=== PATIENT | male | born 1930 | race Caucasian/White ===

== ENCOUNTER 2016-10-18 09:31 | Day surgery (SDC) | payer OTHER, MEDICARE ==
[2016-10-18 10:06] VITALS: BMI 27.9
[2016-10-18] MEDS ORDERED: LIDOCAINE HCL/PF 1% SDV 5ML VIAL ONE (10:19)
[2016-10-18] MEDS ORDERED: PROPOFOL 20 ML ONE ×3 (10:20)
[2016-10-18 11:20] VITALS: TEMP 98.1
[2016-10-18 12:20] VITALS: BP 119/72; PULSE 54
== END 2016-10-18 12:24 | disposition home or self-care (01) ==
LOC: JASU-ENDO 09:31
PROVIDERS: ATTEND Internal Medicine Gastroenterology
PROC: 0DJ08ZZ Inspection of Upper Intestinal Tract, Via Natural or Artificial Opening Endoscopic (ICD-10-PCS; principal; 2016-10-18 10:00)
DX: D64.9 Anemia, unspecified (principal); K31.819 Angiodysplasia of stomach and duodenum without bleeding; K44.9 Diaphragmatic hernia without obstruction or gangrene

== ENCOUNTER 2018-01-08 15:00 | Inpatient (IN) | payer OTHER, MEDICARE ==
--- NOTE | 2018-01-08 15:15 | PDOC ---
Rapid Medical Evaluation Chief Complaint: Shortness of Breath Time Seen by Provider: 01/08/18 15:08 Medical Evaluation: Allergies Allergy/AdvReac Type Severity Reaction Status Date / Time No Known Allergies Allergy Verified 01/08/18 15:07 Vital Signs Temp Pulse Resp BP Pulse Ox 97.7 F 70 19 113/55 97 01/08/18 15:07 01/08/18 15:07 01/08/18 15:07 01/08/18 15:07 01/08/18 15:07 01/08/18 15:12 Pt c/o: productive cough x 3 weeks, no fever, no edema, no wt change, no chest pain Pt on brief exam: + rhonchi to [place] bases Pt ordered for: chest pa/lat Pt to proceed to the ED Discharge Disposition - Diagnosis Cough - Referrals - Patient Instructions - Post Discharge Activity
[2018-01-08] MEDS ORDERED: ALBUTEROL SO4 0.083% IH SOL 2.5 MG/3 ML VIAL.NEB. NEB ONE ×2 (18:06→19:39)
[2018-01-08] MEDS ORDERED: ALBUTEROL SO4 2.5/IPRATROPIUM 0.5 INH SOL 3 ML VIAL.NEB. NEB ONE ×4 (18:06→23:40)
[2018-01-08 19:20] LABS: INR 3.46 (0.82-1.09); PROTHROMBIN TIME (PATIENT) 39.1 SEC (9.98-11.88)
[2018-01-08 19:47] LABS: ALBUMIN 3.3 g/dl (3.4-5.0); ALK PHOS 100 U/L (45-117); ANION GAP 4 (8-16); BILIRUBIN,TOTAL 0.7 mg/dL (0.2-1.0); BLOOD UREA NITROGEN 28 mg/dL (7-18); CHLORIDE 108 mmol/L (98-107); CO2 28 mmol/L (21-32); CREATININE 1.3 mg/dL (0.7-1.3); GLUCOSE,RANDOM 125 mg/dL (74-106); POTASSIUM 3.6 mmol/L (3.5-5.1); SGOT/AST 35 U/L (15-37); SGPT/ALT 24 U/L (12-78); SODIUM 140 mmol/L (136-145); TOT PROT 6.6 g/dl (6.4-8.2)
[2018-01-08 20:20] LABS: BASO % 0.5 % (0-2.0); EOS % 1.4 % (0-4.5); HEMATOCRIT 30.6 % (35.4-49); HEMOGLOBIN 10.5 GM/dL (11.7-16.9); LYMPH % 9.7 % (8-40); MCH 32.5 pg (25.7-33.7); MCHC 34.4 g/dl (32.0-35.9); MEAN CELL VOLUME 94.6 fl (80-96); MEAN PLT VOLUME 9.3 fl (7.5-11.1); MONO % 7.4 % (3.8-10.2); PLATELET COUNT 127 K/MM3 (134-434); RBC 3.23 M/mm3 (4.00-5.60); RDW 16.1 % (11.9-15.9); WHITE BLOOD COUNT 9.5 K/mm3 (4.0-10.0)
[2018-01-08] MEDS ORDERED: FUROSEMIDE 40 MG/4 ML INJECTABLE VIAL IVPUSH ONE (20:59)
--- NOTE | 2018-01-08 21:15 | PDOC ---
History of Present Illness - General Chief Complaint: Shortness of Breath Stated Complaint: DIFFICULTY BREATHING Time Seen by Provider: 01/08/18 15:08 History Source: Patient Exam Limitations: No Limitations - History of Present Illness Initial Comments: 01/08/18 21:05 Patient is an 87M with history of CABG, afib, CHF here today complaining here today complaining of 2-3 weeks of worsening shortness of breath. He was evaluated in the [place] ED yesterday for similar complaints, where he AMA' d to be evaluated by his primary care physician. He endorses associated cough, worsening dyspnea on exertion, and fatigue. He denies chest pain. He endorses bilateral leg swelling. Denies fevers, chills. States that he tried a course of azithromycin with no effect. Past History - Past Medical History Allergies/Adverse Reactions: Allergies Allergy/AdvReac Type Severity Reaction Status Date / Time No Known Allergies Allergy Verified 01/08/18 15:07 Home Medications: Ambulatory Orders Allopurinol [Zyloprim -] 150 mg PO DAILY 03/22/12 Losartan Potassium [Cozaar -] 25 mg PO DAILY 03/22/12 Ranolazine [Ranexa -] 500 mg PO BID 03/22/12 Rosuvastatin Calcium [Crestor] 5 mg PO WEFR 03/22/12 Warfarin Na [Coumadin -] 3 mg PO DAILY 03/22/12 Ascorbate Calcium [Vitamin C] 500 mg PO DAILY 09/04/16 Cholecalciferol (Vitamin D3) [Vitamin D -] 400 unit PO DAILY 09/04/16 L.acidoph,Paracasei, B.lactis [Probiotic] 1 each PO DAILY 09/04/16 Multivitamin [Poly-Vitamin] 1 each PO DAILY 09/04/16 Furosemide [Lasix -] 40 mg PO DAILY tablet 09/08/16 Spironolactone [Aldactone -] 25 mg PO DAILY #30 tablet 09/08/16 Anemia: No Asthma: No Cancer: No Cardiac Disorders: Yes (CABG,CARDIAC STENT,ATRIAL FIBRILLATION) CVA: No COPD: No CHF: Yes Dementia: No Diabetes: No GI Disorders: Yes (C-DIFF, HX OF PERFORATED COLON AFTER HIP SURGERY) Disorders: (NEPHROLITHIASIS) HTN: Yes Hypercholesterolemia: Yes Liver Disease: No Seizures: No Thyroid Disease: No - Surgical History Abdominal Surgery: Yes (12/2011 hemicolectomy for perforated cecum) Appendectomy: Yes Cardiac Surgery: Yes (2 VESSEL CABG,CARDIAC STENT) Cholecystectomy: No Lung Surgery: No Neurologic Surgery: No Orthopedic Surgery: Yes (orif rt forearm; lt hip replacement 10 yrs ago; rt hip 2011) - Suicide/Smoking/Psychosocial Hx Smoking History: Former smoker Have you smoked in the past 12 months: No Number of Cigarettes Smoked Daily: 0 If you are a former smoker, when did you quit?: 1972 Information on smoking cessation initiated: No Hx Alcohol Use: Yes (SOCIAL) Drug/Substance Use Hx: No Substance Use Type: None Hx Substance Use Treatment: No Review of Systems - Review of Systems Able to Perform ROS?: Yes Comments:: 01/08/18 21:15 GENERAL/CONSTITUTIONAL: No fever or chills. No weakness. HEAD, EYES, EARS, NOSE AND THROAT: No change in vision. No sore throat. CARDIOVASCULAR: No chest pain. Positive for shortness of breath RESPIRATORY: Positive for cough, wheezing. GASTROINTESTINAL: No nausea, vomiting, diarrhea or constipation. GENITOURINARY: No dysuria, frequency, or change in urination. MUSCULOSKELETAL: No joint or muscle swelling or pain. No neck or back pain. SKIN: No rash NEUROLOGIC: No headache, vertigo, loss of consciousness, or change in strength/ sensation. HEMATOLOGIC/LYMPHATIC: No anemia, no history of blood clots. ALLERGIC/IMMUNOLOGIC: No hives or skin allergy. *Physical Exam - Vital Signs Last Vital Signs Temp Pulse Resp BP Pulse Ox 97.7 F 70 19 113/55 97 01/08/18 15:07 01/08/18 15:07 01/08/18 15:07 01/08/18 15:07 01/08/18 15:07 - Physical Exam Comments: 01/08/18 21:15 GENERAL: Awake, alert, and fully oriented, in no acute distress HEAD: No signs of trauma, normocephalic, atraumatic EYES: PERRLA, EOMI, sclera anicteric, conjunctiva clear ENT: Auricles normal inspection, hearing grossly normal, nares patent, oropharynx clear without exudates. Moist mucosa NECK: Normal ROM, supple, no lymphadenopathy, JVD, or masses LUNGS: No respiratory distress, no accessory muscle use, wheezes, coarse breath sounds bilaterally HEART: Regular rate and rhythm, normal S1 and S2, no murmurs, rubs or gallops, peripheral pulses normal and equal bilaterally. ABDOMEN: Soft, nontender, normoactive bowel sounds. No guarding, no rebound. No masses EXTREMITIES: Normal inspection, Normal range of motion, positive for lower extremity edema. No clubbing or cyanosis. NEUROLOGICAL: Cranial nerves II through XII grossly intact. Normal speech, normal gait, no focal sensorimotor deficits SKIN: Warm, Dry, normal turgor, no rashes or lesions noted. ED Treatment Course - LABORATORY CBC & Chemistry Diagram: 01/08/18 18:54 01/08/18 18:54 - ADDITIONAL ORDERS Additional order review: Laboratory Results 01/08/18 01/08/18 01/08/18 18:55 18:54 18:54 WBC RBC Hgb Hct MCV MCH MCHC RDW Plt Count MPV Neutrophils % Lymphocytes % Monocytes % Eosinophils % Basophils % PT with INR 39.10 H INR 3.46 H Sodium Potassium Chloride Carbon Dioxide Anion Gap BUN Creatinine Creat Clearance w eGFR Random Glucose Calcium Total Bilirubin AST ALT Alkaline Phosphatase Creatine Kinase 394 H Troponin I 0.05 D B-Natriuretic Peptide 4646.77 H Total Protein Albumin 01/08/18 01/08/18 18:54 18:54 WBC 9.5 D RBC 3.23 L Hgb 10.5 L Hct 30.6 L MCV 94.6 MCH 32.5 MCHC 34.4 RDW 16.1 H Plt Count 127 L D MPV 9.3 Neutrophils % 81.0 Lymphocytes % 9.7 D Monocytes % 7.4 Eosinophils % 1.4 D Basophils % 0.5 PT with INR INR Sodium 140 Potassium 3.6 Chloride 108 H Carbon Dioxide 28 Anion Gap 4 L BUN 28 H Creatinine 1.3 Creat Clearance w eGFR 52.10 Random Glucose 125 H D Calcium 8.0 L Total Bilirubin 0.7 D AST 35 D ALT 24 D Alkaline Phosphatase 100 Creatine Kinase Troponin I B-Natriuretic Peptide Total Protein 6.6 Albumin 3.3 L 01/08/18 18:54 RBC 3.23 L MCV 94.6 MCHC 34.4 RDW 16.1 H MPV 9.3 Neutrophils % 81.0 Lymphocytes % 9.7 D Monocytes % 7.4 Eosinophils % 1.4 D Basophils % 0.5 - Medications Given in the ED: ED Medications Discontinued Medications Generic Name Dose Route Start Last Admin Trade Name Freq PRN Reason Stop Dose Admin Albuterol Sulfate 1 amp 01/08/18 18:06 01/08/18 19:54 Ventolin 0.083% Nebulizer Soln - NEB 01/08/18 18:07 1 amp ONCE ONE Administration Albuterol/Ipratropium 1 amp 01/08/18 18:06 01/08/18 19:54 Duoneb - NEB 01/08/18 18:07 1 amp ONCE ONE Administration Medical Decision Making - Medical Decision Making 01/08/18 21:17 Patient is 87M with history of CABG, chf, HTN, HLD, afib here today with shortness of breath. Vital signs stable and normal. Differential diagnosis includes, but is not limited to: pneumonia, chf exacerbation, obstructive lung disease. EKG shows junctional rhythm with rate of 60. Diffusely flattened t waves. No st elevations/depressions. Normal QRS, QTc. 01/08/18 21:19 Laboratory Tests 01/08/18 01/08/18 01/08/18 00:05 00:05 00:05 WBC 14.6 H D Hgb 11.5 L RDW 16.6 H INR 3.12 H Troponin I B-Natriuretic Peptide 3841.27 H 01/08/18 01/08/18 01/08/18 00:05 18:54 18:54 WBC 9.5 D Hgb 10.5 L RDW 16.1 H INR Troponin I 0.11 H D 0.05 D B-Natriuretic Peptide 01/08/18 01/08/18 18:54 18:55 WBC Hgb RDW INR 3.46 H Troponin I B-Natriuretic Peptide 4646.77 H CBC shows resolution of his leukocytosis from this morning. Troponin has moved from 0.11 to .05. BNP has elevated. INR therapeutic. CXR shows pulmonary vascular changes. Will give lasix 20mg IV. Will admit to hospitalist for chf exacerbation. *DC/Admit/Observation/Transfer Diagnosis at time of Disposition: CHF (congestive heart failure) - Discharge Dispostion Condition at time of disposition: Good Admit: Yes - Referrals - Patient Instructions - Post Discharge Activity
--- NOTE | 2018-01-08 21:17 | PDOC ---
Attending Attestation - Resident Resident Name: Ryan Figueroa - ED Attending Attestation I have performed the following: I have examined & evaluated the patient, The case was reviewed & discussed with the resident, I agree w/resident's findings & plan, Exceptions are as noted - HPI HPI: 01/08/18 21:16 87-year-old male presents with shortness of breath and some lower extremity edema. He has past medical history of coronary artery disease and CHF - Physicial Exam PE: 01/09/18 02:12 pt has scattered rhonchi on lung exam and LE edema - Medical Decision Making 01/09/18 02:13 pt admitted for chf ,IV lasix
[2018-01-08] MEDS ORDERED: FUROSEMIDE 40 MG/4 ML INJECTABLE VIAL ONE (22:08)
[2018-01-08] MEDS ORDERED: methylPREDNISolone NA SUCC 125 MG/2 ML VIAL IVPUSH ONE (22:45)
[2018-01-08] MEDS ORDERED: AZITHROMYCIN IVPB 500 MG in DEXTROSE 5%-WATER - 250 ML IVPB ONE (22:45)
--- NOTE | 2018-01-08 22:50 | HP ---
CHIEF COMPLAINT: sob x 2-3 weeks PCP: Shawna HISTORY OF PRESENT ILLNESS: This is an 87 year old male with a past medical history of CAD, Afib, CHF, HTN, HLD who presented to the eD with a 2-3 week history of SOB x 2-3 weeks. Pt was at [facility] yesterday and signed AMA. Upon exam pt still with SOB. Denies chest pain. ER course was notable for: (1) WBC 9.5 (2) BNP 4646, Trop 0.05 (3) INR 3.45 Recent Travel: pt denies PAST MEDICAL HISTORY: CAD s/p CABG and stent, AFib on warfarin, CHF, HTN, HLD, C diff, perforated colon PAST SURGICAL HISTORY: hemicolectomy 12/2011 2vCABG cardiac stent ORIF R forearm L hip replacement approx 10y ago R hip replacement 2011 Social History: Smoking: pt denies current, quit 45y ago, previous 1ppd Alcohol: pt denies Drugs: pt denies Family History: mother in her 70s, HF father in his 60s, brain attack brother early 70s, [place] unknown typ brother late 60s, HF Allergies No Known Allergies Allergy (Verified 01/08/18 15:07) HOME MEDICATIONS: 3 Medication Instructions Recorded Allopurinol [Zyloprim -] 150 mg PO DAILY 03/22/12 Losartan Potassium [Cozaar -] 25 mg PO DAILY 03/22/12 Ranolazine [Ranexa -] 500 mg PO BID 03/22/12 Rosuvastatin Calcium [Crestor] 5 mg PO WEFR 03/22/12 Warfarin Na [Coumadin -] 3 mg PO DAILY 03/22/12 Ascorbate Calcium [Vitamin C] 500 mg PO DAILY 09/04/16 Cholecalciferol (Vitamin D3) 400 unit PO DAILY 09/04/16 [Vitamin D -] L.acidoph,Paracasei, B.lactis 1 each PO DAILY 09/04/16 [Probiotic] Multivitamin [Poly-Vitamin] 1 each PO DAILY 09/04/16 Furosemide [Lasix -] 40 mg PO DAILY tablet 09/08/16 Spironolactone [Aldactone -] 25 mg PO DAILY #30 tablet 09/08/16 REVIEW OF SYSTEMS CONSTITUTIONAL: Absent: fever, chills, diaphoresis, generalized weakness, malaise, loss of appetite, weight change HEENT: Absent: rhinorrhea, nasal congestion, throat pain, throat swelling, difficulty swallowing, mouth swelling, ear pain, eye pain, visual changes CARDIOVASCULAR: Absent: chest pain, syncope, palpitations, irregular heart rate, lightheadedness , peripheral edema RESPIRATORY: Present: cough, shortness of breath, dyspnea with exertion, orthopnea, wheezing Absent: stridor, hemoptysis GASTROINTESTINAL: Absent: abdominal pain, abdominal distension, nausea, vomiting, diarrhea, constipation, melena, hematochezia GENITOURINARY: Absent: dysuria, frequency, urgency, hesitancy, hematuria, flank pain, genital pain MUSCULOSKELETAL: Absent: myalgia, arthralgia, joint swelling, back pain, neck pain SKIN: Absent: rash, itching, pallor HEMATOLOGIC/IMMUNOLOGIC: Absent: easy bleeding, easy bruising, lymphadenopathy, frequent infections ENDOCRINE: Absent: unexplained weight gain, unexplained weight loss, heat intolerance, cold intolerance NEUROLOGIC: Absent: headache, focal weakness or paresthesias, dizziness, unsteady gait, seizure, mental status changes, bladder or bowel incontinence PSYCHIATRIC: Absent: anxiety, depression, suicidal or homicidal ideation, hallucinations. PHYSICAL EXAMINATION Vital Signs - 24 hr 3 01/08/18 15:07 Temperature 97.7 F Pulse Rate 70 Respiratory 19 Rate Blood Pressure 113/55 O2 Sat by Pulse 97 Oximetry (%) GENERAL: Awake, alert, and fully oriented, in no acute distress. HEAD: Normal with no signs of trauma. EYES: Pupils equal, round and reactive to light, extraocular movements intact, sclera anicteric, conjunctiva clear. No lid lag. EARS, NOSE, THROAT: Ears normal, nares patent, oropharynx clear without exudates. Moist mucous membranes. NECK: Normal range of motion, supple without lymphadenopathy, JVD, or masses. LUNGS: + wheezing and rhonchi bilat. No accessory muscle use. HEART: Regular rate and rhythm, normal S1 and S2 without murmur, rub or gallop. ABDOMEN: Soft, nontender, not distended, normoactive bowel sounds, no guarding, no rebound, no masses. No hepatomegaly or splenomegaly. MUSCULOSKELETAL: Normal range of motion at all joints. No bony deformities or tenderness. No CVA tenderness. UPPER EXTREMITIES: 2+ pulses, warm, well-perfused. No cyanosis. No clubbing. No peripheral edema. LOWER EXTREMITIES: 2+ pulses, warm, well-perfused. No calf tenderness. No peripheral edema. NEUROLOGICAL: Cranial nerves II-XII intact. Normal speech. Normal gait. PSYCHIATRIC: Cooperative. Good eye contact. Appropriate mood and affect. SKIN: Warm, dry, normal turgor, no rashes or lesions noted, normal capillary refill. Laboratory Results - last 24 hr 3 01/08/18 01/08/18 01/08/18 18:54 18:54 18:54 WBC 9.5 D RBC 3.23 L Hgb 10.5 L Hct 30.6 L MCV 94.6 MCH 32.5 MCHC 34.4 RDW 16.1 H Plt Count 127 L D MPV 9.3 Neutrophils % 81.0 Lymphocytes % 9.7 D Monocytes % 7.4 Eosinophils % 1.4 D Basophils % 0.5 PT with INR INR Sodium 140 Potassium 3.6 Chloride 108 H Carbon Dioxide 28 Anion Gap 4 L BUN 28 H Creatinine 1.3 Creat Clearance w eGFR 52.10 Random Glucose 125 H D Calcium 8.0 L Total Bilirubin 0.7 D AST 35 D ALT 24 D Alkaline Phosphatase 100 Creatine Kinase 394 H Troponin I 0.05 D B-Natriuretic Peptide Total Protein 6.6 Albumin 3.3 L 3 01/08/18 01/08/18 18:54 18:55 WBC RBC Hgb Hct MCV MCH MCHC RDW Plt Count MPV Neutrophils % Lymphocytes % Monocytes % Eosinophils % Basophils % PT with INR 39.10 H INR 3.46 H Sodium Potassium Chloride Carbon Dioxide Anion Gap BUN Creatinine Creat Clearance w eGFR Random Glucose Calcium Total Bilirubin AST ALT Alkaline Phosphatase Creatine Kinase Troponin I B-Natriuretic Peptide 4646.77 H Total Protein Albumin ASSESSMENT/PLAN: 87yM with PMH CAD s/p CABG and stent, AFib on warfarin, CHF, HTN, HLD, C diff, perforated colon presented to the ED with a 2-3 week history of worsening SOB, [place]. CHF exac - given lasix 20 IVP in ed, nurse to inform if no urine output and will increase dose - lasix 40mg IVP daily - cardiology consult Acute bronchitis - solumedrol 125 in ED, 40mg Q6h - azithromycin 500mg IVPB in ED, 250 daily - consider pulm consult - influenza swab Afib - INR supratherapeutic, hold until therapeutic - rate controlled HTN - cont cozaar CAD - cont ranexa, crestor DVT PPX - on coumadin FEN - tolerating po - bmp in am - low sodium diet Dispo: pt currently requires further observation for management of his emergent condition. Visit type - Emergency Visit Emergency Visit: Yes ED Registration Date: 01/08/18 Care time: The patient presented to the Emergency Department on the above date and was hospitalized for further evaluation of their emergent condition. - New Patient This patient is new to me today: Yes Date on this admission: 01/08/18 - Critical Care Critical Care patient: No Hospitalist Screening - Colonoscopy Questionnaire Colonoscopy Questionnaire: Colonoscopy Questionnaire - Patient: 50 - 75 years old and never had a screening colonoscopy: No History of colon or rectal polyps, or CA: No History of IBD, Crohn's disease or UC: No History of abdominal radiation therapy as a child: No - Relative: 1 with colon or rectal CA, or polyps at age 60 or younger: No Colon or rectal CA diagnosed at age 45 or younger: No Multiple relatives with colon or rectal CA: No - Outcome: Screening Result: Negative Screen
[2018-01-08] MEDS ORDERED: AZITHROMYCIN IVPB 250 ML IVPB ONE (23:41)
[2018-01-08] MEDS ORDERED: methylPREDNISolone NA SUCC 125 MG/2 ML VIAL ONE ×2 (23:41→23:42)
[2018-01-09] MEDS ORDERED: FUROSEMIDE 40 MG/4 ML INJECTABLE VIAL IVPUSH ONE (01:24)
[2018-01-09] MEDS ORDERED: FUROSEMIDE 40 MG/4 ML INJECTABLE VIAL ONE ×2 (01:34→10:08)
[2018-01-09] MEDS ORDERED: methylPREDNISolone NA SUCC 40 MG/1 ML VIAL ONE ×2 (01:37→10:05)
[2018-01-09] MEDS: methylPREDNISolone NA SUCC 40 MG/1 ML VIAL IVPUSH SCH ×2 (03:13→10:06)
[2018-01-09 07:57] LABS: BASO % 0.2 % (0-2.0); HEMATOCRIT 29.9 % (35.4-49); HEMOGLOBIN 10.1 GM/dL (11.7-16.9); LYMPH % 3.4 % (8-40); MCHC 33.7 g/dl (32.0-35.9); MEAN CELL VOLUME 94.9 fl (80-96); MEAN PLT VOLUME 8.4 fl (7.5-11.1); NEUT % 95.4 % (42.8-82.8); PLATELET COUNT 116 K/MM3 (134-434); RBC 3.15 M/mm3 (4.00-5.60); RDW 15.8 % (11.9-15.9); WHITE BLOOD COUNT 7.4 K/mm3 (4.0-10.0)
[2018-01-09 08:10] LABS: ANION GAP 6 (8-16); BLOOD UREA NITROGEN 30 mg/dL (7-18); CALCIUM 8.1 mg/dL (8.5-10.1); CHLORIDE 104 mmol/L (98-107); CO2 28 mmol/L (21-32); CREATININE 1.4 mg/dL (0.7-1.3); GLUCOSE,RANDOM 172 mg/dL (74-106); MAGNESIUM 1.9 mg/dL (1.8-2.4); PHOSPHOROUS 3.3 mg/dL (2.5-4.9); POTASSIUM 3.8 mmol/L (3.5-5.1); SODIUM 138 mmol/L (136-145)
[2018-01-09] MEDS ORDERED: ALBUTEROL SO4 2.5/IPRATROPIUM 0.5 INH SOL 3 ML VIAL.NEB. NEB ONE ×2 (08:46→10:07)
[2018-01-09] MEDS ORDERED: FUROSEMIDE 40 MG/4 ML INJECTABLE VIAL IVPUSH SCH (10:00)
[2018-01-09] MEDS: LACTOBACILLUS ACIDOPHILUS 1 CAP PO SCH (10:00)
[2018-01-09] MEDS: LOSARTAN POTASSIUM 50 MG TABLET (FP) PO SCH (10:01)
[2018-01-09] MEDS: MULTIVITAMINS (DAILY MVI) TABLET (FP) PO SCH (10:02)
[2018-01-09] MEDS: ASCORBIC ACID 500 MG TABLET (FP) PO SCH (10:02)
[2018-01-09] MEDS: RANOLAZINE E.R. 500 MG TABLET (FP) PO SCH ×2 (10:02→22:27)
[2018-01-09] MEDS: ALLOPURINOL 100 MG TABLET (FP) PO SCH (10:03)
[2018-01-09] MEDS: CHOLECALCIFEROL (VITAMIN D3) 400 UNIT TABLET (FP) PO SCH (10:03)
[2018-01-09] MEDS: ALBUTEROL SO4 2.5/IPRATROPIUM 0.5 INH SOL 3 ML VIAL.NEB. NEB SCH ×4 (10:08→20:44)
[2018-01-09] MEDS: ROSUVASTATIN CA 5 MG TABLET (FP) PO SCH (10:28)
--- NOTE | 2018-01-09 10:45 | PN ---
Progress Note, Physician Chief Complaint: Mr Aleman says he is doing well today. Says he is still short of breath but is feeling better. No cp or n/v. - Current Medication List Current Medications: Active Medications Albuterol/Ipratropium (Duoneb -) 1 amp NEB RQID [facility] Last Admin: 01/09/18 10:08 Dose: 1 amp Allopurinol (Zyloprim -) 150 mg PO DAILY [facility] Last Admin: 01/09/18 10:03 Dose: 150 mg Ascorbic Acid (Vitamin C -) 500 mg PO DAILY [facility] Last Admin: 01/09/18 10:02 Dose: 500 mg Cholecalciferol (Vitamin D3 -) 400 unit PO DAILY [facility] Last Admin: 01/09/18 10:03 Dose: 400 unit Furosemide (Lasix Injection -) 40 mg IVPUSH DAILY [facility] Last Admin: 01/09/18 10:09 Dose: 40 mg Azithromycin 250 mg/ Dextrose 250 mls @ 250 mls/hr IVPB [facility] Lactobacillus Acidophilus (Bacid -) 1 tab PO DAILY [facility] Last Admin: 01/09/18 10:00 Dose: 1 tab Losartan Potassium (Cozaar -) 25 mg PO DAILY [facility] Last Admin: 01/09/18 10:01 Dose: 25 mg Methylprednisolone Sodium Succinate (Solu-Medrol -) 40 mg IVPUSH Q6H-IV [facility] Last Admin: 01/09/18 10:06 Dose: 40 mg Multivitamins/Minerals/Vitamin C (Tab-A-Vit -) 1 tab PO DAILY [facility] Last Admin: 01/09/18 10:02 Dose: 1 tab Ranolazine (Ranexa -) 500 mg PO BID [facility] Last Admin: 01/09/18 10:02 Dose: 500 mg Rosuvastatin Calcium (Crestor -) 5 mg PO WEFR [facility] Last Admin: 01/09/18 10:28 Dose: 5 mg - Objective Vital Signs: Vital Signs Temperature 36.9 C 01/09/18 00:02 Pulse Rate 62 01/09/18 07:00 Respiratory Rate 18 01/09/18 07:00 Blood Pressure 123/75 01/09/18 07:00 O2 Sat by Pulse Oximetry (%) 98 01/09/18 07:05 Constitutional: Yes: Well Nourished, No Distress, Calm Cardiovascular: Yes: Regular Rate and Rhythm. No: Gallop, Murmur, Rub Respiratory: Yes: Regular, On Nasal O2, Rhonchi. No: CTA Bilaterally, Rales, Wheezes Gastrointestinal: Yes: Normal Bowel Sounds, Soft. No: Distention, Tenderness Extremities: Yes: WNL Edema: Yes Edema: LLE: Trace, RLE: Trace Labs: CBC, BMP 01/09/18 06:44 01/09/18 06:44 INR, PTT INR 3.46 (0.82-1.09) H 01/08/18 18:54 Problem List - Problems (1) Acute on chronic diastolic (congestive) heart failure Assessment/Plan: -case d/w cardiology -check ECHO -continue lasix 40mg IV daily -continue losartan -monitor for improvement Code(s): I50.33 - ACUTE ON CHRONIC DIASTOLIC (CONGESTIVE) HEART FAILURE (2) COPD (chronic obstructive pulmonary disease) Assessment/Plan: -seen on chest x-ray -continue bronchodilators -change solumedrol to prednisone -attempt to minimize steroids -continue azithromycin Code(s): J44.9 - CHRONIC OBSTRUCTIVE PULMONARY DISEASE, UNSPECIFIED (3) Atrial fibrillation Assessment/Plan: -sounded in sinus rhythm on exam -rate controlled -supratherapeutic INR, hold coumadin Code(s): I48.91 - UNSPECIFIED ATRIAL FIBRILLATION Qualifiers: Atrial fibrillation type: chronic Qualified Code(s): I48.2 - Chronic atrial fibrillation (4) CAD (coronary artery disease) Assessment/Plan: -quiescent -cardiology following -continue home regimen Code(s): I25.10 - ATHSCL HEART DISEASE OF [place] CORONARY ARTERY W/O ANG PCTRS Qualifiers: Coronary Disease-Associated Artery/Lesion type: [place] artery [place] vs. transplanted heart: [place] heart Associated angina: without angina Qualified Code(s): I25.10 - Atherosclerotic heart disease of [place] coronary artery without angina pectoris (5) Elevated INR Assessment/Plan: -hold coumadin -recheck INR in am Code(s): R79.1 - ABNORMAL COAGULATION PROFILE (6) HTN (hypertension) Assessment/Plan: -well controlled -continue current management Code(s): I10 - ESSENTIAL (PRIMARY) HYPERTENSION Qualifiers: Hypertension type: essential hypertension Qualified Code(s): I10 - Essential (primary) hypertension (7) Hyperlipidemia Assessment/Plan: -continue crestor Code(s): E78.5 - HYPERLIPIDEMIA, UNSPECIFIED Qualifiers: Hyperlipidemia type: pure hypercholesterolemia
[2018-01-09 11:17] LABS: INR 3.21 (0.82-1.09); PROTHROMBIN TIME (PATIENT) 36.3 SEC (9.98-11.88)
--- NOTE | 2018-01-09 11:20 | EKG ---
Test Reason : Blood Pressure : / mmHG Vent. Rate : 060 BPM Atrial Rate : 312 BPM P-R Int : 000 ms QRS Dur : 108 ms QT Int : 452 ms P-R-T Axes : 000 086 -64 degrees QTc Int : 452 ms POOR DATA QUALITY, INTERPRETATION MAY BE ADVERSELY AFFECTED JUNCTIONAL RHYTHM T WAVE ABNORMALITY, CONSIDER INFERIOR ISCHEMIA ABNORMAL ECG WHEN COMPARED WITH ECG OF 07-JAN-2018 23:49, T WAVE INVERSION NOW EVIDENT IN INFERIOR LEADS Confirmed by CARRILLO BASHIR, JA ([id number] on 01/09/2018 11:19:52 AM Referred By: Confirmed By:JA VIZCAINO MD
--- NOTE | 2018-01-09 14:20 | CON.CARD ---
Consult Consult Specialty:: Cardiology Referred by:: Ryan Matos MD Reason for Consultation:: Dyspnea - History of Present Illness Chief Complaint: Dyspnea History of Present Illness: PCP: Shawna HISTORY OF PRESENT ILLNESS: This is an 87 year old male with a past medical history of CAD s/p CABG (JHAVERI- mLAD, SVG->RPDA), s/p LUIS EDUARDO LAD, persistent Afib on coumadin per INR, diastolic dysfunction, HTN, HLD, moderate carotid stenosis who presented with a 2-3 week history of SOB with exertion and orthopnea improved with initiation of diuresis. He denies associated sxs of chest pain, near or true syncope, palpitations, PND, LE edema, medication or diet noncompliance or NSAID use. ER course was notable for: (1) WBC 9.5 (2) BNP 4646, Trop 0.05 (3) INR 3.45 Recent Travel: pt denies PAST MEDICAL HISTORY: CAD s/p CABG and stent, AFib on warfarin, CHF, HTN, HLD, C diff, perforated colon PAST SURGICAL HISTORY: hemicolectomy 12/2011 2vCABG cardiac stent ORIF R forearm L hip replacement approx 10y ago R hip replacement 2011 Social History: Smoking: pt denies current, quit 45y ago, previous 1ppd Alcohol: pt denies Drugs: pt denies Family History: mother in her 70s, HF father in his 60s, brain attack brother early 70s, [place] unknown typ brother late 60s, HF Allergies No Known Allergies Allergy (Verified 01/08/18 15:07) - History Source History Provided By: Patient Limitations to Obtaining History: No Limitations - Past Medical History Cardio/Vascular: Yes: AFIB, CAD, HTN, Hyperlipdemia - Past Surgical History Past Surgical History: Yes: CABG, Joint Replacement, Stent - Alcohol/Substance Use Hx Alcohol Use: Yes (SOCIAL) History of Substance Use: reports: None - Smoking History Smoking history: Former smoker Have you smoked in the past 12 months: No Aproximately how many cigarettes per day: 0 If you are a former smoker, when did you quit?: 1971 - Social History ADL: Independent History of Recent Travel: No Home Medications - Allergies Allergies/Adverse Reactions: Allergies Allergy/AdvReac Type Severity Reaction Status Date / Time No Known Allergies Allergy Verified 01/08/18 15:07 - Home Medications Home Medications: Ambulatory Orders Allopurinol [Zyloprim -] 150 mg PO DAILY 03/22/12 Losartan Potassium [Cozaar -] 25 mg PO DAILY 03/22/12 Ranolazine [Ranexa -] 500 mg PO BID 03/22/12 Rosuvastatin Calcium [Crestor] 5 mg PO WEFR 03/22/12 Warfarin Na [Coumadin -] 3 mg PO DAILY 03/22/12 Ascorbate Calcium [Vitamin C] 500 mg PO DAILY 09/04/16 Cholecalciferol (Vitamin D3) [Vitamin D -] 400 unit PO DAILY 09/04/16 L.acidoph,Paracasei, B.lactis [Probiotic] 1 each PO DAILY 09/04/16 Multivitamin [Poly-Vitamin] 1 each PO DAILY 09/04/16 Furosemide [Lasix -] 40 mg PO DAILY tablet 09/08/16 Spironolactone [Aldactone -] 25 mg PO DAILY #30 tablet 09/08/16 Family Disease History - Family Disease History Family Disease History: Heart Disease: Mother, Brother, Other: Father Review of Systems - Review of Systems Cardiovascular: reports: Shortness of Breath Respiratory: reports: Orthopnea - Risk Factors Known Risk Factors: Yes: Hypercholesterolemia, Hypertension Vital Signs: Vital Signs Temperature 98.5 F 01/09/18 00:02 Pulse Rate 62 01/09/18 07:00 Respiratory Rate 18 01/09/18 07:00 Blood Pressure 123/75 01/09/18 07:00 O2 Sat by Pulse Oximetry (%) 98 01/09/18 07:05 Constitutional: Yes: No Distress, Calm Neck: Yes: Supple Respiratory: Yes: Regular, Diminished Gastrointestinal: Yes: Normal Bowel Sounds, Soft Cardiovascular: Yes: Regular Rate and Rhythm JVD: No Carotid Bruit: No Heart Sounds: Yes: S1, S2 Murmur: Yes: Systolic Murmur, Grade 1 Edema: No - Other Data Labs, Other Data: CBC, BMP 01/09/18 06:44 01/09/18 06:44 INR, PTT INR 3.21 (0.82-1.09) H 01/09/18 10:00 Troponin, BNP 01/08/18 01/08/18 01/09/18 18:54 18:55 01:00 Troponin I 0.05 D 0.06 H B-Natriuretic Peptide 4646.77 H 01/09/18 06:44 Troponin I 0.04 D B-Natriuretic Peptide Troponin, BNP 01/08/18 01/08/18 01/09/18 18:54 18:55 01:00 Troponin I 0.05 D 0.06 H B-Natriuretic Peptide 4646.77 H 01/09/18 06:44 Troponin I 0.04 D B-Natriuretic Peptide Afib @ 60 PRWP Echo: Report Reviewed Ejection Fraction %: LVEF > or = 40 % Imaging - Results Chest X-ray: Report Reviewed (COPD, trace effusion) Problem List - Problems (1) COPD (chronic obstructive pulmonary disease) Code(s): J44.9 - CHRONIC OBSTRUCTIVE PULMONARY DISEASE, UNSPECIFIED Qualifiers: COPD type: unspecified COPD Qualified Code(s): J44.9 - Chronic obstructive pulmonary disease, unspecified (2) Acute on chronic diastolic (congestive) heart failure Code(s): I50.33 - ACUTE ON CHRONIC DIASTOLIC (CONGESTIVE) HEART FAILURE (3) Anemia Code(s): D64.9 - ANEMIA, UNSPECIFIED Qualifiers: Anemia type: unspecified type Qualified Code(s): D64.9 - Anemia, unspecified (4) Atrial fibrillation Code(s): I48.91 - UNSPECIFIED ATRIAL FIBRILLATION Qualifiers: Atrial fibrillation type: chronic Qualified Code(s): I48.2 - Chronic atrial fibrillation (5) Elevated INR Code(s): R79.1 - ABNORMAL COAGULATION PROFILE (6) HTN (hypertension) Code(s): I10 - ESSENTIAL (PRIMARY) HYPERTENSION Qualifiers: Hypertension type: essential hypertension Qualified Code(s): I10 - Essential (primary) hypertension (7) Hx of CABG Code(s): Z95.1 - PRESENCE OF AORTOCORONARY BYPASS GRAFT (8) Hyperlipidemia Code(s): E78.5 - HYPERLIPIDEMIA, UNSPECIFIED Qualifiers: Hyperlipidemia type: pure hypercholesterolemia (9) Over-anticoagulated Code(s): [id number] - (10) Pulmonary hypertension Code(s): I27.2 - OTHER SECONDARY PULMONARY HYPERTENSION * DO NOT USE * Assessment/Plan 10/26/2016 Echo: Normal LV size and fxn, mod-severe TR RVSP 56 mmHg 11/07/2016 P-Myoview: No ischemia, LVEF 72% 1. Acute on chronic LV diastolic failure with mod-severe TR 2. CAD s/p CABG and LUIS EDUARDO LAD, angina pectoris 3. Persistent AFib with slow ventricular response [id number] on warfarin with supratherapeutic INR 4. HTN/HCVD 5. HLD, 6. C diff, perforated colon post partial colectomy 7. COPD 8. Anemia 9. Acute on CKD referable to #1 P:1. IV diuresis with monitor diuretic response, renal fxn and electrolytes 2. Continue losartan 25 qd, Ranexa 500 bid, dose Coumadin per INR, Crestor 5 qd 3. BD, rapid steroid taper, O2 as needed 4. Repeat echocardiogram to assess ventricular and valve fxn 5. Thank you for consultative opportunity
[2018-01-09] MEDS: AZITHROMYCIN IVPB 250 MG in DEXTROSE 5%-WATER - 250 ML IVPB SCH (22:59)
[2018-01-10 01:06] VITALS: BMI 28.6
[2018-01-10] MEDS: ALBUTEROL SO4 2.5/IPRATROPIUM 0.5 INH SOL 3 ML VIAL.NEB. NEB SCH ×4 (07:48→19:37)
[2018-01-10 08:51] LABS: BASO % 0.1 % (0-2.0); LYMPH % 4.8 % (8-40); MCH 32.4 pg (25.7-33.7); MCHC 34.6 g/dl (32.0-35.9); MEAN CELL VOLUME 93.8 fl (80-96); MEAN PLT VOLUME 8.2 fl (7.5-11.1); MONO % 5.7 % (3.8-10.2); NEUT % 89.4 % (42.8-82.8); PLATELET COUNT 140 K/MM3 (134-434); RBC 3.09 M/mm3 (4.00-5.60); WHITE BLOOD COUNT 13.6 K/mm3 (4.0-10.0)
[2018-01-10 08:57] LABS: INR 3.14 (0.82-1.09); PROTHROMBIN TIME (PATIENT) 35.5 SEC (9.98-11.88)
[2018-01-10 09:17] LABS: ANION GAP 8 (8-16); BLOOD UREA NITROGEN 52 mg/dL (7-18); CALCIUM 7.9 mg/dL (8.5-10.1); CHLORIDE 101 mmol/L (98-107); CO2 27 mmol/L (21-32); CREATININE 2.1 mg/dL (0.7-1.3); GLUCOSE,RANDOM 145 mg/dL (74-106); MAGNESIUM 1.9 mg/dL (1.8-2.4); PHOSPHOROUS 3.7 mg/dL (2.5-4.9); POTASSIUM 3.8 mmol/L (3.5-5.1); SODIUM 136 mmol/L (136-145)
[2018-01-10] MEDS: predniSONE 20 MG TABLET (UD) PO SCH (09:34)
[2018-01-10] MEDS: LACTOBACILLUS ACIDOPHILUS 1 CAP PO SCH (09:34)
[2018-01-10] MEDS: MULTIVITAMINS (DAILY MVI) TABLET (FP) PO SCH (09:35)
[2018-01-10] MEDS: ALLOPURINOL 100 MG TABLET (FP) PO SCH (09:35)
[2018-01-10] MEDS: RANOLAZINE E.R. 500 MG TABLET (FP) PO SCH ×2 (09:35→22:24)
[2018-01-10] MEDS: ASCORBIC ACID 500 MG TABLET (FP) PO SCH (09:35)
[2018-01-10] MEDS: CHOLECALCIFEROL (VITAMIN D3) 400 UNIT TABLET (FP) PO SCH (09:36)
[2018-01-10] MEDS: LOSARTAN POTASSIUM 50 MG TABLET (FP) PO SCH (09:37)
--- NOTE | 2018-01-10 10:46 | PN ---
Progress Note, Physician History of Present Illness: SOB with exertion and orthopnea improved with diuresis, but Cr increased and diuretics held. - Current Medication List Current Medications: Active Medications Albuterol/Ipratropium (Duoneb -) 1 amp NEB RQID [facility] Last Admin: 01/10/18 07:48 Dose: 1 amp Allopurinol (Zyloprim -) 150 mg PO DAILY [facility] Last Admin: 01/10/18 09:35 Dose: 150 mg Ascorbic Acid (Vitamin C -) 500 mg PO DAILY [facility] Last Admin: 01/10/18 09:35 Dose: 500 mg Cholecalciferol (Vitamin D3 -) 400 unit PO DAILY [facility] Last Admin: 01/10/18 09:36 Dose: 400 unit Azithromycin 250 mg/ Dextrose 250 mls @ 250 mls/hr IVPB HS [facility] Last Admin: 01/09/18 22:59 Dose: 250 mls/hr Lactobacillus Acidophilus (Bacid -) 1 tab PO DAILY [facility] Last Admin: 01/10/18 09:34 Dose: 1 tab Losartan Potassium (Cozaar -) 25 mg PO DAILY [facility] Last Admin: 01/10/18 09:37 Dose: 25 mg Multivitamins/Minerals/Vitamin C (Tab-A-Vit -) 1 tab PO DAILY [facility] Last Admin: 01/10/18 09:35 Dose: 1 tab Prednisone (Deltasone -) 60 mg PO DAILY [facility] Last Admin: 01/10/18 09:34 Dose: 60 mg Ranolazine (Ranexa -) 500 mg PO BID [facility] Last Admin: 01/10/18 09:35 Dose: 500 mg Rosuvastatin Calcium (Crestor -) 5 mg PO WEFR [facility] Last Admin: 01/09/18 10:28 Dose: 5 mg - Objective Vital Signs: Vital Signs Temperature 98.3 F 01/10/18 09:22 Pulse Rate 94 H 01/10/18 09:22 Respiratory Rate 18 01/10/18 09:22 Blood Pressure 100/58 01/10/18 09:22 O2 Sat by Pulse Oximetry (%) 97 01/09/18 21:00 Constitutional: Yes: No Distress, Calm Neck: Yes: Supple Cardiovascular: Yes: Regular Rate and Rhythm, Murmur (2/6 SM) Respiratory: Yes: Regular, Diminished Gastrointestinal: Yes: Normal Bowel Sounds, Soft Edema: No Labs: CBC, BMP 01/10/18 08:14 03/29/18 08:14 INR, PTT INR 3.14 (0.82-1.09) H 01/10/18 08:14 Problem List - Problems (1) COPD (chronic obstructive pulmonary disease) Code(s): J44.9 - CHRONIC OBSTRUCTIVE PULMONARY DISEASE, UNSPECIFIED Qualifiers: COPD type: unspecified COPD Qualified Code(s): J44.9 - Chronic obstructive pulmonary disease, unspecified (2) Acute on chronic diastolic (congestive) heart failure Code(s): I50.33 - ACUTE ON CHRONIC DIASTOLIC (CONGESTIVE) HEART FAILURE (3) Anemia Code(s): D64.9 - ANEMIA, UNSPECIFIED Qualifiers: Anemia type: unspecified type Qualified Code(s): D64.9 - Anemia, unspecified (4) Atrial fibrillation Code(s): I48.91 - UNSPECIFIED ATRIAL FIBRILLATION Qualifiers: Atrial fibrillation type: chronic Qualified Code(s): I48.2 - Chronic atrial fibrillation (5) Elevated INR Code(s): R79.1 - ABNORMAL COAGULATION PROFILE (6) HTN (hypertension) Code(s): I10 - ESSENTIAL (PRIMARY) HYPERTENSION Qualifiers: Hypertension type: essential hypertension Qualified Code(s): I10 - Essential (primary) hypertension (7) Hx of CABG Code(s): Z95.1 - PRESENCE OF AORTOCORONARY BYPASS GRAFT (8) Hyperlipidemia Code(s): E78.5 - HYPERLIPIDEMIA, UNSPECIFIED Qualifiers: Hyperlipidemia type: pure hypercholesterolemia Qualified Code(s): E78.00 - Pure hypercholesterolemia, unspecified; E78.0 - Pure hypercholesterolemia (9) Pulmonary hypertension Code(s): I27.2 - OTHER SECONDARY PULMONARY HYPERTENSION * DO NOT USE * (10) [id number]-[id number] kidney injury Code(s): N17.9 - ACUTE KIDNEY FAILURE, UNSPECIFIED; N18.9 - CHRONIC KIDNEY DISEASE, UNSPECIFIED Qualifiers: Chronic kidney disease stage: stage 2 (mild) Assessment/Plan 10/26/2016 Echo: Normal LV size and fxn, mod-severe TR RVSP 56 mmHg 11/07/2016 P-Myoview: No ischemia, LVEF 72% 1. Acute on chronic LV diastolic failure with mod-severe TR 2. CAD s/p CABG and LUIS EDUARDO LAD, angina pectoris 3. Persistent AFib with slow ventricular response [id number] on warfarin with supratherapeutic INR 4. HTN/HCVD 5. HLD, 6. C diff, perforated colon post partial colectomy 7. COPD 8. Anemia 9. Acute on CKD referable to #1 P:1. Diuresis held with monitor diuretic response, renal fxn and electrolytes 2. Continue losartan 25 qd, Ranexa 500 bid, dose Coumadin per INR, Crestor 5 qd , may need to hold losartan if Cr continues to rise 3. BD, oral steroid taper, empiric abx, O2 as needed 4. F/u repeat echocardiogram to assess ventricular and valve fxn
--- NOTE | 2018-01-10 12:30 | PN ---
Progress Note, Physician Chief Complaint: Mr Aleman says he is doing well today. SOB improved and walking around. Coughing improved. No cp or n/v. - Current Medication List Current Medications: Active Medications Albuterol/Ipratropium (Duoneb -) 1 amp NEB RQID [facility] Last Admin: 01/10/18 11:09 Dose: 1 amp Allopurinol (Zyloprim -) 150 mg PO DAILY [facility] Last Admin: 01/10/18 09:35 Dose: 150 mg Ascorbic Acid (Vitamin C -) 500 mg PO DAILY [facility] Last Admin: 01/10/18 09:35 Dose: 500 mg Cholecalciferol (Vitamin D3 -) 400 unit PO DAILY [facility] Last Admin: 01/10/18 09:36 Dose: 400 unit Azithromycin 250 mg/ Dextrose 250 mls @ 250 mls/hr IVPB HS [facility] Last Admin: 01/09/18 22:59 Dose: 250 mls/hr Lactobacillus Acidophilus (Bacid -) 1 tab PO DAILY [facility] Last Admin: 01/10/18 09:34 Dose: 1 tab Losartan Potassium (Cozaar -) 25 mg PO DAILY [facility] Last Admin: 01/10/18 09:37 Dose: 25 mg Multivitamins/Minerals/Vitamin C (Tab-A-Vit -) 1 tab PO DAILY [facility] Last Admin: 01/10/18 09:35 Dose: 1 tab Prednisone (Deltasone -) 60 mg PO DAILY [facility] Last Admin: 01/10/18 09:34 Dose: 60 mg Ranolazine (Ranexa -) 500 mg PO BID [facility] Last Admin: 01/10/18 09:35 Dose: 500 mg Rosuvastatin Calcium (Crestor -) 5 mg PO WEFR [facility] Last Admin: 01/09/18 10:28 Dose: 5 mg - Objective Vital Signs: Vital Signs Temperature 36.8 C 01/10/18 09:22 Pulse Rate 94 H 01/10/18 09:22 Respiratory Rate 18 01/10/18 10:00 Blood Pressure 100/58 01/10/18 09:22 O2 Sat by Pulse Oximetry (%) 97 01/10/18 10:00 Constitutional: Yes: Well Nourished, No Distress, Calm Cardiovascular: Yes: Regular Rate and Rhythm. No: Gallop, Murmur, Rub Respiratory: Yes: Regular, Rhonchi. No: CTA Bilaterally, On Nasal O2, Rales, Wheezes Gastrointestinal: Yes: Normal Bowel Sounds, Soft. No: Distention, Tenderness Extremities: Yes: WNL Edema: No Labs: CBC, BMP 01/10/18 08:14 01/10/18 08:14 INR, PTT INR 3.14 (0.82-1.09) H 01/10/18 08:14 Problem List - Problems (1) Acute on chronic diastolic (congestive) heart failure Code(s): I50.33 - ACUTE ON CHRONIC DIASTOLIC (CONGESTIVE) HEART FAILURE (2) COPD (chronic obstructive pulmonary disease) Code(s): J44.9 - CHRONIC OBSTRUCTIVE PULMONARY DISEASE, UNSPECIFIED Qualifiers: COPD type: unspecified COPD Qualified Code(s): J44.9 - Chronic obstructive pulmonary disease, unspecified (3) Atrial fibrillation Code(s): I48.91 - UNSPECIFIED ATRIAL FIBRILLATION Qualifiers: Atrial fibrillation type: chronic Qualified Code(s): I48.2 - Chronic atrial fibrillation (4) CAD (coronary artery disease) Code(s): I25.10 - ATHSCL HEART DISEASE OF [place] CORONARY ARTERY W/O ANG PCTRS Qualifiers: Coronary Disease-Associated Artery/Lesion type: [place] artery [place] vs. transplanted heart: [place] heart Associated angina: without angina Qualified Code(s): I25.10 - Atherosclerotic heart disease of [place] coronary artery without angina pectoris (5) Elevated INR Code(s): R79.1 - ABNORMAL COAGULATION PROFILE (6) HTN (hypertension) Code(s): I10 - ESSENTIAL (PRIMARY) HYPERTENSION Qualifiers: Hypertension type: essential hypertension Qualified Code(s): I10 - Essential (primary) hypertension (7) Hyperlipidemia Code(s): E78.5 - HYPERLIPIDEMIA, UNSPECIFIED Qualifiers: Hyperlipidemia type: pure hypercholesterolemia Qualified Code(s): E78.00 - Pure hypercholesterolemia, unspecified; E78.0 - Pure hypercholesterolemia Assessment/Plan (1) Acute on chronic diastolic (congestive) heart failure Assessment/Plan: -appreciate cardiology assistance -improved -stop lasix secondary to ANGELA -continue losartan Code(s): I50.33 - ACUTE ON CHRONIC DIASTOLIC (CONGESTIVE) HEART FAILURE (2) COPD (chronic obstructive pulmonary disease) Assessment/Plan: -seen on chest x-ray -continue bronchodilators -continue zithromax day 2 -continue prednisone for short course Code(s): J44.9 - CHRONIC OBSTRUCTIVE PULMONARY DISEASE, UNSPECIFIED (3) Atrial fibrillation Assessment/Plan: -sounded in sinus rhythm on exam -rate controlled -supratherapeutic INR, hold coumadin Code(s): I48.91 - UNSPECIFIED ATRIAL FIBRILLATION Qualifiers: Atrial fibrillation type: chronic Qualified Code(s): I48.2 - Chronic atrial fibrillation (4) CAD (coronary artery disease) Assessment/Plan: -quiescent -cardiology following -continue home regimen Code(s): I25.10 - ATHSCL HEART DISEASE OF [place] CORONARY ARTERY W/O ANG PCTRS Qualifiers: Coronary Disease-Associated Artery/Lesion type: [place] artery [place] vs. transplanted heart: [place] heart Associated angina: without angina Qualified Code(s): I25.10 - Atherosclerotic heart disease of [place] coronary artery without angina pectoris (5) Elevated INR Assessment/Plan: -hold coumadin -recheck INR in am Code(s): R79.1 - ABNORMAL COAGULATION PROFILE (6) HTN (hypertension) Assessment/Plan: -well controlled -continue current management Code(s): I10 - ESSENTIAL (PRIMARY) HYPERTENSION Qualifiers: Hypertension type: essential hypertension Qualified Code(s): I10 - Essential (primary) hypertension (7) Hyperlipidemia Assessment/Plan: -continue crestor Code(s): E78.5 - HYPERLIPIDEMIA, UNSPECIFIED Qualifiers: Hyperlipidemia type: pure hypercholesterolemia (8) ANGELA -secondary to IV lasix -encouraged oral fluid intake -hold lasix -recheck in am
[2018-01-10] MEDS ORDERED: PT OWN MED DRAWER 7, Y5N ONE (22:18)
[2018-01-10] MEDS: AZITHROMYCIN IVPB 250 MG in DEXTROSE 5%-WATER - 250 ML IVPB SCH (22:24)
[2018-01-11] MEDS: ALBUTEROL SO4 2.5/IPRATROPIUM 0.5 INH SOL 3 ML VIAL.NEB. NEB SCH ×2 (07:35→11:11)
[2018-01-11 08:01] LABS: BASO % 0.1 % (0-2.0); HEMATOCRIT 27.1 % (35.4-49); HEMOGLOBIN 9.4 GM/dL (11.7-16.9); LYMPH % 8.5 % (8-40); MCH 32.2 pg (25.7-33.7); MCHC 34.7 g/dl (32.0-35.9); MEAN CELL VOLUME 92.8 fl (80-96); MONO % 7.4 % (3.8-10.2); PLATELET COUNT 142 K/MM3 (134-434); RBC 2.92 M/mm3 (4.00-5.60); RDW 15.7 % (11.9-15.9)
[2018-01-11 08:14] LABS: INR 2.94 (0.82-1.09); PROTHROMBIN TIME (PATIENT) 33.2 SEC (9.98-11.88)
[2018-01-11 08:38] LABS: CHLORIDE 100 mmol/L (98-107); POTASSIUM 3.7 mmol/L (3.5-5.1); SODIUM 134 mmol/L (136-145)
[2018-01-11 08:50] LABS: ANION GAP 8 (8-16); BLOOD UREA NITROGEN 58 mg/dL (7-18); CALCIUM 7.9 mg/dL (8.5-10.1); CO2 26 mmol/L (21-32); CREATININE 1.8 mg/dL (0.7-1.3); GLUCOSE,RANDOM 125 mg/dL (74-106); MAGNESIUM 2.1 mg/dL (1.8-2.4); PHOSPHOROUS 3.6 mg/dL (2.5-4.9)
[2018-01-11] MEDS: CHOLECALCIFEROL (VITAMIN D3) 400 UNIT TABLET (FP) PO SCH (09:50)
[2018-01-11] MEDS: ALLOPURINOL 100 MG TABLET (FP) PO SCH (09:50)
[2018-01-11] MEDS: predniSONE 20 MG TABLET (UD) PO SCH (09:51)
[2018-01-11] MEDS: LACTOBACILLUS ACIDOPHILUS 1 CAP PO SCH (09:51)
[2018-01-11] MEDS: MULTIVITAMINS (DAILY MVI) TABLET (FP) PO SCH (09:51)
[2018-01-11] MEDS: ASCORBIC ACID 500 MG TABLET (FP) PO SCH (09:51)
[2018-01-11] MEDS: LOSARTAN POTASSIUM 50 MG TABLET (FP) PO SCH (09:51)
[2018-01-11] MEDS: RANOLAZINE E.R. 500 MG TABLET (FP) PO SCH (09:51)
--- NOTE | 2018-01-11 10:00 | PN ---
Progress Note, Physician History of Present Illness: SOB with exertion and orthopnea improved with diuresis, but Cr increased and diuretics held. - Current Medication List Current Medications: Active Medications Albuterol/Ipratropium (Duoneb -) 1 amp NEB RQID [facility] Last Admin: 01/11/18 07:35 Dose: 1 amp Allopurinol (Zyloprim -) 150 mg PO DAILY [facility] Last Admin: 01/11/18 09:50 Dose: 150 mg Ascorbic Acid (Vitamin C -) 500 mg PO DAILY [facility] Last Admin: 01/11/18 09:51 Dose: 500 mg Cholecalciferol (Vitamin D3 -) 400 unit PO DAILY [facility] Last Admin: 01/11/18 09:50 Dose: 400 unit Azithromycin 250 mg/ Dextrose 250 mls @ 250 mls/hr IVPB HS [facility] Last Admin: 01/10/18 22:24 Dose: 250 mls/hr Lactobacillus Acidophilus (Bacid -) 1 tab PO DAILY [facility] Last Admin: 01/11/18 09:51 Dose: 1 tab Losartan Potassium (Cozaar -) 25 mg PO DAILY [facility] Last Admin: 01/11/18 09:51 Dose: 25 mg Multivitamins/Minerals/Vitamin C (Tab-A-Vit -) 1 tab PO DAILY [facility] Last Admin: 01/11/18 09:51 Dose: 1 tab Prednisone (Deltasone -) 60 mg PO DAILY [facility] Last Admin: 01/11/18 09:51 Dose: 60 mg Ranolazine (Ranexa -) 500 mg PO BID [facility] Last Admin: 01/11/18 09:51 Dose: 500 mg Rosuvastatin Calcium (Crestor -) 5 mg PO WEFR [facility] Last Admin: 01/09/18 10:28 Dose: 5 mg - Objective Vital Signs: Vital Signs Temperature 97.6 F 01/11/18 06:00 Pulse Rate 61 01/11/18 06:00 Respiratory Rate 18 01/11/18 06:00 Blood Pressure 103/69 01/11/18 06:00 O2 Sat by Pulse Oximetry (%) 96 01/10/18 21:00 Constitutional: Yes: No Distress, Calm, Thin Neck: Yes: Supple Cardiovascular: Yes: Pulse Irregular, Murmur (2/6 SM) Respiratory: Yes: Regular, Diminished Gastrointestinal: Yes: Normal Bowel Sounds, Soft Edema: No Labs: CBC, BMP 01/11/18 06:30 01/11/18 06:30 INR, PTT INR 2.94 (0.82-1.09) H 01/11/18 06:30 - ....Imaging EKG: Report Reviewed (Tele: Afib rate-controlled) Problem List - Problems (1) COPD (chronic obstructive pulmonary disease) Code(s): J44.9 - CHRONIC OBSTRUCTIVE PULMONARY DISEASE, UNSPECIFIED Qualifiers: COPD type: unspecified COPD Qualified Code(s): J44.9 - Chronic obstructive pulmonary disease, unspecified (2) Acute on chronic diastolic (congestive) heart failure Code(s): I50.33 - ACUTE ON CHRONIC DIASTOLIC (CONGESTIVE) HEART FAILURE (3) Anemia Code(s): D64.9 - ANEMIA, UNSPECIFIED Qualifiers: Anemia type: unspecified type Qualified Code(s): D64.9 - Anemia, unspecified (4) Atrial fibrillation Code(s): I48.91 - UNSPECIFIED ATRIAL FIBRILLATION Qualifiers: Atrial fibrillation type: chronic Qualified Code(s): I48.2 - Chronic atrial fibrillation (5) Elevated INR Code(s): R79.1 - ABNORMAL COAGULATION PROFILE (6) HTN (hypertension) Code(s): I10 - ESSENTIAL (PRIMARY) HYPERTENSION Qualifiers: Hypertension type: essential hypertension Qualified Code(s): I10 - Essential (primary) hypertension (7) Hx of CABG Code(s): Z95.1 - PRESENCE OF AORTOCORONARY BYPASS GRAFT (8) Hyperlipidemia Code(s): E78.5 - HYPERLIPIDEMIA, UNSPECIFIED Qualifiers: Hyperlipidemia type: pure hypercholesterolemia Qualified Code(s): E78.00 - Pure hypercholesterolemia, unspecified; E78.0 - Pure hypercholesterolemia (9) Pulmonary hypertension Code(s): I27.2 - OTHER SECONDARY PULMONARY HYPERTENSION * DO NOT USE * (10) [id number]-[id number] kidney injury Code(s): N17.9 - ACUTE KIDNEY FAILURE, UNSPECIFIED; N18.9 - CHRONIC KIDNEY DISEASE, UNSPECIFIED Qualifiers: Chronic kidney disease stage: stage 2 (mild) Assessment/Plan 10/26/2016 Echo: Normal LV size and fxn, mod-severe TR RVSP 56 mmHg 11/07/2016 P-Myoview: No ischemia, LVEF 72% 01/10/2018 Echo: Normal LV size with low normal LV fxn, severe AUTUMN, mod-severe TR, mild-mod MR 1. Acute on chronic LV diastolic failure with mod-severe TR 2. CAD s/p CABG and LUIS EDUARDO LAD, angina pectoris 3. Persistent AFib with slow ventricular response [id number] on warfarin with therapeutic INR 4. HTN/HCVD 5. HLD, 6. C diff, perforated colon post partial colectomy 7. COPD 8. Anemia 9. Acute on CKD improving P:1. Diuresis held with monitor diuretic response, renal fxn and electrolytes 2. Continue losartan 25 qd, Ranexa 500 bid, resume Coumadin per INR, Crestor 5 qd, may need to hold losartan if Cr continues to rise 3. BD, oral steroid taper, empiric abx, O2 as needed, d/c planning
[2018-01-11 10:01] VITALS: BP 122/57; PULSE 62; TEMP 98.4
[2018-01-11] MEDS: ROSUVASTATIN CA 5 MG TABLET (FP) PO SCH (11:22)
--- NOTE | 2018-01-11 11:51 | DS ---
Physical Examination Vital Signs: Vital Signs Temperature 36.9 C 01/11/18 09:58 Pulse Rate 62 01/11/18 09:58 Respiratory Rate 18 01/11/18 09:58 Blood Pressure 122/57 01/11/18 09:58 O2 Sat by Pulse Oximetry (%) 96 01/11/18 09:58 Labs: CBC, BMP 01/11/18 06:30 01/11/18 06:30 Discharge Summary Reason For Visit: CONGESTIVE HEART FAILURE Current Active Problems Ctktx-pg-[id number] kidney injury (Acute) COPD (chronic obstructive pulmonary disease) (Acute) Congestive heart failure (Acute) Condition: Good - Instructions Diet, Activity, Other Instructions: resume previous diet and activity. Referrals: Ryan Matos MD [Staff Physician] - Jose A Ruth MD [Staff Physician] - Disposition: HOME - Home Medications Comprehensive Discharge Medication List: Ambulatory Orders Allopurinol [Zyloprim -] 150 mg PO DAILY 03/22/12 Losartan Potassium [Cozaar -] 25 mg PO DAILY 03/22/12 Ranolazine [Ranexa -] 500 mg PO BID 03/22/12 Rosuvastatin Calcium [Crestor] 5 mg PO WEFR 03/22/12 Warfarin Na [Coumadin -] 3 mg PO DAILY 03/22/12 Ascorbate Calcium [Vitamin C] 500 mg PO DAILY 09/04/16 Cholecalciferol (Vitamin D3) [Vitamin D -] 400 unit PO DAILY 09/04/16 L.acidoph,Paracasei, B.lactis [Probiotic] 1 each PO DAILY 09/04/16 Multivitamin [Poly-Vitamin] 1 each PO DAILY 09/04/16 Furosemide [Lasix -] 40 mg PO DAILY tablet 09/08/16 Spironolactone [Aldactone -] 25 mg PO DAILY #30 tablet 09/08/16 Albuterol Sulfate Inhaler - [Ventolin HFA Inhaler -] 1 - 2 inh PO Q4H PRN #1 inhaler 01/11/18 predniSONE [Deltasone -] 5 mg PO ASDIR #32 tab 01/11/18
[2018-01-11] MEDS ORDERED: WARFARIN NA 3 MG TABLET PO SCH (18:00)
== END 2018-01-11 13:22 | disposition home or self-care (01) | DRG 291 ==
LOC: JER 15:00 → JERBED 21:49 → J4S 01-09 20:00 → OBSVTOIN 01-10 12:32
PROVIDERS: ADMIT Internal Medicine; ATTEND Internal Medicine
DX: I13.0 Hypertensive heart and chronic kidney disease with heart failure and stage 1 through stage 4 chronic kidney disease, or unspecified chronic kidney disease (principal); I50.33 Acute on chronic diastolic (congestive) heart failure; I48.1 Persistent atrial fibrillation; N17.9 Acute kidney failure, unspecified; I48.91 Unspecified atrial fibrillation; Z95.1 Presence of aortocoronary bypass graft; Z87.891 Personal history of nicotine dependence; I25.10 Atherosclerotic heart disease of native coronary artery without angina pectoris; E78.5 Hyperlipidemia, unspecified; Z79.01 Long term (current) use of anticoagulants; J20.9 Acute bronchitis, unspecified; J44.9 Chronic obstructive pulmonary disease, unspecified; R79.1 Abnormal coagulation profile; D64.9 Anemia, unspecified; I27.20 Pulmonary hypertension, unspecified; N18.9 Chronic kidney disease, unspecified; I36.1 Nonrheumatic tricuspid (valve) insufficiency
CPT/HCPCS: 36415; 71045-TC-FY; 71046-TC-FY; 80048; 80053; 81003; 81015; 82550; 82553; 83605; 83735; 83880; 84100; 84484; 85025; 85610; 87040; 87086; 87804; 93005; 93010; 93306-TC; 94640; 99281-25; 99285-25; G0378

== ENCOUNTER 2018-03-13 06:14 | Inpatient (IN) | payer OTHER, MEDICARE ==
[2018-03-12 15:00] VITALS: BMI 25.7
[2018-03-13] MEDS ORDERED: PROPOFOL 20 ML ONE (07:34)
[2018-03-13] MEDS ORDERED: ACETAMINOPHEN 1000 MG/100 ML VIAL (NON FORMULARY) IVPB ONE ×2 (07:40→08:46)
--- NOTE | 2018-03-13 07:40 | HP ---
History & Physical Update - History History: Change (see notes) (bladder stone) - Physical Physical: No Change - Assessment Assessment: No Change - Plan Plan: No Change
[2018-03-13] MEDS ORDERED: ceFAZolin SODIUM 1 GM VIAL IVPB ONE (07:50)
[2018-03-13] MEDS ORDERED: ceFAZolin SODIUM 1 GM VIAL ONE (07:51)
[2018-03-13] MEDS ORDERED: ePHEDrine SULFATE 50 MG/1 ML AMPULE ONE (07:53)
[2018-03-13] MEDS ORDERED: DEXAMETHASONE SOD PHOSPHATE 4 MG/1 ML VIAL ONE (08:02)
[2018-03-13] MEDS ORDERED: ACETAMINOPHEN 325 MG TABLET (FP) PO PRN (08:33)
[2018-03-13] MEDS ORDERED: ONDANSETRON 4 MG/2 ML VIAL IVPUSH PRN (08:33)
[2018-03-13] MEDS ORDERED: ACETAMINOPHEN INJECTION 100 ML IVPB ONE (08:43)
--- NOTE | 2018-03-13 13:24 | EKG ---
Test Reason : Blood Pressure : / mmHG Vent. Rate : 061 BPM Atrial Rate : 030 BPM P-R Int : 000 ms QRS Dur : 106 ms QT Int : 492 ms P-R-T Axes : 000 088 044 degrees QTc Int : 495 ms JUNCTIONAL RHYTHM WITH FREQUENT PREMATURE VENTRICULAR COMPLEXES PROLONGED QT ABNORMAL ECG WHEN COMPARED WITH ECG OF 08-JAN-2018 19:11, PREMATURE VENTRICULAR COMPLEXES ARE NOW PRESENT Confirmed by CARRILLO BASHIR, JA ([id number]) on 03/13/2018 1:24:11 PM Referred By: Ryan Jesus Confirmed By:JA VIZCAINO MD
[2018-03-13] MEDS: DEXTROSE 5%-0.45% SALINE 1,000 ML IV SCH (22:26)
[2018-03-13] MEDS: IBUPROFEN 800 MG/8 ML IJ IVPB SCH (23:25)
[2018-03-14] MEDS: DEXTROSE 5%-0.45% SALINE 1,000 ML IV SCH (06:05)
[2018-03-14 08:10] LABS: BASO % 0.2 % (0-2.0); EOS % 0.1 % (0-4.5); HEMATOCRIT 25.3 % (35.4-49); HEMOGLOBIN 8.7 GM/dL (11.7-16.9); LYMPH % 9.4 % (8-40); MCH 32.9 pg (25.7-33.7); MCHC 34.2 g/dl (32.0-35.9); MEAN CELL VOLUME 96.2 fl (80-96); MEAN PLT VOLUME 8.3 fl (7.5-11.1); MONO % 10.3 % (3.8-10.2); PLATELET COUNT 116 K/MM3 (134-434); RBC 2.63 M/mm3 (4.00-5.60); RDW 16.7 % (11.9-15.9); WHITE BLOOD COUNT 8.5 K/mm3 (4.0-10.0)
[2018-03-14 08:18] LABS: CHLORIDE 102 mmol/L (98-107); POTASSIUM 4.3 mmol/L (3.5-5.1); SODIUM 135 mmol/L (136-145)
[2018-03-14] MEDS: IBUPROFEN 800 MG/8 ML IJ IVPB SCH ×2 (08:30→09:21)
[2018-03-14 08:34] LABS: BLOOD UREA NITROGEN 34 mg/dL (7-18)
[2018-03-14 08:40] VITALS: BP 120/42; PULSE 61; TEMP 98.8
[2018-03-14 08:50] LABS: ANION GAP 10 (8-16); CALCIUM 7.9 mg/dL (8.5-10.1); CO2 23 mmol/L (21-32); CREATININE 1.8 mg/dL (0.7-1.3); GLUCOSE,RANDOM 171 mg/dL (74-106)
--- NOTE | 2018-03-14 17:18 | PATH ---
Surgical Pathology Report Patient Name: MALIA ALANIS Med. Rec. #: [id number] /Age/Gender: 1930 (Age: 87) / M Account: [id number] Location: [address] [place] [address]/[facility] Taken: 03/13/2018 Received: 03/13/2018 Reported: 03/14/2018 Physicians: Ryan Jesus M.D. Specimen(s) Received BLADDER CALCULI Clinical History Calculus in bladder Final Diagnosis BLADDER STONE, CYSTOSCOPY AND LASER LITHOTRIPSY: BLADDER CALCULI. MACROSCOPIC DIAGNOSIS. Electronically Signed Aundrea Barreto M.D. Gross Description Received fresh labeled "bladder stone," is a 2.5 x 1.6 x 0.5 cm aggregate of lehman-brown, irregular to fragmented calculi which are sent for chemical analysis. /03/13/2018 [place]/03/13/2018
[2018-03-20 14:18] LABS: CA OXALATE MONOHYDR. 80 % (.); URIC ACID 15 % (.)
== END 2018-03-14 12:21 | disposition home or self-care (01) | DRG 694 ==
LOC: JASUSAT 06:14 → JASU-SURG 06:14 → JSAMEDAYSX 16:25 → J6S 18:00
PROVIDERS: ADMIT Urology; ATTEND Urology
PROC: 0TCB8ZZ Extirpation of Matter from Bladder, Via Natural or Artificial Opening Endoscopic (ICD-10-PCS; principal; 2018-03-13 07:30)
DX: N21.0 Calculus in bladder (principal); I25.810 Atherosclerosis of coronary artery bypass graft(s) without angina pectoris; Z95.1 Presence of aortocoronary bypass graft; Z96.649 Presence of unspecified artificial hip joint; I48.91 Unspecified atrial fibrillation; I50.9 Heart failure, unspecified; J44.9 Chronic obstructive pulmonary disease, unspecified
CPT/HCPCS: 36415; 80048; 82360; 85025; 88300-TC; 93005; 93010; 94760; J0131

== ENCOUNTER 2018-03-18 09:26 | Inpatient (IN) | payer OTHER, MEDICARE ==
--- NOTE | 2018-03-18 09:39 | PDOC ---
History of Present Illness - General Chief Complaint: Injury Stated Complaint: FALL (HIP PAIN) Time Seen by Provider: 03/18/18 09:38 - History of Present Illness Initial Comments: 03/18/18 10:01 Mr. Aleman is an 87 yo male w/ pmh of CAD, Afib (on coumadin), CHF, HTN, bilateral hip replacement, and HLD who presents s/p mechanical fall last night when he attempted to stand up from chair and tripped over his feet. He describes falling on his left side; denies any head trauma or LOC. Presents for evaluation as he continues to have pain today. The patient denies chest pain, shortness of breath, headache and dizziness. Denies fever, chills, nausea, vomit, diarrhea and constipation. Denies dysuria, frequency, urgency and hematuria. Allergies: NKDA Past History - Past Medical History Allergies/Adverse Reactions: Allergies Allergy/AdvReac Type Severity Reaction Status Date / Time No Known Allergies Allergy Verified 03/18/18 09:38 Home Medications: Ambulatory Orders Ranolazine [Ranexa -] 500 mg PO BID 03/22/12 Rosuvastatin Calcium [Crestor] 5 mg PO WEFR 03/22/12 L.acidoph,Paracasei, B.lactis [Probiotic] 1 each PO DAILY 09/04/16 Multivitamin [Poly-Vitamin] 1 each PO DAILY 09/04/16 Furosemide [Lasix -] 40 mg PO DAILY 03/12/18 Losartan Potassium [Cozaar] 25 mg PO DAILY 03/12/18 Potassium Chloride [K-Dur -] 20 meq PO DAILY 03/12/18 Warfarin Sodium [Coumadin] 3 mg PO DAILY 03/12/18 Ascorbic Acid [Vitamin C] 1,000 mg PO DAILY 03/13/18 Cholecalciferol (Vitamin D3) [Vitamin D3 -] 2,000 unit PO DAILY 03/13/18 Vit A/Vit C/Vit E/Zinc/Copper [Preservision Tablet] 1 each PO DAILY 03/13/18 Metoprolol Succinate [Toprol Xl] 12.5 mg PO DAILY 03/18/18 Spironolactone 25 mg PO DAILY 03/18/18 Anemia: No Asthma: No Cancer: No Cardiac Disorders: Yes (CABG,CARDIAC STENT,ATRIAL FIBRILLATION) CVA: No COPD: No CHF: Yes Dementia: No Diabetes: No GI Disorders: Yes (C-DIFF, HX OF PERFORATED COLON AFTER HIP SURGERY) Disorders: No (NEPHROLITHIASIS) HTN: Yes Hypercholesterolemia: Yes Liver Disease: No Seizures: No Thyroid Disease: No - Surgical History Abdominal Surgery: Yes (12/2011 hemicolectomy for perforated cecum) Appendectomy: Yes Cardiac Surgery: Yes (2 VESSEL CABG,CARDIAC STENT) Cholecystectomy: No Lung Surgery: No Neurologic Surgery: No Orthopedic Surgery: Yes (orif rt forearm; lt hip replacement 10 yrs ago; rt hip 2011) - Suicide/Smoking/Psychosocial Hx Smoking History: Former smoker Have you smoked in the past 12 months: No Number of Cigarettes Smoked Daily: 0 If you are a former smoker, when did you quit?: 1972 Hx Alcohol Use: Yes (SOCIAL) Drug/Substance Use Hx: No Substance Use Type: Alcohol Hx Substance Use Treatment: No Review of Systems - Review of Systems Comments:: 03/18/18 10:05 GENERAL/CONSTITUTIONAL: No fever or chills. No weakness. HEAD, EYES, EARS, NOSE AND THROAT: No change in vision. No ear pain or discharge. No sore throat. CARDIOVASCULAR: No chest pain or shortness of breath RESPIRATORY: No cough, wheezing, or hemoptysis. GASTROINTESTINAL: No nausea, vomiting, diarrhea or constipation. GENITOURINARY: No dysuria, frequency, or change in urination. MUSCULOSKELETAL: +Left sided leg pain. No neck or back pain. SKIN: No rash NEUROLOGIC: No headache, vertigo, loss of consciousness, or change in strength/ sensation. ENDOCRINE: No increased thirst. No abnormal weight change HEMATOLOGIC/LYMPHATIC: No anemia, easy bleeding, or history of blood clots. ALLERGIC/IMMUNOLOGIC: No hives or skin allergy. *Physical Exam - Physical Exam Comments: 03/18/18 10:05 GENERAL: Awake, alert, and fully oriented, in no acute distress HEAD: No signs of trauma, normocephalic, atraumatic EYES: PERRLA, EOMI, sclera anicteric, conjunctiva clear ENT: Auricles normal inspection, hearing grossly normal, nares patent, oropharynx clear without exudates. Moist mucosa NECK: Normal ROM, supple, no lymphadenopathy, JVD, or masses LUNGS: No distress, speaks full sentences, clear to auscultation bilaterally HEART: Regular rate and rhythm, normal S1 and S2, no murmurs, rubs or gallops, peripheral pulses normal and equal bilaterally. ABDOMEN: Soft, nontender, normoactive bowel sounds. No guarding, no rebound. No masses EXTREMITIES: +Left hip TTP. Normal inspection, Normal range of motion, no edema. No clubbing or cyanosis. NEUROLOGICAL: Cranial nerves II through XII grossly intact. Normal speech, normal gait, no focal sensorimotor deficits SKIN: Warm, Dry, normal turgor, no rashes or lesions noted. ED Treatment Course - LABORATORY CBC & Chemistry Diagram: 03/18/18 12:35 03/18/18 12:35 Medical Decision Making - Medical Decision Making 03/18/18 13:15 Mr. Aleman is an 87 yo male w/ pmh as described who presents for evaluation s/p fall. X-ray significant for possible acute on chronic changes; patient remains unable to ambulate. Admitting patient for orthopedic follow-up and possible placement as needed. 03/18/18 17:01 Patient requested alternate orthopedist after admission so Dr. Reynold lopes for follow-up. *DC/Admit/Observation/Transfer Diagnosis at time of Disposition: Unable to ambulate Fall Qualifiers: Encounter type: initial encounter Qualified Code(s): W19.XXXA - Unspecified fall, initial encounter - Discharge Dispostion Decision to Admit order: Yes - Referrals - Patient Instructions - Post Discharge Activity
[2018-03-18] MEDS ORDERED: ACETAMINOPHEN 500 MG TABLET (FP) PO ONE ×2 (09:59→10:04)
[2018-03-18] MEDS ORDERED: ACETAMINOPHEN 325 MG TABLET (FP) ONE (10:04)
--- NOTE | 2018-03-18 10:06 | PDOC ---
Attending Attestation - Medical Decision Making 03/18/18 1:17pm Call placed to Dr. Mills, orthopedics application engineer, case was discussed with resident. <Wilmar Erwin - Last Filed: 03/18/18 13:17> - Resident Resident Name: Jack Pate - ED Attending Attestation I have performed the following: I have examined & evaluated the patient, The case was reviewed & discussed with the resident, I agree w/resident's findings & plan, Exceptions are as noted - HPI HPI: 03/18/18 10:02 87 yo M c/ pmh atrial fibrillation on coumadin p/w mechanical fall. Pt was getting up and turned to the side. Lost balance and fell on left hip. Absolutely denies hitting head or LOC. Has hx of bilateral hip replacements. Normally walks with a cane. States now ambulating hurts his left leg. Denies numbness, weakness. - Physicial Exam PE: 03/18/18 10:04 GENERAL: Awake, alert, and fully oriented, in no acute distress. HEAD: No signs of trauma EYES: PERRLA, EOMI, sclera anicteric, conjunctiva clear ENT: Auricles normal inspection, hearing grossly normal, nares patent NECK: Normal ROM, supple. PELVIS: FROM of left hip but with pain. 2+ DP pulse LLE. No gross abnormality. TTP left lateral hip. Sensation intact throughout. EXTREMITIES: Normal range of motion, no edema. No clubbing or cyanosis. No cords, erythema, or tenderness NEUROLOGICAL: Cranial nerves II through XII grossly intact. Normal speech SKIN: Warm, Dry, normal turgor, no rashes or lesions noted. - Medical Decision Making 03/18/18 10:06 Vital Signs Temp Pulse Resp BP Pulse Ox 97.7 F 75 22 157/72 98 03/18/18 09:38 03/18/18 09:38 03/18/18 09:38 03/18/18 09:38 03/18/18 09:38 R/o left hip fracture. Pelvis and hip xray. Pain control and reassess. 03/18/18 13:15 Pt unable to ambulate. I had discussed radiographs with radiologist. Though has components with likely chronic fractures, will treat as acute fracture, given severe pain and inability to ambulate. Will consult Mario and admit. <Adriano Chen - Last Filed: 03/18/18 14:00> Heart Score/ECG Review #1 ECG reviewed & interpreted by me at: 14:00 03/18/18 14:00 NSR 63, no std/nico, normal axis, normal intervals, occasional PVC, TWI III, T wave flat avF, QTC 423 msec <Adriano Chen - Last Filed: 03/18/18 14:00> Attestations - Attestations 03/18/18 13:18 Documentation prepared by Wilmar Erwin, acting as medical billing assistant for Adriano Chen MD. <Wilmar Erwin - Last Filed: 03/18/18 13:17>
[2018-03-18 13:13] LABS: BASO % 0.8 % (0-2.0); EOS % 1.2 % (0-4.5); HEMATOCRIT 26.4 % (35.4-49); HEMOGLOBIN 8.9 GM/dL (11.7-16.9); LYMPH % 16.2 % (8-40); MCH 32.3 pg (25.7-33.7); MCHC 33.6 g/dl (32.0-35.9); MEAN CELL VOLUME 96.1 fl (80-96); MEAN PLT VOLUME 7.9 fl (7.5-11.1); MONO % 11.8 % (3.8-10.2); PLATELET COUNT 149 K/MM3 (134-434); RBC 2.74 M/mm3 (4.00-5.60); RDW 16.5 % (11.9-15.9)
[2018-03-18 13:26] LABS: INR 1.3 (0.82-1.09); PROTHROMBIN TIME (PATIENT) 14.7 SEC (9.7-13.0)
[2018-03-18 13:36] LABS: ALBUMIN 3.4 g/dl (3.4-5.0); ANION GAP 8 (8-16); BILIRUBIN,TOTAL 0.8 mg/dL (0.2-1.0); BLOOD UREA NITROGEN 29 mg/dL (7-18); CALCIUM 8.7 mg/dL (8.5-10.1); CHLORIDE 108 mmol/L (98-107); CO2 24 mmol/L (21-32); CREATININE 1.2 mg/dL (0.7-1.3); GLUCOSE,RANDOM 96 mg/dL (74-106); POTASSIUM 4.7 mmol/L (3.5-5.1); SGOT/AST 34 U/L (15-37); SGPT/ALT 25 U/L (12-78); SODIUM 140 mmol/L (136-145); TOT PROT 6.6 g/dl (6.4-8.2)
[2018-03-18 13:37] LABS: ALK PHOS 98 U/L (45-117)
--- NOTE | 2018-03-18 16:52 | HP ---
Admitting History and Physical - Primary Care Physician PCP: Ryan Matos - Admission Chief Complaint: fall History of Present Illness: is an 87 year old male who comes in from home s/p mechanical fall. He reports as he was getting up, he tripped over the chair, fell, and landed on his left side. He denies any head trauma, loss of consciousness, lightheadedness or feeling as he was going to pass out. He reports he was unable to get up s/p fall and required help to do so. Otherwise, he denies any further symptoms. He denies any chest pain, sob, n/v/d, rash, fever/chills, recent travel, recent medication changes, headaches, unilateral weakness. History Source: Patient, Family Member Limitations to Obtaining History: No Limitations - Past Medical History Cardiovascular: Yes: AFIB, CAD, CHF, HTN, Hyperlipdemia Renal/: Yes: Renal Inusuff Musculoskeletal: Yes: Other (spinal stenosis) - Past Surgical History Past Surgical History: Yes: CABG, Colectomy, Hernia Repair, Joint Replacement (b /l hip replacement ORIF right arm), Stent - Smoking History Smoking history: Former smoker Have you smoked in the past 12 months: No Aproximately how many cigarettes per day: 0 If you are a former smoker, when did you quit?: 1971 - Alcohol/Substance Use Hx Alcohol Use: Yes (SOCIAL) History of Substance Use: reports: None - Social History ADL: Independent History of Recent Travel: No Home Medications - Allergies Allergies/Adverse Reactions: Allergies Allergy/AdvReac Type Severity Reaction Status Date / Time No Known Allergies Allergy Verified 03/18/18 09:38 - Home Medications Home Medications: Ambulatory Orders Ranolazine [Ranexa -] 500 mg PO BID 03/22/12 Rosuvastatin Calcium [Crestor] 5 mg PO WEFR 03/22/12 L.acidoph,Paracasei, B.lactis [Probiotic] 1 each PO DAILY 09/04/16 Multivitamin [Poly-Vitamin] 1 each PO DAILY 09/04/16 Furosemide [Lasix -] 20 mg PO DAILY 03/12/18 Losartan Potassium [Cozaar] 25 mg PO DAILY 03/12/18 Potassium Chloride [K-Dur -] 20 meq PO DAILY 03/12/18 Warfarin Sodium [Coumadin] 3 mg PO DAILY 03/12/18 Ascorbic Acid [Vitamin C] 1,000 mg PO DAILY 03/13/18 Cholecalciferol (Vitamin D3) [Vitamin D3 -] 2,000 unit PO DAILY 03/13/18 Vit A/Vit C/Vit E/Zinc/Copper [Preservision Tablet] 1 each PO DAILY 03/13/18 Ferrous Sulfate 325 mg PO DAILY 03/18/18 Metoprolol Succinate [Toprol Xl] 12.5 mg PO DAILY 03/18/18 Spironolactone 25 mg PO DAILY 03/18/18 Family Disease History - Family Disease History Family Disease History: Heart Disease: Mother, Brother, Other: Father Review of Systems Findings/Remarks: as per hpi Physical Examination Vital Signs: Vital Signs Temperature 97.7 F 03/18/18 09:38 Pulse Rate 56 L 03/18/18 15:05 Respiratory Rate 20 03/18/18 15:05 Blood Pressure 129/60 03/18/18 15:05 O2 Sat by Pulse Oximetry (%) 96 03/18/18 15:11 Constitutional: Yes: Well Nourished, No Distress, Calm Cardiovascular: Yes: WNL, Regular Rate and Rhythm Respiratory: Yes: WNL, Regular, CTA Bilaterally. No: Accessory Muscle Use, SOB , Tachypnea, Wheezes Gastrointestinal: Yes: WNL, Normal Bowel Sounds, Soft. No: Distention, Tenderness Renal/: Yes: WNL Extremities: Yes: WNL (LLE, pain with movement) Edema: Yes Edema: LLE: 1+, RLE: 1+ Neurological: Yes: WNL, Alert, Oriented ...Motor Strength: WNL Psychiatric: Yes: WNL, Alert, Oriented Labs: CBC, BMP 03/18/18 12:35 03/18/18 12:35 Imaging - Results X-ray: Report Reviewed Cat Scan: Report Reviewed Problem List - Problems (1) Fall Assessment/Plan: mechanical, w/out head trauma non-displaced hip fracture ortho consult pending PT eval ordered Code(s): W19.XXXA - UNSPECIFIED FALL, INITIAL ENCOUNTER Qualifiers: Encounter type: initial encounter Qualified Code(s): W19.XXXA - Unspecified fall, initial encounter (2) Nondisplaced fracture of greater trochanter of left femur Assessment/Plan: ortho consult pending Code(s): S72.115A - NONDISP FX OF GREATER TROCHANTER OF LEFT FEMUR, INIT Qualifiers: Encounter type: initial encounter Fracture type: closed Qualified Code(s) : S72.115A - Nondisplaced fracture of greater trochanter of left femur, initial encounter for closed fracture (3) Impaired ambulation Assessment/Plan: as above Code(s): R26.2 - DIFFICULTY IN WALKING, NOT ELSEWHERE CLASSIFIED (4) Atrial fibrillation Assessment/Plan: Persistent AFib with slow ventricular response continue coumadin INR sub therapeutic here followed by outpt Code(s): I48.91 - UNSPECIFIED ATRIAL FIBRILLATION Qualifiers: Atrial fibrillation type: chronic Qualified Code(s): I48.2 - Chronic atrial fibrillation (5) CAD (coronary artery disease) Assessment/Plan: s/p CABG and LUIS EDUARDO LAD continue statin/ bb Code(s): I25.10 - ATHSCL HEART DISEASE OF [place] CORONARY ARTERY W/O ANG PCTRS Qualifiers: Coronary Disease-Associated Artery/Lesion type: [place] artery [place] vs. transplanted heart: [place] heart Associated angina: without angina Qualified Code(s): I25.10 - Atherosclerotic heart disease of [place] coronary artery without angina pectoris (6) Congestive heart failure Assessment/Plan: not in acute exacerbation 01/10/2018 Echo: Normal LV size with low normal LV fxn, severe AUTUMN, mod-severe TR, mild-mod MR continue spironolactone Code(s): I50.9 - HEART FAILURE, UNSPECIFIED Qualifiers: Heart failure type: diastolic Heart failure chronicity: chronic Qualified Code(s): I50.32 - Chronic diastolic (congestive) heart failure (7) HTN (hypertension) Assessment/Plan: controlled continue cozaar/metoprolol Code(s): I10 - ESSENTIAL (PRIMARY) HYPERTENSION Qualifiers: Hypertension type: essential hypertension Qualified Code(s): I10 - Essential (primary) hypertension (8) Hyperlipidemia Assessment/Plan: controlled continue crestor Code(s): E78.5 - HYPERLIPIDEMIA, UNSPECIFIED Qualifiers: Hyperlipidemia type: pure hypercholesterolemia Qualified Code(s): E78.00 - Pure hypercholesterolemia, unspecified; E78.0 - Pure hypercholesterolemia (9) Chronic anemia Assessment/Plan: stable continue po iron Code(s): D64.9 - ANEMIA, UNSPECIFIED (10) CKD (chronic kidney disease) Assessment/Plan: chronic, mild will monitor Code(s): N18.9 - CHRONIC KIDNEY DISEASE, UNSPECIFIED Qualifiers: Chronic kidney disease stage: stage 2 (mild) Qualified Code(s): N18.2 - Chronic kidney disease, stage 2 (mild) (11) COPD (chronic obstructive pulmonary disease) Assessment/Plan: stable Code(s): J44.9 - CHRONIC OBSTRUCTIVE PULMONARY DISEASE, UNSPECIFIED Qualifiers: COPD type: unspecified COPD Qualified Code(s): J44.9 - Chronic obstructive pulmonary disease, unspecified (12) Hx of CABG Code(s): Z95.1 - PRESENCE OF AORTOCORONARY BYPASS GRAFT
[2018-03-18 17:35] VITALS: BMI 26.6
--- NOTE | 2018-03-18 17:46 | CONSULT ---
Consult - text type - Consultation Consultation Note: FAMILY REQUESTS THAT DR SHARMA DO THE CONSULT.
[2018-03-18] MEDS ORDERED: ACETAMINOPHEN 325 MG TABLET (FP) PO PRN (18:14)
[2018-03-18] MEDS: RANOLAZINE E.R. 500 MG TABLET (FP) PO SCH (21:39)
[2018-03-18] MEDS: WARFARIN NA 3 MG TABLET PO SCH (22:27)
[2018-03-19 07:26] LABS: BASO % 0.8 % (0-2.0); EOS % 1.4 % (0-4.5); HEMOGLOBIN 8.8 GM/dL (11.7-16.9); MCH 32.5 pg (25.7-33.7); MCHC 33.8 g/dl (32.0-35.9); MEAN CELL VOLUME 96.1 fl (80-96); MEAN PLT VOLUME 8.1 fl (7.5-11.1); MONO % 11.8 % (3.8-10.2); PLATELET COUNT 132 K/MM3 (134-434); RDW 16.4 % (11.9-15.9); WHITE BLOOD COUNT 5.5 K/mm3 (4.0-10.0)
[2018-03-19 07:51] LABS: INR 1.35 (0.82-1.09); PROTHROMBIN TIME (PATIENT) 15.3 SEC (9.7-13.0)
[2018-03-19 08:36] LABS: ANION GAP 12 (8-16); BLOOD UREA NITROGEN 28 mg/dL (7-18); CALCIUM 8.4 mg/dL (8.5-10.1); CHLORIDE 109 mmol/L (98-107); CO2 21 mmol/L (21-32); CREATININE 1.2 mg/dL (0.7-1.3); GLUCOSE,RANDOM 92 mg/dL (74-106); PHOSPHOROUS 3.4 mg/dL (2.5-4.9); POTASSIUM 4.5 mmol/L (3.5-5.1); SODIUM 142 mmol/L (136-145)
[2018-03-19] MEDS: LOSARTAN POTASSIUM 25 MG TABLET PO SCH (09:33)
[2018-03-19] MEDS: FERROUS SO4 325 MG TABLET (FP) PO SCH (09:33)
[2018-03-19] MEDS: CHOLECALCIFEROL (VITAMIN D3) 1,000 UNIT TABLET (FP) PO SCH (09:33)
[2018-03-19] MEDS: SPIRONOLACTONE 25 MG TABLET (FP) PO SCH (09:34)
[2018-03-19] MEDS: ASCORBIC ACID 500 MG TABLET (FP) PO SCH (09:34)
[2018-03-19] MEDS: MULTIVITAMINS (DAILY MVI) TABLET (FP) PO SCH (09:34)
[2018-03-19] MEDS: metoPROLOL SUCCINATE 25 MG TAB.SR.24H (FP) PO SCH (09:34)
[2018-03-19] MEDS: RANOLAZINE E.R. 500 MG TABLET (FP) PO SCH ×2 (09:34→21:02)
[2018-03-19] MEDS ORDERED: PATIENT'S OWN MEDICATION (NON-FORMULARY) (Ferrous Sulfate [Ferrous Sulfate] 325 MG) PO SCH (10:00)
[2018-03-19] MEDS ORDERED: POTASSIUM CHLORIDE TABS 20 MEQ TABLET.ER (FP) PO SCH (10:00)
--- NOTE | 2018-03-19 10:02 | CONSULT ---
Consult - text type - Consultation Consultation Note: Orthopedics Consult received, records reviewed. I will see the patient this afternoon. Imaging studies reviewed and compared to earlier studies in PACS. There appears to be a new nondisplaced fracture of the greater trochanter. The hip prosthesis doesn't appear to be loose. The overall plan will be nonoperative. Can start physical therapy with [facility]. I will see the patient today.
--- NOTE | 2018-03-19 11:03 | PN ---
Progress Note (short form) - Note Progress Note: Dr. Shaw to document today. Fell at home and injured left hip. Insists no head injury and does not want CT head. His INR is low because Coumadin held due to recent bladder stone procedure and hematuria which has improved. Await visit Dr. Anna Re: final decision on surgery.
--- NOTE | 2018-03-19 13:24 | EKG ---
Test Reason : Blood Pressure : / mmHG Vent. Rate : 063 BPM Atrial Rate : 063 BPM P-R Int : 080 ms QRS Dur : 090 ms QT Int : 414 ms P-R-T Axes : 000 044 214 degrees QTc Int : 423 ms JUNCTIONAL RHYTHM vs atrial fibrillation. Frequent PVCs. MARKED ST ABNORMALITY, POSSIBLE INFEROLATERAL SUBENDOCARDIAL INJURY ABNORMAL ECG WHEN COMPARED WITH ECG OF 13-MAR-2018 09:22, ST NOW DEPRESSED IN INFERIOR LEADS INVERTED T WAVES HAVE REPLACED NONSPECIFIC T WAVE ABNORMALITY IN INFERIOR LEADS REPEAT EKG IF CLINICALLY INDICATED Confirmed by MD ROBERTA, ROBBIE ([id number]) on 03/19/2018 1:24:29 PM Referred By: Confirmed By:ROBBIE GRANADOS MD
--- NOTE | 2018-03-19 13:36 | PN ---
Progress Note (short form) - Note Progress Note: 87 year old male BIBA s/p mechanical fall. He reports as he was getting up, he tripped over the edge of a rug, fell, and landed on his left side. He denies any head trauma, loss of consciousness, syncope. He reports he was unable to get up s/p fall and required help to do so from neighbor who helped him to bed. Otherwise, he denies any further symptoms. He denies any chest pain, sob, n/v/d , rash, fever/chills, recent travel, recent medication changes, headaches, unilateral weakness. Hx of bilateral hip replacements many years ago. Denies having pain after fall. Was able to get up with PT and ambulate with a walker today, albeit with pain. Pt seen and examined. Comfortable in bed. Past Medical History Cardio/Vascular AFIB,CAD,CHF,HTN,Hyperlipdemia Renal/ Renal Inusuff Past Surgical History Past Surgical History CABG (b/l hip replacement ORIF right arm), Colectomy,Hernia Repair,Joint Replacement,Stent AVSS Selected Entries 03/19/18 05:58 Temperature 98.6 F Pulse Rate 53 L Respiratory 20 Rate Blood Pressure 117/54 Laboratory Tests 03/19/18 03/19/18 03/19/18 06:00 06:00 06:00 WBC 5.5 Hgb 8.8 L Hct 26.0 L Plt Count 132 L PT with INR 15.30 H INR 1.35 H Sodium 142 Potassium 4.5 Chloride 109 H Carbon Dioxide 21 Anion Gap 12 BUN 28 H Creatinine 1.2 Random Glucose 92 Calcium 8.4 L Phosphorus 3.4 Magnesium 2.0 Gen: NAD, AAO LLE: skin intact, no cuts/abrasions. Swelling + severe TTP over lateral side of hip in trochanteric region. No TTP over thigh distally. (+) lateral pain with log roll. Unable to maintain straight leg raise. NVID CT/XR reviewed and compared to older studies in PACS. There appears to be a new fracture line in the greater trochanter that is nondisplaced. There is also an old fracture which was present several years ago and only partially healed as well as extensive heterotopic ossification. The hip prosthesis appears to be cemented in place and there is no evidence of loosening or hardware failure. A/P 87yo male s/p mechanical fall with Left greater trochanter fracture, intact hip replacement Findings and imaging were discussed with the patient. Will not require surgery. Has started PT already - [facility] LLE Pain control - this can be a very painful injury. Will need d/c to SNF. F/U in 2 weeks as an outpatient for followup imaging. Call for appt [phone]
--- NOTE | 2018-03-19 16:04 | PN ---
Progress Note, Physician Chief Complaint: Mr Aleman complains of pain in his leg, made worse with ambulation. No cp, sob, n /v. - Current Medication List Current Medications: Active Medications Acetaminophen (Tylenol -) 650 mg PO Q6H PRN PRN Reason: PAIN LEVEL 1-5 Ascorbic Acid (Vitamin C -) 1,000 mg PO DAILY [facility] Last Admin: 03/19/18 09:34 Dose: 1,000 mg Cholecalciferol (Vitamin D3 -) 2,000 unit PO DAILY [facility] Last Admin: 03/19/18 09:33 Dose: 2,000 unit Ferrous Sulfate (Feosol -) 325 mg PO DAILY [facility] Last Admin: 03/19/18 09:33 Dose: 325 mg Losartan Potassium (Cozaar -) 25 mg PO DAILY [facility] Last Admin: 03/19/18 09:33 Dose: 25 mg Metoprolol Succinate (Toprol Xl -) 12.5 mg PO DAILY [facility] Last Admin: 03/19/18 09:34 Dose: 12.5 mg Multivitamins/Minerals/Vitamin C (Tab-A-Vit -) 1 tab PO DAILY [facility] Last Admin: 03/19/18 09:34 Dose: 1 tab Oxycodone HCl (Roxicodone -) 2.5 mg PO Q6H PRN PRN Reason: PAIN LEVEL 6-10 Ranolazine (Ranexa -) 500 mg PO BID [facility] Last Admin: 03/19/18 09:34 Dose: 500 mg Rosuvastatin Calcium (Crestor -) 5 mg PO WeFr@2200 [facility] Spironolactone (Aldactone -) 25 mg PO DAILY [facility] Last Admin: 03/19/18 09:34 Dose: 25 mg Warfarin Sodium (Coumadin -) 3 mg PO DAILY@1800 [facility] Last Admin: 03/18/18 22:27 Dose: 3 mg - Objective Vital Signs: Vital Signs Temperature 36.7 C 03/19/18 14:36 Pulse Rate 63 03/19/18 14:36 Respiratory Rate 20 03/19/18 14:36 Blood Pressure 122/64 03/19/18 14:36 O2 Sat by Pulse Oximetry (%) 96 03/18/18 21:00 Constitutional: Yes: Well Nourished, No Distress, Calm Cardiovascular: Yes: Pulse Irregular. No: Tachycardia, Gallop, Murmur, Rub Respiratory: Yes: Regular, CTA Bilaterally. No: Rales, Rhonchi, Wheezes Gastrointestinal: Yes: Normal Bowel Sounds, Soft. No: Distention, Tenderness Extremities: Yes: WNL Edema: No Labs: CBC, BMP 03/19/18 06:00 03/19/18 06:00 INR, PTT INR 1.35 (0.82-1.09) H 03/19/18 06:00 Problem List - Problems (1) Nondisplaced fracture of greater trochanter of left femur Assessment/Plan: -appreciate ortho assistance and PT evaluation -non-surgical -however very painful -will continue PT and pain control -patient unsafe discharge home, will need SNF for rehab Code(s): S72.115A - NONDISP FX OF GREATER TROCHANTER OF LEFT FEMUR, INIT Qualifiers: Encounter type: initial encounter Fracture type: closed Qualified Code(s) : S72.115A - Nondisplaced fracture of greater trochanter of left femur, initial encounter for closed fracture (2) CKD (chronic kidney disease) Assessment/Plan: -stable -monitor Code(s): N18.9 - CHRONIC KIDNEY DISEASE, UNSPECIFIED Qualifiers: Chronic kidney disease stage: stage 2 (mild) Qualified Code(s): N18.2 - Chronic kidney disease, stage 2 (mild) (3) Chronic anemia Assessment/Plan: -slightly lower than baseline -not requiring transfusion -continue iron supplementation Code(s): D64.9 - ANEMIA, UNSPECIFIED (4) Atrial fibrillation Assessment/Plan: -rate controlled -continue toprol xl and coumadin -currently subtherapeutic secondary to being held as an outpatient Code(s): I48.91 - UNSPECIFIED ATRIAL FIBRILLATION Qualifiers: Atrial fibrillation type: chronic Qualified Code(s): I48.2 - Chronic atrial fibrillation (5) CAD (coronary artery disease) Assessment/Plan: -quiescent -baseline Code(s): I25.10 - ATHSCL HEART DISEASE OF [place] CORONARY ARTERY W/O ANG PCTRS Qualifiers: Coronary Disease-Associated Artery/Lesion type: [place] artery [place] vs. transplanted heart: [place] heart Associated angina: without angina Qualified Code(s): I25.10 - Atherosclerotic heart disease of [place] coronary artery without angina pectoris (6) Congestive heart failure Assessment/Plan: -continue aldactone, toprol xl, and cozaar -not in exacerbation Code(s): I50.9 - HEART FAILURE, UNSPECIFIED Qualifiers: Heart failure type: diastolic Heart failure chronicity: chronic Qualified Code(s): I50.32 - Chronic diastolic (congestive) heart failure (7) HTN (hypertension) Assessment/Plan: -well controlled -continue current regimen Code(s): I10 - ESSENTIAL (PRIMARY) HYPERTENSION Qualifiers: Hypertension type: essential hypertension Qualified Code(s): I10 - Essential (primary) hypertension (8) Hyperlipidemia Assessment/Plan: -continue crestor Code(s): E78.5 - HYPERLIPIDEMIA, UNSPECIFIED Qualifiers: Hyperlipidemia type: pure hypercholesterolemia Qualified Code(s): E78.00 - Pure hypercholesterolemia, unspecified; E78.0 - Pure hypercholesterolemia
[2018-03-19] MEDS: WARFARIN NA 3 MG TABLET PO SCH (17:54)
[2018-03-20] MEDS: oxyCODONE HCL 5 MG TABLET PO PRN (01:00)
[2018-03-20 07:55] LABS: HEMATOCRIT 25.5 % (35.4-49); HEMOGLOBIN 8.7 GM/dL (11.7-16.9); MCH 32.9 pg (25.7-33.7); MCHC 34.3 g/dl (32.0-35.9); PLATELET COUNT 137 K/MM3 (134-434); RBC 2.66 M/mm3 (4.00-5.60); RDW 16.5 % (11.9-15.9); WHITE BLOOD COUNT 6.6 K/mm3 (4.0-10.0)
[2018-03-20 08:22] LABS: INR 1.54 (0.82-1.09); PROTHROMBIN TIME (PATIENT) 17.4 SEC (9.7-13.0)
--- NOTE | 2018-03-20 09:00 | PN ---
Progress Note (short form) - Note Progress Note: Dr. Shaw to document today. ? SNF rehab
[2018-03-20] MEDS: RANOLAZINE E.R. 500 MG TABLET (FP) PO SCH ×2 (10:01→21:49)
[2018-03-20] MEDS: MULTIVITAMINS (DAILY MVI) TABLET (FP) PO SCH (10:01)
[2018-03-20] MEDS: FERROUS SO4 325 MG TABLET (FP) PO SCH (10:01)
[2018-03-20] MEDS: CHOLECALCIFEROL (VITAMIN D3) 1,000 UNIT TABLET (FP) PO SCH (10:01)
[2018-03-20] MEDS: ASCORBIC ACID 500 MG TABLET (FP) PO SCH (10:02)
[2018-03-20] MEDS: SPIRONOLACTONE 25 MG TABLET (FP) PO SCH (10:02)
[2018-03-20] MEDS: LOSARTAN POTASSIUM 25 MG TABLET PO SCH (10:02)
[2018-03-20] MEDS: metoPROLOL SUCCINATE 25 MG TAB.SR.24H (FP) PO SCH (10:02)
--- NOTE | 2018-03-20 11:33 | PN ---
Progress Note, Physician Chief Complaint: pt lying in bed in no acute distress. denies pain. reports pain w/ movement. otherwise, pt doing well. denies chest pain, sob, n/v/d - Current Medication List Current Medications: Active Medications Acetaminophen (Tylenol -) 650 mg PO Q6H PRN PRN Reason: PAIN LEVEL 1-5 Last Admin: 03/20/18 01:00 Dose: 650 mg Ascorbic Acid (Vitamin C -) 1,000 mg PO DAILY [facility] Last Admin: 03/20/18 10:02 Dose: 1,000 mg Cholecalciferol (Vitamin D3 -) 2,000 unit PO DAILY [facility] Last Admin: 03/20/18 10:01 Dose: 2,000 unit Ferrous Sulfate (Feosol -) 325 mg PO DAILY [facility] Last Admin: 03/20/18 10:01 Dose: 325 mg Losartan Potassium (Cozaar -) 25 mg PO DAILY [facility] Last Admin: 03/20/18 10:02 Dose: Not Given Metoprolol Succinate (Toprol Xl -) 12.5 mg PO DAILY [facility] Last Admin: 03/20/18 10:02 Dose: Not Given Multivitamins/Minerals/Vitamin C (Tab-A-Vit -) 1 tab PO DAILY [facility] Last Admin: 03/20/18 10:01 Dose: 1 tab Oxycodone HCl (Roxicodone -) 2.5 mg PO Q6H PRN PRN Reason: PAIN LEVEL 6-10 Last Admin: 03/20/18 01:00 Dose: 2.5 mg Ranolazine (Ranexa -) 500 mg PO BID [facility] Last Admin: 03/20/18 10:01 Dose: 500 mg Rosuvastatin Calcium (Crestor -) 5 mg PO WeFr@2200 [facility] Spironolactone (Aldactone -) 25 mg PO DAILY [facility] Last Admin: 03/20/18 10:02 Dose: Not Given Warfarin Sodium (Coumadin -) 3 mg PO DAILY@1800 [facility] Last Admin: 03/19/18 17:54 Dose: 3 mg - Objective Vital Signs: Vital Signs Temperature 98.6 F 03/20/18 09:00 Pulse Rate 57 L 03/20/18 09:00 Respiratory Rate 20 03/20/18 09:00 Blood Pressure 118/56 03/20/18 09:00 O2 Sat by Pulse Oximetry (%) 98 03/20/18 09:00 Labs: CBC, BMP 03/20/18 06:30 03/19/18 06:00 INR, PTT INR 1.54 (0.82-1.09) H 03/20/18 06:30 Problem List - Problems (1) Fall Code(s): W19.XXXA - UNSPECIFIED FALL, INITIAL ENCOUNTER Qualifiers: Encounter type: initial encounter Qualified Code(s): W19.XXXA - Unspecified fall, initial encounter (2) Nondisplaced fracture of greater trochanter of left femur Code(s): S72.115A - NONDISP FX OF GREATER TROCHANTER OF LEFT FEMUR, INIT Qualifiers: Encounter type: initial encounter Fracture type: closed Qualified Code(s) : S72.115A - Nondisplaced fracture of greater trochanter of left femur, initial encounter for closed fracture (3) Impaired ambulation Code(s): R26.2 - DIFFICULTY IN WALKING, NOT ELSEWHERE CLASSIFIED (4) Atrial fibrillation Code(s): I48.91 - UNSPECIFIED ATRIAL FIBRILLATION Qualifiers: Atrial fibrillation type: chronic Qualified Code(s): I48.2 - Chronic atrial fibrillation (5) CAD (coronary artery disease) Code(s): I25.10 - ATHSCL HEART DISEASE OF [place] CORONARY ARTERY W/O ANG PCTRS Qualifiers: Coronary Disease-Associated Artery/Lesion type: [place] artery [place] vs. transplanted heart: [place] heart Associated angina: without angina Qualified Code(s): I25.10 - Atherosclerotic heart disease of [place] coronary artery without angina pectoris (6) Congestive heart failure Code(s): I50.9 - HEART FAILURE, UNSPECIFIED Qualifiers: Heart failure type: diastolic Heart failure chronicity: chronic Qualified Code(s): I50.32 - Chronic diastolic (congestive) heart failure (7) HTN (hypertension) Code(s): I10 - ESSENTIAL (PRIMARY) HYPERTENSION Qualifiers: Hypertension type: essential hypertension Qualified Code(s): I10 - Essential (primary) hypertension (8) Hyperlipidemia Code(s): E78.5 - HYPERLIPIDEMIA, UNSPECIFIED Qualifiers: Hyperlipidemia type: pure hypercholesterolemia Qualified Code(s): E78.00 - Pure hypercholesterolemia, unspecified; E78.0 - Pure hypercholesterolemia (9) Chronic anemia Code(s): D64.9 - ANEMIA, UNSPECIFIED (10) CKD (chronic kidney disease) Code(s): N18.9 - CHRONIC KIDNEY DISEASE, UNSPECIFIED Qualifiers: Chronic kidney disease stage: stage 2 (mild) Qualified Code(s): N18.2 - Chronic kidney disease, stage 2 (mild) (11) COPD (chronic obstructive pulmonary disease) Code(s): J44.9 - CHRONIC OBSTRUCTIVE PULMONARY DISEASE, UNSPECIFIED Qualifiers: COPD type: unspecified COPD Qualified Code(s): J44.9 - Chronic obstructive pulmonary disease, unspecified (12) Hx of CABG Code(s): Z95.1 - PRESENCE OF AORTOCORONARY BYPASS GRAFT Assessment/Plan (1) Fall Assessment/Plan: mechanical, w/out head trauma non-displaced L hip fracture ortho consult appreciated Code(s): W19.XXXA - UNSPECIFIED FALL, INITIAL ENCOUNTER Qualifiers: Encounter type: initial encounter Qualified Code(s): W19.XXXA - Unspecified fall, initial encounter (2) Nondisplaced fracture of greater trochanter of left femur Assessment/Plan: ortho evaluated, no surgery needed PT- WBAT tylenol/roxicodone prn unsafe d/c home, awaiting SNF placement Code(s): S72.115A - NONDISP FX OF GREATER TROCHANTER OF LEFT FEMUR, INIT Qualifiers: Encounter type: initial encounter Fracture type: closed Qualified Code(s) : S72.115A - Nondisplaced fracture of greater trochanter of left femur, initial encounter for closed fracture (3) Impaired ambulation Assessment/Plan: as above Code(s): R26.2 - DIFFICULTY IN WALKING, NOT ELSEWHERE CLASSIFIED (4) Atrial fibrillation Assessment/Plan: Persistent AFib with slow ventricular response continue coumadin INR sub therapeutic here followed by outpt Code(s): I48.91 - UNSPECIFIED ATRIAL FIBRILLATION Qualifiers: Atrial fibrillation type: chronic Qualified Code(s): I48.2 - Chronic atrial fibrillation (5) CAD (coronary artery disease) Assessment/Plan: s/p CABG and LUIS EDUARDO LAD continue statin/ bb Code(s): I25.10 - ATHSCL HEART DISEASE OF [place] CORONARY ARTERY W/O ANG PCTRS Qualifiers: Coronary Disease-Associated Artery/Lesion type: [place] artery [place] vs. transplanted heart: [place] heart Associated angina: without angina Qualified Code(s): I25.10 - Atherosclerotic heart disease of [place] coronary artery without angina pectoris (6) Congestive heart failure Assessment/Plan: not in acute exacerbation 01/10/2018 Echo: Normal LV size with low normal LV fxn, severe AUTUMN, mod-severe TR, mild-mod MR continue spironolactone Code(s): I50.9 - HEART FAILURE, UNSPECIFIED Qualifiers: Heart failure type: diastolic Heart failure chronicity: chronic Qualified Code(s): I50.32 - Chronic diastolic (congestive) heart failure (7) HTN (hypertension) Assessment/Plan: controlled continue cozaar/metoprolol Code(s): I10 - ESSENTIAL (PRIMARY) HYPERTENSION Qualifiers: Hypertension type: essential hypertension Qualified Code(s): I10 - Essential (primary) hypertension (8) Hyperlipidemia Assessment/Plan: controlled continue crestor Code(s): E78.5 - HYPERLIPIDEMIA, UNSPECIFIED Qualifiers: Hyperlipidemia type: pure hypercholesterolemia Qualified Code(s): E78.00 - Pure hypercholesterolemia, unspecified; E78.0 - Pure hypercholesterolemia (9) Chronic anemia Assessment/Plan: stable continue po iron Code(s): D64.9 - ANEMIA, UNSPECIFIED (10) CKD (chronic kidney disease) Assessment/Plan: chronic, mild will monitor Code(s): N18.9 - CHRONIC KIDNEY DISEASE, UNSPECIFIED Qualifiers: Chronic kidney disease stage: stage 2 (mild) Qualified Code(s): N18.2 - Chronic kidney disease, stage 2 (mild) (11) COPD (chronic obstructive pulmonary disease) Assessment/Plan: stable Code(s): J44.9 - CHRONIC OBSTRUCTIVE PULMONARY DISEASE, UNSPECIFIED Qualifiers: COPD type: unspecified COPD Qualified Code(s): J44.9 - Chronic obstructive pulmonary disease, unspecified (12) Hx of CABG Code(s): Z95.1 - PRESENCE OF AORTOCORONARY BYPASS GRAFT
[2018-03-20 13:23] LABS: URINE APPEARANCE SLCLOUDY; URINE BILIRUBIN NEGATIVE (<2.0 mg/dL); URINE BLOOD 1+ (NEGATIVE); URINE COLOR YELLOW; URINE GLUCOSE (UA) NEGATIVE (NEGATIVE); URINE KETONE NEGATIVE (NEGATIVE); URINE NITRITE NEGATIVE (NEGATIVE); URINE UROBILINOGEN NEGATIVE mg/dL (0.2-1.0)
[2018-03-20 13:27] LABS: URINE LEUK ESTERASE 1+ (NEGATIVE); URINE PROTEIN 2+ (NEGATIVE)
[2018-03-20 13:31] LABS: EPI CELLS RARE /HPF (FEW); URINE HYALINE CAST 1 /lpf; URINE MUCUS RARE
[2018-03-20] MEDS: WARFARIN NA 3 MG TABLET PO SCH (17:49)
[2018-03-20] MEDS ORDERED: ROSUVASTATIN CA 5 MG TABLET (FP) PO SCH (22:00)
[2018-03-21 07:41] LABS: BASO % 0.4 % (0-2.0); EOS % 0.7 % (0-4.5); HEMATOCRIT 27.5 % (35.4-49); HEMOGLOBIN 9.3 GM/dL (11.7-16.9); LYMPH % 9.5 % (8-40); MCH 32.7 pg (25.7-33.7); MCHC 33.9 g/dl (32.0-35.9); MEAN CELL VOLUME 96.3 fl (80-96); MONO % 11.4 % (3.8-10.2); PLATELET COUNT 142 K/MM3 (134-434); RBC 2.86 M/mm3 (4.00-5.60); RDW 16.4 % (11.9-15.9); WHITE BLOOD COUNT 8.6 K/mm3 (4.0-10.0)
--- NOTE | 2018-03-21 08:22 | PN ---
Progress Note (short form) - Note Progress Note: Dr. Shaw/SAHIL Oneil to document today. Needs SNF. Rec: INR twice a week in SNF
[2018-03-21 08:31] LABS: INR 2.66 (0.82-1.09); PROTHROMBIN TIME (PATIENT) 30.1 SEC (9.7-13.0)
[2018-03-21] MEDS: oxyCODONE HCL 5 MG TABLET PO PRN (08:46)
[2018-03-21 09:40] VITALS: BP 115/57; PULSE 62; TEMP 98.4
[2018-03-21] MEDS: LOSARTAN POTASSIUM 25 MG TABLET PO SCH (10:01)
[2018-03-21] MEDS: CHOLECALCIFEROL (VITAMIN D3) 1,000 UNIT TABLET (FP) PO SCH (10:02)
[2018-03-21] MEDS: MULTIVITAMINS (DAILY MVI) TABLET (FP) PO SCH (10:02)
[2018-03-21] MEDS: metoPROLOL SUCCINATE 25 MG TAB.SR.24H (FP) PO SCH (10:02)
[2018-03-21] MEDS: FERROUS SO4 325 MG TABLET (FP) PO SCH (10:02)
[2018-03-21] MEDS: ASCORBIC ACID 500 MG TABLET (FP) PO SCH (10:02)
[2018-03-21] MEDS: SPIRONOLACTONE 25 MG TABLET (FP) PO SCH (10:02)
[2018-03-21] MEDS: RANOLAZINE E.R. 500 MG TABLET (FP) PO SCH (10:02)
--- NOTE | 2018-03-21 10:09 | DS ---
Physical Examination Vital Signs: Vital Signs Temperature 98.4 F 03/21/18 09:39 Pulse Rate 62 03/21/18 09:39 Respiratory Rate 20 03/21/18 09:39 Blood Pressure 115/57 03/21/18 09:39 O2 Sat by Pulse Oximetry (%) 96 03/20/18 20:50 Constitutional: Yes: Well Nourished, No Distress Cardiovascular: Yes: WNL, Regular Rate and Rhythm Respiratory: Yes: WNL, Regular, CTA Bilaterally. No: Accessory Muscle Use, Tachypnea, Wheezes Gastrointestinal: Yes: WNL, Normal Bowel Sounds, Soft. No: Distention, Tenderness Renal/: Yes: WNL Musculoskeletal: Yes: WNL Extremities: Yes: WNL Edema: Yes Edema: LLE: Trace, RLE: Trace Neurological: Yes: WNL, Alert, Oriented Psychiatric: Yes: WNL, Alert, Oriented Labs: CBC, BMP 03/21/18 06:00 03/19/18 06:00 Discharge Summary Reason For Visit: UNABLE TO WALK; FALL Current Active Problems CKD (chronic kidney disease) (Acute) Chronic anemia (Acute) Fall (Acute) Impaired ambulation (Acute) Unable to ambulate (Acute) Hospital Course: is an 87 year old male who came in from home s/p mechanical fall. Now w / non displaced fracture of left hip. Ortho evaluated pt and no surgery needed. Ortho recommended PT with weight bearing as tolerated. Otherwise, pt is unsafe d /c home. Today pt is medically cleared for discharge to SNF for further rehabilitation. No acute issues. Pt in no acute distress. Vitals stable. Labs unremarkable. He can continue home Coumadin dose. Check PT/INR twice/week. f/u as directed. Condition: Fair - Instructions Diet, Activity, Other Instructions: CHECK INR TWICE/WEEK AT SNF continue coumadin PT- weight bearing as tolerated tylenol/ashlee prn resume prev diet Referrals: Ryan Matos MD [Primary Care Provider] - 1 Week Reynold Anna MD [Staff Physician] - 2 Weeks Disposition: ASSISTED FACILITY - Home Medications Comprehensive Discharge Medication List: Ambulatory Orders Ranolazine [Ranexa -] 500 mg PO BID 03/22/12 Rosuvastatin Calcium [Crestor] 5 mg PO WEFR 03/22/12 L.acidoph,Paracasei, B.lactis [Probiotic] 1 each PO DAILY 09/04/16 Multivitamin [Poly-Vitamin] 1 each PO DAILY 09/04/16 Furosemide [Lasix -] 20 mg PO DAILY 03/12/18 Losartan Potassium [Cozaar] 25 mg PO DAILY 03/12/18 Potassium Chloride [K-Dur -] 20 meq PO DAILY 03/12/18 Warfarin Sodium [Coumadin] 3 mg PO DAILY 03/12/18 Ascorbic Acid [Vitamin C] 1,000 mg PO DAILY 03/13/18 Cholecalciferol (Vitamin D3) [Vitamin D -] 2,000 unit PO DAILY 03/13/18 Vit A/Vit C/Vit E/Zinc/Copper [Preservision Areds Tablet] 1 each PO DAILY Ferrous Sulfate 325 mg PO DAILY 03/18/18 Metoprolol Succinate [Toprol Xl] 12.5 mg PO DAILY 03/18/18 Spironolactone 25 mg PO DAILY 03/18/18 Acetaminophen [Tylenol .Regular Strength -] 650 mg PO Q6H PRN tablet 03/21/18 oxyCODONE HCL [Roxicodone -] 2.5 mg PO Q6H PRN tablet MDD 20 03/21/18
== END 2018-03-21 13:53 | DRG 536 ==
LOC: JER 09:26 → JERBED 13:21 → J7W 16:39 → OBSVTOIN 17:17
PROVIDERS: ADMIT Internal Medicine; ATTEND Internal Medicine
DX: S72.115A Nondisplaced fracture of greater trochanter of left femur, initial encounter for closed fracture (principal); I13.0 Hypertensive heart and chronic kidney disease with heart failure and stage 1 through stage 4 chronic kidney disease, or unspecified chronic kidney disease; I50.32 Chronic diastolic (congestive) heart failure; I25.10 Atherosclerotic heart disease of native coronary artery without angina pectoris; I48.91 Unspecified atrial fibrillation; Z79.01 Long term (current) use of anticoagulants; E78.5 Hyperlipidemia, unspecified; Z87.891 Personal history of nicotine dependence; Z95.1 Presence of aortocoronary bypass graft; D64.9 Anemia, unspecified; J44.9 Chronic obstructive pulmonary disease, unspecified; N18.2 Chronic kidney disease, stage 2 (mild); W01.0XXA Fall on same level from slipping, tripping and stumbling without subsequent striking against object, initial encounter; Y93.89 Activity, other specified; Y92.89 Other specified places as the place of occurrence of the external cause; Y99.8 Other external cause status; I12.9 Hypertensive chronic kidney disease with stage 1 through stage 4 chronic kidney disease, or unspecified chronic kidney disease
CPT/HCPCS: 36415; 73523-TC-FY; 73552-TC-LT-FY; 73700-TC-RT; 80048; 80053; 81003; 81015; 83735; 84100; 85025; 85027; 85610; 85730; 86850; 86900; 86901; 93005; 93010; 97116-GP; 99284-25; G0378

== ENCOUNTER 2018-08-05 14:26 | Inpatient (IN) | payer OTHER, MEDICARE ==
--- NOTE | 2018-08-05 14:38 | PDOC ---
Rapid Medical Evaluation Time Seen by Provider: 08/05/18 14:36 Medical Evaluation: Allergies Allergy/AdvReac Type Severity Reaction Status Date / Time No Known Allergies Allergy Verified 03/18/18 09:38 08/05/18 14:36 I have performed a brief in-person evaluation of this patient. The patient presents with a chief complaint of: Intermittent SOB. H/o HTN, HLD, former smoker, afib on coumadin, CHF, not currently taking lasix, CAD w/ 1 stent Pertinent physical exam findings:stable w/ unremarkable exam I have ordered the following:ekg/cxr/labs The patient will proceed to the ED for further evaluation. Discharge Disposition - Diagnosis SOB (shortness of breath) - Referrals - Patient Instructions - Post Discharge Activity
[2018-08-05 14:40] VITALS: BMI 25.7
[2018-08-05 15:20] LABS: BASO % 0.6 % (0-2.0); HEMATOCRIT 27.9 % (35.4-49); HEMOGLOBIN 9.1 GM/dL (11.7-16.9); LYMPH % 14.7 % (8-40); MCH 31.8 pg (25.7-33.7); MCHC 32.6 g/dl (32.0-35.9); MEAN CELL VOLUME 97.7 fl (80-96); MONO % 8.6 % (3.8-10.2); NEUT % 71.1 % (42.8-82.8); PLATELET COUNT 172 K/MM3 (134-434); RBC 2.86 M/mm3 (4.00-5.60); RDW 16.3 % (11.9-15.9); WHITE BLOOD COUNT 5.1 K/mm3 (4.0-10.0)
[2018-08-05 16:09] LABS: ALBUMIN 3.6 g/dl (3.4-5.0); ALK PHOS 111 U/L (45-117); ANION GAP 7 MMOL/L (8-16); BILIRUBIN,TOTAL 0.5 mg/dL (0.2-1); BLOOD UREA NITROGEN 30 mg/dL (7-18); CALCIUM 8.1 mg/dL (8.5-10.1); CHLORIDE 115 mmol/L (98-107); CO2 22 mmol/L (21-32); CREATININE 1.2 mg/dL (0.55-1.3); GLUCOSE,RANDOM 100 mg/dL (74-106); SGOT/AST 33 U/L (15-37); SGPT/ALT 26 U/L (13-61); SODIUM 143 mmol/L (136-145); TOT PROT 7.1 g/dl (6.4-8.2)
--- NOTE | 2018-08-05 16:35 | PDOC ---
History of Present Illness - General Chief Complaint: Shortness of Breath Stated Complaint: PCP SENT, SOB Time Seen by Provider: 08/05/18 14:36 - History of Present Illness Initial Comments: 08/05/18 16:35 Mr. Aleman is an 88 yo male w/ pmh of CAD (1 stent), afib (on coumadin), CHF, HTN , HLD, bilateral hip replacements, former smoker, who presents on direction of PCP for evaluation of wheezing/dyspnea on exertion for several days. Patient has reportedly not taken his lasix over this time period as well. The patient denies chest pain, headache and dizziness. Denies fever, chills, nausea, vomit, diarrhea and constipation. Denies dysuria, frequency, urgency and hematuria. Allergies: NKDA Past History - Past Medical History Allergies/Adverse Reactions: Allergies Allergy/AdvReac Type Severity Reaction Status Date / Time No Known Allergies Allergy Verified 03/18/18 09:38 Home Medications: Ambulatory Orders Ranolazine [Ranexa -] 500 mg PO BID 03/22/12 Rosuvastatin Calcium [Crestor] 5 mg PO WEFR 03/22/12 L.acidoph,Paracasei, B.lactis [Probiotic] 1 each PO DAILY 09/04/16 Multivitamin [Poly-Vitamin] 1 each PO DAILY 09/04/16 Losartan Potassium [Cozaar] 25 mg PO DAILY 03/12/18 Warfarin Sodium [Coumadin] 3 mg PO DAILY 03/12/18 Ascorbic Acid [Vitamin C] 1,000 mg PO DAILY 03/13/18 Cholecalciferol (Vitamin D3) [Vitamin D -] 2,000 unit PO DAILY 03/13/18 Vit A/Vit C/Vit E/Zinc/Copper [Preservision Areds Tablet] 1 each PO DAILY Ferrous Sulfate 325 mg PO DAILY 03/18/18 Metoprolol Succinate [Toprol Xl] 12.5 mg PO DAILY 03/18/18 Acetaminophen [Tylenol .Regular Strength -] 650 mg PO Q6H PRN tablet 03/21/18 oxyCODONE HCL [Roxicodone -] 2.5 mg PO Q6H PRN tablet MDD 20 03/21/18 Anemia: No Asthma: No Cancer: No Cardiac Disorders: Yes (CABG,CARDIAC STENT,ATRIAL FIBRILLATION) CVA: No COPD: No CHF: Yes Dementia: No Diabetes: No GI Disorders: Yes (C-DIFF, HX OF PERFORATED COLON AFTER HIP SURGERY) Disorders: (NEPHROLITHIASIS) HTN: Yes Hypercholesterolemia: Yes Liver Disease: No Seizures: No Thyroid Disease: No - Surgical History Abdominal Surgery: Yes (12/2011 hemicolectomy for perforated cecum) Appendectomy: Yes Cardiac Surgery: Yes (2 VESSEL CABG,CARDIAC STENT) Cholecystectomy: No Lung Surgery: No Neurologic Surgery: No Orthopedic Surgery: Yes (orif rt forearm; lt hip replacement 10 yrs ago; rt hip 2011) - Suicide/Smoking/Psychosocial Hx Smoking History: Former smoker Have you smoked in the past 12 months: No Number of Cigarettes Smoked Daily: 0 If you are a former smoker, when did you quit?: many years ago Cigars Per Day: 0 Information on smoking cessation initiated: No 'Breaking Loose' booklet given: 03/18/18 Hx Alcohol Use: Yes (SOCIAL) Drug/Substance Use Hx: No Substance Use Type: Alcohol Hx Substance Use Treatment: No Review of Systems - Review of Systems Comments:: 08/05/18 16:58 GENERAL/CONSTITUTIONAL: No fever or chills. No weakness. HEAD, EYES, EARS, NOSE AND THROAT: No change in vision. No ear pain or discharge. No sore throat. CARDIOVASCULAR: +SOB as described. No chest pain. RESPIRATORY: No cough, wheezing, or hemoptysis. GASTROINTESTINAL: No nausea, vomiting, diarrhea or constipation. GENITOURINARY: No dysuria, frequency, or change in urination. MUSCULOSKELETAL: No joint or muscle swelling or pain. No neck or back pain. SKIN: No rash NEUROLOGIC: No headache, vertigo, loss of consciousness, or change in strength/ sensation. ENDOCRINE: No increased thirst. No abnormal weight change HEMATOLOGIC/LYMPHATIC: No anemia, easy bleeding, or history of blood clots. ALLERGIC/IMMUNOLOGIC: No hives or skin allergy. *Physical Exam - Vital Signs Last Vital Signs Temp Pulse Resp BP Pulse Ox 98.5 F 66 20 127/38 L 97 08/05/18 14:37 08/05/18 14:37 08/05/18 14:37 08/05/18 14:37 08/05/18 14:37 - Physical Exam Comments: 08/05/18 16:58 GENERAL: Awake, alert, and fully oriented, in no acute distress HEAD: No signs of trauma, normocephalic, atraumatic EYES: PERRLA, EOMI, sclera anicteric, conjunctiva clear ENT: Auricles normal inspection, hearing grossly normal, nares patent, oropharynx clear without exudates. Moist mucosa NECK: Normal ROM, supple, no lymphadenopathy, JVD, or masses LUNGS: +Diffuse wheezes noted throughout lower lung roman. HEART: Regular rate and rhythm, normal S1 and S2, no murmurs, rubs or gallops, peripheral pulses normal and equal bilaterally. ABDOMEN: Soft, nontender, normoactive bowel sounds. No guarding, no rebound. No masses EXTREMITIES: +1+ pedal edema noted bilaterally. Normal range of motion, no edema. No clubbing or cyanosis. NEUROLOGICAL: Cranial nerves II through XII grossly intact. Normal speech, normal gait, no focal sensorimotor deficits SKIN: Warm, Dry, normal turgor, no rashes or lesions noted. ED Treatment Course - LABORATORY CBC & Chemistry Diagram: 08/05/18 15:10 08/05/18 15:10 - ADDITIONAL ORDERS Additional order review: Laboratory Results 08/05/18 08/05/18 15:12 15:10 Sodium 143 Potassium 5.0 Chloride 115 H Carbon Dioxide 22 Anion Gap 7 L BUN 30 H Creatinine 1.2 Creat Clearance w eGFR 57.01 Random Glucose 100 Calcium 8.1 L Total Bilirubin 0.5 AST 33 ALT 26 Alkaline Phosphatase 111 Creatine Kinase 180 Troponin I 0.03 B-Natriuretic Peptide 3104.4 H Total Protein 7.1 Albumin 3.6 08/05/18 15:10 RBC 2.86 L MCV 97.7 H MCHC 32.6 RDW 16.3 H MPV 9.0 D Neutrophils % 71.1 Lymphocytes % 14.7 D Monocytes % 8.6 Eosinophils % 5.0 H D Basophils % 0.6 Medical Decision Making - Medical Decision Making 08/05/18 17:05 Mr. Aleamn is an 88 yo male w/ pmh as described who presents for evaluation of worsening SOB as described sent in by PCP for admission after not taking Lasix for several days. Patient currently resting comfortably however w/ significant dyspnea on exertion. Labs as below significant for elevated BNP. IV lasix given. Will admit patient for hypervolemia / diuresis as requested by PCP. 08/05/18 17:24 Discussed with inpatient team who will admit for diuresis and further evaluation. *DC/Admit/Observation/Transfer Diagnosis at time of Disposition: SOB (shortness of breath) Hypervolemia Qualifiers: Hypervolemia type: unspecified Qualified Code(s): E87.70 - Fluid overload, unspecified - Discharge Dispostion Decision to Admit order: Yes - Referrals - Patient Instructions - Post Discharge Activity
--- NOTE | 2018-08-05 17:08 | PDOC ---
Attending Attestation - Resident Resident Name: Jack Pate - ED Attending Attestation I have performed the following: I have examined & evaluated the patient, The case was reviewed & discussed with the resident, I agree w/resident's findings & plan, Exceptions are as noted - HPI HPI: 08/05/18 17:05 88-year-old male with history of coronary disease one stent, atrial fibrillation on Coumadin, congestive heart failure, hypertension, hyperlipidemia , bilateral hip replacements sent in by his primary care physician for increasing shortness of breath and dyspnea on exertion. No chest pain or fevers. Patient has not been taken his diuretics. Was sent in by his private care physician for congestive heart failure exacerbation. - Physicial Exam PE: 08/05/18 17:05 GENERAL: Awake, alert, and fully oriented, in no acute distress HEAD: No signs of trauma EYES: EOMI, sclera anicteric, conjunctiva clear ENT: Auricles normal inspection, hearing grossly normal, nares patent NECK: Normal ROM, supple, LUNGS: Breath sounds equal, clear to auscultation bilaterally. No wheezes, and no crackles HEART: Regular rate and rhythm, normal S1 and S2, no murmurs, rubs or gallops ABDOMEN: Soft, nontender, No guarding, no rebound. No masses EXTREMITIES: Normal range of motion, 1+ edema bilaterally lower extremities. No clubbing or cyanosis. No cords, erythema, or tenderness NEUROLOGICAL: Cranial nerves II through XII grossly intact. Normal speech, SKIN: Warm, Dry, normal turgor, no rashes or lesions noted. - Medical Decision Making 08/05/18 17:06 Vital Signs Temp Pulse Resp BP Pulse Ox 98.5 F 66 20 127/38 L 97 08/05/18 14:37 08/05/18 14:37 08/05/18 14:37 08/05/18 14:37 08/05/18 14:37 Patient's findings are concerning for congestive heart failure exacerbation. We' ll also rule out SD. We'll give IV Lasix. Chest x-ray, labs and admit the patient to the hospital. Heart Score/ECG Review #1 ECG reviewed & interpreted by me at: 14:40 08/05/18 17:08 junctional rhythm 58, incomplete RBBB, no std/nico, normal axis, QTC 447 msec
[2018-08-05 17:11] LABS: INR 2.97 (0.83-1.09); PROTHROMBIN TIME (PATIENT) 35.4 SEC (9.7-13.0)
[2018-08-05] MEDS ORDERED: FUROSEMIDE 40 MG/4 ML INJECTABLE VIAL IVPUSH ONE (17:12)
[2018-08-05] MEDS ORDERED: FUROSEMIDE 40 MG/4 ML INJECTABLE VIAL ONE (17:15)
[2018-08-05 17:46] LABS: URINE APPEARANCE SLCLOUDY; URINE BILIRUBIN NEGATIVE (<2.0 mg/dL); URINE COLOR YELLOW; URINE GLUCOSE (UA) NEGATIVE (NEGATIVE); URINE KETONE NEGATIVE (NEGATIVE); URINE LEUK ESTERASE TRACE (NEGATIVE); URINE NITRITE NEGATIVE (NEGATIVE); URINE PROTEIN 2+ (NEGATIVE); URINE UROBILINOGEN NEGATIVE mg/dL (0.2-1.0)
[2018-08-05 17:54] LABS: URINE MUCUS FEW
[2018-08-05] MEDS ORDERED: ACETAMINOPHEN 325 MG TABLET (FP) PO PRN (19:39)
--- NOTE | 2018-08-05 20:08 | HP ---
CHIEF COMPLAINT: Shortness of breath x 1 week PCP: Ryan Matos HISTORY OF PRESENT ILLNESS: 88 year old male with a PMH significant for CAD (1 stent), a-fib (on coumadin), CHF, HTN, HLD presented to the ED today with SOB for one week. He says he also was experiencing an intermittent tightness to his chest for the past several days both with exertion and at rest. He presented to the ED at the recommendation of his PCP Dr. Matos. Patient reports he had stopped taking his Lasix for the past several days because he was tired of having to urinate all the time. He reports having shortness of breath and his legs swelled up a little. Denies light-headedness, dizziness, syncope, palpitations, n/v/d. Patient recently d/mary kate to home from subcacute rehab at [facility] for 5 weeks s/p left hip fracture. In the ED, labs were remarkable for a BNP of 3104. Patient was given Lasix 40 mg IVP to good effect. He was also given the Flu vaccine. Patient reports feeling better than when he arrived at the ED and his breathing has improved. Recent Travel: No PAST MEDICAL HISTORY: CAD (1 stent) a-fib (on coumadin) CHF HTN HLD PAST SURGICAL HISTORY: CABG 15 years ago Cardiac stent 5 years ago Perforated bowel r/t stent procedure 5 eyars ago bilateral hip replacements Social History: Smoking: Former, quit 25 years ago Alcohol: Rarely Drugs: No Family History: Mother: Stroke, age 60 Mother: Stroke, age 75 Allergies No Known Allergies Allergy (Verified 03/18/18 09:38) HOME MEDICATIONS: Home Medications Medication Instructions Recorded Ranolazine [Ranexa -] 500 mg PO BID 03/22/12 Rosuvastatin Calcium [Crestor] 5 mg PO WEFR 03/22/12 L.acidoph,Paracasei, B.lactis 1 each PO DAILY 09/04/16 [Probiotic] Multivitamin [Poly-Vitamin] 1 each PO DAILY 09/04/16 Losartan Potassium [Cozaar] 25 mg PO DAILY 03/12/18 Warfarin Sodium [Coumadin] 3 mg PO DAILY 03/12/18 Ascorbic Acid [Vitamin C] 1,000 mg PO DAILY 03/13/18 Cholecalciferol (Vitamin D3) 2,000 unit PO DAILY 03/13/18 [Vitamin D -] Vit A/Vit C/Vit E/Zinc/Copper 1 each PO DAILY 03/13/18 [Preservision Areds Tablet] Ferrous Sulfate 325 mg PO DAILY 03/18/18 Metoprolol Succinate [Toprol Xl] 12.5 mg PO DAILY 03/18/18 Acetaminophen [Tylenol .Regular 650 mg PO Q6H PRN tablet 03/21/18 Strength -] oxyCODONE HCL [Roxicodone -] 2.5 mg PO Q6H PRN tablet MDD 20 03/21/18 REVIEW OF SYSTEMS CONSTITUTIONAL: Absent: fever, chills, diaphoresis, generalized weakness, malaise, loss of appetite, weight change HEENT: Absent: rhinorrhea, nasal congestion, throat pain, throat swelling, difficulty swallowing, mouth swelling, ear pain, eye pain, visual changes CARDIOVASCULAR: (+) peripheral edema, (+) chest tightness Absent: syncope, palpitations, irregular heart rate, lightheadedness, RESPIRATORY: (+) shortness of breath, dyspnea with exertion Absent: cough, , orthopnea, wheezing, stridor, hemoptysis GASTROINTESTINAL: Absent: abdominal pain, abdominal distension, nausea, vomiting, diarrhea, constipation, melena, hematochezia GENITOURINARY: Absent: dysuria, frequency, urgency, hesitancy, hematuria, flank pain, genital pain MUSCULOSKELETAL: Absent: myalgia, arthralgia, joint swelling, back pain, neck pain SKIN: Absent: rash, itching, pallor HEMATOLOGIC/IMMUNOLOGIC: Absent: easy bleeding, easy bruising, lymphadenopathy, frequent infections ENDOCRINE: Absent: unexplained weight gain, unexplained weight loss, heat intolerance, cold intolerance NEUROLOGIC: Absent: headache, focal weakness or paresthesias, dizziness, unsteady gait, seizure, mental status changes, bladder or bowel incontinence PSYCHIATRIC: Absent: anxiety, depression, suicidal or homicidal ideation, hallucinations. PHYSICAL EXAMINATION Vital Signs - 24 hr 08/05/18 08/05/18 08/05/18 14:37 17:36 17:37 Temperature 98.5 F 98.1 F Pulse Rate 66 54 L Pulse Rate [ 54 L Left Apical] Respiratory 20 16 Rate Blood Pressure 127/38 L Blood Pressure 104/58 L [Left Arm] O2 Sat by Pulse 97 98 97 Oximetry (%) GENERAL: Awake, alert, and fully oriented, in no acute distress. HEAD: Normal with no signs of trauma. EYES: Pupils equal, round and reactive to light, extraocular movements intact, sclera anicteric, conjunctiva clear. No lid lag. EARS, NOSE, THROAT: nares patent, +upper dentures, oropharynx clear without exudates. Moist mucous membranes. NECK: Normal range of motion, supple without lymphadenopathy, JVD, or masses. LUNGS: Faint expiratory wheeze, no crackles. No accessory muscle use. HEART: Regular rate and rhythm, normal S1 and S2 without murmur, rub or gallop. ABDOMEN: Soft, nontender, not distended, normoactive bowel sounds, no guarding, no rebound, no masses. No hepatomegaly or splenomegaly. MUSCULOSKELETAL: Normal range of motion at all joints. No bony deformities or tenderness. No CVA tenderness. UPPER EXTREMITIES: 2+ pulses, warm, well-perfused. No cyanosis. No clubbing. No peripheral edema. LOWER EXTREMITIES: +1 pitting edema to b/l LE, 2+ pulses, warm, well-perfused. No calf tenderness. NEUROLOGICAL: No facial droop, tongue midlne, Normal speech. Gait not observed PSYCHIATRIC: Cooperative. Good eye contact. Appropriate mood and affect. SKIN: Warm, dry, normal turgor, no rashes or lesions noted, normal capillary refill. Laboratory Results - last 24 hr 08/05/18 08/05/18 08/05/18 15:10 15:10 15:10 WBC 5.1 RBC 2.86 L Hgb 9.1 L Hct 27.9 L MCV 97.7 H MCH 31.8 MCHC 32.6 RDW 16.3 H Plt Count 172 MPV 9.0 D Absolute Neuts (auto) 3.6 Neutrophils % 71.1 Lymphocytes % 14.7 D Monocytes % 8.6 Eosinophils % 5.0 H D Basophils % 0.6 Nucleated RBC % 0 PT with INR 35.40 H INR 2.97 H Sodium 143 Potassium 5.0 Chloride 115 H Carbon Dioxide 22 Anion Gap 7 L BUN 30 H Creatinine 1.2 Creat Clearance w eGFR 57.01 Random Glucose 100 Calcium 8.1 L Total Bilirubin 0.5 AST 33 ALT 26 Alkaline Phosphatase 111 Creatine Kinase 180 Creatine Kinase Index 2.7 CK-MB (CK-2) 4.9 H Troponin I 0.03 B-Natriuretic Peptide Total Protein 7.1 Albumin 3.6 Urine Color Urine Appearance Urine pH Ur Specific [place] Urine Protein Urine Glucose (UA) Urine Ketones Urine Blood Urine Nitrite Urine Bilirubin Urine Urobilinogen Ur Leukocyte Esterase Urine WBC (Auto) Urine RBC (Auto) Urine Mucus 08/05/18 08/05/18 15:12 17:14 WBC RBC Hgb Hct MCV MCH MCHC RDW Plt Count MPV Absolute Neuts (auto) Neutrophils % Lymphocytes % Monocytes % Eosinophils % Basophils % Nucleated RBC % PT with INR INR Sodium Potassium Chloride Carbon Dioxide Anion Gap BUN Creatinine Creat Clearance w eGFR Random Glucose Calcium Total Bilirubin AST ALT Alkaline Phosphatase Creatine Kinase Creatine Kinase Index CK-MB (CK-2) Troponin I B-Natriuretic Peptide 3104.4 H Total Protein Albumin Urine Color Yellow Urine Appearance Slcloudy Urine pH 5.0 Ur Specific [place] 1.017 Urine Protein 2+ H Urine Glucose (UA) Negative Urine Ketones Negative Urine Blood Negative Urine Nitrite Negative Urine Bilirubin Negative Urine Urobilinogen Negative Ur Leukocyte Esterase Trace Urine WBC (Auto) 4 Urine RBC (Auto) <1 Urine Mucus Few ECG Unremarkable for acute ischemic event; junctional rhythm 58, incomplete RBBB, no std/nico, normal axis, QTC 447 msec CXR Some pleural reaction and atelectasis at bases, but some improvement since ASSESSMENT/PLAN: 88 year old male with a PMH significant for CAD (1 stent), a-fib (on coumadin), CHF, HTN, HLD presented to the ED today with SOB for one week. He was diuresed with Lasix and placed on observation. CHF exacerbation -Given 40 mg IVP in ED at 5:40 PM to good effect -Give 40 mg IVP tomorrow AM -Discussed with patient importance of taking Lasix everyday as prescribed despite inconvenience of polyuria -Re-start home Lasix upon d/c and f/u with PCP A-Fib -INR therapeutic -On Comadin 3 mg daily HTN -Continue Metoprolol Succinate 12.5 daily -Losartan 25 mg Daily HLD -On Crestor 5 mg Sunday and Sunday FEN --PO intake adequate --Electrolytes replete as indicated --Regular diet DVT Prophylaxis --On Coumadin Dispo: pt currently requires further inpatient observation. FULL CODE Visit type - Emergency Visit Emergency Visit: Yes ED Registration Date: 08/05/18 Care time: The patient presented to the Emergency Department on the above date and was hospitalized for further evaluation of their emergent condition. - New Patient This patient is new to me today: Yes Date on this admission: 08/06/18 - Critical Care Critical Care patient: No
[2018-08-05] MEDS ORDERED: FLU VACCINE QUAD 60 MCG/0.5 ML (MDV 18-19) IM ONE (21:00)
[2018-08-05] MEDS: RANOLAZINE E.R. 500 MG TABLET (FP) PO SCH (22:12)
[2018-08-06] MEDS ORDERED: FUROSEMIDE 40 MG/4 ML INJECTABLE VIAL IVPUSH ONE (06:00)
[2018-08-06 07:20] LABS: HEMOGLOBIN 9.1 GM/dL (11.7-16.9); INR 2.62 (0.83-1.09); MCH 31.5 pg (25.7-33.7); MCHC 32.5 g/dl (32.0-35.9); MEAN CELL VOLUME 96.9 fl (80-96); MEAN PLT VOLUME 7.9 fl (7.5-11.1); PLATELET COUNT 149 K/MM3 (134-434); PROTHROMBIN TIME (PATIENT) 31.2 SEC (9.7-13.0); RBC 2.89 M/mm3 (4.00-5.60); RDW 15.7 % (11.9-15.9); WHITE BLOOD COUNT 4.7 K/mm3 (4.0-10.0)
[2018-08-06 07:22] LABS: ACTIVATED PTT 42.9 SECONDS (25.2-36.5)
[2018-08-06 07:34] LABS: ANION GAP 9 MMOL/L (8-16); BLOOD UREA NITROGEN 29 mg/dL (7-18); CALCIUM 8.3 mg/dL (8.5-10.1); CHLORIDE 113 mmol/L (98-107); CO2 25 mmol/L (21-32); CREATININE 1.3 mg/dL (0.55-1.3); GLUCOSE,RANDOM 89 mg/dL (74-106); POTASSIUM 4.3 mmol/L (3.5-5.1); SODIUM 146 mmol/L (136-145)
[2018-08-06] MEDS: CHOLECALCIFEROL (VITAMIN D3) 1,000 UNIT TABLET (FP) PO SCH (09:38)
[2018-08-06] MEDS: RANOLAZINE E.R. 500 MG TABLET (FP) PO SCH ×2 (09:39→21:45)
[2018-08-06] MEDS: metoPROLOL SUCCINATE 25 MG TAB.SR.24H (FP) PO SCH (09:39)
[2018-08-06] MEDS: LOSARTAN POTASSIUM 25 MG TABLET PO SCH (09:39)
[2018-08-06] MEDS ORDERED: SENNOSIDES 8.6MG TABLET (FP) PO PRN (10:49)
--- NOTE | 2018-08-06 11:00 | PN ---
Progress Note (short form) - Note Progress Note: Dr. Shaw to document today. Patient D/Sergio lasix at home due to urinary frequency but yesterday called Re: SOB and wheezing. When seen in ER he also said he was having chest pressure. Today he says he feels better but O2 Sat 88 and still some rales at bases and a few fine wheezes. Lab and INR stable. Plan: Cardiology consult (follows with Dr. Frank Rosales) and add nasal o2. 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
--- NOTE | 2018-08-06 11:23 | CON.CARD ---
Consult Consult Specialty:: Cardiology Referred by:: Dr. Ryan Matos Reason for Consultation:: Cardiac evaluation - History of Present Illness Chief Complaint: Shortness of breath History of Present Illness: Patient is an 88 year old male well known to us with underlying history of CAD s /p CABG (JHAVERI to mLAD, SVG to RPDA), s/p PCI/LUIS EDUARDO to LAD, persistent AF on Coumadin, diastolic dysfunction, HTN, hypercholesterolemia and carotid stenosis who presents with SOB after not taking diuretics on his own for several weeks because of the frequent urination. Currently, he appears comfortable without chest pain, SOB or palpitations. Denies paroxysmal nocturnal dyspnea or orthopnea. Denies fever or chills. Denies nausea, vomiting, diarrhea or abdominal pain. Denies headache or lightheadedness. Denies LE edema - History Source History Provided By: Patient, Medical Record Limitations to Obtaining History: No Limitations - Past Medical History Cardio/Vascular: Yes: AFIB, CAD, CHF, HTN, Hyperlipdemia Renal/: Yes: Renal Inusuff Musculoskeletal: Yes: Other (spinal stenosis) - Past Surgical History Past Surgical History: Yes: CABG, Colectomy, Hernia Repair, Joint Replacement (b /l hip replacement ORIF right arm), Stent - Alcohol/Substance Use Hx Alcohol Use: Yes (SOCIAL) History of Substance Use: reports: None - Smoking History Smoking history: Former smoker Have you smoked in the past 12 months: No Aproximately how many cigarettes per day: 0 If you are a former smoker, when did you quit?: many years ago - Social History ADL: Independent History of Recent Travel: No Home Medications - Allergies Allergies/Adverse Reactions: Allergies Allergy/AdvReac Type Severity Reaction Status Date / Time No Known Allergies Allergy Verified 03/18/18 09:38 - Home Medications Home Medications: Ambulatory Orders Ranolazine [Ranexa -] 500 mg PO BID 03/22/12 Rosuvastatin Calcium [Crestor] 5 mg PO WEFR 03/22/12 L.acidoph,Paracasei, B.lactis [Probiotic] 1 each PO DAILY 09/04/16 Multivitamin [Poly-Vitamin] 1 each PO DAILY 09/04/16 Losartan Potassium [Cozaar] 25 mg PO DAILY 03/12/18 Warfarin Sodium [Coumadin] 3 mg PO DAILY 03/12/18 Ascorbic Acid [Vitamin C] 1,000 mg PO DAILY 03/13/18 Cholecalciferol (Vitamin D3) [Vitamin D -] 2,000 unit PO DAILY 03/13/18 Vit A/Vit C/Vit E/Zinc/Copper [Preservision Areds Tablet] 1 each PO DAILY Ferrous Sulfate 325 mg PO DAILY 03/18/18 Metoprolol Succinate [Toprol Xl] 12.5 mg PO DAILY 03/18/18 Acetaminophen [Tylenol .Regular Strength -] 650 mg PO Q6H PRN tablet 03/21/18 oxyCODONE HCL [Roxicodone -] 2.5 mg PO Q6H PRN tablet MDD 20 03/21/18 Family Disease History - Family Disease History Family Disease History: Heart Disease: Mother, Brother, Other: Father Review of Systems - Review of Systems Constitutional: denies: Chills, Fever Cardiovascular: reports: Shortness of Breath. denies: Chest Pain, Palpitations Respiratory: reports: SOB. denies: Cough, Hemoptysis, Orthopnea, PND Gastrointestinal: denies: Abdominal Pain, Constipation, Diarrhea, Melena, Nausea , Rectal Bleeding, Vomiting Genitourinary: denies: Dysuria, Hematuria Neurological: denies: Dizziness, Headache, Seizure, Syncope Vital Signs: Vital Signs Temperature 97.6 F 08/06/18 05:39 Pulse Rate 50 L 08/06/18 05:39 Respiratory Rate 20 08/06/18 05:39 Blood Pressure 127/52 L 08/06/18 05:39 O2 Sat by Pulse Oximetry (%) 88 L 08/06/18 05:00 Eyes: Yes: PERRL HENT: Yes: Atraumatic Neck: Yes: Supple Respiratory: Yes: Diminished Gastrointestinal: Yes: Normal Bowel Sounds, Soft. No: Tenderness Cardiovascular: Yes: Pulse Irregular JVD: No Carotid Bruit: No PMI: Non-Displaced Heart Sounds: Yes: S1, S2. No: Gallop Murmur: Yes: Systolic Murmur, Grade 1 Edema: No - Other Data Labs, Other Data: CBC, BMP 08/06/18 06:30 08/06/18 06:30 INR, PTT INR 2.62 (0.83-1.09) H 08/06/18 06:30 Troponin, BNP 08/05/18 08/05/18 08/06/18 15:10 15:12 06:30 Troponin I 0.03 0.04 B-Natriuretic Peptide 3104.4 H Imaging - Results Chest X-ray: Report Reviewed (Prominent hilar marking) EKG: Report Reviewed Problem List - Problems (1) Acute on chronic diastolic (congestive) heart failure Code(s): I50.33 - ACUTE ON CHRONIC DIASTOLIC (CONGESTIVE) HEART FAILURE (2) [id number] kidney injury Code(s): N17.9 - ACUTE KIDNEY FAILURE, UNSPECIFIED; N18.9 - CHRONIC KIDNEY DISEASE, UNSPECIFIED Qualifiers: Chronic kidney disease stage: stage 2 (mild) (3) Anemia Code(s): D64.9 - ANEMIA, UNSPECIFIED Qualifiers: Anemia type: unspecified type Qualified Code(s): D64.9 - Anemia, unspecified (4) Atrial fibrillation Code(s): I48.91 - UNSPECIFIED ATRIAL FIBRILLATION Qualifiers: Atrial fibrillation type: chronic Qualified Code(s): I48.2 - Chronic atrial fibrillation (5) CAD (coronary artery disease) Code(s): I25.10 - ATHSCL HEART DISEASE OF [place] CORONARY ARTERY W/O ANG PCTRS Qualifiers: Coronary Disease-Associated Artery/Lesion type: [place] artery [place] vs. transplanted heart: [place] heart Associated angina: without angina Qualified Code(s): I25.10 - Atherosclerotic heart disease of [place] coronary artery without angina pectoris (6) COPD (chronic obstructive pulmonary disease) Code(s): J44.9 - CHRONIC OBSTRUCTIVE PULMONARY DISEASE, UNSPECIFIED Qualifiers: COPD type: unspecified COPD Qualified Code(s): J44.9 - Chronic obstructive pulmonary disease, unspecified (7) HTN (hypertension) Code(s): I10 - ESSENTIAL (PRIMARY) HYPERTENSION Qualifiers: Hypertension type: essential hypertension Qualified Code(s): I10 - Essential (primary) hypertension (8) Hx of CABG Code(s): Z95.1 - PRESENCE OF AORTOCORONARY BYPASS GRAFT (9) Hyperlipidemia Code(s): E78.5 - HYPERLIPIDEMIA, UNSPECIFIED Qualifiers: Hyperlipidemia type: pure hypercholesterolemia Qualified Code(s): E78.00 - Pure hypercholesterolemia, unspecified; E78.0 - Pure hypercholesterolemia Assessment/Plan 1. Acute on chronic LV diastolic failure with moderate to severe TR and currently noncompliant with medication 2. CAD s/p CABG and PCI/LUIS EDUARDO, angina 3. HTN 4. Hypercholesterolemia 5. COPD 6. Anemia 7. Acute on CKD PLAN: 1. Restart Lasix and monitor renal function and electrolytes 2. Continue Losartan,Toprol XL, Ranexa and Crestor 3. Coumadin 4. Ambulate and monitor cardiac symptoms If stable, discharge planning once Lasix has been restarted and patient asymptomatic Bakari Solitario MD
[2018-08-06] MEDS: FUROSEMIDE 40 MG/4 ML INJECTABLE VIAL IVPUSH SCH (14:14)
--- NOTE | 2018-08-06 14:20 | PN ---
Progress Note, Physician Chief Complaint: Mr Aleman says he is feeling better today. Still with some shortness of breath but improving. No cp or n/v. - Current Medication List Current Medications: Active Medications Acetaminophen (Tylenol -) 650 mg PO Q6H PRN PRN Reason: PAIN LEVEL 1-5 Cholecalciferol (Vitamin D3 -) 2,000 unit PO DAILY [facility] Last Admin: 08/06/18 09:38 Dose: 2,000 unit Furosemide (Lasix Injection -) 40 mg IVPUSH BID@0600,1400 [facility] Losartan Potassium (Cozaar -) 25 mg PO DAILY [facility] Last Admin: 08/06/18 09:39 Dose: 25 mg Metoprolol Succinate (Toprol Xl -) 12.5 mg PO DAILY [facility] Last Admin: 08/06/18 09:39 Dose: 12.5 mg Ranolazine (Ranexa -) 500 mg PO BID [facility] Last Admin: 08/06/18 09:39 Dose: 500 mg Senna (Senna -) 2 tab PO HS PRN PRN Reason: CONSTIPATION Warfarin Sodium (Coumadin -) 3 mg PO DAILY@1800 [facility] - Objective Vital Signs: Vital Signs Temperature 36.4 C 08/06/18 13:25 Pulse Rate 45 L 08/06/18 13:25 Respiratory Rate 20 08/06/18 13:25 Blood Pressure 106/55 L 08/06/18 13:25 O2 Sat by Pulse Oximetry (%) 100 08/06/18 13:00 Constitutional: Yes: Well Nourished, No Distress, Calm Cardiovascular: Yes: Regular Rate and Rhythm. No: Gallop, Murmur, Rub Respiratory: Yes: Regular, On Nasal O2, Rhonchi. No: CTA Bilaterally, Rales, Wheezes Gastrointestinal: Yes: Normal Bowel Sounds, Soft. No: Distention, Tenderness Extremities: Yes: WNL Edema: No Labs: CBC, BMP 08/06/18 06:30 08/06/18 06:30 INR, PTT INR 2.62 (0.83-1.09) H 08/06/18 06:30 Problem List - Problems (1) Acute on chronic diastolic (congestive) heart failure Assessment/Plan: -secondary to patient stopping his lasix because he did not want to urinate as much -appreciate cardiology assistance -continue IV lasix -improving Code(s): I50.33 - ACUTE ON CHRONIC DIASTOLIC (CONGESTIVE) HEART FAILURE (2) Atrial fibrillation Assessment/Plan: -sounds in sinus rhythm on exam -continue toprol xl -continue coumadin -daily INRs Code(s): I48.91 - UNSPECIFIED ATRIAL FIBRILLATION Qualifiers: Atrial fibrillation type: chronic Qualified Code(s): I48.2 - Chronic atrial fibrillation (3) CAD (coronary artery disease) Assessment/Plan: -quiescent -continue current management Code(s): I25.10 - ATHSCL HEART DISEASE OF [place] CORONARY ARTERY W/O ANG PCTRS Qualifiers: Coronary Disease-Associated Artery/Lesion type: [place] artery [place] vs. transplanted heart: [place] heart Associated angina: without angina Qualified Code(s): I25.10 - Atherosclerotic heart disease of [place] coronary artery without angina pectoris (4) CKD (chronic kidney disease) Assessment/Plan: -at baseline Code(s): N18.9 - CHRONIC KIDNEY DISEASE, UNSPECIFIED Qualifiers: Chronic kidney disease stage: stage 2 (mild) Qualified Code(s): N18.2 - Chronic kidney disease, stage 2 (mild) (5) HTN (hypertension) Assessment/Plan: -well controlled Code(s): I10 - ESSENTIAL (PRIMARY) HYPERTENSION Qualifiers: Hypertension type: essential hypertension Qualified Code(s): I10 - Essential (primary) hypertension (6) Pulmonary hypertension Assessment/Plan: -continue diuresis -outpatient management Code(s): I27.2 - OTHER SECONDARY PULMONARY HYPERTENSION * DO NOT USE *
[2018-08-06] MEDS: WARFARIN NA 3 MG TABLET PO SCH (17:36)
[2018-08-06] MEDS ORDERED: WARFARIN NA 3 MG TABLET PO SCH (18:00)
[2018-08-07] MEDS: FUROSEMIDE 40 MG/4 ML INJECTABLE VIAL IVPUSH SCH (05:48)
[2018-08-07 08:35] LABS: BASO % 1.1 % (0-2.0); EOS % 7.1 % (0-4.5); HEMATOCRIT 27.8 % (35.4-49); HEMOGLOBIN 9.1 GM/dL (11.7-16.9); MCH 31.6 pg (25.7-33.7); MCHC 32.7 g/dl (32.0-35.9); MEAN CELL VOLUME 96.7 fl (80-96); MEAN PLT VOLUME 7.9 fl (7.5-11.1); MONO % 9.5 % (3.8-10.2); NEUT % 62.3 % (42.8-82.8); PLATELET COUNT 150 K/MM3 (134-434); RBC 2.88 M/mm3 (4.00-5.60); RDW 16.1 % (11.9-15.9); WHITE BLOOD COUNT 4.6 K/mm3 (4.0-10.0)
[2018-08-07 08:39] LABS: INR 2.23 (0.83-1.09); PROTHROMBIN TIME (PATIENT) 26.5 SEC (9.7-13.0)
--- NOTE | 2018-08-07 08:46 | PN ---
Progress Note (short form) - Note Progress Note: to document today. Nearly 2 Liter of urine output yesterday. No wheezes and markedly decreased lung congestion today. O2 Sat 88 to 96 today. Await Bun Creatinine; will lower IV Lasix to 40mg Daily; add PT.
[2018-08-07 09:01] LABS: ANION GAP 7 MMOL/L (8-16); BLOOD UREA NITROGEN 33 mg/dL (7-18); CALCIUM 8.6 mg/dL (8.5-10.1); CHLORIDE 106 mmol/L (98-107); CO2 30 mmol/L (21-32); CREATININE 1.5 mg/dL (0.55-1.3); GLUCOSE,RANDOM 91 mg/dL (74-106); MAGNESIUM 2.1 mg/dL (1.8-2.4); PHOSPHOROUS 3.9 mg/dL (2.5-4.9); POTASSIUM 4.2 mmol/L (3.5-5.1); SODIUM 143 mmol/L (136-145)
[2018-08-07] MEDS: RANOLAZINE E.R. 500 MG TABLET (FP) PO SCH ×2 (09:35→21:40)
[2018-08-07] MEDS: LOSARTAN POTASSIUM 25 MG TABLET PO SCH (09:35)
[2018-08-07] MEDS: metoPROLOL SUCCINATE 25 MG TAB.SR.24H (FP) PO SCH (09:35)
[2018-08-07] MEDS: CHOLECALCIFEROL (VITAMIN D3) 1,000 UNIT TABLET (FP) PO SCH (09:36)
[2018-08-07] MEDS ORDERED: FUROSEMIDE 40 MG/4 ML INJECTABLE VIAL IVPUSH SCH (10:00)
--- NOTE | 2018-08-07 12:25 | PN ---
Progress Note, Physician Chief Complaint: Mr Aleman says he is much better today. Denies sob, [place], orthopnea. Ambulating with walker. No cp or n/v. - Current Medication List Current Medications: Active Medications Acetaminophen (Tylenol -) 650 mg PO Q6H PRN PRN Reason: PAIN LEVEL 1-5 Cholecalciferol (Vitamin D3 -) 2,000 unit PO DAILY [facility] Last Admin: 08/07/18 09:36 Dose: 2,000 unit Furosemide (Lasix Injection -) 40 mg IVPUSH DAILY [facility] Last Admin: 08/07/18 09:35 Dose: 40 mg Losartan Potassium (Cozaar -) 25 mg PO DAILY [facility] Last Admin: 08/07/18 09:35 Dose: 25 mg Metoprolol Succinate (Toprol Xl -) 12.5 mg PO DAILY [facility] Last Admin: 08/07/18 09:35 Dose: 12.5 mg Ranolazine (Ranexa -) 500 mg PO BID [facility] Last Admin: 08/07/18 09:35 Dose: 500 mg Senna (Senna -) 2 tab PO HS PRN PRN Reason: CONSTIPATION Warfarin Sodium (Coumadin -) 3 mg PO DAILY@1800 [facility] Last Admin: 08/06/18 17:36 Dose: 3 mg - Objective Vital Signs: Vital Signs Temperature 36.8 C 08/07/18 10:00 Pulse Rate 58 L 08/07/18 10:00 Respiratory Rate 20 08/07/18 10:00 Blood Pressure 129/60 08/07/18 10:00 O2 Sat by Pulse Oximetry (%) 99 08/07/18 09:00 Constitutional: Yes: Well Nourished, No Distress, Calm Cardiovascular: Yes: Regular Rate and Rhythm. No: Gallop, Murmur, Rub Respiratory: Yes: Regular, CTA Bilaterally. No: Rales, Rhonchi, Wheezes Gastrointestinal: Yes: Normal Bowel Sounds, Soft. No: Distention, Tenderness Extremities: Yes: WNL Edema: No Labs: CBC, BMP 08/07/18 07:50 08/07/18 07:50 INR, PTT INR 2.23 (0.83-1.09) H 08/07/18 07:50 Problem List - Problems (1) Acute on chronic diastolic (congestive) heart failure Code(s): I50.33 - ACUTE ON CHRONIC DIASTOLIC (CONGESTIVE) HEART FAILURE (2) Atrial fibrillation Code(s): I48.91 - UNSPECIFIED ATRIAL FIBRILLATION Qualifiers: Atrial fibrillation type: chronic Qualified Code(s): I48.2 - Chronic atrial fibrillation (3) CAD (coronary artery disease) Code(s): I25.10 - ATHSCL HEART DISEASE OF [place] CORONARY ARTERY W/O ANG PCTRS Qualifiers: Coronary Disease-Associated Artery/Lesion type: [place] artery [place] vs. transplanted heart: [place] heart Associated angina: without angina Qualified Code(s): I25.10 - Atherosclerotic heart disease of [place] coronary artery without angina pectoris (4) CKD (chronic kidney disease) Code(s): N18.9 - CHRONIC KIDNEY DISEASE, UNSPECIFIED Qualifiers: Chronic kidney disease stage: stage 2 (mild) Qualified Code(s): N18.2 - Chronic kidney disease, stage 2 (mild) (5) HTN (hypertension) Code(s): I10 - ESSENTIAL (PRIMARY) HYPERTENSION Qualifiers: Hypertension type: essential hypertension Qualified Code(s): I10 - Essential (primary) hypertension (6) Pulmonary hypertension Code(s): I27.2 - OTHER SECONDARY PULMONARY HYPERTENSION * DO NOT USE * Assessment/Plan (1) Acute on chronic diastolic (congestive) heart failure Assessment/Plan: -continue IV lasix, agree with decreasing to daily dose -plan to transition to oral diuretics tomorrow Code(s): I50.33 - ACUTE ON CHRONIC DIASTOLIC (CONGESTIVE) HEART FAILURE (2) Atrial fibrillation Assessment/Plan: -sounds in sinus rhythm on exam -continue toprol xl -continue coumadin -daily INRs Code(s): I48.91 - UNSPECIFIED ATRIAL FIBRILLATION Qualifiers: Atrial fibrillation type: chronic Qualified Code(s): I48.2 - Chronic atrial fibrillation (3) CAD (coronary artery disease) Assessment/Plan: -quiescent -continue current management Code(s): I25.10 - ATHSCL HEART DISEASE OF [place] CORONARY ARTERY W/O ANG PCTRS Qualifiers: Coronary Disease-Associated Artery/Lesion type: [place] artery [place] vs. transplanted heart: [place] heart Associated angina: without angina Qualified Code(s): I25.10 - Atherosclerotic heart disease of [place] coronary artery without angina pectoris (4) CKD (chronic kidney disease) Assessment/Plan: -at baseline Code(s): N18.9 - CHRONIC KIDNEY DISEASE, UNSPECIFIED Qualifiers: Chronic kidney disease stage: stage 2 (mild) Qualified Code(s): N18.2 - Chronic kidney disease, stage 2 (mild) (5) HTN (hypertension) Assessment/Plan: -well controlled Code(s): I10 - ESSENTIAL (PRIMARY) HYPERTENSION Qualifiers: Hypertension type: essential hypertension Qualified Code(s): I10 - Essential (primary) hypertension (6) Pulmonary hypertension Assessment/Plan: -continue diuresis -outpatient management Code(s): I27.2 - OTHER SECONDARY PULMONARY HYPERTENSION * DO NOT USE * Dispo -possible discharge tomorrow
--- NOTE | 2018-08-07 15:13 | PN ---
Progress Note, Physician History of Present Illness: Ambulating with cane assistance with improved ELMORE, orthopnea, lower extremity edema, O2 sat after significant diuresis, denies chest pain. - Current Medication List Current Medications: Active Medications Acetaminophen (Tylenol -) 650 mg PO Q6H PRN PRN Reason: PAIN LEVEL 1-5 Cholecalciferol (Vitamin D3 -) 2,000 unit PO DAILY [facility] Last Admin: 08/07/18 09:36 Dose: 2,000 unit Furosemide (Lasix Injection -) 40 mg IVPUSH DAILY [facility] Last Admin: 08/07/18 09:35 Dose: 40 mg Losartan Potassium (Cozaar -) 25 mg PO DAILY [facility] Last Admin: 08/07/18 09:35 Dose: 25 mg Metoprolol Succinate (Toprol Xl -) 12.5 mg PO DAILY [facility] Last Admin: 08/07/18 09:35 Dose: 12.5 mg Ranolazine (Ranexa -) 500 mg PO BID [facility] Last Admin: 08/07/18 09:35 Dose: 500 mg Senna (Senna -) 2 tab PO HS PRN PRN Reason: CONSTIPATION Warfarin Sodium (Coumadin -) 3 mg PO DAILY@1800 [facility] Last Admin: 08/06/18 17:36 Dose: 3 mg - Objective Vital Signs: Vital Signs Temperature 97.6 F 08/07/18 13:37 Pulse Rate 53 L 08/07/18 13:37 Respiratory Rate 20 08/07/18 13:37 Blood Pressure 101/45 L 08/07/18 13:37 O2 Sat by Pulse Oximetry (%) 99 08/07/18 09:00 Constitutional: Yes: No Distress, Calm, Thin Neck: Yes: Supple Cardiovascular: Yes: Pulse Irregular Respiratory: Yes: Regular, CTA Bilaterally Gastrointestinal: Yes: Normal Bowel Sounds, Soft Edema: No Labs: CBC, BMP 08/07/18 07:50 08/07/18 07:50 INR, PTT INR 2.23 (0.83-1.09) H 08/07/18 07:50 - ....Imaging EKG: Report Reviewed (Afib @ 58) Problem List - Problems (1) Chronic anticoagulation Code(s): Z79.01 - PRESIDENT CELEBRITY ACQUISTION (CURRENT) USE OF ANTICOAGULANTS (2) SOB (shortness of breath) Code(s): R06.02 - SHORTNESS OF BREATH (3) Acute on chronic diastolic (congestive) heart failure Code(s): I50.33 - ACUTE ON CHRONIC DIASTOLIC (CONGESTIVE) HEART FAILURE (4) [id number] kidney injury Code(s): N17.9 - ACUTE KIDNEY FAILURE, UNSPECIFIED; N18.9 - CHRONIC KIDNEY DISEASE, UNSPECIFIED Qualifiers: Chronic kidney disease stage: stage 2 (mild) (5) Atrial fibrillation Code(s): I48.91 - UNSPECIFIED ATRIAL FIBRILLATION Qualifiers: Atrial fibrillation type: permanent Qualified Code(s): I48.2 - Chronic atrial fibrillation (6) CAD (coronary artery disease) Code(s): I25.10 - ATHSCL HEART DISEASE OF [place] CORONARY ARTERY W/O ANG PCTRS Qualifiers: Coronary Disease-Associated Artery/Lesion type: [place] artery [place] vs. transplanted heart: [place] heart Associated angina: without angina Qualified Code(s): I25.10 - Atherosclerotic heart disease of [place] coronary artery without angina pectoris (7) HTN (hypertension) Code(s): I10 - ESSENTIAL (PRIMARY) HYPERTENSION Qualifiers: Hypertension type: essential hypertension Qualified Code(s): I10 - Essential (primary) hypertension (8) Hx of CABG Code(s): Z95.1 - PRESENCE OF AORTOCORONARY BYPASS GRAFT (9) Hyperlipidemia Code(s): E78.5 - HYPERLIPIDEMIA, UNSPECIFIED Qualifiers: Hyperlipidemia type: pure hypercholesterolemia Qualified Code(s): E78.00 - Pure hypercholesterolemia, unspecified; E78.0 - Pure hypercholesterolemia (10) Status post insertion of drug-eluting stent into left anterior descending ( LAD) artery Code(s): Z95.5 - PRESENCE OF CORONARY ANGIOPLASTY IMPLANT AND GRAFT Assessment/Plan 11/16/2017 Echo: Normal LV size and fxn LVEF 55-60%, severe AUTUMN, mild decreased RV fxn with mod dilatation, mild MR, mod-severe TR RVSP 46 mmHg 11/07/2016 P-Myoview: No ischmeia, LVEF 69% 1. Acute on chronic LV diastolic failure with moderate to severe TR and noncompliant with medication resolving 2. CAD s/p CABG and PCI/LUIS EDUARDO, angina 3. Permanent atrial fibrillation [id number] with therapeutic INR 4. HTN/HCVD 5. Hypercholesterolemia 6. COPD 7. Anemia 8. Acute on CKD 9. Moderate carotid stenosis PLAN: 1. Oral diuretics in AM 2. Continue Losartan 25 qd, Toprol XL 12.5 qd, Ranexa 500 bid and Crestor 5 qd 3. Coumadin per INR 4. D/c planning with f/u in office with Dr. Rosales , emphasize importance of medication and diet compliance
--- NOTE | 2018-08-07 15:19 | EKG ---
Test Reason : Blood Pressure : / mmHG Vent. Rate : 058 BPM Atrial Rate : 090 BPM P-R Int : 000 ms QRS Dur : 104 ms QT Int : 456 ms P-R-T Axes : 000 073 -01 degrees QTc Int : 447 ms JUNCTIONAL RHYTHM INCOMPLETE RIGHT BUNDLE BRANCH BLOCK CANNOT RULE OUT ANTERIOR INFARCT , AGE UNDETERMINED ABNORMAL ECG WHEN COMPARED WITH ECG OF 18-MAR-2018 13:57, JUNCTIONAL RHYTHM HAS REPLACED SINUS RHYTHM INCOMPLETE RIGHT BUNDLE BRANCH BLOCK IS NOW PRESENT MINIMAL CRITERIA FOR ANTERIOR INFARCT ARE NOW PRESENT Confirmed by CARRILLO BASHIR, JA ([id number]) on 08/07/2018 3:18:48 PM Referred By: Confirmed By:JA VIZCAINO MD
[2018-08-07] MEDS: WARFARIN NA 3 MG TABLET PO SCH (17:56)
[2018-08-07] MEDS ORDERED: ROSUVASTATIN CA 5 MG TABLET (FP) PO SCH (22:00)
[2018-08-08 06:09] LABS: EOS % 6.2 % (0-4.5); HEMOGLOBIN 8.6 GM/dL (11.7-16.9); LYMPH % 20.3 % (8-40); MCHC 33.3 g/dl (32.0-35.9); MEAN CELL VOLUME 96.1 fl (80-96); MEAN PLT VOLUME 7.9 fl (7.5-11.1); MONO % 10.7 % (3.8-10.2); NEUT % 61.8 % (42.8-82.8); PLATELET COUNT 135 K/MM3 (134-434); RBC 2.71 M/mm3 (4.00-5.60); WHITE BLOOD COUNT 4.8 K/mm3 (4.0-10.0)
[2018-08-08 06:25] LABS: INR 2.21 (0.83-1.09); PROTHROMBIN TIME (PATIENT) 26.3 SEC (9.7-13.0)
[2018-08-08 06:45] LABS: ANION GAP 8 MMOL/L (8-16); BLOOD UREA NITROGEN 38 mg/dL (7-18); CHLORIDE 105 mmol/L (98-107); CO2 28 mmol/L (21-32); CREATININE 1.5 mg/dL (0.55-1.3); GLUCOSE,RANDOM 90 mg/dL (74-106); PHOSPHOROUS 3.8 mg/dL (2.5-4.9); POTASSIUM 4.1 mmol/L (3.5-5.1); SODIUM 142 mmol/L (136-145)
--- NOTE | 2018-08-08 08:45 | PN ---
Progress Note (short form) - Note Progress Note: Dr. Shaw to document today. To Discharge + VNS Hb 8.6 I can follow Heme lab as outpatient; several added this AM.
[2018-08-08] MEDS ORDERED: FUROSEMIDE 20 MG TABLET (FP) PO SCH (10:00)
[2018-08-08] MEDS: LOSARTAN POTASSIUM 25 MG TABLET PO SCH (10:19)
[2018-08-08] MEDS: metoPROLOL SUCCINATE 25 MG TAB.SR.24H (FP) PO SCH (10:20)
[2018-08-08] MEDS: CHOLECALCIFEROL (VITAMIN D3) 1,000 UNIT TABLET (FP) PO SCH (10:21)
[2018-08-08] MEDS: RANOLAZINE E.R. 500 MG TABLET (FP) PO SCH (10:26)
--- NOTE | 2018-08-08 11:43 | PN ---
Progress Note, Physician History of Present Illness: Ambulating with cane assistance with improved ELMORE, orthopnea, lower extremity edema, O2 sat after significant diuresis, denies chest pain. - Current Medication List Current Medications: Active Medications Acetaminophen (Tylenol -) 650 mg PO Q6H PRN PRN Reason: PAIN LEVEL 1-5 Cholecalciferol (Vitamin D3 -) 2,000 unit PO DAILY [facility] Last Admin: 08/08/18 10:21 Dose: 2,000 unit Furosemide (Lasix -) 20 mg PO DAILY [facility] Last Admin: 08/08/18 10:20 Dose: 20 mg Losartan Potassium (Cozaar -) 25 mg PO DAILY [facility] Last Admin: 08/08/18 10:19 Dose: 25 mg Metoprolol Succinate (Toprol Xl -) 12.5 mg PO DAILY [facility] Last Admin: 08/08/18 10:20 Dose: 12.5 mg Ranolazine (Ranexa -) 500 mg PO BID [facility] Last Admin: 08/08/18 10:26 Dose: 500 mg Rosuvastatin Calcium (Crestor -) 5 mg PO HS [facility] Last Admin: 08/07/18 21:40 Dose: 5 mg Senna (Senna -) 2 tab PO HS PRN PRN Reason: CONSTIPATION Warfarin Sodium (Coumadin -) 3 mg PO DAILY@1800 [facility] Last Admin: 08/07/18 17:56 Dose: 3 mg - Objective Vital Signs: Vital Signs Temperature 97.9 F 08/08/18 09:00 Pulse Rate 53 L 08/08/18 09:00 Respiratory Rate 17 08/08/18 09:00 Blood Pressure 117/45 L 08/08/18 09:00 O2 Sat by Pulse Oximetry (%) 99 08/07/18 21:00 Constitutional: Yes: No Distress, Calm, Thin Neck: Yes: Supple Cardiovascular: Yes: Regular Rate and Rhythm Respiratory: Yes: Regular, CTA Bilaterally Gastrointestinal: Yes: Normal Bowel Sounds, Soft Edema: No Labs: CBC, BMP 08/08/18 05:30 08/08/18 05:30 INR, PTT INR 2.21 (0.83-1.09) H 08/08/18 05:30 Problem List - Problems (1) Chronic anticoagulation Code(s): Z79.01 - FINE UNHAIRER (CURRENT) USE OF ANTICOAGULANTS (2) SOB (shortness of breath) Code(s): R06.02 - SHORTNESS OF BREATH (3) Acute on chronic diastolic (congestive) heart failure Code(s): I50.33 - ACUTE ON CHRONIC DIASTOLIC (CONGESTIVE) HEART FAILURE (4) Kybiq-qm-hhbsrzt kidney injury Code(s): N17.9 - ACUTE KIDNEY FAILURE, UNSPECIFIED; N18.9 - CHRONIC KIDNEY DISEASE, UNSPECIFIED Qualifiers: Chronic kidney disease stage: stage 2 (mild) (5) Atrial fibrillation Code(s): I48.91 - UNSPECIFIED ATRIAL FIBRILLATION Qualifiers: Atrial fibrillation type: permanent Qualified Code(s): I48.2 - Chronic atrial fibrillation (6) CAD (coronary artery disease) Code(s): I25.10 - ATHSCL HEART DISEASE OF [place] CORONARY ARTERY W/O ANG PCTRS Qualifiers: Coronary Disease-Associated Artery/Lesion type: [place] artery [place] vs. transplanted heart: [place] heart Associated angina: without angina Qualified Code(s): I25.10 - Atherosclerotic heart disease of [place] coronary artery without angina pectoris (7) HTN (hypertension) Code(s): I10 - ESSENTIAL (PRIMARY) HYPERTENSION Qualifiers: Hypertension type: essential hypertension Qualified Code(s): I10 - Essential (primary) hypertension (8) Hx of CABG Code(s): Z95.1 - PRESENCE OF AORTOCORONARY BYPASS GRAFT (9) Hyperlipidemia Code(s): E78.5 - HYPERLIPIDEMIA, UNSPECIFIED Qualifiers: Hyperlipidemia type: pure hypercholesterolemia Qualified Code(s): E78.00 - Pure hypercholesterolemia, unspecified; E78.0 - Pure hypercholesterolemia (10) Status post insertion of drug-eluting stent into left anterior descending ( LAD) artery Code(s): Z95.5 - PRESENCE OF CORONARY ANGIOPLASTY IMPLANT AND GRAFT Assessment/Plan 11/16/2017 Echo: Normal LV size and fxn LVEF 55-60%, severe AUTUMN, mild decreased RV fxn with mod dilatation, mild MR, mod-severe TR RVSP 46 mmHg 11/07/2016 P-Myoview: No ischmeia, LVEF 69% 1. Acute on chronic LV diastolic failure with moderate to severe TR and noncompliant with medication resolving 2. CAD s/p CABG and PCI/LUIS EDUARDO, angina 3. Permanent atrial fibrillation [id number] with therapeutic INR 4. HTN/HCVD 5. Hypercholesterolemia 6. COPD 7. Anemia 8. Acute on CKD 9. Moderate carotid stenosis PLAN: 1. Oral diuretics Lasix 20 qd today 2. Continue Losartan 25 qd, Toprol XL 12.5 qd, Ranexa 500 bid and Crestor 5 qd 3. Coumadin per INR 4. D/c planning with f/u in office with Dr. Rosales , emphasize importance of medication and diet compliance
--- NOTE | 2018-08-08 11:44 | DS ---
Physical Examination Vital Signs: Vital Signs Temperature 36.6 C 08/08/18 09:00 Pulse Rate 53 L 08/08/18 09:00 Respiratory Rate 17 08/08/18 09:00 Blood Pressure 117/45 L 08/08/18 09:00 O2 Sat by Pulse Oximetry (%) 99 08/07/18 21:00 Constitutional: Yes: Well Nourished, No Distress, Calm Cardiovascular: Yes: Regular Rate and Rhythm. No: Gallop, Murmur, Rub Respiratory: Yes: Regular, CTA Bilaterally. No: Rales, Rhonchi, Wheezes Gastrointestinal: Yes: Normal Bowel Sounds, Soft. No: Distention, Tenderness Extremities: Yes: WNL Edema: No Labs: CBC, BMP 08/08/18 05:30 08/08/18 05:30 Discharge Summary Reason For Visit: SHORTNESS OF BREATH,HYPERVOLEMIA Current Active Problems Chronic anticoagulation (Acute) Hypervolemia (Acute) SOB (shortness of breath) (Acute) Status post insertion of drug-eluting stent into left anterior descending (LAD) artery (Acute) Hospital Course: (1) Acute on chronic diastolic (congestive) heart failure Code(s): I50.33 - ACUTE ON CHRONIC DIASTOLIC (CONGESTIVE) HEART FAILURE (2) Atrial fibrillation Code(s): I48.91 - UNSPECIFIED ATRIAL FIBRILLATION Qualifiers: Atrial fibrillation type: chronic Qualified Code(s): I48.2 - Chronic atrial fibrillation (3) CAD (coronary artery disease) Code(s): I25.10 - ATHSCL HEART DISEASE OF [place] CORONARY ARTERY W/O ANG PCTRS Qualifiers: Coronary Disease-Associated Artery/Lesion type: [place] artery [place] vs. transplanted heart: [place] heart Associated angina: without angina Qualified Code(s): I25.10 - Atherosclerotic heart disease of [place] coronary artery without angina pectoris (4) CKD (chronic kidney disease) Code(s): N18.9 - CHRONIC KIDNEY DISEASE, UNSPECIFIED Qualifiers: Chronic kidney disease stage: stage 2 (mild) Qualified Code(s): N18.2 - Chronic kidney disease, stage 2 (mild) (5) HTN (hypertension) Code(s): I10 - ESSENTIAL (PRIMARY) HYPERTENSION Qualifiers: Hypertension type: essential hypertension Qualified Code(s): I10 - Essential (primary) hypertension (6) Pulmonary hypertension Code(s): I27.2 - OTHER SECONDARY PULMONARY HYPERTENSION * DO NOT USE * Mr Aleman is a pleasant 88 year old male who comes in with CHF exacerbation secondary to not taking his home lasix. He was admitted to the hospital and started on IV lasix. He was seen by cardiology who agreed. His diuresis decreased as he was doing well. Today he is safe for discharge home on oral lasix and close follow up. He was instructed to stop taking medications only if instructed by his physicians. 31 minutes spent in preparation of this discharge Condition: Good - Instructions Diet, Activity, Other Instructions: low salt diet. Resume previous activity. Do not stop taking your medications unless instructed by your physicians. Referrals: Celeste Rosales MD [Staff Physician] - Ryan Matos MD [Staff Physician] - 1 Week Disposition: HOME - Home Medications Comprehensive Discharge Medication List: Ambulatory Orders RX: Ranolazine [Ranexa -] 500 mg PO BID 03/22/12 RX: L.acidoph,Paracasei, B.lactis [Probiotic] 1 each PO DAILY 09/04/16 RX: Multivitamin [Poly-Vitamin] 1 each PO DAILY 09/04/16 RX: Losartan Potassium [Cozaar] 25 mg PO DAILY 03/12/18 RX: Warfarin Sodium [Coumadin] 3 mg PO DAILY 03/12/18 RX: Ascorbic Acid [Vitamin C] 1,000 mg PO DAILY 03/13/18 RX: Cholecalciferol (Vitamin D3) [Vitamin D -] 2,000 unit PO DAILY 03/13/18 RX: Vit A/Vit C/Vit E/Zinc/Copper [Preservision Areds Tablet] 1 each PO DAILY RX: Ferrous Sulfate 325 mg PO DAILY 03/18/18 RX: Metoprolol Succinate [Toprol Xl] 12.5 mg PO DAILY 03/18/18 RX: Acetaminophen [Tylenol .Regular Strength -] 650 mg PO Q6H PRN tablet RX: Furosemide [Lasix -] 20 mg PO DAILY #30 tablet 08/08/18 RX: Rosuvastatin [Crestor -] 5 mg PO HS tablet 08/08/18
[2018-08-08 12:40] VITALS: BP 112/48; PULSE 50; TEMP 97.8
== END 2018-08-08 13:17 | disposition home or self-care (01) | DRG 291 ==
LOC: JER 14:26 → JERBED 17:09 → J7W 19:30 → OBSVTOIN 08-06 13:39
PROVIDERS: ADMIT Internal Medicine; ATTEND Internal Medicine
DX: I13.0 Hypertensive heart and chronic kidney disease with heart failure and stage 1 through stage 4 chronic kidney disease, or unspecified chronic kidney disease (principal); I50.33 Acute on chronic diastolic (congestive) heart failure; N17.9 Acute kidney failure, unspecified; J98.11 Atelectasis; I25.10 Atherosclerotic heart disease of native coronary artery without angina pectoris; E78.5 Hyperlipidemia, unspecified; Z96.643 Presence of artificial hip joint, bilateral; E87.70 Fluid overload, unspecified; I45.10 Unspecified right bundle-branch block; M48.00 Spinal stenosis, site unspecified; I48.2 Chronic atrial fibrillation; I27.20 Pulmonary hypertension, unspecified; N18.2 Chronic kidney disease, stage 2 (mild); I65.29 Occlusion and stenosis of unspecified carotid artery; J44.9 Chronic obstructive pulmonary disease, unspecified; D64.9 Anemia, unspecified; I07.1 Rheumatic tricuspid insufficiency; Z91.14 Patient's other noncompliance with medication regimen; Z87.442 Personal history of urinary calculi; Z87.891 Personal history of nicotine dependence; Z95.1 Presence of aortocoronary bypass graft; Z79.01 Long term (current) use of anticoagulants
CPT/HCPCS: 36415; 71045-TC-FY; 80048; 80053; 81003; 81015; 82550; 82553; 82607; 82728; 82746; 83540; 83735; 83880; 84100; 84484; 85025; 85027; 85610; 85730; 93005; 93010; 97116-GP; 97161-GP; 99284-25; G0378

== ENCOUNTER 2018-09-04 12:51 | Emergency (ER) | payer OTHER, MEDICARE ==
[2018-09-04 13:16] VITALS: BMI 25.7
--- NOTE | 2018-09-04 13:21 | PDOC ---
Attending Attestation - HPI HPI: 09/04/18 14:25 The patient is an 88-year-old male with past medical history significant for Afib (on Coumadin), HTN, HLD, CAD s/p stents, CABG, and CHF presents to the emergency department with shortness of breath. Per , the patients been having increased shortness of breath, with ELMORE during physical therapy, relief noted at rest. The patient reports informing Dr. Matos, who suggested that they follow up at the ER. Prior records indicated the patient was seen at the ER for similar complaints, was admitted for CHF exacerbation and discharged home with PO lasix. Denies fever, chills, chest pain, nausea, vomiting. Allergies: NKA Surgical history: Hemicolectomy for perforated cecum, appendectomy, cardiac stents, 2 vessel CABG, ORIF right forearm, left hip replacement (10 years ago), right hip replacement (2011). Social history: Former smoker, no past or present use of alcohol or recreational drug. PCP: Dr. Ryan Matos. - Medical Decision Making 09/04/18 14:26 Documentation prepared by Aster Levine, acting as medical biller coder for Elisa Hale MD. 09/04/18 15:[address] Matos. 09/04/18 15:[address] Matos. <Aster Levine - Last Filed: 09/04/18 15:11> - Resident Resident Name: Carmen Esposito - ED Attending Attestation I have performed the following: I have examined & evaluated the patient, The case was reviewed & discussed with the resident, I agree w/resident's findings & plan, Exceptions are as noted - Physicial Exam PE: 09/04/18 14:27 GENERAL: The patient is in no acute distress. ENT: Ears normal, nares patent, oropharynx clear without exudates. Moist mucous membranes. NECK: Normal range of motion, supple without lymphadenopathy, no JVD LUNGS: Breath sounds equal, diminished breath sounds at the bases HEART: Bradycardiac, no murmur ABDOMEN: Soft, nontender, normoactive bowel sounds. EXTREMITIES: Normal range of motion, no pitting edema. NEUROLOGICAL: Cranial nerves II through XII grossly intact. Normal speech. No focal neurological deficits. MUSCULOSKELETAL: Back non-tender to palpation, no CVA tenderness SKIN: Warm, Dry, normal turgor, no rashes or lesions noted. - Medical Decision Making 09/04/18 13:30 EKG - junctional rhythm, rate of 46 bpm, axis nml, intervals nml, no st elevation or depressions, t waves upright 09/04/18 14:28 Laboratory Tests 09/04/18 09/04/18 13:42 13:42 WBC 5.2 Hgb 9.5 L Hct 29.6 L Plt Count 160 PT with INR 87.60 H 09/04/18 16:00 Pt sent to the ER due to shortness of breath Pt Lasix was increased by PMD as an outpatient last week (he took 3 additional doses of Lasix 20mg) Pt denies chest pain or palpitations No cough or sputum production Doubt PE Pt INR 7 Bedside US - Dr Matos contacted. He will follow up with INR Pt asked to hold Coumadin tonight and tomorrow night Pt given Lasix 20mg IV Will discharge to home <Elisa Hale - Last Filed: 09/04/18 16:03>
[2018-09-04] MEDS ORDERED: FUROSEMIDE 40 MG/4 ML INJECTABLE VIAL IVPUSH ONE (13:35)
--- NOTE | 2018-09-04 13:41 | PDOC ---
History of Present Illness - General Chief Complaint: Shortness of Breath Stated Complaint: SOB Time Seen by Provider: 09/04/18 13:03 - History of Present Illness Initial Comments: 09/04/18 13:39 Patient is an 88 year old male with past medical history of HTN, HLD, A.fib (on coumadin), CAD (s/p CABG, s/p drug-eluting stent x1), diastolic CHF, presented with dyspnea on exertion since 5 days ago. Patient was previously admitted for CHF exacerbation where he was discharged on PO Lasix. One week ago, he consulted with Dr. Matos due to worsening ELMORE and was told to take extra 3 doses of Lasix. Patient reports intermittent ELMORE, but believes his ELMORE did not improve with the increased Lasix. Called Dr. Matos who told them to come to the ED. Patient also reports orthopnea, leg swelling. Denies headaches, dizziness, chest pain, palpitations, fevers, chills, abdominal pain, urinary symptoms. Past History - Past Medical History Allergies/Adverse Reactions: Allergies Allergy/AdvReac Type Severity Reaction Status Date / Time No Known Allergies Allergy Verified 09/04/18 13:16 Home Medications: Ambulatory Orders Ranolazine [Ranexa -] 500 mg PO BID 03/22/12 L.acidoph,Paracasei, B.lactis [Probiotic] 1 each PO DAILY 09/04/16 Multivitamin [Poly-Vitamin] 1 each PO DAILY 09/04/16 Losartan Potassium [Cozaar] 20 mg PO DAILY 03/12/18 Warfarin Sodium [Coumadin] 3 mg PO DAILY 03/12/18 Ascorbic Acid [Vitamin C] 1,000 mg PO DAILY 03/13/18 Cholecalciferol (Vitamin D3) [Vitamin D -] 2,000 unit PO DAILY 03/13/18 Vit A/Vit C/Vit E/Zinc/Copper [Preservision Areds Tablet] 1 each PO DAILY Ferrous Sulfate 325 mg PO DAILY 03/18/18 Metoprolol Succinate [Toprol Xl] 12.5 mg PO DAILY 03/18/18 Acetaminophen [Tylenol .Regular Strength -] 650 mg PO Q6H PRN tablet 03/21/18 Furosemide [Lasix -] 20 mg PO DAILY #30 tablet 08/08/18 Rosuvastatin [Crestor -] 5 mg PO ASDIR 09/04/18 Anemia: No Asthma: No Cancer: No Cardiac Disorders: Yes (CABG,CARDIAC STENT,ATRIAL FIBRILLATION) CVA: No COPD: No CHF: Yes Dementia: No Diabetes: No GI Disorders: Yes (C-DIFF, HX OF PERFORATED COLON AFTER HIP SURGERY) Disorders: (NEPHROLITHIASIS) HTN: Yes Hypercholesterolemia: Yes Liver Disease: No Seizures: No Thyroid Disease: No - Surgical History Abdominal Surgery: Yes (12/2011 hemicolectomy for perforated cecum) Appendectomy: Yes Cardiac Surgery: Yes (2 VESSEL CABG,CARDIAC STENT) Cholecystectomy: No Lung Surgery: No Neurologic Surgery: No Orthopedic Surgery: Yes (orif rt forearm; lt hip replacement 10 yrs ago; rt hip 2011) - Suicide/Smoking/Psychosocial Hx Smoking History: Never smoked Have you smoked in the past 12 months: No Number of Cigarettes Smoked Daily: 0 If you are a former smoker, when did you quit?: many years ago Cigars Per Day: 0 Information on smoking cessation initiated: No 'Breaking Loose' booklet given: 03/18/18 Hx Alcohol Use: No Drug/Substance Use Hx: No Substance Use Type: None Hx Substance Use Treatment: No Review of Systems - Review of Systems Constitutional: No: Chills, Fever, Loss of Appetite, Weakness HEENTM: No: Blurred Vision, Nose Congestion, Hearing Loss, Throat Pain Respiratory: Yes: Orthopnea, SOB with Exertion. No: Cough Cardiac (ROS): Yes: Edema. No: Chest Pain, Palpitations ABD/GI: No: Abdominal Distended, Constipated, Diarrhea : No: Burning, Dysuria Neurological: No: Numbness, Tingling, Weakness Hematologic/Lymphatic: Yes: Anemia. No: Easy Bleeding *Physical Exam - Vital Signs Last Vital Signs Temp Pulse Resp BP Pulse Ox 97.9 F 67 16 139/66 97 09/04/18 12:51 09/04/18 12:51 09/04/18 12:51 09/04/18 12:51 09/04/18 13:18 - Physical Exam General Appearance: Yes: Nourished, Appropriately Dressed, Other (not in acute distress) HEENT: positive: JASON, Normal ENT Inspection Neck: positive: Trachea midline, Normal Thyroid, Supple Respiratory/Chest: positive: Decreased Breath Sounds (bilateral bases, L>R), Crackles (L>R) Cardiovascular: positive: Regular Rhythm, Regular Rate, S1, S2. negative: Murmur Vascular Pulses: Dorsalis-Pedis (R): 2+, Doralis-Pedis (L): 2+ Gastrointestinal/Abdominal: positive: Normal Bowel Sounds, Soft. 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 Patient was previously admitted for CHF exacerbation where he was discharged on PO Lasix. General: awake, alert, oriented, not in acute distress, saturating well on room air Lungs: decreased breath sounds on bilateral bases, +crackles L>R Heart: Regular rate and rhythm, normal S1/S2, no m,r,g Abdomen: soft, nontender, mildly distended, NABS Ext: +1 pitting edema, bilateral, DDx include but not limited to CHF exacerbation, ACS, PNA, Anemia P: CXR, EKG CBC, CMP Trop, BNP PT/INR IV lasix 20mg 09/04/18 15:32 INR - 7.28 *DC/Admit/Observation/Transfer Diagnosis at time of Disposition: Elevated INR CHF (congestive heart failure) Qualifiers: Heart failure type: systolic Heart failure chronicity: unspecified Qualified Code(s): I50.20 - Unspecified systolic (congestive) heart failure - Discharge Dispostion Disposition: HOME Condition at time of disposition: Stable - Referrals Referrals: Ryan Matos MD [Primary Care Provider] - - Patient Instructions Printed Discharge Instructions: DI for Heart Failure, DI for Warfarin Therapy Additional Instructions: You were seen because you had shortness of breath while walking. This is likely because of your heart failure. Please take your Lasix everyday as prescribed. You were also noted to have elevated INR. Please follow-up at Dr. Matos's office on Sunday (Sep 04, 2018) to have your INR checked again. Do NOT take your coumadin until you have followed-up with Dr. Matos. Call 911 or go to the ED if with any worsening shortness of breath, chest pain, fevers, chills, bleeding or any new concerns. - Post Discharge Activity
[2018-09-04] MEDS ORDERED: FUROSEMIDE 40 MG/4 ML INJECTABLE VIAL ONE (13:48)
[2018-09-04 14:06] LABS: BASO % 1.1 % (0-2.0); EOS % 2.1 % (0-4.5); HEMATOCRIT 29.6 % (35.4-49); HEMOGLOBIN 9.5 GM/dL (11.7-16.9); MCH 31.1 pg (25.7-33.7); MCHC 32.3 g/dl (32.0-35.9); MEAN CELL VOLUME 96.2 fl (80-96); MEAN PLT VOLUME 7.9 fl (7.5-11.1); MONO % 7.9 % (3.8-10.2); NEUT % 76.9 % (42.8-82.8); PLATELET COUNT 160 K/MM3 (134-434); RBC 3.07 M/mm3 (4.00-5.60); RDW 15.6 % (11.9-15.9); WHITE BLOOD COUNT 5.2 K/mm3 (4.0-10.0)
[2018-09-04 14:17] LABS: PROTHROMBIN TIME (PATIENT) 87.6 SEC (9.7-13.0)
[2018-09-04 14:31] LABS: INR 7.28 (0.83-1.09)
[2018-09-04 15:03] LABS: ALBUMIN 3.6 g/dl (3.4-5.0); ANION GAP 11 MMOL/L (8-16); BLOOD UREA NITROGEN 45 mg/dL (7-18); CALCIUM 8.3 mg/dL (8.5-10.1); CHLORIDE 107 mmol/L (98-107); CO2 24 mmol/L (21-32); CREATININE 1.8 mg/dL (0.55-1.3); GLUCOSE,RANDOM 83 mg/dL (74-106); SGOT/AST 34 U/L (15-37); SGPT/ALT 23 U/L (13-61); SODIUM 142 mmol/L (136-145)
[2018-09-04 15:06] LABS: ALK PHOS 93 U/L (45-117); BILIRUBIN,TOTAL 0.6 mg/dL (0.2-1); N-TERMINAL BNP 3893 pg/ml (5-450)
[2018-09-04 16:43] VITALS: BP 130/60; PULSE 55; TEMP 98.1
--- NOTE | 2018-09-07 12:11 | EKG ---
Test Reason : Blood Pressure : / mmHG Vent. Rate : 046 BPM Atrial Rate : 416 BPM P-R Int : 000 ms QRS Dur : 104 ms QT Int : 482 ms P-R-T Axes : 000 066 002 degrees QTc Int : 421 ms JUNCTIONAL RHYTHM VS POSSIBLY ATRIAL FLUTTER WITH SLOW A:V CONDUCTION (SEE LEAD V2) CANNOT RULE OUT ANTERIOR INFARCT (CITED ON OR BEFORE 05-AUG-2018) ABNORMAL ECG WHEN COMPARED WITH ECG OF 05-AUG-2018 14:40, POSSIBILITY OF ATRIAL FLUTTER NOW PRESENT Confirmed by CHLOE VELAZQUEZ MD ([id number]) on 09/07/2018 12:11:23 PM Referred By: Confirmed By:CHLOE VELAZQUEZ MD
== END 2018-09-04 16:45 | disposition home or self-care (01) ==
LOC: JER 12:51
PROC: 3E033GC Introduction of Other Therapeutic Substance into Peripheral Vein, Percutaneous Approach (ICD-10-PCS; principal; 2018-09-04)
DX: I50.20 Unspecified systolic (congestive) heart failure (principal); D68.8 Other specified coagulation defects; I25.10 Atherosclerotic heart disease of native coronary artery without angina pectoris; I11.0 Hypertensive heart disease with heart failure; Z95.1 Presence of aortocoronary bypass graft; Z95.5 Presence of coronary angioplasty implant and graft; I48.91 Unspecified atrial fibrillation; Z79.01 Long term (current) use of anticoagulants; E78.5 Hyperlipidemia, unspecified; E78.00 Pure hypercholesterolemia, unspecified; Z87.442 Personal history of urinary calculi; Z96.643 Presence of artificial hip joint, bilateral; Z90.49 Acquired absence of other specified parts of digestive tract
CPT/HCPCS: 36415; 71045-TC-FY; 80053; 83880; 84484; 85025; 85610; 93005; 93010; 99284-25

== ENCOUNTER 2018-10-03 18:03 | Inpatient (IN) | payer OTHER, MEDICARE ==
--- NOTE | 2018-10-03 18:09 | PDOC ---
Rapid Medical Evaluation Chief Complaint: Shortness of Breath Medical Evaluation: Allergies Allergy/AdvReac Type Severity Reaction Status Date / Time No Known Allergies Allergy Verified 10/03/18 18:06 I have performed a brief in-person evaluation of this patient. The patient presents with a chief complaint of: Was visiting security controls assessor, Dr. Pham for checkup, was found to have pulse ox of 84% there and sent to ED for evaluation. Patient has CHF and has intermittent SOB, but denies noting any worsening in his SOB Pertinent physical exam findings: In NAD, lungs clear, 3+ edema BLE I have ordered the following: Labs, EKG, CXR The patient will proceed to the ED for further evaluation. 10/03/18 18:08
--- NOTE | 2018-10-03 20:50 | PDOC ---
History of Present Illness - General History Source: Patient Exam Limitations: No Limitations - History of Present Illness Initial Comments: 10/03/18 21:16 The patient is a 88 year old male with a significant past medical history of HTN , HLD, AFib (on coumadin), CAD (s/p CABG, s/p drug-eluting stent x1), diastolic CHF, who presents to the ED with shortness of breath and lower extremity swelling. The patient reports a productive cough of clear and yellow sputum for the past 3 weeks. He also reports shortness of breath on exertion and states he sleeps with two pillows at baseline. Patient was admitted in the ED several weeks ago for CHF exacerbation. Patient saw his PCP 3 days ago for lower extremity swelling and his dosage of lasix was increased from 2 tabs to 3 tabs. Patient saw his oncology transplant network manager earlier today to follow up and was sent to the ED for worsening lower extremity edema, shortness of breath and pulse ox of 84 in the office. Denies chest pain. Denies fever or chills. Denies dizziness, lightheadedness, or headache. Denies any other symptoms. Music Researcher: Dr. Rosales PCP: Dr. Matos <Jono Silverman - Last Filed: 10/03/18 21:16> <Sonia Nicole - Last Filed: 10/03/18 22:40> - General Chief Complaint: Shortness of Breath Stated Complaint: PCP SENT/SHORTNESS OF BREATH Time Seen by Provider: 10/03/18 20:49 Past History <Jono Silverman - Last Filed: 10/03/18 21:16> - Past Medical History Anemia: No Asthma: No Cancer: No Cardiac Disorders: Yes (CABG,CARDIAC STENT,ATRIAL FIBRILLATION) CVA: No COPD: No CHF: Yes Dementia: No Diabetes: No GI Disorders: Yes (C-DIFF, HX OF PERFORATED COLON AFTER HIP SURGERY) Disorders: (NEPHROLITHIASIS) HTN: Yes Hypercholesterolemia: Yes Liver Disease: No Seizures: No Thyroid Disease: No - Surgical History Abdominal Surgery: Yes (12/2011 hemicolectomy for perforated cecum) Appendectomy: Yes Cardiac Surgery: Yes (2 VESSEL CABG,CARDIAC STENT) Cholecystectomy: No Lung Surgery: No Neurologic Surgery: No Orthopedic Surgery: Yes (orif rt forearm; lt hip replacement 10 yrs ago; rt hip 2011) - Immunization History Immunization Up to Date: Yes - Suicide/Smoking/Psychosocial Hx Smoking History: Former smoker Have you smoked in the past 12 months: No Number of Cigarettes Smoked Daily: 0 If you are a former smoker, when did you quit?: 25YR Cigars Per Day: 0 Information on smoking cessation initiated: No 'Breaking Loose' booklet given: 03/18/18 Hx Alcohol Use: No Drug/Substance Use Hx: No Substance Use Type: None Hx Substance Use Treatment: No <Sonia Nicole - Last Filed: 10/03/18 22:40> - Past Medical History Allergies/Adverse Reactions: Allergies Allergy/AdvReac Type Severity Reaction Status Date / Time No Known Allergies Allergy Verified 10/03/18 18:06 Home Medications: Ambulatory Orders Ranolazine [Ranexa -] 500 mg PO BID 03/22/12 L.acidoph,Paracasei, B.lactis [Probiotic] 1 each PO DAILY 09/04/16 Multivitamin [Poly-Vitamin] 1 each PO DAILY 09/04/16 Losartan Potassium [Cozaar] 20 mg PO DAILY 03/12/18 Warfarin Sodium [Coumadin] 3 mg PO DAILY 03/12/18 Ascorbic Acid [Vitamin C] 1,000 mg PO DAILY 03/13/18 Cholecalciferol (Vitamin D3) [Vitamin D -] 2,000 unit PO DAILY 03/13/18 Vit A/Vit C/Vit E/Zinc/Copper [Preservision Areds Tablet] 1 each PO DAILY Ferrous Sulfate 325 mg PO DAILY 03/18/18 Metoprolol Succinate [Toprol Xl] 12.5 mg PO DAILY 03/18/18 Acetaminophen [Tylenol .Regular Strength -] 650 mg PO Q6H PRN tablet 03/21/18 Furosemide [Lasix -] 20 mg PO DAILY #30 tablet 08/08/18 Rosuvastatin [Crestor -] 5 mg PO ASDIR 09/04/18 Review of Systems - Review of Systems Able to Perform ROS?: Yes Comments:: 10/03/18 21:17 GENERAL/CONSTITUTIONAL: No fever or chills. No weakness. HEAD, EYES, EARS, NOSE AND THROAT: No change in vision. No ear pain or discharge. No sore throat. GASTROINTESTINAL: No nausea, vomiting, diarrhea or constipation. GENITOURINARY: No dysuria, frequency, or change in urination. CARDIOVASCULAR: No chest pain or shortness of breath. RESPIRATORY: + cough, shortness of breath. No wheezing, or hemoptysis. MUSCULOSKELETAL: + leg swelling. No neck or back pain. SKIN: No rash NEUROLOGIC: No headache, vertigo, loss of consciousness, or change in strength/ sensation. ENDOCRINE: No increased thirst. No abnormal weight change. HEMATOLOGIC/LYMPHATIC: No anemia, easy bleeding, or history of blood clots. ALLERGIC/IMMUNOLOGIC: No hives or skin allergy. All Other Systems: Reviewed and Negative <Jono Silverman - Last Filed: 10/03/18 21:16> *Physical Exam - Vital Signs Last Vital Signs Temp Pulse Resp BP Pulse Ox 97.6 F 68 16 104/42 L 98 10/03/18 18:06 10/03/18 18:06 10/03/18 18:06 10/03/18 18:06 10/03/18 18:06 - Physical Exam Comments: 10/03/18 21:17 Constitutional: Awake, alert, oriented. No acute distress. Head: Normocephalic. Atraumatic Eyes: PERRL. EOMI. Conjunctivae are not pale. ENT: Mucous membranes are moist and intact. Posterior pharynx without exudates or erythema. Uvula midline. Neck: Supple. Full ROM. No lymphadenopathy. Cardiovascular: Regular rate. Regular rhythm. S1, S2 regular. Distal pulses are 2+ and symmetric. Pulmonary/Chest: +rales and rhonchi at the left base. Rales at the right base. No wheezing. Abdominal: Soft and non-distended. There is no tenderness. No rebound, guarding or rigidity. No organomegaly. No palpable masses. Good bowel sounds. Back: No CVA tenderness. Musculoskeletal: + 3+ pitting edema bilaterally. No edema. No cyanosis. No clubbing. Full range of motion in all extremities. No calf tenderness or redness. Radial/pedal pulses are intact and 2+ bilaterally Skin: Skin is warm and dry. No petechiae. No purpura. Neurological: Alert and oriented to person, place, and time. Cranial nerves II -XII are grossly intact. Normal speech. Strength is grossly symmetric. No sensory deficits. Psychiatric: Good eye contact. Normal interaction, affect and behavior. <Jono Silverman - Last Filed: 10/03/18 21:16> - Vital Signs Last Vital Signs Temp Pulse Resp BP Pulse Ox 97.6 F 68 16 104/42 L 98 10/03/18 18:06 10/03/18 18:06 10/03/18 18:06 10/03/18 18:06 10/03/18 18:06 <Sonia Nicole - Last Filed: 10/03/18 22:40> Moderate Sedation - Procedure Monitoring Vital Signs: Procedure Monitoring Vital Signs Temperature 97.6 F 10/03/18 18:06 Pulse Rate 68 10/03/18 18:06 Respiratory Rate 16 10/03/18 18:06 Blood Pressure 104/42 L 10/03/18 18:06 O2 Sat by Pulse Oximetry (%) 98 10/03/18 18:06 <Jono Silverman - Last Filed: 10/03/18 21:16> - Procedure Monitoring Vital Signs: Procedure Monitoring Vital Signs Temperature 97.6 F 10/03/18 18:06 Pulse Rate 68 10/03/18 18:06 Respiratory Rate 16 10/03/18 18:06 Blood Pressure 104/42 L 10/03/18 18:06 O2 Sat by Pulse Oximetry (%) 98 10/03/18 18:06 <Sonia Nicole - Last Filed: 10/03/18 22:40> Heart Score/ECG Review - ECG Intrepretation Comment:: 10/03/18 22:38 junctional at 57, nl axis, nl interval, q waves septally that are age indeterminate, no acute st/t wave findings <Sonia Nicole - Last Filed: 10/03/18 22:40> ED Treatment Course - LABORATORY CBC & Chemistry Diagram: 10/03/18 20:36 10/03/18 20:36 - ADDITIONAL ORDERS Additional order review: 10/03/18 20:36 RBC 2.87 L MCV 96.0 MCHC 34.9 RDW 16.7 H MPV 8.5 Neutrophils % 65.0 Lymphocytes % 17.3 D Monocytes % 10.3 H Eosinophils % 6.0 H D Basophils % 1.4 <Jono Silverman - Last Filed: 10/03/18 21:16> - LABORATORY CBC & Chemistry Diagram: 10/03/18 20:36 10/03/18 20:36 <Sonia Nicole - Last Filed: 10/03/18 22:40> Medical Decision Making - Medical Decision Making 10/03/18 21:20 a/p: 88yo male sent from cards for eval of low pulse ox in the office -pt with cough x 2-3 weeks, increasing leg swelling and episodes of sob -no cp -concern for mild chf exacerbation -pulse ox 98 -will send labs, ekg, cxr -pt with increased dose of oral lasix to 60 without improvement in symptoms -suspect pt will need IV lasix -pt is nontoxic in appearance, but has le swelling and a wet cough during exam -rales on exam -will monitor and reassess 10/03/18 22:19 trop 0.03 bnp [id number] pleural effusion on cxr -will give iv lasix -will place in obs to [facility] 10/03/18 22:39 case discussed with Haseeb Nance from [facility] who accepts pt to service <Sonia Nicole - Last Filed: 10/03/18 22:40> *DC/Admit/Observation/Transfer - Attestations Scribe Attestion: 10/03/18 21:17 Documentation prepared by Jono Silverman, acting as medical staff services manager for Sonia Nicole DO <Jono Silverman - Last Filed: 10/03/18 21:16> - Discharge Dispostion Decision to Admit order: Yes - Attestations Physician Attestion: 10/03/18 22:22 I, Dr. Sonia Nicole DO, attest that this document has been prepared under my direction and personally reviewed by me in its entirety. I further attest, that it accurately reflects all work, treatment, procedures and medical decision -making performed by me. <Sonia Nicole - Last Filed: 10/03/18 22:40> Diagnosis at time of Disposition: SOB (shortness of breath), Congestive heart failure - Discharge Dispostion Condition at time of disposition: Fair - Referrals Referrals: Ryan Matos MD [Primary Care Provider] - - Patient Instructions - Post Discharge Activity
[2018-10-03 21:13] LABS: BASO % 1.4 % (0-2.0); HEMATOCRIT 27.6 % (35.4-49); HEMOGLOBIN 9.6 GM/dL (11.7-16.9); LYMPH % 17.3 % (8-40); MCH 33.5 pg (25.7-33.7); MCHC 34.9 g/dl (32.0-35.9); MEAN PLT VOLUME 8.5 fl (7.5-11.1); MONO % 10.3 % (3.8-10.2); PLATELET COUNT 193 K/MM3 (134-434); RBC 2.87 M/mm3 (4.00-5.60); RDW 16.7 % (11.9-15.9); WHITE BLOOD COUNT 4.6 K/mm3 (4.0-10.0)
[2018-10-03 21:36] LABS: ANION GAP 5 MMOL/L (8-16); BLOOD UREA NITROGEN 31 mg/dL (7-18); CALCIUM 8.2 mg/dL (8.5-10.1); CHLORIDE 106 mmol/L (98-107); CO2 28 mmol/L (21-32); CREATININE 1.4 mg/dL (0.55-1.3); GLUCOSE,RANDOM 126 mg/dL (74-106); N-TERMINAL BNP 3859.4 pg/ml (5-450); POTASSIUM 4.3 mmol/L (3.5-5.1); SODIUM 139 mmol/L (136-145)
[2018-10-03] MEDS ORDERED: FUROSEMIDE 40 MG/4 ML INJECTABLE VIAL IVPUSH ONE (22:17)
[2018-10-03] MEDS ORDERED: FUROSEMIDE 40 MG/4 ML INJECTABLE VIAL ONE (23:25)
--- NOTE | 2018-10-03 23:32 | HP ---
CHIEF COMPLAINT: Increased shortness of breath PCP: Dr. Matos Cardiology: Dr. Rosales HISTORY OF PRESENT ILLNESS: 88M with history of Atrial fibrillation (Coumadin), HFpEF, CAD s/p CABG (2 vessel) and LUIS EDUARDO, HTN, HLD, and prior nephrolithiasis who presented today with complaint of increasing shortness of breath and increasing lower extremity edema. Pt reports being seen by Dr. Matos regularly and has had his Lasix uptitrated within the past month. Per the pt and his family, the pt was originally taking 1 tab of Lasix which increased to 2 and finally up to 3 due to this increased work of breathing within the past 3 days. Pt reports being seen by Dr. Rosales today who recommended to be seen in the ER. Pt reports sleeping with 2 pillows at night and having a wet, nonproductive cough lately. He also endorses resolving a viral URI lately (with symptoms notable for clear rhinorrhea and sore throat). Pt denies any headaches, lightheadedness, palpitations, chest pain, abdominal pain, flank pain, difficulties with urination, hematuria. Of note pt reports being roughly around 189lbs per his scale at home and does weigh himself daily. ER course was notable for: (1) Lasix 40mg IVP once (2) CXR showing pleural effusions b/l Recent Travel: Denies PAST MEDICAL HISTORY: Atrial fibrillation (Coumadin), HFpEF, CAD s/p CABG (2 vessel) and LUIS EDUARDO, HTN, HLD PAST SURGICAL HISTORY: L Hip replacement (10 years prior) R hip replacement (2011) Hemicolectomy 12/2011 CABG 2vessel replacement ORIF R forearm Social History: Smoking: Former; quit 25 years ago Alcohol: Denies Drugs: Denies Lives at home with ; walks with cane; no oxygen use at home Allergies No Known Allergies Allergy (Verified 10/03/18 18:06) HOME MEDICATIONS: Home Medications Medication Instructions Recorded Ranolazine [Ranexa -] 500 mg PO BID 03/22/12 L.acidoph,Paracasei, B.lactis 1 each PO DAILY 09/04/16 [Probiotic] Multivitamin [Poly-Vitamin] 1 each PO DAILY 09/04/16 Losartan Potassium [Cozaar] 20 mg PO DAILY 03/12/18 Warfarin Sodium [Coumadin] 3 mg PO DAILY 03/12/18 Ascorbic Acid [Vitamin C] 1,000 mg PO DAILY 03/13/18 Cholecalciferol (Vitamin D3) 2,000 unit PO DAILY 03/13/18 [Vitamin D -] Vit A/Vit C/Vit E/Zinc/Copper 1 each PO DAILY 03/13/18 [Preservision Areds Tablet] Ferrous Sulfate 325 mg PO DAILY 03/18/18 Metoprolol Succinate [Toprol Xl] 12.5 mg PO DAILY 03/18/18 Acetaminophen [Tylenol .Regular 650 mg PO Q6H PRN tablet 03/21/18 Strength -] Furosemide [Lasix -] 20 mg PO DAILY #30 tablet 08/08/18 Rosuvastatin [Crestor -] 5 mg PO ASDIR 09/04/18 REVIEW OF SYSTEMS As per HPI PHYSICAL EXAMINATION Vital Signs - 24 hr 10/03/18 18:06 Temperature 97.6 F Pulse Rate 68 Respiratory 16 Rate Blood Pressure 104/42 L O2 Sat by Pulse 98 Oximetry (%) GENERAL: NAD, awake, alert, and fully oriented, sitting at bedside HEENT: NC/AT, EOMI, TAYLOR, no periorbital edema, MMM NECK: No JVD LUNGS: Rales bilaterally at the bases. No wheezes. No accessory muscle use. On RA HEART: RRR, normal S1 and S2 with 2/6 systolic ejection murmur at the LLSB ABDOMEN: Soft, NT/ND, normoactive bowel sounds, no guarding MUSCULOSKELETAL: No CVA tenderness. EXTREMITIES: 2+ DP pulses, warm, well-perfused.2+ pitting edema to the mid leg. Chronic venous changes noted at the ankle PSYCHIATRIC: Cooperative. Good eye contact. Appropriate mood and affect. SKIN: Warm, dry, no rashes or lesions noted Laboratory Results - last 24 hr 10/03/18 10/03/18 10/03/18 20:36 20:36 20:36 WBC 4.6 RBC 2.87 L Hgb 9.6 L Hct 27.6 L MCV 96.0 MCH 33.5 MCHC 34.9 RDW 16.7 H Plt Count 193 D MPV 8.5 Absolute Neuts (auto) 3.0 Neutrophils % 65.0 Lymphocytes % 17.3 D Monocytes % 10.3 H Eosinophils % 6.0 H D Basophils % 1.4 Nucleated RBC % 0 Sodium 139 Potassium 4.3 Chloride 106 Carbon Dioxide 28 Anion Gap 5 L BUN 31 H Creatinine 1.4 H Creat Clearance w eGFR 47.72 Random Glucose 126 H Calcium 8.2 L Magnesium 2.0 Creatine Kinase 189 Creatine Kinase Index 2.3 CK-MB (CK-2) 4.4 H Troponin I 0.03 B-Natriuretic Peptide 3859.4 H ECG - Atrial fib vs. flutter @57bpm, Normal axis, normal R-wave progression, junctional rhythm. Unchanged from prior EKG found in EMR. 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 Visit type - Emergency Visit Emergency Visit: Yes ED Registration Date: 10/03/18 Care time: The patient presented to the Emergency Department on the above date and was hospitalized for further evaluation of their emergent condition. - New Patient This patient is new to me today: Yes Date on this admission: 10/04/18 - Critical Care Critical Care patient: No
--- NOTE | 2018-10-04 01:58 | PN ---
Teaching Attending Note Name of Resident: Moon Nance ATTENDING PHYSICIAN STATEMENT I saw and evaluated the patient. I reviewed the resident's note and discussed the case with the resident. I agree with the resident's findings and plan as documented. SUBJECTIVE: Patient is an 88 year old man with a PMH of HTN, bilateral hisp replcement, colectomy, HLD, AFib (on coumadin), CAD (s/p CABG, s/p drug-eluting stent x1), diastolic CHF, who presents to the ER with shortness of breath and lower extremity swelling. The patient reports a productive cough of clear and yellow sputum for the past 3 weeks. He also reports shortness of breath on exertion and states he sleeps with two pillows at baseline. Patient was admitted in the ED several weeks ago for CHF exacerbation. Patient saw his PCP 3 days ago for lower extremity swelling and his dosage of lasix was increased from 2 tabs to 3 tabs. Patient saw his matrix bath operator earlier today to follow up and was sent to the ED for worsening lower extremity edema, shortness of breath and pulse ox of 84 in the office. Denies chest pain, fever or chills. Recently had a URI along with other family members. OBJECTIVE: Alert Vital Signs Period Temp Pulse Resp BP Sys/Ascencio Pulse Ox Last 24 Hr 97.6 F 68 16 104/42 98 HEENT: No Jaundice, eye redness or discharge, PERRLA, EOMI. Normocephalic, atraumatic. External ears are normal and hearing is grossly intact. No nasal discharge. Neck: Supple, nontender. No palpable adenopathy or thyromegaly. No JVD Chest: Good effort. Bibasilar rales. Clear to percussion. Heart: Regular. No S3 or rub. 2/6 SOFIE Abdomen: Not distended, soft, nontender and no HSM. No rebound or guarding. Normoactive bowel sounds. Ext: Peripheral pulses intact. Leg edema with stasis dermatitis changes. Skin: Warm and dry. No petechiae, rash or ecchymosis. Neuro: Alert. Oriented x3. CN 2-12 grossly intact. Sensation grossly intact in all four extremities and DTR are symmetric. Current Medications Generic Name Dose Route Start Last Admin Trade Name Freq PRN Reason Stop Dose Admin Furosemide 40 mg 10/04/18 10:00 Lasix - PO DAILY JAYCE Losartan Potassium 25 mg 10/04/18 10:00 Cozaar - PO DAILY [facility] Metoprolol Succinate 12.5 mg 10/04/18 10:00 Toprol Xl - PO DAILY [facility] Ranolazine 500 mg 10/04/18 10:00 Ranexa - PO BID [facility] Warfarin Sodium 3 mg 10/04/18 18:00 Coumadin - PO 1800 [facility] Home Medications Medication Instructions Recorded Ranolazine [Ranexa -] 500 mg PO BID 03/22/12 L.acidoph,Paracasei, B.lactis 1 each PO DAILY 09/04/16 [Probiotic] Multivitamin [Poly-Vitamin] 1 each PO DAILY 09/04/16 Losartan Potassium [Cozaar] 20 mg PO DAILY 03/12/18 Warfarin Sodium [Coumadin] 3 mg PO DAILY 03/12/18 Ascorbic Acid [Vitamin C] 1,000 mg PO DAILY 03/13/18 Cholecalciferol (Vitamin D3) 2,000 unit PO DAILY 03/13/18 [Vitamin D -] Vit A/Vit C/Vit E/Zinc/Copper 1 each PO DAILY 03/13/18 [Preservision Areds Tablet] Ferrous Sulfate 325 mg PO DAILY 03/18/18 Metoprolol Succinate [Toprol Xl] 12.5 mg PO DAILY 03/18/18 Acetaminophen [Tylenol .Regular 650 mg PO Q6H PRN tablet 03/21/18 Strength -] Furosemide [Lasix -] 20 mg PO DAILY #30 tablet 08/08/18 Rosuvastatin [Crestor -] 5 mg PO ASDIR 09/04/18 Abnormal Lab Results 10/03/18 10/03/18 20:36 20:36 RBC 2.87 L Hgb 9.6 L Hct 27.6 L RDW 16.7 H Monocytes % 10.3 H Eosinophils % 6.0 H D Anion Gap 5 L BUN 31 H Creatinine 1.4 H Random Glucose 126 H Calcium 8.2 L CK-MB (CK-2) 4.4 H B-Natriuretic Peptide 3859.4 H ASSESSMENT AND PLAN: 1. CHF exacerbation - Likely partly due to recent URI, anemia and/or poor dosing of his diuretics. No evidence of ACS at this time. Will treat with appropriate/effective dose of IV lasix, monitor standing weight and restrict dietary salt intake. Continue coumadin for afib. 2. Anemia - May be partly due to CKD. Needs to be worked up and corrected since it may be exacerbating CHF symptoms. Do basic anemia work up including serial stool guaiacs, reticulocyte count and iron studies. Would benefit from colonoscopy. 3. CKD - Cause unclear. Needs basic nephrologic workup - kidney sonogram, PTH, phosphate. Avoid nephrotoxic agents such as NSAIDS, aminoglycosides, contrast dyes and certain Alternative medicine products. 4. DVT prophylaxis - On coumadin 5. Advance directives - Full code
[2018-10-04 04:34] LABS: INR 1.34 (0.83-1.09); PROTHROMBIN TIME (PATIENT) 15.9 SEC (9.7-13.0)
--- NOTE | 2018-10-04 09:59 | PN ---
Progress Note (short form) - Note Progress Note: PATIENT FINANCIAL SPECIALIST Thad/ Hospitalist to document today. Marked pedal edema and coughing; await Cardiology F/U. Disappointing 6 months with multiple admissions and overall fatigue and weakness. INR 1.34 To Rx 6mg Coumadin today
[2018-10-04] MEDS ORDERED: LOSARTAN POTASSIUM 25 MG TABLET PO SCH (10:00)
[2018-10-04] MEDS ORDERED: FUROSEMIDE 40 MG TABLET (FP) PO SCH (10:00)
[2018-10-04] MEDS: LOSARTAN POTASSIUM 25 MG TABLET PO SCH (10:48)
--- NOTE | 2018-10-04 10:48 | CON.CARD ---
Consult Consult Specialty:: Cardiology Referred by:: Ryan Matos MD Reason for Consultation:: Diastolic failure - History of Present Illness Chief Complaint: Dyspnea and LE edema History of Present Illness: Patient is an 88 year old male with history of CAD s/p CABG (JHAVERI to mLAD, SVG to RPDA), s/p PCI/LUIS EDUARDO to LAD, persistent AF on Coumadin, diastolic dysfunction with h/o failure, HTN, hypercholesterolemia and carotid stenosis who presents with shortness of breath on exertion, lower extremity swelling, productive cough , hypoxia 84% and two pillow orthopnea at baseline despite outpatient uptitration of diuretic regimen. He denies associated chest pain, near or true syncope, palpitations, PND, diet or medication indiscretion. - History Source History Provided By: Patient Limitations to Obtaining History: No Limitations - Past Medical History Cardio/Vascular: Yes: AFIB, CAD, CHF, HTN, Hyperlipdemia Renal/: Yes: Renal Inusuff Musculoskeletal: Yes: Other (spinal stenosis) - Past Surgical History Past Surgical History: Yes: CABG, Colectomy, Hernia Repair, Joint Replacement (b /l hip replacement ORIF right arm), Stent - Alcohol/Substance Use Hx Alcohol Use: No History of Substance Use: reports: None - Smoking History Smoking history: Former smoker Have you smoked in the past 12 months: No Aproximately how many cigarettes per day: 0 If you are a former smoker, when did you quit?: 25YR - Social History ADL: Independent History of Recent Travel: No Home Medications - Allergies Allergies/Adverse Reactions: Allergies Allergy/AdvReac Type Severity Reaction Status Date / Time No Known Allergies Allergy Verified 10/03/18 18:06 - Home Medications Home Medications: Ambulatory Orders Ranolazine [Ranexa -] 500 mg PO BID 03/22/12 L.acidoph,Paracasei, B.lactis [Probiotic] 1 each PO DAILY 09/04/16 Multivitamin [Poly-Vitamin] 1 each PO DAILY 09/04/16 Losartan Potassium [Cozaar] 20 mg PO DAILY 03/12/18 Warfarin Sodium [Coumadin] 3 mg PO DAILY 03/12/18 Ascorbic Acid [Vitamin C] 1,000 mg PO DAILY 03/13/18 Cholecalciferol (Vitamin D3) [Vitamin D -] 2,000 unit PO DAILY 03/13/18 Vit A/Vit C/Vit E/Zinc/Copper [Preservision Areds Tablet] 1 each PO DAILY Ferrous Sulfate 325 mg PO DAILY 03/18/18 Metoprolol Succinate [Toprol Xl] 12.5 mg PO DAILY 03/18/18 Acetaminophen [Tylenol .Regular Strength -] 650 mg PO Q6H PRN tablet 03/21/18 Furosemide [Lasix -] 20 mg PO DAILY #30 tablet 08/08/18 Rosuvastatin [Crestor -] 5 mg PO ASDIR 09/04/18 Family Disease History - Family Disease History Family Disease History: Heart Disease: Mother, Brother, Other: Father Review of Systems - Review of Systems Cardiovascular: reports: Edema Respiratory: reports: Exercise Intolerance, Orthopnea, SOB, SOB on Exertion Vital Signs: Vital Signs Temperature 97.7 F 10/04/18 06:40 Pulse Rate 93 H 10/04/18 06:40 Respiratory Rate 17 10/04/18 06:40 Blood Pressure 127/86 10/04/18 06:40 O2 Sat by Pulse Oximetry (%) 98 10/04/18 06:40 Constitutional: Yes: No Distress, Calm Neck: Yes: Supple Respiratory: Yes: Regular, Diminished, On Nasal O2, SOB on Exertion Gastrointestinal: Yes: Normal Bowel Sounds, Soft Cardiovascular: Yes: Regular Rate and Rhythm JVD: No Carotid Bruit: No Heart Sounds: Yes: S1, S2 Murmur: Yes: Systolic Murmur, Grade 2 Edema: Yes Edema: LLE: 1+, RLE: 1+ - Other Data Labs, Other Data: CBC, BMP 10/03/18 20:36 10/03/18 20:36 INR, PTT INR 1.34 (0.83-1.09) H 10/04/18 04:06 Troponin, BNP 10/03/18 20:36 Troponin I 0.03 B-Natriuretic Peptide 3859.4 H Troponin, BNP 10/03/18 20:36 Troponin I 0.03 B-Natriuretic Peptide 3859.4 H Afib @ [address]-T changes Echo: Report Reviewed Ejection Fraction %: LVEF > or = 40 % Imaging - Results Chest X-ray: Report Reviewed (Bibasilar pleural effusions) Problem List - Problems (1) Acute on chronic diastolic (congestive) heart failure Code(s): I50.33 - ACUTE ON CHRONIC DIASTOLIC (CONGESTIVE) HEART FAILURE (2) Atrial fibrillation Code(s): I48.91 - UNSPECIFIED ATRIAL FIBRILLATION Qualifiers: Atrial fibrillation type: permanent Qualified Code(s): I48.2 - Chronic atrial fibrillation (3) CAD (coronary artery disease) Code(s): I25.10 - ATHSCL HEART DISEASE OF [place] CORONARY ARTERY W/O ANG PCTRS Qualifiers: Coronary Disease-Associated Artery/Lesion type: [place] artery [place] vs. transplanted heart: [place] heart Associated angina: without angina Qualified Code(s): I25.10 - Atherosclerotic heart disease of [place] coronary artery without angina pectoris (4) CKD (chronic kidney disease) Code(s): N18.9 - CHRONIC KIDNEY DISEASE, UNSPECIFIED Qualifiers: Chronic kidney disease stage: stage 2 (mild) Qualified Code(s): N18.2 - Chronic kidney disease, stage 2 (mild) (5) COPD (chronic obstructive pulmonary disease) Code(s): J44.9 - CHRONIC OBSTRUCTIVE PULMONARY DISEASE, UNSPECIFIED Qualifiers: COPD type: unspecified COPD Qualified Code(s): J44.9 - Chronic obstructive pulmonary disease, unspecified (6) Chronic anticoagulation Code(s): Z79.01 - TIME CLERK (CURRENT) USE OF ANTICOAGULANTS (7) Edema of both legs Code(s): R60.0 - LOCALIZED EDEMA (8) HTN (hypertension) Code(s): I10 - ESSENTIAL (PRIMARY) HYPERTENSION Qualifiers: Hypertension type: essential hypertension Qualified Code(s): I10 - Essential (primary) hypertension (9) Hx of CABG Code(s): Z95.1 - PRESENCE OF AORTOCORONARY BYPASS GRAFT (10) Hyperlipidemia Code(s): E78.5 - HYPERLIPIDEMIA, UNSPECIFIED Qualifiers: Hyperlipidemia type: pure hypercholesterolemia Qualified Code(s): E78.00 - Pure hypercholesterolemia, unspecified; E78.0 - Pure hypercholesterolemia (11) Pulmonary hypertension Code(s): I27.2 - OTHER SECONDARY PULMONARY HYPERTENSION * DO NOT USE * (12) Status post insertion of drug-eluting stent into left anterior descending ( LAD) artery Code(s): Z95.5 - PRESENCE OF CORONARY ANGIOPLASTY IMPLANT AND GRAFT Assessment/Plan 01/10/2018 Normal LV size with low normal LV fxn, normal RV size and fxn, severe AUTUMN, mild-mod MR, mod-severe TR RVSP 31 mmHg 11/16/2017 Echo: Normal LV size and fxn LVEF 55-60%, severe AUTUMN, mild decreased RV fxn with mod dilatation, mild MR, mod-severe TR RVSP 46 mmHg 11/07/2016 P-Myoview: No ischmeia, LVEF 69% 1. Acute on chronic LV diastolic failure with moderate to severe TR and noncompliant with medication 2. CAD s/p CABG and PCI/LUIS EDUARDO, angina 3. Permanent atrial fibrillation [id number] with subtherapeutic INR 4. HTN/HCVD 5. Hypercholesterolemia 6. COPD 7. Anemia 8. Acute on CKD 9. Moderate carotid stenosis PLAN: 1. IV diuresis with monitor diuretic response, renal fxn and electrolytes 2. Continue Losartan 25 qd, Toprol XL 12.5 qd, Ranexa 500 bid and Crestor 5 qd 3. Increase Coumadin dose per INR 4. Outpatient f/u in office with Dr. Rosales , emphasize importance of medication and diet compliance 5. Thank you for consultative opportunity
[2018-10-04] MEDS: metoPROLOL SUCCINATE 25 MG TAB.SR.24H (FP) PO SCH (10:49)
[2018-10-04] MEDS: RANOLAZINE E.R. 500 MG TABLET (FP) PO SCH ×2 (10:49→21:06)
[2018-10-04 11:21] LABS: HEMATOCRIT 28.9 % (35.4-49); HEMOGLOBIN 9.7 GM/dL (11.7-16.9); MCH 32.6 pg (25.7-33.7); MCHC 33.7 g/dl (32.0-35.9); MEAN CELL VOLUME 96.8 fl (80-96); MEAN PLT VOLUME 7.7 fl (7.5-11.1); PLATELET COUNT 208 K/MM3 (134-434); RBC 2.98 M/mm3 (4.00-5.60); RDW 16.8 % (11.9-15.9); WHITE BLOOD COUNT 5.1 K/mm3 (4.0-10.0)
--- NOTE | 2018-10-04 11:26 | EKG ---
Test Reason : Blood Pressure : / mmHG Vent. Rate : 057 BPM Atrial Rate : 066 BPM P-R Int : 000 ms QRS Dur : 100 ms QT Int : 454 ms P-R-T Axes : 000 084 000 degrees QTc Int : 441 ms POOR DATA QUALITY, INTERPRETATION MAY BE ADVERSELY AFFECTED JUNCTIONAL RHYTHM ABNORMAL ECG WHEN COMPARED WITH ECG OF 04-SEP-2018 13:15, NO SIGNIFICANT CHANGE WAS FOUND Confirmed by CARRILLO BASHIR, JA ([id number]) on 10/04/2018 11:26:01 AM Referred By: Confirmed By:JA VIZCAINO MD
[2018-10-04 12:01] LABS: GLUCOSE,RANDOM 94 mg/dL (74-106)
[2018-10-04 12:02] LABS: BLOOD UREA NITROGEN 32 mg/dL (7-18); CHLORIDE 106 mmol/L (98-107); CREATININE 1.3 mg/dL (0.55-1.3); POTASSIUM 4.3 mmol/L (3.5-5.1); SODIUM 141 mmol/L (136-145)
[2018-10-04 12:03] LABS: ANION GAP 7 MMOL/L (8-16); CALCIUM 8.8 mg/dL (8.5-10.1); CO2 28 mmol/L (21-32)
[2018-10-04] MEDS ORDERED: FUROSEMIDE 40 MG/4 ML INJECTABLE VIAL IVPUSH ONE ×2 (13:18→14:00)
--- NOTE | 2018-10-04 14:19 | PN ---
Teaching Attending Note Name of Resident: Paige Rollins ATTENDING PHYSICIAN STATEMENT I saw and evaluated the patient. I reviewed the resident's note and discussed the case with the resident. I agree with the resident's findings and plan as documented. SUBJECTIVE: Patient reports SOB is improving. OBJECTIVE: Vital Signs Period Temp Pulse Resp BP Sys/Ascencio Pulse Ox Last 24 Hr 97.6 F-97.8 F 68-93 16-17 104-127/42-86 98-98 HEART: Irregular, (+) JVD LUNGS: Bibasilar rales ABDOMEN: Soft, non-tender, non-distended, normal BS EXTREMITIES: 1+ edema Laboratory Results - last 24 hr 10/03/18 10/03/18 10/03/18 20:36 20:36 20:36 WBC 4.6 RBC 2.87 L Hgb 9.6 L Hct 27.6 L MCV 96.0 MCH 33.5 MCHC 34.9 RDW 16.7 H Plt Count 193 D MPV 8.5 Absolute Neuts (auto) 3.0 Neutrophils % 65.0 Lymphocytes % 17.3 D Monocytes % 10.3 H Eosinophils % 6.0 H D Basophils % 1.4 Nucleated RBC % 0 PT with INR INR Sodium 139 Potassium 4.3 Chloride 106 Carbon Dioxide 28 Anion Gap 5 L BUN 31 H Creatinine 1.4 H Creat Clearance w eGFR 47.72 Random Glucose 126 H Calcium 8.2 L Magnesium 2.0 Creatine Kinase 189 Creatine Kinase Index 2.3 CK-MB (CK-2) 4.4 H Troponin I 0.03 B-Natriuretic Peptide 3859.4 H 10/04/18 10/04/18 10/04/18 04:06 10:50 10:50 WBC 5.1 RBC 2.98 L Hgb 9.7 L Hct 28.9 L MCV 96.8 H MCH 32.6 MCHC 33.7 RDW 16.8 H Plt Count 208 MPV 7.7 Absolute Neuts (auto) Neutrophils % Lymphocytes % Monocytes % Eosinophils % Basophils % Nucleated RBC % PT with INR 15.90 H INR 1.34 H Sodium 141 Potassium 4.3 Chloride 106 Carbon Dioxide 28 Anion Gap 7 L BUN 32 H Creatinine 1.3 Creat Clearance w eGFR 51.98 Random Glucose 94 Calcium 8.8 Magnesium Creatine Kinase Creatine Kinase Index CK-MB (CK-2) Troponin I B-Natriuretic Peptide Current Medications Generic Name Dose Route Start Last Admin Trade Name Freq PRN Reason Stop Dose Admin Furosemide 40 mg 10/05/18 10:00 Lasix Injection - IVPUSH DAILY JAYCE Losartan Potassium 25 mg 10/04/18 10:00 10/04/18 10:48 Cozaar - PO 25 mg DAILY JAYCE Administration Metoprolol Succinate 12.5 mg 10/04/18 10:00 10/04/18 10:49 Toprol Xl - PO 12.5 mg DAILY JAYCE Administration Ranolazine 500 mg 10/04/18 10:00 10/04/18 10:49 Ranexa - PO 500 mg BID JAYCE Administration Rosuvastatin Calcium 5 mg 10/04/18 22:00 Crestor - PO HS JAYCE Warfarin Sodium 3 mg 10/04/18 18:00 Coumadin - PO 1800 JAYCE Warfarin Sodium 6 mg 10/04/18 18:00 Coumadin - PO 10/04/18 18:01 ONCE@1800 ONE ASSESSMENT AND PLAN: This is an 88 year old man with a history of chronic diastolic heart failure, HTN, hyperlipidemia, COPD, anemia, stage 3 CKD, carotid stenosis, permanent atrial fib, CAD, CABG, PCI/LUIS EDUARDO who was sent to the ED for shortness of breath. 1. Acute on chronic diastolic heart failure - Continue Lasix IV - Oxygen to maintain saturation >90% - Monitor I&O, weight 2. Hypertension - Continue Cozaar, Toprol XL, Lasix 3. Hyperlipidemia - Continue Crestor 4. Permanent atrial fib - Rate controlled - Continue Toprol XL - Adjust Coumadin based on INR 5. Stage 3 CKD - Monitor BUN, creatinine with diuresis 6. Anemia - Likely secondary to chronic illness - Hemoglobin stable 7. COPD - Stable 8. CAD, history of CABG, PCI with LUIS EDUARDO - Continue Toprol XL, Ranexa, Crestor 9. Tricuspid regurgitation, moderate to severe
[2018-10-04] MEDS ORDERED: FUROSEMIDE 40 MG/4 ML INJECTABLE VIAL ONE (14:29)
--- NOTE | 2018-10-04 16:18 | PN ---
Physical Exam: SUBJECTIVE: Patient seen and examined at bed side this morning. Patient was returning from the bathroom, ambulates with a cane, shortness of breath-mild. Denies chest pain, palpitations, abdominal pain, nausea or vomiting. BM today. Bladder habit normal. Sleep/Appetite normal. OBJECTIVE: Vital Signs Period Temp Pulse Resp BP Sys/Ascencio Pulse Ox Last 24 Hr 97.6 F-98.1 F 68-93 16-18 101-127/42-86 98-100 GENERAL: Elderly male, sitting comfortably in bed, is awake, alert, and fully oriented, in mild respiratory distress. HEAD: Normal with no signs of trauma. EYES: EOM intact, no pallor or icterus. ENT: Ears normal, moist mucous membranes. NECK: Supple, JVD +, lipoma in the back of the neck. LUNGS: Breath sounds equal, bibasilar crackles. HEART: Tachycardic, Regular rate and rhythm, S1, S2 with soft systolic murmur. ABDOMEN: Soft, nontender, no organomegaly. EXTREMITIES: UPPER EXT: 2+ pulses, warm, well-perfused, no edema. LOWER EXT: 2+ pulses, warm, well-perfused, B/L pitting edema up to mid calf. NEUROLOGICAL: No facial droop, power 5/5 in all extremities. Cranial nerves II through XII grossly intact. Normal speech, ambulates with a cane. PSYCH: Normal mood, normal affect. SKIN: Warm, dry, normal turgor, no rashes or lesions noted Laboratory Results - last 24 hr 10/03/18 10/03/18 10/03/18 20:36 20:36 20:36 WBC 4.6 RBC 2.87 L Hgb 9.6 L Hct 27.6 L MCV 96.0 MCH 33.5 MCHC 34.9 RDW 16.7 H Plt Count 193 D MPV 8.5 Absolute Neuts (auto) 3.0 Neutrophils % 65.0 Lymphocytes % 17.3 D Monocytes % 10.3 H Eosinophils % 6.0 H D Basophils % 1.4 Nucleated RBC % 0 PT with INR INR Sodium 139 Potassium 4.3 Chloride 106 Carbon Dioxide 28 Anion Gap 5 L BUN 31 H Creatinine 1.4 H Creat Clearance w eGFR 47.72 Random Glucose 126 H Calcium 8.2 L Magnesium 2.0 Creatine Kinase 189 Creatine Kinase Index 2.3 CK-MB (CK-2) 4.4 H Troponin I 0.03 B-Natriuretic Peptide 3859.4 H 10/04/18 10/04/18 10/04/18 04:06 10:50 10:50 WBC 5.1 RBC 2.98 L Hgb 9.7 L Hct 28.9 L MCV 96.8 H MCH 32.6 MCHC 33.7 RDW 16.8 H Plt Count 208 MPV 7.7 Absolute Neuts (auto) Neutrophils % Lymphocytes % Monocytes % Eosinophils % Basophils % Nucleated RBC % PT with INR 15.90 H INR 1.34 H Sodium 141 Potassium 4.3 Chloride 106 Carbon Dioxide 28 Anion Gap 7 L BUN 32 H Creatinine 1.3 Creat Clearance w eGFR 51.98 Random Glucose 94 Calcium 8.8 Magnesium Creatine Kinase Creatine Kinase Index CK-MB (CK-2) Troponin I B-Natriuretic Peptide Active Medications Generic Name Dose Route Start Last Admin Trade Name Freq PRN Reason Stop Dose Admin Losartan Potassium 25 mg 10/04/18 10:00 10/04/18 10:48 Cozaar - PO 25 mg DAILY JAYCE Administration Metoprolol Succinate 12.5 mg 10/04/18 10:00 10/04/18 10:49 Toprol Xl - PO 12.5 mg DAILY JAYCE Administration Ranolazine 500 mg 10/04/18 10:00 10/04/18 10:49 Ranexa - PO 500 mg BID JAYCE Administration Rosuvastatin Calcium 5 mg 10/04/18 22:00 Crestor - PO HS JAYCE Warfarin Sodium 3 mg 10/04/18 18:00 Coumadin - PO 1800 JAYCE Warfarin Sodium 6 mg 10/04/18 18:00 Coumadin - PO 10/04/18 18:01 ONCE@1800 ONE 01/10/2018 Normal LV size with low normal LV fxn, normal RV size and fxn, severe AUTUMN, mild-mod MR, mod-severe TR RVSP 31 mmHg 11/16/2017 Echo: Normal LV size and fxn LVEF 55-60%, severe AUTUMN, mild decreased RV fxn with mod dilatation, mild MR, mod-severe TR RVSP 46 mmHg 11/07/2016 P-Myoview: No ischmeia, LVEF 69% ASSESSMENT/PLAN: Patient is an 88 year old male with significant Past Medical hx of dCHF, HTN, HLD, COPD, Anemia, Acute on chronic CKD, moderate carotid stenosis, Permanent Atrial fib, CAD s/p CABG and PCI/LUIS EDUARDO angina was sent by his director telecommunications (Dr. Guardado) due to shortness of breath. # Shortness of breath likely secondary to CHF exacerbation Unlikely infectious cause of SOB. Takes Lasix 20mg PO Lasix but is non compliant to medicationn (hasn't picked up since February, unsure if he used another pharmacy) has b/l pitting edema Was given IV Lasix 40mg in the ED, will give another IV Lasix 40mg and continue daily Strict I's and O's Daily weight Sodium restriction Medication compliance counseling. # Hypertension-Controlled Continue Ranolazine 500mg PO, Losartan 25 mg Daily, Metoprolol XL 12.5 daily and Ranexa PO BID # Hyperlipidemia Continue Crestor 5mg PO HS # Atrial fib on Coumadin with subtherapeutic INR INR is 1.3, Coumadin 6mg given today and to restart 3mg from tomorrow. # Normocytic anemia H/H 9.7/28.9, stable # ANGELA resolved likely was prerenal. Can worsen with lasix will repeat. # FEN Not on IV fluids Electrolytes WNL Sodium controlled diet # Prophylaxis For DVT: On Coumadin already For GI: Not indicated. # Code Status: Full Code # Dispo: Admitted in Tele. Will probably be discharged in 1-2 days. Illness, Investigation and plan of care explained to the patient. He verbalized understanding. Case discussed with Dr. Holley. Problem List - Problems (1) Congestive heart failure Code(s): I50.9 - HEART FAILURE, UNSPECIFIED Qualifiers: (2) Acute on chronic diastolic (congestive) heart failure Code(s): I50.33 - ACUTE ON CHRONIC DIASTOLIC (CONGESTIVE) HEART FAILURE (3) [id number] kidney injury Code(s): N17.9 - ACUTE KIDNEY FAILURE, UNSPECIFIED; N18.9 - CHRONIC KIDNEY DISEASE, UNSPECIFIED Qualifiers: Chronic kidney disease stage: stage 2 (mild) (4) Anemia Code(s): D64.9 - ANEMIA, UNSPECIFIED Qualifiers: Anemia type: unspecified type Qualified Code(s): D64.9 - Anemia, unspecified (5) Atrial fibrillation Code(s): I48.91 - UNSPECIFIED ATRIAL FIBRILLATION Qualifiers: Atrial fibrillation type: permanent Qualified Code(s): I48.2 - Chronic atrial fibrillation (6) CAD (coronary artery disease) Code(s): I25.10 - ATHSCL HEART DISEASE OF [place] CORONARY ARTERY W/O ANG PCTRS Qualifiers: Coronary Disease-Associated Artery/Lesion type: [place] artery [place] vs. transplanted heart: [place] heart Associated angina: without angina Qualified Code(s): I25.10 - Atherosclerotic heart disease of [place] coronary artery without angina pectoris Visit type - Emergency Visit Emergency Visit: Yes ED Registration Date: 10/04/18 Care time: The patient presented to the Emergency Department on the above date and was hospitalized for further evaluation of their emergent condition. - New Patient This patient is new to me today: Yes Date on this admission: 10/04/18 - Critical Care Critical Care patient: No - Discharge Referral Referred to [facility] Med P.C.: No
[2018-10-04] MEDS ORDERED: WARFARIN NA 3 MG TABLET PO SCH (18:00)
[2018-10-04] MEDS ORDERED: WARFARIN NA 3 MG TABLET PO ONE (18:00)
[2018-10-04 18:26] VITALS: BMI 24.4
[2018-10-04] MEDS: ROSUVASTATIN CA 5 MG TABLET (FP) PO SCH (21:06)
[2018-10-05 08:07] LABS: INR 1.38 (0.83-1.09); PROTHROMBIN TIME (PATIENT) 16.3 SEC (9.7-13.0)
[2018-10-05 08:18] LABS: ANION GAP 8 MMOL/L (8-16); BLOOD UREA NITROGEN 37 mg/dL (7-18); CALCIUM 8.3 mg/dL (8.5-10.1); CHLORIDE 103 mmol/L (98-107); CO2 28 mmol/L (21-32); CREATININE 1.5 mg/dL (0.55-1.3); GLUCOSE,RANDOM 92 mg/dL (74-106); POTASSIUM 3.9 mmol/L (3.5-5.1); SODIUM 139 mmol/L (136-145)
[2018-10-05] MEDS: RANOLAZINE E.R. 500 MG TABLET (FP) PO SCH ×2 (09:51→21:40)
[2018-10-05] MEDS: LOSARTAN POTASSIUM 25 MG TABLET PO SCH (09:51)
[2018-10-05] MEDS: metoPROLOL SUCCINATE 25 MG TAB.SR.24H (FP) PO SCH (09:51)
[2018-10-05] MEDS ORDERED: FUROSEMIDE 40 MG/4 ML INJECTABLE VIAL IVPUSH SCH (10:00)
--- NOTE | 2018-10-05 15:39 | PN ---
Physical Exam: SUBJECTIVE: Patient seen and examined. He still feels SOB, but less. OBJECTIVE: Vital Signs Period Temp Pulse Resp BP Sys/Ascencio Pulse Ox Last 24 Hr 97.4 F-97.9 F 53-74 16-21 104-129/41-54 96-100 GENERAL: The patient is awake, alert, and fully oriented, mildly tachypneic sitting in bed. LUNGS: Bilateral rales and wheezes. HEART: Irregularly irregular, (+) JVD. ABDOMEN: Soft, nontender, nondistended, normoactive bowel sounds, no guarding, no rebound, no hepatosplenomegaly, no masses. EXTREMITIES: 2+ pulses, warm, well-perfused, trace edema. Laboratory Results - last 24 hr 10/05/18 10/05/18 06:30 06:30 PT with INR 16.30 H INR 1.38 H Sodium 139 Potassium 3.9 Chloride 103 Carbon Dioxide 28 Anion Gap 8 BUN 37 H Creatinine 1.5 H Creat Clearance w eGFR 44.07 Random Glucose 92 Calcium 8.3 L Active Medications Generic Name Dose Route Start Last Admin Trade Name Freq PRN Reason Stop Dose Admin Losartan Potassium 25 mg 10/04/18 10:00 10/05/18 09:51 Cozaar - PO 25 mg DAILY JAYCE Administration Metoprolol Succinate 12.5 mg 10/04/18 10:00 10/05/18 09:51 Toprol Xl - PO 12.5 mg DAILY JAYCE Administration Ranolazine 500 mg 10/04/18 10:00 10/05/18 09:51 Ranexa - PO 500 mg BID JAYCE Administration Rosuvastatin Calcium 5 mg 10/04/18 22:00 10/04/18 21:06 Crestor - PO 5 mg HS JAYCE Administration Warfarin Sodium 3 mg 10/04/18 18:00 Coumadin - PO 1800 JAYCE ASSESSMENT/PLAN: This is an 88 year old man with a history of chronic diastolic heart failure, HTN, hyperlipidemia, COPD, anemia, stage 3 CKD, carotid stenosis, permanent atrial fib, CAD with CABG and PCI/LUIS EDUARDO who was sent to the ED for shortness of breath. 1. Acute on chronic diastolic heart failure - Continue Lasix IV - Oxygen to maintain saturation >90% - Weight decreased 5.3 kg since admission - Repeat CXR in AM 2. Hypertension - Continue Cozaar, Toprol XL, Lasix 3. Hyperlipidemia - Continue Crestor 4. Permanent atrial fib - Rate controlled - Continue Toprol XL - Continue Coumadin based on INR 5. Stage 3 CKD - Slight worsening with diuresis - Continue to monitor BUN, creatinine 6. Anemia - Likely secondary to chronic illness - Hemoglobin stable 7. COPD - DuoNeb as needed 8. CAD, history of CABG, PCI with LUIS EDUARDO - Continue Toprol XL, Ranexa, Crestor 9. Tricuspid regurgitation, moderate to severe Visit type - Emergency Visit Emergency Visit: Yes ED Registration Date: 10/04/18 Care time: The patient presented to the Emergency Department on the above date and was hospitalized for further evaluation of their emergent condition. - New Patient This patient is new to me today: No - Critical Care Critical Care patient: No - Discharge Referral Referred to [facility] Med P.C.: No
[2018-10-05] MEDS: FUROSEMIDE 40 MG/4 ML INJECTABLE VIAL IVPUSH SCH (16:01)
--- NOTE | 2018-10-05 16:19 | PN ---
Progress Note, Physician History of Present Illness: Shortness of breath on exertion, lower extremity swelling, productive cough, resolving with diuresis. - Current Medication List Current Medications: Active Medications Furosemide (Lasix Injection -) 40 mg IVPUSH DAILY [facility] Last Admin: 10/05/18 16:01 Dose: 40 mg Losartan Potassium (Cozaar -) 25 mg PO DAILY [facility] Last Admin: 10/05/18 09:51 Dose: 25 mg Metoprolol Succinate (Toprol Xl -) 12.5 mg PO DAILY [facility] Last Admin: 10/05/18 09:51 Dose: 12.5 mg Ranolazine (Ranexa -) 500 mg PO BID [facility] Last Admin: 10/05/18 09:51 Dose: 500 mg Rosuvastatin Calcium (Crestor -) 5 mg PO HS [facility] Last Admin: 10/04/18 21:06 Dose: 5 mg Warfarin Sodium (Coumadin -) 3 mg PO 1800 [facility] - Objective Vital Signs: Vital Signs Temperature 97.9 F 10/05/18 14:08 Pulse Rate 66 10/05/18 14:08 Respiratory Rate 16 10/05/18 14:08 Blood Pressure 106/52 L 10/05/18 14:08 O2 Sat by Pulse Oximetry (%) 96 10/05/18 09:00 Constitutional: Yes: No Distress, Calm, Thin Neck: Yes: Supple Cardiovascular: Yes: Pulse Irregular Respiratory: Yes: Regular, Diminished Gastrointestinal: Yes: Normal Bowel Sounds, Soft Edema: Yes Edema: LLE: 1+, RLE: 1+ Labs: CBC, BMP 10/04/18 10:50 10/05/18 06:30 INR, PTT INR 1.38 (0.83-1.09) H 10/05/18 06:30 - ....Imaging EKG: Report Reviewed (Tele: Afib occ PVC) Problem List - Problems (1) Acute on chronic diastolic (congestive) heart failure Code(s): I50.33 - ACUTE ON CHRONIC DIASTOLIC (CONGESTIVE) HEART FAILURE (2) Atrial fibrillation Code(s): I48.91 - UNSPECIFIED ATRIAL FIBRILLATION Qualifiers: Atrial fibrillation type: permanent Qualified Code(s): I48.2 - Chronic atrial fibrillation (3) CAD (coronary artery disease) Code(s): I25.10 - ATHSCL HEART DISEASE OF [place] CORONARY ARTERY W/O ANG PCTRS Qualifiers: Coronary Disease-Associated Artery/Lesion type: [place] artery [place] vs. transplanted heart: [place] heart Associated angina: without angina Qualified Code(s): I25.10 - Atherosclerotic heart disease of [place] coronary artery without angina pectoris (4) CKD (chronic kidney disease) Code(s): N18.9 - CHRONIC KIDNEY DISEASE, UNSPECIFIED Qualifiers: Chronic kidney disease stage: stage 2 (mild) Qualified Code(s): N18.2 - Chronic kidney disease, stage 2 (mild) (5) COPD (chronic obstructive pulmonary disease) Code(s): J44.9 - CHRONIC OBSTRUCTIVE PULMONARY DISEASE, UNSPECIFIED Qualifiers: COPD type: unspecified COPD Qualified Code(s): J44.9 - Chronic obstructive pulmonary disease, unspecified (6) Chronic anticoagulation Code(s): Z79.01 - [employer] (CURRENT) USE OF ANTICOAGULANTS (7) Edema of both legs Code(s): R60.0 - LOCALIZED EDEMA (8) HTN (hypertension) Code(s): I10 - ESSENTIAL (PRIMARY) HYPERTENSION Qualifiers: Hypertension type: essential hypertension Qualified Code(s): I10 - Essential (primary) hypertension (9) Hx of CABG Code(s): Z95.1 - PRESENCE OF AORTOCORONARY BYPASS GRAFT (10) Hyperlipidemia Code(s): E78.5 - HYPERLIPIDEMIA, UNSPECIFIED Qualifiers: Hyperlipidemia type: pure hypercholesterolemia Qualified Code(s): E78.00 - Pure hypercholesterolemia, unspecified; E78.0 - Pure hypercholesterolemia (11) Pulmonary hypertension Code(s): I27.2 - OTHER SECONDARY PULMONARY HYPERTENSION * DO NOT USE * (12) Status post insertion of drug-eluting stent into left anterior descending ( LAD) artery Code(s): Z95.5 - PRESENCE OF CORONARY ANGIOPLASTY IMPLANT AND GRAFT Assessment/Plan 01/10/2018 Normal LV size with low normal LV fxn, normal RV size and fxn, severe AUTUMN, mild-mod MR, mod-severe TR RVSP 31 mmHg 11/16/2017 Echo: Normal LV size and fxn LVEF 55-60%, severe AUTUMN, mild decreased RV fxn with mod dilatation, mild MR, mod-severe TR RVSP 46 mmHg 11/07/2016 P-Myoview: No ischmeia, LVEF 69% 1. Acute on chronic LV diastolic failure with moderate to severe TR and noncompliant with medication 2. CAD s/p CABG and PCI/LUIS EDUARDO, angina 3. Permanent atrial fibrillation [id number] with subtherapeutic INR 4. HTN/HCVD 5. Hypercholesterolemia 6. COPD 7. Anemia 8. Acute on CKD 9. Moderate carotid stenosis PLAN: 1. IV diuresis with monitor diuretic response, renal fxn and electrolytes 2. Continue Losartan 25 qd, Toprol XL 12.5 qd, Ranexa 500 bid and Crestor 5 qd 3. Increase Coumadin dose per INR 4. Compression therapy to legs with lucius wraps 5. Outpatient f/u in office with Dr. Rosales , emphasize importance of medication and diet compliance
[2018-10-05] MEDS ORDERED: PT OWN MED DRAWER 7, Y5N ONE (17:24)
[2018-10-05] MEDS: ROSUVASTATIN CA 5 MG TABLET (FP) PO SCH (21:40)
[2018-10-06 07:55] LABS: ANION GAP 6 MMOL/L (8-16); BLOOD UREA NITROGEN 42 mg/dL (7-18); CALCIUM 7.8 mg/dL (8.5-10.1); CHLORIDE 104 mmol/L (98-107); CO2 27 mmol/L (21-32); CREATININE 1.6 mg/dL (0.55-1.3); GLUCOSE,RANDOM 94 mg/dL (74-106); POTASSIUM 4.4 mmol/L (3.5-5.1); SODIUM 137 mmol/L (136-145)
[2018-10-06] MEDS ORDERED: ALBUTEROL SO4 2.5/IPRATROPIUM 0.5 INH SOL 3 ML VIAL.NEB. NEB PRN (08:14)
[2018-10-06 08:19] LABS: INR 1.42 (0.83-1.09); PROTHROMBIN TIME (PATIENT) 16.8 SEC (9.7-13.0)
[2018-10-06 08:30] LABS: HEMATOCRIT 27.2 % (35.4-49); HEMOGLOBIN 9.4 GM/dL (11.7-16.9); MCH 33.2 pg (25.7-33.7); MCHC 34.7 g/dl (32.0-35.9); MEAN CELL VOLUME 95.8 fl (80-96); MEAN PLT VOLUME 8.5 fl (7.5-11.1); PLATELET COUNT 187 K/MM3 (134-434); RBC 2.84 M/mm3 (4.00-5.60); RDW 16.4 % (11.9-15.9); WHITE BLOOD COUNT 4.6 K/mm3 (4.0-10.0)
[2018-10-06] MEDS: RANOLAZINE E.R. 500 MG TABLET (FP) PO SCH (10:34)
[2018-10-06] MEDS: metoPROLOL SUCCINATE 25 MG TAB.SR.24H (FP) PO SCH (10:34)
[2018-10-06] MEDS: LOSARTAN POTASSIUM 25 MG TABLET PO SCH (10:34)
[2018-10-06] MEDS: FUROSEMIDE 40 MG/4 ML INJECTABLE VIAL IVPUSH SCH (10:35)
--- NOTE | 2018-10-06 11:39 | DS ---
Physical Exam: SUBJECTIVE: Patient seen and examined at bed side this morning. Feels better. Shortness of breath improved. Denies chest pain, sob, cough, palpitation, abdominal pain, nausea or vomiting. Bowel/Bladder habit normal. Sleep/Appetite normal. no acute overnight events. OBJECTIVE: Vital Signs Period Temp Pulse Resp BP Sys/Ascencio Pulse Ox Last 24 Hr 97.4 F-97.9 F 51-66 16-18 98-111/35-52 99 PHYSICAL EXAM GENERAL: Elderly male, sitting comfortably in bed, is awake, alert, and fully oriented, in no respiratory distress. HEAD: Normal with no signs of trauma. EYES: EOM intact, no pallor or icterus. ENT: Ears normal, moist mucous membranes. NECK: Supple, JVD +, lipoma in the back of the neck. LUNGS: Breath sounds equal, bibasilar crackles. HEART: Tachycardic, Regular rate and rhythm, S1, S2 with soft systolic murmur. ABDOMEN: Soft, nontender, no organomegaly. EXTREMITIES: UPPER EXT: 2+ pulses, warm, well-perfused, no edema. LOWER EXT: 2+ pulses, warm, well-perfused, B/L pitting edema up to mid calf- improved. NEUROLOGICAL: No facial droop, power 5/5 in all extremities. Cranial nerves II through XII grossly intact. Normal speech, ambulates with a cane. PSYCH: Normal mood, normal affect. SKIN: Warm, dry, normal turgor, no rashes or lesions noted LABS Laboratory Results - last 24 hr 10/06/18 10/06/18 10/06/18 06:45 06:45 06:45 WBC 4.6 RBC 2.84 L Hgb 9.4 L Hct 27.2 L MCV 95.8 MCH 33.2 MCHC 34.7 RDW 16.4 H Plt Count 187 MPV 8.5 D PT with INR 16.80 H INR 1.42 H Sodium 137 Potassium 4.4 Chloride 104 Carbon Dioxide 27 Anion Gap 6 L BUN 42 H Creatinine 1.6 H Creat Clearance w eGFR 40.90 Random Glucose 94 Calcium 7.8 L Magnesium 2.0 HOSPITAL COURSE: Date of Admission:10/04/18 Date of Discharge: 10/06/18 Patient is an 88 year old male with significant Past Medical hx of dCHF, HTN, HLD, COPD, Anemia, Acute on chronic CKD, moderate carotid stenosis, Permanent Atrial fib, CAD s/p CABG and PCI/LUIS EDUARDO angina was sent by his library media assistant (Dr. Guardado) due to shortness of breath. Patient was admitted in tele/continuous cardiac monitoring was done without any events on tele. Admitted with the diagnosis of CHF exacerbation likely secondary to non compliance to medication. Patient was diuresed with IV Lasix 40 mg with good response, shortness of breath improved along with swelling of the legs. Strict I's and O's done, Daily weight taken, patient lost about 10 lbs. CXR today shows worsened congestion and a possible infiltrate. However, patient looks clinically better, has minimal crackles bilaterally, afebrile, no leukocytosis. CXR changes could have been due to underpenetration. Patient has been explained to comply with medications daily and to f/up with cardiology as outpatient. Hypertension was treated with Ranolazine 500mg PO, Losartan 25 mg Daily, Metoprolol XL 12.5 daily. Lipitor was continued for Hyperlipidemia Has a h/o Atrial fib on Coumadin with subtherapeutic INR (wafarin was increased from 3 to 5mg, recommended patient to recheck INR on 10/10/2018, f/up with PCP and adjust the dose as needed. Patients creatinine is around 1.6, not at baseline, could have worsened due to Lasix. Sending the patient home on PO Lasix 20mg, dose not increased due to ANGELA. Repeat BMP on 10/10/18 and to f/up with PCP. Patient is stable and can be discharged home. Illness, Investigation and plan of care explained to the patient. He verbalized understanding. Case discussed with Dr. Holley. Minutes to complete discharge: 45 Discharge Summary Reason For Visit: CONGESTIVE HEART FAILURE Current Active Problems SOB (shortness of breath) (Acute) Congestive heart failure (Chronic) Condition: Good - Instructions Diet, Activity, Other Instructions: You were admitted the hospital because of exacerbation from congestive heart failure. It is very important you take your water pill everyday. You will start noticing to urinate more frequently but it is normal. The leg swelling will get better and shortness of breath will improve. Please take coumadin 5 mg (we increased the dose), recheck INR on 10/10. We also recommend you to repeat basic metabolic panel (to recheck creatinine as you have an acute kidney injury). Please follow up with your primary physician in a week and cardiology in 1-2 weeks. If your symptoms worsen or you develop any new symptoms please call 911 and come to the ED immediately. Referrals: Celeste Rosales MD [Staff Physician] - Ryan Matos MD [Primary Care Provider] - 1 Week Disposition: HOME - Home Medications Comprehensive Discharge Medication List: Ambulatory Orders Ranolazine [Ranexa -] 500 mg PO BID 03/22/12 Cholecalciferol (Vitamin D3) [Vitamin D -] 2,000 unit PO DAILY 03/13/18 Vit A/Vit C/Vit E/Zinc/Copper [Preservision Areds Tablet] 1 each PO DAILY Metoprolol Succinate [Toprol Xl] 12.5 mg PO DAILY 03/18/18 Furosemide [Lasix] 20 mg PO DAILY 30 Days #30 tablet 10/06/18 Inr 1 ea NR ONCE 1 Days #1 each 10/06/18 Losartan Potassium [Cozaar -] 25 mg PO DAILY tablet 10/06/18 Rosuvastatin [Crestor -] 5 mg PO HS tablet 10/06/18 Warfarin Sodium 5 mg PO HS 30 Days #30 tablet 10/06/18 Problem List - Problems (1) Congestive heart failure Code(s): I50.9 - HEART FAILURE, UNSPECIFIED Qualifiers: (2) Acute on chronic diastolic (congestive) heart failure Code(s): I50.33 - ACUTE ON CHRONIC DIASTOLIC (CONGESTIVE) HEART FAILURE (3) [id number] kidney injury Code(s): N17.9 - ACUTE KIDNEY FAILURE, UNSPECIFIED; N18.9 - CHRONIC KIDNEY DISEASE, UNSPECIFIED Qualifiers: Chronic kidney disease stage: stage 2 (mild) (4) Anemia Code(s): D64.9 - ANEMIA, UNSPECIFIED Qualifiers: Anemia type: unspecified type Qualified Code(s): D64.9 - Anemia, unspecified (5) Atrial fibrillation Code(s): I48.91 - UNSPECIFIED ATRIAL FIBRILLATION Qualifiers: Atrial fibrillation type: permanent Qualified Code(s): I48.2 - Chronic atrial fibrillation (6) CAD (coronary artery disease) Code(s): I25.10 - ATHSCL HEART DISEASE OF [place] CORONARY ARTERY W/O ANG PCTRS Qualifiers: Coronary Disease-Associated Artery/Lesion type: [place] artery [place] vs. transplanted heart: [place] heart Associated angina: without angina Qualified Code(s): I25.10 - Atherosclerotic heart disease of [place] coronary artery without angina pectoris This patient is new to me today: No Emergency Visit: Yes ED Registration Date: 10/04/18 Care time: The patient presented to the Emergency Department on the above date and was hospitalized for further evaluation of their emergent condition. Critical Care patient: No - Discharge Referral Referred to [facility] Med [facility] No
--- NOTE | 2018-10-06 12:00 | PN ---
Teaching Attending Note Name of Resident: Paige Rollins ATTENDING PHYSICIAN STATEMENT I saw and evaluated the patient. I reviewed the resident's note and discussed the case with the resident. I agree with the resident's findings and plan as documented. SUBJECTIVE: OBJECTIVE: Vital Signs Period Temp Pulse Resp BP Sys/Ascencio Pulse Ox Last 24 Hr 97.4 F-97.9 F 51-66 16-18 98-111/35-52 99 Intake & Output 10/03/18 10/04/18 10/05/18 10/06/18 23:59 23:59 23:59 23:59 Intake Total 130 860 370 Output Total 550 300 Balance 130 310 70 Weight 85.729 kg 83.915 kg 80.467 kg 78.471 kg Laboratory Results - last 24 hr 10/06/18 10/06/18 10/06/18 06:45 06:45 06:45 WBC 4.6 RBC 2.84 L Hgb 9.4 L Hct 27.2 L MCV 95.8 MCH 33.2 MCHC 34.7 RDW 16.4 H Plt Count 187 MPV 8.5 D PT with INR 16.80 H INR 1.42 H Sodium 137 Potassium 4.4 Chloride 104 Carbon Dioxide 27 Anion Gap 6 L BUN 42 H Creatinine 1.6 H Creat Clearance w eGFR 40.90 Random Glucose 94 Calcium 7.8 L Magnesium 2.0 Laboratory Results - last 24 hr 10/06/18 10/06/18 10/06/18 06:45 06:45 06:45 WBC 4.6 RBC 2.84 L Hgb 9.4 L Hct 27.2 L MCV 95.8 MCH 33.2 MCHC 34.7 RDW 16.4 H Plt Count 187 MPV 8.5 D PT with INR 16.80 H INR 1.42 H Sodium 137 Potassium 4.4 Chloride 104 Carbon Dioxide 27 Anion Gap 6 L BUN 42 H Creatinine 1.6 H Creat Clearance w eGFR 40.90 Random Glucose 94 Calcium 7.8 L Magnesium 2.0 Current Medications Generic Name Dose Route Start Last Admin Trade Name Freq PRN Reason Stop Dose Admin Albuterol/Ipratropium 1 amp 10/06/18 08:14 Duoneb - NEB Q4H PRN SHORTNESS OF BREATH Furosemide 40 mg 10/05/18 15:45 10/06/18 10:35 Lasix Injection - IVPUSH 40 mg DAILY AJYCE Administration Losartan Potassium 25 mg 10/04/18 10:00 10/06/18 10:34 Cozaar - PO 25 mg DAILY JAYCE Administration Metoprolol Succinate 12.5 mg 10/04/18 10:00 10/06/18 10:34 Toprol Xl - PO 12.5 mg DAILY JAYCE Administration Ranolazine 500 mg 10/04/18 10:00 10/06/18 10:34 Ranexa - PO 500 mg BID JAYCE Administration Rosuvastatin Calcium 5 mg 10/04/18 22:00 10/05/18 21:40 Crestor - PO 5 mg HS JAYCE Administration Warfarin Sodium 3 mg 10/04/18 18:00 10/05/18 18:04 Coumadin - PO 3 mg 1800 JAYCE Administration ASSESSMENT AND PLAN: This is an 88 year old man with a history of chronic diastolic heart failure, HTN, hyperlipidemia, COPD, anemia, stage 3 CKD, carotid stenosis, permanent atrial fib, CAD with CABG and PCI/LUIS EDUARDO who was sent to the ED for shortness of breath. 1. Acute on chronic diastolic heart failure - Continue Lasix IV - Oxygen to maintain saturation >90% - Weight decreased 5.3 kg since admission - Repeat CXR in AM 2. Hypertension - Continue Cozaar, Toprol XL, Lasix 3. Hyperlipidemia - Continue Crestor 4. Permanent atrial fib - Rate controlled - Continue Toprol XL - Continue Coumadin based on INR 5. Stage 3 CKD - Slight worsening with diuresis - Continue to monitor BUN, creatinine 6. Anemia - Likely secondary to chronic illness - Hemoglobin stable 7. COPD - DuoNeb as needed 8. CAD, history of CABG, PCI with LUIS EDUARDO - Continue Toprol XL, Ranexa, Crestor 9. Tricuspid regurgitation, moderate to severe
[2018-10-06 12:57] VITALS: BP 120/61; TEMP 98
[2018-10-06 13:52] VITALS: PULSE 73
--- NOTE | 2018-10-06 14:06 | PN ---
Progress Note, Physician History of Present Illness: Shortness of breath on exertion, lower extremity swelling, productive cough, resolving with diuresis. - Current Medication List Current Medications: Active Medications Albuterol/Ipratropium (Duoneb -) 1 amp NEB Q4H PRN PRN Reason: SHORTNESS OF BREATH Furosemide (Lasix Injection -) 40 mg IVPUSH DAILY [facility] Last Admin: 10/06/18 10:35 Dose: 40 mg Losartan Potassium (Cozaar -) 25 mg PO DAILY [facility] Last Admin: 10/06/18 10:34 Dose: 25 mg Metoprolol Succinate (Toprol Xl -) 12.5 mg PO DAILY [facility] Last Admin: 10/06/18 10:34 Dose: 12.5 mg Ranolazine (Ranexa -) 500 mg PO BID [facility] Last Admin: 10/06/18 10:34 Dose: 500 mg Rosuvastatin Calcium (Crestor -) 5 mg PO HS [facility] Last Admin: 10/05/18 21:40 Dose: 5 mg Warfarin Sodium (Coumadin -) 3 mg PO 1800 [facility] Last Admin: 10/05/18 18:04 Dose: 3 mg - Objective Vital Signs: Vital Signs Temperature 98.0 F 10/06/18 10:00 Pulse Rate 73 10/06/18 13:51 Respiratory Rate 20 10/06/18 10:00 Blood Pressure 120/61 10/06/18 10:00 O2 Sat by Pulse Oximetry (%) 99 10/06/18 13:51 Labs: CBC, BMP 10/06/18 06:45 10/06/18 06:45 INR, PTT INR 1.42 (0.83-1.09) H 10/06/18 06:45 Problem List - Problems (1) Acute on chronic diastolic (congestive) heart failure Code(s): I50.33 - ACUTE ON CHRONIC DIASTOLIC (CONGESTIVE) HEART FAILURE (2) Atrial fibrillation Code(s): I48.91 - UNSPECIFIED ATRIAL FIBRILLATION Qualifiers: Atrial fibrillation type: permanent Qualified Code(s): I48.2 - Chronic atrial fibrillation (3) CAD (coronary artery disease) Code(s): I25.10 - ATHSCL HEART DISEASE OF [place] CORONARY ARTERY W/O ANG PCTRS Qualifiers: Coronary Disease-Associated Artery/Lesion type: [place] artery [place] vs. transplanted heart: [place] heart Associated angina: without angina Qualified Code(s): I25.10 - Atherosclerotic heart disease of [place] coronary artery without angina pectoris (4) CKD (chronic kidney disease) Code(s): N18.9 - CHRONIC KIDNEY DISEASE, UNSPECIFIED Qualifiers: Chronic kidney disease stage: stage 2 (mild) Qualified Code(s): N18.2 - Chronic kidney disease, stage 2 (mild) (5) COPD (chronic obstructive pulmonary disease) Code(s): J44.9 - CHRONIC OBSTRUCTIVE PULMONARY DISEASE, UNSPECIFIED Qualifiers: COPD type: unspecified COPD Qualified Code(s): J44.9 - Chronic obstructive pulmonary disease, unspecified (6) Chronic anticoagulation Code(s): Z79.01 - [facility]CI (CURRENT) USE OF ANTICOAGULANTS (7) Edema of both legs Code(s): R60.0 - LOCALIZED EDEMA (8) HTN (hypertension) Code(s): I10 - ESSENTIAL (PRIMARY) HYPERTENSION Qualifiers: Hypertension type: essential hypertension Qualified Code(s): I10 - Essential (primary) hypertension (9) Hx of CABG Code(s): Z95.1 - PRESENCE OF AORTOCORONARY BYPASS GRAFT (10) Hyperlipidemia Code(s): E78.5 - HYPERLIPIDEMIA, UNSPECIFIED Qualifiers: Hyperlipidemia type: pure hypercholesterolemia Qualified Code(s): E78.00 - Pure hypercholesterolemia, unspecified; E78.0 - Pure hypercholesterolemia (11) Pulmonary hypertension Code(s): I27.2 - OTHER SECONDARY PULMONARY HYPERTENSION * DO NOT USE * (12) Status post insertion of drug-eluting stent into left anterior descending ( LAD) artery Code(s): Z95.5 - PRESENCE OF CORONARY ANGIOPLASTY IMPLANT AND GRAFT Assessment/Plan 01/10/2018 Normal LV size with low normal LV fxn, normal RV size and fxn, severe AUTUMN, mild-mod MR, mod-severe TR RVSP 31 mmHg 11/16/2017 Echo: Normal LV size and fxn LVEF 55-60%, severe AUTUMN, mild decreased RV fxn with mod dilatation, mild MR, mod-severe TR RVSP 46 mmHg 11/07/2016 P-Myoview: No ischmeia, LVEF 69% 1. Acute on chronic LV diastolic failure with moderate to severe TR and noncompliant with medication 2. CAD s/p CABG and PCI/LUIS EDUARDO, angina 3. Permanent atrial fibrillation [id number] with subtherapeutic INR 4. HTN/HCVD 5. Hypercholesterolemia 6. COPD 7. Anemia 8. Acute on CKD 9. Moderate carotid stenosis PLAN: 1. IV diuresis with monitor diuretic response, renal fxn and electrolytes 2. Continue Losartan 25 qd, Toprol XL 12.5 qd, Ranexa 500 bid and Crestor 5 qd 3. Increase Coumadin dose per INR 4. Compression therapy to legs with lucius wraps 5. Outpatient f/u in office with Dr. Rosales , emphasize importance of medication and diet compliance
== END 2018-10-06 03:00 | disposition home or self-care (01) | DRG 291 ==
LOC: JER 18:03 → JERBED 22:22 → OBSVTOIN 10-04 13:19 → J4S 10-04 17:53
PROVIDERS: ADMIT Internal Medicine; ATTEND Internal Medicine
DX: I13.0 Hypertensive heart and chronic kidney disease with heart failure and stage 1 through stage 4 chronic kidney disease, or unspecified chronic kidney disease (principal); I50.23 Acute on chronic systolic (congestive) heart failure; N17.9 Acute kidney failure, unspecified; Z95.1 Presence of aortocoronary bypass graft; E78.5 Hyperlipidemia, unspecified; D72.1 Eosinophilia; J44.9 Chronic obstructive pulmonary disease, unspecified; Z91.14 Patient's other noncompliance with medication regimen; I25.119 Atherosclerotic heart disease of native coronary artery with unspecified angina pectoris; Z98.61 Coronary angioplasty status; I48.2 Chronic atrial fibrillation; N18.3 Chronic kidney disease, stage 3 (moderate); I36.1 Nonrheumatic tricuspid (valve) insufficiency; D63.1 Anemia in chronic kidney disease
CPT/HCPCS: 36415; 71046-TC-FY; 80048; 82550; 82553; 83735; 83880; 84484; 85025; 85027; 85610; 93005; 93010; 94761; 99284-25; G0378

== ENCOUNTER 2018-12-30 12:52 | Inpatient (IN) | payer OTHER, MEDICARE ==
--- NOTE | 2018-12-30 14:03 | PDOC ---
History of Present Illness - General Chief Complaint: Shortness of Breath Stated Complaint: SOB Time Seen by Provider: 12/30/18 14:02 History Source: Patient, Family (Daughter present at bedside), Spouse ( present at bedside), Old Records Exam Limitations: No Limitations - History of Present Illness Initial Comments: HPI: 88 y/o male presenting to [facility] ER complaining of progressive shortness of breath and fatigue over the past week. Endorses worsening paroxysmal nocturnal dyspnea, exertional dyspnea, and bilateral swelling to lower extremities. Pt has a h/o of CHF, stage unknown. Is current managed with 40mg PO Lasix in the morning. He was additionally taking spironolactone in the evening until it was discontinued by his physician two weeks ago. Pt further endorses decreased urination. Pt is scheduled to undergo pacemaker placement for slow a-fib on (02 January 2019) at [facility]. PCP: Dr. Matos Cardiolog: Dr. Rosales Past History - Past Medical History Allergies/Adverse Reactions: Allergies Allergy/AdvReac Type Severity Reaction Status Date / Time No Known Allergies Allergy Verified 12/30/18 13:06 Home Medications: Ambulatory Orders Ranolazine [Ranexa -] 500 mg PO BID 03/22/12 Cholecalciferol (Vitamin D3) [Vitamin D -] 2,000 unit PO DAILY 03/13/18 Vit A/Vit C/Vit E/Zinc/Copper [Preservision Areds Tablet] 1 each PO DAILY Metoprolol Succinate [Toprol Xl] 25 mg PO DAILY 03/18/18 Losartan Potassium [Cozaar -] 25 mg PO DAILY tablet 10/06/18 Warfarin Sodium 5 mg PO HS 30 Days #30 tablet 10/06/18 Allopurinol [Zyloprim -] 150 mg PO DAILY 12/30/18 Furosemide [Lasix] 40 mg PO DAILY 12/30/18 Rosuvastatin [Crestor -] 3 mg PO HS 12/30/18 Anemia: No Asthma: No Cancer: No Cardiac Disorders: Yes (CABG, Slow A-fib) CVA: No COPD: No CHF: Yes (Stage unknown) Dementia: No Diabetes: No GI Disorders: Yes (C-DIFF, HX OF PERFORATED COLON AFTER HIP SURGERY) Disorders: (NEPHROLITHIASIS) HTN: Yes Hypercholesterolemia: Yes Liver Disease: No Seizures: No Thyroid Disease: No - Surgical History Abdominal Surgery: Yes (12/2011 hemicolectomy for perforated cecum) Appendectomy: Yes Cardiac Surgery: Yes (2 VESSEL CABG,CARDIAC STENT) Cholecystectomy: No Lung Surgery: No Neurologic Surgery: No Orthopedic Surgery: Yes (orif rt forearm; lt hip replacement 10 yrs ago; rt hip 2011) - Immunization History Immunization Up to Date: Yes - Suicide/Smoking/Psychosocial Hx Smoking History: Never smoked Have you smoked in the past 12 months: No Number of Cigarettes Smoked Daily: 0 If you are a former smoker, when did you quit?: 25YR Cigars Per Day: 0 'Breaking Loose' booklet given: 10/04/18 Hx Alcohol Use: No Drug/Substance Use Hx: No Substance Use Type: None Hx Substance Use Treatment: No Review of Systems - Review of Systems Able to Perform ROS?: Yes Comments:: In addition to that documented in the HPI above, the additional ROS was obtained : Constitutional: Denies fevers or chills Head: Denies vision changes ENMT: Denies sore throat CV: Denies chest pain Resp: Per HPI GI: Endorses diarrhea yesterday, none today. Denies vomiting : Endorses decreased urination MSK: Denies recent trauma Skin: Denies new rashes Neuro: Denies new numbness or tingling or weakness Endocrine: Denies polyuria Heme: Denies bleeding or bruising *Physical Exam - Vital Signs Last Vital Signs Temp Pulse Resp BP Pulse Ox 97.8 F 51 L 16 101/38 L 100 12/30/18 13:06 12/30/18 13:06 12/30/18 13:06 12/30/18 13:06 12/30/18 13:06 - Physical Exam Comments: Constitutional: Well-developed, well-nourished adult male in no acute distress or obvious discomfort. Found semi-fowlers on hospital bed. Alert and oriented x4. Answered all questions appropriately and completely. Speech was non-labored , non-pressured. Head: Normocephalic. No obvious external signs of trauma. Eyes: Sclerae white. Ears: Hearing grossly intact. Nose: No nasal discharge. Neck: Supple, trachea is midline. Cardiovascular / Chest: Irregularly irregular rhythm. ? holosystolic murmur loudest with inspiration. Peripheral pulses: radial pulses full. 3+ pitting pretibial edema to above knee bilaterally. Respiratory: Breathing unlabored. Equal chest rise and fall. Decreased breath sounds in the lower lobes bilaterally. No wheezing or rales. Gastrointestinal: abdomen is soft, non-tender, non-distended. Positive fluid wave. Midline post surgical scar. Neuro: Alert and oriented. Moving all four extremities spontaneously. Skin: Warm, dry, and intact. : Scrotal and penile edema. Psych: Affect: appropriate. Mood: normal. Moderate Sedation - Procedure Monitoring Vital Signs: Procedure Monitoring Vital Signs Temperature 97.8 F 12/30/18 13:06 Pulse Rate 51 L 12/30/18 13:06 Respiratory Rate 16 12/30/18 13:06 Blood Pressure 101/38 L 12/30/18 13:06 O2 Sat by Pulse Oximetry (%) 100 12/30/18 13:06 ED Treatment Course - LABORATORY CBC & Chemistry Diagram: 12/30/18 15:00 12/30/18 15:00 - ADDITIONAL ORDERS Additional order review: 12/30/18 12/30/18 15:00 15:00 PT with INR 39.00 H INR 3.27 H Sodium 133 L Potassium 4.8 Chloride 100 Carbon Dioxide 25 Anion Gap 8 BUN 73 H Creatinine 3.2 H Creat Clearance w eGFR 18.38 Random Glucose 103 Calcium 8.1 L Total Bilirubin 0.4 AST 32 ALT 22 Alkaline Phosphatase 95 Creatine Kinase 238 Creatine Kinase Index 4.0 CK-MB (CK-2) 9.7 H Troponin I 0.06 H B-Natriuretic Peptide 6050.7 H Total Protein 6.3 L Albumin 3.0 L 12/30/18 15:00 RBC 2.32 L MCV 99.0 H MCHC 35.1 RDW 16.4 H MPV 8.1 Neutrophils % 72.2 Lymphocytes % 12.7 D Monocytes % 12.0 H Eosinophils % 1.5 Basophils % 1.6 - RADIOLOGY Radiology Studies Ordered: Category Date Time Status CHEST X-RAY PORTABLE* [RAD] Stat Radiology 12/30/18 14:37 Completed Medical Decision Making - Medical Decision Making *Reviewed vital signs, nursing notes, and prior visit documentation (if available). 14:[address] Solitario of cardiology. Verbally appraised of the pts HPI, ED course, and current plan of management. Will evaluate the pt. Consult order placed. CMP resulted and revealed elevated Cr and BUN above baseline. Suspect likely ANGELA overlying CKD. Will continue with plan to diuresis with 40 lasix IV. Pts BP borderline hypotensive. Will withhold lasix at this time as pt is not in extremis. 17:48 Microblog sent to [facility] for admission. Awaiting call back. 18:00 Pt signed out to resident Dr. Xavier after she was verbally appraised of the pts HPI, current ED course, and plan of management. Will follow up on pending admission for acute CHF exacerbation and likely cardiorenal syndrome. *DC/Admit/Observation/Transfer Diagnosis at time of Disposition: [id number] kidney injury Qualifiers: Acute renal failure type: unspecified Chronic kidney disease stage: unspecified stage Qualified Code(s): N17.9 - Acute kidney failure, unspecified Congestive heart failure Qualifiers: Heart failure type: unspecified Heart failure chronicity: acute on chronic Qualified Code(s): I50.9 - Heart failure, unspecified - Discharge Dispostion Condition at time of disposition: Stable Decision to Admit order: Yes - Referrals Referrals: Ryan Matos MD [Primary Care Provider] - - Patient Instructions - Post Discharge Activity
[2018-12-30 15:23] LABS: BASO % 1.6 % (0-2.0); EOS % 1.5 % (0-4.5); HEMOGLOBIN 8.1 GM/dL (11.7-16.9); LYMPH % 12.7 % (8-40); MCH 34.7 pg (25.7-33.7); MCHC 35.1 g/dl (32.0-35.9); MEAN PLT VOLUME 8.1 fl (7.5-11.1); NEUT % 72.2 % (42.8-82.8); PLATELET COUNT 148 K/MM3 (134-434); RBC 2.32 M/mm3 (4.00-5.60); RDW 16.4 % (11.9-15.9)
[2018-12-30 15:39] LABS: INR 3.27 (0.83-1.09)
[2018-12-30 16:39] LABS: ALK PHOS 95 U/L (45-117); ANION GAP 8 MMOL/L (8-16); BILIRUBIN,TOTAL 0.4 mg/dL (0.2-1); BLOOD UREA NITROGEN 73 mg/dL (7-18); CALCIUM 8.1 mg/dL (8.5-10.1); CHLORIDE 100 mmol/L (98-107); CO2 25 mmol/L (21-32); CREATININE 3.2 mg/dL (0.55-1.3); GLUCOSE,RANDOM 103 mg/dL (74-106); N-TERMINAL BNP 6050.7 pg/ml (5-450); POTASSIUM 4.8 mmol/L (3.5-5.1); SGOT/AST 32 U/L (15-37); SGPT/ALT 22 U/L (13-61); SODIUM 133 mmol/L (136-145); TOT PROT 6.3 g/dl (6.4-8.2)
--- NOTE | 2018-12-30 16:39 | PDOC ---
Attending Attestation - Resident Resident Name: Edy Perez - ED Attending Attestation I have performed the following: I have examined & evaluated the patient, The case was reviewed & discussed with the resident, I agree w/resident's findings & plan, Exceptions are as noted - HPI HPI: 12/30/18 16:37 The patient is an 88 year old male, with a significant PMH of HTN, HLD, AFib ( on coumadin), CAD (s/p CABG, s/p drug-eluting stent x1), diastolic CHF, who presents to the emergency department for evaluation of SOB, generalized weakness , and lower extremity edema for about a week. The patient is on lasix and was on spironolactone but discontinued about 2 weeks ago, and his symptoms began soon after. Endorses swelling all the way up to his abdomen. Endorses orthopnea and ELMORE. The patient denies chest pain, headache and dizziness. Denies fever, chills, nausea, vomit, diarrhea and constipation. Denies dysuria, frequency, urgency and hematuria. Allergies: NKA Social history: None reported Wireless Sales Representative: Dr. Rosales PCP: Dr. Matos - Physicial Exam PE: 12/30/18 16:39 "GENERAL: Awake, alert, and fully oriented, in no acute distress. HEAD: No signs of trauma EYES: PERRLA, EOMI, sclera anicteric, conjunctiva clear ENT: Auricles normal inspection, hearing grossly normal, nares patent, oropharynx clear without exudates. Moist mucosa NECK: Nontender, no stepoffs, Normal ROM, supple, no lymphadenopathy, JVD, or masses LUNGS: + bibasilar rales HEART: Regular rate and rhythm, normal S1 and S2, no murmurs, rubs or gallops ABDOMEN: Soft, nontender, normoactive bowel sounds. No guarding, no rebound. No masses EXTREMITIES: +2 PE BLE, No clubbing or cyanosis. No cords, erythema, or tenderness NEUROLOGICAL: Cranial nerves II through XII intact. 5/5 strength and sensation in all extremities, Normal speech, normal gait, normal cerebellar function SKIN: Warm, Dry, normal turgor, no rashes or lesions noted. - Critical Care Time Total Critical Care Time: 60 Critical Care Statement: The care of this patient involved high complexity decision making to prevent further life threatening deterioration of the patient 's condition and/or to evaluate & treat vital organ system(s) failure or risk of failure. - Medical Decision Making 12/30/18 16:39 88 M with SOB, ELMORE, orthopnea, LE edema. Clinically concerning for volume overload. - Labs, trop, BNP - CXR - IV lasix
[2018-12-30] MEDS ORDERED: FUROSEMIDE 40 MG/4 ML INJECTABLE VIAL IVPUSH ONE (17:16)
--- NOTE | 2018-12-30 19:28 | PDOC ---
*Physical Exam - Vital Signs Last Vital Signs Temp Pulse Resp BP Pulse Ox 97.8 F 60 16 98/52 L 96 12/30/18 13:06 12/30/18 19:02 12/30/18 19:02 12/30/18 19:02 12/30/18 19:02 ED Treatment Course - LABORATORY CBC & Chemistry Diagram: 12/30/18 15:00 12/30/18 15:00 - ADDITIONAL ORDERS Additional order review: Laboratory Results 12/30/18 12/30/18 15:00 15:00 PT with INR 39.00 H INR 3.27 H Sodium 133 L Potassium 4.8 Chloride 100 Carbon Dioxide 25 Anion Gap 8 BUN 73 H Creatinine 3.2 H Creat Clearance w eGFR 18.38 Random Glucose 103 Calcium 8.1 L Total Bilirubin 0.4 AST 32 ALT 22 Alkaline Phosphatase 95 Creatine Kinase 238 Creatine Kinase Index 4.0 CK-MB (CK-2) 9.7 H Troponin I 0.06 H B-Natriuretic Peptide 6050.7 H Total Protein 6.3 L Albumin 3.0 L 12/30/18 15:00 RBC 2.32 L MCV 99.0 H MCHC 35.1 RDW 16.4 H MPV 8.1 Neutrophils % 72.2 Lymphocytes % 12.7 D Monocytes % 12.0 H Eosinophils % 1.5 Basophils % 1.6 - Medications Given in the ED: ED Medications Discontinued Medications Generic Name Dose Route Start Last Admin Trade Name Freq PRN Reason Stop Dose Admin Furosemide 40 mg 12/30/18 17:16 12/30/18 17:44 Lasix Injection - IVPUSH 12/30/18 17:17 Not Given ONCE ONE Medical Decision Making - Medical Decision Making 12/30/18 19:24 Sign out received from Dr Perez. Jasmeet Aleman is an 88yo man with a PMH HTN, HLD, AFib (on coumadin), CAD (s/p CABG, s/p drug-eluting stent x1), diastolic CHF who presented to the ED with ELMORE , generalized weakness, and BLE edema. He was found to have a CHF exacerbation and ANGELA. ED course notable for: - Cr 3.2 from baseline 1.4-1.8 - BNP 6050 - Dr Perez spoke to cardiology (Dr Solitario) who said he would come to evaluate Mr Aleman - Decision to hold lasix at this time given borderline hypotension - To be admitted; microblog sent by Dr Perez. Waiting to sign out to medicine team. 12/30/18 21:11 - Admission delayed due to the medicine team being involved in a code in the ICU. Spoke to Dr Li, who had received sign out from Dr Perez. She states that she endorsed care of Mr Aleman to the overnight team. They will come to evaluate Mr Aleman when available. 12/30/18 21:52 - Dr Amor at bedside to evaluate. Discussed with Dr Davis. Hoa Xavier PGY1 *DC/Admit/Observation/Transfer Diagnosis at time of Disposition: [id number]-[id number] kidney injury Qualifiers: Acute renal failure type: unspecified Chronic kidney disease stage: unspecified stage Qualified Code(s): N17.9 - Acute kidney failure, unspecified Congestive heart failure Qualifiers: Heart failure type: unspecified Heart failure chronicity: acute on chronic Qualified Code(s): I50.9 - Heart failure, unspecified - Discharge Dispostion Condition at time of disposition: Stable - Referrals - Patient Instructions - Post Discharge Activity
--- NOTE | 2018-12-30 20:48 | PN ---
Teaching Attending Note Name of Resident: Andrés Amor ATTENDING PHYSICIAN STATEMENT I saw and evaluated the patient. I reviewed the resident's note and discussed the case with the resident. I agree with the resident's findings and plan as documented. SUBJECTIVE: Patient is an 88 year old man with a PMH of HTN, HLD, AFib (on coumadin), CAD (s /p CABG, s/p drug-eluting stent x1), diastolic CHF who presented to the ER with ELMORE, generalized weakness, and BLE edema. The patient was on lasix and spironolactone but they were discontinued about 2 weeks ago, and his symptoms began soon after. Has swelling all the way up to his abdomen, orthopnea and ELMORE. The patient denies chest pain, headache and dizziness. Denies fever, chills , nausea, vomit, diarrhea and constipation. Denies dysuria, frequency, urgency and hematuria. The ER physician spoke to his pattern ruler and a joint decision was made to hold lasix at this time given borderline hypotension. Scheduled for pacemaker placement next week. OBJECTIVE: Alert with labored breathing Vital Signs Period Temp Pulse Resp BP Sys/Ascencio Pulse Ox Last 24 Hr 97.8 F 51-69 16-97 98-102/38-61 96-100 HEENT: No Jaundice, eye redness or discharge, PERRLA, EOMI. Normocephalic, atraumatic. External ears are normal and hearing is grossly intact. No nasal discharge. Neck: Supple, nontender. Lump on the back of his neck - nontender. No palpable adenopathy or thyromegaly. No JVD Chest: Good effort. Diminished breath sounds. Clear to percussion. Heart: Regular. No S3 orrub; 2/6 SOFIE Abdomen: Not distended, soft, nontender and no HSM. No rebound or guarding. Normal bowel sounds. Ext: Peripheral pulses intact. LE edema up to the thighs. Skin: Warm and dry. No petechiae, rash or ecchymosis. Neuro: Alert. Oriented x3. CN 2-12 grossly intact. Sensation grossly intact in all four extremities and DTR are symmetric. Psych: Appropriate mood and affect. Good insight. Home Medications Medication Instructions Recorded Ranolazine [Ranexa -] 500 mg PO BID 03/22/12 Cholecalciferol (Vitamin D3) 2,000 unit PO DAILY 03/13/18 [Vitamin D -] Vit A/Vit C/Vit E/Zinc/Copper 1 each PO DAILY 03/13/18 [Preservision Areds Tablet] Metoprolol Succinate [Toprol Xl] 25 mg PO DAILY 03/18/18 Losartan Potassium [Cozaar -] 25 mg PO DAILY tablet 10/06/18 Warfarin Sodium 5 mg PO HS 30 Days #30 tablet 10/06/18 Allopurinol [Zyloprim -] 150 mg PO DAILY 12/30/18 Furosemide [Lasix] 40 mg PO DAILY 12/30/18 Rosuvastatin [Crestor -] 3 mg PO HS 12/30/18 Abnormal Lab Results 12/30/18 12/30/18 12/30/18 15:00 15:00 15:00 RBC 2.32 L Hgb 8.1 L Hct 23.0 L D MCV 99.0 H MCH 34.7 H RDW 16.4 H Monocytes % 12.0 H PT with INR 39.00 H INR 3.27 H Sodium 133 L BUN 73 H Creatinine 3.2 H Calcium 8.1 L CK-MB (CK-2) 9.7 H Troponin I 0.06 H B-Natriuretic Peptide 6050.7 H Total Protein 6.3 L Albumin 3.0 L ASSESSMENT AND PLAN: 1. CHF Exacerbation - Insufficient diuresis likely precipitating factor especially with coexisting CKD. Associated anemia may also be worsening LV function. Will also rule out ACS though demand ischemia may explain elevated troponin. EKG shows junctional rhythm with no significant ST-T wave changes. CXR shows cardiomegaly, bilateral pleural effusion and pulmonary congestion. ECHO from 01/10/18 showed reduced LV systolic function with EF of 46.5%. Cardiology being consulted. In view of hypotension precluding use of IV lasix bolus, therapeutic options include use of IV dobutamine or combination of vasopressin and dopamine, and once BP improves will give IV lasix bolus or infusion. But since the associated CKD may limit renal salt excretion with diuresis, patient may be forced to start dialysis therapy earlier than "usual" to mobilize excess fluid. 2. Hypoalbuminemia - Possibly due to combined effects of malnutrition and inflammation associated with comorbid chronic conditions. Will ensure adequate dietary protein intake and also consult iap displays analyst. 3. CKD - Cause unclear. Will consult nephrology and avoid nephrotoxic agents such as NSAIDS, aminoglycosides, contrast dyes and certain Alternative medicine products. 4. Anemia - Likely partly due to CKD. Do basic anemia work up including serial stool guaiacs, Vitamin B12 and folate levels, reticulocyte count and iron studies. Would benefit from Procrit therapy once iron replete. 5. DVT prophylaxis - On coumadin for Afib. Hold coumadin for high INR and repeat INR. 6. Advance directives - Full code
[2018-12-30] MEDS ORDERED: DOBUTAMINE 250 MG/D5W - 250,000 MCG/250 ML INFUS.BAG IV SCH (23:00)
--- NOTE | 2018-12-30 23:28 | HP ---
CHIEF COMPLAINT: Worsening shortness of breath PCP: HISTORY OF PRESENT ILLNESS: Pt. is a 88 y.o. M presenting with worsening shortness of breath over the last few weeks. Pt. states that the shortness of breath about a month ago was only with mild to moderate activity and now has progressed to shortness of breath at rest. Pt. notes that he had an echocardiogram [address] Gomez's office. Pt. states that he was supposed to have a PPM placed at [facility] on . Pt. states he is ~185 lbs. (Dry weight from last Discharge was 172 lbs.) Pt. states Warfarin recently got increased to 10mg Daily? Pt. noted that his Aldactone was discontinued a couple weeks ago. Pt. endorses worsening balance over the last few months and noted that he has fallen in the past. Pt. states he uses the equivalent of about 3-4 pillows at home. Pt. endorses swelling of the lower extremities that has gotten worse over the last few weeks. Pt. states that he has had diarrhea at home until recently. Pt. endorses decreased urine output over the last couple weeks. Pt. denies any numbness/tingling, chest pain, pain or difficulty urinating, blood in the stool or urine, fevers or chills. ER course was notable for: (1) CBC, BNP, CMP (2)EKG, CXR (3)Called consult Dr. Solitario Recent Travel: NO PAST MEDICAL HISTORY: HFpEF, HTN, HLD, COPD, Anemia, CKD, Carotid stenosis, A.Fib (Warfarin), CAD(s/p CABG), PCI(LUIS EDUARDO) 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 Hip replacement, hemicolectomy, CABG(2-vessel disease), ORIF of RFA, Left collar bone fracture Social History: Smoking: Former, Quit 25 years ago Alcohol: Denies Drugs: Denies Allergies No Known Allergies Allergy (Verified 12/30/18 13:06) HOME MEDICATIONS: Home Medications Medication Instructions Recorded Ranolazine [Ranexa -] 500 mg PO BID 03/22/12 Cholecalciferol (Vitamin D3) 2,000 unit PO DAILY 03/13/18 [Vitamin D -] Vit A/Vit C/Vit E/Zinc/Copper 1 each PO DAILY 03/13/18 [Preservision Areds Tablet] Metoprolol Succinate [Toprol Xl] 25 mg PO DAILY 03/18/18 Losartan Potassium [Cozaar -] 25 mg PO DAILY tablet 10/06/18 Warfarin Sodium 5 mg PO HS 30 Days #30 tablet 10/06/18 Allopurinol [Zyloprim -] 150 mg PO DAILY 12/30/18 Furosemide [Lasix] 40 mg PO DAILY 12/30/18 Rosuvastatin [Crestor -] 3 mg PO HS 12/30/18 REVIEW OF SYSTEMS CONSTITUTIONAL: weight change Absent: fever, chills, diaphoresis, generalized weakness, malaise, loss of appetite, HEENT: Absent: rhinorrhea, nasal congestion, throat pain, throat swelling, difficulty swallowing, mouth swelling, ear pain, eye pain, visual changes CARDIOVASCULAR: peripheral edema Absent: chest pain, syncope, palpitations, irregular heart rate, lightheadedness , RESPIRATORY: shortness of breath, dyspnea with exertion, orthopnea Absent: cough, wheezing, stridor, hemoptysis GASTROINTESTINAL: Absent: abdominal pain, abdominal distension, nausea, vomiting, diarrhea, constipation, melena, hematochezia GENITOURINARY: Absent: dysuria, frequency, urgency, hesitancy, hematuria, flank pain, genital pain MUSCULOSKELETAL: Absent: myalgia, arthralgia, joint swelling, back pain, neck pain SKIN: Absent: rash, itching, pallor HEMATOLOGIC/IMMUNOLOGIC: Absent: easy bleeding, easy bruising, lymphadenopathy, frequent infections ENDOCRINE: unexplained weight gain Absent: unexplained weight loss, heat intolerance, cold intolerance NEUROLOGIC: unsteady gait Absent: headache, focal weakness or paresthesias, dizziness, seizure, mental status changes, bladder or bowel incontinence PSYCHIATRIC: Absent: anxiety, depression, suicidal or homicidal ideation, hallucinations. PHYSICAL EXAMINATION Vital Signs - 24 hr 12/30/18 12/30/18 12/30/18 13:06 15:07 16:18 Temperature 97.8 F Pulse Rate 51 L 69 Pulse Rate [ 57 L Left Apical] Respiratory 16 16 Rate Blood Pressure 101/38 L Blood Pressure 98/61 [Left Arm] O2 Sat by Pulse 100 96 97 Oximetry (%) 12/30/18 12/30/18 12/30/18 17:11 17:39 19:02 Temperature Pulse Rate Pulse Rate [ 53 L 56 L 60 Left Apical] Respiratory 97 H 16 16 Rate Blood Pressure Blood Pressure 98/41 L 102/48 L 98/52 L [Left Arm] O2 Sat by Pulse 97 97 96 Oximetry (%) GENERAL: Awake, alert, and fully oriented, in no acute distress. HEAD: Normal with no signs of trauma. EYES: Pupils equal, round and reactive to light, extraocular movements intact, sclera anicteric, conjunctiva clear. EARS, NOSE, THROAT: Ears normal, nares patent, oropharynx clear without exudates. Moist mucous membranes. NECK: Normal range of motion, supple without lymphadenopathy, JVD+ LUNGS: Decreased BS, No wheezes, and no crackles. Scalene muscle use. HEART: Regular rate and rhythm, normal S1 and S2 without murmur, rub or gallop. ABDOMEN: Soft, nontender, not distended, normoactive bowel sounds, no guarding, no rebound, no masses. Lower abdominal 3+ edema MUSCULOSKELETAL: Normal range of motion at all joints. No bony deformities or tenderness. No CVA tenderness. UPPER EXTREMITIES: 2+ radial pulses, warm, well-perfused. No cyanosis. No clubbing. No peripheral edema. LOWER EXTREMITIES: 2+ dorsal pedal pulse pulses, warm, well-perfused. No calf tenderness. 3+ edema. NEUROLOGICAL: Normal speech. Normal gait. PSYCHIATRIC: Cooperative. Good eye contact. Appropriate mood and affect. SKIN: Warm, dry, normal capillary refill. Laboratory Results - last 24 hr 12/30/18 12/30/18 12/30/18 15:00 15:00 15:00 WBC 4.0 RBC 2.32 L Hgb 8.1 L Hct 23.0 L D MCV 99.0 H MCH 34.7 H MCHC 35.1 RDW 16.4 H Plt Count 148 D MPV 8.1 Absolute Neuts (auto) 2.9 Neutrophils % 72.2 Lymphocytes % 12.7 D Monocytes % 12.0 H Eosinophils % 1.5 Basophils % 1.6 Nucleated RBC % 0 PT with INR 39.00 H INR 3.27 H Sodium 133 L Potassium 4.8 Chloride 100 Carbon Dioxide 25 Anion Gap 8 BUN 73 H Creatinine 3.2 H Creat Clearance w eGFR 18.38 Random Glucose 103 Calcium 8.1 L Total Bilirubin 0.4 AST 32 ALT 22 Alkaline Phosphatase 95 Creatine Kinase 238 Creatine Kinase Index 4.0 CK-MB (CK-2) 9.7 H Troponin I 0.06 H B-Natriuretic Peptide 6050.7 H Total Protein 6.3 L Albumin 3.0 L ASSESSMENT/PLAN: Pt. is a 88 y.o. M w/ HFpEF, HTN, HLD, COPD, Anemia, CKD, Carotid stenosis, A.Fib (Warfarin), CAD(s/p CABG), PCI(LUIS EDUARDO) presenting with worsening shortness of breath over the last few weeks. #Shortness of breath 2/2 CHF exacerbation recently d/c Aldactone decreased UOP Weight increase from 172lbs. (Dry weight) to now 185 lbs.; DAILY Weights Strict Is &Os. f/u stat ABG CXR positive for b/l pleural effusion Consult to Dr. Kassi flor (stated he will come in to see Pt.) Soft BP( 90s/50s)--> will start Dobutamine drip to increase BP and UOP. Would consider Lasix Drip as tolerated by BP and renal function Last Echo (01/10/19): severely dilated RA and LA, nml LV size, low-normal LV Fxn. Pt. state he has recent echo from 1 week ago f/u with Dr. Rosales's office. BNP: 6050 #ANGELA on CKD Creatinine elevated to 3.2, per lchart review baseline is ~1.8 Likely 2/2 hypotension and CHF Nephrology Consult #FEN encourage minimal PO intake 2L Fluid restriction monitor electrolytes and replete as needed Regular Diet #DVT Coumadin 10mg Hold Coumadin as IN is supratherapeutic @ 3.27 Visit type - Emergency Visit Emergency Visit: Yes ED Registration Date: 12/30/18 Care time: The patient presented to the Emergency Department on the above date and was hospitalized for further evaluation of their emergent condition. - New Patient This patient is new to me today: Yes Date on this admission: 12/31/18 - Critical Care Critical Care patient: No
[2018-12-31 00:06] LABS: ARTERIAL BLD GAS O2 SATURATION 62.8 % (95-98); ARTERIAL BLOOD GAS BASE EXCESS -0.7 meq/l (-2-2); ARTERIAL BLOOD GAS PCO2 42.1 mmHg (35-45); ARTERIAL BLOOD GAS pH 7.37 (7.35-7.45)
[2018-12-31 00:07] LABS: ALLENS TEST POSITIVE
[2018-12-31 00:12] LABS: ARTERIAL BLOOD GAS PO2 36 mmHg (80-105)
[2018-12-31 06:45] LABS: BASO % 1.1 % (0-2.0); EOS % 1.6 % (0-4.5); HEMATOCRIT 21.9 % (35.4-49); HEMOGLOBIN 7.6 GM/dL (11.7-16.9); LYMPH % 17.3 % (8-40); MCH 34.5 pg (25.7-33.7); MCHC 34.8 g/dl (32.0-35.9); MONO % 13.3 % (3.8-10.2); NEUT % 66.7 % (42.8-82.8); PLATELET COUNT 138 K/MM3 (134-434); RBC 2.21 M/mm3 (4.00-5.60); RDW 16.3 % (11.9-15.9); WHITE BLOOD COUNT 3.8 K/mm3 (4.0-10.0)
[2018-12-31 07:13] LABS: INR 3.09 (0.83-1.09); PROTHROMBIN TIME (PATIENT) 36.9 SEC (9.7-13.0)
[2018-12-31 07:25] LABS: ANION GAP 9 MMOL/L (8-16); BLOOD UREA NITROGEN 75 mg/dL (7-18); CALCIUM 8.1 mg/dL (8.5-10.1); CHLORIDE 101 mmol/L (98-107); CO2 24 mmol/L (21-32); CREATININE 3.6 mg/dL (0.55-1.3); GLUCOSE,RANDOM 91 mg/dL (74-106); MAGNESIUM 2.5 mg/dL (1.8-2.4); PHOSPHOROUS 6.1 mg/dL (2.5-4.9); POTASSIUM 4.6 mmol/L (3.5-5.1); SODIUM 134 mmol/L (136-145)
--- NOTE | 2018-12-31 08:52 | CONSULT ---
Consultation: REQUESTING PROVIDER: Dr. Florez CONSULT REQUEST FOR ICU: We have been asked to medically evaluate this patient for CHF exacerbation HISTORY OF PRESENT ILLNESS: Patient is an 88 year old male with a PMHx of HFpEF, HLD, HTN, COPD, anemia, Carotid stenosis, Atrial Fibrillation (On Warfari), CAD (s/p CABG and PCI) who presented for worsening shortness of breath for the last month. According to the patient, for the past week his shortness of breath significantly worsened to the point he was unable to walk due to his worsening LE edena. Patient reports using 4 pillows to sleep at home due to orthopnea as well as little urine output. Of note, patient's Aldactone was recently discontinued according to documentation by his agricultural real estate agent, Dr. Rosales. Patient's dry weight from last discharge was 172lbs and is now around 185lbs. In the ED patient was found to have an 02 saturation of 92% on room air with LE edema above the knee bilaterally. Patient was also found to have low BP and placed on a Doputamine drip. Patient was given 40mg IV Lasix yesterday but has not had urine output. Otherwise, patient denies any fever, chills, nausea, vomiting, chest pain, headaches, loss of consciousness, melena, hematochezia, hematuria, hemoptysis. PHMx: HFpEF HTN HLD COPD Anemia Carotid stenosis A.Fib (Warfarin) CAD(s/p CABG) PCI(LUIS EDUARDO) PSHx: L. Hip replacement (10 years ago) R. Hip replacement hemicolectomy CABG(2-vessel disease) ORIF of RFA Left collar bone fracture Social Hx: Smoking: Former, Quit 25 years ago Alcohol: Denies Drugs: Denies REVIEW OF SYSTEMS: CONSTITUTIONAL: Absent: fever, chills, diaphoresis, generalized weakness, malaise, loss of appetite, weight change HEENT: Absent: rhinorrhea, nasal congestion, throat pain, throat swelling, difficulty swallowing, mouth swelling, ear pain, eye pain, visual changes CARDIOVASCULAR: peripheral edema Absent: chest pain, syncope, palpitations, irregular heart rate, lightheadedness RESPIRATORY: shortness of breath, dyspnea with exertion, orthopnea Absent: cough, wheezing, stridor, hemoptysis GASTROINTESTINAL: diarrhea Absent: abdominal pain, abdominal distension, nausea, vomiting, constipation, melena, hematochezia GENITOURINARY: Absent: dysuria, frequency, urgency, hesitancy, hematuria, flank pain, genital pain MUSCULOSKELETAL: Absent: myalgia, arthralgia, joint swelling, back pain, neck pain SKIN: Absent: rash, itching, pallor HEMATOLOGIC/IMMUNOLOGIC: Absent: easy bleeding, easy bruising, lymphadenopathy, frequent infections ENDOCRINE: Absent: unexplained weight gain, unexplained weight loss, heat intolerance, cold intolerance NEUROLOGIC: Absent: headache, focal weakness or paresthesias, dizziness, unsteady gait, seizure, mental status changes, bladder or bowel incontinence PSYCHIATRIC: Absent: anxiety, depression, suicidal or homicidal ideation, hallucinations. PHYSICAL EXAMINATION Vital Signs 12/31/18 12/31/18 07:43 07:52 Temperature 98.0 F 98.2 F Pulse Rate Pulse Rate [ 72 70 Left Apical] Pulse Rate [ 72 Left Radial] Respiratory 16 16 Rate Blood Pressure Blood Pressure 76/33 L 106/34 L [Left Arm] O2 Sat by Pulse 96 96 Oximetry (%) GENERAL: Awake, alert, and fully oriented, in no acute distress. HEAD: Normal with no signs of trauma. EYES: Pupils equal, round and reactive to light, extraocular movements intact, sclera anicteric, conjunctiva clear. ENT: Oropharynx clear without exudates. Moist mucous membranes. NECK: (+) JVD LUNGS: Decreased breath sounds with no accessory muscle use or crackles at lung bases HEART: bradycardic with irregularly irregular rhythm, normal S1 and S2. 2/6 Systolic murmur ABDOMEN: Soft, nontender, distended with fluid shift, normoactive bowel sounds. Multiple healed scars MUSCULOSKELETAL: No CVA tenderness. EXTREMITIES: 3+ Pitting edema bilaterally NEUROLOGICAL: No focal deficits. PSYCHIATRIC: Cooperative. Good eye contact. Appropriate mood and affect. SKIN: Chronic venous stasis bilaterally Laboratory Results 12/31/18 06:00 12/31/18 06:00 Active Medications Generic Name Dose Route Start Last Admin Trade Name Freq PRN Reason Stop Dose Admin Chlorhexidine Gluconate 1 applic 12/31/18 22:00 Hibiclens For Decolonization - TP HS JAYCE Dobutamine HCl/Dextrose 250,000 mcg in 250 mls @ 25.175 mls/hr 12/30/18 23:00 12/31/18 01:32 Dobutamine 250 Mg/D5w - IV 5 mcg/kg/min TITR JAYCE 25.175 mls/hr Administration Protocol 5 MCG/KG/MIN Mupirocin 1 applic 12/31/18 10:00 Bactroban Ointment (For Decolonization) - NS 01/05/19 09:59 BID JAYCE IMAGES: CXR(12/30/18): New bilateral Pulmonary and Pleural changes from 10/06/18 ASSESSMENT/PLAN: Patient is an 88 year old male who presented for worsening shortness of breath and was found to have CHF exacerbation with hypotension. Patient admitted to ICU for further monitoring and management. NEURO -Awake, Alert and oriented -On no sedation PULMONARY #Acute Hypoxic Respiratory Failure -Likely secondary to CHF exacerbation. -Placed on BiPaP -40 Lasix IV given in the ED yesterday with no Urine output -Likely requires higher IV Lasix due to ANGELA on CKD. 80mg IV Lasix ordered stat -Will also need to rule out urinary obstruction -Spoke to agricultural real estate agent and reports that patient has diastolic CHF and needs to be on Dopamine. Dobutamine drip stopped and switched to dopamine -Strict I&O's -Daily weights -Cardio consult #COPD -No acute exacerbation -Albuterol nebulizer PRN -Maintain 02 Saturation >90% CARDIOLOGY #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 -Likely Cardio-Renal Syndrome type 1? -Last Echo (01/10/19): severely dilated RA and LA, nml LV size, low-normal LV Fxn.. Repeat ECHO ordered -80mg IV lasix ordered -Patient with low urine output -Started on Dopamine Drip as patient has low BP -Continue Beta Truman and hold CAROLYN/ARB due to ANGELA -Ranexa 500 bid -Low sodium diet -Lester placed for strict I&O's -Daily weights (78kg on last discharge 10/06/18--> 93.9kg today) #Permanent atrial fibrillation -[id number]=5 -Patient on Warfarin but is currently Supratherapeutic -Will hold Warfarin and repeat level tomorrow -Monitor INR #CAD s/p CABG -s/p PCI/LUIS EDUARDO to LAD -Continue IV Furosemide, BB, ASA, and Rosuvastatin #HTN -Hold anti-htn medications as patient is hypotensive -Titrate Dopamine drip to maintain MAP >65 -Continue to monitor BP #HLD -Continue home medication Rosuvastatin 3mg HS NEPHROLOGY #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 Rule out Urinary Obstruction -Baseline around 1.5. Today 3.6 -Increase diuresis with IV Furosemide 80mg once today -Kidney/Bladder U/S ordered -Avoid nephrotoxic medications -Renally dose medications -Will hold CAROLYN/ARB for now -Nephrology consult placed -Monitor BMP INFECTIOUS DISEASE #UTI -QSOFA Score= 2 -U/A positive with LE 2+ and >100 Urine WBC -Ceftriaxone 1gm IVPB started -Urine culture pending HEMATOLOGY #Supratherapeutic INR -Hold Warfarin -Avoid AC -Monitor INR #Macrocytic Anemia -With possible superimposed chronic anemia -Likely from ANGELA on CKD -Renal consult placed -Continue to monitor CBC F/E/N -On no fluids -Hyperphosphatemia and Hypermagnesemia. Continue to monitor -Sodium controlled diet Prophylaxis -SCD's for DVT as patient has low hgb -No GI required Disposition -Full code -Requires ICU monitoring due to dopamine ip Anu Morales [id number] Visit type - Emergency Visit Emergency Visit: Yes ED Registration Date: 12/30/18 Care time: The patient presented to the Emergency Department on the above date and was hospitalized for further evaluation of their emergent condition. - New Patient This patient is new to me today: Yes Date on this admission: 12/31/18 - Critical Care Critical Care patient: Yes Total Critical Care Time (in minutes): 36 Critical Care Statement: The care of this patient involved high complexity decision making to prevent further life threatening deterioration of the patient 's condition and/or to evaluate & treat vital organ system(s) failure or risk of failure.
[2018-12-31 09:53] LABS: URINE APPEARANCE TURBID; URINE BILIRUBIN NEGATIVE (<2.0 mg/dL); URINE COLOR AMBER; URINE GLUCOSE (UA) NEGATIVE (NEGATIVE); URINE KETONE NEGATIVE (NEGATIVE); URINE LEUK ESTERASE 2+ (NEGATIVE); URINE NITRITE NEGATIVE (NEGATIVE); URINE PROTEIN 3+ (NEGATIVE); URINE UROBILINOGEN NEGATIVE mg/dL (0.2-1.0)
--- NOTE | 2018-12-31 10:05 | PN ---
Teaching Attending Note Name of Resident: Ernestina Hodges ATTENDING PHYSICIAN STATEMENT I saw and evaluated the patient. I reviewed the resident's note and discussed the case with the resident. I agree with the resident's findings and plan as documented with exceptions below. SUBJECTIVE: Patient seen and examined, reports dyspnea. Also weight gain over last 2 weeks after being taken off diuretics. Reports leg swelling, abdominal distension and progressive dyspnea on exertion. Denies any chest pain, palpitations or dizziness currently. OBJECTIVE: Vital Signs Period Temp Pulse Resp BP Sys/Ascencio Pulse Ox Last 24 Hr 97.8 F-98.2 F 51-72 16-97 76-110/33-73 92-100 When evaluated SBP 80s, oxygenation 80s on 3 L (Increased to 91 on 4L) tachypneic to 30s General: tachypneic, respiratory distress, use of accessory muscles of respiration Neck: post JVD, neck vein distension Chest: decreased air entry all over, limited exam Abdomen:soft, distension, NT throughout Extremities 3+ pedal pitting edema CVS:S1S2 irregular Home Medications Medication Instructions Recorded Ranolazine [Ranexa -] 500 mg PO BID 03/22/12 Cholecalciferol (Vitamin D3) 2,000 unit PO DAILY 03/13/18 [Vitamin D -] Vit A/Vit C/Vit E/Zinc/Copper 1 each PO DAILY 03/13/18 [Preservision Areds Tablet] Metoprolol Succinate [Toprol Xl] 25 mg PO DAILY 03/18/18 Losartan Potassium [Cozaar -] 25 mg PO DAILY tablet 10/06/18 Warfarin Sodium 5 mg PO HS 30 Days #30 tablet 10/06/18 Allopurinol [Zyloprim -] 150 mg PO DAILY 12/30/18 Furosemide [Lasix] 40 mg PO DAILY 12/30/18 Rosuvastatin [Crestor -] 3 mg PO HS 12/30/18 Active Medications Chlorhexidine Gluconate (Hibiclens For Decolonization -) 1 applic TP HS [facility] Dobutamine HCl/Dextrose (Dobutamine 250 Mg/D5w -) 250,000 mcg in 250 mls @ 25.175 mls/hr IV TITR JAYCE; Protocol Last Admin: 12/31/18 01:32 Dose: 5 mcg/kg/min, 25.175 mls/hr Mupirocin (Bactroban Ointment (For Decolonization) -) 1 applic NS BID JAYCE Stop: 01/05/19 09:59 Laboratory Results - last 24 hr 12/30/18 12/30/18 12/30/18 15:00 15:00 15:00 WBC 4.0 RBC 2.32 L Hgb 8.1 L Hct 23.0 L D MCV 99.0 H MCH 34.7 H MCHC 35.1 RDW 16.4 H Plt Count 148 D MPV 8.1 Absolute Neuts (auto) 2.9 Neutrophils % 72.2 Lymphocytes % 12.7 D Monocytes % 12.0 H Eosinophils % 1.5 Basophils % 1.6 Nucleated RBC % 0 PT with INR 39.00 H INR 3.27 H Anticoagulation Therapy Puncture Site ABG pH ABG pCO2 at Pt Temp ABG pO2 at Pt Temp ABG HCO3 ABG O2 Sat (Measured) ABG O2 Content ABG Base Excess Juan Carlos Test O2 Delivery Device Oxygen Flow Rate Vent Mode Vent Rate Mechanical Rate Pressure Support Vent Sodium 133 L Potassium 4.8 Chloride 100 Carbon Dioxide 25 Anion Gap 8 BUN 73 H Creatinine 3.2 H Creat Clearance w eGFR 18.38 Random Glucose 103 Calcium 8.1 L Phosphorus Magnesium Total Bilirubin 0.4 AST 32 ALT 22 Alkaline Phosphatase 95 Creatine Kinase 238 Creatine Kinase Index 4.0 CK-MB (CK-2) 9.7 H Troponin I 0.06 H B-Natriuretic Peptide 6050.7 H Total Protein 6.3 L Albumin 3.0 L Urine Color Urine Appearance Urine pH Ur Specific [place] Urine Protein Urine Glucose (UA) Urine Ketones Urine Blood Urine Nitrite Urine Bilirubin Urine Urobilinogen Ur Leukocyte Esterase 12/30/18 12/31/18 12/31/18 23:50 01:15 06:00 WBC 3.8 L RBC 2.21 L Hgb 7.6 L Hct 21.9 L MCV 99.0 H MCH 34.5 H MCHC 34.8 RDW 16.3 H Plt Count 138 MPV 8.0 Absolute Neuts (auto) 2.5 Neutrophils % 66.7 Lymphocytes % 17.3 D Monocytes % 13.3 H Eosinophils % 1.6 Basophils % 1.1 Nucleated RBC % 0 PT with INR INR Anticoagulation Therapy No Result Required. Puncture Site Right brachial ABG pH 7.37 ABG pCO2 at Pt Temp 42.1 ABG pO2 at Pt Temp 36 L* ABG HCO3 23.9 ABG O2 Sat (Measured) 62.8 L ABG O2 Content No Result Required. ABG Base Excess -0.7 Juan Carlos Test Positive O2 Delivery Device No Result Required. Oxygen Flow Rate Room air Vent Mode No Result Required. Vent Rate No Result Required. Mechanical Rate No Result Required. Pressure Support Vent No Result Required. Sodium Potassium Chloride Carbon Dioxide Anion Gap BUN Creatinine Creat Clearance w eGFR Random Glucose Calcium Phosphorus Magnesium Total Bilirubin AST ALT Alkaline Phosphatase Creatine Kinase Creatine Kinase Index CK-MB (CK-2) Troponin I 0.06 H B-Natriuretic Peptide Total Protein Albumin Urine Color Urine Appearance Urine pH Ur Specific [place] Urine Protein Urine Glucose (UA) Urine Ketones Urine Blood Urine Nitrite Urine Bilirubin Urine Urobilinogen Ur Leukocyte Esterase 12/31/18 12/31/18 12/31/18 06:00 07:26 09:29 WBC RBC Hgb Hct MCV MCH MCHC RDW Plt Count MPV Absolute Neuts (auto) Neutrophils % Lymphocytes % Monocytes % Eosinophils % Basophils % Nucleated RBC % PT with INR 36.90 H INR 3.09 H Anticoagulation Therapy Puncture Site ABG pH ABG pCO2 at Pt Temp ABG pO2 at Pt Temp ABG HCO3 ABG O2 Sat (Measured) ABG O2 Content ABG Base Excess Juan Carlos Test O2 Delivery Device Oxygen Flow Rate Vent Mode Vent Rate Mechanical Rate Pressure Support Vent Sodium 134 L Potassium 4.6 Chloride 101 Carbon Dioxide 24 Anion Gap 9 BUN 75 H Creatinine 3.6 H Creat Clearance w eGFR 16.04 Random Glucose 91 Calcium 8.1 L Phosphorus 6.1 H Magnesium 2.5 H Total Bilirubin AST ALT Alkaline Phosphatase Creatine Kinase 236 Creatine Kinase Index CK-MB (CK-2) Troponin I 0.06 H B-Natriuretic Peptide Total Protein Albumin Urine Color [place] Urine Appearance Turbid Urine pH 5.0 Ur Specific [place] 1.015 Urine Protein 3+ H Urine Glucose (UA) Negative Urine Ketones Negative Urine Blood 3+ H Urine Nitrite Negative Urine Bilirubin Negative Urine Urobilinogen Negative Ur Leukocyte Esterase 2+ H CXR images suggestive of congestion, follow up official read Telemetry: Afib EKG: poor baseline, Aib ASSESSMENT AND PLAN: 88 yom CAD s/p CABG (JHAVERI to mLAD, SVG to RPDA), s/p PCI/LUIS EDUARDO to LAD, persistent AF on Coumadin, diastolic dysfunction with h/o failure, HTN, hypercholesterolemia and carotid stenosis, CKD stage II-III (last cr 1.8 in 2018)reportedly taken off lasix/aldacone, planned for PPM on 01/02 at [facility] admitted with progressive dypsnea. -Acute on chronic diastolic+/- systolic heart failure exacerbation -Acute hypoxic repiratory failure -Hypotension suspect cardiogenic -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, suspect cardiorenal from CHF -Perisistent Atrial fibrillation on coumadin -Coumadin coagulopathy -CAD s/p CABG (JHAVERI to mLAD, SVG to RPDA), s/p PCI/LUIS EDUARDO to LAD -HTN -HLD -Carotid stenosis Plan: Patient noted tachypneic, hpyoxic and hpyotensive in the ED. Place on bipap, dobutamine drip titrated up. lasix drip once hemodynamics improved. Follow up cardiology input. Strict I/os and daily weights. renal consult. Lester placed, strict I/Os. Hold ARB/anti-hypertensives, avoid nephrotoxins Lasix drip once hemodynamics improve on dobutamine drip. Hold coumadin, trend INR. Follow up with cardiology about eventual PPM plan, ? transfer once stable. Continue ranexa/statin DVTPPX on coumadin Discussed with Dr. Virk, patient accepted to ICU Care co-cordinated with ED. Plan discussed with patient in detail, all questions answered Total critical care time spent at bedside 35 min.
[2018-12-31] MEDS ORDERED: FUROSEMIDE 40 MG/4 ML INJECTABLE VIAL IVPUSH ONE (10:24)
[2018-12-31] MEDS ORDERED: CEFTRIAXONE 2 GM in DEXTROSE 5%-WATER 100 ML IVPB ONE (10:30)
[2018-12-31 10:33] LABS: EPI CELLS FEW /HPF (FEW); URINE BACTERIA FEW /hpf (NONE SEEN); URINE HYALINE CAST 187 /lpf; URINE MUCUS RARE
--- NOTE | 2018-12-31 10:44 | EKG ---
Test Reason : Blood Pressure : / mmHG Vent. Rate : 051 BPM Atrial Rate : 051 BPM P-R Int : 000 ms QRS Dur : 102 ms QT Int : 466 ms P-R-T Axes : 000 077 -30 degrees QTc Int : 429 ms JUNCTIONAL RHYTHM LOW VOLTAGE QRS CANNOT RULE OUT ANTERIOR INFARCT , AGE UNDETERMINED ABNORMAL ECG Confirmed by Tee Maravilla MD ([id number]) on 12/31/2018 10:43:34 AM Referred By: Confirmed By:Tee Maravilla MD
[2018-12-31] MEDS ORDERED: DEXTROSE 5%-WATER 100 ML IVPB ONE (11:26)
--- NOTE | 2018-12-31 11:47 | CON.CARD ---
Consult Consult Specialty:: Cardiology Referred by:: Shadi Robertson Reason for Consultation:: Cardiac evaluation - History of Present Illness Chief Complaint: Shortness of breath History of Present Illness: Patient is an 88 year old male well known to our service (sees Dr. Celeste Rosales) with underlying history of CAD s/p CABG (JHAVERI to mLAD, SVG to RPDA), s /p PCI/LUIS EDUARDO to LAD, persistent AF on Coumadin, diastolic dysfunction with history of acute on chronic heart failure, HTN, hypercholesterolemia and carotid stenosis who presents with worsening shortness of breath over the past few weeks. Patient was scheduled for PPM implant this at [facility]. He also complained of orthopnea and stated that his urine output worsened also. He is in ICU this AM on BIPAP. He is awake and alert. He denies chest pain or palpitations. He is tolerating positive airway mask. No fever or chills. Denies headache or lightheadedness. Denies nausea, vomiting, diarrhea or abdominal pain. Christina catheter was inserted and currently does not have much urine output. Dobutamine has been stopped and currently a little hypotensive. - History Source History Provided By: Patient, Medical Record Limitations to Obtaining History: Clinical Condition - Past Medical History Cardio/Vascular: Yes: AFIB, CAD, CHF, HTN, Hyperlipdemia Renal/: Yes: Renal Inusuff Musculoskeletal: Yes: Other (spinal stenosis) - Past Surgical History Past Surgical History: Yes: CABG, Colectomy, Hernia Repair, Joint Replacement (b /l hip replacement ORIF right arm), Stent - Alcohol/Substance Use Hx Alcohol Use: No History of Substance Use: reports: None - Smoking History Smoking history: Former smoker Have you smoked in the past 12 months: No Aproximately how many cigarettes per day: 0 If you are a former smoker, when did you quit?: 25YR - Social History ADL: Independent History of Recent Travel: No Home Medications - Allergies Allergies/Adverse Reactions: Allergies Allergy/AdvReac Type Severity Reaction Status Date / Time No Known Allergies Allergy Verified 12/30/18 13:06 - Home Medications Home Medications: Ambulatory Orders Ranolazine [Ranexa -] 500 mg PO BID 03/22/12 Cholecalciferol (Vitamin D3) [Vitamin D -] 2,000 unit PO DAILY 03/13/18 Vit A/Vit C/Vit E/Zinc/Copper [Preservision Areds Tablet] 1 each PO DAILY Metoprolol Succinate [Toprol Xl] 25 mg PO DAILY 03/18/18 Losartan Potassium [Cozaar -] 25 mg PO DAILY tablet 10/06/18 Warfarin Sodium 5 mg PO HS 30 Days #30 tablet 10/06/18 Allopurinol [Zyloprim -] 150 mg PO DAILY 12/30/18 Furosemide [Lasix] 40 mg PO DAILY 12/30/18 Rosuvastatin [Crestor -] 3 mg PO HS 12/30/18 Family Disease History - Family Disease History Family Disease History: Heart Disease: Mother, Brother, Other: Father Review of Systems - Review of Systems Constitutional: denies: Chills, Fever Cardiovascular: reports: Shortness of Breath. denies: Chest Pain, Palpitations Respiratory: reports: Orthopnea, SOB, SOB on Exertion. denies: Cough, Hemoptysis, PND Gastrointestinal: denies: Abdominal Pain, Constipation, Diarrhea, Melena, Nausea , Rectal Bleeding, Vomiting Neurological: denies: Dizziness, Headache, Seizure, Syncope Vital Signs: Vital Signs Temperature 97.5 F L 12/31/18 10:43 Pulse Rate 63 12/31/18 11:11 Respiratory Rate 21 H 12/31/18 11:11 Blood Pressure 98/40 L 12/31/18 11:11 O2 Sat by Pulse Oximetry (%) 100 12/31/18 11:26 Neck: Yes: Supple Respiratory: Yes: On BiPap Gastrointestinal: Yes: Normal Bowel Sounds, Soft. No: Tenderness Cardiovascular: Yes: Regular Rate and Rhythm JVD: No PMI: Non-Displaced Heart Sounds: Yes: S1, S2. No: Gallop Murmur: Yes: Systolic Murmur, Grade 2 Edema: Yes Edema: LLE: 2+, RLE: 2+ - Other Data Labs, Other Data: CBC, BMP 12/31/18 06:00 12/31/18 06:00 INR, PTT INR 3.09 (0.83-1.09) H 12/31/18 07:26 Troponin, BNP 12/30/18 12/31/18 12/31/18 15:00 01:15 06:00 Troponin I 0.06 H 0.06 H 0.06 H B-Natriuretic Peptide 6050.7 H Laboratory Results - last 24 hr 12/30/18 12/30/18 12/30/18 15:00 15:00 15:00 WBC 4.0 RBC 2.32 L Hgb 8.1 L Hct 23.0 L D MCV 99.0 H MCH 34.7 H MCHC 35.1 RDW 16.4 H Plt Count 148 D MPV 8.1 Absolute Neuts (auto) 2.9 Neutrophils % 72.2 Lymphocytes % 12.7 D Monocytes % 12.0 H Eosinophils % 1.5 Basophils % 1.6 Nucleated RBC % 0 PT with INR 39.00 H INR 3.27 H Anticoagulation Therapy Puncture Site ABG pH ABG pCO2 at Pt Temp ABG pO2 at Pt Temp ABG HCO3 ABG O2 Sat (Measured) ABG O2 Content ABG Base Excess Juan Carlos Test O2 Delivery Device Oxygen Flow Rate Vent Mode Vent Rate Mechanical Rate Pressure Support Vent Sodium 133 L Potassium 4.8 Chloride 100 Carbon Dioxide 25 Anion Gap 8 BUN 73 H Creatinine 3.2 H Creat Clearance w eGFR 18.38 Random Glucose 103 Calcium 8.1 L Phosphorus Magnesium Total Bilirubin 0.4 AST 32 ALT 22 Alkaline Phosphatase 95 Creatine Kinase 238 Creatine Kinase Index 4.0 CK-MB (CK-2) 9.7 H Troponin I 0.06 H B-Natriuretic Peptide 6050.7 H Total Protein 6.3 L Albumin 3.0 L Urine Color Urine Appearance Urine pH Ur Specific [place] Urine Protein Urine Glucose (UA) Urine Ketones Urine Blood Urine Nitrite Urine Bilirubin Urine Urobilinogen Ur Leukocyte Esterase Urine WBC (Auto) Urine RBC (Auto) Ur Epithelial Cells Urine Bacteria Hyaline Casts Urine Mucus 12/30/18 12/31/18 12/31/18 23:50 01:15 06:00 WBC 3.8 L RBC 2.21 L Hgb 7.6 L Hct 21.9 L MCV 99.0 H MCH 34.5 H MCHC 34.8 RDW 16.3 H Plt Count 138 MPV 8.0 Absolute Neuts (auto) 2.5 Neutrophils % 66.7 Lymphocytes % 17.3 D Monocytes % 13.3 H Eosinophils % 1.6 Basophils % 1.1 Nucleated RBC % 0 PT with INR INR Anticoagulation Therapy No Result Required. Puncture Site Right brachial ABG pH 7.37 ABG pCO2 at Pt Temp 42.1 ABG pO2 at Pt Temp 36 L* ABG HCO3 23.9 ABG O2 Sat (Measured) 62.8 L ABG O2 Content No Result Required. ABG Base Excess -0.7 Juan Carlos Test Positive O2 Delivery Device No Result Required. Oxygen Flow Rate Room air Vent Mode No Result Required. Vent Rate No Result Required. Mechanical Rate No Result Required. Pressure Support Vent No Result Required. Sodium Potassium Chloride Carbon Dioxide Anion Gap BUN Creatinine Creat Clearance w eGFR Random Glucose Calcium Phosphorus Magnesium Total Bilirubin AST ALT Alkaline Phosphatase Creatine Kinase Creatine Kinase Index CK-MB (CK-2) Troponin I 0.06 H B-Natriuretic Peptide Total Protein Albumin Urine Color Urine Appearance Urine pH Ur Specific [place] Urine Protein Urine Glucose (UA) Urine Ketones Urine Blood Urine Nitrite Urine Bilirubin Urine Urobilinogen Ur Leukocyte Esterase Urine WBC (Auto) Urine RBC (Auto) Ur Epithelial Cells Urine Bacteria Hyaline Casts Urine Mucus 12/31/18 12/31/18 12/31/18 06:00 07:26 09:29 WBC RBC Hgb Hct MCV MCH MCHC RDW Plt Count MPV Absolute Neuts (auto) Neutrophils % Lymphocytes % Monocytes % Eosinophils % Basophils % Nucleated RBC % PT with INR 36.90 H INR 3.09 H Anticoagulation Therapy Puncture Site ABG pH ABG pCO2 at Pt Temp ABG pO2 at Pt Temp ABG HCO3 ABG O2 Sat (Measured) ABG O2 Content ABG Base Excess Juan Carlos Test O2 Delivery Device Oxygen Flow Rate Vent Mode Vent Rate Mechanical Rate Pressure Support Vent Sodium 134 L Potassium 4.6 Chloride 101 Carbon Dioxide 24 Anion Gap 9 BUN 75 H Creatinine 3.6 H Creat Clearance w eGFR 16.04 Random Glucose 91 Calcium 8.1 L Phosphorus 6.1 H Magnesium 2.5 H Total Bilirubin AST ALT Alkaline Phosphatase Creatine Kinase 236 Creatine Kinase Index 4.4 CK-MB (CK-2) 10.6 H Troponin I 0.06 H B-Natriuretic Peptide Total Protein Albumin Urine Color [place] Urine Appearance Turbid Urine pH 5.0 Ur Specific [place] 1.015 Urine Protein 3+ H Urine Glucose (UA) Negative Urine Ketones Negative Urine Blood 3+ H Urine Nitrite Negative Urine Bilirubin Negative Urine Urobilinogen Negative Ur Leukocyte Esterase 2+ H Urine WBC (Auto) 161 Urine RBC (Auto) 571 Ur Epithelial Cells Few Urine Bacteria Few Hyaline Casts 187 Urine Mucus Rare ? junctional rhythm ? AF Imaging - Results Chest X-ray: Report Reviewed (Pulmonary and pleural changes) EKG: Report Reviewed Problem List - Problems (1) [id number] kidney injury Code(s): N17.9 - ACUTE KIDNEY FAILURE, UNSPECIFIED; N18.9 - CHRONIC KIDNEY DISEASE, UNSPECIFIED Qualifiers: Acute renal failure type: unspecified Chronic kidney disease stage: unspecified stage Qualified Code(s): N17.9 - Acute kidney failure, unspecified ; N18.9 - Chronic kidney disease, unspecified (2) Acute on chronic diastolic (congestive) heart failure Code(s): I50.33 - ACUTE ON CHRONIC DIASTOLIC (CONGESTIVE) HEART FAILURE (3) CAD (coronary artery disease) Code(s): I25.10 - ATHSCL HEART DISEASE OF [place] CORONARY ARTERY W/O ANG PCTRS Qualifiers: Coronary Disease-Associated Artery/Lesion type: [place] artery [place] vs. transplanted heart: [place] heart Associated angina: without angina Qualified Code(s): I25.10 - Atherosclerotic heart disease of [place] coronary artery without angina pectoris (4) COPD (chronic obstructive pulmonary disease) Code(s): J44.9 - CHRONIC OBSTRUCTIVE PULMONARY DISEASE, UNSPECIFIED Qualifiers: COPD type: unspecified COPD Qualified Code(s): J44.9 - Chronic obstructive pulmonary disease, unspecified (5) Chronic anemia Code(s): D64.9 - ANEMIA, UNSPECIFIED (6) HTN (hypertension) Code(s): I10 - ESSENTIAL (PRIMARY) HYPERTENSION Qualifiers: Hypertension type: essential hypertension Qualified Code(s): I10 - Essential (primary) hypertension (7) Hx of CABG Code(s): Z95.1 - PRESENCE OF AORTOCORONARY BYPASS GRAFT (8) Mitral regurgitation Code(s): I34.0 - NONRHEUMATIC MITRAL (VALVE) INSUFFICIENCY Qualifiers: Cardiac valve disease etiology: nonrheumatic Qualified Code(s): I34.0 - Nonrheumatic mitral (valve) insufficiency Assessment/Plan 1. Acute on chronic LV diastolic failure with moderate to severe TR 2. CAD s/p CABG and PCI/LUIS EDUARDO, angina 3. Permanent atrial fibrillation [id number] of 5 4. HTN/HCVD 5. Hypercholesterolemia 6. COPD 7. Anemia 8. Acute on CKD 9. Moderate carotid stenosis PLAN: 1. IV diuresis with monitoring renal function and electrolytes. Monitor renal output with christina catheter 2. Continue Losartan 25 qd, Toprol XL 12.5 qd, Ranexa 500 bid and Crestor 5 qd when feasible. In the interim, patient is being put on Dopamine drip low dose 3. Coumadin dose per INR keep btw 2-3 4. BIPAP Further plans are to follow Bakari Solitario MD
[2018-12-31] MEDS: DOPAMINE 400 MG/D5W - 400,000 MCG/250 ML INFUS.BAG IVPB SCH (11:49)
--- NOTE | 2018-12-31 12:37 | PN ---
Teaching Attending Note Name of Resident: Anu Morales ATTENDING PHYSICIAN STATEMENT I saw and evaluated the patient. I reviewed the resident's note and discussed the case with the resident. I agree with the resident's findings and plan as documented. SUBJECTIVE: Pt seen and examined in the ICU. Remains on BiPAP, dopamine gtt started for hypotension. States breathing better on BiPAP. OBJECTIVE: Vital Signs Period Temp Pulse Resp BP Sys/Ascencio Pulse Ox Last 24 Hr 97.5 F-98.2 F 51-72 16-97 76-110/33-73 92-100 Intake & Output 12/28/18 12/29/18 12/30/18 12/31/18 23:59 23:59 23:59 23:59 Output Total 300 Balance -300 Weight 83.915 kg 93.9 kg Gen: mildly tachypneic on BiPAP Heart: RRR Lung: scattered rhonchi Abd: soft, nontender Ext: + edema CBC, BMP 12/31/18 06:00 12/31/18 06:00 Active Medications Chlorhexidine Gluconate (Hibiclens For Decolonization -) 1 applic TP HS JAYCE Dopamine HCl/Dextrose (Dopamine 400 Mg/D5w -) 400,000 mcg in 250 mls @ 17.606 mls/hr IVPB TITR JAYCE; Protocol Last Admin: 12/31/18 11:49 Dose: 5 mcg/kg/min, 17.606 mls/hr Mupirocin (Bactroban Ointment (For Decolonization) -) 1 applic NS BID JAYCE Stop: 01/05/19 11:14 ASSESSMENT AND PLAN: Acute Hypoxic Respiratory Failure Acute on Chronic Diastolic Heart Failure Atrial Fibrillation Acute on Chronic Renal Failure COPD Anemia Hypercholesterolemia - IV lasix - monitor urine output, creatinine - daily weights - echocardiogram - titrate dopamine gtt to maintain MAP>65 - O2 to keep SpO2 >90% - BiPAP to assist in work of breathing - renal/bladder ultrasound - rate control - continue anticoagulation - ICU monitoring critical care time spent in reviewing chart, evaluating patient and formulating plan 35 min
[2018-12-31 13:11] LABS: ARTERIAL BLOOD GAS BASE EXCESS -1.9 meq/l (-2-2); ARTERIAL BLOOD GAS PO2 115 mmHg (80-105); ARTERIAL BLOOD GAS pH 7.34 (7.35-7.45)
[2018-12-31 13:13] LABS: ALLENS TEST POSITIVE
--- NOTE | 2018-12-31 13:45 | PN ---
Physical Exam: SUBJECTIVE: Patient seen and examined; patient seen in ER; tachypniec; hypoxic with accessory muscle use and hypotensive; OBJECTIVE: Vital Signs Period Temp Pulse Resp BP Sys/Ascencio Pulse Ox Last 24 Hr 97.5 F-98.2 F 53-72 16-97 75-110/33-73 96-100 GENERAL: The patient is awake, alert, and fully oriented; tachypniec HEAD: Normal with no signs of trauma. LUNGS: scattered rhonchi HEART: Regular rate and irregular rhythm, S1, S2 without murmur, rub or gallop. ABDOMEN: Soft, nontender, nondistended, normoactive bowel sounds, no guarding, no rebound, no hepatosplenomegaly, no masses. EXTREMITIES: 2+ pulses, warm, well-perfused, b/l 2+ edema NEUROLOGICAL: Cranial nerves II through XII grossly intact. Normal speech, gait not observed. Laboratory Results - last 24 hr 12/30/18 12/30/18 12/30/18 15:00 15:00 15:00 WBC 4.0 RBC 2.32 L Hgb 8.1 L Hct 23.0 L D MCV 99.0 H MCH 34.7 H MCHC 35.1 RDW 16.4 H Plt Count 148 D MPV 8.1 Absolute Neuts (auto) 2.9 Neutrophils % 72.2 Lymphocytes % 12.7 D Monocytes % 12.0 H Eosinophils % 1.5 Basophils % 1.6 Nucleated RBC % 0 PT with INR 39.00 H INR 3.27 H Anticoagulation Therapy Puncture Site ABG pH ABG pCO2 at Pt Temp ABG pO2 at Pt Temp ABG HCO3 ABG O2 Sat (Measured) ABG O2 Content ABG Base Excess Juan Carlos Test O2 Delivery Device Oxygen Flow Rate Vent Mode Vent Rate Mechanical Rate Pressure Support Vent Sodium 133 L Potassium 4.8 Chloride 100 Carbon Dioxide 25 Anion Gap 8 BUN 73 H Creatinine 3.2 H Creat Clearance w eGFR 18.38 Random Glucose 103 Calcium 8.1 L Phosphorus Magnesium Total Bilirubin 0.4 AST 32 ALT 22 Alkaline Phosphatase 95 Creatine Kinase 238 Creatine Kinase Index 4.0 CK-MB (CK-2) 9.7 H Troponin I 0.06 H B-Natriuretic Peptide 6050.7 H Total Protein 6.3 L Albumin 3.0 L Urine Color Urine Appearance Urine pH Ur Specific [place] Urine Protein Urine Glucose (UA) Urine Ketones Urine Blood Urine Nitrite Urine Bilirubin Urine Urobilinogen Ur Leukocyte Esterase Urine WBC (Auto) Urine RBC (Auto) Ur Epithelial Cells Urine Bacteria Hyaline Casts Urine Mucus 12/30/18 12/31/18 12/31/18 23:50 01:15 06:00 WBC 3.8 L RBC 2.21 L Hgb 7.6 L Hct 21.9 L MCV 99.0 H MCH 34.5 H MCHC 34.8 RDW 16.3 H Plt Count 138 MPV 8.0 Absolute Neuts (auto) 2.5 Neutrophils % 66.7 Lymphocytes % 17.3 D Monocytes % 13.3 H Eosinophils % 1.6 Basophils % 1.1 Nucleated RBC % 0 PT with INR INR Anticoagulation Therapy No Result Required. Puncture Site Right brachial ABG pH 7.37 ABG pCO2 at Pt Temp 42.1 ABG pO2 at Pt Temp 36 L* ABG HCO3 23.9 ABG O2 Sat (Measured) 62.8 L ABG O2 Content No Result Required. ABG Base Excess -0.7 Juan Carlos Test Positive O2 Delivery Device No Result Required. Oxygen Flow Rate Room air Vent Mode No Result Required. Vent Rate No Result Required. Mechanical Rate No Result Required. Pressure Support Vent No Result Required. Sodium Potassium Chloride Carbon Dioxide Anion Gap BUN Creatinine Creat Clearance w eGFR Random Glucose Calcium Phosphorus Magnesium Total Bilirubin AST ALT Alkaline Phosphatase Creatine Kinase Creatine Kinase Index CK-MB (CK-2) Troponin I 0.06 H B-Natriuretic Peptide Total Protein Albumin Urine Color Urine Appearance Urine pH Ur Specific [place] Urine Protein Urine Glucose (UA) Urine Ketones Urine Blood Urine Nitrite Urine Bilirubin Urine Urobilinogen Ur Leukocyte Esterase Urine WBC (Auto) Urine RBC (Auto) Ur Epithelial Cells Urine Bacteria Hyaline Casts Urine Mucus 12/31/18 12/31/18 12/31/18 06:00 07:26 09:29 WBC RBC Hgb Hct MCV MCH MCHC RDW Plt Count MPV Absolute Neuts (auto) Neutrophils % Lymphocytes % Monocytes % Eosinophils % Basophils % Nucleated RBC % PT with INR 36.90 H INR 3.09 H Anticoagulation Therapy Puncture Site ABG pH ABG pCO2 at Pt Temp ABG pO2 at Pt Temp ABG HCO3 ABG O2 Sat (Measured) ABG O2 Content ABG Base Excess Juan Carlos Test O2 Delivery Device Oxygen Flow Rate Vent Mode Vent Rate Mechanical Rate Pressure Support Vent Sodium 134 L Potassium 4.6 Chloride 101 Carbon Dioxide 24 Anion Gap 9 BUN 75 H Creatinine 3.6 H Creat Clearance w eGFR 16.04 Random Glucose 91 Calcium 8.1 L Phosphorus 6.1 H Magnesium 2.5 H Total Bilirubin AST ALT Alkaline Phosphatase Creatine Kinase 236 Creatine Kinase Index 4.4 CK-MB (CK-2) 10.6 H Troponin I 0.06 H B-Natriuretic Peptide Total Protein Albumin Urine Color [place] Urine Appearance Turbid Urine pH 5.0 Ur Specific [place] 1.015 Urine Protein 3+ H Urine Glucose (UA) Negative Urine Ketones Negative Urine Blood 3+ H Urine Nitrite Negative Urine Bilirubin Negative Urine Urobilinogen Negative Ur Leukocyte Esterase 2+ H Urine WBC (Auto) 161 Urine RBC (Auto) 571 Ur Epithelial Cells Few Urine Bacteria Few Hyaline Casts 187 Urine Mucus Rare 12/31/18 13:02 WBC RBC Hgb Hct MCV MCH MCHC RDW Plt Count MPV Absolute Neuts (auto) Neutrophils % Lymphocytes % Monocytes % Eosinophils % Basophils % Nucleated RBC % PT with INR INR Anticoagulation Therapy No Result Required. Puncture Site Left radial ABG pH 7.34 L ABG pCO2 at Pt Temp 44.0 ABG pO2 at Pt Temp 115 H ABG HCO3 23.2 ABG O2 Sat (Measured) 98.0 ABG O2 Content 10.3 L ABG Base Excess -1.9 Juan Carlos Test Positive O2 Delivery Device No Result Required. Oxygen Flow Rate Yes Vent Mode No Result Required. Vent Rate No Result Required. Mechanical Rate No Result Required. Pressure Support Vent No Result Required. Sodium Potassium Chloride Carbon Dioxide Anion Gap BUN Creatinine Creat Clearance w eGFR Random Glucose Calcium Phosphorus Magnesium Total Bilirubin AST ALT Alkaline Phosphatase Creatine Kinase Creatine Kinase Index CK-MB (CK-2) Troponin I B-Natriuretic Peptide Total Protein Albumin Urine Color Urine Appearance Urine pH Ur Specific [place] Urine Protein Urine Glucose (UA) Urine Ketones Urine Blood Urine Nitrite Urine Bilirubin Urine Urobilinogen Ur Leukocyte Esterase Urine WBC (Auto) Urine RBC (Auto) Ur Epithelial Cells Urine Bacteria Hyaline Casts Urine Mucus Active Medications Generic Name Dose Route Start Last Admin Trade Name Freq PRN Reason Stop Dose Admin Chlorhexidine Gluconate 1 applic 12/31/18 22:00 Hibiclens For Decolonization - TP HS JAYCE Dopamine HCl/Dextrose 400,000 mcg in 250 mls @ 17.606 mls/hr 12/31/18 11:30 12/31/18 12:30 Dopamine 400 Mg/D5w - IVPB 10 mcg/kg/min TITR JAYCE 35.213 mls/hr Titration Protocol 5 MCG/KG/MIN Mupirocin 1 applic 12/31/18 11:15 Bactroban Ointment (For Decolonization) - NS 01/05/19 11:14 BID JAYCE ASSESSMENT/PLAN: This is a 88 year old male with a history of CAD s/p CABG, s/p PCI/LUIS EDUARDO , persistnat atrial fibrillation, diastolic congestive heart failure, HTN, carotid stenosis who presented with worsening SON, orthopnea, b/l leg edema, found to be in acute heart failure. #Acute on chronic diastolic heart failure -started on BiPAP; -IV lasix; -daily weights, strict I/Os; christina in place -on dopamine due to hypotension -cardio consulted #Acute hypoxic respiratory failure - on bipap ; now improved #Atrial fibrillation -rate controlled -on warfarin ; currently held due to INR >3; keep btw 2-3 #Acute on chronic kidney disease -cardio; renal vs sec to hypotension; UTI -urine lytes -stirct i/os -ua, uc -kidney/bladder US -renal mike #Anemia -most likely sec to ckd -will order iron studies; in case of need for venfer/then possible epogen #UTI: -started on ceftriaxone ; f/u uc #COPD -on bilpap; cont IH bronchodilators #HTN -hold home meds; currently hypotensive on dopamine #HLD -statin Diet: npo currently on bipap Disposition: ICU Visit type - Emergency Visit Emergency Visit: Yes ED Registration Date: 12/30/18 Care time: The patient presented to the Emergency Department on the above date and was hospitalized for further evaluation of their emergent condition. - New Patient This patient is new to me today: Yes Date on this admission: 12/31/18 - Critical Care Critical Care patient: Yes Total Critical Care Time (in minutes): 45 Critical Care Statement: The care of this patient involved high complexity decision making to prevent further life threatening deterioration of the patient 's condition and/or to evaluate & treat vital organ system(s) failure or risk of failure.
--- NOTE | 2018-12-31 14:42 | PROC ---
Central Line Insertion Indication: Vasopressor Risks and Benefits Explained: Yes Consent on Chart: Yes Central Line: Triple Lumen Catheter Anesthesia: 2% Lidocaine Sterile Technique: Yes Ultrasound Guided Assistance: Yes Position: Left Internal Jugular Post Insertion: Yes: Bilateral Breath Sounds, Bilateral Chest Expansion, Chest X-Ray Ordered Sterile Dressing Applied: Yes Remarks: Procedure and risks explained to both patient and spouse, informed consent obtained. Triple lumen catheter placed under Sterile technique with US guidance and Seldinger technique. CXR reviewed with no signs of pneumothorax, and line appears in appropriate position, awaiting official read.
--- NOTE | 2018-12-31 15:26 | CONSULT ---
Consult Consult Specialty:: Nephrology Reason for Consultation:: ANGELA - History of Present Illness Chief Complaint: progressive shortness of breath History of Present Illness: Pt is an 88 year old male with pmhx of CHF, a-fib and CKD who presents to the ER with progressive shortness of breth. He is on lasix at home. He had been on spironolactone which was stopped a few weeks ago. He was found to have elevated creatinine and I was called to evaluate him. He denies history of CKD however he has multiple abnormal creatinine value in the computer chart. He denies dysuria or hematuria. He denies fevers or chills. He complains of lower ext edema. His is at bedside and assisted with history. He was also hypotensive and requires pressors. - History Source History Provided By: Patient - Past Medical History Cardio/Vascular: Yes: AFIB, CAD, CHF, HTN, Hyperlipdemia Renal/: Yes: Renal Inusuff Musculoskeletal: Yes: Other (spinal stenosis) - Past Surgical History Past Surgical History: Yes: CABG, Colectomy, Hernia Repair, Joint Replacement (b /l hip replacement ORIF right arm), Stent - Alcohol/Substance Use Hx Alcohol Use: No History of Substance Use: reports: None - Smoking History Smoking history: Former smoker Have you smoked in the past 12 months: No Aproximately how many cigarettes per day: 0 If you are a former smoker, when did you quit?: 25YR - Social History ADL: Independent History of Recent Travel: No Home Medications - Allergies Allergies/Adverse Reactions: Allergies Allergy/AdvReac Type Severity Reaction Status Date / Time No Known Allergies Allergy Verified 12/30/18 13:06 - Home Medications Home Medications: Ambulatory Orders Ranolazine [Ranexa -] 500 mg PO BID 03/22/12 Cholecalciferol (Vitamin D3) [Vitamin D -] 2,000 unit PO DAILY 03/13/18 Vit A/Vit C/Vit E/Zinc/Copper [Preservision Areds Tablet] 1 each PO DAILY Metoprolol Succinate [Toprol Xl] 25 mg PO DAILY 03/18/18 Losartan Potassium [Cozaar -] 25 mg PO DAILY tablet 10/06/18 Warfarin Sodium 5 mg PO HS 30 Days #30 tablet 10/06/18 Allopurinol [Zyloprim -] 150 mg PO DAILY 12/30/18 Furosemide [Lasix] 40 mg PO DAILY 12/30/18 Rosuvastatin [Crestor -] 3 mg PO HS 12/30/18 Family Disease History - Family Disease History Family Disease History: Heart Disease: Mother, Brother, Other: Father Review of Systems - Review of Systems Constitutional: reports: Malaise. denies: Chills Eyes: reports: No Symptoms HENT: reports: No Symptoms Neck: reports: No Symptoms Cardiovascular: reports: Edema, Shortness of Breath. denies: Palpitations Respiratory: reports: SOB, SOB on Exertion Gastrointestinal: reports: No Symptoms Genitourinary: reports: No Symptoms Musculoskeletal: reports: No Symptoms Integumentary: reports: No Symptoms Neurological: reports: No Symptoms Endocrine: reports: No Symptoms Psychiatric: reports: No Symptoms Physical Exam Vital Signs: Vital Signs Temperature 97.5 F L 12/31/18 10:43 Pulse Rate 62 12/31/18 15:00 Respiratory Rate 18 12/31/18 15:00 Blood Pressure 101/42 L 12/31/18 15:00 O2 Sat by Pulse Oximetry (%) 95 12/31/18 14:33 Constitutional: Yes: Calm Eyes: Yes: Conjunctiva Clear HENT: Yes: Atraumatic Neck: Yes: Supple Cardiovascular: Yes: S1, S2 Respiratory: Yes: On BiPap, Rhonchi Gastrointestinal: Yes: Soft Renal/: Yes: Lester Present Musculoskeletal: Yes: Muscle Weakness Edema: Yes Edema: LLE: 2+, RLE: 2+ Integumentary: Yes: Venous Stasis Changes Neurological: Yes: Oriented Psychiatric: Yes: Oriented Labs: CBC, BMP 12/31/18 06:00 12/31/18 06:00 Laboratory Tests 10/06/18 10/10/18 10/31/18 06:45 13:08 13:08 Hgb Sodium BUN Creatinine 1.6 H 1.3 1.8 H Urine Protein Urine Blood 11/20/18 12/30/18 12/30/18 14:20 15:00 15:00 Hgb 8.1 L Sodium 133 L BUN Creatinine 1.8 H 3.2 H Urine Protein Urine Blood 12/31/18 12/31/18 12/31/18 06:00 06:00 09:29 Hgb 7.6 L Sodium 134 L BUN 75 H Creatinine 3.6 H Urine Protein 3+ H Urine Blood 3+ H Imaging - Results Chest X-ray: Report Reviewed Problem List - Problems (1) Faukt-cb-ejfdelx kidney injury Code(s): N17.9 - ACUTE KIDNEY FAILURE, UNSPECIFIED; N18.9 - CHRONIC KIDNEY DISEASE, UNSPECIFIED Qualifiers: Acute renal failure type: unspecified Chronic kidney disease stage: unspecified stage Qualified Code(s): N17.9 - Acute kidney failure, unspecified ; N18.9 - Chronic kidney disease, unspecified (2) Congestive heart failure Code(s): I50.9 - HEART FAILURE, UNSPECIFIED Qualifiers: Heart failure type: unspecified Heart failure chronicity: acute on chronic Qualified Code(s): I50.9 - Heart failure, unspecified Assessment/Plan Current Medications Generic Name Dose Route Start Last Admin Trade Name Freq PRN Reason Stop Dose Admin Chlorhexidine Gluconate 1 applic 12/31/18 22:00 Hibiclens For Decolonization - TP HS JAYCE Dopamine HCl/Dextrose 400,000 mcg in 250 mls @ 17.606 mls/hr 12/31/18 11:30 12/31/18 12:30 Dopamine 400 Mg/D5w - IVPB 10 mcg/kg/min TITR JAYCE 35.213 mls/hr Titration Protocol 5 MCG/KG/MIN Norepinephrine Bitartrate 4, 500 mls @ 37.5 mls/hr 12/31/18 14:45 000 mcg/ Dextrose IV TITR JAYCE Protocol 5 MCG/MIN Mupirocin 1 applic 12/31/18 11:15 Bactroban Ointment (For Decolonization) - NS 01/05/19 11:14 BID JAYCE Laboratory Tests 12/30/18 15:00 B-Natriuretic Peptide 6050.7 H Impression 1. ANGELA 2. CKD 3. CHF 4. hypotension 5. resp failure requiring bipap 6. a-fib 7. hld 8. bilateral pleural effusions Plan - check ultrasound kidneys and bladder - send ua - check urine lytes and operations/dispatch - cont with lasix - follow up echo - maintain map of 65 - may have had angela from cardiorenal disease - hypotension may have caused atn as well - discussed treatment with pt and his at length - discussed with ICU team - check cvp - daily cxr - cont bipap as needed - monitor pulse ox
--- NOTE | 2018-12-31 16:02 | ECHO ---
Name: MALIA ALANIS Exam:Adult Echocardiogram Study Date: 12/31/2018 03:16 PM Age: 88 yrs Reason For Study: CHF EXACERBATION Height: 73 in Weight: 185 lb BSA: 2.1 m2 BP: 101/42 mmHg MMode/2D Measurements & Calculations IVSd: 0.77 cm Ao root diam: 3.4 cm LVIDd: 5.2 cm LA dimension: 4.4 cm LVIDs: 4.0 cm LVPWd: 0.79 cm EDV(Teich): 131.2 ml LVOT diam: 2.0 cm ESV(Teich): 70.1 ml LAV (MOD-bp): 117.0 ml TAPSE: 3.3 cm Doppler Measurements & Calculations MV E max skip: 108.0 cm/sec Ao V2 max: 195.5 cm/sec MV A max skip: 47.7 cm/sec Ao max P.3 mmHg MV E/A: 2.3 Ao V2 mean: 135.3 cm/sec MV dec time: 0.12 sec Ao mean P.1 mmHg Ao V2 VTI: 39.1 cm AIMEE(I,D): 1.5 cm2 AIMEE(V,D): 1.6 cm2 LV V1 max P.7 mmHg MR max skip: 328.2 cm/sec LV V1 mean P.9 mmHg MR max P.3 mmHg LV V1 max: 96.0 cm/sec LV V1 mean: 62.4 cm/sec LV V1 VTI: 18.0 cm SV(LVOT): 57.1 ml TR max skip: 258.5 cm/sec TR max P.8 mmHg PI end-d skip: 69.5 cm/sec Med Peak E' Skip: 11.5 cm/sec Med E/e': 9.4 Lat Peak E' Skip: 13.8 cm/sec Lat E/e': 7.8 Procedure A complete two-dimensional transthoracic echocardiogram was performed (2D, M-mode, Doppler and color flow Doppler). Left Ventricle The left ventricular size, thickness and function are normal. Ejection Fraction = 60%. The transmitra l spectral Doppler flow pattern is suggestive of impaired LV relaxation. The left ventricular wall colin on is normal. Right Ventricle The right ventricle is moderately dilated. The right ventricular systolic function is mildly reduced. Atria The left atrium is mildly dilated. The right atrium is moderately dilated. Mitral Valve There is mild to moderate mitral annular calcification. There is mild mitral regurgitation. Tricuspid Valve The tricuspid valve is normal in structure and function. There is moderate tricuspid regurgitation. R ight ventricular systolic pressure is 31 mmhg. Aortic Valve There is mild aortic valve thickening. No aortic regurgitation is present. Pulmonic Valve The pulmonic valve is not well visualized. Trace pulmonic valvular regurgitation. Great Vessels The aortic root is normal size. Pericardium/Pleura There is no pericardial effusion. There is no pleural effusion. Interpretation Summary The left ventricular size, thickness and function are normal Ejection Fraction = 60%. The right ventricle is moderately dilated. The right ventricular systolic function is mildly reduced. The left atrium is mildly dilated. The right atrium is moderately dilated. There is mild to moderate mitral annular calcification. There is mild mitral regurgitation. There is moderate tricuspid regurgitation. Right ventricular systolic pressure is 31 mmhg. There is mild aortic valve thickening. Trace pulmonic valvular regurgitation. MD Tee Maravilla 12/31/2018 04:01 PM
[2018-12-31] MEDS: NOREPINEPHRINE BITARTRATE 4,000 MCG in DEXTROSE 5%-WATER - 496 ML IV SCH (17:14)
[2018-12-31] MEDS: MUPIROCIN 2% TOPICAL OINTMENT FOR DECOLONIZATION NS SCH ×2 (17:16→21:32)
[2018-12-31] MEDS: CHLORHEXIDINE GLUCONATE 4% CLEANSER FOR DECOLONIZATION TP SCH (21:32)
[2019-01-01 06:28] LABS: BASO % 0.8 % (0-2.0); EOS % 0.9 % (0-4.5); HEMATOCRIT 21.2 % (35.4-49); HEMOGLOBIN 7.4 GM/dL (11.7-16.9); LYMPH % 12.4 % (8-40); MCH 34.2 pg (25.7-33.7); MCHC 34.9 g/dl (32.0-35.9); MEAN PLT VOLUME 7.6 fl (7.5-11.1); MONO % 13.8 % (3.8-10.2); NEUT % 72.1 % (42.8-82.8); PLATELET COUNT 150 K/MM3 (134-434); RBC 2.16 M/mm3 (4.00-5.60); RDW 16.3 % (11.9-15.9)
[2019-01-01 06:38] LABS: ALBUMIN 2.8 g/dl (3.4-5.0); ALK PHOS 80 U/L (45-117); ANION GAP 8 MMOL/L (8-16); BILIRUBIN,TOTAL 0.4 mg/dL (0.2-1); BLOOD UREA NITROGEN 79 mg/dL (7-18); CALCIUM 7.6 mg/dL (8.5-10.1); CHLORIDE 98 mmol/L (98-107); CO2 25 mmol/L (21-32); GLUCOSE,RANDOM 113 mg/dL (74-106); MAGNESIUM 2.5 mg/dL (1.8-2.4); PHOSPHOROUS 6.7 mg/dL (2.5-4.9); POTASSIUM 4.8 mmol/L (3.5-5.1); SGOT/AST 31 U/L (15-37); SGPT/ALT 21 U/L (13-61); SODIUM 131 mmol/L (136-145); TOT PROT 6.1 g/dl (6.4-8.2)
[2019-01-01 09:05] LABS: INR 3.29 (0.83-1.09); PROTHROMBIN TIME (PATIENT) 39.3 SEC (9.7-13.0)
[2019-01-01] MEDS ORDERED: cefTRIAXone SODIUM 1 GM VIAL ONE (09:34)
[2019-01-01] MEDS ORDERED: DEXTROSE 5%-WATER - 50 ML IVPB ONE (09:35)
[2019-01-01] MEDS: NOREPINEPHRINE BITARTRATE 4,000 MCG in DEXTROSE 5%-WATER - 496 ML IV SCH ×2 (09:39→17:30)
[2019-01-01] MEDS: CEFTRIAXONE 1 GM in DEXTROSE 5%-WATER - 50 ML IVPB SCH (09:49)
[2019-01-01] MEDS: MUPIROCIN 2% TOPICAL OINTMENT FOR DECOLONIZATION NS SCH ×2 (10:00→22:23)
[2019-01-01] MEDS ORDERED: FUROSEMIDE 40 MG/4 ML INJECTABLE VIAL IVPUSH ONE (11:27)
[2019-01-01] MEDS: DOPAMINE 400 MG/D5W - 400,000 MCG/250 ML INFUS.BAG IVPB SCH (12:29)
--- NOTE | 2019-01-01 12:29 | PN ---
Teaching Attending Note Name of Resident: Venancio Combs ATTENDING PHYSICIAN STATEMENT I saw and evaluated the patient. I reviewed the resident's note and discussed the case with the resident. I agree with the resident's findings and plan as documented. SUBJECTIVE: Pt seen and examined in the ICU. Off BiPAP, states breathing better. Did not respond to lasix yesterday. Now on levophed gtt, tapering off dopamine gtt. OBJECTIVE: Vital Signs Period Temp Pulse Resp BP Sys/Ascencio Pulse Ox Last 24 Hr 97.8 F-98.6 F 62-78 16-22 75-128/31-87 94-100 Intake & Output 12/29/18 12/30/18 12/31/18 01/01/19 23:59 23:59 23:59 23:59 Intake Total 908 1160 Output Total 400 300 Balance 508 860 Weight 83.915 kg 93.9 kg 93.9 kg Gen: less tachypneic Heart: RRR Lung: basilar rales Abd: soft, nontender Ext: + edema CBC, BMP 01/01/19 05:30 01/01/19 05:30 Active Medications Chlorhexidine Gluconate (Hibiclens For Decolonization -) 1 applic TP HS JAYCE Last Admin: 12/31/18 21:32 Dose: 1 applic Dopamine HCl/Dextrose (Dopamine 400 Mg/D5w -) 400,000 mcg in 250 mls @ 17.606 mls/hr IVPB TITR JAYCE; Protocol Last Titration: 01/01/19 12:16 Dose: 2.5 mcg/kg/min, 8.803 mls/hr Norepinephrine Bitartrate 4, (000 mcg/ Dextrose) 500 mls @ 37.5 mls/hr IV TITR JAYCE; Protocol Last Admin: 01/01/19 09:39 Dose: 10 mcg/min, 75 mls/hr Ceftriaxone Sodium 1 gm/ (Dextrose) 50 mls @ 100 mls/hr IVPB DAILY JAYCE Last Admin: 01/01/19 09:49 Dose: 100 mls/hr Mupirocin (Bactroban Ointment (For Decolonization) -) 1 applic NS BID JAYCE Stop: 01/05/19 11:14 Last Admin: 12/31/18 21:32 Dose: 1 applic ASSESSMENT AND PLAN: Acute Hypoxic Respiratory Failure Acute on Chronic Diastolic Heart Failure Volume Overload Atrial Fibrillation Acute on Chronic Renal Failure COPD Anemia Hypercholesterolemia - continue lasix - monitor urine output, creatinine - daily weights - titrate levophed gtt to maintain MAP>65 - check CVP - O2 to keep SpO2 >90% - BiPAP to assist in work of breathing - rate control - continue anticoagulation - ICU monitoring critical care time spent in reviewing chart, evaluating patient and formulating plan 35 min
--- NOTE | 2019-01-01 12:47 | PN ---
Progress Note, Physician History of Present Illness: Pt seen and examined at bedside. He is off of bipap. he feels that his breathing is a little better today. He does complain of lower ext edema. - Current Medication List Current Medications: Active Medications Chlorhexidine Gluconate (Hibiclens For Decolonization -) 1 applic TP HS JAYCE Last Admin: 12/31/18 21:32 Dose: 1 applic Dopamine HCl/Dextrose (Dopamine 400 Mg/D5w -) 400,000 mcg in 250 mls @ 17.606 mls/hr IVPB TITR JAYCE; Protocol Last Admin: 01/01/19 12:29 Dose: Not Given Norepinephrine Bitartrate 4, (000 mcg/ Dextrose) 500 mls @ 37.5 mls/hr IV TITR JAYCE; Protocol Last Admin: 01/01/19 09:39 Dose: 10 mcg/min, 75 mls/hr Ceftriaxone Sodium 1 gm/ (Dextrose) 50 mls @ 100 mls/hr IVPB DAILY JAYCE Last Admin: 01/01/19 09:49 Dose: 100 mls/hr Mupirocin (Bactroban Ointment (For Decolonization) -) 1 applic NS BID JAYCE Stop: 01/05/19 11:14 Last Admin: 12/31/18 21:32 Dose: 1 applic - Objective Vital Signs: Vital Signs Temperature 98.8 F 01/01/19 10:00 Pulse Rate 66 01/01/19 12:32 Respiratory Rate 20 01/01/19 12:32 Blood Pressure 114/56 L 01/01/19 12:32 O2 Sat by Pulse Oximetry (%) 99 01/01/19 11:00 Constitutional: Yes: Calm Eyes: Yes: Conjunctiva Clear HENT: Yes: Atraumatic Neck: Yes: Supple Cardiovascular: Yes: S1, S2 Respiratory: Yes: On Nasal O2, Rhonchi Gastrointestinal: Yes: Soft Genitourinary: Yes: Lester Present Musculoskeletal: Yes: Muscle Weakness Edema: Yes Edema: LLE: 2+, RLE: 2+ Integumentary: Yes: Venous Stasis Changes Neurological: Yes: Oriented Psychiatric: Yes: Oriented Labs: CBC, BMP 01/01/19 05:30 01/01/19 05:30 INR, PTT INR 3.29 (0.83-1.09) H 01/01/19 05:30 - ....Imaging Chest X-ray: Report Reviewed Problem List - Problems (1) Giurl-ab-jglvyly kidney injury Code(s): N17.9 - ACUTE KIDNEY FAILURE, UNSPECIFIED; N18.9 - CHRONIC KIDNEY DISEASE, UNSPECIFIED Qualifiers: Acute renal failure type: unspecified Chronic kidney disease stage: unspecified stage Qualified Code(s): N17.9 - Acute kidney failure, unspecified ; N18.9 - Chronic kidney disease, unspecified (2) Congestive heart failure Code(s): I50.9 - HEART FAILURE, UNSPECIFIED Qualifiers: Heart failure type: unspecified Heart failure chronicity: acute on chronic Qualified Code(s): I50.9 - Heart failure, unspecified Assessment/Plan Current Medications Generic Name Dose Route Start Last Admin Trade Name Freq PRN Reason Stop Dose Admin Chlorhexidine Gluconate 1 applic 12/31/18 22:00 12/31/18 21:32 Hibiclens For Decolonization - TP 1 applic HS JAYCE Administration Dopamine HCl/Dextrose 400,000 mcg in 250 mls @ 17.606 mls/hr 12/31/18 11:30 01/01/19 12:29 Dopamine 400 Mg/D5w - IVPB Not Given TITR JAYCE Protocol 5 MCG/KG/MIN Norepinephrine Bitartrate 4, 500 mls @ 37.5 mls/hr 12/31/18 14:45 01/01/19 09 :39 000 mcg/ Dextrose IV 10 mcg/min TITR JAYCE 75 mls/hr Administration Protocol 5 MCG/MIN Ceftriaxone Sodium 1 gm/ 50 mls @ 100 mls/hr 01/01/19 10:00 01/01/19 09:49 Dextrose IVPB 100 mls/hr DAILY JAYCE Administration Mupirocin 1 applic 12/31/18 11:15 12/31/18 21:32 Bactroban Ointment (For Decolonization) - NS 01/05/19 11:14 1 applic BID JAYCE Administration Impression 1. ANGELA 2. CKD 3. CHF 4. hypotension 5. resp failure requiring bipap 6. a-fib 7. hld 8. bilateral pleural effusions Plan - renal workup in progress - renal function worsening - agree with a dose of lasix - maintain map of 65 - daily cxr - monitor pulse ox - avoid nsaids - avoid hypotensive episodes if possible
--- NOTE | 2019-01-01 15:14 | PN ---
Physical Exam: SUBJECTIVE: Patient seen and examined this AM. He states that he is feeling well today with no complaints other than that the bilevel mask is uncomfortable. OBJECTIVE: Vital Signs Period Temp Pulse Resp BP Sys/Ascencio Pulse Ox Last 24 Hr 98.2 F-98.8 F 62-78 16-22 88-129/31-87 94-100 GEN: A&O, no acute distress HEENT: PERRL, moist mucus membranes NECK: Supple, no lymphadenopathy, Left IJ in place with some blood noted around biopatch HEART: RRR, no murmurs noted LUNGS: CTA b/l, no wheezes or crackles noted ABDOMEN: Soft, nontender, 1+ edema noted up to the umbilicus EXTREMITIES: 2+ edema in b/l LE, no calf tenderness noted Laboratory Results - last 24 hr 01/01/19 01/01/19 01/01/19 05:30 05:30 05:30 WBC 5.0 RBC 2.16 L Hgb 7.4 L Hct 21.2 L MCV 98.0 H MCH 34.2 H MCHC 34.9 RDW 16.3 H Plt Count 150 MPV 7.6 Absolute Neuts (auto) 3.6 Neutrophils % 72.1 Lymphocytes % 12.4 D Monocytes % 13.8 H Eosinophils % 0.9 Basophils % 0.8 Nucleated RBC % 0 PT with INR 39.30 H INR 3.29 H Sodium 131 L Potassium 4.8 Chloride 98 Carbon Dioxide 25 Anion Gap 8 BUN 79 H Creatinine 4.0 H Creat Clearance w eGFR 14.21 Random Glucose 113 H Calcium 7.6 L Phosphorus 6.7 H Magnesium 2.5 H Ferritin 98.6 Total Bilirubin 0.4 AST 31 ALT 21 Alkaline Phosphatase 80 Total Protein 6.1 L Albumin 2.8 L Active Medications Generic Name Dose Route Start Last Admin Trade Name Freq PRN Reason Stop Dose Admin Chlorhexidine Gluconate 1 applic 12/31/18 22:00 12/31/18 21:32 Hibiclens For Decolonization - TP 1 applic HS JAYCE Administration Dopamine HCl/Dextrose 400,000 mcg in 250 mls @ 17.606 mls/hr 12/31/18 11:30 01/01/19 14:54 Dopamine 400 Mg/D5w - IVPB 1 mcg/kg/min TITR JAYCE 3.521 mls/hr Titration Protocol 5 MCG/KG/MIN Norepinephrine Bitartrate 4, 500 mls @ 37.5 mls/hr 12/31/18 14:45 01/01/19 09 :39 000 mcg/ Dextrose IV 10 mcg/min TITR JAYCE 75 mls/hr Administration Protocol 5 MCG/MIN Ceftriaxone Sodium 1 gm/ 50 mls @ 100 mls/hr 01/01/19 10:00 01/01/19 09:49 Dextrose IVPB 100 mls/hr DAILY JAYCE Administration Mupirocin 1 applic 12/31/18 11:15 12/31/18 21:32 Bactroban Ointment (For Decolonization) - NS 01/05/19 11:14 1 applic BID JAYCE Administration ASSESSMENT/PLAN: Patient is an 88 year old male who presented for worsening shortness of breath and was found to have CHF exacerbation with hypotension. Patient admitted to ICU for further monitoring and management. NEURO -Awake, Alert and oriented -On no sedation PULMONARY #Acute Hypoxic Respiratory Failure -Likely secondary to CHF exacerbation. -Placed on Bilevel ventilation initially, now improved and tolerating nasal cannula well -Lasix 80 mg IV given yesterday and today with minimal urinary output -Renal and bladder US without any signs of obstruction -Strict I&O's -Daily weights -Cardiology consult appreciated #COPD -No acute exacerbation -Albuterol nebulizer PRN -Maintain 02 Saturation >90% CARDIOLOGY #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 -Likely Cardio-Renal Syndrome -Repeat ECHO with normal EF, dilated RV and RA -80mg IV lasix yesterday and today with minimal output -Initially placed on dopamine drip for blood pressure control, Central line placed, Attempting to downtitrate Dopamine and use Levophed -Continue Beta Truman and hold CAROLYN/ARB due to ANGELA -Ranexa 500 bid -Low sodium diet -Lester placed for strict I&O's -Daily weights #Permanent atrial fibrillation -[id number] -Patient on Warfarin but is currently Supratherapeutic -Hold Warfarin until INR within range #CAD s/p CABG -s/p PCI/LUIS EDUARDO to LAD -Continue IV Furosemide, BB, ASA, and Rosuvastatin #HTN -Hold anti-htn medications as patient is hypotensive -Titrate Dopamine drip to maintain MAP >65 -Continue to monitor BP #HLD -Would continue home medication Rosuvastatin NEPHROLOGY #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 -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 -Baseline around 1.5 -Kidney/Bladder U/S without signs of obstruction -Avoid nephrotoxic medications -Renally dose medications -Will hold CAROLYN/ARB for now -Nephrology consult appreciated -Monitor BMP INFECTIOUS DISEASE #UTI -QSOFA Score= 2 -U/A positive with LE 2+ and >100 Urine WBC -Ceftriaxone 1gm IVPB started -Urine culture pending HEMATOLOGY #Supratherapeutic INR -Hold Warfarin -Avoid AC -Monitor INR #Macrocytic Anemia -With possible superimposed chronic anemia -Renal consult appreciated -Continue to monitor CBC -Iron studies pending as per primary team F/E/N -None -HyperPhos, HyperMag. Continue to monitor -Sodium controlled diet Prophylaxis -SCD's for DVT as patient has low hgb -No GI required Disposition -Full code -Monitor in ICU, can likely transfer to floor once pressors weaned off Visit type - Emergency Visit Emergency Visit: Yes ED Registration Date: 12/30/18 Care time: The patient presented to the Emergency Department on the above date and was hospitalized for further evaluation of their emergent condition. - New Patient This patient is new to me today: No - Critical Care Critical Care patient: Yes Total Critical Care Time (in minutes): 35 Critical Care Statement: The care of this patient involved high complexity decision making to prevent further life threatening deterioration of the patient 's condition and/or to evaluate & treat vital organ system(s) failure or risk of failure.
[2019-01-01] MEDS ORDERED: NOREPINEPHRINE BITARTRATE 4 MG/4 ML ML IV ONE (17:45)
--- NOTE | 2019-01-01 18:11 | PN ---
Teaching Attending Note Name of Resident: Ernestina Hodges ATTENDING PHYSICIAN STATEMENT I saw and evaluated the patient. I reviewed the resident's note and discussed the case with the resident. I agree with the resident's findings and plan as documented. SUBJECTIVE: Mr Aleman says he is feeling much better today, says he is not short of breath. Denies cp and n/v. OBJECTIVE: Last Vital Signs Temp Pulse Resp BP Pulse Ox 37.1 C 66 20 111/51 L 96 01/01/19 10:00 01/01/19 12:32 01/01/19 12:32 01/01/19 14:54 01/01/19 16:06 Gen: nad Pulm: ronchi bilaterally w/o w/r CV: rrr w/o m/r/g Abd: +bs, s/nt/nd Ext: 1+ ble pitting edema CBC, BMP 01/01/19 05:30 01/01/19 05:30 40 minutes spent in critical care time with this patient Problem List - Problems (1) Acute on chronic diastolic (congestive) heart failure Assessment/Plan: -case d/w cardiology -hypotensive, on dopamine and levophed -diuresing, given lasix 80mg IV x1 today Code(s): I50.33 - ACUTE ON CHRONIC DIASTOLIC (CONGESTIVE) HEART FAILURE (2) Fglig-fj-hfyyckb kidney injury Assessment/Plan: -Dr Montgomery following -work up in progress -avoid hypotensive moments -avoid NSAIDs Code(s): N17.9 - ACUTE KIDNEY FAILURE, UNSPECIFIED; N18.9 - CHRONIC KIDNEY DISEASE, UNSPECIFIED Qualifiers: Acute renal failure type: unspecified Chronic kidney disease stage: unspecified stage Qualified Code(s): N17.9 - Acute kidney failure, unspecified ; N18.9 - Chronic kidney disease, unspecified (3) Warfarin toxicity Assessment/Plan: -holding coumadin -monitor Code(s): T45.511A - POISONING BY ANTICOAGULANTS, ACCIDENTAL, INIT (4) CAD (coronary artery disease) Assessment/Plan: -quiescent -cardiology following Code(s): I25.10 - ATHSCL HEART DISEASE OF [place] CORONARY ARTERY W/O ANG PCTRS Qualifiers: Coronary Disease-Associated Artery/Lesion type: [place] artery [place] vs. transplanted heart: [place] heart Associated angina: without angina Qualified Code(s): I25.10 - Atherosclerotic heart disease of [place] coronary artery without angina pectoris (5) COPD (chronic obstructive pulmonary disease) Assessment/Plan: -not in exacerbation -pulmonary following Code(s): J44.9 - CHRONIC OBSTRUCTIVE PULMONARY DISEASE, UNSPECIFIED Qualifiers: COPD type: unspecified COPD Qualified Code(s): J44.9 - Chronic obstructive pulmonary disease, unspecified (6) Chronic anemia Assessment/Plan: -monitor -may need transfusion but can currently hold Code(s): D64.9 - ANEMIA, UNSPECIFIED (7) HTN (hypertension) Assessment/Plan: -hypotensive -on pressors as above Code(s): I10 - ESSENTIAL (PRIMARY) HYPERTENSION Qualifiers: Hypertension type: essential hypertension Qualified Code(s): I10 - Essential (primary) hypertension (8) Pulmonary hypertension Assessment/Plan: -noted Code(s): I27.2 - OTHER SECONDARY PULMONARY HYPERTENSION * DO NOT USE * (9) Atrial fibrillation Assessment/Plan: -currently in sinus -history of bradycardia and planning for pacemaker Code(s): I48.91 - UNSPECIFIED ATRIAL FIBRILLATION Qualifiers: Atrial fibrillation type: permanent Qualified Code(s): I48.2 - Chronic atrial fibrillation (10) Hyperlipidemia Assessment/Plan: -on crestor as an outpatient Code(s): E78.5 - HYPERLIPIDEMIA, UNSPECIFIED Qualifiers: Hyperlipidemia type: pure hypercholesterolemia Qualified Code(s): E78.00 - Pure hypercholesterolemia, unspecified; E78.0 - Pure hypercholesterolemia
--- NOTE | 2019-01-01 18:20 | PN ---
Physical Exam: SUBJECTIVE: Patient seen and examined ; off bipap; on NC; eating sitting up in bed;sob improved; no chest pain OBJECTIVE: Vital Signs Period Temp Pulse Resp BP Sys/Ascencio Pulse Ox Last 24 Hr 98.2 F-98.8 F 62-74 16-22 103-129/42-86 95-100 GENERAL: The patient is awake, alert, and fully oriented, in no acute distress. dried blood from IJ LUNGS: Breath sounds equal, clear to auscultation bilaterally, no wheezes, no crackles, no accessory muscle use. HEART: Regular rate and rhythm, S1, S2 without murmur, rub or gallop. ABDOMEN: Soft, nontender, nondistended, normoactive bowel sounds, no guarding, no rebound, no hepatosplenomegaly, no masses. EXTREMITIES: 2+ pulses, warm, well-perfused, b/l edema improved NEUROLOGICAL: Cranial nerves II through XII grossly intact. Normal speech, gait not observed. PSYCH: Normal mood, normal affect. SKIN: Warm, dry, normal turgor, no rashes or lesions noted Laboratory Results - last 24 hr 01/01/19 01/01/19 01/01/19 05:30 05:30 05:30 WBC 5.0 RBC 2.16 L Hgb 7.4 L Hct 21.2 L MCV 98.0 H MCH 34.2 H MCHC 34.9 RDW 16.3 H Plt Count 150 MPV 7.6 Absolute Neuts (auto) 3.6 Neutrophils % 72.1 Lymphocytes % 12.4 D Monocytes % 13.8 H Eosinophils % 0.9 Basophils % 0.8 Nucleated RBC % 0 PT with INR 39.30 H INR 3.29 H Sodium 131 L Potassium 4.8 Chloride 98 Carbon Dioxide 25 Anion Gap 8 BUN 79 H Creatinine 4.0 H Creat Clearance w eGFR 14.21 Random Glucose 113 H Calcium 7.6 L Phosphorus 6.7 H Magnesium 2.5 H Ferritin 98.6 Total Bilirubin 0.4 AST 31 ALT 21 Alkaline Phosphatase 80 Total Protein 6.1 L Albumin 2.8 L Active Medications Generic Name Dose Route Start Last Admin Trade Name Freq PRN Reason Stop Dose Admin Chlorhexidine Gluconate 1 applic 12/31/18 22:00 12/31/18 21:32 Hibiclens For Decolonization - TP 1 applic HS JAYCE Administration Dopamine HCl/Dextrose 400,000 mcg in 250 mls @ 17.606 mls/hr 12/31/18 11:30 01/01/19 14:54 Dopamine 400 Mg/D5w - IVPB 1 mcg/kg/min TITR JAYCE 3.521 mls/hr Titration Protocol 5 MCG/KG/MIN Norepinephrine Bitartrate 4, 500 mls @ 37.5 mls/hr 12/31/18 14:45 01/01/19 09 :39 000 mcg/ Dextrose IV 10 mcg/min TITR JAYCE 75 mls/hr Administration Protocol 5 MCG/MIN Ceftriaxone Sodium 1 gm/ 50 mls @ 100 mls/hr 01/01/19 10:00 01/01/19 09:49 Dextrose IVPB 100 mls/hr DAILY JAYCE Administration Mupirocin 1 applic 12/31/18 11:15 12/31/18 21:32 Bactroban Ointment (For Decolonization) - NS 01/05/19 11:14 1 applic BID JAYCE Administration ASSESSMENT/PLAN: This is a 88 year old male with a history of CAD s/p CABG, s/p PCI/LUIS EDUARDO , persistnat atrial fibrillation, diastolic congestive heart failure, HTN, carotid stenosis who presented with worsening SON, orthopnea, b/l leg edema, found to be in acute heart failure. #Acute on chronic diastolic heart failure -started on BiPAP; -IV lasix; prn -daily weights, strict I/Os; christina in place -on dopamine/levo due to hypotension -cardio consulted #Acute hypoxic respiratory failure - on bipap ; now improved #Atrial fibrillation -rate controlled -on warfarin ; currently held due to INR >3; keep btw 2-3 #Acute on chronic kidney disease -cardio; renal vs sec to hypotension; UTI -urine lytes -stirct i/os -ua, uc -kidney/bladder US -renal mike #Anemia -most likely sec to ckd -will order iron studies; in case of need for venfer/then possible epogen #UTI: -started on ceftriaxone ; f/u uc #COPD -; cont IH bronchodilators #HTN -hold home meds; currently hypotensive on dopamine #HLD -statin Diet: regular Disposition: ICU Visit type - Emergency Visit Emergency Visit: Yes ED Registration Date: 12/30/18 Care time: The patient presented to the Emergency Department on the above date and was hospitalized for further evaluation of their emergent condition. - New Patient This patient is new to me today: No - Critical Care Critical Care patient: Yes Total Critical Care Time (in minutes): 45 Critical Care Statement: The care of this patient involved high complexity decision making to prevent further life threatening deterioration of the patient 's condition and/or to evaluate & treat vital organ system(s) failure or risk of failure.
--- NOTE | 2019-01-01 19:47 | PN ---
Progress Note, Physician History of Present Illness: Dyspnea improving now off bipap. - Current Medication List Current Medications: Active Medications Chlorhexidine Gluconate (Hibiclens For Decolonization -) 1 applic TP HS JAYCE Last Admin: 12/31/18 21:32 Dose: 1 applic Dopamine HCl/Dextrose (Dopamine 400 Mg/D5w -) 400,000 mcg in 250 mls @ 17.606 mls/hr IVPB TITR JAYCE; Protocol Last Titration: 01/01/19 18:51 Dose: 0 mcg/kg/min, 0 mls/hr Norepinephrine Bitartrate 4, (000 mcg/ Dextrose) 500 mls @ 37.5 mls/hr IV TITR JAYCE; Protocol Last Admin: 01/01/19 17:30 Dose: 10 mcg/min, 75 mls/hr Ceftriaxone Sodium 1 gm/ (Dextrose) 50 mls @ 100 mls/hr IVPB DAILY JAYCE Last Admin: 01/01/19 09:49 Dose: 100 mls/hr Mupirocin (Bactroban Ointment (For Decolonization) -) 1 applic NS BID JAYCE Stop: 01/05/19 11:14 Last Admin: 01/01/19 10:00 Dose: 1 applic - Objective Vital Signs: Vital Signs Temperature 98.8 F 01/01/19 10:00 Pulse Rate 66 01/01/19 18:00 Respiratory Rate 25 H 01/01/19 18:00 Blood Pressure 94/74 01/01/19 18:00 O2 Sat by Pulse Oximetry (%) 100 01/01/19 18:57 Constitutional: Yes: No Distress, Calm Neck: Yes: Supple Cardiovascular: Yes: Pulse Irregular Respiratory: Yes: Regular, Diminished, On Nasal O2 Gastrointestinal: Yes: Normal Bowel Sounds, Soft Edema: Yes Edema: LLE: 1+, RLE: 1+ Labs: CBC, BMP 01/01/19 05:30 01/01/19 05:30 INR, PTT INR 3.29 (0.83-1.09) H 01/01/19 05:30 Problem List - Problems (1) Vyieo-ug-mzkutll kidney injury Code(s): N17.9 - ACUTE KIDNEY FAILURE, UNSPECIFIED; N18.9 - CHRONIC KIDNEY DISEASE, UNSPECIFIED Qualifiers: Acute renal failure type: unspecified Chronic kidney disease stage: unspecified stage Qualified Code(s): N17.9 - Acute kidney failure, unspecified ; N18.9 - Chronic kidney disease, unspecified (2) Acute on chronic diastolic (congestive) heart failure Code(s): I50.33 - ACUTE ON CHRONIC DIASTOLIC (CONGESTIVE) HEART FAILURE (3) CAD (coronary artery disease) Code(s): I25.10 - ATHSCL HEART DISEASE OF [place] CORONARY ARTERY W/O ANG PCTRS Qualifiers: Coronary Disease-Associated Artery/Lesion type: [place] artery [place] vs. transplanted heart: [place] heart Associated angina: without angina Qualified Code(s): I25.10 - Atherosclerotic heart disease of [place] coronary artery without angina pectoris (4) COPD (chronic obstructive pulmonary disease) Code(s): J44.9 - CHRONIC OBSTRUCTIVE PULMONARY DISEASE, UNSPECIFIED Qualifiers: COPD type: unspecified COPD Qualified Code(s): J44.9 - Chronic obstructive pulmonary disease, unspecified (5) Chronic anemia Code(s): D64.9 - ANEMIA, UNSPECIFIED (6) Chronic anticoagulation Code(s): Z79.01 - SKILLED NURSING (CURRENT) USE OF ANTICOAGULANTS (7) Edema of both legs Code(s): R60.0 - LOCALIZED EDEMA (8) Elevated INR Code(s): R79.1 - ABNORMAL COAGULATION PROFILE (9) HTN (hypertension) Code(s): I10 - ESSENTIAL (PRIMARY) HYPERTENSION Qualifiers: Hypertension type: essential hypertension Qualified Code(s): I10 - Essential (primary) hypertension (10) Hx of CABG Code(s): Z95.1 - PRESENCE OF AORTOCORONARY BYPASS GRAFT (11) SOB (shortness of breath) Code(s): R06.02 - SHORTNESS OF BREATH (12) Status post insertion of drug-eluting stent into left anterior descending ( LAD) artery Code(s): Z95.5 - PRESENCE OF CORONARY ANGIOPLASTY IMPLANT AND GRAFT (13) Anemia Code(s): D64.9 - ANEMIA, UNSPECIFIED Qualifiers: Anemia type: unspecified type Qualified Code(s): D64.9 - Anemia, unspecified (14) Atrial fibrillation Code(s): I48.91 - UNSPECIFIED ATRIAL FIBRILLATION Qualifiers: Atrial fibrillation type: permanent Qualified Code(s): I48.2 - Chronic atrial fibrillation (15) Hyperlipidemia Code(s): E78.5 - HYPERLIPIDEMIA, UNSPECIFIED Qualifiers: Hyperlipidemia type: pure hypercholesterolemia Qualified Code(s): E78.00 - Pure hypercholesterolemia, unspecified; E78.0 - Pure hypercholesterolemia (16) Subendocardial ischemia Code(s): I24.8 - OTHER FORMS OF ACUTE ISCHEMIC HEART DISEASE Assessment/Plan 12/31/2018 Echo: Normal LV size and fxn LVEF 60%, mod dilated RV with mild decreased RV fxn, mild-mod AUTUMN, mild MR, mod TR RVSP 31 mmHg 1. Acute on chronic LV diastolic failure with moderate TR and subendocardial ischemia 2. Acute Hypoxic Respiratory Failure 3. CAD s/p CABG and PCI/LUIS EDUARDO, angina 4. Permanent atrial fibrillation [id number] of 5 with supratherapeutic INR 5. HTN/HCVD 6. Hypercholesterolemia 7. COPD 8. Anemia 9. Acute on CKD 10. Moderate carotid stenosis PLAN: 1. IV diuresis with monitoring renal function and electrolytes. Monitor renal output with christina catheter 2. Levophed gtt to maintain MAP>65 mmHg, resume Ranexa 500 bid and Crestor 5 qd 3. Coumadin dose per INR keep btw 2-3 4. BIPAP, O2 to keep SpO2 >90% 5. Transfuse to maintain Hgb>8.0
[2019-01-01] MEDS: CHLORHEXIDINE GLUCONATE 4% CLEANSER FOR DECOLONIZATION TP SCH (22:24)
[2019-01-02 04:15] LABS: SERUM IRON SATURATION 15 % (15-55); TOTAL IRON BINDING CAPACITY 281 ug/dL (250-450); UIBC 240 ug/dL (111-343)
[2019-01-02 08:53] LABS: HEMATOCRIT 21.9 % (35.4-49); HEMOGLOBIN 7.5 GM/dL (11.7-16.9); MCH 34.2 pg (25.7-33.7); MCHC 34.4 g/dl (32.0-35.9); MEAN CELL VOLUME 99.5 fl (80-96); MEAN PLT VOLUME 7.3 fl (7.5-11.1); PLATELET COUNT 141 K/MM3 (134-434); RDW 16.1 % (11.9-15.9); WHITE BLOOD COUNT 4.6 K/mm3 (4.0-10.0)
[2019-01-02 09:00] LABS: INR 2.5 (0.83-1.09); PROTHROMBIN TIME (PATIENT) 29.8 SEC (9.7-13.0)
[2019-01-02 09:08] LABS: ANION GAP 10 MMOL/L (8-16); BLOOD UREA NITROGEN 84 mg/dL (7-18); CALCIUM 7.6 mg/dL (8.5-10.1); CHLORIDE 96 mmol/L (98-107); CO2 24 mmol/L (21-32); CREATININE 4.7 mg/dL (0.55-1.3); GLUCOSE,RANDOM 98 mg/dL (74-106); MAGNESIUM 2.8 mg/dL (1.8-2.4); PHOSPHOROUS 7.4 mg/dL (2.5-4.9); POTASSIUM 4.6 mmol/L (3.5-5.1); SODIUM 130 mmol/L (136-145)
--- NOTE | 2019-01-02 09:19 | PN ---
Physical Exam: SUBJECTIVE: Patient seen and examined this AM. He states he is feeling well with no respiratory distress. He states the edema is about the same as the last few days. OBJECTIVE: Vital Signs Period Temp Pulse Resp BP Sys/Ascencio Pulse Ox Last 24 Hr 97.8 F-98.8 F 58-144 19-31 94-129/48-83 95-100 GEN: A&O, no acute distress HEENT: PERRL, moist mucus membranes NECK: Supple, no lymphadenopathy, Left IJ in place with some blood noted around biopatch HEART: RRR, no murmurs noted LUNGS: Mild expiratory wheezes noted b/l ABDOMEN: Soft, nontender, 1+ edema noted up to the umbilicus EXTREMITIES: 2+ edema in b/l LE, no calf tenderness noted Laboratory Results - last 24 hr 01/01/19 01/02/19 01/02/19 05:30 08:20 08:20 PT with INR 29.80 H INR 2.50 H Sodium 130 L Potassium 4.6 Chloride 96 L Carbon Dioxide 24 Anion Gap 10 BUN 84 H Creatinine 4.7 H Creat Clearance w eGFR 11.80 Random Glucose 98 Calcium 7.6 L Phosphorus 7.4 H Magnesium 2.8 H Iron 41 TIBC 281 Iron Saturation 15 Active Medications Generic Name Dose Route Start Last Admin Trade Name Freq PRN Reason Stop Dose Admin Chlorhexidine Gluconate 1 applic 12/31/18 22:00 01/01/19 22:24 Hibiclens For Decolonization - TP 1 applic HS JAYCE Administration Dopamine HCl/Dextrose 400,000 mcg in 250 mls @ 17.606 mls/hr 12/31/18 11:30 01/01/19 20:00 Dopamine 400 Mg/D5w - IVPB 0 mcg/kg/min TITR JAYCE 0 mls/hr Titration Protocol 5 MCG/KG/MIN Norepinephrine Bitartrate 4, 500 mls @ 37.5 mls/hr 12/31/18 14:45 01/01/19 20 :00 000 mcg/ Dextrose IV 10 mcg/min TITR JAYCE 75 mls/hr Titration Protocol 5 MCG/MIN Ceftriaxone Sodium 1 gm/ 50 mls @ 100 mls/hr 01/01/19 10:00 01/01/19 09:49 Dextrose IVPB 100 mls/hr DAILY JAYCE Administration Mupirocin 1 applic 12/31/18 11:15 01/01/19 22:23 Bactroban Ointment (For Decolonization) - NS 01/05/19 11:14 1 applic BID JAYCE Administration ASSESSMENT/PLAN: Patient is an 88 year old male who presented for worsening shortness of breath and was found to have CHF exacerbation with hypotension. Patient admitted to ICU for further monitoring and management. NEURO -Awake, Alert and oriented -On no sedation PULMONARY #Acute Hypoxic Respiratory Failure -Likely secondary to CHF exacerbation. -Placed on Bilevel ventilation initially, now improved and tolerating nasal cannula well -Will discuss possibility of higher lasix dose with nephrology as pt with minimal output on Lasix 80 mg IV for multiple days -Renal and bladder US without any signs of obstruction -Strict I&O's -Daily weights -Cardiology consult appreciated #COPD -No acute exacerbation -Albuterol nebulizer PRN -Maintain 02 Saturation >90% CARDIOLOGY #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 -Likely Cardio-Renal Syndrome -Repeat ECHO with normal EF, dilated RV and RA -80mg IV lasix yesterday and today with minimal output -Initially placed on dopamine drip for blood pressure control, Central line placed,Dopamine weaned off, on Norephinephrine drip -Ranexa 500 bid -Low sodium diet -Lester placed for strict I&O's -Daily weights #Permanent atrial fibrillation -[id number] -Patient on Warfarin but is currently Supratherapeutic -Warfarin and monitor INR #CAD s/p CABG -s/p PCI/LUIS EDUARDO to LAD -Continue IV Furosemide, BB, ASA, and Rosuvastatin #HTN -Hold anti-htn medications as patient is hypotensive -Titrate Norepinephrine drip to maintain MAP >65 -Continue to monitor BP #HLD -Continue home Crestor NEPHROLOGY #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 -Likely ATN -Baseline around 1.5 -Kidney/Bladder U/S without signs of obstruction -Avoid nephrotoxic medications -Renally dose medications -Will hold CAROLYN/ARB for now -Nephrology consult appreciated -Monitor BMP INFECTIOUS DISEASE #UTI -QSOFA Score= 2 -U/A positive with LE 2+ and >100 Urine WBC -Ceftriaxone 1gm IVPB started -Urine culture pending HEMATOLOGY #Supratherapeutic INR -Improved, restart Warfarin home dose 5 mg PO HS -Monitor INR #Macrocytic Anemia -With possible superimposed chronic anemia -Renal consult appreciated -Continue to monitor CBC -Iron studies pending as per primary team F/E/N -None -HyperPhos, HyperMag. Continue to monitor -Sodium controlled diet Prophylaxis -SCD's, Warfarin -No GI required LINES -CV line day 3 Disposition -Full code -Monitor in ICU, can likely transfer to floor once pressors weaned off Visit type - Emergency Visit Emergency Visit: Yes ED Registration Date: 12/30/18 Care time: The patient presented to the Emergency Department on the above date and was hospitalized for further evaluation of their emergent condition. - New Patient This patient is new to me today: No - Critical Care Critical Care patient: Yes Total Critical Care Time (in minutes): 38 Critical Care Statement: The care of this patient involved high complexity decision making to prevent further life threatening deterioration of the patient 's condition and/or to evaluate & treat vital organ system(s) failure or risk of failure.
[2019-01-02] MEDS ORDERED: cefTRIAXone SODIUM 1 GM VIAL ONE (09:34)
[2019-01-02] MEDS ORDERED: DEXTROSE 5%-WATER - 50 ML IVPB ONE (09:35)
[2019-01-02] MEDS ORDERED: RAPID SEQUENCE INTUBATION KIT NR ONE (09:49)
[2019-01-02] MEDS: CEFTRIAXONE 1 GM in DEXTROSE 5%-WATER - 50 ML IVPB SCH (10:05)
[2019-01-02] MEDS: MUPIROCIN 2% TOPICAL OINTMENT FOR DECOLONIZATION NS SCH ×2 (11:00→22:10)
[2019-01-02] MEDS: DOPAMINE 400 MG/D5W - 400,000 MCG/250 ML INFUS.BAG IVPB SCH (11:00)
--- NOTE | 2019-01-02 12:17 | PN ---
Progress Note, Physician History of Present Illness: Dyspnea improving now off bipap on NC, renal fxn continues to decline. - Current Medication List Current Medications: Active Medications Chlorhexidine Gluconate (Hibiclens For Decolonization -) 1 applic TP HS [facility] Last Admin: 01/01/19 22:24 Dose: 1 applic Dopamine HCl/Dextrose (Dopamine 400 Mg/D5w -) 400,000 mcg in 250 mls @ 17.606 mls/hr IVPB TITR JAYCE; Protocol Last Titration: 01/01/19 20:00 Dose: 0 mcg/kg/min, 0 mls/hr Norepinephrine Bitartrate 4, (000 mcg/ Dextrose) 500 mls @ 37.5 mls/hr IV TITR JAYCE; Protocol Last Titration: 01/02/19 10:06 Dose: 5 mcg/min, 37.5 mls/hr Ceftriaxone Sodium 1 gm/ (Dextrose) 50 mls @ 100 mls/hr IVPB DAILY JAYCE Last Admin: 01/02/19 10:05 Dose: 100 mls/hr Mupirocin (Bactroban Ointment (For Decolonization) -) 1 applic NS BID [facility] Stop: 01/05/19 11:14 Last Admin: 01/01/19 22:23 Dose: 1 applic Rosuvastatin Calcium (Crestor -) 3 mg PO HS JAYCE Warfarin Sodium (Coumadin -) 5 mg PO HS [facility] - Objective Vital Signs: Vital Signs Temperature 97.8 F 01/02/19 09:00 Pulse Rate 56 L 01/02/19 11:57 Respiratory Rate 20 01/02/19 11:57 Blood Pressure 109/62 01/02/19 11:57 O2 Sat by Pulse Oximetry (%) 100 01/02/19 10:45 Constitutional: Yes: No Distress, Calm, Thin Neck: Yes: Supple Cardiovascular: Yes: Regular Rate and Rhythm, Murmur (2/6 SM) Respiratory: Yes: Regular, Diminished, On Nasal O2 Gastrointestinal: Yes: Normal Bowel Sounds, Soft Edema: Yes Edema: LLE: Trace, RLE: Trace Labs: CBC, BMP 01/02/19 08:20 01/02/19 08:20 INR, PTT INR 2.50 (0.83-1.09) H 01/02/19 08:20 - ....Imaging Chest X-ray: Report Reviewed (CHF and pleural effusions) EKG: Report Reviewed (Tele: NSR) Problem List - Problems (1) Hcjxa-sk-yvydvxe kidney injury Code(s): N17.9 - ACUTE KIDNEY FAILURE, UNSPECIFIED; N18.9 - CHRONIC KIDNEY DISEASE, UNSPECIFIED Qualifiers: Qualified Code(s): N17.9 - Acute kidney failure, unspecified; N18.9 - Chronic kidney disease, unspecified (2) Acute on chronic diastolic (congestive) heart failure Code(s): I50.33 - ACUTE ON CHRONIC DIASTOLIC (CONGESTIVE) HEART FAILURE (3) CAD (coronary artery disease) Code(s): I25.10 - ATHSCL HEART DISEASE OF [place] CORONARY ARTERY W/O ANG PCTRS Qualifiers: Qualified Code(s): I25.10 - Atherosclerotic heart disease of [place] coronary artery without angina pectoris (4) COPD (chronic obstructive pulmonary disease) Code(s): J44.9 - CHRONIC OBSTRUCTIVE PULMONARY DISEASE, UNSPECIFIED Qualifiers: Qualified Code(s): J44.9 - Chronic obstructive pulmonary disease, unspecified (5) Chronic anemia Code(s): D64.9 - ANEMIA, UNSPECIFIED (6) Chronic anticoagulation Code(s): Z79.01 - [employer] (CURRENT) USE OF ANTICOAGULANTS (7) Edema of both legs Code(s): R60.0 - LOCALIZED EDEMA (8) Elevated INR Code(s): R79.1 - ABNORMAL COAGULATION PROFILE (9) HTN (hypertension) Code(s): I10 - ESSENTIAL (PRIMARY) HYPERTENSION Qualifiers: Qualified Code(s): I10 - Essential (primary) hypertension (10) Hx of CABG Code(s): Z95.1 - PRESENCE OF AORTOCORONARY BYPASS GRAFT (11) SOB (shortness of breath) Code(s): R06.02 - SHORTNESS OF BREATH (12) Status post insertion of drug-eluting stent into left anterior descending ( LAD) artery Code(s): Z95.5 - PRESENCE OF CORONARY ANGIOPLASTY IMPLANT AND GRAFT (13) Anemia Code(s): D64.9 - ANEMIA, UNSPECIFIED Qualifiers: Qualified Code(s): D64.9 - Anemia, unspecified (14) Atrial fibrillation Code(s): I48.91 - UNSPECIFIED ATRIAL FIBRILLATION Qualifiers: Qualified Code(s): I48.2 - Chronic atrial fibrillation (15) Hyperlipidemia Code(s): E78.5 - HYPERLIPIDEMIA, UNSPECIFIED Qualifiers: Qualified Code(s): E78.00 - Pure hypercholesterolemia, unspecified; E78.0 - Pure hypercholesterolemia (16) Subendocardial ischemia Code(s): I24.8 - OTHER FORMS OF ACUTE ISCHEMIC HEART DISEASE Assessment/Plan 12/31/2018 Echo: Normal LV size and fxn LVEF 60%, mod dilated RV with mild decreased RV fxn, mild-mod AUTUMN, mild MR, mod TR RVSP 31 mmHg 1. Acute on chronic LV diastolic failure with moderate TR and subendocardial ischemia 2. Acute Hypoxic Respiratory Failure 3. CAD s/p CABG and PCI/LUIS EDUARDO, angina 4. Permanent atrial fibrillation [id number] of 5 with therapeutic INR 5. HTN/HCVD 6. Hypercholesterolemia 7. COPD 8. Anemia 9. Acute on CKD 10. Moderate carotid stenosis PLAN: 1. IV diuresis with monitoring renal function and electrolytes. Monitor renal output with christina catheter, may require HD 2. Levophed gtt to maintain MAP>65 mmHg, resume Ranexa 500 bid and Crestor 5 qd 3. Coumadin dose per INR keep btw 2-3, would hold if Shiley placement is planned 4. BIPAP, O2 to keep SpO2 >90% 5. Transfuse to maintain Hgb>8.0
[2019-01-02] MEDS ORDERED: FUROSEMIDE 40 MG/4 ML INJECTABLE VIAL IVPUSH SCH (13:15)
--- NOTE | 2019-01-02 13:17 | PN ---
Teaching Attending Note Name of Resident: Venancio Combs ATTENDING PHYSICIAN STATEMENT I saw and evaluated the patient. I reviewed the resident's note and discussed the case with the resident. I agree with the resident's findings and plan as documented. SUBJECTIVE: Pt seen and examined in the ICU. Still with poor urine output. Breathing about the same, saturating well on nasal cannula. Remains on levophed gtt. OBJECTIVE: Vital Signs Period Temp Pulse Resp BP Sys/Ascencio Pulse Ox Last 24 Hr 97.8 F-98.2 F 56-144 19-31 89-123/49-83 95-100 Intake & Output 12/30/18 12/31/18 01/01/19 01/02/19 23:59 23:59 23:59 23:59 Intake Total 908 2475 Output Total 400 500 100 Balance 508 1974 Weight 83.915 kg 93.9 kg 93.894 kg 95.9 kg Gen: tachypneic at rest Heart: RRR Lung: scattered rhonchi Abd: soft, nontender Ext: + edema CBC, BMP 01/02/19 08:20 01/02/19 08:20 Active Medications Chlorhexidine Gluconate (Hibiclens For Decolonization -) 1 applic TP HS JAYCE Last Admin: 01/01/19 22:24 Dose: 1 applic Furosemide (Lasix Injection -) 80 mg IVPUSH DAILY JAYCE Stop: 01/03/19 10:01 Dopamine HCl/Dextrose (Dopamine 400 Mg/D5w -) 400,000 mcg in 250 mls @ 17.606 mls/hr IVPB TITR JAYCE; Protocol Last Titration: 01/01/19 20:00 Dose: 0 mcg/kg/min, 0 mls/hr Norepinephrine Bitartrate 4, (000 mcg/ Dextrose) 500 mls @ 37.5 mls/hr IV TITR JAYCE; Protocol Last Titration: 01/02/19 10:06 Dose: 5 mcg/min, 37.5 mls/hr Ceftriaxone Sodium 1 gm/ (Dextrose) 50 mls @ 100 mls/hr IVPB DAILY JAYCE Last Admin: 01/02/19 10:05 Dose: 100 mls/hr Mupirocin (Bactroban Ointment (For Decolonization) -) 1 applic NS BID JAYCE Stop: 01/05/19 11:14 Last Admin: 01/01/19 22:23 Dose: 1 applic Rosuvastatin Calcium (Crestor -) 5 mg PO HS JAYCE Warfarin Sodium (Coumadin -) 5 mg PO 1800 JAYCE ASSESSMENT AND PLAN: Acute Hypoxic Respiratory Failure Acute on Chronic Diastolic Heart Failure Volume Overload Atrial Fibrillation Acute on Chronic Renal Failure COPD Anemia Hypercholesterolemia - continue lasix per renal - monitor urine output, creatinine - daily weights - titrate levophed gtt to maintain MAP>65 - O2 to keep SpO2 >90% - BiPAP to assist in work of breathing - rate control - continue anticoagulation - ICU monitoring critical care time spent in reviewing chart, evaluating patient and formulating plan 35 min
[2019-01-02] MEDS: FUROSEMIDE 40 MG/4 ML INJECTABLE VIAL IVPUSH SCH (14:02)
[2019-01-02] MEDS: NOREPINEPHRINE BITARTRATE 4,000 MCG in DEXTROSE 5%-WATER - 496 ML IV SCH (14:30)
--- NOTE | 2019-01-02 15:03 | PN ---
Progress Note, Physician History of Present Illness: Pt seen and examined at bedside. He is awake and alert. He still has shortness of breath. He feels that his legs are more swollen. He remains oliguric. - Current Medication List Current Medications: Active Medications Artificial Tears (Artificial Tears) 1 drop OU TID PRN PRN Reason: DRY EYES Chlorhexidine Gluconate (Hibiclens For Decolonization -) 1 applic TP HS JAYCE Last Admin: 01/01/19 22:24 Dose: 1 applic Furosemide (Lasix Injection -) 80 mg IVPUSH BIDLASIX JAYCE Stop: 01/03/19 06:01 Last Admin: 01/02/19 14:02 Dose: 80 mg Dopamine HCl/Dextrose (Dopamine 400 Mg/D5w -) 400,000 mcg in 250 mls @ 17.606 mls/hr IVPB TITR JAYCE; Protocol Last Admin: 01/02/19 11:00 Dose: Not Given Norepinephrine Bitartrate 4, (000 mcg/ Dextrose) 500 mls @ 37.5 mls/hr IV TITR JAYCE; Protocol Last Titration: 01/02/19 10:06 Dose: 5 mcg/min, 37.5 mls/hr Ceftriaxone Sodium 1 gm/ (Dextrose) 50 mls @ 100 mls/hr IVPB DAILY JAYCE Last Admin: 01/02/19 10:05 Dose: 100 mls/hr Mupirocin (Bactroban Ointment (For Decolonization) -) 1 applic NS BID JAYCE Stop: 01/05/19 11:14 Last Admin: 01/01/19 22:23 Dose: 1 applic Rosuvastatin Calcium (Crestor -) 5 mg PO HS JAYCE Warfarin Sodium (Coumadin -) 5 mg PO 1800 JAYCE - Objective Vital Signs: Vital Signs Temperature 97.8 F 01/02/19 09:00 Pulse Rate 60 01/02/19 12:00 Respiratory Rate 22 H 01/02/19 12:00 Blood Pressure 109/62 01/02/19 12:00 O2 Sat by Pulse Oximetry (%) 97 01/02/19 13:20 Constitutional: Yes: Calm Eyes: Yes: Conjunctiva Clear HENT: Yes: Atraumatic Neck: Yes: Supple Cardiovascular: Yes: S1, S2 Respiratory: Yes: On Nasal O2, Rhonchi Gastrointestinal: Yes: Soft Genitourinary: Yes: Lester Present, Oliguria Edema: Yes Edema: LLE: 2+, RLE: 2+ Integumentary: Yes: WNL Neurological: Yes: Oriented Psychiatric: Yes: Oriented Labs: CBC, BMP 01/02/19 08:20 01/02/19 08:20 INR, PTT INR 2.50 (0.83-1.09) H 01/02/19 08:20 - ....Imaging Chest X-ray: Report Reviewed Problem List - Problems (1) [id number] kidney injury Code(s): N17.9 - ACUTE KIDNEY FAILURE, UNSPECIFIED; N18.9 - CHRONIC KIDNEY DISEASE, UNSPECIFIED Qualifiers: Acute renal failure type: unspecified Chronic kidney disease stage: unspecified stage Qualified Code(s): N17.9 - Acute kidney failure, unspecified ; N18.9 - Chronic kidney disease, unspecified (2) Congestive heart failure Code(s): I50.9 - HEART FAILURE, UNSPECIFIED Qualifiers: Heart failure type: unspecified Heart failure chronicity: acute on chronic Qualified Code(s): I50.9 - Heart failure, unspecified Assessment/Plan Current Medications Generic Name Dose Route Start Last Admin Trade Name Freq PRN Reason Stop Dose Admin Artificial Tears 1 drop 01/02/19 14:09 Artificial Tears OU TID PRN DRY EYES Chlorhexidine Gluconate 1 applic 12/31/18 22:00 01/01/19 22:24 Hibiclens For Decolonization - TP 1 applic HS JAYCE Administration Furosemide 80 mg 01/02/19 14:00 01/02/19 14:02 Lasix Injection - IVPUSH 01/03/19 06:01 80 mg BIDLASIX JAYCE Administration Dopamine HCl/Dextrose 400,000 mcg in 250 mls @ 17.606 mls/hr 12/31/18 11:30 01/02/19 11:00 Dopamine 400 Mg/D5w - IVPB Not Given TITR JAYCE Protocol 5 MCG/KG/MIN Norepinephrine Bitartrate 4, 500 mls @ 37.5 mls/hr 12/31/18 14:45 01/02/19 10 :06 000 mcg/ Dextrose IV 5 mcg/min TITR JAYCE 37.5 mls/hr Titration Protocol 5 MCG/MIN Ceftriaxone Sodium 1 gm/ 50 mls @ 100 mls/hr 01/01/19 10:00 01/02/19 10:05 Dextrose IVPB 100 mls/hr DAILY JAYCE Administration Mupirocin 1 applic 12/31/18 11:15 01/01/19 22:23 Bactroban Ointment (For Decolonization) - NS 01/05/19 11:14 1 applic BID JAYCE Administration Rosuvastatin Calcium 5 mg 01/02/19 22:00 Crestor - PO HS JAYCE Warfarin Sodium 5 mg 01/02/19 18:00 Coumadin - PO 1800 JAYCE Impression 1. ANGELA 2. CKD 3. CHF 4. hypotension 5. resp failure requiring bipap 6. a-fib 7. hld 8. bilateral pleural effusions Plan - maintain map of 65 - cont lasix - renal function worsening - discussed possibility of HD with pt and his at length - repeat labs in am - monitor pulse ox - avoid nsaids - avoid hypotensive episodes if possible
[2019-01-02] MEDS: ARTIFICIAL TEARS (POLYVINYL ALCOHOL) OPTH DROPS OU PRN (15:29)
--- NOTE | 2019-01-02 19:04 | PN ---
Teaching Attending Note Name of Resident: Ernestina Hodges ATTENDING PHYSICIAN STATEMENT I saw and evaluated the patient. I reviewed the resident's note and discussed the case with the resident. I agree with the resident's findings and plan as documented. SUBJECTIVE: Mr Aleman is without complaint. Denies cp, sob, n/v OBJECTIVE: Gen: nad Pulm: bilateral ronchi CV: rrr, 2/6 holosystolic ejection murmur Abd: +bs, s/nt/nd Ext: 1+ BLE pitting edema ASSESSMENT AND PLAN: (1) Acute on chronic diastolic (congestive) heart failure Assessment/Plan: -case d/w cardiology -weaning pressors, now on levophed -continue diuresis with IV lasix Code(s): I50.33 - ACUTE ON CHRONIC DIASTOLIC (CONGESTIVE) HEART FAILURE (2) Olfyf-eg-adcrhfu kidney injury Assessment/Plan: -Dr Montgomery following -work up in progress -avoid hypotensive moments -avoid NSAIDs Code(s): N17.9 - ACUTE KIDNEY FAILURE, UNSPECIFIED; N18.9 - CHRONIC KIDNEY DISEASE, UNSPECIFIED Qualifiers: Acute renal failure type: unspecified Chronic kidney disease stage: unspecified stage Qualified Code(s): N17.9 - Acute kidney failure, unspecified ; N18.9 - Chronic kidney disease, unspecified (3) Warfarin toxicity Assessment/Plan: -INR therapeutic today Code(s): T45.511A - POISONING BY ANTICOAGULANTS, ACCIDENTAL, INIT (4) CAD (coronary artery disease) Assessment/Plan: -quiescent -cardiology following Code(s): I25.10 - ATHSCL HEART DISEASE OF [place] CORONARY ARTERY W/O ANG PCTRS Qualifiers: Coronary Disease-Associated Artery/Lesion type: [place] artery [place] vs. transplanted heart: [place] heart Associated angina: without angina Qualified Code(s): I25.10 - Atherosclerotic heart disease of [place] coronary artery without angina pectoris (5) COPD (chronic obstructive pulmonary disease) Assessment/Plan: -not in exacerbation -pulmonary following Code(s): J44.9 - CHRONIC OBSTRUCTIVE PULMONARY DISEASE, UNSPECIFIED Qualifiers: COPD type: unspecified COPD Qualified Code(s): J44.9 - Chronic obstructive pulmonary disease, unspecified (6) Chronic anemia Assessment/Plan: -monitor -may need transfusion but can currently hold Code(s): D64.9 - ANEMIA, UNSPECIFIED (7) HTN (hypertension) Assessment/Plan: -hypotensive -on pressors as above Code(s): I10 - ESSENTIAL (PRIMARY) HYPERTENSION Qualifiers: Hypertension type: essential hypertension Qualified Code(s): I10 - Essential (primary) hypertension (8) Pulmonary hypertension Assessment/Plan: -noted Code(s): I27.2 - OTHER SECONDARY PULMONARY HYPERTENSION * DO NOT USE * (9) Atrial fibrillation Assessment/Plan: -currently in sinus -history of bradycardia and planning for pacemaker Code(s): I48.91 - UNSPECIFIED ATRIAL FIBRILLATION Qualifiers: Atrial fibrillation type: permanent Qualified Code(s): I48.2 - Chronic atrial fibrillation (10) Hyperlipidemia Assessment/Plan: -on crestor as an outpatient Code(s): E78.5 - HYPERLIPIDEMIA, UNSPECIFIED Qualifiers: Hyperlipidemia type: pure hypercholesterolemia Qualified Code(s): E78.00 - Pure hypercholesterolemia, unspecified; E78.0 - Pure hypercholesterolemia Problem List - Problems (1) Acute on chronic diastolic (congestive) heart failure Code(s): I50.33 - ACUTE ON CHRONIC DIASTOLIC (CONGESTIVE) HEART FAILURE (2) Nhwbs-fg-yiznwze kidney injury Code(s): N17.9 - ACUTE KIDNEY FAILURE, UNSPECIFIED; N18.9 - CHRONIC KIDNEY DISEASE, UNSPECIFIED Qualifiers: Acute renal failure type: unspecified Chronic kidney disease stage: unspecified stage Qualified Code(s): N17.9 - Acute kidney failure, unspecified ; N18.9 - Chronic kidney disease, unspecified (3) Warfarin toxicity Code(s): T45.511A - POISONING BY ANTICOAGULANTS, ACCIDENTAL, INIT (4) CAD (coronary artery disease) Code(s): I25.10 - ATHSCL HEART DISEASE OF [place] CORONARY ARTERY W/O ANG PCTRS Qualifiers: Coronary Disease-Associated Artery/Lesion type: [place] artery [place] vs. transplanted heart: [place] heart Associated angina: without angina Qualified Code(s): I25.10 - Atherosclerotic heart disease of [place] coronary artery without angina pectoris (5) COPD (chronic obstructive pulmonary disease) Code(s): J44.9 - CHRONIC OBSTRUCTIVE PULMONARY DISEASE, UNSPECIFIED Qualifiers: COPD type: unspecified COPD Qualified Code(s): J44.9 - Chronic obstructive pulmonary disease, unspecified (6) Chronic anemia Code(s): D64.9 - ANEMIA, UNSPECIFIED (7) HTN (hypertension) Code(s): I10 - ESSENTIAL (PRIMARY) HYPERTENSION Qualifiers: Hypertension type: essential hypertension Qualified Code(s): I10 - Essential (primary) hypertension (8) Pulmonary hypertension Code(s): I27.2 - OTHER SECONDARY PULMONARY HYPERTENSION * DO NOT USE * (9) Atrial fibrillation Code(s): I48.91 - UNSPECIFIED ATRIAL FIBRILLATION Qualifiers: Atrial fibrillation type: permanent Qualified Code(s): I48.2 - Chronic atrial fibrillation (10) Hyperlipidemia Code(s): E78.5 - HYPERLIPIDEMIA, UNSPECIFIED Qualifiers: Hyperlipidemia type: pure hypercholesterolemia Qualified Code(s): E78.00 - Pure hypercholesterolemia, unspecified; E78.0 - Pure hypercholesterolemia
[2019-01-02] MEDS: WARFARIN NA 5 MG TABLET (UD) PO SCH (19:11)
[2019-01-02] MEDS ORDERED: FUROSEMIDE 40 MG/4 ML INJECTABLE VIAL ONE (21:30)
[2019-01-02] MEDS: ALBUTEROL SO4 0.083% IH SOL 2.5 MG/3 ML VIAL.NEB. NEB PRN (21:32)
--- NOTE | 2019-01-02 21:40 | PN ---
Physical Exam: SUBJECTIVE: Patient seen and examined; sitting up in bed comfortable; no complaints; breathing improved OBJECTIVE: Vital Signs Period Temp Pulse Resp BP Sys/Ascencio Pulse Ox Last 24 Hr 97.2 F-98.2 F 53-144 20-31 89-128/39-69 96-100 GENERAL: The patient is awake, alert, and fully oriented, in no acute distress. LUNGS: Breath sounds equal, clear to auscultation bilaterally, no wheezes, no crackles, no accessory muscle use. HEART: Regular rate and rhythm, S1, S2 without murmur, rub or gallop. ABDOMEN: Soft, nontender, nondistended, normoactive bowel sounds, no guarding, no rebound, no hepatosplenomegaly, no masses. EXTREMITIES: 2+ pulses, warm, well-perfused, +1 pittine edema tender; improved NEUROLOGICAL: Cranial nerves II through XII grossly intact. Normal speech, gait not observed. PSYCH: Normal mood, normal affect. SKIN: Warm, dry, normal turgor, no rashes or lesions noted Laboratory Results - last 24 hr 01/01/19 01/02/19 01/02/19 05:30 08:20 08:20 WBC 4.6 RBC 2.20 L Hgb 7.5 L Hct 21.9 L MCV 99.5 H MCH 34.2 H MCHC 34.4 RDW 16.1 H Plt Count 141 MPV 7.3 L PT with INR INR Sodium 130 L Potassium 4.6 Chloride 96 L Carbon Dioxide 24 Anion Gap 10 BUN 84 H Creatinine 4.7 H Creat Clearance w eGFR 11.80 Random Glucose 98 Calcium 7.6 L Phosphorus 7.4 H Magnesium 2.8 H Iron 41 TIBC 281 Iron Saturation 15 Blood Type Antibody Screen Crossmatch 01/02/19 01/02/19 08:20 12:20 WBC RBC Hgb Hct MCV MCH MCHC RDW Plt Count MPV PT with INR 29.80 H INR 2.50 H Sodium Potassium Chloride Carbon Dioxide Anion Gap BUN Creatinine Creat Clearance w eGFR Random Glucose Calcium Phosphorus Magnesium Iron TIBC Iron Saturation Blood Type O POSITIVE Antibody Screen Negative Crossmatch See Detail Active Medications Generic Name Dose Route Start Last Admin Trade Name Freq PRN Reason Stop Dose Admin Albuterol Sulfate 1 amp 01/02/19 20:36 01/02/19 21:32 Ventolin 0.083% Nebulizer Soln - NEB 1 amp Q6H PRN Administration SHORT OF BREATH/WHEEZING Albuterol/Ipratropium 1 amp 01/03/19 08:00 Duoneb - NEB RQID JAYCE Artificial Tears 1 drop 01/02/19 14:09 01/02/19 15:29 Artificial Tears OU 1 drop TID PRN Administration DRY EYES Chlorhexidine Gluconate 1 applic 12/31/18 22:00 01/01/19 22:24 Hibiclens For Decolonization - TP 1 applic HS JAYCE Administration Furosemide 80 mg 01/02/19 14:00 01/02/19 14:02 Lasix Injection - IVPUSH 01/03/19 06:01 80 mg BIDLASIX JAYCE Administration Dopamine HCl/Dextrose 400,000 mcg in 250 mls @ 17.606 mls/hr 12/31/18 11:30 01/02/19 11:00 Dopamine 400 Mg/D5w - IVPB Not Given TITR JAYCE Protocol 5 MCG/KG/MIN Norepinephrine Bitartrate 4, 500 mls @ 37.5 mls/hr 12/31/18 14:45 01/02/19 14 :30 000 mcg/ Dextrose IV Not Given TITR JAYCE Protocol 5 MCG/MIN Ceftriaxone Sodium 1 gm/ 50 mls @ 100 mls/hr 01/01/19 10:00 01/02/19 10:05 Dextrose IVPB 100 mls/hr DAILY JAYCE Administration Mupirocin 1 applic 12/31/18 11:15 01/02/19 11:00 Bactroban Ointment (For Decolonization) - NS 01/05/19 11:14 1 applic BID JAYCE Administration Rosuvastatin Calcium 5 mg 01/02/19 22:00 Crestor - PO HS JAYCE Warfarin Sodium 5 mg 01/02/19 18:00 01/02/19 19:11 Coumadin - PO 5 mg 1800 JAYCE Administration ASSESSMENT/PLAN: This is a 88 year old male with a history of CAD s/p CABG, s/p PCI/LUIS EDUARDO , persistnat atrial fibrillation, diastolic congestive heart failure, HTN, carotid stenosis who presented with worsening SON, orthopnea, b/l leg edema, found to be in acute heart failure. #Acute on chronic diastolic heart failure -off Bipap; on nc -IV lasix; prn; now 80 mg bid; monitor bnp -daily weights, strict I/Os; christina in place -de-escalate pressers -cardio consulted #Acute hypoxic respiratory failure - sec to vol overload; improved #Atrial fibrillation -rate controlled -on warfarin ; currently held due to INR >3; keep btw 2-3 #Acute on chronic kidney disease -cardio; renal vs sec to hypotension; UTI -urine lytes -stirct i/os -ua, uc -kidney/bladder US -renal mike #Anemia -most likely sec to ckd -will order iron studies; in case of need for venfer/then possible epogen #UTI: -started on ceftriaxone ; f/u uc #COPD -; cont IH bronchodilators #HTN -hold home meds; currently hypotensive on dopamine #HLD -statin Diet: regular Disposition: ICU Visit type - Emergency Visit Emergency Visit: Yes ED Registration Date: 12/30/18 Care time: The patient presented to the Emergency Department on the above date and was hospitalized for further evaluation of their emergent condition. - New Patient This patient is new to me today: No - Critical Care Critical Care patient: No
[2019-01-02] MEDS ORDERED: FUROSEMIDE 100 MG/10 ML INJECTABLE VIAL IVPB ONE (21:53)
--- NOTE | 2019-01-02 21:55 | PN ---
Progress Note (short form) - Note Progress Note: Patient received IV Lasix 80 mg this morning. Urinary output = 215 mls all day today. on auscultation, has b/l diffuse crackles and wheezing + IV Lasix 80 mg stat given now. Will monitor urinary output. Discussed with Dr. Montgomery.
[2019-01-02] MEDS: ROSUVASTATIN CA 5 MG TABLET (FP) PO SCH (22:10)
[2019-01-02] MEDS: CHLORHEXIDINE GLUCONATE 4% CLEANSER FOR DECOLONIZATION TP SCH (22:11)
[2019-01-03 01:10] LABS: HBSAG SCREEN Negative (Negative); HEP B CORE AB, TOT Negative (Negative)
[2019-01-03] MEDS: ALBUTEROL SO4 0.083% IH SOL 2.5 MG/3 ML VIAL.NEB. NEB PRN ×2 (04:25→14:28)
[2019-01-03] MEDS: FUROSEMIDE 40 MG/4 ML INJECTABLE VIAL IVPUSH SCH (05:03)
[2019-01-03 06:21] LABS: HEMATOCRIT 22.7 % (35.4-49); HEMOGLOBIN 7.9 GM/dL (11.7-16.9); MCH 33.5 pg (25.7-33.7); MCHC 34.9 g/dl (32.0-35.9); MEAN PLT VOLUME 7.2 fl (7.5-11.1); PLATELET COUNT 127 K/MM3 (134-434); RBC 2.37 M/mm3 (4.00-5.60); RDW 17.1 % (11.9-15.9); WHITE BLOOD COUNT 3.9 K/mm3 (4.0-10.0)
[2019-01-03 06:27] LABS: INR 1.93 (0.83-1.09); PROTHROMBIN TIME (PATIENT) 22.9 SEC (9.7-13.0)
[2019-01-03 07:09] LABS: ANION GAP 11 MMOL/L (8-16); BLOOD UREA NITROGEN 88 mg/dL (7-18); CALCIUM 7.5 mg/dL (8.5-10.1); CHLORIDE 95 mmol/L (98-107); CO2 23 mmol/L (21-32); CREATININE 5.1 mg/dL (0.55-1.3); GLUCOSE,RANDOM 103 mg/dL (74-106); MAGNESIUM 2.6 mg/dL (1.8-2.4); PHOSPHOROUS 8.6 mg/dL (2.5-4.9); POTASSIUM 4.5 mmol/L (3.5-5.1); SODIUM 129 mmol/L (136-145)
[2019-01-03] MEDS: ALBUTEROL SO4 2.5/IPRATROPIUM 0.5 INH SOL 3 ML VIAL.NEB. NEB SCH ×4 (07:35→21:25)
--- NOTE | 2019-01-03 08:27 | PN ---
Physical Exam: SUBJECTIVE: Patient seen and examined this AM. He states he is feeling well this morning with some occasional difficulty breathing which is improved on the bilevel ventilation. Extensive discussion with patient and about impending dialysis likely required tomorrow if urine output does not greatly increase this afternoon/overnight. OBJECTIVE: Vital Signs Period Temp Pulse Resp BP Sys/Ascencio Pulse Ox Last 24 Hr 97.2 F-97.8 F 53-114 18-28 89-128/39-69 96-100 GEN: A&O, no acute distress HEENT: PERRL, moist mucus membranes NECK: Supple, no lymphadenopathy, Left IJ in place with some blood noted around biopatch HEART: RRR, no murmurs noted LUNGS: diffuse rhonchi/crackles/wheezes noted ABDOMEN: Soft, nontender, 1+ edema noted up to the umbilicus EXTREMITIES: 2+ edema in b/l LE, no calf tenderness noted Laboratory Results - last 24 hr 01/02/19 01/02/19 01/02/19 05:30 08:20 08:20 WBC 4.6 RBC 2.20 L Hgb 7.5 L Hct 21.9 L MCV 99.5 H MCH 34.2 H MCHC 34.4 RDW 16.1 H Plt Count 141 MPV 7.3 L PT with INR INR Sodium 130 L Potassium 4.6 Chloride 96 L Carbon Dioxide 24 Anion Gap 10 BUN 84 H Creatinine 4.7 H Creat Clearance w eGFR 11.80 Random Glucose 98 Calcium 7.6 L Phosphorus 7.4 H Magnesium 2.8 H Hepatitis A Ab Total Negative Hep Bs Antigen Negative Hep Bs Antibody Non reactive Hep B Core Total Ab Negative Blood Type Antibody Screen Crossmatch 01/02/19 01/02/19 01/03/19 08:20 12:20 05:30 WBC 3.9 L RBC 2.37 L Hgb 7.9 L Hct 22.7 L MCV 96.0 MCH 33.5 MCHC 34.9 RDW 17.1 H Plt Count 127 L MPV 7.2 L PT with INR 29.80 H INR 2.50 H Sodium Potassium Chloride Carbon Dioxide Anion Gap BUN Creatinine Creat Clearance w eGFR Random Glucose Calcium Phosphorus Magnesium Hepatitis A Ab Total Hep Bs Antigen Hep Bs Antibody Hep B Core Total Ab Blood Type O POSITIVE Antibody Screen Negative Crossmatch See Detail 03/22/19 03/22/19 05:30 05:30 WBC RBC Hgb Hct MCV MCH MCHC RDW Plt Count MPV PT with INR 22.90 H INR 1.93 H Sodium 129 L Potassium 4.5 Chloride 95 L Carbon Dioxide 23 Anion Gap 11 BUN 88 H Creatinine 5.1 H Creat Clearance w eGFR 10.73 Random Glucose 103 Calcium 7.5 L Phosphorus 8.6 H Magnesium 2.6 H Hepatitis A Ab Total Hep Bs Antigen Hep Bs Antibody Hep B Core Total Ab Blood Type Antibody Screen Crossmatch Active Medications Generic Name Dose Route Start Last Admin Trade Name Freq PRN Reason Stop Dose Admin Albuterol Sulfate 1 amp 01/02/19 20:36 01/03/19 04:25 Ventolin 0.083% Nebulizer Soln - NEB 1 amp Q6H PRN Administration SHORT OF BREATH/WHEEZING Albuterol/Ipratropium 1 amp 01/03/19 08:00 Duoneb - NEB RQID JAYCE Artificial Tears 1 drop 01/02/19 14:09 01/02/19 15:29 Artificial Tears OU 1 drop TID PRN Administration DRY EYES Chlorhexidine Gluconate 1 applic 12/31/18 22:00 01/02/19 22:11 Hibiclens For Decolonization - TP 1 applic HS JAYCE Administration Dopamine HCl/Dextrose 400,000 mcg in 250 mls @ 17.606 mls/hr 12/31/18 11:30 01/02/19 11:00 Dopamine 400 Mg/D5w - IVPB Not Given TITR JAYCE Protocol 5 MCG/KG/MIN Norepinephrine Bitartrate 4, 500 mls @ 37.5 mls/hr 12/31/18 14:45 01/03/19 07 :10 000 mcg/ Dextrose IV 0 mcg/min TITR JAYCE 0 mls/hr Titration Protocol 5 MCG/MIN Ceftriaxone Sodium 1 gm/ 50 mls @ 100 mls/hr 01/01/19 10:00 01/02/19 10:05 Dextrose IVPB 100 mls/hr DAILY JAYCE Administration Mupirocin 1 applic 12/31/18 11:15 01/02/19 22:10 Bactroban Ointment (For Decolonization) - NS 01/05/19 11:14 1 applic BID JAYCE Administration Rosuvastatin Calcium 5 mg 01/02/19 22:00 01/02/19 22:10 Crestor - PO 5 mg HS JAYCE Administration Warfarin Sodium 5 mg 01/02/19 18:00 01/02/19 19:11 Coumadin - PO 5 mg 1800 JAYCE Administration ASSESSMENT/PLAN: Patient is an 88 year old male who presented for worsening shortness of breath and was found to have CHF exacerbation with hypotension. Patient admitted to ICU for further monitoring and management. NEURO -Awake, Alert and oriented -On no sedation PULMONARY #Acute Hypoxic Respiratory Failure -Likely secondary to CHF exacerbation. -Placed on Bilevel ventilation initially, now improved, bilevel prn -Will discuss possibility of higher lasix dose with nephrology as pt with minimal output on Lasix 80 mg IV for multiple days -Renal and bladder US without any signs of obstruction -Strict I&O's -Daily weights -Cardiology consult appreciated #COPD -No acute exacerbation -Albuterol nebulizer PRN -Maintain 02 Saturation >90% CARDIOLOGY #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 -Likely Cardio-Renal Syndrome -Repeat ECHO with normal EF, dilated RV and RA -Lasix drip and reassess -Initially placed on dopamine drip for blood pressure control, Central line placed,Dopamine weaned off, off Norephinephrine drip -Ranexa 500 bid -Low sodium diet -Lester placed for strict I&O's -Daily weights #Permanent atrial fibrillation -[id number] -Patient on Warfarin at home, INR improved -Heparin drip for now #CAD s/p CABG -s/p PCI/LUIS EDUARDO to LAD -Continue IV Furosemide, BB, ASA, and Rosuvastatin #HTN -Hold anti-htn medications as patient is hypotensive -Currently off Norepinephrine, continue to monitor MAPs -Continue to monitor BP #HLD -Continue home Crestor NEPHROLOGY #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 -Likely ATN -Baseline around 1.5 -Kidney/Bladder U/S without signs of obstruction -Avoid nephrotoxic medications -Renally dose medications -Will hold CAROLYN/ARB for now -Nephrology consult appreciated, will likely require HD with worsening renal function -Monitor BMP INFECTIOUS DISEASE #UTI -QSOFA Score= 2 -U/A positive with LE 2+ and >100 Urine WBC -Ceftriaxone 1gm IVPB -Urine culture growing Enterococcus HEMATOLOGY #Supratherapeutic INR -Improved, Heparin drip in lieu of warfarin as pt will likely need dialysis catheter placement tomorrow -Monitor INR #Macrocytic Anemia -With possible superimposed chronic anemia -Renal consult appreciated -Continue to monitor CBC -Iron studies pending as per primary team F/E/N -None -HyperPhos, HyperMag. Continue to monitor -Sodium controlled diet Prophylaxis -SCD's, Warfarin -No GI required LINES -CV line day 4 Disposition -Full code -Monitor in ICU, can likely transfer to floor once pressors weaned off Visit type - Emergency Visit Emergency Visit: Yes ED Registration Date: 12/30/18 Care time: The patient presented to the Emergency Department on the above date and was hospitalized for further evaluation of their emergent condition. - New Patient This patient is new to me today: No - Critical Care Critical Care patient: Yes Total Critical Care Time (in minutes): 45 Critical Care Statement: The care of this patient involved high complexity decision making to prevent further life threatening deterioration of the patient 's condition and/or to evaluate & treat vital organ system(s) failure or risk of failure.
[2019-01-03] MEDS ORDERED: DEXTROSE 5%-WATER - 50 ML IVPB ONE (09:29)
[2019-01-03] MEDS ORDERED: cefTRIAXone SODIUM 1 GM VIAL ONE (09:29)
[2019-01-03] MEDS: CEFTRIAXONE 1 GM in DEXTROSE 5%-WATER - 50 ML IVPB SCH (09:34)
[2019-01-03] MEDS: MUPIROCIN 2% TOPICAL OINTMENT FOR DECOLONIZATION NS SCH ×2 (09:36→22:16)
--- NOTE | 2019-01-03 10:26 | PN ---
Progress Note, Physician History of Present Illness: Dyspneic back on bipap, renal fxn continues to decline and remains oliguric - Current Medication List Current Medications: Active Medications Albuterol Sulfate (Ventolin 0.083% Nebulizer Soln -) 1 amp NEB Q6H PRN PRN Reason: SHORT OF BREATH/WHEEZING Last Admin: 01/03/19 04:25 Dose: 1 amp Albuterol/Ipratropium (Duoneb -) 1 amp NEB RQID JAYCE Artificial Tears (Artificial Tears) 1 drop OU TID PRN PRN Reason: DRY EYES Last Admin: 01/02/19 15:29 Dose: 1 drop Chlorhexidine Gluconate (Hibiclens For Decolonization -) 1 applic TP HS [facility] Last Admin: 01/02/19 22:11 Dose: 1 applic Dopamine HCl/Dextrose (Dopamine 400 Mg/D5w -) 400,000 mcg in 250 mls @ 17.606 mls/hr IVPB TITR JAYCE; Protocol Last Admin: 01/02/19 11:00 Dose: Not Given Norepinephrine Bitartrate 4, (000 mcg/ Dextrose) 500 mls @ 37.5 mls/hr IV TITR JAYCE; Protocol Last Titration: 01/03/19 07:10 Dose: 0 mcg/min, 0 mls/hr Ceftriaxone Sodium 1 gm/ (Dextrose) 50 mls @ 100 mls/hr IVPB DAILY JAYCE Last Admin: 01/03/19 09:34 Dose: 100 mls/hr Mupirocin (Bactroban Ointment (For Decolonization) -) 1 applic NS BID [facility] Stop: 01/05/19 11:14 Last Admin: 01/03/19 09:36 Dose: 1 applic Rosuvastatin Calcium (Crestor -) 5 mg PO HS JAYCE Last Admin: 01/02/19 22:10 Dose: 5 mg Warfarin Sodium (Coumadin -) 5 mg PO 1800 JAYCE Last Admin: 01/02/19 19:11 Dose: 5 mg - Objective Vital Signs: Vital Signs Temperature 97.7 F 01/03/19 10:00 Pulse Rate 62 01/03/19 10:00 Respiratory Rate 17 01/03/19 10:00 Blood Pressure 103/56 L 01/03/19 10:00 O2 Sat by Pulse Oximetry (%) 99 01/03/19 08:00 Constitutional: Yes: No Distress, Calm Neck: Yes: Supple Cardiovascular: Yes: Pulse Irregular Respiratory: Yes: Regular, Diminished, On BiPap Gastrointestinal: Yes: Normal Bowel Sounds, Soft Edema: Yes Labs: CBC, BMP 01/03/19 05:30 01/03/19 05:30 INR, PTT INR 1.93 (0.83-1.09) H 01/03/19 05:30 - ....Imaging Chest X-ray: Report Reviewed (Increased congestion and pleural effusions) Problem List - Problems (1) [id number] kidney injury Code(s): N17.9 - ACUTE KIDNEY FAILURE, UNSPECIFIED; N18.9 - CHRONIC KIDNEY DISEASE, UNSPECIFIED Qualifiers: Acute renal failure type: unspecified Chronic kidney disease stage: unspecified stage Qualified Code(s): N17.9 - Acute kidney failure, unspecified ; N18.9 - Chronic kidney disease, unspecified (2) Acute on chronic diastolic (congestive) heart failure Code(s): I50.33 - ACUTE ON CHRONIC DIASTOLIC (CONGESTIVE) HEART FAILURE (3) CAD (coronary artery disease) Code(s): I25.10 - ATHSCL HEART DISEASE OF [place] CORONARY ARTERY W/O ANG PCTRS Qualifiers: Coronary Disease-Associated Artery/Lesion type: [place] artery [place] vs. transplanted heart: [place] heart Associated angina: without angina Qualified Code(s): I25.10 - Atherosclerotic heart disease of [place] coronary artery without angina pectoris (4) COPD (chronic obstructive pulmonary disease) Code(s): J44.9 - CHRONIC OBSTRUCTIVE PULMONARY DISEASE, UNSPECIFIED Qualifiers: COPD type: unspecified COPD Qualified Code(s): J44.9 - Chronic obstructive pulmonary disease, unspecified (5) Chronic anemia Code(s): D64.9 - ANEMIA, UNSPECIFIED (6) Chronic anticoagulation Code(s): Z79.01 - PRECISION GRINDER EXTERNAL (CURRENT) USE OF ANTICOAGULANTS (7) Edema of both legs Code(s): R60.0 - LOCALIZED EDEMA (8) Elevated INR Code(s): R79.1 - ABNORMAL COAGULATION PROFILE (9) HTN (hypertension) Code(s): I10 - ESSENTIAL (PRIMARY) HYPERTENSION Qualifiers: Hypertension type: essential hypertension Qualified Code(s): I10 - Essential (primary) hypertension (10) Hx of CABG Code(s): Z95.1 - PRESENCE OF AORTOCORONARY BYPASS GRAFT (11) SOB (shortness of breath) Code(s): R06.02 - SHORTNESS OF BREATH (12) Status post insertion of drug-eluting stent into left anterior descending ( LAD) artery Code(s): Z95.5 - PRESENCE OF CORONARY ANGIOPLASTY IMPLANT AND GRAFT (13) Anemia Code(s): D64.9 - ANEMIA, UNSPECIFIED Qualifiers: Anemia type: unspecified type Qualified Code(s): D64.9 - Anemia, unspecified (14) Atrial fibrillation Code(s): I48.91 - UNSPECIFIED ATRIAL FIBRILLATION Qualifiers: Atrial fibrillation type: permanent Qualified Code(s): I48.2 - Chronic atrial fibrillation (15) Hyperlipidemia Code(s): E78.5 - HYPERLIPIDEMIA, UNSPECIFIED Qualifiers: Hyperlipidemia type: pure hypercholesterolemia Qualified Code(s): E78.00 - Pure hypercholesterolemia, unspecified; E78.0 - Pure hypercholesterolemia (16) Subendocardial ischemia Code(s): I24.8 - OTHER FORMS OF ACUTE ISCHEMIC HEART DISEASE Assessment/Plan 12/31/2018 Echo: Normal LV size and fxn LVEF 60%, mod dilated RV with mild decreased RV fxn, mild-mod AUTUMN, mild MR, mod TR RVSP 31 mmHg 1. Acute on chronic LV diastolic failure with moderate TR and subendocardial ischemia 2. Acute Hypoxic Respiratory Failure 3. CAD s/p CABG and PCI/LUIS EDUARDO, angina 4. Permanent atrial fibrillation [id number] of 5 with subtherapeutic INR 5. HTN/HCVD 6. Hypercholesterolemia 7. COPD 8. Anemia 9. Acute on CKD 10. Moderate carotid stenosis PLAN: 1. Trial of Lasix gtt with monitoring renal function and electrolytes. Monitor renal output with christina catheter, will likely require HD 2. Weaned off Levophed gtt, resume Ranexa 500 bid, Toprol XL 25 qd and Crestor 5 qd as hemodynamics tolerate 3. Coumadin held on heparin gtt pending Shiley placement 4. BIPAP, O2 to keep SpO2 >90% 5. Transfuse to maintain Hgb>8.0
[2019-01-03] MEDS: DOPAMINE 400 MG/D5W - 400,000 MCG/250 ML INFUS.BAG IVPB SCH (11:30)
[2019-01-03] MEDS ORDERED: HEPARIN NA (PORCINE) 5,000 UNITS/ML 1ML VIAL IVPUSH PRN ×2 (11:54)
[2019-01-03] MEDS ORDERED: FUROSEMIDE INJECTION 100 MG in SODIUM CHLORIDE 40 ML IVPB SCH (12:00)
--- NOTE | 2019-01-03 12:41 | PN ---
Teaching Attending Note Name of Resident: Venancio Combs ATTENDING PHYSICIAN STATEMENT I saw and evaluated the patient. I reviewed the resident's note and discussed the case with the resident. I agree with the resident's findings and plan as documented. SUBJECTIVE: Patient seen and examined in the ICU. Still with poor urine output and worsening renal function. Breathing slightly better today. Currently off levophed drip. OBJECTIVE: Intake & Output 12/31/18 01/01/19 01/02/19 01/03/19 23:59 23:59 23:59 23:59 Intake Total 908 2475 890 55.6 Output Total 400 500 215 0 Balance 508 1975 675 55.6 Weight 207 lb 0.225 oz 207 lb 211 lb 6.773 oz Last Vital Signs Temp Pulse Resp BP Pulse Ox 97.8 F 65 16 96/81 97 01/03/19 12:10 01/03/19 12:10 01/03/19 12:10 01/03/19 12:10 01/03/19 08:45 Active Medications Albuterol Sulfate (Ventolin 0.083% Nebulizer Soln -) 1 amp NEB Q6H PRN PRN Reason: SHORT OF BREATH/WHEEZING Last Admin: 01/03/19 04:25 Dose: 1 amp Albuterol/Ipratropium (Duoneb -) 1 amp NEB RQID JAYCE Last Admin: 01/03/19 07:35 Dose: 1 amp Artificial Tears (Artificial Tears) 1 drop OU TID PRN PRN Reason: DRY EYES Last Admin: 01/02/19 15:29 Dose: 1 drop Chlorhexidine Gluconate (Hibiclens For Decolonization -) 1 applic TP HS JAYCE Last Admin: 01/02/19 22:11 Dose: 1 applic Heparin Sodium (Porcine) (Heparin -) 1,000 unit IVPUSH PRN PRN PRN Reason: Heparin Heparin Sodium (Porcine) (Heparin -) 5,000 unit IVPUSH PRN PRN PRN Reason: Heparin Dopamine HCl/Dextrose (Dopamine 400 Mg/D5w -) 400,000 mcg in 250 mls @ 17.606 mls/hr IVPB TITR JAYCE; Protocol Last Admin: 01/02/19 11:00 Dose: Not Given Norepinephrine Bitartrate 4, (000 mcg/ Dextrose) 500 mls @ 37.5 mls/hr IV TITR JAYCE; Protocol Last Titration: 01/03/19 07:10 Dose: 0 mcg/min, 0 mls/hr Ceftriaxone Sodium 1 gm/ (Dextrose) 50 mls @ 100 mls/hr IVPB DAILY JAYCE Last Admin: 01/03/19 09:34 Dose: 100 mls/hr Furosemide 100 mg/ Sodium (Chloride) 50 mls @ 5 mls/hr IVPB TITR JAYCE; Protocol Heparin Sodium/Dextrose (Heparin Infusion -) 25,000 units in 500 mls @ 20 mls/ hr IV TITR JAYCE; Protocol Mupirocin (Bactroban Ointment (For Decolonization) -) 1 applic NS BID JAYCE Stop: 01/05/19 11:14 Last Admin: 01/03/19 09:36 Dose: 1 applic Rosuvastatin Calcium (Crestor -) 5 mg PO HS JAYCE Last Admin: 01/02/19 22:10 Dose: 5 mg Warfarin Sodium (Coumadin -) 5 mg PO 1800 JAYCE Last Admin: 01/02/19 19:11 Dose: 5 mg Gen: tachypneic at rest Heart: RRR Lung: scattered rhonchi Abd: soft, nontender Ext: + edema Laboratory Results - last 24 hr 01/02/19 01/02/19 01/03/19 05:30 12:20 05:30 WBC 3.9 L RBC 2.37 L Hgb 7.9 L Hct 22.7 L MCV 96.0 MCH 33.5 MCHC 34.9 RDW 17.1 H Plt Count 127 L MPV 7.2 L PT with INR INR Sodium Potassium Chloride Carbon Dioxide Anion Gap BUN Creatinine Creat Clearance w eGFR Random Glucose Calcium Phosphorus Magnesium Double Strand DNA Ab <1 Hepatitis A Ab Total Negative Hep Bs Antigen Negative Hep Bs Antibody Non reactive Hep B Core Total Ab Negative Blood Type O POSITIVE Antibody Screen Negative Crossmatch See Detail 01/03/19 01/03/19 05:30 05:30 WBC RBC Hgb Hct MCV MCH MCHC RDW Plt Count MPV PT with INR 22.90 H INR 1.93 H Sodium 129 L Potassium 4.5 Chloride 95 L Carbon Dioxide 23 Anion Gap 11 BUN 88 H Creatinine 5.1 H Creat Clearance w eGFR 10.73 Random Glucose 103 Calcium 7.5 L Phosphorus 8.6 H Magnesium 2.6 H Double Strand DNA Ab Hepatitis A Ab Total Hep Bs Antigen Hep Bs Antibody Hep B Core Total Ab Blood Type Antibody Screen Crossmatch ASSESSMENT AND PLAN: Acute Hypoxic Respiratory Failure Acute on Chronic Diastolic Heart Failure Volume Overload Atrial Fibrillation Acute on Chronic Renal Failure COPD Anemia Hypercholesterolemia - Trial of Lasix drip - monitor urine output, creatinine - daily weights - Levophed drip if needed to maintain MAP>65 - O2 to keep SpO2 >90% - BiPAP to assist in work of breathing - rate control - continue anticoagulation - ICU monitoring for tenuous hemodynamics and likely need for acute HD by tomorrow Dr Guevara critical care time spent in reviewing chart, evaluating patient and formulating plan 35 min
--- NOTE | 2019-01-03 14:12 | PN ---
Progress Note, Physician History of Present Illness: Pt seen and examined at bedside. He is awake and alert. He remains oliguric. He does have shortness of breath. We discussed HD therapy and he agrees. Spoke to him and his at length. Explained all the risks. - Current Medication List Current Medications: Active Medications Albuterol Sulfate (Ventolin 0.083% Nebulizer Soln -) 1 amp NEB Q6H PRN PRN Reason: SHORT OF BREATH/WHEEZING Last Admin: 01/03/19 04:25 Dose: 1 amp Albuterol/Ipratropium (Duoneb -) 1 amp NEB RQID JAYCE Last Admin: 01/03/19 11:25 Dose: 1 amp Artificial Tears (Artificial Tears) 1 drop OU TID PRN PRN Reason: DRY EYES Last Admin: 01/02/19 15:29 Dose: 1 drop Chlorhexidine Gluconate (Hibiclens For Decolonization -) 1 applic TP HS JAYCE Last Admin: 01/02/19 22:11 Dose: 1 applic Heparin Sodium (Porcine) (Heparin -) 1,000 unit IVPUSH PRN PRN PRN Reason: Heparin Heparin Sodium (Porcine) (Heparin -) 5,000 unit IVPUSH PRN PRN PRN Reason: Heparin Dopamine HCl/Dextrose (Dopamine 400 Mg/D5w -) 400,000 mcg in 250 mls @ 17.606 mls/hr IVPB TITR JAYCE; Protocol Last Admin: 01/03/19 11:30 Dose: Not Given Norepinephrine Bitartrate 4, (000 mcg/ Dextrose) 500 mls @ 37.5 mls/hr IV TITR JAYCE; Protocol Last Titration: 01/03/19 07:10 Dose: 0 mcg/min, 0 mls/hr Ceftriaxone Sodium 1 gm/ (Dextrose) 50 mls @ 100 mls/hr IVPB DAILY JAYCE Last Admin: 01/03/19 09:34 Dose: 100 mls/hr Furosemide 100 mg/ Sodium (Chloride) 50 mls @ 5 mls/hr IVPB TITR JAYCE; Protocol Last Admin: 01/03/19 13:47 Dose: 10 mg/hr, 5 mls/hr Heparin Sodium/Dextrose (Heparin Infusion -) 25,000 units in 500 mls @ 20 mls/ hr IV TITR JAYCE; Protocol Mupirocin (Bactroban Ointment (For Decolonization) -) 1 applic NS BID JAYCE Stop: 01/05/19 11:14 Last Admin: 01/03/19 09:36 Dose: 1 applic Rosuvastatin Calcium (Crestor -) 5 mg PO HS [facility] Last Admin: 01/02/19 22:10 Dose: 5 mg Warfarin Sodium (Coumadin -) 5 mg PO 1800 [facility] Last Admin: 01/02/19 19:11 Dose: 5 mg - Objective Vital Signs: Vital Signs Temperature 97.8 F 01/03/19 12:10 Pulse Rate 65 01/03/19 12:10 Respiratory Rate 16 01/03/19 12:10 Blood Pressure 96/81 01/03/19 12:10 O2 Sat by Pulse Oximetry (%) 97 01/03/19 11:45 Constitutional: Yes: Calm Eyes: Yes: Conjunctiva Clear HENT: Yes: Atraumatic Neck: Yes: Supple Cardiovascular: Yes: S1, S2 Respiratory: Yes: On Nasal O2, Rhonchi Gastrointestinal: Yes: Soft Genitourinary: Yes: Lester Present Musculoskeletal: Yes: Muscle Weakness Edema: Yes Edema: LLE: 2+, RLE: 2+ Integumentary: Yes: WNL Neurological: Yes: Oriented Psychiatric: Yes: Oriented Labs: CBC, BMP 01/03/19 05:30 01/03/19 05:30 INR, PTT INR 1.93 (0.83-1.09) H 01/03/19 05:30 - ....Imaging Chest X-ray: Report Reviewed Problem List - Problems (1) [id number] kidney injury Code(s): N17.9 - ACUTE KIDNEY FAILURE, UNSPECIFIED; N18.9 - CHRONIC KIDNEY DISEASE, UNSPECIFIED Qualifiers: Acute renal failure type: unspecified Chronic kidney disease stage: unspecified stage Qualified Code(s): N17.9 - Acute kidney failure, unspecified ; N18.9 - Chronic kidney disease, unspecified (2) Congestive heart failure Code(s): I50.9 - HEART FAILURE, UNSPECIFIED Qualifiers: Heart failure type: unspecified Heart failure chronicity: acute on chronic Qualified Code(s): I50.9 - Heart failure, unspecified Assessment/Plan Current Medications Generic Name Dose Route Start Last Admin Trade Name Freq PRN Reason Stop Dose Admin Albuterol Sulfate 1 amp 01/02/19 20:36 01/03/19 04:25 Ventolin 0.083% Nebulizer Soln - NEB 1 amp Q6H PRN Administration SHORT OF BREATH/WHEEZING Albuterol/Ipratropium 1 amp 01/03/19 08:00 01/03/19 11:25 Duoneb - NEB 1 amp RQID JAYCE Administration Artificial Tears 1 drop 01/02/19 14:09 01/02/19 15:29 Artificial Tears OU 1 drop TID PRN Administration DRY EYES Chlorhexidine Gluconate 1 applic 12/31/18 22:00 01/02/19 22:11 Hibiclens For Decolonization - TP 1 applic HS JAYCE Administration Heparin Sodium (Porcine) 1,000 unit 01/03/19 11:54 Heparin - IVPUSH PRN PRN Heparin Heparin Sodium (Porcine) 5,000 unit 01/03/19 11:54 Heparin - IVPUSH PRN PRN Heparin Dopamine HCl/Dextrose 400,000 mcg in 250 mls @ 17.606 mls/hr 12/31/18 11:30 01/03/19 11:30 Dopamine 400 Mg/D5w - IVPB Not Given TITR JAYCE Protocol 5 MCG/KG/MIN Norepinephrine Bitartrate 4, 500 mls @ 37.5 mls/hr 12/31/18 14:45 01/03/19 07 :10 000 mcg/ Dextrose IV 0 mcg/min TITR JAYCE 0 mls/hr Titration Protocol 5 MCG/MIN Ceftriaxone Sodium 1 gm/ 50 mls @ 100 mls/hr 01/01/19 10:00 01/03/19 09:34 Dextrose IVPB 100 mls/hr DAILY JAYCE Administration Furosemide 100 mg/ Sodium 50 mls @ 5 mls/hr 01/03/19 12:00 01/03/19 13:47 Chloride IVPB 10 mg/hr TITR JAYCE 5 mls/hr Administration Protocol 10 MG/HR Heparin Sodium/Dextrose 25,000 units in 500 mls @ 20 mls/hr 01/03/19 12:00 Heparin Infusion - IV TITR JAYCE Protocol 1,000 UNITS/HR Mupirocin 1 applic 12/31/18 11:15 01/03/19 09:36 Bactroban Ointment (For Decolonization) - NS 01/05/19 11:14 1 applic BID JAYCE Administration Rosuvastatin Calcium 5 mg 01/02/19 22:00 01/02/19 22:10 Crestor - PO 5 mg HS JAYCE Administration Warfarin Sodium 5 mg 01/02/19 18:00 01/02/19 19:11 Coumadin - PO 5 mg 1800 JAYCE Administration Impression 1. ANGELA 2. CKD 3. CHF 4. hypotension 5. resp failure requiring bipap 6. a-fib 7. hld 8. bilateral pleural effusions Plan - start lasix drip as last trial - HD likely tomorrow - will need access - coumadin on hold and he will be on heparin - discussed with ICU team - pt and agree to HD tomorrow if no result with lasix drip - repeat labs in am - monitor pulse ox - avoid nsaids - avoid hypotensive episodes if possible
[2019-01-03] MEDS: HEPARIN INFUSION - 25,000 UNITS/500 ML INFUS.BAG IV SCH (14:15)
[2019-01-03] MEDS: NOREPINEPHRINE BITARTRATE 4,000 MCG in DEXTROSE 5%-WATER - 496 ML IV SCH (14:45)
--- NOTE | 2019-01-03 18:10 | PN ---
Physical Exam: SUBJECTIVE: Patient seen and examined; no complaints; started on lasix drip; plan for HD; OBJECTIVE: Vital Signs Period Temp Pulse Resp BP Sys/Ascencio Pulse Ox Last 24 Hr 97.5 F-98.1 F 56-114 16-25 96-128/39-81 96-100 GENERAL: The patient is awake, alert, and fully oriented, in no acute distress. LUNGS: Breath sounds equal, clear to auscultation bilaterally, no wheezes, no crackles, no accessory muscle use. Neck; left IJ HEART: Regular rate and rhythm, S1, S2 without murmur, rub or gallop. ABDOMEN: Soft, nontender, nondistended, normoactive bowel sounds, no guarding, no rebound, no hepatosplenomegaly, no masses. EXTREMITIES: 2+ pulses, warm, well-perfused, no edema. ; still with b/l edema; wrinnkled legs NEUROLOGICAL: [id number] Laboratory Results - last 24 hr 01/02/19 01/03/19 01/03/19 05:30 05:30 05:30 WBC 3.9 L RBC 2.37 L Hgb 7.9 L Hct 22.7 L MCV 96.0 MCH 33.5 MCHC 34.9 RDW 17.1 H Plt Count 127 L MPV 7.2 L PT with INR 22.90 H INR 1.93 H PTT (Actin FS) Sodium Potassium Chloride Carbon Dioxide Anion Gap BUN Creatinine Creat Clearance w eGFR Random Glucose Calcium Phosphorus Magnesium Double Strand DNA Ab <1 Hepatitis A Ab Total Negative Hep Bs Antigen Negative Hep Bs Antibody Non reactive Hep B Core Total Ab Negative 01/03/19 01/03/19 05:30 12:20 WBC RBC Hgb Hct MCV MCH MCHC RDW Plt Count MPV PT with INR INR PTT (Actin FS) 41.7 H Sodium 129 L Potassium 4.5 Chloride 95 L Carbon Dioxide 23 Anion Gap 11 BUN 88 H Creatinine 5.1 H Creat Clearance w eGFR 10.73 Random Glucose 103 Calcium 7.5 L Phosphorus 8.6 H Magnesium 2.6 H Double Strand DNA Ab Hepatitis A Ab Total Hep Bs Antigen Hep Bs Antibody Hep B Core Total Ab Active Medications Generic Name Dose Route Start Last Admin Trade Name Freq PRN Reason Stop Dose Admin Albuterol Sulfate 1 amp 01/02/19 20:36 01/03/19 14:28 Ventolin 0.083% Nebulizer Soln - NEB 1 amp Q6H PRN Administration SHORT OF BREATH/WHEEZING Albuterol/Ipratropium 1 amp 01/03/19 08:00 01/03/19 16:20 Duoneb - NEB 1 amp RQID JAYCE Administration Artificial Tears 1 drop 01/02/19 14:09 01/02/19 15:29 Artificial Tears OU 1 drop TID PRN Administration DRY EYES Chlorhexidine Gluconate 1 applic 12/31/18 22:00 01/02/19 22:11 Hibiclens For Decolonization - TP 1 applic HS JAYCE Administration Heparin Sodium (Porcine) 1,000 unit 01/03/19 11:54 Heparin - IVPUSH PRN PRN Heparin Heparin Sodium (Porcine) 5,000 unit 01/03/19 11:54 Heparin - IVPUSH PRN PRN Heparin Dopamine HCl/Dextrose 400,000 mcg in 250 mls @ 17.606 mls/hr 12/31/18 11:30 01/03/19 11:30 Dopamine 400 Mg/D5w - IVPB Not Given TITR JACYE Protocol 5 MCG/KG/MIN Norepinephrine Bitartrate 4, 500 mls @ 37.5 mls/hr 12/31/18 14:45 01/03/19 14 :45 000 mcg/ Dextrose IV Not Given TITR JAYCE Protocol 5 MCG/MIN Ceftriaxone Sodium 1 gm/ 50 mls @ 100 mls/hr 01/01/19 10:00 01/03/19 09:34 Dextrose IVPB 100 mls/hr DAILY JAYCE Administration Furosemide 100 mg/ Sodium 50 mls @ 5 mls/hr 01/03/19 12:00 01/03/19 13:47 Chloride IVPB 10 mg/hr TITR JAYCE 5 mls/hr Administration Protocol 10 MG/HR Heparin Sodium/Dextrose 25,000 units in 500 mls @ 20 mls/hr 01/03/19 12:00 14:15 Heparin Infusion - IV 1,000 units/hr TITR JAYCE 20 mls/hr Administration Protocol 1,000 UNITS/HR Mupirocin 1 applic 12/31/18 11:15 01/03/19 09:36 Bactroban Ointment (For Decolonization) - NS 01/05/19 11:14 1 applic BID JAYCE Administration Rosuvastatin Calcium 5 mg 01/02/19 22:00 01/02/19 22:10 Crestor - PO 5 mg HS JAYCE Administration Warfarin Sodium 5 mg 01/02/19 18:00 01/02/19 19:11 Coumadin - PO 5 mg 1800 JAYCE Administration ASSESSMENT/PLAN: This is a 88 year old male with a history of CAD s/p CABG, s/p PCI/LUIS EDUARDO , persistnat atrial fibrillation, diastolic congestive heart failure, HTN, carotid stenosis who presented with worsening SON, orthopnea, b/l leg edema, found to be in acute heart failure. #Acute on chronic diastolic heart failure -now on lasix drip' monitor urine output -daily weights, strict I/Os; christina in place -cardio , renal #ANGELA: -creatinine not improving -plan for HD #Acute hypoxic respiratory failure - sec to vol overload; improved; NC #Atrial fibrillation -rate controlled -on heparin ggt #Acute on chronic kidney disease -cardio; renal vs sec to hypotension; UTI -urine lytes -stirct i/os -ua, uc -kidney/bladder US -renal mike #Anemia -most likely sec to ckd -will order iron studies; in case of need for venofer/then possible epogen #UTI: -ceftriaxone ; f/u uc #COPD -; cont IH bronchodilators #HTN -hold home meds; currently hypotensive on dopamine #HLD -statin Diet: regular Visit type - Emergency Visit Emergency Visit: Yes ED Registration Date: 12/30/18 Care time: The patient presented to the Emergency Department on the above date and was hospitalized for further evaluation of their emergent condition. - New Patient This patient is new to me today: No - Critical Care Critical Care patient: No
--- NOTE | 2019-01-03 18:27 | PN ---
Teaching Attending Note Name of Resident: Ernestina Hodges ATTENDING PHYSICIAN STATEMENT I saw and evaluated the patient. I reviewed the resident's note and discussed the case with the resident. I agree with the resident's findings and plan as documented. SUBJECTIVE: Mr Aleman says he is feeling better. Denies cp, sob, n/v. OBJECTIVE: Last Vital Signs Temp Pulse Resp BP Pulse Ox 36.7 C 70 20 97/55 L 97 01/03/19 18:00 01/03/19 18:00 01/03/19 18:00 01/03/19 18:00 01/03/19 15:45 Gen: nad Pulm: ronchi bilaterally CV: rrr w/ 11/20 SOFIE Abd: +bs, s/nt/nd Ext: 1+ BLE edema, unchanged CBC, BMP 01/03/19 05:30 01/03/19 05:30 ASSESSMENT AND PLAN: (1) Acute on chronic diastolic (congestive) heart failure Assessment/Plan: -on levophed -start on lasix gtt Code(s): I50.33 - ACUTE ON CHRONIC DIASTOLIC (CONGESTIVE) HEART FAILURE (2) Ifuie-ot-bacnwmm kidney injury Assessment/Plan: -Dr Montgomery following -may need HD Code(s): N17.9 - ACUTE KIDNEY FAILURE, UNSPECIFIED; N18.9 - CHRONIC KIDNEY DISEASE, UNSPECIFIED Qualifiers: Acute renal failure type: unspecified Chronic kidney disease stage: unspecified stage Qualified Code(s): N17.9 - Acute kidney failure, unspecified ; N18.9 - Chronic kidney disease, unspecified (3) Warfarin toxicity Assessment/Plan: -INR subtherapeutic -coumadin restarted Code(s): T45.511A - POISONING BY ANTICOAGULANTS, ACCIDENTAL, INIT (4) CAD (coronary artery disease) Assessment/Plan: -quiescent -cardiology following Code(s): I25.10 - ATHSCL HEART DISEASE OF [place] CORONARY ARTERY W/O ANG PCTRS Qualifiers: Coronary Disease-Associated Artery/Lesion type: [place] artery [place] vs. transplanted heart: [place] heart Associated angina: without angina Qualified Code(s): I25.10 - Atherosclerotic heart disease of [place] coronary artery without angina pectoris (5) COPD (chronic obstructive pulmonary disease) Assessment/Plan: -not in exacerbation -pulmonary following Code(s): J44.9 - CHRONIC OBSTRUCTIVE PULMONARY DISEASE, UNSPECIFIED Qualifiers: COPD type: unspecified COPD Qualified Code(s): J44.9 - Chronic obstructive pulmonary disease, unspecified (6) Chronic anemia Assessment/Plan: -monitor -may need transfusion but can currently hold Code(s): D64.9 - ANEMIA, UNSPECIFIED (7) HTN (hypertension) Assessment/Plan: -hypotensive -on pressors as above Code(s): I10 - ESSENTIAL (PRIMARY) HYPERTENSION Qualifiers: Hypertension type: essential hypertension Qualified Code(s): I10 - Essential (primary) hypertension (8) Pulmonary hypertension Assessment/Plan: -noted Code(s): I27.2 - OTHER SECONDARY PULMONARY HYPERTENSION * DO NOT USE * (9) Atrial fibrillation Assessment/Plan: -currently in sinus -history of bradycardia and planning for pacemaker Code(s): I48.91 - UNSPECIFIED ATRIAL FIBRILLATION Qualifiers: Atrial fibrillation type: permanent Qualified Code(s): I48.2 - Chronic atrial fibrillation (10) Hyperlipidemia Assessment/Plan: -on crestor as an outpatient Code(s): E78.5 - HYPERLIPIDEMIA, UNSPECIFIED Qualifiers: Hyperlipidemia type: pure hypercholesterolemia Qualified Code(s): E78.00 - Pure hypercholesterolemia, unspecified; E78.0 - Pure hypercholesterolemia Problem List - Problems (1) Acute on chronic diastolic (congestive) heart failure Code(s): I50.33 - ACUTE ON CHRONIC DIASTOLIC (CONGESTIVE) HEART FAILURE (2) Qnuvd-xq-ezhehrn kidney injury Code(s): N17.9 - ACUTE KIDNEY FAILURE, UNSPECIFIED; N18.9 - CHRONIC KIDNEY DISEASE, UNSPECIFIED Qualifiers: Acute renal failure type: unspecified Chronic kidney disease stage: unspecified stage Qualified Code(s): N17.9 - Acute kidney failure, unspecified ; N18.9 - Chronic kidney disease, unspecified (3) Warfarin toxicity Code(s): T45.511A - POISONING BY ANTICOAGULANTS, ACCIDENTAL, INIT (4) CAD (coronary artery disease) Code(s): I25.10 - ATHSCL HEART DISEASE OF [place] CORONARY ARTERY W/O ANG PCTRS Qualifiers: Coronary Disease-Associated Artery/Lesion type: [place] artery [place] vs. transplanted heart: [place] heart Associated angina: without angina Qualified Code(s): I25.10 - Atherosclerotic heart disease of [place] coronary artery without angina pectoris (5) COPD (chronic obstructive pulmonary disease) Code(s): J44.9 - CHRONIC OBSTRUCTIVE PULMONARY DISEASE, UNSPECIFIED Qualifiers: COPD type: unspecified COPD Qualified Code(s): J44.9 - Chronic obstructive pulmonary disease, unspecified (6) Chronic anemia Code(s): D64.9 - ANEMIA, UNSPECIFIED (7) HTN (hypertension) Code(s): I10 - ESSENTIAL (PRIMARY) HYPERTENSION Qualifiers: Hypertension type: essential hypertension Qualified Code(s): I10 - Essential (primary) hypertension (8) Pulmonary hypertension Code(s): I27.2 - OTHER SECONDARY PULMONARY HYPERTENSION * DO NOT USE * (9) Atrial fibrillation Code(s): I48.91 - UNSPECIFIED ATRIAL FIBRILLATION Qualifiers: Atrial fibrillation type: permanent Qualified Code(s): I48.2 - Chronic atrial fibrillation (10) Hyperlipidemia Code(s): E78.5 - HYPERLIPIDEMIA, UNSPECIFIED Qualifiers: Hyperlipidemia type: pure hypercholesterolemia Qualified Code(s): E78.00 - Pure hypercholesterolemia, unspecified; E78.0 - Pure hypercholesterolemia
[2019-01-03] MEDS: WARFARIN NA 5 MG TABLET (UD) PO SCH (18:32)
[2019-01-03] MEDS ORDERED: PT OWN MED DRAWER 7, Y5N ONE (20:34)
[2019-01-03] MEDS: ROSUVASTATIN CA 5 MG TABLET (FP) PO SCH (22:14)
[2019-01-03] MEDS: FUROSEMIDE INJECTION 100 MG in SODIUM CHLORIDE 40 ML IVPB SCH (22:15)
[2019-01-03] MEDS: CHLORHEXIDINE GLUCONATE 4% CLEANSER FOR DECOLONIZATION TP SCH (22:16)
[2019-01-04] MEDS ORDERED: PT OWN MED DRAWER 7, Y5N ONE (03:56)
[2019-01-04 07:28] LABS: ANION GAP 12 MMOL/L (8-16); BLOOD UREA NITROGEN 94 mg/dL (7-18); CALCIUM 7.5 mg/dL (8.5-10.1); CHLORIDE 96 mmol/L (98-107); CO2 22 mmol/L (21-32); CREATININE 5.6 mg/dL (0.55-1.3); GLUCOSE,RANDOM 103 mg/dL (74-106); MAGNESIUM 2.5 mg/dL (1.8-2.4); POTASSIUM 4.4 mmol/L (3.5-5.1); SODIUM 129 mmol/L (136-145)
--- NOTE | 2019-01-04 07:29 | PN ---
Progress Note (short form) - Note Progress Note: Chief Complaint: Events noted, notes reviewed, dyspnea improved, lower extremity edema improved, denies any chest pain History of Present Illness: Seen and examined in the ICU. Events noted, notes reviewed, dyspnea improved, lower extremity edema improved, denies any chest pain Remains on Lasix drip, off of pressors Chest x-ray noted Echocardiography 12/31/2018 Normal LV size and function/LVEF 60%, mod dilated RV with mild decreased RV function, mild-mod AUTUMN, mild MR, mod TR with RVSP 31 mmHg - Current Medication List Current Medications Albuterol Sulfate (Ventolin 0.083% Nebulizer Soln -) 1 amp NEB Q6H PRN PRN Reason: SHORT OF BREATH/WHEEZING Last Admin: 01/03/19 14:28 Dose: 1 amp Albuterol/Ipratropium (Duoneb -) 1 amp NEB RQID JAYCE Last Admin: 01/03/19 21:25 Dose: 1 amp Artificial Tears (Artificial Tears) 1 drop OU TID PRN PRN Reason: DRY EYES Last Admin: 01/02/19 15:29 Dose: 1 drop Chlorhexidine Gluconate (Hibiclens For Decolonization -) 1 applic TP HS JAYCE Last Admin: 01/03/19 22:16 Dose: 1 applic Heparin Sodium (Porcine) (Heparin -) 1,000 unit IVPUSH PRN PRN PRN Reason: Heparin Heparin Sodium (Porcine) (Heparin -) 5,000 unit IVPUSH PRN PRN PRN Reason: Heparin Norepinephrine Bitartrate 4, (000 mcg/ Dextrose) 500 mls @ 37.5 mls/hr IV TITR JAYCE; Protocol Last Admin: 01/03/19 14:45 Dose: Not Given Ceftriaxone Sodium 1 gm/ (Dextrose) 50 mls @ 100 mls/hr IVPB DAILY JAYCE Last Admin: 01/03/19 09:34 Dose: 100 mls/hr Heparin Sodium/Dextrose (Heparin Infusion -) 25,000 units in 500 mls @ 20 mls/ hr IV TITR JAYCE; Protocol Last Titration: 01/04/19 03:51 Dose: 1,000 units/hr, 20 mls/hr Furosemide 100 mg/ Sodium (Chloride) 50 mls @ 7.5 mls/hr IVPB TITR JAYCE; Protocol Last Admin: 01/03/19 22:15 Dose: 15 mg/hr, 7.5 mls/hr Mupirocin (Bactroban Ointment (For Decolonization) -) 1 applic NS BID [facility] Stop: 01/05/19 11:14 Last Admin: 01/03/19 22:16 Dose: 1 applic Rosuvastatin Calcium (Crestor -) 5 mg PO HS [facility] Last Admin: 01/03/19 22:14 Dose: 5 mg Review of Systems Cardiovascular: As noted above Respiratory: denies: Cough or Sputum Production Gastrointestinal: denies: Nausea, Vomiting, Diarrhea, Constipation or Abdominal Discomfort Musculoskeletal: No Symptoms Reported Endocrine: No Symptoms Reported - Objective Vital Signs: Last Vital Signs Temp Pulse Resp BP Pulse Ox 98.6 F 65 26 H 111/47 L 100 01/04/19 02:00 01/04/19 06:00 01/04/19 06:00 01/04/19 06:00 01/04/19 03:10 Intake & Output 01/01/19 01/02/19 01/03/19 01/04/19 23:59 23:59 23:59 23:59 Intake Total 2475 890 320.3 519 Output Total 500 215 150 100 Balance 1975 675 170.3 419 Weight 207 lb 211 lb 6.773 oz Neck: Supple Negative JVD No Bruit Cardiovascular: S1 S2 Irregularly Irregular Grade 2/6 SM Respiratory: Diminished Breath Sounds at the Bases Bilaterally Gastrointestinal: Soft Benign Normal Bowel Sounds Ext: 1+ Edema Bilaterally Labs: CBC, BMP 01/03/19 05:30 01/04/19 05:30 Hepatic Panel Total Bilirubin 0.4 mg/dL (0.2-1) 01/01/19 05:30 AST 31 U/L (15-37) 01/01/19 05:30 ALT 21 U/L (13-61) 01/01/19 05:30 Alkaline Phosphatase 80 U/L (45-117) 01/01/19 05:30 Albumin 2.8 g/dl (3.4-5.0) L 01/01/19 05:30 INR, PTT INR 1.93 (0.83-1.09) H 01/03/19 05:30 Assessment/Plan ASSESSMENT: 1. Clinical presentation is consistent with acute on chronic class II-III NYHA classification LV failure related to diastolic LV dysfunction, clinically improved 2. CAD post CABG/PCI (stent) evidence of demand ischemia angina pectoris 3. Persistent atrial fibrillation [id number] score of 5 on Coumadin therapy, currently on Heparin/bridge 4. Hypertension, hypotension 5. Hypercholesterolemia 6. MR mild to moderate in severity 7. TR moderate in severity 8. Carotid stenosis, moderate in severity 9. COPD 10. Acute on chronic kidney disease 11. Anemia PLAN: 1. Continue Lasix drip with close monitoring or renal function 2. Ideally should be on B-Blockers, hemodynamics permitting 3. Ideally should be on ACEI or ARBS, pending renal function stabilization or HD initiation 4. Continue Crestor 5. Continue A/C with caution in view of the above noted anemia (transfuse to maintain Hg equal or > 8.0) 6. Consideration for HD initiation as per renal service related to lack of clinical response Celeste Rosales M.D.
[2019-01-04] MEDS: ALBUTEROL SO4 2.5/IPRATROPIUM 0.5 INH SOL 3 ML VIAL.NEB. NEB SCH ×4 (07:30→20:11)
[2019-01-04] MEDS: FUROSEMIDE INJECTION 100 MG in SODIUM CHLORIDE 40 ML IVPB SCH (08:00)
[2019-01-04 08:02] LABS: PHOSPHOROUS > 9.0 mg/dL (2.5-4.9)
[2019-01-04] MEDS ORDERED: cefTRIAXone SODIUM 1 GM VIAL ONE (08:42)
[2019-01-04] MEDS ORDERED: DEXTROSE 5%-WATER - 50 ML IVPB ONE (08:42)
--- NOTE | 2019-01-04 08:42 | PN ---
Progress Note (short form) - Note Progress Note: PULM/CCM Pt seen and examined in the ICU. Mild SOB in semi [place]'s. Remains off Levo but completely anuric w/ no response to Lasix gtt & worsening anasarca. Active Medications Albumin Human (Albumin Human 25%) 12.5 gm IVPB Q30M JAYCE Stop: 01/04/19 16:31 Albuterol Sulfate (Ventolin 0.083% Nebulizer Soln -) 1 amp NEB Q6H PRN PRN Reason: SHORT OF BREATH/WHEEZING Last Admin: 01/03/19 14:28 Dose: 1 amp Albuterol/Ipratropium (Duoneb -) 1 amp NEB RQID JAYCE Last Admin: 01/04/19 16:26 Dose: 1 amp Artificial Tears (Artificial Tears) 1 drop OU TID PRN PRN Reason: DRY EYES Last Admin: 01/04/19 09:55 Dose: 1 drop Chlorhexidine Gluconate (Hibiclens For Decolonization -) 1 applic TP HS [facility] Last Admin: 01/03/19 22:16 Dose: 1 applic Heparin Sodium (Porcine) (Heparin -) 1,000 unit IVPUSH PRN PRN PRN Reason: Heparin Heparin Sodium (Porcine) (Heparin -) 5,000 unit IVPUSH PRN PRN PRN Reason: Heparin Ceftriaxone Sodium 1 gm/ (Dextrose) 50 mls @ 100 mls/hr IVPB DAILY [facility] Last Admin: 01/04/19 09:54 Dose: 100 mls/hr Heparin Sodium/Dextrose (Heparin Infusion -) 25,000 units in 500 mls @ 20 mls/ hr IV TITR JAYCE; Protocol Last Admin: 01/04/19 12:00 Dose: 900 units/hr, 18 mls/hr Sodium Chloride (Normal Saline -) 250 mls @ 3,000 mls/hr IV PRN PRN PRN Reason: Hypotension during Dialysis Stop: 01/05/19 14:57 Mupirocin (Bactroban Ointment (For Decolonization) -) 1 applic NS BID [facility] Stop: 01/05/19 11:14 Last Admin: 01/04/19 09:55 Dose: 1 applic Rosuvastatin Calcium (Crestor -) 5 mg PO HS JAYCE Last Admin: 01/03/19 22:14 Dose: 5 mg Vital Signs Period Temp Pulse Resp BP Sys/Ascencio Pulse Ox Last 24 Hr 97.5 F-98.6 F 57-79 20-32 96-118/45-84 96-100 Intake & Output 01/01/19 01/02/19 01/03/19 01/04/19 23:59 23:59 23:59 23:59 Intake Total 2475 890 320.3 971 Output Total 500 215 150 225 Balance 1975 675 170.3 746 Weight 93.894 kg 95.9 kg GEN: Pleasant elderly man in bed, CA+OX3, conversant, mild SOB HEENT: PERRL, an-icteric, MMM PULM: Tachypnic, Rales B/L ~ 1/4 CV: nml S1 S2 Irreg Irreg, Grade 2/6 SM ABD: + BS, S/S N/T N/D X4Q, scrotal edema EXT: + pulses, WWP X4, anasarca CBC, BMP 01/04/19 Unknown 01/04/19 05:30 INR, PTT INR 1.93 (0.83-1.09) H 01/03/19 05:30 Microbiology 12/31/18 12:00 Urine - Urine Lester Urine Culture - Final Enterococcus Faecalis RECENT STUDIES TO NOTE: CXR 01/04: A single AP view of the chest reveals a large heart, sclerotic, sternal sutures and clips, congestive changes with bilateral effusions and some basilar atelectasis or infiltrates. There is old left rib trauma and a fracture of the left clavicle. Correlation recommended. TTE 12/31: Normal LV size and function/LVEF 60%, mod dilated RV with mild decreased RV function, mild-mod AUTUMN, mild MR, mod TR with RVSP 31 mmHg ASSESS: -HF -RESP FAIL -COPD -RENAL FAIL -A-FIB -HL -UTI PLAN: -Supp FiO2 for an SpO2 > 92% -Nebs -CPT -IS -Nocturnal Bi-Level -Finish Abx for UTI -CONT Heparin gtt -CARDS -D/c Lasix gtt -Place HD Cath -HD (V/O) -RENAL DGL, ACNP-[facility] ICU PULM/CCM 4436 Critical Care Total Critical Care Time (in minutes): 36 Critical Care Statement: The care of this patient involved high complexity decision making to prevent further life threatening deterioration of the patient 's condition and/or to evaluate & treat vital organ system(s) failure or risk of failure.
[2019-01-04] MEDS: CEFTRIAXONE 1 GM in DEXTROSE 5%-WATER - 50 ML IVPB SCH (09:54)
[2019-01-04] MEDS: MUPIROCIN 2% TOPICAL OINTMENT FOR DECOLONIZATION NS SCH ×2 (09:55→22:32)
[2019-01-04] MEDS: ARTIFICIAL TEARS (POLYVINYL ALCOHOL) OPTH DROPS OU PRN (09:55)
--- NOTE | 2019-01-04 10:22 | PN ---
Progress Note, Physician Chief Complaint: Mr Aleman says he is feeling fine and is without complaint. No cp, sob, n/v. - Current Medication List Current Medications: Active Medications Albuterol Sulfate (Ventolin 0.083% Nebulizer Soln -) 1 amp NEB Q6H PRN PRN Reason: SHORT OF BREATH/WHEEZING Last Admin: 01/03/19 14:28 Dose: 1 amp Albuterol/Ipratropium (Duoneb -) 1 amp NEB RQID JAYCE Last Admin: 01/04/19 07:30 Dose: 1 amp Artificial Tears (Artificial Tears) 1 drop OU TID PRN PRN Reason: DRY EYES Last Admin: 01/04/19 09:55 Dose: 1 drop Chlorhexidine Gluconate (Hibiclens For Decolonization -) 1 applic TP HS JAYCE Last Admin: 01/03/19 22:16 Dose: 1 applic Heparin Sodium (Porcine) (Heparin -) 1,000 unit IVPUSH PRN PRN PRN Reason: Heparin Heparin Sodium (Porcine) (Heparin -) 5,000 unit IVPUSH PRN PRN PRN Reason: Heparin Norepinephrine Bitartrate 4, (000 mcg/ Dextrose) 500 mls @ 37.5 mls/hr IV TITR JAYCE; Protocol Last Admin: 01/03/19 14:45 Dose: Not Given Ceftriaxone Sodium 1 gm/ (Dextrose) 50 mls @ 100 mls/hr IVPB DAILY JAYCE Last Admin: 01/04/19 09:54 Dose: 100 mls/hr Heparin Sodium/Dextrose (Heparin Infusion -) 25,000 units in 500 mls @ 20 mls/ hr IV TITR JAYCE; Protocol Last Titration: 01/04/19 09:50 Dose: 900 units/hr, 18 mls/hr Furosemide 100 mg/ Sodium (Chloride) 50 mls @ 7.5 mls/hr IVPB TITR JAYCE; Protocol Last Admin: 01/04/19 08:00 Dose: 15 mg/hr, 7.5 mls/hr Mupirocin (Bactroban Ointment (For Decolonization) -) 1 applic NS BID JAYCE Stop: 01/05/19 11:14 Last Admin: 01/04/19 09:55 Dose: 1 applic Rosuvastatin Calcium (Crestor -) 5 mg PO HS JAYCE Last Admin: 01/03/19 22:14 Dose: 5 mg - Objective Vital Signs: Vital Signs Temperature 36.5 C 01/04/19 08:00 Pulse Rate 68 01/04/19 08:00 Respiratory Rate 25 H 01/04/19 09:00 Blood Pressure 110/48 L 01/04/19 08:00 O2 Sat by Pulse Oximetry (%) 99 01/04/19 09:00 Constitutional: Yes: Well Nourished, No Distress, Calm Cardiovascular: Yes: Pulse Irregular, Murmur. No: Tachycardia, Gallop, Rub Respiratory: Yes: Regular, On Nasal O2, Rhonchi. No: CTA Bilaterally, Rales, Wheezes Gastrointestinal: Yes: Normal Bowel Sounds, Soft. No: Distention, Tenderness Extremities: Yes: WNL Edema: Yes Edema: LLE: 2+, RLE: 2+ Labs: CBC, BMP 01/03/19 05:30 01/04/19 05:30 INR, PTT INR 1.93 (0.83-1.09) H 01/03/19 05:30 Problem List - Problems (1) Acute on chronic diastolic (congestive) heart failure Code(s): I50.33 - ACUTE ON CHRONIC DIASTOLIC (CONGESTIVE) HEART FAILURE (2) Wfque-ed-gjmuumj kidney injury Code(s): N17.9 - ACUTE KIDNEY FAILURE, UNSPECIFIED; N18.9 - CHRONIC KIDNEY DISEASE, UNSPECIFIED Qualifiers: Acute renal failure type: unspecified Chronic kidney disease stage: unspecified stage Qualified Code(s): N17.9 - Acute kidney failure, unspecified ; N18.9 - Chronic kidney disease, unspecified (3) Warfarin toxicity Code(s): T45.511A - POISONING BY ANTICOAGULANTS, ACCIDENTAL, INIT (4) CAD (coronary artery disease) Code(s): I25.10 - ATHSCL HEART DISEASE OF [place] CORONARY ARTERY W/O ANG PCTRS Qualifiers: Coronary Disease-Associated Artery/Lesion type: [place] artery [place] vs. transplanted heart: [place] heart Associated angina: without angina Qualified Code(s): I25.10 - Atherosclerotic heart disease of [place] coronary artery without angina pectoris (5) COPD (chronic obstructive pulmonary disease) Code(s): J44.9 - CHRONIC OBSTRUCTIVE PULMONARY DISEASE, UNSPECIFIED Qualifiers: COPD type: unspecified COPD Qualified Code(s): J44.9 - Chronic obstructive pulmonary disease, unspecified (6) Chronic anemia Code(s): D64.9 - ANEMIA, UNSPECIFIED (7) HTN (hypertension) Code(s): I10 - ESSENTIAL (PRIMARY) HYPERTENSION Qualifiers: Hypertension type: essential hypertension Qualified Code(s): I10 - Essential (primary) hypertension (8) Pulmonary hypertension Code(s): I27.2 - OTHER SECONDARY PULMONARY HYPERTENSION * DO NOT USE * (9) Atrial fibrillation Code(s): I48.91 - UNSPECIFIED ATRIAL FIBRILLATION Qualifiers: Atrial fibrillation type: permanent Qualified Code(s): I48.2 - Chronic atrial fibrillation (10) Hyperlipidemia Code(s): E78.5 - HYPERLIPIDEMIA, UNSPECIFIED Qualifiers: Hyperlipidemia type: pure hypercholesterolemia Qualified Code(s): E78.00 - Pure hypercholesterolemia, unspecified; E78.0 - Pure hypercholesterolemia Assessment/Plan (1) Acute on chronic diastolic (congestive) heart failure Assessment/Plan: -case d/w cardiology -off pressors -on lasix gtt -planning for HD Code(s): I50.33 - ACUTE ON CHRONIC DIASTOLIC (CONGESTIVE) HEART FAILURE (2) Flxlz-zo-jevalxs kidney injury Assessment/Plan: -Dr Montgomery following -planning for HD Code(s): N17.9 - ACUTE KIDNEY FAILURE, UNSPECIFIED; N18.9 - CHRONIC KIDNEY DISEASE, UNSPECIFIED Qualifiers: Acute renal failure type: unspecified Chronic kidney disease stage: unspecified stage Qualified Code(s): N17.9 - Acute kidney failure, unspecified ; N18.9 - Chronic kidney disease, unspecified (3) Warfarin toxicity Assessment/Plan: -on heparin gtt currently Code(s): T45.511A - POISONING BY ANTICOAGULANTS, ACCIDENTAL, INIT (4) CAD (coronary artery disease) Assessment/Plan: -quiescent -cardiology following Code(s): I25.10 - ATHSCL HEART DISEASE OF [place] CORONARY ARTERY W/O ANG PCTRS Qualifiers: Coronary Disease-Associated Artery/Lesion type: [place] artery [place] vs. transplanted heart: [place] heart Associated angina: without angina Qualified Code(s): I25.10 - Atherosclerotic heart disease of [place] coronary artery without angina pectoris (5) COPD (chronic obstructive pulmonary disease) Assessment/Plan: -not in exacerbation -pulmonary following Code(s): J44.9 - CHRONIC OBSTRUCTIVE PULMONARY DISEASE, UNSPECIFIED Qualifiers: COPD type: unspecified COPD Qualified Code(s): J44.9 - Chronic obstructive pulmonary disease, unspecified (6) Chronic anemia Assessment/Plan: -monitor -may need transfusion but can currently hold Code(s): D64.9 - ANEMIA, UNSPECIFIED (7) HTN (hypertension) Assessment/Plan: -well controlled Code(s): I10 - ESSENTIAL (PRIMARY) HYPERTENSION Qualifiers: Hypertension type: essential hypertension Qualified Code(s): I10 - Essential (primary) hypertension (8) Pulmonary hypertension Assessment/Plan: -noted Code(s): I27.2 - OTHER SECONDARY PULMONARY HYPERTENSION * DO NOT USE * (9) Atrial fibrillation Assessment/Plan: -currently in sinus -history of bradycardia and planning for pacemaker -anticoagulation with heparin gtt Code(s): I48.91 - UNSPECIFIED ATRIAL FIBRILLATION Qualifiers: Atrial fibrillation type: permanent Qualified Code(s): I48.2 - Chronic atrial fibrillation (10) Hyperlipidemia Assessment/Plan: -crestor Code(s): E78.5 - HYPERLIPIDEMIA, UNSPECIFIED Qualifiers: Hyperlipidemia type: pure hypercholesterolemia Qualified Code(s): E78.00 - Pure hypercholesterolemia, unspecified; E78.0 - Pure hypercholesterolemia
[2019-01-04] MEDS: HEPARIN INFUSION - 25,000 UNITS/500 ML INFUS.BAG IV SCH (12:00)
[2019-01-04] MEDS: NOREPINEPHRINE BITARTRATE 4,000 MCG in DEXTROSE 5%-WATER - 496 ML IV SCH (14:45)
--- NOTE | 2019-01-04 14:57 | PN ---
Progress Note, Physician History of Present Illness: Pt seen and examined at bedside. He remains in the ICU. He still has shortness of breath. He is unable to lay flat. He complains of lower ext edema. He did not respond to the lasix drip. - Current Medication List Current Medications: Active Medications Albuterol Sulfate (Ventolin 0.083% Nebulizer Soln -) 1 amp NEB Q6H PRN PRN Reason: SHORT OF BREATH/WHEEZING Last Admin: 01/03/19 14:28 Dose: 1 amp Albuterol/Ipratropium (Duoneb -) 1 amp NEB RQID JAYCE Last Admin: 01/04/19 12:00 Dose: 1 amp Artificial Tears (Artificial Tears) 1 drop OU TID PRN PRN Reason: DRY EYES Last Admin: 01/04/19 09:55 Dose: 1 drop Chlorhexidine Gluconate (Hibiclens For Decolonization -) 1 applic TP HS JAYCE Last Admin: 01/03/19 22:16 Dose: 1 applic Heparin Sodium (Porcine) (Heparin -) 1,000 unit IVPUSH PRN PRN PRN Reason: Heparin Heparin Sodium (Porcine) (Heparin -) 5,000 unit IVPUSH PRN PRN PRN Reason: Heparin Norepinephrine Bitartrate 4, (000 mcg/ Dextrose) 500 mls @ 37.5 mls/hr IV TITR JAYCE; Protocol Last Admin: 01/03/19 14:45 Dose: Not Given Ceftriaxone Sodium 1 gm/ (Dextrose) 50 mls @ 100 mls/hr IVPB DAILY JAYCE Last Admin: 01/04/19 09:54 Dose: 100 mls/hr Heparin Sodium/Dextrose (Heparin Infusion -) 25,000 units in 500 mls @ 20 mls/ hr IV TITR JAYCE; Protocol Last Admin: 01/04/19 12:00 Dose: 900 units/hr, 18 mls/hr Mupirocin (Bactroban Ointment (For Decolonization) -) 1 applic NS BID JAYCE Stop: 01/05/19 11:14 Last Admin: 01/04/19 09:55 Dose: 1 applic Rosuvastatin Calcium (Crestor -) 5 mg PO HS JAYCE Last Admin: 01/03/19 22:14 Dose: 5 mg - Objective Vital Signs: Vital Signs Temperature 97.6 F 01/04/19 14:00 Pulse Rate 69 01/04/19 14:00 Respiratory Rate 22 H 01/04/19 14:00 Blood Pressure 96/84 01/04/19 14:00 O2 Sat by Pulse Oximetry (%) 99 01/04/19 13:45 Constitutional: Yes: Calm Eyes: Yes: Conjunctiva Clear HENT: Yes: Atraumatic Cardiovascular: Yes: S1, S2 Respiratory: Yes: On Nasal O2, Rhonchi Gastrointestinal: Yes: Soft Genitourinary: Yes: WNL Musculoskeletal: Yes: Muscle Weakness Edema: Yes Edema: LLE: 2+, RLE: 2+ Integumentary: Yes: Venous Stasis Changes Neurological: Yes: Oriented Psychiatric: Yes: Oriented Labs: CBC, BMP 01/04/19 Unknown 01/04/19 05:30 INR, PTT INR 1.93 (0.83-1.09) H 01/03/19 05:30 - ....Imaging Chest X-ray: Report Reviewed Problem List - Problems (1) [id number] kidney injury Code(s): N17.9 - ACUTE KIDNEY FAILURE, UNSPECIFIED; N18.9 - CHRONIC KIDNEY DISEASE, UNSPECIFIED Qualifiers: Acute renal failure type: unspecified Chronic kidney disease stage: unspecified stage Qualified Code(s): N17.9 - Acute kidney failure, unspecified ; N18.9 - Chronic kidney disease, unspecified (2) Congestive heart failure Code(s): I50.9 - HEART FAILURE, UNSPECIFIED Qualifiers: Heart failure type: unspecified Heart failure chronicity: acute on chronic Qualified Code(s): I50.9 - Heart failure, unspecified Assessment/Plan Current Medications Generic Name Dose Route Start Last Admin Trade Name Freq PRN Reason Stop Dose Admin Albuterol Sulfate 1 amp 01/02/19 20:36 01/03/19 14:28 Ventolin 0.083% Nebulizer Soln - NEB 1 amp Q6H PRN Administration SHORT OF BREATH/WHEEZING Albuterol/Ipratropium 1 amp 01/03/19 08:00 01/04/19 12:00 Duoneb - NEB 1 amp RQID JAYCE Administration Artificial Tears 1 drop 01/02/19 14:09 01/04/19 09:55 Artificial Tears OU 1 drop TID PRN Administration DRY EYES Chlorhexidine Gluconate 1 applic 12/31/18 22:00 01/03/19 22:16 Hibiclens For Decolonization - TP 1 applic HS JAYCE Administration Heparin Sodium (Porcine) 1,000 unit 01/03/19 11:54 Heparin - IVPUSH PRN PRN Heparin Heparin Sodium (Porcine) 5,000 unit 01/03/19 11:54 Heparin - IVPUSH PRN PRN Heparin Norepinephrine Bitartrate 4, 500 mls @ 37.5 mls/hr 12/31/18 14:45 01/03/19 14 :45 000 mcg/ Dextrose IV Not Given TITR JAYCE Protocol 5 MCG/MIN Ceftriaxone Sodium 1 gm/ 50 mls @ 100 mls/hr 01/01/19 10:00 01/04/19 09:54 Dextrose IVPB 100 mls/hr DAILY JAYCE Administration Heparin Sodium/Dextrose 25,000 units in 500 mls @ 20 mls/hr 01/03/19 12:00 12:00 Heparin Infusion - IV 900 units/hr TITR JAYCE 18 mls/hr Administration Protocol 1,000 UNITS/HR Mupirocin 1 applic 12/31/18 11:15 01/04/19 09:55 Bactroban Ointment (For Decolonization) - NS 01/05/19 11:14 1 applic BID JAYCE Administration Rosuvastatin Calcium 5 mg 01/02/19 22:00 01/03/19 22:14 Crestor - PO 5 mg HS JAYCE Administration Laboratory Tests 01/02/19 01/02/19 05:30 05:30 [facility] Not observed MONCHO Screen Negative Proteinase 3 (PR3) Pending p-ANCA Pending Double Strand DNA Ab <1 Glomerular Base Memb Ab Pending Impression 1. ANGELA 2. CKD 3. CHF 4. hypotension 5. resp failure requiring bipap 6. a-fib 7. hld 8. bilateral pleural effusions Plan - pt failed diuretic therapy and is not making much urine - will start HD today to UF volume - pt likely has ATN at this point - explained risk and benefit of HD at length to pt and his . They understand and agree. - discussed with ICU team - discussed with medical attending - monitor pulse ox - avoid nsaids - avoid hypotensive episodes if possible
[2019-01-04] MEDS ORDERED: LIDOCAINE HCL 1%, 10 MG/ML (50 mL VIAL) SQ ONE (16:07)
[2019-01-04] MEDS ORDERED: LIDOCAINE HCL 1%, 10 MG/ML (20ML VIAL) ONE (16:17)
--- NOTE | 2019-01-04 17:25 | PROC ---
Procedure Note Procedure: EBL < 10cc. Pt tolerated the procedure well. Central Line Insertion Indication: Other (HD) Risks and Benefits Explained: Yes Consent on Chart: Yes Central Line: Dialysis Cath, Dual Lumen Anesthesia: 1% Lidocaine Sterile Technique: Yes Ultrasound Guided Assistance: Yes Position: Right Femoral Sterile Dressing Applied: Yes Remarks: Catheter inserted on first attempt under US guidance.
[2019-01-04] MEDS ORDERED: SODIUM CHLORIDE 250 ML IV PRN (21:13)
[2019-01-04] MEDS: ALBUMIN HUMAN 25% 12.5 GM/50 ML VIAL IVPB SCH ×4 (21:15→22:45)
[2019-01-04] MEDS: CHLORHEXIDINE GLUCONATE 4% CLEANSER FOR DECOLONIZATION TP SCH (22:32)
[2019-01-04] MEDS: ROSUVASTATIN CA 5 MG TABLET (FP) PO SCH (23:07)
[2019-01-05] MEDS: ALBUTEROL SO4 0.083% IH SOL 2.5 MG/3 ML VIAL.NEB. NEB PRN (00:15)
[2019-01-05 06:44] LABS: ANION GAP 10 MMOL/L (8-16); BLOOD UREA NITROGEN 63 mg/dL (7-18); CALCIUM 7.5 mg/dL (8.5-10.1); CHLORIDE 96 mmol/L (98-107); CO2 25 mmol/L (21-32); CREATININE 4.3 mg/dL (0.55-1.3); GLUCOSE,RANDOM 89 mg/dL (74-106); MAGNESIUM 2.3 mg/dL (1.8-2.4); PHOSPHOROUS 6.8 mg/dL (2.5-4.9); POTASSIUM 3.9 mmol/L (3.5-5.1); SODIUM 132 mmol/L (136-145)
[2019-01-05] MEDS: ALBUTEROL SO4 2.5/IPRATROPIUM 0.5 INH SOL 3 ML VIAL.NEB. NEB SCH ×4 (07:25→20:29)
--- NOTE | 2019-01-05 09:11 | PN ---
Progress Note (short form) - Note Progress Note: PULM/CCM Pt seen and examined in the ICU. More awake & interactive, mild SOB in semi ramsey's. Vasc-Cath placed yesterday & HD for 2.5L Out. Active Medications Albuterol/Ipratropium (Duoneb -) 1 amp NEB RQID JAYCE Last Admin: 01/05/19 11:29 Dose: 1 amp Artificial Tears (Artificial Tears) 1 drop OU TID PRN PRN Reason: DRY EYES Last Admin: 01/04/19 09:55 Dose: 1 drop Chlorhexidine Gluconate (Hibiclens For Decolonization -) 1 applic TP HS JAYCE Last Admin: 01/04/19 22:32 Dose: 1 applic Heparin Sodium (Porcine) (Heparin -) 1,000 unit IVPUSH PRN PRN PRN Reason: Heparin Heparin Sodium (Porcine) (Heparin -) 5,000 unit IVPUSH PRN PRN PRN Reason: Heparin Norepinephrine Bitartrate 4, (000 mcg/ Dextrose) 500 mls @ 37.5 mls/hr IV TITR JAYCE; Protocol Last Admin: 01/04/19 14:45 Dose: Not Given Ceftriaxone Sodium 1 gm/ (Dextrose) 50 mls @ 100 mls/hr IVPB DAILY JAYCE Last Admin: 01/05/19 10:19 Dose: 100 mls/hr Heparin Sodium/Dextrose (Heparin Infusion -) 25,000 units in 500 mls @ 20 mls/ hr IV TITR JAYCE; Protocol Last Admin: 01/04/19 12:00 Dose: 900 units/hr, 18 mls/hr Sodium Chloride (Normal Saline -) 250 mls @ 3,000 mls/hr IV PRN PRN PRN Reason: Hypotension during Dialysis Stop: 01/05/19 21:12 Rosuvastatin Calcium (Crestor -) 5 mg PO HS JAYCE Last Admin: 01/04/19 23:07 Dose: 5 mg Vital Signs Period Temp Pulse Resp BP Sys/Ascencio Pulse Ox Last 24 Hr 97.4 F-97.9 F 57-71 15-36 91-111/45-79 95-100 Intake & Output 01/02/19 01/03/19 01/04/19 01/05/19 23:59 23:59 23:59 23:59 Intake Total 890 320.3 971 216 Output Total 215 150 225 75 Balance 675 170.3 746 141 Weight 95.9 kg 98 kg GEN: Pleasant elderly man in bed, CA+OX3, conversant, mild SOB HEENT: PERRL, an-icteric, MMM PULM: Tachypnic, Rales B/L ~ 1/4 CV: nml S1 S2 Irreg Irreg, Grade 2/6 SM ABD: + BS, S/S N/T N/D X4Q, scrotal edema EXT: + pulses, WWP X4, anasarca CBC, BMP 01/05/19 13:07 01/05/19 05:30 INR, PTT INR 1.93 (0.83-1.09) H 01/03/19 05:30 Microbiology 12/31/18 12:00 Urine - Urine Lester Urine Culture - Final Enterococcus Faecalis RECENT STUDIES TO NOTE: CXR 01/04: A single AP view of the chest reveals a large heart, sclerotic, sternal sutures and clips, congestive changes with bilateral effusions and some basilar atelectasis or infiltrates. There is old left rib trauma and a fracture of the left clavicle. Correlation recommended. TTE 12/31: Normal LV size and function/LVEF 60%, mod dilated RV with mild decreased RV function, mild-mod AUTUMN, mild MR, mod TR with RVSP 31 mmHg ASSESS: -HF -RESP FAIL -COPD -RENAL FAIL -A-FIB -HL -UTI PLAN: -HOB > 30 (pt is aspirating) -S & S -Supp FiO2 for an SpO2 > 92% -Nebs -CPT -IS -Nocturnal Bi-Level -Finish Abx for UTI -CONT Heparin gtt -CARDS -HD -RENAL DGL, ACNP-BC [facility] ICU PULM/[facility] [id number]
[2019-01-05] MEDS ORDERED: cefTRIAXone SODIUM 1 GM VIAL ONE (10:09)
[2019-01-05] MEDS ORDERED: DEXTROSE 5%-WATER - 50 ML IVPB ONE (10:09)
[2019-01-05] MEDS: CEFTRIAXONE 1 GM in DEXTROSE 5%-WATER - 50 ML IVPB SCH (10:19)
--- NOTE | 2019-01-05 10:26 | PN ---
Progress Note (short form) - Note Progress Note: Chief Complaint: Events noted, notes reviewed, dyspnea persists but improved, lower extremity edema improved, denies any chest pain History of Present Illness: Seen and examined in the ICU. Events noted, notes reviewed, dyspnea persists but improved, lower extremity edema improved, denies any chest pain HD initiated yesterday tolerated session, off of Lasix drip Chest x-ray pending from today Echocardiography 12/31/2018 Normal LV size and function/LVEF 60%, mod dilated RV with mild decreased RV function, mild-mod AUTUMN, mild MR, mod TR with RVSP 31 mmHg - Current Medication List Current Medications Albuterol Sulfate (Ventolin 0.083% Nebulizer Soln -) 1 amp NEB Q6H PRN PRN Reason: SHORT OF BREATH/WHEEZING Last Admin: 01/05/19 00:15 Dose: 1 amp Albuterol/Ipratropium (Duoneb -) 1 amp NEB RQID JAYCE Last Admin: 01/05/19 07:25 Dose: 1 amp Artificial Tears (Artificial Tears) 1 drop OU TID PRN PRN Reason: DRY EYES Last Admin: 01/04/19 09:55 Dose: 1 drop Chlorhexidine Gluconate (Hibiclens For Decolonization -) 1 applic TP HS JAYCE Last Admin: 01/04/19 22:32 Dose: 1 applic Heparin Sodium (Porcine) (Heparin -) 1,000 unit IVPUSH PRN PRN PRN Reason: Heparin Heparin Sodium (Porcine) (Heparin -) 5,000 unit IVPUSH PRN PRN PRN Reason: Heparin Norepinephrine Bitartrate 4, (000 mcg/ Dextrose) 500 mls @ 37.5 mls/hr IV TITR JAYCE; Protocol Last Admin: 01/04/19 14:45 Dose: Not Given Ceftriaxone Sodium 1 gm/ (Dextrose) 50 mls @ 100 mls/hr IVPB DAILY JAYCE Last Admin: 01/04/19 09:54 Dose: 100 mls/hr Heparin Sodium/Dextrose (Heparin Infusion -) 25,000 units in 500 mls @ 20 mls/ hr IV TITR JAYCE; Protocol Last Admin: 01/04/19 12:00 Dose: 900 units/hr, 18 mls/hr Sodium Chloride (Normal Saline -) 250 mls @ 3,000 mls/hr IV PRN PRN PRN Reason: Hypotension during Dialysis Stop: 01/05/19 21:12 Mupirocin (Bactroban Ointment (For Decolonization) -) 1 applic NS BID [facility] Stop: 01/05/19 11:14 Last Admin: 01/04/19 22:32 Dose: 1 applic Rosuvastatin Calcium (Crestor -) 5 mg PO HS [facility] Last Admin: 01/04/19 23:07 Dose: 5 mg Review of Systems Cardiovascular: As noted above Respiratory: denies: Cough or Sputum Production Gastrointestinal: denies: Nausea, Vomiting, Diarrhea, Constipation or Abdominal Discomfort Musculoskeletal: No Symptoms Reported Endocrine: No Symptoms Reported - Objective Vital Signs: Last Vital Signs Temp Pulse Resp BP Pulse Ox 97.4 F L 65 23 H 111/62 97 01/05/19 06:00 01/05/19 08:37 01/05/19 06:00 01/05/19 06:00 01/05/19 08:37 Intake & Output 01/02/19 01/03/19 01/04/19 01/05/19 23:59 23:59 23:59 23:59 Intake Total 890 320.3 971 216 Output Total 215 150 225 75 Balance 675 170.3 746 141 Weight 211 lb 6.773 oz 216 lb 0.848 oz Neck: Supple Negative JVD No Bruit Cardiovascular: S1 S2 Irregularly Irregular Grade 2/6 SM Respiratory: Diminished Breath Sounds at the Bases Bilaterally Gastrointestinal: Soft Benign Normal Bowel Sounds Ext: 1+ Edema Bilaterally Labs: CBC, BMP 01/04/19 Unknown 01/05/19 05:30 Hepatic Panel Total Bilirubin 0.4 mg/dL (0.2-1) 01/01/19 05:30 AST 31 U/L (15-37) 01/01/19 05:30 ALT 21 U/L (13-61) 01/01/19 05:30 Alkaline Phosphatase 80 U/L (45-117) 01/01/19 05:30 Albumin 2.8 g/dl (3.4-5.0) L 01/01/19 05:30 INR, PTT INR 1.93 (0.83-1.09) H 01/03/19 05:30 Assessment/Plan ASSESSMENT: 1. Clinical presentation is consistent with acute on chronic class II-III NYHA classification LV failure related to diastolic LV dysfunction, clinically improving 2. CAD post CABG/PCI (stent) evidence of demand ischemia angina pectoris 3. Persistent atrial fibrillation [id number] score of 5 on Coumadin therapy, currently on Heparin/bridge 4. Hypertension, hypotension- resolved 5. Hypercholesterolemia 6. MR mild to moderate in severity 7. TR moderate in severity 8. Carotid stenosis, moderate in severity 9. COPD 10. Acute on chronic kidney disease, initiated HD 11. Anemia PLAN: 1. Ideally should be on B-Blockers, hemodynamics permitting 2. Ideally should be on ACEI or ARBS, pending renal function stabilization or HD initiation 3. Continue Crestor 4. Continue A/C with caution in view of the above noted anemia (transfuse to maintain Hg equal or > 8.0) 5. HD as per renal service Celeste Rosales M.D.
[2019-01-05] MEDS: MUPIROCIN 2% TOPICAL OINTMENT FOR DECOLONIZATION NS SCH (11:00)
[2019-01-05] MEDS: HEPARIN INFUSION - 25,000 UNITS/500 ML INFUS.BAG IV SCH (13:00)
[2019-01-05 13:13] LABS: HEMATOCRIT 21.2 % (35.4-49); HEMOGLOBIN 7.4 GM/dL (11.7-16.9); MCH 33.8 pg (25.7-33.7); MCHC 34.8 g/dl (32.0-35.9); MEAN PLT VOLUME 8.5 fl (7.5-11.1); PLATELET COUNT 86 K/MM3 (134-434); RBC 2.18 M/mm3 (4.00-5.60); RDW 16.2 % (11.9-15.9); WHITE BLOOD COUNT 3.7 K/mm3 (4.0-10.0)
[2019-01-05] MEDS ORDERED: ALBUTEROL SO4 0.083% IH SOL 2.5 MG/3 ML VIAL.NEB. NEB STA ×2 (14:59→15:00)
[2019-01-05] MEDS: NOREPINEPHRINE BITARTRATE 4,000 MCG in DEXTROSE 5%-WATER - 496 ML IV SCH (15:54)
[2019-01-05] MEDS ORDERED: SODIUM CHLORIDE 250 ML IV PRN (17:21)
--- NOTE | 2019-01-05 17:21 | PN ---
Progress Note, Physician History of Present Illness: Pt seen and examined at bedside. He feels that his breathing is a little better. He denies chest pain. He tolerated HD last night. - Current Medication List Current Medications: Active Medications Albuterol Sulfate (Ventolin 0.083% Nebulizer Soln -) 1 amp NEB Q6H PRN PRN Reason: SHORT OF BREATH/WHEEZING Last Admin: 01/05/19 00:15 Dose: 1 amp Albuterol/Ipratropium (Duoneb -) 1 amp NEB RQID JAYCE Last Admin: 01/05/19 15:22 Dose: Not Given Artificial Tears (Artificial Tears) 1 drop OU TID PRN PRN Reason: DRY EYES Last Admin: 01/04/19 09:55 Dose: 1 drop Chlorhexidine Gluconate (Hibiclens For Decolonization -) 1 applic TP HS JAYCE Last Admin: 01/04/19 22:32 Dose: 1 applic Heparin Sodium (Porcine) (Heparin -) 1,000 unit IVPUSH PRN PRN PRN Reason: Heparin Heparin Sodium (Porcine) (Heparin -) 5,000 unit IVPUSH PRN PRN PRN Reason: Heparin Norepinephrine Bitartrate 4, (000 mcg/ Dextrose) 500 mls @ 37.5 mls/hr IV TITR JAYCE; Protocol Last Admin: 01/05/19 15:54 Dose: Not Given Ceftriaxone Sodium 1 gm/ (Dextrose) 50 mls @ 100 mls/hr IVPB DAILY JAYCE Last Admin: 01/05/19 10:19 Dose: 100 mls/hr Heparin Sodium/Dextrose (Heparin Infusion -) 25,000 units in 500 mls @ 20 mls/ hr IV TITR JAYCE; Protocol Last Admin: 01/05/19 13:00 Dose: 900 units/hr, 18 mls/hr Sodium Chloride (Normal Saline -) 250 mls @ 3,000 mls/hr IV PRN PRN PRN Reason: Hypotension during Dialysis Stop: 01/05/19 21:12 Rosuvastatin Calcium (Crestor -) 5 mg PO HS JAYCE Last Admin: 01/04/19 23:07 Dose: 5 mg - Objective Vital Signs: Vital Signs Temperature 97.7 F 01/05/19 10:00 Pulse Rate 63 01/05/19 12:00 Respiratory Rate 28 H 01/05/19 12:00 Blood Pressure 105/57 L 01/05/19 12:00 O2 Sat by Pulse Oximetry (%) 95 01/05/19 10:00 Constitutional: Yes: Calm Eyes: Yes: Conjunctiva Clear HENT: Yes: Atraumatic Neck: Yes: Supple Cardiovascular: Yes: S1, S2 Respiratory: Yes: On Nasal O2, Rhonchi Gastrointestinal: Yes: Soft Genitourinary: Yes: WNL Musculoskeletal: Yes: Muscle Weakness Edema: Yes (improved) Edema: LLE: 1+, RLE: 1+ Neurological: Yes: Oriented Psychiatric: Yes: Oriented Labs: CBC, BMP 01/05/19 13:07 01/05/19 05:30 INR, PTT INR 1.93 (0.83-1.09) H 01/03/19 05:30 Problem List - Problems (1) Hojqy-rd-xmcjuux kidney injury Code(s): N17.9 - ACUTE KIDNEY FAILURE, UNSPECIFIED; N18.9 - CHRONIC KIDNEY DISEASE, UNSPECIFIED Qualifiers: Acute renal failure type: unspecified Chronic kidney disease stage: unspecified stage Qualified Code(s): N17.9 - Acute kidney failure, unspecified ; N18.9 - Chronic kidney disease, unspecified (2) Congestive heart failure Code(s): I50.9 - HEART FAILURE, UNSPECIFIED Qualifiers: Heart failure type: unspecified Heart failure chronicity: acute on chronic Qualified Code(s): I50.9 - Heart failure, unspecified Assessment/Plan Current Medications Generic Name Dose Route Start Last Admin Trade Name Freq PRN Reason Stop Dose Admin Albuterol Sulfate 1 amp 01/02/19 20:36 01/05/19 00:15 Ventolin 0.083% Nebulizer Soln - NEB 1 amp Q6H PRN Administration SHORT OF BREATH/WHEEZING Albuterol/Ipratropium 1 amp 01/03/19 08:00 01/05/19 15:22 Duoneb - NEB Not Given RQID JAYCE Artificial Tears 1 drop 01/02/19 14:09 01/04/19 09:55 Artificial Tears OU 1 drop TID PRN Administration DRY EYES Chlorhexidine Gluconate 1 applic 12/31/18 22:00 01/04/19 22:32 Hibiclens For Decolonization - TP 1 applic HS JAYCE Administration Heparin Sodium (Porcine) 1,000 unit 01/03/19 11:54 Heparin - IVPUSH PRN PRN Heparin Heparin Sodium (Porcine) 5,000 unit 01/03/19 11:54 Heparin - IVPUSH PRN PRN Heparin Norepinephrine Bitartrate 4, 500 mls @ 37.5 mls/hr 12/31/18 14:45 01/05/19 15 :54 000 mcg/ Dextrose IV Not Given TITR JAYCE Protocol 5 MCG/MIN Ceftriaxone Sodium 1 gm/ 50 mls @ 100 mls/hr 01/01/19 10:00 01/05/19 10:19 Dextrose IVPB 100 mls/hr DAILY JAYCE Administration Heparin Sodium/Dextrose 25,000 units in 500 mls @ 20 mls/hr 01/03/19 12:00 13:00 Heparin Infusion - IV 900 units/hr TITR JAYCE 18 mls/hr Administration Protocol 1,000 UNITS/HR Sodium Chloride 250 mls @ 3,000 mls/hr 01/04/19 21:13 Normal Saline - IV 01/05/19 21:12 PRN PRN Hypotension during Dialysis Rosuvastatin Calcium 5 mg 01/02/19 22:00 01/04/19 23:07 Crestor - PO 5 mg HS JAYCE Administration Impression 1. ANGELA 2. CKD 3. CHF 4. hypotension 5. resp failure requiring bipap 6. a-fib 7. hld 8. bilateral pleural effusions Plan - pt tolerated HD last night - will arrange for HD again tomorrow with UF - monitor lytes - pt failed diuretic therapy and is not making much urine - pt likely has ATN - discussed with ICU team - monitor pulse ox - avoid nsaids - avoid hypotensive episodes if possible - am cxr
--- NOTE | 2019-01-05 17:38 | PN ---
Progress Note, Physician Chief Complaint: Mr Aleman says he is not feeling well today. Says he is feeling very weak and tired. Also with shortness of breath. No cp or n/v. - Current Medication List Current Medications: Active Medications Albuterol Sulfate (Ventolin 0.083% Nebulizer Soln -) 1 amp NEB Q6H PRN PRN Reason: SHORT OF BREATH/WHEEZING Last Admin: 01/05/19 00:15 Dose: 1 amp Albuterol/Ipratropium (Duoneb -) 1 amp NEB RQID JAYCE Last Admin: 01/05/19 15:22 Dose: Not Given Artificial Tears (Artificial Tears) 1 drop OU TID PRN PRN Reason: DRY EYES Last Admin: 01/04/19 09:55 Dose: 1 drop Chlorhexidine Gluconate (Hibiclens For Decolonization -) 1 applic TP HS JAYCE Last Admin: 01/04/19 22:32 Dose: 1 applic Heparin Sodium (Porcine) (Heparin -) 1,000 unit IVPUSH PRN PRN PRN Reason: Heparin Heparin Sodium (Porcine) (Heparin -) 5,000 unit IVPUSH PRN PRN PRN Reason: Heparin Norepinephrine Bitartrate 4, (000 mcg/ Dextrose) 500 mls @ 37.5 mls/hr IV TITR JAYCE; Protocol Last Admin: 01/05/19 15:54 Dose: Not Given Ceftriaxone Sodium 1 gm/ (Dextrose) 50 mls @ 100 mls/hr IVPB DAILY JAYCE Last Admin: 01/05/19 10:19 Dose: 100 mls/hr Heparin Sodium/Dextrose (Heparin Infusion -) 25,000 units in 500 mls @ 20 mls/ hr IV TITR JAYCE; Protocol Last Admin: 01/05/19 13:00 Dose: 900 units/hr, 18 mls/hr Sodium Chloride (Normal Saline -) 250 mls @ 3,000 mls/hr IV PRN PRN PRN Reason: Hypotension during Dialysis Stop: 01/05/19 21:12 Sodium Chloride (Normal Saline -) 250 mls @ 3,000 mls/hr IV PRN PRN PRN Reason: Hypotension during Dialysis Stop: 01/06/19 17:21 Rosuvastatin Calcium (Crestor -) 5 mg PO HS JAYCE Last Admin: 01/04/19 23:07 Dose: 5 mg - Objective Vital Signs: Vital Signs Temperature 36.5 C 01/05/19 10:00 Pulse Rate 63 01/05/19 12:00 Respiratory Rate 28 H 01/05/19 12:00 Blood Pressure 105/57 L 01/05/19 12:00 O2 Sat by Pulse Oximetry (%) 95 01/05/19 10:00 Constitutional: Yes: Well Nourished, No Distress, Calm Cardiovascular: Yes: Regular Rate and Rhythm. No: Gallop, Murmur, Rub Respiratory: Yes: Regular, On Nasal O2, Rhonchi. No: CTA Bilaterally, Rales, Wheezes Gastrointestinal: Yes: Normal Bowel Sounds, Soft. No: Distention, Tenderness Extremities: Yes: WNL Edema: Yes Edema: LLE: 2+, RLE: 2+ Labs: CBC, BMP 01/05/19 13:07 01/05/19 05:30 INR, PTT INR 1.93 (0.83-1.09) H 01/03/19 05:30 Problem List - Problems (1) Acute on chronic diastolic (congestive) heart failure Code(s): I50.33 - ACUTE ON CHRONIC DIASTOLIC (CONGESTIVE) HEART FAILURE (2) Kdibi-mg-xqioelu kidney injury Code(s): N17.9 - ACUTE KIDNEY FAILURE, UNSPECIFIED; N18.9 - CHRONIC KIDNEY DISEASE, UNSPECIFIED Qualifiers: Acute renal failure type: unspecified Chronic kidney disease stage: unspecified stage Qualified Code(s): N17.9 - Acute kidney failure, unspecified ; N18.9 - Chronic kidney disease, unspecified (3) Warfarin toxicity Code(s): T45.511A - POISONING BY ANTICOAGULANTS, ACCIDENTAL, INIT (4) CAD (coronary artery disease) Code(s): I25.10 - ATHSCL HEART DISEASE OF [place] CORONARY ARTERY W/O ANG PCTRS Qualifiers: Coronary Disease-Associated Artery/Lesion type: [place] artery [place] vs. transplanted heart: [place] heart Associated angina: without angina Qualified Code(s): I25.10 - Atherosclerotic heart disease of [place] coronary artery without angina pectoris (5) COPD (chronic obstructive pulmonary disease) Code(s): J44.9 - CHRONIC OBSTRUCTIVE PULMONARY DISEASE, UNSPECIFIED Qualifiers: COPD type: unspecified COPD Qualified Code(s): J44.9 - Chronic obstructive pulmonary disease, unspecified (6) Chronic anemia Code(s): D64.9 - ANEMIA, UNSPECIFIED (7) HTN (hypertension) Code(s): I10 - ESSENTIAL (PRIMARY) HYPERTENSION Qualifiers: Hypertension type: essential hypertension Qualified Code(s): I10 - Essential (primary) hypertension (8) Pulmonary hypertension Code(s): I27.2 - OTHER SECONDARY PULMONARY HYPERTENSION * DO NOT USE * (9) Atrial fibrillation Code(s): I48.91 - UNSPECIFIED ATRIAL FIBRILLATION Qualifiers: Atrial fibrillation type: permanent Qualified Code(s): I48.2 - Chronic atrial fibrillation (10) Hyperlipidemia Code(s): E78.5 - HYPERLIPIDEMIA, UNSPECIFIED Qualifiers: Hyperlipidemia type: pure hypercholesterolemia Qualified Code(s): E78.00 - Pure hypercholesterolemia, unspecified; E78.0 - Pure hypercholesterolemia Assessment/Plan (1) Acute on chronic diastolic (congestive) heart failure Assessment/Plan: -s/p HD -continue per nephrology -remove fluid with HD Code(s): I50.33 - ACUTE ON CHRONIC DIASTOLIC (CONGESTIVE) HEART FAILURE (2) Gooei-ry-mmvbiie kidney injury Assessment/Plan: -s/p HD as above -further HD per Dr Montgomery Code(s): N17.9 - ACUTE KIDNEY FAILURE, UNSPECIFIED; N18.9 - CHRONIC KIDNEY DISEASE, UNSPECIFIED Qualifiers: Acute renal failure type: unspecified Chronic kidney disease stage: unspecified stage Qualified Code(s): N17.9 - Acute kidney failure, unspecified ; N18.9 - Chronic kidney disease, unspecified (3) Warfarin toxicity Assessment/Plan: -on heparin gtt currently Code(s): T45.511A - POISONING BY ANTICOAGULANTS, ACCIDENTAL, INIT (4) CAD (coronary artery disease) Assessment/Plan: -quiescent -cardiology following Code(s): I25.10 - ATHSCL HEART DISEASE OF [place] CORONARY ARTERY W/O ANG PCTRS Qualifiers: Coronary Disease-Associated Artery/Lesion type: [place] artery [place] vs. transplanted heart: [place] heart Associated angina: without angina Qualified Code(s): I25.10 - Atherosclerotic heart disease of [place] coronary artery without angina pectoris (5) COPD (chronic obstructive pulmonary disease) Assessment/Plan: -not in exacerbation -pulmonary following Code(s): J44.9 - CHRONIC OBSTRUCTIVE PULMONARY DISEASE, UNSPECIFIED Qualifiers: COPD type: unspecified COPD Qualified Code(s): J44.9 - Chronic obstructive pulmonary disease, unspecified (6) Chronic anemia Assessment/Plan: -monitor -may need transfusion but can currently hold Code(s): D64.9 - ANEMIA, UNSPECIFIED (7) HTN (hypertension) Assessment/Plan: -well controlled Code(s): I10 - ESSENTIAL (PRIMARY) HYPERTENSION Qualifiers: Hypertension type: essential hypertension Qualified Code(s): I10 - Essential (primary) hypertension (8) Pulmonary hypertension Assessment/Plan: -noted Code(s): I27.2 - OTHER SECONDARY PULMONARY HYPERTENSION * DO NOT USE * (9) Atrial fibrillation Assessment/Plan: -currently in sinus -history of bradycardia and planning for pacemaker -anticoagulation with heparin gtt Code(s): I48.91 - UNSPECIFIED ATRIAL FIBRILLATION Qualifiers: Atrial fibrillation type: permanent Qualified Code(s): I48.2 - Chronic atrial fibrillation (10) Hyperlipidemia Assessment/Plan: -crestor Code(s): E78.5 - HYPERLIPIDEMIA, UNSPECIFIED Qualifiers: Hyperlipidemia type: pure hypercholesterolemia Qualified Code(s): E78.00 - Pure hypercholesterolemia, unspecified; E78.0 - Pure hypercholesterolemia (11) UTI -urine growing enterococcus -? if colonization vs infection -currently on rocephin -will consider ID consult in am
[2019-01-05] MEDS: CHLORHEXIDINE GLUCONATE 4% CLEANSER FOR DECOLONIZATION TP SCH (21:30)
[2019-01-05] MEDS: ROSUVASTATIN CA 5 MG TABLET (FP) PO SCH (21:30)
[2019-01-06] MEDS: ALBUTEROL SO4 0.083% IH SOL 2.5 MG/3 ML VIAL.NEB. NEB PRN ×2 (05:37→06:28)
[2019-01-06 06:37] LABS: BASO % 1.1 % (0-2.0); EOS % 2.2 % (0-4.5); HEMATOCRIT 20.9 % (35.4-49); HEMOGLOBIN 7.3 GM/dL (11.7-16.9); MCH 33.8 pg (25.7-33.7); MCHC 35.1 g/dl (32.0-35.9); MEAN CELL VOLUME 96.4 fl (80-96); MEAN PLT VOLUME 8.2 fl (7.5-11.1); MONO % 15.8 % (3.8-10.2); NEUT % 67.9 % (42.8-82.8); PLATELET COUNT 93 K/MM3 (134-434); RBC 2.17 M/mm3 (4.00-5.60); RDW 16.4 % (11.9-15.9); WHITE BLOOD COUNT 3.8 K/mm3 (4.0-10.0)
[2019-01-06 07:16] LABS: ANION GAP 13 MMOL/L (8-16); BLOOD UREA NITROGEN 71 mg/dL (7-18); CALCIUM 7.4 mg/dL (8.5-10.1); CHLORIDE 96 mmol/L (98-107); CO2 24 mmol/L (21-32); CREATININE 5.2 mg/dL (0.55-1.3); GLUCOSE,RANDOM 94 mg/dL (74-106); MAGNESIUM 2.2 mg/dL (1.8-2.4); PHOSPHOROUS 7.9 mg/dL (2.5-4.9); POTASSIUM 3.7 mmol/L (3.5-5.1); SODIUM 132 mmol/L (136-145)
[2019-01-06] MEDS: ALBUTEROL SO4 2.5/IPRATROPIUM 0.5 INH SOL 3 ML VIAL.NEB. NEB SCH ×4 (07:30→21:30)
[2019-01-06] MEDS ORDERED: cefTRIAXone SODIUM 1 GM VIAL ONE (09:02)
[2019-01-06] MEDS ORDERED: DEXTROSE 5%-WATER - 50 ML IVPB ONE (09:03)
[2019-01-06] MEDS: POTASSIUM CHLORIDE ORAL LIQUID 20 MEQ/15 ML PO ONE ×2 (09:05→09:46)
[2019-01-06] MEDS: CEFTRIAXONE 1 GM in DEXTROSE 5%-WATER - 50 ML IVPB SCH (09:09)
--- NOTE | 2019-01-06 09:50 | PN ---
Progress Note (short form) - Note Progress Note: Dr. Shaw to document today. ? Risk of aspiration on potassium Rx. Held. Consulted Carole Aveyr. Will probably need dialysis again today and blood transfusion.
--- NOTE | 2019-01-06 10:53 | PN ---
Progress Note, Physician Chief Complaint: Events noted Being dialyzed History of Present Illness: Patient was seen and examined in ICU. Awake. Chart was reviewed - Current Medication List Current Medications: Active Medications Albuterol Sulfate (Ventolin 0.083% Nebulizer Soln -) 1 amp NEB Q6H PRN PRN Reason: SHORT OF BREATH/WHEEZING Last Admin: 01/06/19 06:28 Dose: 1 amp Albuterol/Ipratropium (Duoneb -) 1 amp NEB RQID JAYCE Last Admin: 01/06/19 07:30 Dose: 1 amp Artificial Tears (Artificial Tears) 1 drop OU TID PRN PRN Reason: DRY EYES Last Admin: 01/04/19 09:55 Dose: 1 drop Chlorhexidine Gluconate (Hibiclens For Decolonization -) 1 applic TP HS [facility] Last Admin: 01/05/19 21:30 Dose: 1 applic Heparin Sodium (Porcine) (Heparin -) 1,000 unit IVPUSH PRN PRN PRN Reason: Heparin Heparin Sodium (Porcine) (Heparin -) 5,000 unit IVPUSH PRN PRN PRN Reason: Heparin Ceftriaxone Sodium 1 gm/ (Dextrose) 50 mls @ 100 mls/hr IVPB DAILY JAYCE Last Admin: 01/06/19 09:09 Dose: 100 mls/hr Heparin Sodium/Dextrose (Heparin Infusion -) 25,000 units in 500 mls @ 20 mls/ hr IV TITR JAYCE; Protocol Last Admin: 01/05/19 13:00 Dose: 900 units/hr, 18 mls/hr Sodium Chloride (Normal Saline -) 250 mls @ 3,000 mls/hr IV PRN PRN PRN Reason: Hypotension during Dialysis Stop: 01/06/19 17:21 Rosuvastatin Calcium (Crestor -) 5 mg PO HS JAYCE Last Admin: 01/05/19 21:30 Dose: 5 mg - Objective Vital Signs: Vital Signs Temperature 98.4 F 01/06/19 06:00 Pulse Rate 77 01/06/19 10:40 Respiratory Rate 18 01/06/19 10:40 Blood Pressure 111/48 L 01/06/19 10:40 O2 Sat by Pulse Oximetry (%) 100 01/06/19 10:37 Neck: Yes: Supple Cardiovascular: Yes: Pulse Irregular, Murmur (SM), S1, S2 Respiratory: Yes: Diminished Gastrointestinal: Yes: Normal Bowel Sounds, Soft. No: Tenderness Edema: Yes Additional Findings/Remarks: - Review of Systems Constitutional: denies: Chills, Fever Cardiovascular: reports: Shortness of Breath. denies: Chest Pain, Palpitations Respiratory: reports: Orthopnea, SOB, SOB on Exertion. denies: Cough, Hemoptysis, PND Gastrointestinal: denies: Abdominal Pain, Constipation, Diarrhea, Melena, Nausea , Rectal Bleeding, Vomiting Neurological: denies: Dizziness, Headache, Seizure, Syncope Labs: CBC, BMP 01/06/19 05:30 01/06/19 05:30 Problem List - Problems (1) Pdtva-ql-qajxovz kidney injury Code(s): N17.9 - ACUTE KIDNEY FAILURE, UNSPECIFIED; N18.9 - CHRONIC KIDNEY DISEASE, UNSPECIFIED Qualifiers: Acute renal failure type: unspecified Chronic kidney disease stage: unspecified stage Qualified Code(s): N17.9 - Acute kidney failure, unspecified ; N18.9 - Chronic kidney disease, unspecified (2) Acute on chronic diastolic (congestive) heart failure Code(s): I50.33 - ACUTE ON CHRONIC DIASTOLIC (CONGESTIVE) HEART FAILURE (3) CAD (coronary artery disease) Code(s): I25.10 - ATHSCL HEART DISEASE OF [place] CORONARY ARTERY W/O ANG PCTRS Qualifiers: Coronary Disease-Associated Artery/Lesion type: [place] artery [place] vs. transplanted heart: [place] heart Associated angina: without angina Qualified Code(s): I25.10 - Atherosclerotic heart disease of [place] coronary artery without angina pectoris (4) COPD (chronic obstructive pulmonary disease) Code(s): J44.9 - CHRONIC OBSTRUCTIVE PULMONARY DISEASE, UNSPECIFIED Qualifiers: COPD type: unspecified COPD Qualified Code(s): J44.9 - Chronic obstructive pulmonary disease, unspecified (5) Chronic anemia Code(s): D64.9 - ANEMIA, UNSPECIFIED (6) HTN (hypertension) Code(s): I10 - ESSENTIAL (PRIMARY) HYPERTENSION Qualifiers: Hypertension type: essential hypertension Qualified Code(s): I10 - Essential (primary) hypertension (7) Hx of CABG Code(s): Z95.1 - PRESENCE OF AORTOCORONARY BYPASS GRAFT (8) Mitral regurgitation Code(s): I34.0 - NONRHEUMATIC MITRAL (VALVE) INSUFFICIENCY Qualifiers: Cardiac valve disease etiology: nonrheumatic Qualified Code(s): I34.0 - Nonrheumatic mitral (valve) insufficiency Assessment/Plan 1. Clinical presentation is consistent with acute on chronic class II-III NYHA classification LV failure related to diastolic LV dysfunction 2. CAD post CABG/PCI (stent) evidence of demand ischemia angina pectoris 3. Persistent atrial fibrillation [id number] score of 5 on Coumadin therapy 4. Hypertension 5. Hypercholesterolemia 6. MR mild to moderate in severity 7. TR moderate in severity 8. Carotid stenosis, moderate in severity 9. COPD 10. Acute on chronic kidney disease, initiated HD 11. Anemia PLAN: 1. Ideally should be on B-Blockers, hemodynamics permitting 2. Ideally should be on ACEI or ARBS, pending renal function stabilization or HD initiation 3. Continue Crestor 4. Continue A/C with caution in view of the above noted anemia 5. HD as per renal service Further plans are to follow Bakari Solitario MD
[2019-01-06 11:14] LABS: ANTIGLOMERULAR BASEMENT MEN.AB 3 units (0-20)
--- NOTE | 2019-01-06 11:39 | PN ---
Physical Exam: SUBJECTIVE: Patient seen and examined this AM. States he is having some difficulty with respirations which is improved on bilevel ventilation however patient is not tolerating bilevel for long periods of time. OBJECTIVE: Vital Signs Period Temp Pulse Resp BP Sys/Ascencio Pulse Ox Last 24 Hr 97.8 F-98.4 F 57-96 16-30 98-128/48-96 95-100 GEN: A&O, no acute distress HEENT: PERRL, moist mucus membranes NECK: Supple, no lymphadenopathy, Left IJ in place with some blood noted around biopatch HEART: RRR, no murmurs noted LUNGS: diffuse rhonchi/crackles/wheezes noted ABDOMEN: Soft, nontender, 1+ edema noted up to the umbilicus EXTREMITIES: 2+ edema in b/l LE, no calf tenderness noted Laboratory Results - last 24 hr 01/02/19 01/02/19 01/05/19 05:30 12:20 13:07 WBC 3.7 L RBC 2.18 L Hgb 7.4 L Hct 21.2 L MCV 97.0 H MCH 33.8 H MCHC 34.8 RDW 16.2 H Plt Count 86 L D MPV 8.5 D Absolute Neuts (auto) Neutrophils % Lymphocytes % Monocytes % Eosinophils % Basophils % Nucleated RBC % PTT (Actin FS) Sodium Potassium Chloride Carbon Dioxide Anion Gap BUN Creatinine Creat Clearance w eGFR Random Glucose Calcium Phosphorus Magnesium Glomerular Base Memb Ab 3 Blood Type O POSITIVE Antibody Screen Negative Crossmatch See Detail 01/06/19 01/06/19 01/06/19 05:30 05:30 05:30 WBC 3.8 L RBC 2.17 L Hgb 7.3 L Hct 20.9 L MCV 96.4 H MCH 33.8 H MCHC 35.1 RDW 16.4 H Plt Count 93 L MPV 8.2 Absolute Neuts (auto) 2.6 Neutrophils % 67.9 Lymphocytes % 13.0 Monocytes % 15.8 H Eosinophils % 2.2 D Basophils % 1.1 Nucleated RBC % 0 PTT (Actin FS) 65.8 H Sodium 132 L Potassium 3.7 Chloride 96 L Carbon Dioxide 24 Anion Gap 13 BUN 71 H Creatinine 5.2 H Creat Clearance w eGFR 10.50 Random Glucose 94 Calcium 7.4 L Phosphorus 7.9 H Magnesium 2.2 Glomerular Base Memb Ab Blood Type Antibody Screen Crossmatch 01/06/19 09:40 WBC RBC Hgb Hct MCV MCH MCHC RDW Plt Count MPV Absolute Neuts (auto) Neutrophils % Lymphocytes % Monocytes % Eosinophils % Basophils % Nucleated RBC % PTT (Actin FS) Sodium Potassium Chloride Carbon Dioxide Anion Gap BUN Creatinine Creat Clearance w eGFR Random Glucose Calcium Phosphorus Magnesium Glomerular Base Memb Ab Blood Type O POSITIVE Antibody Screen Negative Crossmatch See Detail Active Medications Generic Name Dose Route Start Last Admin Trade Name Freq PRN Reason Stop Dose Admin Albuterol Sulfate 1 amp 01/02/19 20:36 01/06/19 06:28 Ventolin 0.083% Nebulizer Soln - NEB 1 amp Q6H PRN Administration SHORT OF BREATH/WHEEZING Albuterol/Ipratropium 1 amp 01/03/19 08:00 01/06/19 07:30 Duoneb - NEB 1 amp RQID JAYCE Administration Artificial Tears 1 drop 01/02/19 14:09 01/04/19 09:55 Artificial Tears OU 1 drop TID PRN Administration DRY EYES Chlorhexidine Gluconate 1 applic 12/31/18 22:00 01/05/19 21:30 Hibiclens For Decolonization - TP 1 applic HS JAYCE Administration Heparin Sodium (Porcine) 1,000 unit 01/03/19 11:54 Heparin - IVPUSH PRN PRN Heparin Heparin Sodium (Porcine) 5,000 unit 01/03/19 11:54 Heparin - IVPUSH PRN PRN Heparin Ceftriaxone Sodium 1 gm/ 50 mls @ 100 mls/hr 01/01/19 10:00 01/06/19 09:09 Dextrose IVPB 100 mls/hr DAILY JAYCE Administration Heparin Sodium/Dextrose 25,000 units in 500 mls @ 20 mls/hr 01/03/19 12:00 13:00 Heparin Infusion - IV 900 units/hr TITR JAYCE 18 mls/hr Administration Protocol 1,000 UNITS/HR Sodium Chloride 250 mls @ 3,000 mls/hr 01/05/19 17:21 Normal Saline - IV 01/06/19 17:21 PRN PRN Hypotension during Dialysis Rosuvastatin Calcium 5 mg 01/02/19 22:00 01/05/19 21:30 Crestor - PO 5 mg HS JAYCE Administration ASSESSMENT/PLAN: Patient is an 88 year old male who presented for worsening shortness of breath and was found to have CHF exacerbation with hypotension. Patient admitted to ICU for further monitoring and management. NEURO -Awake, Alert and oriented -On no sedation PULMONARY #Acute Hypoxic Respiratory Failure -Likely secondary to CHF exacerbation. -Patient not tolerating bilevel ventilation well though requiring some pressure support, will trial High Flow O2 -Did not respons to lasix IV or drip, requiring HD for fluid removal at this time -Renal and bladder US without any signs of obstruction -Strict I&O's -Daily weights -Cardiology consult appreciated #COPD -No acute exacerbation -Albuterol nebulizer PRN -Maintain 02 Saturation >90% CARDIOLOGY #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 -Likely Cardio-Renal Syndrome -Repeat ECHO with normal EF, dilated RV and RA -Lasix drip and reassess -Initially placed on dopamine drip for blood pressure control, Central line placed,Dopamine weaned off, off Norephinephrine drip -Ranexa 500 bid -Low sodium diet -Lester placed for strict I&O's -Daily weights #Permanent atrial fibrillation -[id number] -Patient on Warfarin at home, INR improved -Heparin drip for now #CAD s/p CABG -s/p PCI/LUIS EDUARDO to LAD -Continue BB, ASA, and Rosuvastatin -Maintain Hgb > 8 -PRBCs ordered #HTN -Hold anti-htn medications as patient is hypotensive -Currently off Norepinephrine, continue to monitor MAPs -Continue to monitor BP #HLD -Continue home Crestor NEPHROLOGY #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 -Likely ATN -Baseline around 1.5 -Kidney/Bladder U/S without signs of obstruction -Avoid nephrotoxic medications -Renally dose medications -Will hold CAROLYN/ARB for now -Nephrology consult appreciated -Monitor BMP -Required Dialysis Sunday, repeat session planned for today INFECTIOUS DISEASE #UTI -QSOFA Score= 2 -U/A positive with LE 2+ and >100 Urine WBC -Ceftriaxone 1gm IVPB X 7 days, can likely d/c -Urine culture growing Enterococcus HEMATOLOGY #Supratherapeutic INR - resolved -Improved, Heparin drip in lieu of warfarin for now #Macrocytic Anemia -With possible superimposed chronic anemia -Renal consult appreciated -Continue to monitor CBC -Iron studies pending as per primary team F/E/N -None -HyperPhos. Continue to monitor -Sodium controlled diet Prophylaxis -SCD's, Heparin Drip -No GI required LINES -CV line day 7, will need removal or replacement -Shiley placed on 01/04 Disposition -Full code -Monitor in ICU on High Flow O2 Visit type - Emergency Visit Emergency Visit: Yes ED Registration Date: 12/30/18 Care time: The patient presented to the Emergency Department on the above date and was hospitalized for further evaluation of their emergent condition. - New Patient This patient is new to me today: No - Critical Care Critical Care patient: Yes Total Critical Care Time (in minutes): 36 Critical Care Statement: The care of this patient involved high complexity decision making to prevent further life threatening deterioration of the patient 's condition and/or to evaluate & treat vital organ system(s) failure or risk of failure.
[2019-01-06] MEDS: HEPARIN INFUSION - 25,000 UNITS/500 ML INFUS.BAG IV SCH (12:20)
--- NOTE | 2019-01-06 12:31 | PN ---
Progress Note, Physician History of Present Illness: Pt seen and examined at bedside. He is awake and alert. He is getting HD. He denies chest pain. - Current Medication List Current Medications: Active Medications Albuterol Sulfate (Ventolin 0.083% Nebulizer Soln -) 1 amp NEB Q6H PRN PRN Reason: SHORT OF BREATH/WHEEZING Last Admin: 01/06/19 06:28 Dose: 1 amp Albuterol/Ipratropium (Duoneb -) 1 amp NEB RQID JAYCE Last Admin: 01/06/19 11:42 Dose: 1 amp Artificial Tears (Artificial Tears) 1 drop OU TID PRN PRN Reason: DRY EYES Last Admin: 01/04/19 09:55 Dose: 1 drop Chlorhexidine Gluconate (Hibiclens For Decolonization -) 1 applic TP HS JAYCE Last Admin: 01/05/19 21:30 Dose: 1 applic Heparin Sodium (Porcine) (Heparin -) 1,000 unit IVPUSH PRN PRN PRN Reason: Heparin Heparin Sodium (Porcine) (Heparin -) 5,000 unit IVPUSH PRN PRN PRN Reason: Heparin Ceftriaxone Sodium 1 gm/ (Dextrose) 50 mls @ 100 mls/hr IVPB DAILY JAYCE Last Admin: 01/06/19 09:09 Dose: 100 mls/hr Heparin Sodium/Dextrose (Heparin Infusion -) 25,000 units in 500 mls @ 20 mls/ hr IV TITR JAYCE; Protocol Last Admin: 01/06/19 12:20 Dose: 900 units/hr, 18 mls/hr Sodium Chloride (Normal Saline -) 250 mls @ 3,000 mls/hr IV PRN PRN PRN Reason: Hypotension during Dialysis Stop: 01/06/19 17:21 Rosuvastatin Calcium (Crestor -) 5 mg PO HS JAYCE Last Admin: 01/05/19 21:30 Dose: 5 mg - Objective Vital Signs: Vital Signs Temperature 98.4 F 01/06/19 06:00 Pulse Rate 55 L 01/06/19 12:10 Respiratory Rate 18 01/06/19 12:10 Blood Pressure 104/59 L 01/06/19 12:10 O2 Sat by Pulse Oximetry (%) 100 01/06/19 10:37 Constitutional: Yes: Calm Eyes: Yes: Conjunctiva Clear HENT: Yes: Atraumatic Cardiovascular: Yes: S1, S2 Respiratory: Yes: On Nasal O2 Gastrointestinal: Yes: Soft Genitourinary: Yes: Lester Present, Oliguria Musculoskeletal: Yes: Muscle Weakness Edema: Yes Edema: LLE: 2+, RLE: 2+ Neurological: Yes: Oriented Psychiatric: Yes: Oriented Labs: CBC, BMP 01/06/19 05:30 01/06/19 05:30 INR, PTT INR 1.93 (0.83-1.09) H 01/03/19 05:30 - ....Imaging Chest X-ray: Report Reviewed Problem List - Problems (1) [id number]-jbyboaz kidney injury Code(s): N17.9 - ACUTE KIDNEY FAILURE, UNSPECIFIED; N18.9 - CHRONIC KIDNEY DISEASE, UNSPECIFIED Qualifiers: Acute renal failure type: unspecified Chronic kidney disease stage: unspecified stage Qualified Code(s): N17.9 - Acute kidney failure, unspecified ; N18.9 - Chronic kidney disease, unspecified (2) Congestive heart failure Code(s): I50.9 - HEART FAILURE, UNSPECIFIED Qualifiers: Heart failure type: unspecified Heart failure chronicity: acute on chronic Qualified Code(s): I50.9 - Heart failure, unspecified Assessment/Plan Current Medications Generic Name Dose Route Start Last Admin Trade Name Freq PRN Reason Stop Dose Admin Albuterol Sulfate 1 amp 01/02/19 20:36 01/06/19 06:28 Ventolin 0.083% Nebulizer Soln - NEB 1 amp Q6H PRN Administration SHORT OF BREATH/WHEEZING Albuterol/Ipratropium 1 amp 01/03/19 08:00 01/06/19 11:42 Duoneb - NEB 1 amp RQID JAYCE Administration Artificial Tears 1 drop 01/02/19 14:09 01/04/19 09:55 Artificial Tears OU 1 drop TID PRN Administration DRY EYES Chlorhexidine Gluconate 1 applic 12/31/18 22:00 01/05/19 21:30 Hibiclens For Decolonization - TP 1 applic HS JAYCE Administration Heparin Sodium (Porcine) 1,000 unit 01/03/19 11:54 Heparin - IVPUSH PRN PRN Heparin Heparin Sodium (Porcine) 5,000 unit 01/03/19 11:54 Heparin - IVPUSH PRN PRN Heparin Ceftriaxone Sodium 1 gm/ 50 mls @ 100 mls/hr 01/01/19 10:00 01/06/19 09:09 Dextrose IVPB 100 mls/hr DAILY JAYCE Administration Heparin Sodium/Dextrose 25,000 units in 500 mls @ 20 mls/hr 01/03/19 12:00 12:20 Heparin Infusion - IV 900 units/hr TITR JAYCE 18 mls/hr Administration Protocol 1,000 UNITS/HR Sodium Chloride 250 mls @ 3,000 mls/hr 01/05/19 17:21 Normal Saline - IV 01/06/19 17:21 PRN PRN Hypotension during Dialysis Rosuvastatin Calcium 5 mg 01/02/19 22:00 01/05/19 21:30 Crestor - PO 5 mg HS JAYCE Administration Impression 1. ANGELA 2. CKD 3. CHF 4. hypotension 5. resp failure requiring bipap 6. a-fib 7. hld 8. bilateral pleural effusions Plan - HD today - will likely dialyze again tomorrow - minimize fluid intake - will try to keep net negative - discussed with ICU team - daily cxr, no great change today - cont to monitor lytes - pt likely has ATN - discussed with ICU team - monitor pulse ox - avoid nsaids - avoid hypotensive episodes if possible - prognosis guarded
--- NOTE | 2019-01-06 13:19 | PN ---
Teaching Attending Note Name of Resident: Venancio Combs ATTENDING PHYSICIAN STATEMENT I saw and evaluated the patient. I reviewed the resident's note and discussed the case with the resident. I agree with the resident's findings and plan as documented. SUBJECTIVE: Patient seen and examined in the ICU. Tachypneic at rest. Denies CP. Some dry cough. Will be placed on acute HD. CRX: increasing bilateral congestive changes and pleural effusions OBJECTIVE: Intake & Output 01/03/19 01/04/19 01/05/19 01/06/19 23:59 23:59 23:59 23:59 Intake Total 320.3 971 792 Output Total 150 225 135 50 Balance 170.3 746 657 -50 Weight 216 lb 0.848 oz 216 lb 0.848 oz Last Vital Signs Temp Pulse Resp BP Pulse Ox 98.4 F 64 18 105/68 100 01/06/19 06:00 01/06/19 13:16 01/06/19 13:16 01/06/19 13:16 01/06/19 10:37 Active Medications Albuterol Sulfate (Ventolin 0.083% Nebulizer Soln -) 1 amp NEB Q6H PRN PRN Reason: SHORT OF BREATH/WHEEZING Last Admin: 01/06/19 06:28 Dose: 1 amp Albuterol/Ipratropium (Duoneb -) 1 amp NEB RQID JAYCE Last Admin: 01/06/19 11:42 Dose: 1 amp Artificial Tears (Artificial Tears) 1 drop OU TID PRN PRN Reason: DRY EYES Last Admin: 01/04/19 09:55 Dose: 1 drop Chlorhexidine Gluconate (Hibiclens For Decolonization -) 1 applic TP HS JACYE Last Admin: 01/05/19 21:30 Dose: 1 applic Heparin Sodium (Porcine) (Heparin -) 1,000 unit IVPUSH PRN PRN PRN Reason: Heparin Heparin Sodium (Porcine) (Heparin -) 5,000 unit IVPUSH PRN PRN PRN Reason: Heparin Ceftriaxone Sodium 1 gm/ (Dextrose) 50 mls @ 100 mls/hr IVPB DAILY JAYCE Last Admin: 01/06/19 09:09 Dose: 100 mls/hr Heparin Sodium/Dextrose (Heparin Infusion -) 25,000 units in 500 mls @ 20 mls/ hr IV TITR JAYCE; Protocol Last Admin: 01/06/19 12:20 Dose: 900 units/hr, 18 mls/hr Sodium Chloride (Normal Saline -) 250 mls @ 3,000 mls/hr IV PRN PRN PRN Reason: Hypotension during Dialysis Stop: 01/06/19 17:21 Rosuvastatin Calcium (Crestor -) 5 mg PO HS [facility] Last Admin: 01/05/19 21:30 Dose: 5 mg Gen: tachypneic at rest Heart: RRR Lung: scattered rhonchi Abd: soft, nontender Ext: + edema Laboratory Results - last 24 hr 01/02/19 01/02/19 01/05/19 05:30 12:20 13:07 WBC 3.7 L RBC 2.18 L Hgb 7.4 L Hct 21.2 L MCV 97.0 H MCH 33.8 H MCHC 34.8 RDW 16.2 H Plt Count 86 L D MPV 8.5 D Absolute Neuts (auto) Neutrophils % Lymphocytes % Monocytes % Eosinophils % Basophils % Nucleated RBC % PTT (Actin FS) Sodium Potassium Chloride Carbon Dioxide Anion Gap BUN Creatinine Creat Clearance w eGFR Random Glucose Calcium Phosphorus Magnesium Glomerular Base Memb Ab 3 HCV Quantitation Hcv not detected HCV RNA log copies/mL TNP Blood Type O POSITIVE Antibody Screen Negative Crossmatch See Detail 01/06/19 01/06/19 01/06/19 05:30 05:30 05:30 WBC 3.8 L RBC 2.17 L Hgb 7.3 L Hct 20.9 L MCV 96.4 H MCH 33.8 H MCHC 35.1 RDW 16.4 H Plt Count 93 L MPV 8.2 Absolute Neuts (auto) 2.6 Neutrophils % 67.9 Lymphocytes % 13.0 Monocytes % 15.8 H Eosinophils % 2.2 D Basophils % 1.1 Nucleated RBC % 0 PTT (Actin FS) 65.8 H Sodium 132 L Potassium 3.7 Chloride 96 L Carbon Dioxide 24 Anion Gap 13 BUN 71 H Creatinine 5.2 H Creat Clearance w eGFR 10.50 Random Glucose 94 Calcium 7.4 L Phosphorus 7.9 H Magnesium 2.2 Glomerular Base Memb Ab HCV Quantitation HCV RNA log copies/mL Blood Type Antibody Screen Crossmatch 01/06/19 09:40 WBC RBC Hgb Hct MCV MCH MCHC RDW Plt Count MPV Absolute Neuts (auto) Neutrophils % Lymphocytes % Monocytes % Eosinophils % Basophils % Nucleated RBC % PTT (Actin FS) Sodium Potassium Chloride Carbon Dioxide Anion Gap BUN Creatinine Creat Clearance w eGFR Random Glucose Calcium Phosphorus Magnesium Glomerular Base Memb Ab HCV Quantitation HCV RNA log copies/mL Blood Type O POSITIVE Antibody Screen Negative Crossmatch See Detail ASSESSMENT AND PLAN: Acute Hypoxic Respiratory Failure Acute on Chronic Diastolic Heart Failure Volume Overload Atrial Fibrillation Acute on Chronic Renal Failure COPD Anemia Hypercholesterolemia - HD per Renal for volume removal - monitor urine output, creatinine - daily weights - Levophed drip if needed to maintain MAP>65 - O2 to keep SpO2 >90% - HFOT / BiPAP to assist in work of breathing - rate control - AC - ICU monitoring for tenuous hemodynamics and respiratory monitoring Dr Guevara critical care time spent in reviewing chart, evaluating patient and formulating plan 35 min
[2019-01-06 17:15] LABS: ATYPICAL pANCA <1:20 titer (Neg:<1:20); C-ANCA <1:20 titer (Neg:<1:20); P-ANCA <1:20 titer (Neg:<1:20)
--- NOTE | 2019-01-06 18:56 | PN ---
Teaching Attending Note Name of Resident: Ernestina Hodges ATTENDING PHYSICIAN STATEMENT I saw and evaluated the patient. I reviewed the resident's note and discussed the case with the resident. I agree with the resident's findings and plan as documented. SUBJECTIVE: Mr Aleman says he feel ok. Says his breathing is not bad. Denies cp and n/v. OBJECTIVE: Last Vital Signs Temp Pulse Resp BP Pulse Ox 36.9 C 64 22 H 93/71 100 01/06/19 06:00 01/06/19 18:00 01/06/19 18:00 01/06/19 18:00 01/06/19 10:37 Gen: nad Pulm: ronchi bilaterally CV: rrr w/ 11/20 SOFIE Abd: +bs, s/nt/nd Ext: 1+ BLE edema CBC, BMP 01/06/19 05:30 01/06/19 05:30 ASSESSMENT AND PLAN: (1) Acute on chronic diastolic (congestive) heart failure Assessment/Plan: -continue diuresis with HD -HD today, tolerating -appreciate cardiology assistance Code(s): I50.33 - ACUTE ON CHRONIC DIASTOLIC (CONGESTIVE) HEART FAILURE (2) [id number] kidney injury Assessment/Plan: -continue HD -case d/w Dr Montgomery Code(s): N17.9 - ACUTE KIDNEY FAILURE, UNSPECIFIED; N18.9 - CHRONIC KIDNEY DISEASE, UNSPECIFIED Qualifiers: Acute renal failure type: unspecified Chronic kidney disease stage: unspecified stage Qualified Code(s): N17.9 - Acute kidney failure, unspecified ; N18.9 - Chronic kidney disease, unspecified (3) Warfarin toxicity Assessment/Plan: -on heparin gtt currently Code(s): T45.511A - POISONING BY ANTICOAGULANTS, ACCIDENTAL, INIT (4) CAD (coronary artery disease) Assessment/Plan: -quiescent -cardiology following Code(s): I25.10 - ATHSCL HEART DISEASE OF [place] CORONARY ARTERY W/O ANG PCTRS Qualifiers: Coronary Disease-Associated Artery/Lesion type: [place] artery [place] vs. transplanted heart: [place] heart Associated angina: without angina Qualified Code(s): I25.10 - Atherosclerotic heart disease of [place] coronary artery without angina pectoris (5) COPD (chronic obstructive pulmonary disease) Assessment/Plan: -not in exacerbation -pulmonary following Code(s): J44.9 - CHRONIC OBSTRUCTIVE PULMONARY DISEASE, UNSPECIFIED Qualifiers: COPD type: unspecified COPD Qualified Code(s): J44.9 - Chronic obstructive pulmonary disease, unspecified (6) Chronic anemia Assessment/Plan: -monitor -may need transfusion but can currently hold Code(s): D64.9 - ANEMIA, UNSPECIFIED (7) HTN (hypertension) Assessment/Plan: -well controlled Code(s): I10 - ESSENTIAL (PRIMARY) HYPERTENSION Qualifiers: Hypertension type: essential hypertension Qualified Code(s): I10 - Essential (primary) hypertension (8) Pulmonary hypertension Assessment/Plan: -noted Code(s): I27.2 - OTHER SECONDARY PULMONARY HYPERTENSION * DO NOT USE * (9) Atrial fibrillation Assessment/Plan: -currently in sinus -history of bradycardia and planning for pacemaker -anticoagulation with heparin gtt Code(s): I48.91 - UNSPECIFIED ATRIAL FIBRILLATION Qualifiers: Atrial fibrillation type: permanent Qualified Code(s): I48.2 - Chronic atrial fibrillation (10) Hyperlipidemia Assessment/Plan: -crestor Code(s): E78.5 - HYPERLIPIDEMIA, UNSPECIFIED Qualifiers: Hyperlipidemia type: pure hypercholesterolemia Qualified Code(s): E78.00 - Pure hypercholesterolemia, unspecified; E78.0 - Pure hypercholesterolemia (11) UTI -stop rocephin and monitor Problem List - Problems (1) Acute on chronic diastolic (congestive) heart failure Code(s): I50.33 - ACUTE ON CHRONIC DIASTOLIC (CONGESTIVE) HEART FAILURE (2) Jzrey-jy-kklbycz kidney injury Code(s): N17.9 - ACUTE KIDNEY FAILURE, UNSPECIFIED; N18.9 - CHRONIC KIDNEY DISEASE, UNSPECIFIED Qualifiers: Acute renal failure type: unspecified Chronic kidney disease stage: unspecified stage Qualified Code(s): N17.9 - Acute kidney failure, unspecified ; N18.9 - Chronic kidney disease, unspecified (3) Warfarin toxicity Code(s): T45.511A - POISONING BY ANTICOAGULANTS, ACCIDENTAL, INIT (4) CAD (coronary artery disease) Code(s): I25.10 - ATHSCL HEART DISEASE OF [place] CORONARY ARTERY W/O ANG PCTRS Qualifiers: Coronary Disease-Associated Artery/Lesion type: [place] artery [place] vs. transplanted heart: [place] heart Associated angina: without angina Qualified Code(s): I25.10 - Atherosclerotic heart disease of [place] coronary artery without angina pectoris (5) COPD (chronic obstructive pulmonary disease) Code(s): J44.9 - CHRONIC OBSTRUCTIVE PULMONARY DISEASE, UNSPECIFIED Qualifiers: COPD type: unspecified COPD Qualified Code(s): J44.9 - Chronic obstructive pulmonary disease, unspecified (6) Chronic anemia Code(s): D64.9 - ANEMIA, UNSPECIFIED (7) HTN (hypertension) Code(s): I10 - ESSENTIAL (PRIMARY) HYPERTENSION Qualifiers: Hypertension type: essential hypertension Qualified Code(s): I10 - Essential (primary) hypertension (8) Pulmonary hypertension Code(s): I27.2 - OTHER SECONDARY PULMONARY HYPERTENSION * DO NOT USE * (9) Atrial fibrillation Code(s): I48.91 - UNSPECIFIED ATRIAL FIBRILLATION Qualifiers: Atrial fibrillation type: permanent Qualified Code(s): I48.2 - Chronic atrial fibrillation (10) Hyperlipidemia Code(s): E78.5 - HYPERLIPIDEMIA, UNSPECIFIED Qualifiers: Hyperlipidemia type: pure hypercholesterolemia Qualified Code(s): E78.00 - Pure hypercholesterolemia, unspecified; E78.0 - Pure hypercholesterolemia
--- NOTE | 2019-01-06 19:00 | PN ---
Physical Exam: SUBJECTIVE: Patient seen and examined; increased work of breathing with accessory muscle use; placed back on bipap OBJECTIVE: Vital Signs Period Temp Pulse Resp BP Sys/Ascencio Pulse Ox Last 24 Hr 98.4 F-98.4 F 55-96 16-30 93-120/47-96 95-100 GENERAL: The patient is awake, alert, and fully oriented,SOB LUNGS: +accessory muscle use. HEART: Regular rate and rhythm, S1, S2 without murmur, rub or gallop. ABDOMEN: Soft, nontender, nondistended, normoactive bowel sounds, no guarding, no rebound, no hepatosplenomegaly, no masses. EXTREMITIES: 2+ pulses, warm, well-perfused, +edema. NEUROLOGICAL: Cranial nerves II through XII grossly intact. Normal speech, gait not observed. PSYCH: Normal mood, normal affect. SKIN: Warm, dry, normal turgor, no rashes or lesions noted Laboratory Results - last 24 hr 01/02/19 01/06/19 01/06/19 05:30 05:30 05:30 WBC 3.8 L RBC 2.17 L Hgb 7.3 L Hct 20.9 L MCV 96.4 H MCH 33.8 H MCHC 35.1 RDW 16.4 H Plt Count 93 L MPV 8.2 Absolute Neuts (auto) 2.6 Neutrophils % 67.9 Lymphocytes % 13.0 Monocytes % 15.8 H Eosinophils % 2.2 D Basophils % 1.1 Nucleated RBC % 0 PTT (Actin FS) 65.8 H Sodium Potassium Chloride Carbon Dioxide Anion Gap BUN Creatinine Creat Clearance w eGFR Random Glucose Calcium Phosphorus Magnesium c-ANCA <1:20 Proteinase 3 (PR3) <3.5 p-ANCA <1:20 Atypical p-ANCA <1:20 Myeloperoxidase Ab <9.0 Glomerular Base Memb Ab 3 HCV Quantitation Hcv not detected HCV RNA log copies/mL TNP Blood Type Antibody Screen Crossmatch 01/06/19 01/06/19 05:30 09:40 WBC RBC Hgb Hct MCV MCH MCHC RDW Plt Count MPV Absolute Neuts (auto) Neutrophils % Lymphocytes % Monocytes % Eosinophils % Basophils % Nucleated RBC % PTT (Actin FS) Sodium 132 L Potassium 3.7 Chloride 96 L Carbon Dioxide 24 Anion Gap 13 BUN 71 H Creatinine 5.2 H Creat Clearance w eGFR 10.50 Random Glucose 94 Calcium 7.4 L Phosphorus 7.9 H Magnesium 2.2 c-ANCA Proteinase 3 (PR3) p-ANCA Atypical p-ANCA Myeloperoxidase Ab Glomerular Base Memb Ab HCV Quantitation HCV RNA log copies/mL Blood Type O POSITIVE Antibody Screen Negative Crossmatch See Detail Active Medications Generic Name Dose Route Start Last Admin Trade Name Freq PRN Reason Stop Dose Admin Albuterol Sulfate 1 amp 01/02/19 20:36 01/06/19 06:28 Ventolin 0.083% Nebulizer Soln - NEB 1 amp Q6H PRN Administration SHORT OF BREATH/WHEEZING Albuterol/Ipratropium 1 amp 01/03/19 08:00 01/06/19 15:10 Duoneb - NEB 1 amp RQID JAYCE Administration Artificial Tears 1 drop 01/02/19 14:09 01/04/19 09:55 Artificial Tears OU 1 drop TID PRN Administration DRY EYES Chlorhexidine Gluconate 1 applic 12/31/18 22:00 01/05/19 21:30 Hibiclens For Decolonization - TP 1 applic HS JAYCE Administration Heparin Sodium (Porcine) 1,000 unit 01/03/19 11:54 Heparin - IVPUSH PRN PRN Heparin Heparin Sodium (Porcine) 5,000 unit 01/03/19 11:54 Heparin - IVPUSH PRN PRN Heparin Heparin Sodium/Dextrose 25,000 units in 500 mls @ 20 mls/hr 01/03/19 12:00 12:20 Heparin Infusion - IV 900 units/hr TITR JAYCE 18 mls/hr Administration Protocol 1,000 UNITS/HR Rosuvastatin Calcium 5 mg 01/02/19 22:00 01/05/19 21:30 Crestor - PO 5 mg HS JAYCE Administration ASSESSMENT/PLAN: This is a 88 year old male with a history of CAD s/p CABG, s/p PCI/LUIS EDUARDO , persistnat atrial fibrillation, diastolic congestive heart failure, HTN, carotid stenosis who presented with worsening SON, orthopnea, b/l leg edema, found to be in acute heart failure. #Acute on chronic diastolic heart failure -daily weights, strict I/Os; christina in place -cardio , renal -on HD #Acute hypoxic respiratory failure - sec to vol overload; on BiPAP #Atrial fibrillation -rate controlled -on heparin ggt #Acute on chronic kidney disease -HD started -cardio; renal vs sec to hypotension; -urine lytes -stirct i/os -ua, uc #Anemia -most likely sec to ckd -iron studies were low; need for venofer/ epogen #UTI: -completed antibiotics course #COPD -; cont IH bronchodilators #HTN -hold home meds; currently hypotensive on dopamine #HLD -statin Diet npo while on bIpap Visit type - Emergency Visit Emergency Visit: Yes ED Registration Date: 12/30/18 Care time: The patient presented to the Emergency Department on the above date and was hospitalized for further evaluation of their emergent condition. - New Patient This patient is new to me today: No - Critical Care Critical Care patient: Yes Total Critical Care Time (in minutes): 35 Critical Care Statement: The care of this patient involved high complexity decision making to prevent further life threatening deterioration of the patient 's condition and/or to evaluate & treat vital organ system(s) failure or risk of failure.
[2019-01-06] MEDS ORDERED: PT OWN MED DRAWER 7, Y5N ONE (21:31)
[2019-01-06] MEDS: CHLORHEXIDINE GLUCONATE 4% CLEANSER FOR DECOLONIZATION TP SCH (23:17)
[2019-01-07 07:02] LABS: HEMOGLOBIN 7.6 GM/dL (11.7-16.9); LYMPH % 9.5 % (8-40); MCH 33.3 pg (25.7-33.7); MCHC 34.7 g/dl (32.0-35.9); MEAN PLT VOLUME 7.7 fl (7.5-11.1); MONO % 15.5 % (3.8-10.2); PLATELET COUNT 93 K/MM3 (134-434); RBC 2.29 M/mm3 (4.00-5.60); RDW 16.4 % (11.9-15.9); WHITE BLOOD COUNT 3.9 K/mm3 (4.0-10.0)
[2019-01-07 08:03] LABS: ALBUMIN 2.8 g/dl (3.4-5.0); ALK PHOS 71 U/L (45-117); ANION GAP 11 MMOL/L (8-16); BILIRUBIN,TOTAL 0.5 mg/dL (0.2-1); BLOOD UREA NITROGEN 47 mg/dL (7-18); CALCIUM 7.3 mg/dL (8.5-10.1); CHLORIDE 99 mmol/L (98-107); CO2 28 mmol/L (21-32); CREATININE 4.1 mg/dL (0.55-1.3); GLUCOSE,RANDOM 92 mg/dL (74-106); MAGNESIUM 2.2 mg/dL (1.8-2.4); POTASSIUM 3.1 mmol/L (3.5-5.1); SGOT/AST 27 U/L (15-37); SGPT/ALT 19 U/L (13-61); SODIUM 137 mmol/L (136-145); TOT PROT 5.7 g/dl (6.4-8.2)
[2019-01-07] MEDS: ALBUTEROL SO4 2.5/IPRATROPIUM 0.5 INH SOL 3 ML VIAL.NEB. NEB SCH ×4 (08:05→21:20)
--- NOTE | 2019-01-07 08:27 | PN ---
Physical Exam: SUBJECTIVE: Patient seen and examined this AM. He states his respiratory status overnight was overall okay with occasional SOB. still requiring high flow O2. Minimal urine output noted overnight OBJECTIVE: Vital Signs Period Temp Pulse Resp BP Sys/Ascencio Pulse Ox Last 24 Hr 55-77 16-26 89-111/46-71 100-100 GEN: A&O, no acute distress HEENT: PERRL, moist mucus membranes NECK: Supple, no lymphadenopathy, Left IJ in place HEART: RRR, no murmurs noted LUNGS: diffuse rhonchi/crackles/wheezes mildly improved ABDOMEN: Soft, nontender, normoactive bowel sounds EXTREMITIES: 2+ edema in b/l LE, no calf tenderness noted Laboratory Results - last 24 hr 01/02/19 01/06/19 01/07/19 05:30 09:40 05:30 WBC 3.9 L RBC 2.29 L Hgb 7.6 L Hct 22.0 L MCV 96.0 MCH 33.3 MCHC 34.7 RDW 16.4 H Plt Count 93 L MPV 7.7 Absolute Neuts (auto) 2.8 Neutrophils % 72.0 Lymphocytes % 9.5 D Monocytes % 15.5 H Eosinophils % 2.0 Basophils % 1.0 Nucleated RBC % 0 PTT (Actin FS) Sodium Potassium Chloride Carbon Dioxide Anion Gap BUN Creatinine Creat Clearance w eGFR Random Glucose Calcium Phosphorus Magnesium Total Bilirubin AST ALT Alkaline Phosphatase Total Protein Albumin c-ANCA <1:20 Proteinase 3 (PR3) <3.5 p-ANCA <1:20 Atypical p-ANCA <1:20 Myeloperoxidase Ab <9.0 Glomerular Base Memb Ab 3 HCV Quantitation Hcv not detected HCV RNA log copies/mL TNP Blood Type O POSITIVE Antibody Screen Negative Crossmatch See Detail 01/07/19 01/07/19 05:30 05:30 WBC RBC Hgb Hct MCV MCH MCHC RDW Plt Count MPV Absolute Neuts (auto) Neutrophils % Lymphocytes % Monocytes % Eosinophils % Basophils % Nucleated RBC % PTT (Actin FS) 59.5 H Sodium 137 Potassium 3.1 L Chloride 99 Carbon Dioxide 28 Anion Gap 11 BUN 47 H Creatinine 4.1 H Creat Clearance w eGFR 13.81 Random Glucose 92 Calcium 7.3 L Phosphorus 6.0 H Magnesium 2.2 Total Bilirubin 0.5 AST 27 ALT 19 Alkaline Phosphatase 71 Total Protein 5.7 L Albumin 2.8 L c-ANCA Proteinase 3 (PR3) p-ANCA Atypical p-ANCA Myeloperoxidase Ab Glomerular Base Memb Ab HCV Quantitation HCV RNA log copies/mL Blood Type Antibody Screen Crossmatch Active Medications Generic Name Dose Route Start Last Admin Trade Name Freq PRN Reason Stop Dose Admin Albuterol Sulfate 1 amp 01/02/19 20:36 01/06/19 06:28 Ventolin 0.083% Nebulizer Soln - NEB 1 amp Q6H PRN Administration SHORT OF BREATH/WHEEZING Albuterol/Ipratropium 1 amp 01/03/19 08:00 01/06/19 21:30 Duoneb - NEB 1 amp RQID JAYCE Administration Artificial Tears 1 drop 01/02/19 14:09 01/04/19 09:55 Artificial Tears OU 1 drop TID PRN Administration DRY EYES Chlorhexidine Gluconate 1 applic 12/31/18 22:00 01/06/19 23:17 Hibiclens For Decolonization - TP 1 applic HS JAYCE Administration Heparin Sodium (Porcine) 1,000 unit 01/03/19 11:54 Heparin - IVPUSH PRN PRN Heparin Heparin Sodium (Porcine) 5,000 unit 01/03/19 11:54 Heparin - IVPUSH PRN PRN Heparin Heparin Sodium/Dextrose 25,000 units in 500 mls @ 20 mls/hr 01/03/19 12:00 12:20 Heparin Infusion - IV 900 units/hr TITR JAYCE 18 mls/hr Administration Protocol 1,000 UNITS/HR Rosuvastatin Calcium 5 mg 01/02/19 22:00 01/05/19 21:30 Crestor - PO 5 mg HS JAYCE Administration ASSESSMENT/PLAN: Patient is an 88 year old male who presented for worsening shortness of breath and was found to have CHF exacerbation with hypotension. Patient admitted to ICU for further monitoring and management. NEURO -Awake, Alert and oriented -On no sedation PULMONARY #Acute Hypoxic Respiratory Failure -Likely ATN without recovery of renal function and inadequate diuresis -High Flow O2 for pressure support -Did not respond to lasix IV or drip, requiring HD for fluid removal at this time -Renal and bladder US without any signs of obstruction -Strict I&O's -Daily weights -Cardiology consult appreciated #COPD -No acute exacerbation -Albuterol nebulizer PRN -Maintain 02 Saturation >90% CARDIOLOGY #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 -Likely Cardio-Renal Syndrome -Repeat ECHO with normal EF, dilated RV and RA -Off pressors -Ranexa 500 bid -Low sodium diet -Lester placed for strict I&O's -Daily weights #Permanent atrial fibrillation -[id number] -Patient on Warfarin at home, INR improved -Heparin drip for now #CAD s/p CABG -s/p PCI/LUIS EDUARDO to LAD -Continue BB, ASA, and Rosuvastatin -Maintain Hgb > 8 #HTN -Hold anti-htn medications as patient is hypotensive -Currently off Norepinephrine, continue to monitor MAPs -Continue to monitor BP #HLD -Continue home Crestor NEPHROLOGY #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 -Likely ATN -Baseline around 1.5 -Kidney/Bladder U/S without signs of obstruction -Avoid nephrotoxic medications -Renally dose medications -Will hold CAROLYN/ARB for now -Nephrology consult appreciated -Monitor BMP -Requiring dialysis for volume removal, repeat HD scheduled today INFECTIOUS DISEASE #UTI -QSOFA Score= 2 -U/A positive with LE 2+ and >100 Urine WBC -Completed course of Rocephin -Urine culture growing Enterococcus HEMATOLOGY #Supratherapeutic INR - resolved -Improved, Heparin drip in lieu of warfarin for now #Macrocytic Anemia -With possible superimposed chronic anemia -Renal consult appreciated -Continue to monitor CBC -Iron studies normal F/E/N -None -HyperPhos. Continue to monitor -Sodium controlled diet Prophylaxis -SCD's, Heparin Drip -No GI required LINES -CV line to be removed today -Shiley placed on 01/04, remove today after dialysis, can place Trialysis as needed for further dialysis/access Disposition -Full code -Monitor in ICU on High Flow O2 Visit type - Emergency Visit Emergency Visit: Yes ED Registration Date: 12/30/18 Care time: The patient presented to the Emergency Department on the above date and was hospitalized for further evaluation of their emergent condition. - New Patient This patient is new to me today: No - Critical Care Critical Care patient: Yes Total Critical Care Time (in minutes): 36 Critical Care Statement: The care of this patient involved high complexity decision making to prevent further life threatening deterioration of the patient 's condition and/or to evaluate & treat vital organ system(s) failure or risk of failure.
[2019-01-07] MEDS ORDERED: POTASSIUM CHLORIDE TABS 20 MEQ TABLET.ER (FP) PO ONE ×2 (12:06→16:45)
--- NOTE | 2019-01-07 12:11 | PN ---
Progress Note, Physician History of Present Illness: Pt seen and examined at bedside. He is awake but appears weak. He complains of shortness of breath. - Current Medication List Current Medications: Active Medications Albuterol Sulfate (Ventolin 0.083% Nebulizer Soln -) 1 amp NEB Q6H PRN PRN Reason: SHORT OF BREATH/WHEEZING Last Admin: 01/06/19 06:28 Dose: 1 amp Albuterol/Ipratropium (Duoneb -) 1 amp NEB RQID JAYCE Last Admin: 01/07/19 08:05 Dose: 1 amp Artificial Tears (Artificial Tears) 1 drop OU TID PRN PRN Reason: DRY EYES Last Admin: 01/04/19 09:55 Dose: 1 drop Chlorhexidine Gluconate (Hibiclens For Decolonization -) 1 applic TP HS [facility] Last Admin: 01/06/19 23:17 Dose: 1 applic Heparin Sodium (Porcine) (Heparin -) 1,000 unit IVPUSH PRN PRN PRN Reason: Heparin Heparin Sodium (Porcine) (Heparin -) 5,000 unit IVPUSH PRN PRN PRN Reason: Heparin Heparin Sodium/Dextrose (Heparin Infusion -) 25,000 units in 500 mls @ 20 mls/ hr IV TITR JAYCE; Protocol Last Admin: 01/06/19 12:20 Dose: 900 units/hr, 18 mls/hr Sodium Chloride (Normal Saline -) 250 mls @ 3,000 mls/hr IV PRN PRN PRN Reason: Hypotension during Dialysis Stop: 01/08/19 12:04 Potassium Chloride (K-Dur -) 40 meq PO ONCE ONE Stop: 01/07/19 12:07 Rosuvastatin Calcium (Crestor -) 5 mg PO HS [facility] Last Admin: 01/05/19 21:30 Dose: 5 mg - Objective Vital Signs: Vital Signs Temperature 98.7 F 01/07/19 10:00 Pulse Rate 60 01/07/19 10:00 Respiratory Rate 26 H 01/07/19 10:00 Blood Pressure 99/52 L 01/07/19 10:00 O2 Sat by Pulse Oximetry (%) 100 01/07/19 09:00 Constitutional: Yes: Calm Eyes: Yes: Conjunctiva Clear HENT: Yes: Atraumatic Cardiovascular: Yes: S1, S2 Respiratory: Yes: On Nasal O2, Rhonchi Gastrointestinal: Yes: Soft Genitourinary: Yes: Lester Present, Oliguria Musculoskeletal: Yes: WNL Edema: Yes Edema: LLE: 2+, RLE: 2+ Neurological: Yes: Oriented Psychiatric: Yes: Oriented Labs: CBC, BMP 01/07/19 05:30 01/07/19 05:30 INR, PTT INR 1.93 (0.83-1.09) H 01/03/19 05:30 Problem List - Problems (1) Wixfb-[id number] kidney injury Code(s): N17.9 - ACUTE KIDNEY FAILURE, UNSPECIFIED; N18.9 - CHRONIC KIDNEY DISEASE, UNSPECIFIED Qualifiers: Acute renal failure type: unspecified Chronic kidney disease stage: unspecified stage Qualified Code(s): N17.9 - Acute kidney failure, unspecified ; N18.9 - Chronic kidney disease, unspecified (2) Congestive heart failure Code(s): I50.9 - HEART FAILURE, UNSPECIFIED Qualifiers: Heart failure type: unspecified Heart failure chronicity: acute on chronic Qualified Code(s): I50.9 - Heart failure, unspecified Assessment/Plan Current Medications Generic Name Dose Route Start Last Admin Trade Name Freq PRN Reason Stop Dose Admin Albuterol Sulfate 1 amp 01/02/19 20:36 01/06/19 06:28 Ventolin 0.083% Nebulizer Soln - NEB 1 amp Q6H PRN Administration SHORT OF BREATH/WHEEZING Albuterol/Ipratropium 1 amp 01/03/19 08:00 01/07/19 08:05 Duoneb - NEB 1 amp RQID JAYCE Administration Artificial Tears 1 drop 01/02/19 14:09 01/04/19 09:55 Artificial Tears OU 1 drop TID PRN Administration DRY EYES Chlorhexidine Gluconate 1 applic 12/31/18 22:00 01/06/19 23:17 Hibiclens For Decolonization - TP 1 applic HS JAYCE Administration Heparin Sodium (Porcine) 1,000 unit 01/03/19 11:54 Heparin - IVPUSH PRN PRN Heparin Heparin Sodium (Porcine) 5,000 unit 01/03/19 11:54 Heparin - IVPUSH PRN PRN Heparin Heparin Sodium/Dextrose 25,000 units in 500 mls @ 20 mls/hr 01/03/19 12:00 12:20 Heparin Infusion - IV 900 units/hr TITR JAYCE 18 mls/hr Administration Protocol 1,000 UNITS/HR Sodium Chloride 250 mls @ 3,000 mls/hr 01/07/19 12:04 Normal Saline - IV 01/08/19 12:04 PRN PRN Hypotension during Dialysis Rosuvastatin Calcium 5 mg 01/02/19 22:00 01/05/19 21:30 Crestor - PO 5 mg HS JAYCE Administration Impression 1. ANGELA 2. CKD 3. CHF 4. hypotension 5. resp failure requiring bipap 6. a-fib 7. hld 8. bilateral pleural effusions 9. anemia Plan - will arrange for HD with volume removal again today - can take shiley out after HD - replace potassium - monitor urine output - prbc with HD - minimize fluid intake - will try to keep net negative - discussed with ICU team - pt likely has ATN - discussed with ICU team - monitor pulse ox - avoid nsaids - pt off of pressors, monitor bp - prognosis guarded
--- NOTE | 2019-01-07 15:04 | PN ---
Teaching Attending Note Name of Resident: Venancio Combs ATTENDING PHYSICIAN STATEMENT I saw and evaluated the patient. I reviewed the resident's note and discussed the case with the resident. I agree with the resident's findings and plan as documented. SUBJECTIVE: Patient seen and examined in the ICU. Mildly tachypneic at rest on HFOT. Denies CP. Some dry cough. For HD today. OBJECTIVE: Intake & Output 01/04/19 01/05/19 01/06/19 01/07/19 23:59 23:59 23:59 23:59 Intake Total 971 792 416 340 Output Total 225 135 100 Balance 746 657 316 340 Weight 216 lb 0.848 oz 216 lb 0.848 oz 204 lb 9.423 oz Last Vital Signs Temp Pulse Resp BP Pulse Ox 98.4 F 46 L 26 H 102/51 L 100 01/07/19 14:00 01/07/19 14:00 01/07/19 14:00 01/07/19 14:00 01/07/19 09:00 Active Medications Albumin Human (Albumin Human 25% -) 12.5 gm IVPB Q30M JAYCE Stop: 01/07/19 16:46 Albuterol Sulfate (Ventolin 0.083% Nebulizer Soln -) 1 amp NEB Q6H PRN PRN Reason: SHORT OF BREATH/WHEEZING Last Admin: 01/06/19 06:28 Dose: 1 amp Albuterol/Ipratropium (Duoneb -) 1 amp NEB RQID JAYCE Last Admin: 01/07/19 12:30 Dose: 1 amp Artificial Tears (Artificial Tears) 1 drop OU TID PRN PRN Reason: DRY EYES Last Admin: 01/04/19 09:55 Dose: 1 drop Chlorhexidine Gluconate (Hibiclens For Decolonization -) 1 applic TP HS JAYCE Last Admin: 01/06/19 23:17 Dose: 1 applic Heparin Sodium (Porcine) (Heparin -) 1,000 unit IVPUSH PRN PRN PRN Reason: Heparin Heparin Sodium (Porcine) (Heparin -) 5,000 unit IVPUSH PRN PRN PRN Reason: Heparin Heparin Sodium/Dextrose (Heparin Infusion -) 25,000 units in 500 mls @ 20 mls/ hr IV TITR JAYCE; Protocol Last Admin: 01/06/19 12:20 Dose: 900 units/hr, 18 mls/hr Sodium Chloride (Normal Saline -) 250 mls @ 3,000 mls/hr IV PRN PRN PRN Reason: Hypotension during Dialysis Stop: 01/08/19 12:04 Rosuvastatin Calcium (Crestor -) 5 mg PO HS JAYCE Last Admin: 01/05/19 21:30 Dose: 5 mg Gen: Awake and alert, Mildly tachypneic at rest on HFOT Heart: RRR Lung: Bilateral coarse rhonchi/crackles Abd: soft, nontender Ext: + edema Laboratory Results - last 24 hr 01/02/19 01/06/19 01/07/19 05:30 09:40 05:30 WBC 3.9 L RBC 2.29 L Hgb 7.6 L Hct 22.0 L MCV 96.0 MCH 33.3 MCHC 34.7 RDW 16.4 H Plt Count 93 L MPV 7.7 Absolute Neuts (auto) 2.8 Neutrophils % 72.0 Lymphocytes % 9.5 D Monocytes % 15.5 H Eosinophils % 2.0 Basophils % 1.0 Nucleated RBC % 0 PTT (Actin FS) Sodium Potassium Chloride Carbon Dioxide Anion Gap BUN Creatinine Creat Clearance w eGFR Random Glucose Calcium Phosphorus Magnesium Total Bilirubin AST ALT Alkaline Phosphatase Total Protein Albumin c-ANCA <1:20 Proteinase 3 (PR3) <3.5 p-ANCA <1:20 Atypical p-ANCA <1:20 Myeloperoxidase Ab <9.0 Blood Type O POSITIVE Antibody Screen Negative Crossmatch See Detail 01/07/19 01/07/19 05:30 05:30 WBC RBC Hgb Hct MCV MCH MCHC RDW Plt Count MPV Absolute Neuts (auto) Neutrophils % Lymphocytes % Monocytes % Eosinophils % Basophils % Nucleated RBC % PTT (Actin FS) 59.5 H Sodium 137 Potassium 3.1 L Chloride 99 Carbon Dioxide 28 Anion Gap 11 BUN 47 H Creatinine 4.1 H Creat Clearance w eGFR 13.81 Random Glucose 92 Calcium 7.3 L Phosphorus 6.0 H Magnesium 2.2 Total Bilirubin 0.5 AST 27 ALT 19 Alkaline Phosphatase 71 Total Protein 5.7 L Albumin 2.8 L c-ANCA Proteinase 3 (PR3) p-ANCA Atypical p-ANCA Myeloperoxidase Ab Blood Type Antibody Screen Crossmatch ASSESSMENT AND PLAN: Acute Hypoxic Respiratory Failure Acute on Chronic Diastolic Heart Failure Volume Overload Atrial Fibrillation Acute on Chronic Renal Failure COPD Anemia Hypercholesterolemia - HD per Renal for volume removal - monitor urine output, creatinine - daily weights - Levophed drip if needed to maintain MAP>65 - O2 to keep SpO2 >90% - HFOT / BiPAP to assist in work of breathing - rate control - AC - ICU monitoring for tenuous hemodynamics and respiratory monitoring Dr Guevara critical care time spent in reviewing chart, evaluating patient and formulating plan 35 min
[2019-01-07] MEDS ORDERED: SODIUM CHLORIDE 250 ML IV PRN (15:09)
[2019-01-07] MEDS: ALBUMIN HUMAN 25% 100 ML VIAL IVPB SCH ×3 (15:15→17:00)
[2019-01-07] MEDS: HEPARIN INFUSION - 25,000 UNITS/500 ML INFUS.BAG IV SCH (17:17)
--- NOTE | 2019-01-07 17:28 | PN ---
Teaching Attending Note Name of Resident: Ernestina Hodges ATTENDING PHYSICIAN STATEMENT I saw and evaluated the patient. I reviewed the resident's note and discussed the case with the resident. I agree with the resident's findings and plan as documented. SUBJECTIVE: Mr Aleman says he is doing well. Says his breathing is ok. Denies cp or n/v. OBJECTIVE: Last Vital Signs Temp Pulse Resp BP Pulse Ox 37.1 C 62 18 101/43 L 100 01/07/19 14:20 01/07/19 17:00 01/07/19 17:00 01/07/19 17:00 01/07/19 09:00 Gen: nad Pulm: diffuse ronchi bilaterally CV: irreg irreg w/ 11/20 SOFIE Abd: +bs, s/nt/nd Ext: 1+ BLE edema, unchanged CBC, BMP 01/07/19 05:30 01/07/19 05:30 ASSESSMENT AND PLAN: (1) Acute on chronic diastolic (congestive) heart failure Assessment/Plan: -continue diuresis with HD -HD today, tolerating -appreciate cardiology assistance Code(s): I50.33 - ACUTE ON CHRONIC DIASTOLIC (CONGESTIVE) HEART FAILURE (2) Eqrot-or-edmwfmc kidney injury Assessment/Plan: -continue HD -case d/w Dr Montgomery Code(s): N17.9 - ACUTE KIDNEY FAILURE, UNSPECIFIED; N18.9 - CHRONIC KIDNEY DISEASE, UNSPECIFIED Qualifiers: Acute renal failure type: unspecified Chronic kidney disease stage: unspecified stage Qualified Code(s): N17.9 - Acute kidney failure, unspecified ; N18.9 - Chronic kidney disease, unspecified (3) Warfarin toxicity Assessment/Plan: -on heparin gtt currently Code(s): T45.511A - POISONING BY ANTICOAGULANTS, ACCIDENTAL, INIT (4) CAD (coronary artery disease) Assessment/Plan: -quiescent -cardiology following Code(s): I25.10 - ATHSCL HEART DISEASE OF [place] CORONARY ARTERY W/O ANG PCTRS Qualifiers: Coronary Disease-Associated Artery/Lesion type: [place] artery [place] vs. transplanted heart: [place] heart Associated angina: without angina Qualified Code(s): I25.10 - Atherosclerotic heart disease of [place] coronary artery without angina pectoris (5) COPD (chronic obstructive pulmonary disease) Assessment/Plan: -not in exacerbation -pulmonary following Code(s): J44.9 - CHRONIC OBSTRUCTIVE PULMONARY DISEASE, UNSPECIFIED Qualifiers: COPD type: unspecified COPD Qualified Code(s): J44.9 - Chronic obstructive pulmonary disease, unspecified (6) Chronic anemia Assessment/Plan: -transfuse 1 unit today Code(s): D64.9 - ANEMIA, UNSPECIFIED (7) HTN (hypertension) Assessment/Plan: -well controlled Code(s): I10 - ESSENTIAL (PRIMARY) HYPERTENSION Qualifiers: Hypertension type: essential hypertension Qualified Code(s): I10 - Essential (primary) hypertension (8) Pulmonary hypertension Assessment/Plan: -noted Code(s): I27.2 - OTHER SECONDARY PULMONARY HYPERTENSION * DO NOT USE * (9) Atrial fibrillation Assessment/Plan: -history of bradycardia and planning for pacemaker prior to admission -anticoagulation with heparin gtt Code(s): I48.91 - UNSPECIFIED ATRIAL FIBRILLATION Qualifiers: Atrial fibrillation type: permanent Qualified Code(s): I48.2 - Chronic atrial fibrillation (10) Hyperlipidemia Assessment/Plan: -crestor Code(s): E78.5 - HYPERLIPIDEMIA, UNSPECIFIED Qualifiers: Hyperlipidemia type: pure hypercholesterolemia Qualified Code(s): E78.00 - Pure hypercholesterolemia, unspecified; E78.0 - Pure hypercholesterolemia (11) UTI -s/p full course of rocephin Problem List - Problems (1) Acute on chronic diastolic (congestive) heart failure Code(s): I50.33 - ACUTE ON CHRONIC DIASTOLIC (CONGESTIVE) HEART FAILURE (2) Uxhvr-jn-ydekmgr kidney injury Code(s): N17.9 - ACUTE KIDNEY FAILURE, UNSPECIFIED; N18.9 - CHRONIC KIDNEY DISEASE, UNSPECIFIED Qualifiers: Acute renal failure type: unspecified Chronic kidney disease stage: unspecified stage Qualified Code(s): N17.9 - Acute kidney failure, unspecified ; N18.9 - Chronic kidney disease, unspecified (3) Warfarin toxicity Code(s): T45.511A - POISONING BY ANTICOAGULANTS, ACCIDENTAL, INIT (4) CAD (coronary artery disease) Code(s): I25.10 - ATHSCL HEART DISEASE OF [place] CORONARY ARTERY W/O ANG PCTRS Qualifiers: Coronary Disease-Associated Artery/Lesion type: [place] artery [place] vs. transplanted heart: [place] heart Associated angina: without angina Qualified Code(s): I25.10 - Atherosclerotic heart disease of [place] coronary artery without angina pectoris (5) COPD (chronic obstructive pulmonary disease) Code(s): J44.9 - CHRONIC OBSTRUCTIVE PULMONARY DISEASE, UNSPECIFIED Qualifiers: COPD type: unspecified COPD Qualified Code(s): J44.9 - Chronic obstructive pulmonary disease, unspecified (6) Chronic anemia Code(s): D64.9 - ANEMIA, UNSPECIFIED (7) HTN (hypertension) Code(s): I10 - ESSENTIAL (PRIMARY) HYPERTENSION Qualifiers: Hypertension type: essential hypertension Qualified Code(s): I10 - Essential (primary) hypertension (8) Pulmonary hypertension Code(s): I27.2 - OTHER SECONDARY PULMONARY HYPERTENSION * DO NOT USE * (9) Atrial fibrillation Code(s): I48.91 - UNSPECIFIED ATRIAL FIBRILLATION Qualifiers: Atrial fibrillation type: permanent Qualified Code(s): I48.2 - Chronic atrial fibrillation (10) Hyperlipidemia Code(s): E78.5 - HYPERLIPIDEMIA, UNSPECIFIED Qualifiers: Hyperlipidemia type: pure hypercholesterolemia Qualified Code(s): E78.00 - Pure hypercholesterolemia, unspecified; E78.0 - Pure hypercholesterolemia
--- NOTE | 2019-01-07 18:27 | PN ---
Physical Exam: SUBJECTIVE: Patient seen and examined; SOB; HD today ; 1 UPRBC ordered OBJECTIVE: Vital Signs Period Temp Pulse Resp BP Sys/Ascencio Pulse Ox Last 24 Hr 98.2 F-98.8 F 46-95 18-26 89-107/43-71 98-100 GENERAL: The patient is awake, alert, and fully oriented, in no acute distress. LUNGS:decreased breath sounds HEART: Regular rate and rhythm, S1, S2 without murmur, rub or gallop. ABDOMEN: Soft, nontender, nondistended, normoactive bowel sounds, no guarding, no rebound, no hepatosplenomegaly, no masses. EXTREMITIES: 2+ pulses, warm, well-perfused, + edema. NEUROLOGICAL: Cranial nerves II through XII grossly intact. Normal speech, gait not observed. PSYCH: Normal mood, normal affect. SKIN: Warm, dry, normal turgor, no rashes or lesions noted Laboratory Results - last 24 hr 01/06/19 01/07/19 01/07/19 09:40 05:30 05:30 WBC 3.9 L RBC 2.29 L Hgb 7.6 L Hct 22.0 L MCV 96.0 MCH 33.3 MCHC 34.7 RDW 16.4 H Plt Count 93 L MPV 7.7 Absolute Neuts (auto) 2.8 Neutrophils % 72.0 Lymphocytes % 9.5 D Monocytes % 15.5 H Eosinophils % 2.0 Basophils % 1.0 Nucleated RBC % 0 PTT (Actin FS) Sodium 137 Potassium 3.1 L Chloride 99 Carbon Dioxide 28 Anion Gap 11 BUN 47 H Creatinine 4.1 H Creat Clearance w eGFR 13.81 Random Glucose 92 Calcium 7.3 L Phosphorus 6.0 H Magnesium 2.2 Total Bilirubin 0.5 AST 27 ALT 19 Alkaline Phosphatase 71 Total Protein 5.7 L Albumin 2.8 L Blood Type O POSITIVE Antibody Screen Negative Crossmatch See Detail 01/07/19 05:30 WBC RBC Hgb Hct MCV MCH MCHC RDW Plt Count MPV Absolute Neuts (auto) Neutrophils % Lymphocytes % Monocytes % Eosinophils % Basophils % Nucleated RBC % PTT (Actin FS) 59.5 H Sodium Potassium Chloride Carbon Dioxide Anion Gap BUN Creatinine Creat Clearance w eGFR Random Glucose Calcium Phosphorus Magnesium Total Bilirubin AST ALT Alkaline Phosphatase Total Protein Albumin Blood Type Antibody Screen Crossmatch Active Medications Generic Name Dose Route Start Last Admin Trade Name Freq PRN Reason Stop Dose Admin Albuterol Sulfate 1 amp 01/02/19 20:36 01/06/19 06:28 Ventolin 0.083% Nebulizer Soln - NEB 1 amp Q6H PRN Administration SHORT OF BREATH/WHEEZING Albuterol/Ipratropium 1 amp 01/03/19 08:00 01/07/19 16:15 Duoneb - NEB 1 amp RQID JAYCE Administration Artificial Tears 1 drop 01/02/19 14:09 01/04/19 09:55 Artificial Tears OU 1 drop TID PRN Administration DRY EYES Chlorhexidine Gluconate 1 applic 12/31/18 22:00 01/06/19 23:17 Hibiclens For Decolonization - TP 1 applic HS JAYCE Administration Heparin Sodium (Porcine) 1,000 unit 01/03/19 11:54 Heparin - IVPUSH PRN PRN Heparin Heparin Sodium (Porcine) 5,000 unit 01/03/19 11:54 Heparin - IVPUSH PRN PRN Heparin Heparin Sodium/Dextrose 25,000 units in 500 mls @ 20 mls/hr 01/03/19 12:00 17:17 Heparin Infusion - IV 900 units/hr TITR JAYCE 18 mls/hr Administration Protocol 1,000 UNITS/HR Sodium Chloride 250 mls @ 3,000 mls/hr 01/07/19 15:09 Normal Saline - IV 01/08/19 15:08 PRN PRN Hypotension during Dialysis Rosuvastatin Calcium 5 mg 01/02/19 22:00 01/05/19 21:30 Crestor - PO 5 mg HS JAYCE Administration ASSESSMENT/PLAN: This is a 88 year old male with a history of CAD s/p CABG, s/p PCI/LUIS EDUARDO , persistnat atrial fibrillation, diastolic congestive heart failure, HTN, carotid stenosis who presented with worsening SON, orthopnea, b/l leg edema, found to be in acute heart failure. #Acute on chronic diastolic heart failure -daily weights, strict I/Os; christina in place -cardio , renal -HD #Acute hypoxic respiratory failure - sec to vol overload; on BiPAP prn #Atrial fibrillation with warfarin toxicity -rate controlled -on heparin ggt #Acute on chronic kidney disease -HD started -cardio; renal vs sec to hypotension; -urine lytes -stirct i/os -ua, uc #Macrocytic Anemia; monitor for acute bleed; FOBT: on hep drip -check b12, folate, tsh; iron stores -iron studies were low; need for venofer/ epogen -s/p 1UPRBC today; rech cbc #thrombocytopenia: -monitor platelets for HIT on heparin drip -abdominal US r/o hepatosplenomegaly #hypokalemia; replace #hyperphosphetema; sec renal failure -hd; phos lo #UTI: -completed antibiotics course #COPD -; cont IH bronchodilators #HTN -hold home meds; currently hypotensive on dopamine #HLD -statin Diet npo while on bIpap Visit type - Emergency Visit Emergency Visit: Yes ED Registration Date: 12/30/18 Care time: The patient presented to the Emergency Department on the above date and was hospitalized for further evaluation of their emergent condition. - New Patient This patient is new to me today: No - Critical Care Critical Care patient: Yes Total Critical Care Time (in minutes): 40 Critical Care Statement: The care of this patient involved high complexity decision making to prevent further life threatening deterioration of the patient 's condition and/or to evaluate & treat vital organ system(s) failure or risk of failure.
[2019-01-07] MEDS ORDERED: PT OWN MED DRAWER 7, Y5N ONE (21:21)
[2019-01-07] MEDS: ROSUVASTATIN CA 5 MG TABLET (FP) PO SCH (21:30)
[2019-01-08] MEDS: CHLORHEXIDINE GLUCONATE 4% CLEANSER FOR DECOLONIZATION TP SCH ×2 (00:30→22:04)
[2019-01-08 06:53] LABS: HEMATOCRIT 25.3 % (35.4-49); HEMOGLOBIN 8.7 GM/dL (11.7-16.9); MCH 32.9 pg (25.7-33.7); MCHC 34.4 g/dl (32.0-35.9); MEAN CELL VOLUME 95.6 fl (80-96); MEAN PLT VOLUME 7.7 fl (7.5-11.1); PLATELET COUNT 98 K/MM3 (134-434); RBC 2.65 M/mm3 (4.00-5.60); RDW 16.9 % (11.9-15.9); WHITE BLOOD COUNT 3.7 K/mm3 (4.0-10.0)
[2019-01-08 07:54] LABS: ANION GAP 8 MMOL/L (8-16); BLOOD UREA NITROGEN 33 mg/dL (7-18); CALCIUM 7.7 mg/dL (8.5-10.1); CHLORIDE 102 mmol/L (98-107); CO2 29 mmol/L (21-32); CREATININE 3.5 mg/dL (0.55-1.3); GLUCOSE,RANDOM 94 mg/dL (74-106); MAGNESIUM 1.7 mg/dL (1.8-2.4); PHOSPHOROUS 4.5 mg/dL (2.5-4.9); POTASSIUM 3.2 mmol/L (3.5-5.1); SODIUM 139 mmol/L (136-145)
[2019-01-08] MEDS ORDERED: MAGNESIUM SULF 50% (8.12 MEQ/2 ML-1 GM VIAL) IVPB ONE (08:02)
--- NOTE | 2019-01-08 08:54 | PN ---
Physical Exam: SUBJECTIVE: Patient seen and examined this AM. He states he did well overnight and is tolerating the High Flow O2 much better than the bilevel ventilation OBJECTIVE: Vital Signs Period Temp Pulse Resp BP Sys/Ascencio Pulse Ox Last 24 Hr 98.2 F-98.8 F 46-98 18-26 92-114/43-71 98-100 GEN: A&O, no acute distress HEENT: PERRL, moist mucus membranes NECK: Supple, no lymphadenopathy, Left IJ removed. HEART: RRR, no murmurs noted LUNGS: diffuse rhonchi/crackles/wheezes, decreased breath sounds diffusely ABDOMEN: Soft, nontender, normoactive bowel sounds EXTREMITIES: 2+ edema in b/l LE, no calf tenderness noted Laboratory Results - last 24 hr 01/06/19 01/08/19 01/08/19 09:40 05:30 05:30 WBC 3.7 L RBC 2.65 L Hgb 8.7 L Hct 25.3 L MCV 95.6 MCH 32.9 MCHC 34.4 RDW 16.9 H Plt Count 98 L MPV 7.7 Sodium 139 Potassium 3.2 L Chloride 102 Carbon Dioxide 29 Anion Gap 8 BUN 33 H Creatinine 3.5 H Creat Clearance w eGFR 16.57 Random Glucose 94 Calcium 7.7 L Phosphorus 4.5 Magnesium 1.7 L Vitamin B12 561 Serum Folate 12 Blood Type O POSITIVE Antibody Screen Negative Crossmatch See Detail Active Medications Generic Name Dose Route Start Last Admin Trade Name Freq PRN Reason Stop Dose Admin Artificial Tears 1 drop 01/02/19 14:09 01/04/19 09:55 Artificial Tears OU 1 drop TID PRN Administration DRY EYES Chlorhexidine Gluconate 1 applic 12/31/18 22:00 01/08/19 00:30 Hibiclens For Decolonization - TP 1 applic HS JAYCE Administration Heparin Sodium (Porcine) 1,000 unit 01/03/19 11:54 Heparin - IVPUSH PRN PRN Heparin Heparin Sodium (Porcine) 5,000 unit 01/03/19 11:54 Heparin - IVPUSH PRN PRN Heparin Heparin Sodium/Dextrose 25,000 units in 500 mls @ 20 mls/hr 01/03/19 12:00 17:17 Heparin Infusion - IV 900 units/hr TITR JAYCE 18 mls/hr Administration Protocol 1,000 UNITS/HR Sodium Chloride 250 mls @ 3,000 mls/hr 01/07/19 15:09 Normal Saline - IV 01/08/19 15:08 PRN PRN Hypotension during Dialysis Rosuvastatin Calcium 5 mg 01/02/19 22:00 01/07/19 21:30 Crestor - PO 5 mg HS JAYCE Administration ASSESSMENT/PLAN: Patient is an 88 year old male who presented for worsening shortness of breath and was found to have CHF exacerbation with hypotension. Patient admitted to ICU for further monitoring and management. 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 -Likely Cardio-Renal Syndrome -Repeat ECHO with normal EF, dilated RV and RA -Off pressors -Ranexa 500 bid -Low sodium diet -Lester placed for strict I&O's -Daily weights #Permanent atrial fibrillation -[id number] -Patient on Warfarin at home, INR improved -Heparin drip for now #CAD s/p CABG -s/p PCI/LUIS EDUARDO to LAD -Continue BB, ASA, and Rosuvastatin -Maintain Hgb > 8 #HTN -Hold anti-htn medications as patient is hypotensive -Currently off Norepinephrine, continue to monitor MAPs #HLD -Continue home Crestor NEPHROLOGY #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 -Likely ATN -Baseline around 1.5 -Kidney/Bladder U/S without signs of obstruction -Avoid nephrotoxic medications -Renally dose medications -Will hold CAROLYN/ARB for now -Nephrology consult appreciated -Monitor BMP -Requiring dialysis for volume removal, repeat HD scheduled today INFECTIOUS DISEASE #UTI -QSOFA Score= 2 -U/A positive with LE 2+ and >100 Urine WBC -Completed course of Rocephin -Urine culture grew Enterococcus HEMATOLOGY #Supratherapeutic INR - resolved -Improved, Heparin drip in lieu of warfarin for now #Macrocytic Anemia -With possible superimposed chronic anemia -Renal consult appreciated -Continue to monitor CBC -Iron studies normal F/E/N -None -HyperPhos. Continue to monitor -Sodium controlled diet Prophylaxis -SCD's, Heparin Drip -No GI required LINES -Shiley placed on 01/04, remove today after dialysis, can place Trialysis as needed for further dialysis/access Disposition -Full code -Monitor in ICU on High Flow O2 Visit type - Emergency Visit Emergency Visit: Yes ED Registration Date: 12/30/18 Care time: The patient presented to the Emergency Department on the above date and was hospitalized for further evaluation of their emergent condition. - New Patient This patient is new to me today: No - Critical Care Critical Care patient: Yes Total Critical Care Time (in minutes): 40 Critical Care Statement: The care of this patient involved high complexity decision making to prevent further life threatening deterioration of the patient 's condition and/or to evaluate & treat vital organ system(s) failure or risk of failure.
--- NOTE | 2019-01-08 12:23 | CONSULT ---
Admitting History and Physical - Primary Care Physician PCP: Nikko Shaw - Admission History of Present Illness: This is a 88 year old male with a history of CAD s/p CABG, s/p PCI/LUIS EDUARDO , persistnat atrial fibrillation, diastolic congestive heart failure, HTN, carotid stenosis who presented with worsening SON, orthopnea, b/l leg edema, found to be in acute heart failure. Asked to evaluate for possible aspiration. Selected Entries 01/07/19 01/07/19 01/07/19 09:26 10:00 14:00 Breakfast 50% Lunch Supper Temperature 98.7 F 98.4 F 01/07/19 01/07/19 01/07/19 14:20 14:25 17:45 Breakfast Lunch 50% Supper Temperature 98.8 F 98.2 F 01/07/19 01/07/19 01/07/19 18:00 18:15 19:45 Breakfast Lunch Supper 25% Temperature 98.6 F 98.6 F 01/07/19 01/08/19 01/08/19 22:00 01:49 10:00 Breakfast Lunch Supper Temperature 98.6 F 98.4 F 98.3 F Laboratory Tests 01/08/19 05:30 WBC 3.7 L History Source: Patient, Family Member Limitations to Obtaining History: No Limitations - Past Medical History Cardiovascular: Yes: AFIB, CAD, CHF, HTN, Hyperlipdemia Renal/: Yes: Renal Inusuff Musculoskeletal: Yes: Other (spinal stenosis) - Past Surgical History Past Surgical History: Yes: CABG, Colectomy, Hernia Repair, Joint Replacement (b /l hip replacement ORIF right arm), Stent - Advance Directives Advance Directives: Yes: MOLST - Smoking History Smoking history: Former smoker Have you smoked in the past 12 months: No Aproximately how many cigarettes per day: 0 If you are a former smoker, when did you quit?: 25YR - Alcohol/Substance Use Hx Alcohol Use: No History of Substance Use: reports: None - Social History ADL: Independent History of Recent Travel: No History - Admission Reason For Visit: ACUTE ON CHRONIC DIASTROLIC CONGESTIVE HEEART FAIL - Diagnostics X-ray: Report Reviewed - General Mental Status: Alert and Oriented, Awake and Alert, Able to Follow Commands Attention: Intact Ability to Follow Directions: Good Head/Neck Control: Good - Hearing Hearing: Normal Speech Evaluation - Communication Primary Language: ITALIAN Communication: Yes: Within Normal Limits Oral Expression Ability: Yes: No Impairment - Speech Production Able to Make Needs Known: Yes: WNL Intelligibility: Yes: WNL - Speech Characteristics Voice Loudness: Mildly Soft/Quiet Voice Pitch: Yes: Normal Voice Phonatory-based Quality: Yes: Dysphonia (mild, weak) Speech Pattern: Normal Speech Clarity: < 100% Nasal Resonance: Normal Articulation: Yes: Precise - Language/Auditory Comprehension Follows: Yes: 1 Stage Simple Commands - Language/Verbal Expression Able to Respond to Simple Queries: Yes: WNL Able to Communicate Wants and Needs: Yes: WNL Functional Communication Status: Yes: WNL - Swallow Evaluation/Bedside Assessment Current Nutritional Intake: Regular, Thin Liquids Dentition: Yes: Adequate Facial Symmetry at Rest: Symmetrical Facial Symmetry on Retraction: Symmetrical Facial Movement: Controlled Sensation: Normal Against Resistance Opening: Normal Against Resistance Closing: Normal Pucker Lips: Normal Smile: Normal Lingual Movement: Normal, Symmetric Lingual Speed of Movement: Normal Lingual Movement Strgth Against Opposition: Normal Lingual Movement Characteristics: Normal Velopharyngeal Movement: Normal Laryngeal Movement: Able to Palpate Rate of Intake: Slow/Holding Bolus Size: Small Labial Seal: WFL Chewing: Impaired (labored, possibly sec SOB,) Oral Prep Time: Increased Pocketing: Present Bilaterally (takes time to clear) Coughing/Throat Clear: Yes (with and without PO trials) Recommendations - Speech Evaluation, Impression/Plan Impression: On high-sheryl.Increased RR with chewing/swallowing. Limited appetite. Cough with and without po trials. Not clearly demonstrating signs of aspiration. - Dysphagia Impressions/Plan Dysphagia Impressions: Ongoing Evaluation *Silent aspiration: cannot be R/O at bedside Dysphagia Treatment Plan: Small Bites, Chin Tuck/Down, Safe Rate, 1/2 tsp. at a time, Other (alternate solids with liquids) Recommendations: Modified Barium Swallow (only if aspiration is suspected) - Recommendations Diet Consistency: Regular (soft, easy to chew, pt preferences) Liquids: Thin Liquids Supplement: Ensure, Magic Cup, Ensure Pudding, Other (per RD)
[2019-01-08] MEDS ORDERED: SODIUM CHLORIDE 250 ML IV PRN (12:52)
--- NOTE | 2019-01-08 12:52 | PN ---
Progress Note, Physician History of Present Illness: Pt seen and examined at bedside. He still has shortness of breath. He denies chest pain. - Current Medication List Current Medications: Active Medications Artificial Tears (Artificial Tears) 1 drop OU TID PRN PRN Reason: DRY EYES Last Admin: 01/04/19 09:55 Dose: 1 drop Chlorhexidine Gluconate (Hibiclens For Decolonization -) 1 applic TP HS JAYCE Last Admin: 01/08/19 00:30 Dose: 1 applic Heparin Sodium (Porcine) (Heparin -) 1,000 unit IVPUSH PRN PRN PRN Reason: Heparin Heparin Sodium (Porcine) (Heparin -) 5,000 unit IVPUSH PRN PRN PRN Reason: Heparin Heparin Sodium/Dextrose (Heparin Infusion -) 25,000 units in 500 mls @ 20 mls/ hr IV TITR JAYCE; Protocol Last Admin: 01/07/19 17:17 Dose: 900 units/hr, 18 mls/hr Sodium Chloride (Normal Saline -) 250 mls @ 3,000 mls/hr IV PRN PRN PRN Reason: Hypotension during Dialysis Stop: 01/08/19 15:08 Rosuvastatin Calcium (Crestor -) 5 mg PO HS JAYCE Last Admin: 01/07/19 21:30 Dose: 5 mg - Objective Vital Signs: Vital Signs Temperature 98.3 F 01/08/19 10:00 Pulse Rate 66 01/08/19 12:00 Respiratory Rate 20 01/08/19 12:00 Blood Pressure 115/51 L 01/08/19 12:00 O2 Sat by Pulse Oximetry (%) 100 01/07/19 22:03 Constitutional: Yes: Calm Eyes: Yes: Conjunctiva Clear HENT: Yes: Atraumatic Cardiovascular: Yes: S1, S2 Respiratory: Yes: Other (on high flow oxygen, rhonchi) Gastrointestinal: Yes: Soft Genitourinary: Yes: Lester Present, Oliguria Musculoskeletal: Yes: Muscle Weakness Edema: Yes Edema: LLE: 1+, RLE: 1+ Integumentary: Yes: Venous Stasis Changes Neurological: Yes: Oriented Psychiatric: Yes: Oriented Labs: CBC, BMP 01/08/19 05:30 01/08/19 05:30 INR, PTT INR 1.93 (0.83-1.09) H 01/03/19 05:30 - ....Imaging Chest X-ray: Report Reviewed Problem List - Problems (1) [id number] kidney injury Code(s): N17.9 - ACUTE KIDNEY FAILURE, UNSPECIFIED; N18.9 - CHRONIC KIDNEY DISEASE, UNSPECIFIED Qualifiers: Acute renal failure type: unspecified Chronic kidney disease stage: unspecified stage Qualified Code(s): N17.9 - Acute kidney failure, unspecified ; N18.9 - Chronic kidney disease, unspecified (2) Congestive heart failure Code(s): I50.9 - HEART FAILURE, UNSPECIFIED Qualifiers: Heart failure type: unspecified Heart failure chronicity: acute on chronic Qualified Code(s): I50.9 - Heart failure, unspecified Assessment/Plan Current Medications Generic Name Dose Route Start Last Admin Trade Name Freq PRN Reason Stop Dose Admin Artificial Tears 1 drop 01/02/19 14:09 01/04/19 09:55 Artificial Tears OU 1 drop TID PRN Administration DRY EYES Chlorhexidine Gluconate 1 applic 12/31/18 22:00 01/08/19 00:30 Hibiclens For Decolonization - TP 1 applic HS JAYCE Administration Heparin Sodium (Porcine) 1,000 unit 01/03/19 11:54 Heparin - IVPUSH PRN PRN Heparin Heparin Sodium (Porcine) 5,000 unit 01/03/19 11:54 Heparin - IVPUSH PRN PRN Heparin Heparin Sodium/Dextrose 25,000 units in 500 mls @ 20 mls/hr 01/03/19 12:00 17:17 Heparin Infusion - IV 900 units/hr TITR JAYCE 18 mls/hr Administration Protocol 1,000 UNITS/HR Sodium Chloride 250 mls @ 3,000 mls/hr 01/07/19 15:09 Normal Saline - IV 01/08/19 15:08 PRN PRN Hypotension during Dialysis Rosuvastatin Calcium 5 mg 01/02/19 22:00 01/07/19 21:30 Crestor - PO 5 mg HS JAYCE Administration Impression 1. ANGELA 2. CKD 3. CHF 4. hypotension 5. resp failure requiring bipap 6. a-fib 7. hld 8. bilateral pleural effusions 9. anemia Plan - will arrange HD for UF today as aubrey was not taken out - d/c aubrey after HD - discussed with ICU team - daily cxr - monitor urine output - monitor lytes - pt likely has ATN - monitor pulse ox - avoid nsaids - prognosis guarded
--- NOTE | 2019-01-08 13:28 | PN ---
Teaching Attending Note Name of Resident: Venancio Combs ATTENDING PHYSICIAN STATEMENT I saw and evaluated the patient. I reviewed the resident's note and discussed the case with the resident. I agree with the resident's findings and plan as documented. SUBJECTIVE: Pt seen and examined in the ICU. Remains on HFOT 40L/min, 40% FiO2. States breathing about the same. Slightly increased urine output yesterday. OBJECTIVE: Vital Signs Period Temp Pulse Resp BP Sys/Ascencio Pulse Ox Last 24 Hr 98.2 F-98.8 F 46-78 18- 93-115/43-71 98-100 Intake & Output 01/05/19 01/06/19 01/07/19 01/08/19 23:59 23:59 23:59 23:59 Intake Total 792 416 778 176 Output Total 135 100 200 Balance 657 316 578 176 Weight 98 kg 98 kg 92.8 kg 91.172 kg Gen: mildly tachypneic on HFOT Heart: RRR Lung: scattered rhonchi Abd: soft, nontender Ext: + edema CBC, BMP 01/08/19 05:30 01/08/19 05:30 Active Medications Artificial Tears (Artificial Tears) 1 drop OU TID PRN PRN Reason: DRY EYES Last Admin: 01/04/19 09:55 Dose: 1 drop Chlorhexidine Gluconate (Hibiclens For Decolonization -) 1 applic TP HS JAYCE Last Admin: 01/08/19 00:30 Dose: 1 applic Heparin Sodium (Porcine) (Heparin -) 1,000 unit IVPUSH PRN PRN PRN Reason: Heparin Heparin Sodium (Porcine) (Heparin -) 5,000 unit IVPUSH PRN PRN PRN Reason: Heparin Heparin Sodium/Dextrose (Heparin Infusion -) 25,000 units in 500 mls @ 20 mls/ hr IV TITR JAYCE; Protocol Last Admin: 01/07/19 17:17 Dose: 900 units/hr, 18 mls/hr Sodium Chloride (Normal Saline -) 250 mls @ 3,000 mls/hr IV PRN PRN PRN Reason: Hypotension during Dialysis Stop: 01/08/19 15:08 Sodium Chloride (Normal Saline -) 250 mls @ 3,000 mls/hr IV PRN PRN PRN Reason: Hypotension during Dialysis Stop: 01/09/19 12:52 Rosuvastatin Calcium (Crestor -) 5 mg PO HS [facility] Last Admin: 01/07/19 21:30 Dose: 5 mg ASSESSMENT AND PLAN: Acute Hypoxic Respiratory Failure Acute on Chronic Diastolic Heart Failure Volume Overload Atrial Fibrillation Acute on Chronic Renal Failure requiring HD COPD Anemia Hypercholesterolemia - HD per renal with ultrafiltration - monitor urine output, creatinine - daily weights - off pressors, maintain MAP>65 - titrate HFOT to keep SpO2 >90% - rate control - continue anticoagulation - ICU monitoring critical care time spent in reviewing chart, evaluating patient and formulating plan 35 min
--- NOTE | 2019-01-08 16:47 | PN ---
Teaching Attending Note Name of Resident: Ernestina Hodges ATTENDING PHYSICIAN STATEMENT I saw and evaluated the patient. I reviewed the resident's note and discussed the case with the resident. I agree with the resident's findings and plan as documented with exceptions below. SUBJECTIVE: Patient seen and examined. Breathing with some improvement. Denies any dizziness , chest pain or pressure, abdominal pain. reports minimal urination. OBJECTIVE: Vital Signs Period Temp Pulse Resp BP Sys/Ascencio Pulse Ox Last 24 Hr 98.2 F-98.6 F 59-78 18-26 93-115/43-67 95-100 Intake & Output 01/05/19 01/06/19 01/07/19 01/08/19 23:59 23:59 23:59 23:59 Intake Total 792 416 778 176 Output Total 135 100 200 Balance 657 316 578 176 Weight 216 lb 0.848 oz 216 lb 0.848 oz 204 lb 9.423 oz 201 lb General: sitting in bed on high flow oxygen, midl respiratory distress, able to speak in full sentences Neck: soft, supple, neck vein distension CVS:S1S2 irregularly irregular ABdomen:Soft, obese, NT Extremities:1+ pedal pitting edema Telemetry 27 beats Sustained Vtach Home Medications Medication Instructions Recorded Ranolazine [Ranexa -] 500 mg PO BID 03/22/12 Cholecalciferol (Vitamin D3) 2,000 unit PO DAILY 03/13/18 [Vitamin D -] Vit A/Vit C/Vit E/Zinc/Copper 1 each PO DAILY 03/13/18 [Preservision Areds Tablet] Metoprolol Succinate [Toprol Xl] 25 mg PO DAILY 03/18/18 Losartan Potassium [Cozaar -] 25 mg PO DAILY tablet 10/06/18 Warfarin Sodium 5 mg PO HS 30 Days #30 tablet 10/06/18 Allopurinol [Zyloprim -] 150 mg PO DAILY 12/30/18 Furosemide [Lasix] 40 mg PO DAILY 12/30/18 Rosuvastatin [Crestor -] 3 mg PO HS 12/30/18 Active Medications Artificial Tears (Artificial Tears) 1 drop OU TID PRN PRN Reason: DRY EYES Last Admin: 01/04/19 09:55 Dose: 1 drop Chlorhexidine Gluconate (Hibiclens For Decolonization -) 1 applic TP HS [facility] Last Admin: 01/08/19 00:30 Dose: 1 applic Heparin Sodium (Porcine) (Heparin -) 1,000 unit IVPUSH PRN PRN PRN Reason: Heparin Heparin Sodium (Porcine) (Heparin -) 5,000 unit IVPUSH PRN PRN PRN Reason: Heparin Heparin Sodium/Dextrose (Heparin Infusion -) 25,000 units in 500 mls @ 20 mls/ hr IV TITR JAYCE; Protocol Last Admin: 01/07/19 17:17 Dose: 900 units/hr, 18 mls/hr Sodium Chloride (Normal Saline -) 250 mls @ 3,000 mls/hr IV PRN PRN PRN Reason: Hypotension during Dialysis Stop: 01/09/19 12:52 Rosuvastatin Calcium (Crestor -) 5 mg PO [facility] Last Admin: 01/07/19 21:30 Dose: 5 mg Laboratory Results - last 24 hr 01/08/19 01/08/19 01/08/19 05:30 05:30 09:55 WBC 3.7 L RBC 2.65 L Hgb 8.7 L Hct 25.3 L MCV 95.6 MCH 32.9 MCHC 34.4 RDW 16.9 H Plt Count 98 L MPV 7.7 PTT (Actin FS) 60.7 H Sodium 139 Potassium 3.2 L Chloride 102 Carbon Dioxide 29 Anion Gap 8 BUN 33 H Creatinine 3.5 H Creat Clearance w eGFR 16.57 Random Glucose 94 Calcium 7.7 L Phosphorus 4.5 Magnesium 1.7 L Vitamin B12 561 Serum Folate 12 Microbiology 12/31/18 12:00 Urine - Urine Lester Urine Culture - Final Enterococcus Faecalis ASSESSMENT AND PLAN: 88 yom CAD s/p CABG (JHAVERI to mLAD, SVG to RPDA), s/p PCI/LUIS EDUARDO to LAD, persistent AF on Coumadin, diastolic dysfunction with h/o failure, HTN, hypercholesterolemia and carotid stenosis, 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 -Acute on chronic diastolic+/- systolic heart failure exacerbation (prior on lasix drip, now on HD) -Acute hypoxic repiratory failure -Cardiogenic shock off pressors (Prior on dobutamine then levophed drip_ -Hypotension suspect cardiogenic -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, suspect cardiorenal from CHF -Perisistent Atrial fibrillation on coumadin -Anemia, suspect multifactorial from renal disease, blood draws, monitor for occult bleed -Coumadin coagulopathy -CAD s/p CABG (JHAVERI to mLAD, SVG to RPDA), s/p PCI/LUIS EDUARDO to LAD -HTN -HLD -Carotid stenosis PLan: HD per renal, fluid removal as tolerated Telemetry with 27 beats vtach. Discuss with cardiology if should challenge with low dose beta mukesh as tolerated. Ischemic w/u per cardiology Heparin drip. High flow oxygen SHiley to be removed after HD today. ?Permacath, follow up with renal. Crestor. Resume ranexa as able. s/p 1 unit PRBC, monitor. DVTPPX heparin drip Prognosis guarded. Dispo ICU level of care. PLan discussed with patient. Care co-ordinated with ICU/cardiology. Total critical care time spent 36 min.
--- NOTE | 2019-01-08 16:48 | PN ---
Progress Note, Physician History of Present Illness: Undergoing HD on HFO2, hemodynamics stable off pressors. - Current Medication List Current Medications: Active Medications Artificial Tears (Artificial Tears) 1 drop OU TID PRN PRN Reason: DRY EYES Last Admin: 01/04/19 09:55 Dose: 1 drop Chlorhexidine Gluconate (Hibiclens For Decolonization -) 1 applic TP HS JAYCE Last Admin: 01/08/19 00:30 Dose: 1 applic Heparin Sodium (Porcine) (Heparin -) 1,000 unit IVPUSH PRN PRN PRN Reason: Heparin Heparin Sodium (Porcine) (Heparin -) 5,000 unit IVPUSH PRN PRN PRN Reason: Heparin Heparin Sodium/Dextrose (Heparin Infusion -) 25,000 units in 500 mls @ 20 mls/ hr IV TITR JAYCE; Protocol Last Admin: 01/07/19 17:17 Dose: 900 units/hr, 18 mls/hr Sodium Chloride (Normal Saline -) 250 mls @ 3,000 mls/hr IV PRN PRN PRN Reason: Hypotension during Dialysis Stop: 01/09/19 12:52 Rosuvastatin Calcium (Crestor -) 5 mg PO HS JAYCE Last Admin: 01/07/19 21:30 Dose: 5 mg - Objective Vital Signs: Vital Signs Temperature 98.4 F 01/08/19 13:45 Pulse Rate 63 01/08/19 16:20 Respiratory Rate 26 H 01/08/19 16:20 Blood Pressure 94/57 L 01/08/19 16:20 O2 Sat by Pulse Oximetry (%) 95 01/08/19 11:35 Constitutional: Yes: No Distress, Calm, Thin Neck: Yes: Supple Cardiovascular: Yes: Regular Rate and Rhythm Respiratory: Yes: Regular, On Nasal O2 Gastrointestinal: Yes: Soft, Hypoactive Bowel Sounds Edema: No Labs: CBC, BMP 01/08/19 05:30 01/08/19 05:30 INR, PTT INR 1.93 (0.83-1.09) H 01/03/19 05:30 - ....Imaging EKG: Report Reviewed (Tele: NSR) Problem List - Problems (1) [id number] kidney injury Code(s): N17.9 - ACUTE KIDNEY FAILURE, UNSPECIFIED; N18.9 - CHRONIC KIDNEY DISEASE, UNSPECIFIED Qualifiers: Acute renal failure type: unspecified Chronic kidney disease stage: unspecified stage Qualified Code(s): N17.9 - Acute kidney failure, unspecified ; N18.9 - Chronic kidney disease, unspecified (2) Acute on chronic diastolic (congestive) heart failure Code(s): I50.33 - ACUTE ON CHRONIC DIASTOLIC (CONGESTIVE) HEART FAILURE (3) CAD (coronary artery disease) Code(s): I25.10 - ATHSCL HEART DISEASE OF [place] CORONARY ARTERY W/O ANG PCTRS Qualifiers: Coronary Disease-Associated Artery/Lesion type: [place] artery [place] vs. transplanted heart: [place] heart Associated angina: without angina Qualified Code(s): I25.10 - Atherosclerotic heart disease of [place] coronary artery without angina pectoris (4) COPD (chronic obstructive pulmonary disease) Code(s): J44.9 - CHRONIC OBSTRUCTIVE PULMONARY DISEASE, UNSPECIFIED Qualifiers: COPD type: unspecified COPD Qualified Code(s): J44.9 - Chronic obstructive pulmonary disease, unspecified (5) Chronic anemia Code(s): D64.9 - ANEMIA, UNSPECIFIED (6) Chronic anticoagulation Code(s): Z79.01 - RETIREMENT (CURRENT) USE OF ANTICOAGULANTS (7) HTN (hypertension) Code(s): I10 - ESSENTIAL (PRIMARY) HYPERTENSION Qualifiers: Hypertension type: essential hypertension Qualified Code(s): I10 - Essential (primary) hypertension (8) Hx of CABG Code(s): Z95.1 - PRESENCE OF AORTOCORONARY BYPASS GRAFT (9) SOB (shortness of breath) Code(s): R06.02 - SHORTNESS OF BREATH (10) Status post insertion of drug-eluting stent into left anterior descending ( LAD) artery Code(s): Z95.5 - PRESENCE OF CORONARY ANGIOPLASTY IMPLANT AND GRAFT (11) Anemia Code(s): D64.9 - ANEMIA, UNSPECIFIED Qualifiers: Anemia type: unspecified type Qualified Code(s): D64.9 - Anemia, unspecified (12) Atrial fibrillation Code(s): I48.91 - UNSPECIFIED ATRIAL FIBRILLATION Qualifiers: Atrial fibrillation type: permanent Qualified Code(s): I48.2 - Chronic atrial fibrillation (13) Hyperlipidemia Code(s): E78.5 - HYPERLIPIDEMIA, UNSPECIFIED Qualifiers: Hyperlipidemia type: pure hypercholesterolemia Qualified Code(s): E78.00 - Pure hypercholesterolemia, unspecified; E78.0 - Pure hypercholesterolemia (14) Subendocardial ischemia Code(s): I24.8 - OTHER FORMS OF ACUTE ISCHEMIC HEART DISEASE Assessment/Plan 12/31/2018 Echo: Normal LV size and fxn LVEF 60%, mod dilated RV with mild decreased RV fxn, mild-mod AUTUMN, mild MR, mod TR RVSP 31 mmHg 1. Acute on chronic diastolic heart failure 2. CAD post CABG/PCI (stent) evidence of demand ischemia angina pectoris 3. Persistent atrial fibrillation [id number] score of 5 on Coumadin therapy 4. Hypertension 5. Hypercholesterolemia 6. MR mild to moderate in severity 7. TR moderate in severity 8. Carotid stenosis, moderate in severity 9. COPD 10. Acute on chronic kidney disease, initiated HD 11. Anemia PLAN: 1. Ideally resume Toprol XL 25 qd, hemodynamics permitting 2. Ideally should be on ACEI or ARBS, pending renal function stabilization or HD initiation 3. Continue Crestor 5 qhs 4. Continue Heparin gtt with caution in view of the above noted anemia 5. HD as per renal service 6. Titrate HFOT to keep SpO2 >90% 7. Replete K and Mg
[2019-01-08] MEDS: HEPARIN INFUSION - 25,000 UNITS/500 ML INFUS.BAG IV SCH (17:43)
--- NOTE | 2019-01-08 17:43 | PN ---
Physical Exam: SUBJECTIVE: Patient seen and examined; HD ; off pressors; on hep ggt OBJECTIVE: Vital Signs Period Temp Pulse Resp BP Sys/Ascencio Pulse Ox Last 24 Hr 98.2 F-98.6 F 59-78 18-26 94-115/45-70 95-100 GENERAL: The patient is awake, alert, and fully oriented, in no acute distress. HEAD: Normal with no signs of trauma. LUNGS: Breath sounds equal, clear to auscultation bilaterally, no wheezes, no crackles, no accessory muscle use. HEART: Regular rate and rhythm, S1, S2 without murmur, rub or gallop. ABDOMEN: Soft, nontender, nondistended, normoactive bowel sounds, no guarding, no rebound, no hepatosplenomegaly, no masses. EXTREMITIES: 2+ pulses, warm, well-perfused, + edema. NEUROLOGICAL: Cranial nerves II through XII grossly intact. Normal speech, gait not observed. PSYCH: Normal mood, normal affect. SKIN: Warm, dry, normal turgor, no rashes or lesions noted Laboratory Results - last 24 hr 01/08/19 01/08/19 01/08/19 05:30 05:30 09:55 WBC 3.7 L RBC 2.65 L Hgb 8.7 L Hct 25.3 L MCV 95.6 MCH 32.9 MCHC 34.4 RDW 16.9 H Plt Count 98 L MPV 7.7 PTT (Actin FS) 60.7 H Sodium 139 Potassium 3.2 L Chloride 102 Carbon Dioxide 29 Anion Gap 8 BUN 33 H Creatinine 3.5 H Creat Clearance w eGFR 16.57 Random Glucose 94 Calcium 7.7 L Phosphorus 4.5 Magnesium 1.7 L Vitamin B12 561 Serum Folate 12 Active Medications Generic Name Dose Route Start Last Admin Trade Name Freq PRN Reason Stop Dose Admin Artificial Tears 1 drop 01/02/19 14:09 01/04/19 09:55 Artificial Tears OU 1 drop TID PRN Administration DRY EYES Chlorhexidine Gluconate 1 applic 12/31/18 22:00 01/08/19 00:30 Hibiclens For Decolonization - TP 1 applic HS JAYCE Administration Heparin Sodium (Porcine) 1,000 unit 01/03/19 11:54 Heparin - IVPUSH PRN PRN Heparin Heparin Sodium (Porcine) 5,000 unit 01/03/19 11:54 Heparin - IVPUSH PRN PRN Heparin Heparin Sodium/Dextrose 25,000 units in 500 mls @ 20 mls/hr 01/03/19 12:00 17:17 Heparin Infusion - IV 900 units/hr TITR JAYCE 18 mls/hr Administration Protocol 1,000 UNITS/HR Sodium Chloride 250 mls @ 3,000 mls/hr 01/08/19 12:52 Normal Saline - IV 01/09/19 12:52 PRN PRN Hypotension during Dialysis Rosuvastatin Calcium 5 mg 01/02/19 22:00 01/07/19 21:30 Crestor - PO 5 mg HS JAYCE Administration ASSESSMENT/PLAN: This is a 88 year old male with a history of CAD s/p CABG, s/p PCI/LUIS EDUARDO , persistnat atrial fibrillation, diastolic congestive heart failure, HTN, carotid stenosis who presented with worsening SON, orthopnea, b/l leg edema, found to be in acute heart failure. #Acute on chronic diastolic heart failure -daily weights, strict I/Os; christina in place -cardio , renal -HD #Acute hypoxic respiratory failure - sec to vol overload; on BiPAP prn #Atrial fibrillation with warfarin toxicity -rate controlled -on heparin ggt #Acute on chronic kidney disease -HD started -cardio; renal vs sec to hypotension; -urine lytes -stirct i/os -ua, uc #Macrocytic Anemia; monitor for acute bleed; FOBT: on hep drip -check b12, folate, tsh; iron stores -iron studies were low; need for venofer/ epogen -s/p 1UPRBC today; rech cbc #thrombocytopenia: -monitor platelets for HIT on heparin drip -abdominal US r/o hepatosplenomegaly #hypokalemia; replace #hyperphosphetema; sec renal failure -hd; phos lo #UTI: -completed antibiotics course #COPD -; cont IH bronchodilators #HTN -hold home meds; currently hypotensive on dopamine #HLD -statin Diet npo while on bIpap Visit type - Emergency Visit Emergency Visit: Yes ED Registration Date: 12/30/18 Care time: The patient presented to the Emergency Department on the above date and was hospitalized for further evaluation of their emergent condition. - New Patient This patient is new to me today: No - Critical Care Critical Care patient: Yes Total Critical Care Time (in minutes): 35 Critical Care Statement: The care of this patient involved high complexity decision making to prevent further life threatening deterioration of the patient 's condition and/or to evaluate & treat vital organ system(s) failure or risk of failure.
[2019-01-08] MEDS ORDERED: metoPROLOL SUCCINATE 25 MG TAB.SR.24H (FP) PO SCH (18:00)
[2019-01-08] MEDS: ROSUVASTATIN CA 5 MG TABLET (FP) PO SCH (22:04)
[2019-01-09 06:07] LABS: HEMATOCRIT 26.4 % (35.4-49); HEMOGLOBIN 8.7 GM/dL (11.7-16.9); MCH 31.7 pg (25.7-33.7); MCHC 32.8 g/dl (32.0-35.9); MEAN CELL VOLUME 96.6 fl (80-96); MEAN PLT VOLUME 7.9 fl (7.5-11.1); PLATELET COUNT 100 K/MM3 (134-434); RBC 2.73 M/mm3 (4.00-5.60); RDW 16.6 % (11.9-15.9); WHITE BLOOD COUNT 4.1 K/mm3 (4.0-10.0)
[2019-01-09 06:36] LABS: ANION GAP 10 MMOL/L (8-16); BLOOD UREA NITROGEN 39 mg/dL (7-18); CALCIUM 7.7 mg/dL (8.5-10.1); CHLORIDE 102 mmol/L (98-107); CO2 29 mmol/L (21-32); GLUCOSE,RANDOM 96 mg/dL (74-106); MAGNESIUM 1.9 mg/dL (1.8-2.4); PHOSPHOROUS 4.9 mg/dL (2.5-4.9); POTASSIUM 3.2 mmol/L (3.5-5.1)
[2019-01-09 06:48] LABS: SODIUM 141 mmol/L (136-145)
--- NOTE | 2019-01-09 08:39 | PN ---
Physical Exam: SUBJECTIVE: Patient seen and examined this AM. He states that he feels similar to yesterday. OBJECTIVE: Vital Signs Period Temp Pulse Resp BP Sys/Ascencio Pulse Ox Last 24 Hr 98.3 F-99.2 F 56-84 18-27 94-115/43-94 95-100 GEN: A&O, no acute distress HEENT: PERRL, moist mucus membranes NECK: Supple, no lymphadenopathy HEART: RRR, no murmurs noted LUNGS: diffuse rhonchi/crackles/wheezes improved from yesterday, decreased breath sounds diffusely ABDOMEN: Soft, nontender, normoactive bowel sounds EXTREMITIES: 1+ edema in b/l LE, no calf tenderness noted Laboratory Results - last 24 hr 01/08/19 01/08/19 01/09/19 09:55 18:43 05:30 WBC 4.1 RBC 2.73 L Hgb 8.7 L Hct 26.4 L MCV 96.6 H MCH 31.7 MCHC 32.8 RDW 16.6 H Plt Count 100 L MPV 7.9 PTT (Actin FS) 60.7 H Sodium Potassium Chloride Carbon Dioxide Anion Gap BUN Creatinine Creat Clearance w eGFR Random Glucose Calcium Phosphorus Magnesium Stool Occult Blood Negative 01/09/19 05:30 WBC RBC Hgb Hct MCV MCH MCHC RDW Plt Count MPV PTT (Actin FS) Sodium 141 Potassium 3.2 L Chloride 102 Carbon Dioxide 29 Anion Gap 10 BUN 39 H Creatinine 4.0 H Creat Clearance w eGFR 14.21 Random Glucose 96 Calcium 7.7 L Phosphorus 4.9 Magnesium 1.9 Stool Occult Blood Active Medications Generic Name Dose Route Start Last Admin Trade Name Kareemq PRN Reason Stop Dose Admin Albuterol Sulfate 1 amp 01/08/19 22:48 Ventolin 0.083% Nebulizer Soln - NEB Q4H PRN SHORT OF BREATH/WHEEZING Artificial Tears 1 drop 01/02/19 14:09 01/04/19 09:55 Artificial Tears OU 1 drop TID PRN Administration DRY EYES Chlorhexidine Gluconate 1 applic 12/31/18 22:00 01/08/19 22:04 Hibiclens For Decolonization - TP 1 applic HS JAYCE Administration Heparin Sodium (Porcine) 1,000 unit 01/03/19 11:54 Heparin - IVPUSH PRN PRN Heparin Heparin Sodium (Porcine) 5,000 unit 01/03/19 11:54 Heparin - IVPUSH PRN PRN Heparin Heparin Sodium/Dextrose 25,000 units in 500 mls @ 20 mls/hr 01/03/19 12:00 17:43 Heparin Infusion - IV 900 units/hr TITR JAYCE 18 mls/hr Administration Protocol 1,000 UNITS/HR Sodium Chloride 250 mls @ 3,000 mls/hr 01/08/19 12:52 Normal Saline - IV 01/09/19 12:52 PRN PRN Hypotension during Dialysis Metoprolol Succinate 12.5 mg 01/08/19 18:00 01/08/19 18:04 Toprol Xl - PO Not Given DAILY JAYCE Rosuvastatin Calcium 5 mg 01/02/19 22:00 01/08/19 22:04 Crestor - PO 5 mg HS JAYCE Administration ASSESSMENT/PLAN: Patient is an 88 year old male who presented for worsening shortness of breath and was found to have CHF exacerbation with hypotension. Patient admitted to ICU for further monitoring and management. 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 -Likely Cardio-Renal Syndrome -Repeat ECHO with normal EF, dilated RV and RA -Off pressors -Low sodium diet -Lester placed for strict I&O's -Daily weights -Hold B-mukesh until more hemodynamically stable #Permanent atrial fibrillation -[id number] -Patient on Warfarin at home, INR improved -Heparin drip for now #CAD s/p CABG -s/p PCI/LUIS EDUARDO to LAD -Continue BB, ASA, and Rosuvastatin -Maintain Hgb > 8 #HTN -Hold anti-htn medications as patient is hypotensive -Currently off Norepinephrine, continue to monitor MAPs #HLD -Continue home Crestor NEPHROLOGY #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 -Likely ATN -Baseline around 1.5 -Kidney/Bladder U/S without signs of obstruction -Avoid nephrotoxic medications -Renally dose medications -Will hold CAROLYN/ARB for now -Nephrology consult appreciated -Monitor BMP -Requiring dialysis for volume removal, though urine output and color slightly improved INFECTIOUS DISEASE #UTI - Resolved -Completed course of Rocephin -Urine culture grew Enterococcus HEMATOLOGY #Supratherapeutic INR - resolved -Improved, Heparin drip in lieu of warfarin for now #Macrocytic Anemia -With possible superimposed chronic anemia -Renal consult appreciated -Continue to monitor CBC -Iron studies normal F/E/N -None -HyperPhos. Continue to monitor -Sodium controlled diet Prophylaxis -SCD's, Heparin Drip -No GI required LINES -Will place Trialysis catheter if necessary for further HD Disposition -Full code -Monitor in ICU on High Flow O2 Visit type - Emergency Visit Emergency Visit: Yes ED Registration Date: 12/30/18 Care time: The patient presented to the Emergency Department on the above date and was hospitalized for further evaluation of their emergent condition. - New Patient This patient is new to me today: No - Critical Care Critical Care patient: Yes Total Critical Care Time (in minutes): 40 Critical Care Statement: The care of this patient involved high complexity decision making to prevent further life threatening deterioration of the patient 's condition and/or to evaluate & treat vital organ system(s) failure or risk of failure.
--- NOTE | 2019-01-09 12:16 | PN ---
Teaching Attending Note Name of Resident: Venancio Combs ATTENDING PHYSICIAN STATEMENT I saw and evaluated the patient. I reviewed the resident's note and discussed the case with the resident. I agree with the resident's findings and plan as documented. SUBJECTIVE: Patient seen and examined in the ICU. Remains mildly tachypneic at rest on HFOT. Denies CP. Some dry cough. S/P HD yesterday and catheter was removed. OBJECTIVE: Intake & Output 01/06/19 01/07/19 01/08/19 01/09/19 23:59 23:59 23:59 23:59 Intake Total 416 778 867 326 Output Total 100 200 50 50 Balance 316 578 817 276 Weight 216 lb 0.848 oz 204 lb 9.423 oz 201 lb 197 lb 3.2 oz Last Vital Signs Temp Pulse Resp BP Pulse Ox 99.4 F 56 L 25 H 97/52 L 98 01/09/19 10:00 01/09/19 10:00 01/09/19 10:00 01/09/19 10:00 01/09/19 08:36 Active Medications Albuterol Sulfate (Ventolin 0.083% Nebulizer Soln -) 1 amp NEB Q4H PRN PRN Reason: SHORT OF BREATH/WHEEZING Artificial Tears (Artificial Tears) 1 drop OU TID PRN PRN Reason: DRY EYES Last Admin: 01/04/19 09:55 Dose: 1 drop Chlorhexidine Gluconate (Hibiclens For Decolonization -) 1 applic TP HS JAYCE Last Admin: 01/08/19 22:04 Dose: 1 applic Heparin Sodium (Porcine) (Heparin -) 1,000 unit IVPUSH PRN PRN PRN Reason: Heparin Heparin Sodium (Porcine) (Heparin -) 5,000 unit IVPUSH PRN PRN PRN Reason: Heparin Heparin Sodium/Dextrose (Heparin Infusion -) 25,000 units in 500 mls @ 20 mls/ hr IV TITR JAYCE; Protocol Last Titration: 01/09/19 10:21 Dose: 900 units/hr, 18 mls/hr Sodium Chloride (Normal Saline -) 250 mls @ 3,000 mls/hr IV PRN PRN PRN Reason: Hypotension during Dialysis Stop: 01/09/19 12:52 Rosuvastatin Calcium (Crestor -) 5 mg PO HS JAYCE Last Admin: 01/08/19 22:04 Dose: 5 mg Gen: Awake and alert, Mildly tachypneic at rest on HFOT Heart: RRR Lung: Bilateral coarse rhonchi/crackles Abd: soft, nontender Ext: + edema Laboratory Results - last 24 hr 01/06/19 01/08/19 01/09/19 09:40 18:43 05:30 WBC 4.1 RBC 2.73 L Hgb 8.7 L Hct 26.4 L MCV 96.6 H MCH 31.7 MCHC 32.8 RDW 16.6 H Plt Count 100 L MPV 7.9 PTT (Actin FS) Sodium Potassium Chloride Carbon Dioxide Anion Gap BUN Creatinine Creat Clearance w eGFR Random Glucose Calcium Phosphorus Magnesium Stool Occult Blood Negative Blood Type O POSITIVE Antibody Screen Negative Crossmatch See Detail 01/09/19 01/09/19 05:30 07:55 WBC RBC Hgb Hct MCV MCH MCHC RDW Plt Count MPV PTT (Actin FS) 54.3 H Sodium 141 Potassium 3.2 L Chloride 102 Carbon Dioxide 29 Anion Gap 10 BUN 39 H Creatinine 4.0 H Creat Clearance w eGFR 14.21 Random Glucose 96 Calcium 7.7 L Phosphorus 4.9 Magnesium 1.9 Stool Occult Blood Blood Type Antibody Screen Crossmatch ASSESSMENT AND PLAN: Acute Hypoxic Respiratory Failure Acute on Chronic Diastolic Heart Failure Volume Overload Atrial Fibrillation Acute on Chronic Renal Failure COPD Anemia Hypercholesterolemia - Trial of Lasix - Will need access if he does not respond: (?) Permacath - Closely monitor urine output, creatinine - daily weights - O2 to keep SpO2 >90% - HFOT / BiPAP to assist in work of breathing - rate control - AC - ICU monitoring for tenuous hemodynamics and respiratory monitoring and he is on HFOT Dr Guevara critical care time spent in reviewing chart, evaluating patient and formulating plan 35 min
--- NOTE | 2019-01-09 12:37 | PN ---
Progress Note, Physician History of Present Illness: Eating lunch, hemodynamics stable off pressors. - Current Medication List Current Medications: Active Medications Albuterol Sulfate (Ventolin 0.083% Nebulizer Soln -) 1 amp NEB Q4H PRN PRN Reason: SHORT OF BREATH/WHEEZING Artificial Tears (Artificial Tears) 1 drop OU TID PRN PRN Reason: DRY EYES Last Admin: 01/04/19 09:55 Dose: 1 drop Chlorhexidine Gluconate (Hibiclens For Decolonization -) 1 applic TP HS JAYCE Last Admin: 01/08/19 22:04 Dose: 1 applic Heparin Sodium (Porcine) (Heparin -) 1,000 unit IVPUSH PRN PRN PRN Reason: Heparin Heparin Sodium (Porcine) (Heparin -) 5,000 unit IVPUSH PRN PRN PRN Reason: Heparin Heparin Sodium/Dextrose (Heparin Infusion -) 25,000 units in 500 mls @ 20 mls/ hr IV TITR JAYCE; Protocol Last Titration: 01/09/19 10:21 Dose: 900 units/hr, 18 mls/hr Sodium Chloride (Normal Saline -) 250 mls @ 3,000 mls/hr IV PRN PRN PRN Reason: Hypotension during Dialysis Stop: 01/09/19 12:52 Rosuvastatin Calcium (Crestor -) 5 mg PO HS JAYCE Last Admin: 01/08/19 22:04 Dose: 5 mg - Objective Vital Signs: Vital Signs Temperature 99.4 F 01/09/19 10:00 Pulse Rate 58 L 01/09/19 12:00 Respiratory Rate 25 H 01/09/19 12:00 Blood Pressure 105/57 L 01/09/19 12:00 O2 Sat by Pulse Oximetry (%) 98 01/09/19 08:36 Constitutional: Yes: No Distress, Calm, Thin Neck: Yes: Supple Cardiovascular: Yes: Pulse Irregular Respiratory: Yes: Regular, On Nasal O2 Gastrointestinal: Yes: Normal Bowel Sounds, Soft Edema: No Labs: CBC, BMP 01/09/19 05:30 01/09/19 05:30 INR, PTT INR 1.93 (0.83-1.09) H 01/03/19 05:30 - ....Imaging Chest X-ray: Report Reviewed (Stable changes) Problem List - Problems (1) [id number]-evzdsam kidney injury Code(s): N17.9 - ACUTE KIDNEY FAILURE, UNSPECIFIED; N18.9 - CHRONIC KIDNEY DISEASE, UNSPECIFIED Qualifiers: Acute renal failure type: unspecified Chronic kidney disease stage: unspecified stage Qualified Code(s): N17.9 - Acute kidney failure, unspecified ; N18.9 - Chronic kidney disease, unspecified (2) Acute on chronic diastolic (congestive) heart failure Code(s): I50.33 - ACUTE ON CHRONIC DIASTOLIC (CONGESTIVE) HEART FAILURE (3) CAD (coronary artery disease) Code(s): I25.10 - ATHSCL HEART DISEASE OF [place] CORONARY ARTERY W/O ANG PCTRS Qualifiers: Coronary Disease-Associated Artery/Lesion type: [place] artery [place] vs. transplanted heart: [place] heart Associated angina: without angina Qualified Code(s): I25.10 - Atherosclerotic heart disease of [place] coronary artery without angina pectoris (4) COPD (chronic obstructive pulmonary disease) Code(s): J44.9 - CHRONIC OBSTRUCTIVE PULMONARY DISEASE, UNSPECIFIED Qualifiers: COPD type: unspecified COPD Qualified Code(s): J44.9 - Chronic obstructive pulmonary disease, unspecified (5) Chronic anemia Code(s): D64.9 - ANEMIA, UNSPECIFIED (6) Chronic anticoagulation Code(s): Z79.01 - DETENTION (CURRENT) USE OF ANTICOAGULANTS (7) HTN (hypertension) Code(s): I10 - ESSENTIAL (PRIMARY) HYPERTENSION Qualifiers: Hypertension type: essential hypertension Qualified Code(s): I10 - Essential (primary) hypertension (8) Hx of CABG Code(s): Z95.1 - PRESENCE OF AORTOCORONARY BYPASS GRAFT (9) SOB (shortness of breath) Code(s): R06.02 - SHORTNESS OF BREATH (10) Status post insertion of drug-eluting stent into left anterior descending ( LAD) artery Code(s): Z95.5 - PRESENCE OF CORONARY ANGIOPLASTY IMPLANT AND GRAFT (11) Anemia Code(s): D64.9 - ANEMIA, UNSPECIFIED Qualifiers: Anemia type: unspecified type Qualified Code(s): D64.9 - Anemia, unspecified (12) Atrial fibrillation Code(s): I48.91 - UNSPECIFIED ATRIAL FIBRILLATION Qualifiers: Atrial fibrillation type: permanent Qualified Code(s): I48.2 - Chronic atrial fibrillation (13) Hyperlipidemia Code(s): E78.5 - HYPERLIPIDEMIA, UNSPECIFIED Qualifiers: Hyperlipidemia type: pure hypercholesterolemia Qualified Code(s): E78.00 - Pure hypercholesterolemia, unspecified; E78.0 - Pure hypercholesterolemia (14) Subendocardial ischemia Code(s): I24.8 - OTHER FORMS OF ACUTE ISCHEMIC HEART DISEASE Assessment/Plan 12/31/2018 Echo: Normal LV size and fxn LVEF 60%, mod dilated RV with mild decreased RV fxn, mild-mod AUTUMN, mild MR, mod TR RVSP 31 mmHg 1. Acute Hypoxic Respiratory Failure 2. Acute on chronic diastolic heart failure 3. CAD post CABG/PCI (stent) evidence of demand ischemia angina pectoris 4. Persistent atrial fibrillation [id number] score of 5 on Coumadin therapy 5. Hypertension 6. Hypercholesterolemia 7. MR mild to moderate in severity 8. TR moderate in severity 9. Carotid stenosis, moderate in severity 10. COPD 11. Acute on chronic kidney disease, initiated HD 12. Anemia PLAN: 1. Ideally resume Toprol XL 25 qd, hemodynamics permitting 2. Ideally should be on ACEI or ARBS, pending renal function stabilization or HD initiation 3. Continue Crestor 5 qhs 4. Continue Heparin gtt with caution in view of the above noted anemia 5. HD as per renal service, Trial of Lasix, urine output, creatinine 6. Titrate HFOT to keep SpO2 >90% 7. Replete K and Mg
--- NOTE | 2019-01-09 14:48 | PN ---
Teaching Attending Note Name of Resident: Ernestina Hodges ATTENDING PHYSICIAN STATEMENT I saw and evaluated the patient. I reviewed the resident's note and discussed the case with the resident. I agree with the resident's findings and plan as documented with exceptions below. SUBJECTIVE: Patient seen and examined. Breathing overall unchanged, Denies any abdominal pain or urinary symptoms. OBJECTIVE: Vital Signs Period Temp Pulse Resp BP Sys/Ascencio Pulse Ox Last 24 Hr 98.4 F-99.4 F 52-84 18-27 94-112/43-94 97-100 Intake & Output 01/06/19 01/07/19 01/08/19 01/09/19 23:59 23:59 23:59 23:59 Intake Total 416 778 867 326 Output Total 100 200 50 50 Balance 316 578 817 276 Weight 216 lb 0.848 oz 204 lb 9.423 oz 201 lb 197 lb 3.2 oz General: sitting in bed, weak looking, mild tachypnea Neck: soft, supple, neck vein distension Chest: bibasilar rales Abdomen: soft, distended, NT throughout Extremities: unchanged pedal edema Home Medications Medication Instructions Recorded Ranolazine [Ranexa -] 500 mg PO BID 03/22/12 Cholecalciferol (Vitamin D3) 2,000 unit PO DAILY 03/13/18 [Vitamin D -] Vit A/Vit C/Vit E/Zinc/Copper 1 each PO DAILY 03/13/18 [Preservision Areds Tablet] Metoprolol Succinate [Toprol Xl] 25 mg PO DAILY 03/18/18 Losartan Potassium [Cozaar -] 25 mg PO DAILY tablet 10/06/18 Warfarin Sodium 5 mg PO HS 30 Days #30 tablet 10/06/18 Allopurinol [Zyloprim -] 150 mg PO DAILY 12/30/18 Furosemide [Lasix] 40 mg PO DAILY 12/30/18 Rosuvastatin [Crestor -] 3 mg PO HS 12/30/18 Active Medications Albuterol Sulfate (Ventolin 0.083% Nebulizer Soln -) 1 amp NEB Q4H PRN PRN Reason: SHORT OF BREATH/WHEEZING Artificial Tears (Artificial Tears) 1 drop OU TID PRN PRN Reason: DRY EYES Last Admin: 01/04/19 09:55 Dose: 1 drop Chlorhexidine Gluconate (Hibiclens For Decolonization -) 1 applic TP HS [facility] Last Admin: 01/08/19 22:04 Dose: 1 applic Heparin Sodium (Porcine) (Heparin -) 1,000 unit IVPUSH PRN PRN PRN Reason: Heparin Heparin Sodium (Porcine) (Heparin -) 5,000 unit IVPUSH PRN PRN PRN Reason: Heparin Heparin Sodium/Dextrose (Heparin Infusion -) 25,000 units in 500 mls @ 20 mls/ hr IV TITR JAYCE; Protocol Last Titration: 01/09/19 10:21 Dose: 900 units/hr, 18 mls/hr Sodium Chloride (Normal Saline -) 250 mls @ 3,000 mls/hr IV PRN PRN PRN Reason: Hypotension during Dialysis Stop: 01/09/19 12:52 Rosuvastatin Calcium (Crestor -) 5 mg PO HS JAYCE Last Admin: 01/08/19 22:04 Dose: 5 mg Laboratory Results - last 24 hr 01/06/19 01/08/19 01/09/19 09:40 18:43 05:30 WBC 4.1 RBC 2.73 L Hgb 8.7 L Hct 26.4 L MCV 96.6 H MCH 31.7 MCHC 32.8 RDW 16.6 H Plt Count 100 L MPV 7.9 PTT (Actin FS) Sodium Potassium Chloride Carbon Dioxide Anion Gap BUN Creatinine Creat Clearance w eGFR Random Glucose Calcium Phosphorus Magnesium Stool Occult Blood Negative Blood Type O POSITIVE Antibody Screen Negative Crossmatch See Detail 01/09/19 01/09/19 05:30 07:55 WBC RBC Hgb Hct MCV MCH MCHC RDW Plt Count MPV PTT (Actin FS) 54.3 H Sodium 141 Potassium 3.2 L Chloride 102 Carbon Dioxide 29 Anion Gap 10 BUN 39 H Creatinine 4.0 H Creat Clearance w eGFR 14.21 Random Glucose 96 Calcium 7.7 L Phosphorus 4.9 Magnesium 1.9 Stool Occult Blood Blood Type Antibody Screen Crossmatch Microbiology 12/31/18 12:00 Urine - Urine Lester Urine Culture - Final Enterococcus Faecalis ASSESSMENT AND PLAN: 88 yom CAD s/p CABG (JHAVERI to mLAD, SVG to RPDA), s/p PCI/LUIS EDUARDO to LAD, persistent AF on Coumadin, diastolic dysfunction with h/o failure, HTN, hypercholesterolemia and carotid stenosis, CKD stage II-III (last cr 1.8 in 2018)reportedly taken off lasix/aldacone, planned for PPM on 01/02 at [facility] admitted with progressive dypsnea. -Acute on chronic diastolic+/- systolic heart failure exacerbation (prior on lasix drip, now on HD) -Acute hypoxic repiratory failure -Cardiogenic shock off pressors (Prior on dobutamine then levophed drip_ -Hypotension suspect cardiogenic -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, suspect cardiorenal from CHF -Perisistent Atrial fibrillation on coumadin -Anemia, suspect multifactorial from renal disease, blood draws, monitor for occult bleed -Coumadin coagulopathy -CAD s/p CABG (JHAVERI to mLAD, SVG to RPDA), s/p PCI/LUIS EDUARDO to LAD -HTN -HLD -Carotid stenosis PLan: Ongoing HD for fluid removal. respiratory status still tenuous. Noted with fatigue, Bipap prn. Discussed with Dr. Montgomery, not candidate for permacath currently given tenous respiratory status. Plan for Sh[place]. Telemetry bradycardic, Soft BP. Hold metoprolol for now. resume as hemodynamics permit. Heparin drip. Crestor. Resume ranexa as able. s/p 1 unit PRBC, monitor. DVTPPX heparin drip Prognosis overall poor. Pallliative care to address overall goals of care. Dispo ICU level of care. PLan discussed with patient. Care co-ordinated with ICU/cardiology/nephrology. Total critical care time spent 37 min.
[2019-01-09] MEDS ORDERED: FUROSEMIDE 40 MG/4 ML INJECTABLE VIAL IVPUSH ONE (15:04)
--- NOTE | 2019-01-09 15:19 | PN ---
Physical Exam: SUBJECTIVE: Patient seen and examined; on high flow oxygen ; sitting up eating breakfast breathing same; still sob OBJECTIVE: Vital Signs Period Temp Pulse Resp BP Sys/Ascencio Pulse Ox Last 24 Hr 98.4 F-99.4 F 52-84 18-27 94-112/43-94 97-100 GENERAL: The patient is awake, alert, and fully oriented on HFO NECK: Trachea midline, full range of motion, supple. LUNGS: scattered rhonchi HEART: jesus and irreg rhythm, S1, S2 without murmur, rub or gallop. ABDOMEN: Soft, nontender, nondistended, normoactive bowel sounds, no guarding, no rebound, no hepatosplenomegaly, no masses. EXTREMITIES: 2+ pulses, warm, well-perfused, edema b/l le; improved. NEUROLOGICAL: Cranial nerves II through XII grossly intact. Normal speech, gait not observed. PSYCH: Normal mood, normal affect. SKIN: Warm, dry, normal turgor, no rashes or lesions noted Laboratory Results - last 24 hr 01/06/19 01/08/19 01/09/19 09:40 18:43 05:30 WBC 4.1 RBC 2.73 L Hgb 8.7 L Hct 26.4 L MCV 96.6 H MCH 31.7 MCHC 32.8 RDW 16.6 H Plt Count 100 L MPV 7.9 PTT (Actin FS) Sodium Potassium Chloride Carbon Dioxide Anion Gap BUN Creatinine Creat Clearance w eGFR Random Glucose Calcium Phosphorus Magnesium Stool Occult Blood Negative Blood Type O POSITIVE Antibody Screen Negative Crossmatch See Detail 01/09/19 01/09/19 05:30 07:55 WBC RBC Hgb Hct MCV MCH MCHC RDW Plt Count MPV PTT (Actin FS) 54.3 H Sodium 141 Potassium 3.2 L Chloride 102 Carbon Dioxide 29 Anion Gap 10 BUN 39 H Creatinine 4.0 H Creat Clearance w eGFR 14.21 Random Glucose 96 Calcium 7.7 L Phosphorus 4.9 Magnesium 1.9 Stool Occult Blood Blood Type Antibody Screen Crossmatch Active Medications Generic Name Dose Route Start Last Admin Trade Name Freq PRN Reason Stop Dose Admin Albuterol Sulfate 1 amp 01/08/19 22:48 Ventolin 0.083% Nebulizer Soln - NEB Q4H PRN SHORT OF BREATH/WHEEZING Artificial Tears 1 drop 01/02/19 14:09 01/04/19 09:55 Artificial Tears OU 1 drop TID PRN Administration DRY EYES Chlorhexidine Gluconate 1 applic 12/31/18 22:00 01/08/19 22:04 Hibiclens For Decolonization - TP 1 applic HS JAYCE Administration Furosemide 80 mg 01/09/19 15:04 Lasix Injection - IVPUSH 01/09/19 15:05 ONCE ONE Heparin Sodium (Porcine) 1,000 unit 01/03/19 11:54 Heparin - IVPUSH PRN PRN Heparin Heparin Sodium (Porcine) 5,000 unit 01/03/19 11:54 Heparin - IVPUSH PRN PRN Heparin Heparin Sodium/Dextrose 25,000 units in 500 mls @ 20 mls/hr 01/03/19 12:00 14:50 Heparin Infusion - IV 0 units/hr TITR JAYCE 0 mls/hr Titration Protocol 1,000 UNITS/HR Sodium Chloride 250 mls @ 3,000 mls/hr 01/08/19 12:52 Normal Saline - IV 01/09/19 12:52 PRN PRN Hypotension during Dialysis Rosuvastatin Calcium 5 mg 01/02/19 22:00 01/08/19 22:04 Crestor - PO 5 mg HS JAYCE Administration ASSESSMENT/PLAN: This is a 88 year old male with a history of CAD s/p CABG, s/p PCI/LUIS EDUARDO , persistent atrial fibrillation, diastolic congestive heart failure, HTN, carotid stenosis who presented with worsening SON, orthopnea, b/l leg edema, found to be in acute heart failure. #Acute on chronic diastolic heart failure -daily weights, strict I/Os; christina in place -cardio , renal -HD; lasix prn #Acute hypoxic respiratory failure - sec to vol overload; now high flow #Atrial fibrillation -rate controlled -on heparin ggt #Acute on chronic kidney disease; plan for permacath -HD s -cardio; renal vs sec to hypotension; -urine lytes -stirct i/os -ua, uc #Macrocytic Anemia; monitor for acute bleed; -stool for acute blood negative -s/p 1UPRBC #thrombocytopenia: -ML due to congestive changes -abdominal US +hepatomegaly; #hypokalemia; -replace #hyperphosphetema; sec renal failure -hd; phos lo #UTI: -completed antibiotics course #COPD -; cont IH bronchodilators #HTN -hold home meds; #HLD -statin Diet regular Visit type - Emergency Visit Emergency Visit: Yes ED Registration Date: 12/30/18 Care time: The patient presented to the Emergency Department on the above date and was hospitalized for further evaluation of their emergent condition. - New Patient This patient is new to me today: No - Critical Care Critical Care patient: Yes Total Critical Care Time (in minutes): 35 Critical Care Statement: The care of this patient involved high complexity decision making to prevent further life threatening deterioration of the patient 's condition and/or to evaluate & treat vital organ system(s) failure or risk of failure.
--- NOTE | 2019-01-09 15:26 | PN ---
Progress Note, Physician History of Present Illness: Pt seen and examined at bedside. He is awake and alert. He still requires high flow oxygen. - Current Medication List Current Medications: Active Medications Albuterol Sulfate (Ventolin 0.083% Nebulizer Soln -) 1 amp NEB Q4H PRN PRN Reason: SHORT OF BREATH/WHEEZING Artificial Tears (Artificial Tears) 1 drop OU TID PRN PRN Reason: DRY EYES Last Admin: 01/04/19 09:55 Dose: 1 drop Chlorhexidine Gluconate (Hibiclens For Decolonization -) 1 applic TP HS JAYCE Last Admin: 01/08/19 22:04 Dose: 1 applic Furosemide (Lasix Injection -) 80 mg IVPUSH ONCE ONE Stop: 01/09/19 15:05 Heparin Sodium (Porcine) (Heparin -) 1,000 unit IVPUSH PRN PRN PRN Reason: Heparin Heparin Sodium (Porcine) (Heparin -) 5,000 unit IVPUSH PRN PRN PRN Reason: Heparin Heparin Sodium/Dextrose (Heparin Infusion -) 25,000 units in 500 mls @ 20 mls/ hr IV TITR JAYCE; Protocol Last Titration: 01/09/19 14:50 Dose: 0 units/hr, 0 mls/hr Sodium Chloride (Normal Saline -) 250 mls @ 3,000 mls/hr IV PRN PRN PRN Reason: Hypotension during Dialysis Stop: 01/09/19 12:52 Rosuvastatin Calcium (Crestor -) 5 mg PO HS JAYCE Last Admin: 01/08/19 22:04 Dose: 5 mg - Objective Vital Signs: Vital Signs Temperature 99 F 01/09/19 14:00 Pulse Rate 60 01/09/19 14:00 Respiratory Rate 25 H 01/09/19 14:00 Blood Pressure 109/49 L 01/09/19 14:00 O2 Sat by Pulse Oximetry (%) 98 01/09/19 10:00 Constitutional: Yes: Calm Eyes: Yes: Conjunctiva Clear HENT: Yes: Atraumatic Cardiovascular: Yes: S1, S2 Respiratory: Yes: On Nasal O2, Rhonchi Gastrointestinal: Yes: Soft Genitourinary: Yes: Lester Present, Oliguria Musculoskeletal: Yes: Muscle Weakness Edema: Yes Edema: LLE: 1+, RLE: 1+ Neurological: Yes: Oriented Psychiatric: Yes: Oriented Labs: CBC, BMP 01/09/19 05:30 01/09/19 05:30 INR, PTT INR 1.93 (0.83-1.09) H 01/03/19 05:30 - ....Imaging Chest X-ray: Report Reviewed Problem List - Problems (1) [id number] kidney injury Code(s): N17.9 - ACUTE KIDNEY FAILURE, UNSPECIFIED; N18.9 - CHRONIC KIDNEY DISEASE, UNSPECIFIED Qualifiers: Qualified Code(s): N17.9 - Acute kidney failure, unspecified; N18.9 - Chronic kidney disease, unspecified (2) Congestive heart failure Code(s): I50.9 - HEART FAILURE, UNSPECIFIED Qualifiers: Qualified Code(s): I50.9 - Heart failure, unspecified Assessment/Plan Current Medications Generic Name Dose Route Start Last Admin Trade Name Freq PRN Reason Stop Dose Admin Albuterol Sulfate 1 amp 01/08/19 22:48 Ventolin 0.083% Nebulizer Soln - NEB Q4H PRN SHORT OF BREATH/WHEEZING Artificial Tears 1 drop 01/02/19 14:09 01/04/19 09:55 Artificial Tears OU 1 drop TID PRN Administration DRY EYES Chlorhexidine Gluconate 1 applic 12/31/18 22:00 01/08/19 22:04 Hibiclens For Decolonization - TP 1 applic HS JAYCE Administration Furosemide 80 mg 01/09/19 15:04 Lasix Injection - IVPUSH 01/09/19 15:05 ONCE ONE Heparin Sodium (Porcine) 1,000 unit 01/03/19 11:54 Heparin - IVPUSH PRN PRN Heparin Heparin Sodium (Porcine) 5,000 unit 01/03/19 11:54 Heparin - IVPUSH PRN PRN Heparin Heparin Sodium/Dextrose 25,000 units in 500 mls @ 20 mls/hr 01/03/19 12:00 14:50 Heparin Infusion - IV 0 units/hr TITR JAYCE 0 mls/hr Titration Protocol 1,000 UNITS/HR Sodium Chloride 250 mls @ 3,000 mls/hr 01/08/19 12:52 Normal Saline - IV 01/09/19 12:52 PRN PRN Hypotension during Dialysis Rosuvastatin Calcium 5 mg 01/02/19 22:00 01/08/19 22:04 Crestor - PO 5 mg HS JAYCE Administration Impression 1. ANGELA 2. CKD 3. CHF 4. hypotension 5. resp failure requiring bipap 6. a-fib 7. hld 8. bilateral pleural effusions 9. anemia Plan - pt for permacath tomorrow - HD likely tomorrow - discussed with ICU team - can give a lasix trial - repeat cxr in am - pt likely has ATN - monitor pulse ox - avoid nsaids - prognosis guarded
--- NOTE | 2019-01-09 16:06 | SPA.PREOP ---
- PRE-OP NOTE Dx: ESRD Planned Procedure: Permacath placment Surgeon: Dr. Lang Last Vital Signs Temp Pulse Resp BP Pulse Ox 99 F 60 25 H 109/49 L 98 01/09/19 14:00 01/09/19 14:00 01/09/19 14:00 01/09/19 14:00 01/09/19 10:00 Lab Results WBC 4.1 K/mm3 (4.0-10.0) 01/09/19 05:30 RBC 2.73 M/mm3 (4.00-5.60) L 01/09/19 05:30 Hgb 8.7 GM/dL (11.7-16.9) L 01/09/19 05:30 Hct 26.4 % (35.4-49) L 01/09/19 05:30 MCV 96.6 fl (80-96) H 01/09/19 05:30 MCHC 32.8 g/dl (32.0-35.9) 01/09/19 05:30 RDW 16.6 % (11.9-15.9) H 01/09/19 05:30 Plt Count 100 K/MM3 (134-434) L 01/09/19 05:30 Sodium 141 mmol/L (136-145) 01/09/19 05:30 Potassium 3.2 mmol/L (3.5-5.1) L 01/09/19 05:30 Chloride 102 mmol/L (98-107) 01/09/19 05:30 Carbon Dioxide 29 mmol/L (21-32) 01/09/19 05:30 Anion Gap 10 MMOL/L (8-16) 01/09/19 05:30 BUN 39 mg/dL (7-18) H 01/09/19 05:30 Creatinine 4.0 mg/dL (0.55-1.3) H 01/09/19 05:30 Random Glucose 96 mg/dL (74-106) 01/09/19 05:30 Calcium 7.7 mg/dL (8.5-10.1) L 01/09/19 05:30 Blood Type O POSITIVE 01/06/19 09:40 Antibody Screen Negative 01/06/19 09:40 INR 1.93 (0.83-1.09) H 01/03/19 05:30 Laboratory Tests 01/09/19 07:55 PTT (Actin FS) 54.3 H - ASSESSMENT/PLAN 1. Make NPO after midnight except po meds 2. GI/DVT PPX 3. Medical optimization / clearance 4. IV hpearin to be discontinued at 1300 on 01/10
[2019-01-09] MEDS ORDERED: PT OWN MED DRAWER 7, Y5N ONE (20:28)
[2019-01-09] MEDS: HEPARIN INFUSION - 25,000 UNITS/500 ML INFUS.BAG IV SCH (22:33)
[2019-01-09] MEDS: CHLORHEXIDINE GLUCONATE 4% CLEANSER FOR DECOLONIZATION TP SCH (22:33)
[2019-01-09] MEDS: ROSUVASTATIN CA 5 MG TABLET (FP) PO SCH (22:33)
[2019-01-10] MEDS: ALBUTEROL SO4 0.083% IH SOL 2.5 MG/3 ML VIAL.NEB. NEB PRN ×3 (03:34→21:00)
[2019-01-10 07:05] LABS: ALBUMIN 2.7 g/dl (3.4-5.0); ALK PHOS 74 U/L (45-117); ANION GAP 9 MMOL/L (8-16); BILIRUBIN,TOTAL 0.5 mg/dL (0.2-1); BLOOD UREA NITROGEN 49 mg/dL (7-18); CALCIUM 7.9 mg/dL (8.5-10.1); CHLORIDE 101 mmol/L (98-107); CO2 27 mmol/L (21-32); CREATININE 4.7 mg/dL (0.55-1.3); GLUCOSE,RANDOM 92 mg/dL (74-106); MAGNESIUM 2.4 mg/dL (1.8-2.4); PHOSPHOROUS 5.4 mg/dL (2.5-4.9); SGOT/AST 25 U/L (15-37); SGPT/ALT 20 U/L (13-61); SODIUM 137 mmol/L (136-145); TOT PROT 5.8 g/dl (6.4-8.2)
[2019-01-10 07:18] LABS: POTASSIUM 2.7 mmol/L (3.5-5.1)
[2019-01-10] MEDS: KCL 10 MEQ IVPB 10 MEQ/100 ML INFUS.BAG IVPB SCH ×4 (08:07→12:04)
--- NOTE | 2019-01-10 08:14 | PN ---
Physical Exam: SUBJECTIVE: Patient seen and examined this AM. He states he is feeling similar today to yesterday and that his breathing status is about the same. OBJECTIVE: Vital Signs Period Temp Pulse Resp BP Sys/Ascencio Pulse Ox Last 24 Hr 98.0 F-99.4 F 52-79 22-29 97-113/48-81 94-98 GEN: A&O, no acute distress HEENT: PERRL, moist mucus membranes NECK: Supple, no lymphadenopathy HEART: RRR, no murmurs noted LUNGS: diffuse rhonchi/crackles/wheezes similar to yesterday, decreased breath sounds diffusely ABDOMEN: Soft, nontender, normoactive bowel sounds EXTREMITIES: 1+ edema in b/l LE, no calf tenderness noted Laboratory Results - last 24 hr 01/06/19 01/09/19 01/09/19 09:40 07:55 12:40 PTT (Actin FS) 54.3 H Sodium Potassium Chloride Carbon Dioxide Anion Gap BUN Creatinine Creat Clearance w eGFR Random Glucose Calcium Phosphorus Magnesium Total Bilirubin AST ALT Alkaline Phosphatase Total Protein Albumin Hep C Ab Diagnostic <0.1 Blood Type O POSITIVE Antibody Screen Negative Crossmatch See Detail 01/10/19 01/10/19 05:30 05:30 PTT (Actin FS) 54.4 H Sodium 137 Potassium 2.7 L* Chloride 101 Carbon Dioxide 27 Anion Gap 9 BUN 49 H Creatinine 4.7 H Creat Clearance w eGFR 11.80 Random Glucose 92 Calcium 7.9 L Phosphorus 5.4 H Magnesium 2.4 Total Bilirubin 0.5 AST 25 ALT 20 Alkaline Phosphatase 74 Total Protein 5.8 L Albumin 2.7 L Hep C Ab Diagnostic Blood Type Antibody Screen Crossmatch Active Medications Generic Name Dose Route Start Last Admin Trade Name Freq PRN Reason Stop Dose Admin Albuterol Sulfate 1 amp 01/08/19 22:48 01/10/19 03:34 Ventolin 0.083% Nebulizer Soln - NEB 1 amp Q4H PRN Administration SHORT OF BREATH/WHEEZING Artificial Tears 1 drop 01/02/19 14:09 01/04/19 09:55 Artificial Tears OU 1 drop TID PRN Administration DRY EYES Chlorhexidine Gluconate 1 applic 12/31/18 22:00 01/09/19 22:33 Hibiclens For Decolonization - TP 1 applic HS JAYCE Administration Heparin Sodium (Porcine) 1,000 unit 01/03/19 11:54 Heparin - IVPUSH PRN PRN Heparin Heparin Sodium (Porcine) 5,000 unit 01/03/19 11:54 Heparin - IVPUSH PRN PRN Heparin Heparin Sodium/Dextrose 25,000 units in 500 mls @ 20 mls/hr 01/03/19 12:00 22:33 Heparin Infusion - IV 900 units/hr TITR JAYCE 18 mls/hr Administration Protocol 1,000 UNITS/HR Sodium Chloride 250 mls @ 3,000 mls/hr 01/08/19 12:52 Normal Saline - IV 01/09/19 12:52 PRN PRN Hypotension during Dialysis Potassium Chloride 10 meq in 100 mls @ 100 mls/hr 01/10/19 07:30 01/10/19 08: 07 Potassium Chloride 10 Meq Premix Ivpb - IVPB 01/10/19 09:29 100 mls/hr Q60M JAYCE Administration Potassium Chloride 40 meq 01/10/19 10:00 Potassium Chloride Oral Liquid PO 01/10/19 22:01 BID JAYCE Rosuvastatin Calcium 5 mg 01/02/19 22:00 01/09/19 22:33 Crestor - PO 5 mg HS JAYCE Administration ASSESSMENT/PLAN: Patient is an 88 year old male who presented for worsening shortness of breath and was found to have CHF exacerbation with hypotension. Patient admitted to ICU for further monitoring and management. NEURO -Awake, Alert and oriented -On no sedation PULMONARY #Acute Hypoxic Respiratory Failure -Likely ATN without recovery of renal function and inadequate diuresis -Requiring High Flow O2 for pressure support and respiratory status, attempt to wean as able -Did not respond to lasix IV or drip, requiring HD for fluid removal at this time -Renal and bladder US without any signs of obstruction -Strict I&O's -Daily weights -Cardiology consult appreciated -Retrial of lasix without much urine output overnight, will require permacath today for further UF HD #COPD -No acute exacerbation -Albuterol nebulizer PRN -Maintain 02 Saturation >90% CARDIOLOGY #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 -Likely Cardio-Renal Syndrome -Repeat ECHO with normal EF, dilated RV and RA -Off pressors -Low sodium diet -Lester placed for strict I&O's -Daily weights -Hold B-mukesh until more hemodynamically stable #Permanent atrial fibrillation -[id number] -Patient on Warfarin at home, INR improved -Heparin drip for now #CAD s/p CABG -s/p PCI/LUIS EDUARDO to LAD -Continue Rosuvastatin, ASA and BB as hemodynamically tolerates -Maintain Hgb > 8 #HTN -Hold anti-htn medications as patient is hypotensive -Currently off Norepinephrine, continue to monitor MAPs #HLD -Continue home Crestor NEPHROLOGY #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 -Likely ATN -Baseline around 1.5 -Kidney/Bladder U/S without signs of obstruction -Avoid nephrotoxic medications -Renally dose medications -Will hold CAROLYN/ARB for now -Nephrology consult appreciated -Monitor BMP -Requiring dialysis for volume removal, though urine output and color slightly improved -For Permacath placement today INFECTIOUS DISEASE #UTI - Resolved -Completed course of Rocephin -Urine culture grew Enterococcus HEMATOLOGY #Supratherapeutic INR - resolved -Improved, Heparin drip in lieu of warfarin for now #Macrocytic Anemia -With possible superimposed chronic anemia -Renal consult appreciated -Continue to monitor CBC -Iron studies normal F/E/N -None -HyperPhos. Continue to monitor -Sodium controlled diet Prophylaxis -SCD's, Heparin Drip, consider reverting to warfarin following permacath insertion -No GI required LINES -For Permacath placement today Disposition -Full code -Monitor in ICU on High Flow O2 Visit type - Emergency Visit Emergency Visit: Yes ED Registration Date: 12/30/18 Care time: The patient presented to the Emergency Department on the above date and was hospitalized for further evaluation of their emergent condition. - New Patient This patient is new to me today: No - Critical Care Critical Care patient: Yes Total Critical Care Time (in minutes): 36 Critical Care Statement: The care of this patient involved high complexity decision making to prevent further life threatening deterioration of the patient 's condition and/or to evaluate & treat vital organ system(s) failure or risk of failure.
[2019-01-10] MEDS: POTASSIUM CHLORIDE ORAL LIQUID 20 MEQ/15 ML PO SCH ×2 (09:31→22:34)
[2019-01-10] MEDS ORDERED: POTASSIUM CHLORIDE ORAL LIQUID 20 MEQ/15 ML PO SCH (10:00)
--- NOTE | 2019-01-10 11:06 | PN ---
Teaching Attending Note Name of Resident: Venancio Combs ATTENDING PHYSICIAN STATEMENT I saw and evaluated the patient. I reviewed the resident's note and discussed the case with the resident. I agree with the resident's findings and plan as documented. SUBJECTIVE: Patient seen and examined in the ICU. Remains mildly tachypneic at rest on HFOT. Denies CP. Dry cough is somewhat better. For Permacath today CXR: Bilateral congestive changes / pleural effusions OBJECTIVE: Intake & Output 01/07/19 01/08/19 01/09/19 01/10/19 23:59 23:59 23:59 23:59 Intake Total 778 867 859 226 Output Total 200 50 90 50 Balance 578 817 769 176 Weight 204 lb 9.423 oz 201 lb 197 lb 3.2 oz 196 lb 6.4 oz Last Vital Signs Temp Pulse Resp BP Pulse Ox 98.3 F 72 28 H 118/46 L 96 01/10/19 09:58 01/10/19 09:58 01/10/19 09:58 01/10/19 08:00 01/10/19 09:00 Active Medications Albuterol Sulfate (Ventolin 0.083% Nebulizer Soln -) 1 amp NEB Q4H PRN PRN Reason: SHORT OF BREATH/WHEEZING Last Admin: 01/10/19 08:50 Dose: 1 amp Artificial Tears (Artificial Tears) 1 drop OU TID PRN PRN Reason: DRY EYES Last Admin: 01/04/19 09:55 Dose: 1 drop Chlorhexidine Gluconate (Hibiclens For Decolonization -) 1 applic TP HS JAYCE Last Admin: 01/09/19 22:33 Dose: 1 applic Heparin Sodium (Porcine) (Heparin -) 1,000 unit IVPUSH PRN PRN PRN Reason: Heparin Heparin Sodium (Porcine) (Heparin -) 5,000 unit IVPUSH PRN PRN PRN Reason: Heparin Heparin Sodium/Dextrose (Heparin Infusion -) 25,000 units in 500 mls @ 20 mls/ hr IV TITR JAYCE; Protocol Last Admin: 01/09/19 22:33 Dose: 900 units/hr, 18 mls/hr Sodium Chloride (Normal Saline -) 250 mls @ 3,000 mls/hr IV PRN PRN PRN Reason: Hypotension during Dialysis Stop: 01/09/19 12:52 Potassium Chloride (Potassium Chloride 10 Meq Premix Ivpb -) 10 meq in 100 mls @ 100 mls/hr IVPB Q60M [facility] Stop: 01/10/19 13:14 Potassium Chloride (Potassium Chloride Oral Liquid) 40 meq PO BID [facility] Stop: 01/10/19 22:01 Last Admin: 01/10/19 09:31 Dose: 40 meq Rosuvastatin Calcium (Crestor -) 5 mg PO HS [facility] Last Admin: 01/09/19 22:33 Dose: 5 mg Gen: Awake and alert, Mildly tachypneic at rest on HFOT Heart: RRR Lung: Bilateral coarse rhonchi/crackles Abd: soft, nontender Ext: + edema Laboratory Results - last 24 hr 01/06/19 01/09/19 01/10/19 09:40 12:40 05:30 PTT (Actin FS) 54.4 H Sodium Potassium Chloride Carbon Dioxide Anion Gap BUN Creatinine Creat Clearance w eGFR Random Glucose Calcium Phosphorus Magnesium Total Bilirubin AST ALT Alkaline Phosphatase Total Protein Albumin Hep C Ab Diagnostic <0.1 Blood Type O POSITIVE Antibody Screen Negative Crossmatch See Detail 01/10/19 05:30 PTT (Actin FS) Sodium 137 Potassium 2.7 L* Chloride 101 Carbon Dioxide 27 Anion Gap 9 BUN 49 H Creatinine 4.7 H Creat Clearance w eGFR 11.80 Random Glucose 92 Calcium 7.9 L Phosphorus 5.4 H Magnesium 2.4 Total Bilirubin 0.5 AST 25 ALT 20 Alkaline Phosphatase 74 Total Protein 5.8 L Albumin 2.7 L Hep C Ab Diagnostic Blood Type Antibody Screen Crossmatch ASSESSMENT AND PLAN: Acute Hypoxic Respiratory Failure Acute on Chronic Diastolic Heart Failure Volume Overload Atrial Fibrillation Acute on Chronic Renal Failure COPD Anemia Hypercholesterolemia - For Permacath placement - Closely monitor urine output, creatinine - Daily weights - O2 to keep SpO2 >90% - HFOT / BiPAP to assist in work of breathing - rate control - AC - ICU monitoring for tenuous hemodynamics and respiratory monitoring and he is on HFOT Dr Guevara critical care time spent in reviewing chart, evaluating patient and formulating plan 35 min
[2019-01-10] MEDS: HEPARIN INFUSION - 25,000 UNITS/500 ML INFUS.BAG IV SCH (12:03)
--- NOTE | 2019-01-10 12:03 | PN ---
Progress Note, Physician History of Present Illness: Remains on HFO2, hemodynamics stable off pressors, planned for HD via PC. - Current Medication List Current Medications: Active Medications Albuterol Sulfate (Ventolin 0.083% Nebulizer Soln -) 1 amp NEB Q4H PRN PRN Reason: SHORT OF BREATH/WHEEZING Last Admin: 01/10/19 08:50 Dose: 1 amp Artificial Tears (Artificial Tears) 1 drop OU TID PRN PRN Reason: DRY EYES Last Admin: 01/04/19 09:55 Dose: 1 drop Chlorhexidine Gluconate (Hibiclens For Decolonization -) 1 applic TP HS JAYCE Last Admin: 01/09/19 22:33 Dose: 1 applic Heparin Sodium (Porcine) (Heparin -) 1,000 unit IVPUSH PRN PRN PRN Reason: Heparin Heparin Sodium (Porcine) (Heparin -) 5,000 unit IVPUSH PRN PRN PRN Reason: Heparin Heparin Sodium/Dextrose (Heparin Infusion -) 25,000 units in 500 mls @ 20 mls/ hr IV TITR JAYCE; Protocol Last Admin: 01/09/19 22:33 Dose: 900 units/hr, 18 mls/hr Sodium Chloride (Normal Saline -) 250 mls @ 3,000 mls/hr IV PRN PRN PRN Reason: Hypotension during Dialysis Stop: 01/09/19 12:52 Potassium Chloride (Potassium Chloride 10 Meq Premix Ivpb -) 10 meq in 100 mls @ 100 mls/hr IVPB Q60M JAYCE Stop: 01/10/19 13:14 Last Admin: 01/10/19 11:07 Dose: 100 mls/hr Potassium Chloride (Potassium Chloride Oral Liquid) 40 meq PO BID JAYCE Stop: 01/10/19 22:01 Last Admin: 01/10/19 09:31 Dose: 40 meq Rosuvastatin Calcium (Crestor -) 5 mg PO HS JAYCE Last Admin: 01/09/19 22:33 Dose: 5 mg - Objective Vital Signs: Vital Signs Temperature 98.3 F 01/10/19 10:00 Pulse Rate 72 01/10/19 10:00 Respiratory Rate 28 H 01/10/19 10:00 Blood Pressure 113/45 L 01/10/19 10:00 O2 Sat by Pulse Oximetry (%) 96 01/10/19 09:00 Constitutional: Yes: No Distress, Calm Neck: Yes: Supple Cardiovascular: Yes: Pulse Irregular Respiratory: Yes: Regular, On Nasal O2 Gastrointestinal: Yes: Normal Bowel Sounds, Soft Edema: Yes Labs: CBC, BMP 01/09/19 05:30 01/10/19 05:30 INR, PTT INR 1.93 (0.83-1.09) H 01/03/19 05:30 - ....Imaging Chest X-ray: Report Reviewed (Congestion and effusions) Problem List - Problems (1) Smhdk-yf-xbbssik kidney injury Code(s): N17.9 - ACUTE KIDNEY FAILURE, UNSPECIFIED; N18.9 - CHRONIC KIDNEY DISEASE, UNSPECIFIED Qualifiers: Acute renal failure type: unspecified Chronic kidney disease stage: unspecified stage Qualified Code(s): N17.9 - Acute kidney failure, unspecified ; N18.9 - Chronic kidney disease, unspecified (2) Acute on chronic diastolic (congestive) heart failure Code(s): I50.33 - ACUTE ON CHRONIC DIASTOLIC (CONGESTIVE) HEART FAILURE (3) CAD (coronary artery disease) Code(s): I25.10 - ATHSCL HEART DISEASE OF [place] CORONARY ARTERY W/O ANG PCTRS Qualifiers: Coronary Disease-Associated Artery/Lesion type: [place] artery [place] vs. transplanted heart: [place] heart Associated angina: without angina Qualified Code(s): I25.10 - Atherosclerotic heart disease of [place] coronary artery without angina pectoris (4) COPD (chronic obstructive pulmonary disease) Code(s): J44.9 - CHRONIC OBSTRUCTIVE PULMONARY DISEASE, UNSPECIFIED Qualifiers: COPD type: unspecified COPD Qualified Code(s): J44.9 - Chronic obstructive pulmonary disease, unspecified (5) Chronic anemia Code(s): D64.9 - ANEMIA, UNSPECIFIED (6) Chronic anticoagulation Code(s): Z79.01 - SKILLED NURSING (CURRENT) USE OF ANTICOAGULANTS (7) HTN (hypertension) Code(s): I10 - ESSENTIAL (PRIMARY) HYPERTENSION Qualifiers: Hypertension type: essential hypertension Qualified Code(s): I10 - Essential (primary) hypertension (8) Hx of CABG Code(s): Z95.1 - PRESENCE OF AORTOCORONARY BYPASS GRAFT (9) SOB (shortness of breath) Code(s): R06.02 - SHORTNESS OF BREATH (10) Status post insertion of drug-eluting stent into left anterior descending ( LAD) artery Code(s): Z95.5 - PRESENCE OF CORONARY ANGIOPLASTY IMPLANT AND GRAFT (11) Anemia Code(s): D64.9 - ANEMIA, UNSPECIFIED Qualifiers: Anemia type: unspecified type Qualified Code(s): D64.9 - Anemia, unspecified (12) Atrial fibrillation Code(s): I48.91 - UNSPECIFIED ATRIAL FIBRILLATION Qualifiers: Atrial fibrillation type: permanent Qualified Code(s): I48.2 - Chronic atrial fibrillation (13) Hyperlipidemia Code(s): E78.5 - HYPERLIPIDEMIA, UNSPECIFIED Qualifiers: Hyperlipidemia type: pure hypercholesterolemia Qualified Code(s): E78.00 - Pure hypercholesterolemia, unspecified; E78.0 - Pure hypercholesterolemia (14) Subendocardial ischemia Code(s): I24.8 - OTHER FORMS OF ACUTE ISCHEMIC HEART DISEASE Assessment/Plan 12/31/2018 Echo: Normal LV size and fxn LVEF 60%, mod dilated RV with mild decreased RV fxn, mild-mod AUTUMN, mild MR, mod TR RVSP 31 mmHg 1. Acute Hypoxic Respiratory Failure 2. Acute on chronic diastolic heart failure 3. CAD post CABG/PCI (stent) evidence of demand ischemia angina pectoris 4. Persistent atrial fibrillation [id number] score of 5 on Coumadin therapy 5. Hypertension 6. Hypercholesterolemia 7. MR mild to moderate in severity 8. TR moderate in severity 9. Carotid stenosis, moderate in severity 10. COPD 11. Acute on chronic kidney disease, initiated HD 12. Anemia PLAN: 1. Ideally resume Toprol XL 25 qd, hemodynamics permitting 2. Ideally should be on ACEI or ARBS, pending renal function stabilization or HD initiation 3. Continue Crestor 5 qhs 4. Continue Heparin gtt with caution in view of the above noted anemia 5. HD via PC per renal service, Trial of Lasix, urine output, creatinine 6. Titrate HFOT to keep SpO2 >90% 7. Replete K
--- NOTE | 2019-01-10 14:00 | PN ---
Progress Note, Physician History of Present Illness: Pt seen and examined at bedside. He is awake and alert. He is going for permacath today. He still has shortness of breath. - Current Medication List Current Medications: Active Medications Albuterol Sulfate (Ventolin 0.083% Nebulizer Soln -) 1 amp NEB Q4H PRN PRN Reason: SHORT OF BREATH/WHEEZING Last Admin: 01/10/19 08:50 Dose: 1 amp Artificial Tears (Artificial Tears) 1 drop OU TID PRN PRN Reason: DRY EYES Last Admin: 01/04/19 09:55 Dose: 1 drop Chlorhexidine Gluconate (Hibiclens For Decolonization -) 1 applic TP HS JAYCE Last Admin: 01/09/19 22:33 Dose: 1 applic Heparin Sodium (Porcine) (Heparin -) 1,000 unit IVPUSH PRN PRN PRN Reason: Heparin Heparin Sodium (Porcine) (Heparin -) 5,000 unit IVPUSH PRN PRN PRN Reason: Heparin Heparin Sodium/Dextrose (Heparin Infusion -) 25,000 units in 500 mls @ 20 mls/ hr IV TITR JAYCE; Protocol Last Admin: 01/10/19 12:03 Dose: 900 units/hr, 18 mls/hr Sodium Chloride (Normal Saline -) 250 mls @ 3,000 mls/hr IV PRN PRN PRN Reason: Hypotension during Dialysis Stop: 01/09/19 12:52 Potassium Chloride (Potassium Chloride Oral Liquid) 40 meq PO BID JAYCE Stop: 01/10/19 22:01 Last Admin: 01/10/19 09:31 Dose: 40 meq Rosuvastatin Calcium (Crestor -) 5 mg PO HS [facility] Last Admin: 01/09/19 22:33 Dose: 5 mg - Objective Vital Signs: Vital Signs Temperature 98.3 F 01/10/19 10:00 Pulse Rate 62 01/10/19 13:00 Respiratory Rate 28 H 01/10/19 12:00 Blood Pressure 108/50 L 01/10/19 12:00 O2 Sat by Pulse Oximetry (%) 96 01/10/19 13:00 Constitutional: Yes: Calm Eyes: Yes: Conjunctiva Clear HENT: Yes: Atraumatic Cardiovascular: Yes: S1, S2 Respiratory: Yes: On Nasal O2, Rhonchi Gastrointestinal: Yes: Soft Genitourinary: Yes: Lester Present, Oliguria Musculoskeletal: Yes: Muscle Weakness Edema: Yes Edema: LLE: 1+, RLE: 1+ Neurological: Yes: Oriented Psychiatric: Yes: Oriented Labs: CBC, BMP 01/09/19 05:30 INR, PTT INR 1.93 (0.83-1.09) H 01/03/19 05:30 - ....Imaging Chest X-ray: Report Reviewed Problem List - Problems (1) [id number] kidney injury Code(s): N17.9 - ACUTE KIDNEY FAILURE, UNSPECIFIED; N18.9 - CHRONIC KIDNEY DISEASE, UNSPECIFIED Qualifiers: Acute renal failure type: unspecified Chronic kidney disease stage: unspecified stage Qualified Code(s): N17.9 - Acute kidney failure, unspecified ; N18.9 - Chronic kidney disease, unspecified (2) Congestive heart failure Code(s): I50.9 - HEART FAILURE, UNSPECIFIED Qualifiers: Heart failure type: unspecified Heart failure chronicity: acute on chronic Qualified Code(s): I50.9 - Heart failure, unspecified Assessment/Plan Current Medications Generic Name Dose Route Start Last Admin Trade Name Freq PRN Reason Stop Dose Admin Albuterol Sulfate 1 amp 01/08/19 22:48 01/10/19 08:50 Ventolin 0.083% Nebulizer Soln - NEB 1 amp Q4H PRN Administration SHORT OF BREATH/WHEEZING Artificial Tears 1 drop 01/02/19 14:09 01/04/19 09:55 Artificial Tears OU 1 drop TID PRN Administration DRY EYES Chlorhexidine Gluconate 1 applic 12/31/18 22:00 01/09/19 22:33 Hibiclens For Decolonization - TP 1 applic HS JAYCE Administration Heparin Sodium (Porcine) 1,000 unit 01/03/19 11:54 Heparin - IVPUSH PRN PRN Heparin Heparin Sodium (Porcine) 5,000 unit 01/03/19 11:54 Heparin - IVPUSH PRN PRN Heparin Heparin Sodium/Dextrose 25,000 units in 500 mls @ 20 mls/hr 01/03/19 12:00 12:03 Heparin Infusion - IV 900 units/hr TITR JAYCE 18 mls/hr Administration Protocol 1,000 UNITS/HR Sodium Chloride 250 mls @ 3,000 mls/hr 03/27/19 12:52 Normal Saline - IV 01/09/19 12:52 PRN PRN Hypotension during Dialysis Potassium Chloride 40 meq 01/10/19 10:00 01/10/19 09:31 Potassium Chloride Oral Liquid PO 01/10/19 22:01 40 meq BID JAYCE Administration Rosuvastatin Calcium 5 mg 01/02/19 22:00 01/09/19 22:33 Crestor - PO 5 mg HS JAYCE Administration Impression 1. ANGELA 2. CKD 3. CHF 4. hypotension 5. resp failure requiring bipap 6. a-fib 7. hld 8. bilateral pleural effusions 9. anemia 10. hypokalemia Plan - pt going for permacath - replace potassium, follow repeat potassium - HD after permacath - will UF volume - evaluate for UD/UF tomorrow as well - discussed plan with ICU - discussed with family - pt likely has ATN - monitor pulse ox - avoid nsaids - prognosis guarded
[2019-01-10 14:18] LABS: ANION GAP 8 MMOL/L (8-16); BLOOD UREA NITROGEN 52 mg/dL (7-18); CALCIUM 8.2 mg/dL (8.5-10.1); CHLORIDE 103 mmol/L (98-107); CO2 26 mmol/L (21-32); CREATININE 4.9 mg/dL (0.55-1.3); GLUCOSE,RANDOM 94 mg/dL (74-106); POTASSIUM 3.5 mmol/L (3.5-5.1); SODIUM 137 mmol/L (136-145)
--- NOTE | 2019-01-10 16:56 | PN ---
Teaching Attending Note Name of Resident: Ernestina Hodges ATTENDING PHYSICIAN STATEMENT I saw and evaluated the patient. I reviewed the resident's note and discussed the case with the resident. I agree with the resident's findings and plan as documented with exceptions below. SUBJECTIVE: Patient seen and examined. overall unchanged, still weak and dyspneic. OBJECTIVE: Vital Signs Period Temp Pulse Resp BP Sys/Ascencio Pulse Ox Last 24 Hr 98.0 F-98.7 F 56-79 22-29 103-123/45-81 94-99 Intake & Output 01/07/19 01/08/19 01/09/19 01/10/19 23:59 23:59 23:59 23:59 Intake Total 778 867 859 226 Output Total 200 50 90 150 Balance 578 817 769 76 Weight 204 lb 9.423 oz 201 lb 197 lb 3.2 oz 196 lb 6.4 oz General: weak looking, dyspneic in bed Neck: soft, supple, neck vein distension Chest: decreased air entry, basilar rales Abdomen;Soft, NT Extremities: unchanged pedal edema Home Medications Medication Instructions Recorded Ranolazine [Ranexa -] 500 mg PO BID 03/22/12 Cholecalciferol (Vitamin D3) 2,000 unit PO DAILY 03/13/18 [Vitamin D -] Vit A/Vit C/Vit E/Zinc/Copper 1 each PO DAILY 03/13/18 [Preservision Areds Tablet] Metoprolol Succinate [Toprol Xl] 25 mg PO DAILY 03/18/18 Losartan Potassium [Cozaar -] 25 mg PO DAILY tablet 10/06/18 Warfarin Sodium 5 mg PO HS 30 Days #30 tablet 10/06/18 Allopurinol [Zyloprim -] 150 mg PO DAILY 12/30/18 Furosemide [Lasix] 40 mg PO DAILY 12/30/18 Rosuvastatin [Crestor -] 3 mg PO HS 12/30/18 Active Medications Albumin Human (Albumin Human 25%) 12.5 gm IVPB Q30M JAYCE Albuterol Sulfate (Ventolin 0.083% Nebulizer Soln -) 1 amp NEB Q4H PRN PRN Reason: SHORT OF BREATH/WHEEZING Last Admin: 01/10/19 08:50 Dose: 1 amp Artificial Tears (Artificial Tears) 1 drop OU TID PRN PRN Reason: DRY EYES Last Admin: 01/04/19 09:55 Dose: 1 drop Chlorhexidine Gluconate (Hibiclens For Decolonization -) 1 applic TP HS [facility] Last Admin: 01/09/19 22:33 Dose: 1 applic Heparin Sodium (Porcine) (Heparin -) 1,000 unit IVPUSH PRN PRN PRN Reason: Heparin Heparin Sodium (Porcine) (Heparin -) 5,000 unit IVPUSH PRN PRN PRN Reason: Heparin Heparin Sodium/Dextrose (Heparin Infusion -) 25,000 units in 500 mls @ 20 mls/ hr IV TITR JAYCE; Protocol Last Titration: 01/10/19 13:00 Dose: 0 units/hr, 0 mls/hr Sodium Chloride (Normal Saline -) 250 mls @ 3,000 mls/hr IV PRN PRN PRN Reason: Hypotension during Dialysis Stop: 01/09/19 12:52 Sodium Chloride (Normal Saline -) 250 mls @ 3,000 mls/hr IV PRN PRN PRN Reason: Hypotension during Dialysis Stop: 01/11/19 14:34 Potassium Chloride (Potassium Chloride Oral Liquid) 40 meq PO BID JAYCE Stop: 01/10/19 22:01 Last Admin: 01/10/19 09:31 Dose: 40 meq Rosuvastatin Calcium (Crestor -) 5 mg PO HS [facility] Last Admin: 01/09/19 22:33 Dose: 5 mg Laboratory Results - last 24 hr 01/06/19 01/09/19 01/10/19 09:40 12:40 05:30 PTT (Actin FS) 54.4 H Sodium Potassium Chloride Carbon Dioxide Anion Gap BUN Creatinine Creat Clearance w eGFR Random Glucose Calcium Phosphorus Magnesium Total Bilirubin AST ALT Alkaline Phosphatase Total Protein Albumin Hep C Ab Diagnostic <0.1 Blood Type O POSITIVE Antibody Screen Negative Crossmatch See Detail 01/10/19 01/10/19 05:30 13:00 PTT (Actin FS) Sodium 137 137 Potassium 2.7 L* 3.5 Chloride 101 103 Carbon Dioxide 27 26 Anion Gap 9 8 BUN 49 H 52 H Creatinine 4.7 H 4.9 H Creat Clearance w eGFR 11.80 11.24 Random Glucose 92 94 Calcium 7.9 L 8.2 L Phosphorus 5.4 H Magnesium 2.4 Total Bilirubin 0.5 AST 25 ALT 20 Alkaline Phosphatase 74 Total Protein 5.8 L Albumin 2.7 L Hep C Ab Diagnostic Blood Type Antibody Screen Crossmatch ASSESSMENT AND PLAN: 88 yom CAD s/p CABG (JHAEVRI to mLAD, SVG to RPDA), s/p PCI/LUIS EDUARDO to LAD, persistent AF on Coumadin, diastolic dysfunction with h/o failure, HTN, hypercholesterolemia and carotid stenosis, 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 -Acute on chronic diastolic+/- systolic heart failure exacerbation (prior on lasix drip, now on HD) -Acute hypoxic repiratory failure -Cardiogenic shock off pressors (Prior on dobutamine then levophed drip_ -Hypotension suspect cardiogenic -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, suspect cardiorenal from CHF -Perisistent Atrial fibrillation on coumadin -Anemia, suspect multifactorial from renal disease, blood draws, monitor for occult bleed -Coumadin coagulopathy -CAD s/p CABG (JHAVERI to mLAD, SVG to RPDA), s/p PCI/LUIS EDUARDO to LAD -HTN -HLD -Carotid stenosis PLan: Ongoing HD for fluid removal. respiratory status still tenuous. High flow oxygen , Bipap prn. For permacath today. metoprolol held given bradycardia and hypotension. Heparin drip. Crestor. Resume ranexa as able. s/p 1 unit PRBC, monitor. DVTPPX heparin drip Prognosis overall poor. Pallliative care to address overall goals of care. Dispo ICU level of care. PLan discussed with patient. Care co-ordinated with ICU/cardiology/nephrology. Total critical care time spent 36 min.
[2019-01-10] MEDS ORDERED: KETAMINE HCL 200 MG/20 ML VIAL ONE (17:36)
[2019-01-10] MEDS ORDERED: MIDAZOLAM HCL 2 MG/2 ML SINGLE DOSE VIAL ONE (17:40)
--- NOTE | 2019-01-10 18:11 | OP ---
Operative Note - Note: Operative Date: 01/10/19 Pre-Operative Diagnosis: ESRD Operation: Insertion of permacath Post-Operative Diagnosis: Same as Pre-op Surgeon: Deangelo Lang Anesthesia: Fractional Estimated Blood Loss (mls): 20 Operative Report Dictated: Yes
--- NOTE | 2019-01-10 18:57 | PN ---
Physical Exam: SUBJECTIVE: Patient seen and examined; getting permacath today OBJECTIVE: Vital Signs Period Temp Pulse Resp BP Sys/Ascencio Pulse Ox Last 24 Hr 98.0 F-98.7 F 56-79 22-29 103-123/45-81 94-99 GENERAL: The patient is awake, alert, and fully oriented, in no acute distress. LUNGS: Breath sounds equal, clear to auscultation bilaterally, no wheezes, no crackles, no accessory muscle use. HEART: Regular rate and rhythm, S1, S2 without murmur, rub or gallop. ABDOMEN: Soft, nontender, nondistended, normoactive bowel sounds, no guarding, no rebound, no hepatosplenomegaly, no masses. EXTREMITIES: 2+ pulses, warm, well-perfused, +leg swelling NEUROLOGICAL: Cranial nerves II through XII grossly intact. Normal speech, gait not observed. Laboratory Results - last 24 hr 01/06/19 01/09/19 01/10/19 09:40 12:40 05:30 PTT (Actin FS) 54.4 H Sodium Potassium Chloride Carbon Dioxide Anion Gap BUN Creatinine Creat Clearance w eGFR Random Glucose Calcium Phosphorus Magnesium Total Bilirubin AST ALT Alkaline Phosphatase Total Protein Albumin Hep C Ab Diagnostic <0.1 Blood Type O POSITIVE Antibody Screen Negative Crossmatch See Detail 01/10/19 01/10/19 05:30 13:00 PTT (Actin FS) Sodium 137 137 Potassium 2.7 L* 3.5 Chloride 101 103 Carbon Dioxide 27 26 Anion Gap 9 8 BUN 49 H 52 H Creatinine 4.7 H 4.9 H Creat Clearance w eGFR 11.80 11.24 Random Glucose 92 94 Calcium 7.9 L 8.2 L Phosphorus 5.4 H Magnesium 2.4 Total Bilirubin 0.5 AST 25 ALT 20 Alkaline Phosphatase 74 Total Protein 5.8 L Albumin 2.7 L Hep C Ab Diagnostic Blood Type Antibody Screen Crossmatch Active Medications Generic Name Dose Route Start Last Admin Trade Name Freq PRN Reason Stop Dose Admin Albumin Human 12.5 gm 01/10/19 14:45 Albumin Human 25% IVPB Q30M JAYCE Albuterol Sulfate 1 amp 01/08/19 22:48 01/10/19 08:50 Ventolin 0.083% Nebulizer Soln - NEB 1 amp Q4H PRN Administration SHORT OF BREATH/WHEEZING Artificial Tears 1 drop 01/02/19 14:09 01/04/19 09:55 Artificial Tears OU 1 drop TID PRN Administration DRY EYES Chlorhexidine Gluconate 1 applic 01/10/19 22:00 Hibiclens For Decolonization - TP HS JAYCE Heparin Sodium (Porcine) 1,000 unit 01/03/19 11:54 Heparin - IVPUSH PRN PRN Heparin Heparin Sodium (Porcine) 5,000 unit 01/03/19 11:54 Heparin - IVPUSH PRN PRN Heparin Heparin Sodium/Dextrose 25,000 units in 500 mls @ 20 mls/hr 01/03/19 12:00 13:00 Heparin Infusion - IV 0 units/hr TITR JAYCE 0 mls/hr Titration Protocol 1,000 UNITS/HR Sodium Chloride 250 mls @ 3,000 mls/hr 01/08/19 12:52 Normal Saline - IV 01/09/19 12:52 PRN PRN Hypotension during Dialysis Sodium Chloride 250 mls @ 3,000 mls/hr 01/10/19 14:34 Normal Saline - IV 01/11/19 14:34 PRN PRN Hypotension during Dialysis Mupirocin 1 applic 01/10/19 22:00 Bactroban Ointment (For Decolonization) - NS 01/15/19 21:59 BID JAYCE Potassium Chloride 40 meq 01/10/19 10:00 01/10/19 09:31 Potassium Chloride Oral Liquid PO 01/10/19 22:01 40 meq BID JAYCE Administration Rosuvastatin Calcium 5 mg 01/02/19 22:00 01/09/19 22:33 Crestor - PO 5 mg HS JAYCE Administration ASSESSMENT/PLAN: This is a 88 year old male with a history of CAD s/p CABG, s/p PCI/LUIS EDUARDO , persistent atrial fibrillation, diastolic congestive heart failure, HTN, carotid stenosis who presented with worsening SON, orthopnea, b/l leg edema, found to be in acute heart failure. #Acute on chronic diastolic heart failure -daily weights, strict I/Os; christina in place -cardio , renal -HD; lasix prn #Acute hypoxic respiratory failure - sec to vol overload; now high flow #Atrial fibrillation -rate controlled -on heparin ggt #Acute on chronic kidney disease; permacath today -HD s -cardio; renal vs sec to hypotension; -urine lytes -stirct i/os -ua, uc #Macrocytic Anemia; monitor for acute bleed; -stool for acute blood negative -s/p 1UPRBC #thrombocytopenia: -ML due to congestive changes -abdominal US +hepatomegaly; #hypokalemia; -replace #hyperphosphetema; sec renal failure -hd; phos lo #UTI: -completed antibiotics course #COPD -; cont IH bronchodilators #HTN -hold home meds; #HLD -statin Diet regular Visit type - Emergency Visit Emergency Visit: Yes ED Registration Date: 12/30/18 Care time: The patient presented to the Emergency Department on the above date and was hospitalized for further evaluation of their emergent condition. - New Patient This patient is new to me today: No - Critical Care Critical Care patient: Yes Total Critical Care Time (in minutes): 35 Critical Care Statement: The care of this patient involved high complexity decision making to prevent further life threatening deterioration of the patient 's condition and/or to evaluate & treat vital organ system(s) failure or risk of failure.
[2019-01-10] MEDS ORDERED: SODIUM CHLORIDE 250 ML IV PRN (20:08)
[2019-01-10] MEDS: ALBUMIN HUMAN 25% 12.5 GM/50 ML VIAL IVPB SCH ×2 (21:51→21:52)
[2019-01-10] MEDS ORDERED: PT OWN MED DRAWER 7, Y5N ONE (21:57)
[2019-01-10] MEDS: MUPIROCIN 2% TOPICAL OINTMENT FOR DECOLONIZATION NS SCH (22:33)
[2019-01-10] MEDS: ROSUVASTATIN CA 5 MG TABLET (FP) PO SCH (22:33)
[2019-01-10] MEDS: CHLORHEXIDINE GLUCONATE 4% CLEANSER FOR DECOLONIZATION TP SCH (22:34)
[2019-01-11] MEDS: ALBUTEROL SO4 0.083% IH SOL 2.5 MG/3 ML VIAL.NEB. NEB PRN ×2 (06:45→21:00)
[2019-01-11 06:57] LABS: INR 1.42 (0.83-1.09); PROTHROMBIN TIME (PATIENT) 16.8 SEC (9.7-13.0)
[2019-01-11 07:15] LABS: ANION GAP 8 MMOL/L (8-16); BLOOD UREA NITROGEN 34 mg/dL (7-18); CALCIUM 8.1 mg/dL (8.5-10.1); CHLORIDE 105 mmol/L (98-107); CO2 29 mmol/L (21-32); CREATININE 3.7 mg/dL (0.55-1.3); GLUCOSE,RANDOM 90 mg/dL (74-106); MAGNESIUM 1.9 mg/dL (1.8-2.4); PHOSPHOROUS 4.4 mg/dL (2.5-4.9); POTASSIUM 3.7 mmol/L (3.5-5.1); SODIUM 142 mmol/L (136-145)
[2019-01-11] MEDS ORDERED: FUROSEMIDE 40 MG/4 ML INJECTABLE VIAL IVPUSH ONE (07:20)
--- NOTE | 2019-01-11 07:20 | PN ---
Progress Note (short form) - Note Progress Note: RENAL Pt seen and examined at bedside He appears comfortable Did not wake up while I examined him Last Vital Signs Temp Pulse Resp BP Pulse Ox 98.9 F 61 23 H 119/48 L 99 01/11/19 06:00 01/11/19 06:00 01/11/19 06:00 01/11/19 06:00 01/11/19 05:00 Lungs bilat air entry, some rhonchi cvs s1s2 rr +cornelius abd firm, has a surgical scar ext no edema neuro poorly responsive CBC, BMP 01/09/19 05:30 01/11/19 05:30 Current Medications Generic Name Dose Route Start Last Admin Trade Name Freq PRN Reason Stop Dose Admin Albuterol Sulfate 1 amp 01/08/19 22:48 01/11/19 06:45 Ventolin 0.083% Nebulizer Soln - NEB 1 amp Q4H PRN Administration SHORT OF BREATH/WHEEZING Artificial Tears 1 drop 01/02/19 14:09 01/04/19 09:55 Artificial Tears OU 1 drop TID PRN Administration DRY EYES Chlorhexidine Gluconate 1 applic 01/10/19 22:00 01/10/19 22:34 Hibiclens For Decolonization - TP 1 applic HS JAYCE Administration Heparin Sodium (Porcine) 1,000 unit 01/03/19 11:54 Heparin - IVPUSH PRN PRN Heparin Heparin Sodium (Porcine) 5,000 unit 01/03/19 11:54 Heparin - IVPUSH PRN PRN Heparin Heparin Sodium/Dextrose 25,000 units in 500 mls @ 20 mls/hr 01/03/19 12:00 22:34 Heparin Infusion - IV 900 units/hr TITR JAYCE 18 mls/hr Titration Protocol 1,000 UNITS/HR Mupirocin 1 applic 01/10/19 22:00 01/10/19 22:33 Bactroban Ointment (For Decolonization) - NS 01/15/19 21:59 1 applic BID JAYCE Administration Rosuvastatin Calcium 5 mg 01/02/19 22:00 01/10/19 22:33 Crestor - PO 5 mg HS JAYCE Administration Impression 1. ANGELA 2. CKD 3. CHF 4. hypotension 5. resp failure requiring bipap 6. a-fib 7. hld 8. bilateral pleural effusions 9. anemia 10. hypokalemia Plan would attept joseix. If no response would dialyze O2, NIPPV Pt had HD yesterday nd is saturating OK MV
[2019-01-11] MEDS: HEPARIN INFUSION - 25,000 UNITS/500 ML INFUS.BAG IV SCH ×2 (08:00→17:46)
[2019-01-11] MEDS: MUPIROCIN 2% TOPICAL OINTMENT FOR DECOLONIZATION NS SCH ×2 (09:26→21:30)
--- NOTE | 2019-01-11 09:39 | PN ---
Physical Exam: SUBJECTIVE: Patient seen and examined. Feels breathing is better. No chest pain. Got permacath placed yesterday and got dialyzed yesterday. OBJECTIVE: Vital Signs Period Temp Pulse Resp BP Sys/Ascencio Pulse Ox Last 24 Hr 97.5 F-99.4 F 45-76 18-34 107-126/37-75 92-100 Vital Signs Temp 98.8 F 01/11/19 10:00 Pulse 58 L 01/11/19 11:00 Resp 20 01/11/19 10:00 BP 145/78 01/11/19 10:00 Pulse Ox 94 L 01/11/19 11:00 Intake & Output 01/10/19 01/11/19 01/11/19 23:59 11:59 23:59 Intake Total 718 244 Output Total 100 Balance 618 244 Weight 88.995 kg Intake: IV 318 144 HEPARIN INFUSION - 25,000 108 144 units In 500 ml @ 1,000 UNITS/HR 20 mls/hr IV TITR JAYCE Rx#:[id number] SL 10 IVPB 400 Oral 0 100 Output: Urine 100 Lester 100 Other: Voiding Method Indwelling Catheter Indwelling Catheter Bowel Movement No Yes: small Body Mass Index (BMI) 25.8 Weight Measurement Method Built in [facility] GENERAL: The patient is awake, alert, and fully oriented, in no acute distress. EYES: PERRL ENT:High flow oxygen NECK: R permacath in place, clean dressing LUNGS: Breath sounds equal, clear to auscultation bilaterally, no wheezes, no crackles, no accessory muscle use. HEART: Regular rate and rhythm, S1, S2 ABDOMEN: Soft, nontender, nondistended, normoactive bowel sounds EXTREMITIES: 2+ pulses, warm, well-perfused, mild b/l pedal edema. NEUROLOGICAL: Cranial nerves II through XII grossly intact. Normal speech, gait not observed. CBC, BMP 01/09/19 05:30 01/11/19 05:30 Laboratory Results - last 24 hr 01/06/19 01/10/19 01/11/19 09:40 13:00 05:30 PT with INR INR PTT (Actin FS) Sodium 137 142 Potassium 3.5 3.7 Chloride 103 105 Carbon Dioxide 26 29 Anion Gap 8 8 BUN 52 H 34 H Creatinine 4.9 H 3.7 H Creat Clearance w eGFR 11.24 15.55 Random Glucose 94 90 Calcium 8.2 L 8.1 L Phosphorus 4.4 Magnesium 1.9 Blood Type O POSITIVE Antibody Screen Negative Crossmatch See Detail 01/11/19 05:30 PT with INR 16.80 H INR 1.42 H PTT (Actin FS) 28.0 Sodium Potassium Chloride Carbon Dioxide Anion Gap BUN Creatinine Creat Clearance w eGFR Random Glucose Calcium Phosphorus Magnesium Blood Type Antibody Screen Crossmatch Active Medications Generic Name Dose Route Start Last Admin Trade Name Freq PRN Reason Stop Dose Admin Albuterol Sulfate 1 amp 01/08/19 22:48 01/11/19 06:45 Ventolin 0.083% Nebulizer Soln - NEB 1 amp Q4H PRN Administration SHORT OF BREATH/WHEEZING Artificial Tears 1 drop 01/02/19 14:09 01/04/19 09:55 Artificial Tears OU 1 drop TID PRN Administration DRY EYES Chlorhexidine Gluconate 1 applic 01/10/19 22:00 01/10/19 22:34 Hibiclens For Decolonization - TP 1 applic HS JAYCE Administration Heparin Sodium (Porcine) 1,000 unit 01/03/19 11:54 Heparin - IVPUSH PRN PRN Heparin Heparin Sodium (Porcine) 5,000 unit 01/03/19 11:54 Heparin - IVPUSH PRN PRN Heparin Heparin Sodium/Dextrose 25,000 units in 500 mls @ 20 mls/hr 01/03/19 12:00 22:34 Heparin Infusion - IV 900 units/hr TITR JAYCE 18 mls/hr Titration Protocol 1,000 UNITS/HR Mupirocin 1 applic 01/10/19 22:00 01/11/19 09:26 Bactroban Ointment (For Decolonization) - NS 01/15/19 21:59 1 applic BID JAYCE Administration Rosuvastatin Calcium 5 mg 01/02/19 22:00 01/10/19 22:33 Crestor - PO 5 mg HS JAYCE Administration ASSESSMENT/PLAN: Patient is an 88 year old male who presented for worsening shortness of breath and was found to have CHF exacerbation with hypotension. Patient admitted to ICU for further monitoring and management. NEURO -Awake, Alert and oriented -On no sedation PULMONARY #Acute Hypoxic Respiratory Failure -s/p permacath placement 01/10/19 for HD - Likely in the setting of fluid overload now requiring dialysis -Likely ATN without recovery of renal function and inadequate diuresis -Requiring High Flow O2 for pressure support and respiratory status, weaning off high flow as tolerated -Did not respond to lasix IV or drip, requiring HD for fluid removal at this time -Renal and bladder US without any signs of obstruction -Strict I&O's -Daily weights -Cardiology consult appreciated permacath today for further UF HD #COPD -No acute exacerbation -Albuterol nebulizer PRN -Maintain 02 Saturation >90% -On high flow oxygen -wean as tolerated CARDIOLOGY #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 -Likely Cardio-Renal Syndrome -Repeat ECHO with normal EF, dilated RV and RA -Off pressors -Low sodium diet -dc Lester -pt not making adequate urine -Daily weights -Hold B-mukesh until more hemodynamically stable- pt has been bradycardic #Permanent atrial fibrillation -[id number] -Patient on Warfarin at home, warfarin bridge started today 01/11/19 (5mg) -Cont Heparin drip -PTT/INR #CAD s/p CABG -s/p PCI/LUIS EDUARDO to LAD -Continue Rosuvastatin, ASA and BB as hemodynamically tolerates -Maintain Hgb > 8 #HTN -Hold anti-htn medications as patient is hypotensive -Currently off Norepinephrine, continue to monitor MAPs #HLD -Continue home Crestor NEPHROLOGY #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 -Likely ATN -Baseline around 1.5 -Kidney/Bladder U/S without signs of obstruction -Avoid nephrotoxic medications -Renally dose medications -Will hold CAROLYN/ARB for now -Nephrology consult appreciated -Monitor BMP -Intermittent dialysis as needed INFECTIOUS DISEASE #UTI - Resolved -Completed course of Rocephin -Urine culture grew Enterococcus -Off AB HEMATOLOGY #Supratherapeutic INR - resolved -Started heparin bridge (01/11/19) #Macrocytic Anemia -With possible superimposed chronic anemia -Renal consult appreciated -Continue to monitor CBC -Iron studies normal F/E/N -None -Monitor lytes, replete as needed -Sodium controlled diet Prophylaxis -SCD's, -On heparin bridge -No GI required LINES -R Permacath placement 01/10/19 Disposition -Full code -Monitor in ICU on High Flow O2- wean as tolerated Visit type - Emergency Visit Emergency Visit: Yes ED Registration Date: 12/30/18 Care time: The patient presented to the Emergency Department on the above date and was hospitalized for further evaluation of their emergent condition. - New Patient This patient is new to me today: No - Critical Care Critical Care patient: Yes Total Critical Care Time (in minutes): 35 Critical Care Statement: The care of this patient involved high complexity decision making to prevent further life threatening deterioration of the patient 's condition and/or to evaluate & treat vital organ system(s) failure or risk of failure.
--- NOTE | 2019-01-11 09:47 | PN ---
Progress Note, Physician Chief Complaint: sp placement of permacath post op day one History of Present Illness: under MAC anesthesia - Current Medication List Current Medications: Active Medications Albuterol Sulfate (Ventolin 0.083% Nebulizer Soln -) 1 amp NEB Q4H PRN PRN Reason: SHORT OF BREATH/WHEEZING Last Admin: 01/11/19 06:45 Dose: 1 amp Artificial Tears (Artificial Tears) 1 drop OU TID PRN PRN Reason: DRY EYES Last Admin: 01/04/19 09:55 Dose: 1 drop Chlorhexidine Gluconate (Hibiclens For Decolonization -) 1 applic TP HS JAYCE Last Admin: 01/10/19 22:34 Dose: 1 applic Heparin Sodium (Porcine) (Heparin -) 1,000 unit IVPUSH PRN PRN PRN Reason: Heparin Heparin Sodium (Porcine) (Heparin -) 5,000 unit IVPUSH PRN PRN PRN Reason: Heparin Heparin Sodium/Dextrose (Heparin Infusion -) 25,000 units in 500 mls @ 20 mls/ hr IV TITR JAYCE; Protocol Last Titration: 01/10/19 22:34 Dose: 900 units/hr, 18 mls/hr Mupirocin (Bactroban Ointment (For Decolonization) -) 1 applic NS BID JAYCE Stop: 01/15/19 21:59 Last Admin: 01/11/19 09:26 Dose: 1 applic Rosuvastatin Calcium (Crestor -) 5 mg PO HS JAYCE Last Admin: 01/10/19 22:33 Dose: 5 mg - Objective Vital Signs: Vital Signs Temperature 98.9 F 01/11/19 06:00 Pulse Rate 61 01/11/19 09:00 Respiratory Rate 22 H 01/11/19 08:00 Blood Pressure 111/54 L 01/11/19 08:00 O2 Sat by Pulse Oximetry (%) 98 01/11/19 09:00 Constitutional: Yes: Well Nourished Cardiovascular: Yes: Other (frequent pvc's, unchanged from preop ekg) Respiratory: Yes: On Nasal O2 (improved respiratory effort than preop) Gastrointestinal: Yes: WNL Labs: CBC, BMP 01/09/19 05:30 01/11/19 05:30 INR, PTT INR 1.42 (0.83-1.09) H 01/11/19 05:30 Assessment/Plan Patient doing well, no adverse effects from anesthetics, will sign off care at this time.
[2019-01-11] MEDS ORDERED: DEXAMETHASONE SOD PHOSPHATE 10 MG/1 ML VIAL IVPB SCH (10:00)
--- NOTE | 2019-01-11 10:06 | PN ---
Physical Exam: SUBJECTIVE: Patient seen and examined OBJECTIVE: Vital Signs Period Temp Pulse Resp BP Sys/Ascencio Pulse Ox Last 24 Hr 97.5 F-99.4 F 45-76 18-34 107-126/37-75 92-100 GENERAL: The patient is awake, alert, and fully oriented, in no acute distress. HEAD: Normal with no signs of trauma. EYES: PERRL, extraocular movements intact, sclera anicteric, conjunctiva clear. No ptosis. ENT: Ears normal, nares patent, oropharynx clear without exudates, moist mucous membranes. NECK: Trachea midline, full range of motion, supple. LUNGS: Breath sounds equal, clear to auscultation bilaterally, no wheezes, no crackles, no accessory muscle use. HEART: Regular rate and rhythm, S1, S2 without murmur, rub or gallop. ABDOMEN: Soft, nontender, nondistended, normoactive bowel sounds, no guarding, no rebound, no hepatosplenomegaly, no masses. EXTREMITIES: 2+ pulses, warm, well-perfused, no edema. NEUROLOGICAL: Cranial nerves II through XII grossly intact. Normal speech, gait not observed. PSYCH: Normal mood, normal affect. SKIN: Warm, dry, normal turgor, no rashes or lesions noted Laboratory Results - last 24 hr 01/06/19 01/10/19 01/11/19 09:40 13:00 05:30 PT with INR INR PTT (Actin FS) Sodium 137 142 Potassium 3.5 3.7 Chloride 103 105 Carbon Dioxide 26 29 Anion Gap 8 8 BUN 52 H 34 H Creatinine 4.9 H 3.7 H Creat Clearance w eGFR 11.24 15.55 Random Glucose 94 90 Calcium 8.2 L 8.1 L Phosphorus 4.4 Magnesium 1.9 Blood Type O POSITIVE Antibody Screen Negative Crossmatch See Detail 01/11/19 05:30 PT with INR 16.80 H INR 1.42 H PTT (Actin FS) 28.0 Sodium Potassium Chloride Carbon Dioxide Anion Gap BUN Creatinine Creat Clearance w eGFR Random Glucose Calcium Phosphorus Magnesium Blood Type Antibody Screen Crossmatch Active Medications Generic Name Dose Route Start Last Admin Trade Name Freq PRN Reason Stop Dose Admin Albuterol Sulfate 1 amp 01/08/19 22:48 01/11/19 06:45 Ventolin 0.083% Nebulizer Soln - NEB 1 amp Q4H PRN Administration SHORT OF BREATH/WHEEZING Artificial Tears 1 drop 01/02/19 14:09 01/04/19 09:55 Artificial Tears OU 1 drop TID PRN Administration DRY EYES Chlorhexidine Gluconate 1 applic 01/10/19 22:00 01/10/19 22:34 Hibiclens For Decolonization - TP 1 applic HS JAYCE Administration Heparin Sodium (Porcine) 1,000 unit 01/03/19 11:54 Heparin - IVPUSH PRN PRN Heparin Heparin Sodium (Porcine) 5,000 unit 01/03/19 11:54 Heparin - IVPUSH PRN PRN Heparin Heparin Sodium/Dextrose 25,000 units in 500 mls @ 20 mls/hr 01/03/19 12:00 22:34 Heparin Infusion - IV 900 units/hr TITR JAYCE 18 mls/hr Titration Protocol 1,000 UNITS/HR Mupirocin 1 applic 01/10/19 22:00 01/11/19 09:26 Bactroban Ointment (For Decolonization) - NS 01/15/19 21:59 1 applic BID JAYCE Administration Rosuvastatin Calcium 5 mg 01/02/19 22:00 01/10/19 22:33 Crestor - PO 5 mg HS JAYCE Administration ASSESSMENT/PLAN: Visit type - Emergency Visit Emergency Visit: Yes ED Registration Date: 12/30/18 Care time: The patient presented to the Emergency Department on the above date and was hospitalized for further evaluation of their emergent condition. - New Patient This patient is new to me today: Yes Date on this admission: 01/11/19 - Critical Care Critical Care patient: Yes Total Critical Care Time (in minutes): 35 Critical Care Statement: The care of this patient involved high complexity decision making to prevent further life threatening deterioration of the patient 's condition and/or to evaluate & treat vital organ system(s) failure or risk of failure. - Discharge Referral Referred to [facility] No
--- NOTE | 2019-01-11 11:13 | PN ---
Teaching Attending Note Name of Resident: Louise Grover ATTENDING PHYSICIAN STATEMENT I saw and evaluated the patient. I reviewed the resident's note and discussed the case with the resident. I agree with the resident's findings and plan as documented. SUBJECTIVE: Patient seen and examined in the ICU. Remains mildly tachypneic at rest on HFOT. Denies CP. Some dry cough. S/P Permacath yesterday. OBJECTIVE: Intake & Output 01/08/19 01/09/19 01/10/19 01/11/19 23:59 23:59 23:59 23:59 Intake Total 867 859 944 244 Output Total 50 90 150 Balance 817 769 794 244 Weight 201 lb 197 lb 3.2 oz 196 lb 6.4 oz 196 lb 3.2 oz Last Vital Signs Temp Pulse Resp BP Pulse Ox 98.8 F 58 L 20 145/78 98 01/11/19 10:00 01/11/19 10:00 01/11/19 10:00 01/11/19 10:00 01/11/19 09:00 Active Medications Albuterol Sulfate (Ventolin 0.083% Nebulizer Soln -) 1 amp NEB Q4H PRN PRN Reason: SHORT OF BREATH/WHEEZING Last Admin: 01/11/19 06:45 Dose: 1 amp Artificial Tears (Artificial Tears) 1 drop OU TID PRN PRN Reason: DRY EYES Last Admin: 01/04/19 09:55 Dose: 1 drop Chlorhexidine Gluconate (Hibiclens For Decolonization -) 1 applic TP HS JAYCE Last Admin: 01/10/19 22:34 Dose: 1 applic Heparin Sodium (Porcine) (Heparin -) 1,000 unit IVPUSH PRN PRN PRN Reason: Heparin Heparin Sodium (Porcine) (Heparin -) 5,000 unit IVPUSH PRN PRN PRN Reason: Heparin Heparin Sodium/Dextrose (Heparin Infusion -) 25,000 units in 500 mls @ 20 mls/ hr IV TITR JAYCE; Protocol Last Titration: 01/10/19 22:34 Dose: 900 units/hr, 18 mls/hr Mupirocin (Bactroban Ointment (For Decolonization) -) 1 applic NS BID JAYCE Stop: 01/15/19 21:59 Last Admin: 01/11/19 09:26 Dose: 1 applic Rosuvastatin Calcium (Crestor -) 5 mg PO [facility] Last Admin: 01/10/19 22:33 Dose: 5 mg Warfarin Sodium (Coumadin -) 5 mg PO DAILY@1800 [facility] Gen: Awake and alert, Mildly tachypneic at rest on HFOT Heart: RRR Lung: Bilateral coarse rhonchi/crackles Abd: soft, nontender Ext: + edema Laboratory Results - last 24 hr 01/06/19 01/10/19 01/11/19 09:40 13:00 05:30 PT with INR INR PTT (Actin FS) Sodium 137 142 Potassium 3.5 3.7 Chloride 103 105 Carbon Dioxide 26 29 Anion Gap 8 8 BUN 52 H 34 H Creatinine 4.9 H 3.7 H Creat Clearance w eGFR 11.24 15.55 Random Glucose 94 90 Calcium 8.2 L 8.1 L Phosphorus 4.4 Magnesium 1.9 Blood Type O POSITIVE Antibody Screen Negative Crossmatch See Detail 01/11/19 05:30 PT with INR 16.80 H INR 1.42 H PTT (Actin FS) 28.0 Sodium Potassium Chloride Carbon Dioxide Anion Gap BUN Creatinine Creat Clearance w eGFR Random Glucose Calcium Phosphorus Magnesium Blood Type Antibody Screen Crossmatch ASSESSMENT AND PLAN: Acute Hypoxic Respiratory Failure Acute on Chronic Diastolic Heart Failure Volume Overload Atrial Fibrillation Acute on Chronic Renal Failure COPD Anemia Hypercholesterolemia - HD per Renal - D/C christina - Daily weights - O2 to keep SpO2 >90% - HFOT / BiPAP to assist in work of breathing - rate control - AC - ICU monitoring for tenuous hemodynamics and respiratory monitoring and he is on HFOT Dr Guevara Critical care time spent in reviewing chart, evaluating patient and formulating plan 35 min
--- NOTE | 2019-01-11 13:48 | PN ---
Physical Exam: SUBJECTIVE: Patient seen and examined, breathing with some improvement. having lunch, assisted by , no other complaints. OBJECTIVE: Vital Signs Period Temp Pulse Resp BP Sys/Ascencio Pulse Ox Last 24 Hr 97.5 F-99.4 F 45-76 18-34 107-145/37-78 92-100 Intake & Output 01/08/19 01/09/19 01/10/19 01/11/19 23:59 23:59 23:59 23:59 Intake Total 867 859 944 244 Output Total 50 90 150 Balance 817 769 794 244 Weight 201 lb 197 lb 3.2 oz 196 lb 6.4 oz 196 lb 3.2 oz GENERAL: The patient is awake, alert, improved tachypnea, having lunch with HEAD: Normal with no signs of trauma. EYES: PERRL, extraocular movements intact, sclera anicteric, conjunctiva clear. No ptosis. NECK: soft, supple, neck vein distension LUNGS: decreased air entry, basilar rales, no wheezing HEART: S1S2 irregularly irregular ABDOMEN: Soft, nontender, nondistended, normoactive bowel sounds, no guarding, no rebound, EXTREMITIES: improved pedal edema PSYCH: Normal mood, normal affect. SKIN: Warm, dry, normal turgor, no rashes or lesions noted Laboratory Results - last 24 hr 01/06/19 01/10/19 01/11/19 09:40 13:00 05:30 PT with INR INR PTT (Actin FS) Sodium 137 142 Potassium 3.5 3.7 Chloride 103 105 Carbon Dioxide 26 29 Anion Gap 8 8 BUN 52 H 34 H Creatinine 4.9 H 3.7 H Creat Clearance w eGFR 11.24 15.55 Random Glucose 94 90 Calcium 8.2 L 8.1 L Phosphorus 4.4 Magnesium 1.9 Blood Type O POSITIVE Antibody Screen Negative Crossmatch See Detail 01/11/19 05:30 PT with INR 16.80 H INR 1.42 H PTT (Actin FS) 28.0 Sodium Potassium Chloride Carbon Dioxide Anion Gap BUN Creatinine Creat Clearance w eGFR Random Glucose Calcium Phosphorus Magnesium Blood Type Antibody Screen Crossmatch Active Medications Generic Name Dose Route Start Last Admin Trade Name Freq PRN Reason Stop Dose Admin Albuterol Sulfate 1 amp 01/08/19 22:48 01/11/19 06:45 Ventolin 0.083% Nebulizer Soln - NEB 1 amp Q4H PRN Administration SHORT OF BREATH/WHEEZING Artificial Tears 1 drop 01/02/19 14:09 01/04/19 09:55 Artificial Tears OU 1 drop TID PRN Administration DRY EYES Chlorhexidine Gluconate 1 applic 01/10/19 22:00 01/10/19 22:34 Hibiclens For Decolonization - TP 1 applic HS JAYCE Administration Heparin Sodium (Porcine) 1,000 unit 01/03/19 11:54 Heparin - IVPUSH PRN PRN Heparin Heparin Sodium (Porcine) 5,000 unit 01/03/19 11:54 Heparin - IVPUSH PRN PRN Heparin Heparin Sodium/Dextrose 25,000 units in 500 mls @ 20 mls/hr 01/03/19 12:00 22:34 Heparin Infusion - IV 900 units/hr TITR JAYCE 18 mls/hr Titration Protocol 1,000 UNITS/HR Mupirocin 1 applic 01/10/19 22:00 01/11/19 09:26 Bactroban Ointment (For Decolonization) - NS 01/15/19 21:59 1 applic BID JAYCE Administration Rosuvastatin Calcium 5 mg 01/02/19 22:00 01/10/19 22:33 Crestor - PO 5 mg HS JAYCE Administration Warfarin Sodium 5 mg 01/11/19 18:00 Coumadin - PO DAILY@1800 [facility] Home Medications Medication Instructions Recorded Ranolazine [Ranexa -] 500 mg PO BID 03/22/12 Cholecalciferol (Vitamin D3) 2,000 unit PO DAILY 03/13/18 [Vitamin D -] Vit A/Vit C/Vit E/Zinc/Copper 1 each PO DAILY 03/13/18 [Preservision Areds Tablet] Metoprolol Succinate [Toprol Xl] 25 mg PO DAILY 03/18/18 Losartan Potassium [Cozaar -] 25 mg PO DAILY tablet 10/06/18 Warfarin Sodium 5 mg PO HS 30 Days #30 tablet 10/06/18 Allopurinol [Zyloprim -] 150 mg PO DAILY 12/30/18 Furosemide [Lasix] 40 mg PO DAILY 12/30/18 Rosuvastatin [Crestor -] 3 mg PO HS 12/30/18 Microbiology 12/31/18 12:00 Urine - Urine Lester Urine Culture - Final Enterococcus Faecalis ASSESSMENT/PLAN: 88 yom CAD s/p CABG (JHAVERI to mLAD, SVG to RPDA), s/p PCI/LUIS EDUARDO to LAD, persistent AF on Coumadin, diastolic dysfunction with h/o failure, HTN, hypercholesterolemia and carotid stenosis, 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 -Acute on chronic diastolic+/- systolic heart failure exacerbation (prior on lasix drip, now on HD) -Acute hypoxic repiratory failure -Cardiogenic shock off pressors (Prior on dobutamine then levophed drip_ -Hypotension suspect cardiogenic -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, suspect cardiorenal from CHF -Perisistent Atrial fibrillation on coumadin -Anemia, suspect multifactorial from renal disease, blood draws, monitor for occult bleed -Coumadin coagulopathy -CAD s/p CABG (JHAVERI to mLAD, SVG to RPDA), s/p PCI/LUIS EDUARDO to LAD -HTN -HLD -Carotid stenosis PLan: Ongoing HD for fluid removal. respiratory status still tenuous. High flow oxygen , Bipap prn. s/p permacath 01/10 metoprolol held given bradycardia and hypotension. Heparin drip. resume coumadin. Crestor. Resume ranexa as able. s/p 1 unit PRBC, monitor. DVTPPX heparin drip Prognosis overall poor. Pallliative care to address overall goals of care. Dispo ICU level of care. Plan discussed with patient and at bedside. Care co-ordinated with ICU. Will address possible LTach dc with continued HD if able to wean off HFOT. Total critical care time spent 34 min. Visit type - Emergency Visit Emergency Visit: Yes ED Registration Date: 12/30/18 Care time: The patient presented to the Emergency Department on the above date and was hospitalized for further evaluation of their emergent condition. - New Patient This patient is new to me today: No - Critical Care Critical Care patient: Yes Total Critical Care Time (in minutes): 34 Critical Care Statement: The care of this patient involved high complexity decision making to prevent further life threatening deterioration of the patient 's condition and/or to evaluate & treat vital organ system(s) failure or risk of failure.
--- NOTE | 2019-01-11 14:44 | PN ---
Progress Note, Physician History of Present Illness: Remains on HFO2, hemodynamics stable off pressors, started HD via PC. Toprol held for bradycardia and hypotension. - Current Medication List Current Medications: Active Medications Albuterol Sulfate (Ventolin 0.083% Nebulizer Soln -) 1 amp NEB Q4H PRN PRN Reason: SHORT OF BREATH/WHEEZING Last Admin: 01/11/19 06:45 Dose: 1 amp Artificial Tears (Artificial Tears) 1 drop OU TID PRN PRN Reason: DRY EYES Last Admin: 01/04/19 09:55 Dose: 1 drop Chlorhexidine Gluconate (Hibiclens For Decolonization -) 1 applic TP HS [facility] Last Admin: 01/10/19 22:34 Dose: 1 applic Heparin Sodium (Porcine) (Heparin -) 1,000 unit IVPUSH PRN PRN PRN Reason: Heparin Heparin Sodium (Porcine) (Heparin -) 5,000 unit IVPUSH PRN PRN PRN Reason: Heparin Heparin Sodium/Dextrose (Heparin Infusion -) 25,000 units in 500 mls @ 20 mls/ hr IV TITR JAYCE; Protocol Last Titration: 01/10/19 22:34 Dose: 900 units/hr, 18 mls/hr Mupirocin (Bactroban Ointment (For Decolonization) -) 1 applic NS BID [facility] Stop: 01/15/19 21:59 Last Admin: 01/11/19 09:26 Dose: 1 applic Rosuvastatin Calcium (Crestor -) 5 mg PO [facility] Last Admin: 01/10/19 22:33 Dose: 5 mg Warfarin Sodium (Coumadin -) 5 mg PO DAILY@1800 JAYCE - Objective Vital Signs: Vital Signs Temperature 98.8 F 01/11/19 10:00 Pulse Rate 58 L 01/11/19 11:00 Respiratory Rate 20 01/11/19 10:00 Blood Pressure 145/78 01/11/19 10:00 O2 Sat by Pulse Oximetry (%) 94 L 01/11/19 11:00 Constitutional: Yes: No Distress, Calm, Thin Neck: Yes: Supple Cardiovascular: Yes: Regular Rate and Rhythm Respiratory: Yes: Regular, Diminished, On Nasal O2 Gastrointestinal: Yes: Normal Bowel Sounds, Soft, Distention Edema: No Labs: CBC, BMP 01/09/19 05:30 01/11/19 05:30 INR, PTT INR 1.42 (0.83-1.09) H 01/11/19 05:30 - ....Imaging EKG: Report Reviewed (Tele: Shandra afib) Problem List - Problems (1) [id number] kidney injury Code(s): N17.9 - ACUTE KIDNEY FAILURE, UNSPECIFIED; N18.9 - CHRONIC KIDNEY DISEASE, UNSPECIFIED Qualifiers: Acute renal failure type: unspecified Chronic kidney disease stage: unspecified stage Qualified Code(s): N17.9 - Acute kidney failure, unspecified ; N18.9 - Chronic kidney disease, unspecified (2) Acute on chronic diastolic (congestive) heart failure Code(s): I50.33 - ACUTE ON CHRONIC DIASTOLIC (CONGESTIVE) HEART FAILURE (3) CAD (coronary artery disease) Code(s): I25.10 - ATHSCL HEART DISEASE OF [place] CORONARY ARTERY W/O ANG PCTRS Qualifiers: Coronary Disease-Associated Artery/Lesion type: [place] artery [place] vs. 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 (CURRENT) USE OF ANTICOAGULANTS (7) HTN (hypertension) Code(s): I10 - ESSENTIAL (PRIMARY) HYPERTENSION Qualifiers: Hypertension type: essential hypertension Qualified Code(s): I10 - Essential (primary) hypertension (8) Hx of CABG Code(s): Z95.1 - PRESENCE OF AORTOCORONARY BYPASS GRAFT (9) SOB (shortness of breath) Code(s): R06.02 - SHORTNESS OF BREATH (10) Status post insertion of drug-eluting stent into left anterior descending ( LAD) artery Code(s): Z95.5 - PRESENCE OF CORONARY ANGIOPLASTY IMPLANT AND GRAFT (11) Anemia Code(s): D64.9 - ANEMIA, UNSPECIFIED Qualifiers: Anemia type: unspecified type Qualified Code(s): D64.9 - Anemia, unspecified (12) Atrial fibrillation Code(s): I48.91 - UNSPECIFIED ATRIAL FIBRILLATION Qualifiers: Atrial fibrillation type: permanent Qualified Code(s): I48.2 - Chronic atrial fibrillation (13) Hyperlipidemia Code(s): E78.5 - HYPERLIPIDEMIA, UNSPECIFIED Qualifiers: Hyperlipidemia type: pure hypercholesterolemia Qualified Code(s): E78.00 - Pure hypercholesterolemia, unspecified; E78.0 - Pure hypercholesterolemia (14) Subendocardial ischemia Code(s): I24.8 - OTHER FORMS OF ACUTE ISCHEMIC HEART DISEASE Assessment/Plan 12/31/2018 Echo: Normal LV size and fxn LVEF 60%, mod dilated RV with mild decreased RV fxn, mild-mod AUTUMN, mild MR, mod TR RVSP 31 mmHg 1. Acute Hypoxic Respiratory Failure 2. Acute on chronic diastolic heart failure 3. CAD post CABG/PCI (stent) evidence of demand ischemia angina pectoris 4. Persistent atrial fibrillation [id number] score of 5 on Coumadin therapy 5. Hypertension 6. Hypercholesterolemia 7. MR mild to moderate in severity 8. TR moderate in severity 9. Carotid stenosis, moderate in severity 10. COPD 11. Acute on chronic kidney disease, initiated HD via PC 12. Anemia PLAN: 1. Ideally resume Toprol XL 25 qd, hemodynamics permitting 2. Ideally should be on ACEI or ARBS, pending renal function stabilization or HD initiation 3. Continue Crestor 5 qhs 4. Continue Heparin gtt->coumadin per INR with caution in view of the above noted anemia 5. HD via PC per renal service, with monitor urine output, creatinine 6. Titrate HFOT to keep SpO2 >90%
[2019-01-11] MEDS ORDERED: HEPARIN NA (PORCINE) 5,000 UNITS/ML 1ML VIAL IVPUSH PRN ×4 (15:06)
[2019-01-11 15:07] LABS: HEMOGLOBIN 9.1 GM/dL (11.7-16.9); MCHC 32.6 g/dl (32.0-35.9); MEAN CELL VOLUME 98.3 fl (80-96); MEAN PLT VOLUME 8.1 fl (7.5-11.1); PLATELET COUNT 78 K/MM3 (134-434); RBC 2.85 M/mm3 (4.00-5.60); RDW 17.1 % (11.9-15.9); WHITE BLOOD COUNT 4.7 K/mm3 (4.0-10.0)
[2019-01-11] MEDS: WARFARIN NA 5 MG TABLET (UD) PO SCH (17:46)
[2019-01-11] MEDS ORDERED: PT OWN MED DRAWER 7, Y5N ONE (20:42)
[2019-01-11] MEDS: ROSUVASTATIN CA 5 MG TABLET (FP) PO SCH (21:30)
[2019-01-11] MEDS: ARTIFICIAL TEARS (POLYVINYL ALCOHOL) OPTH DROPS OU PRN (21:30)
[2019-01-11] MEDS: CHLORHEXIDINE GLUCONATE 4% CLEANSER FOR DECOLONIZATION TP SCH (21:31)
[2019-01-12] MEDS: ALBUTEROL SO4 0.083% IH SOL 2.5 MG/3 ML VIAL.NEB. NEB PRN (02:30)
[2019-01-12 06:58] LABS: BASO % 0.8 % (0-2.0); EOS % 4.8 % (0-4.5); HEMATOCRIT 25.5 % (35.4-49); HEMOGLOBIN 8.4 GM/dL (11.7-16.9); LYMPH % 15.5 % (8-40); MCH 31.5 pg (25.7-33.7); MCHC 32.9 g/dl (32.0-35.9); MEAN PLT VOLUME 8.3 fl (7.5-11.1); NEUT % 67.9 % (42.8-82.8); PLATELET COUNT 77 K/MM3 (134-434); RBC 2.66 M/mm3 (4.00-5.60); RDW 16.3 % (11.9-15.9); WHITE BLOOD COUNT 4.4 K/mm3 (4.0-10.0)
[2019-01-12 07:18] LABS: ALBUMIN 2.6 g/dl (3.4-5.0); ALK PHOS 78 U/L (45-117); ANION GAP 8 MMOL/L (8-16); BILIRUBIN,TOTAL 0.4 mg/dL (0.2-1); BLOOD UREA NITROGEN 45 mg/dL (7-18); CALCIUM 7.8 mg/dL (8.5-10.1); CHLORIDE 103 mmol/L (98-107); CO2 28 mmol/L (21-32); CREATININE 4.6 mg/dL (0.55-1.3); GLUCOSE,RANDOM 94 mg/dL (74-106); INR 1.43 (0.83-1.09); MAGNESIUM 2.2 mg/dL (1.8-2.4); PHOSPHOROUS 4.9 mg/dL (2.5-4.9); POTASSIUM 3.2 mmol/L (3.5-5.1); PROTHROMBIN TIME (PATIENT) 16.9 SEC (9.7-13.0); SGOT/AST 24 U/L (15-37); SGPT/ALT 11 U/L (13-61); SODIUM 139 mmol/L (136-145); TOT PROT 5.8 g/dl (6.4-8.2)
--- NOTE | 2019-01-12 07:39 | PN ---
Progress Note (short form) - Note Progress Note: RENAL Pt seen and examined at bedside He appears comfortable denies complaints does not know if he urinates Last Vital Signs Temp Pulse Resp BP Pulse Ox 98.2 F 69 26 H 99/59 L 96 01/12/19 06:00 01/12/19 06:00 01/12/19 06:00 01/12/19 06:00 01/12/19 06:00 Lungs bilat air entry, some rhonchi cvs s1s2 rr +cornelius abd soft, tympanitic ext has right arm edema neuro awake and alert CBC, BMP 01/12/19 05:30 01/12/19 05:30 Current Medications Generic Name Dose Route Start Last Admin Trade Name Freq PRN Reason Stop Dose Admin Albuterol Sulfate 1 amp 01/11/19 15:06 01/12/19 02:30 Ventolin 0.083% Nebulizer Soln - NEB 1 amp Q4H PRN Administration SHORT OF BREATH/WHEEZING Artificial Tears 1 drop 01/11/19 15:06 01/11/19 21:30 Artificial Tears OU 1 drop TID PRN Administration DRY EYES Chlorhexidine Gluconate 1 applic 01/10/19 22:00 01/11/19 21:31 Hibiclens For Decolonization - TP 1 applic HS JAYCE Administration Heparin Sodium (Porcine) 1,000 unit 01/11/19 15:06 Heparin - IVPUSH PRN PRN Heparin Heparin Sodium (Porcine) 5,000 unit 01/11/19 15:06 Heparin - IVPUSH PRN PRN Heparin Heparin Sodium/Dextrose 25,000 units in 500 mls @ 20 mls/hr 01/11/19 15:06 17:46 Heparin Infusion - IV 1,050 units/hr TITR JAYCE 21 mls/hr Administration Protocol 1,000 UNITS/HR Mupirocin 1 applic 01/10/19 22:00 01/11/19 21:30 Bactroban Ointment (For Decolonization) - NS 01/15/19 21:59 1 applic BID JAYCE Administration Rosuvastatin Calcium 5 mg 01/11/19 22:00 01/11/19 21:30 Crestor - PO 5 mg HS JAYCE Administration Warfarin Sodium 5 mg 01/11/19 18:00 01/11/19 17:46 Coumadin - PO 5 mg DAILY@1800 JAYCE Administration Impression 1. ANGELA 2. CKD 3. CHF 4. hypotension 5. resp failure requiring bipap 6. a-fib 7. hld 8. bilateral pleural effusions 9. anemia ferritin is lowish and tsat is only 15 10. hypokalemia Plan may benefit from iron which can be given during hd re hemodialyze tomorrow probably needs laxative given so much gas in his abd MV
[2019-01-12] MEDS ORDERED: SODIUM CHLORIDE 250 ML IV PRN (07:40)
[2019-01-12] MEDS ORDERED: IRON SUCROSE INJECTION 100 MG in SODIUM CHLORIDE 95 ML IVPB ONE (07:46)
--- NOTE | 2019-01-12 08:32 | PN ---
Progress Note, Physician History of Present Illness: feels more comfortable with his breathing, using the incentive spirometer. decr high flow use - Current Medication List Current Medications: Active Medications Albuterol Sulfate (Ventolin 0.083% Nebulizer Soln -) 1 amp NEB Q4H PRN PRN Reason: SHORT OF BREATH/WHEEZING Last Admin: 01/12/19 02:30 Dose: 1 amp Artificial Tears (Artificial Tears) 1 drop OU TID PRN PRN Reason: DRY EYES Last Admin: 01/11/19 21:30 Dose: 1 drop Chlorhexidine Gluconate (Hibiclens For Decolonization -) 1 applic TP HS JAYCE Last Admin: 01/11/19 21:31 Dose: 1 applic Heparin Sodium (Porcine) (Heparin -) 1,000 unit IVPUSH PRN PRN PRN Reason: Heparin Heparin Sodium (Porcine) (Heparin -) 5,000 unit IVPUSH PRN PRN PRN Reason: Heparin Heparin Sodium/Dextrose (Heparin Infusion -) 25,000 units in 500 mls @ 20 mls/ hr IV TITR JAYCE; Protocol Last Admin: 01/11/19 17:46 Dose: 1,050 units/hr, 21 mls/hr Sodium Chloride (Normal Saline -) 250 mls @ 3,000 mls/hr IV PRN PRN PRN Reason: Hypotension during Dialysis Stop: 01/13/19 07:40 Iron Sucrose 100 mg/ Sodium (Chloride) 100 mls @ 200 mls/hr IVPB ONCE ONE Stop: 01/12/19 08:15 Mupirocin (Bactroban Ointment (For Decolonization) -) 1 applic NS BID JAYCE Stop: 01/15/19 21:59 Last Admin: 01/11/19 21:30 Dose: 1 applic Potassium Chloride (K-Dur -) 40 meq PO DAILY JAYCE Rosuvastatin Calcium (Crestor -) 5 mg PO HS JAYCE Last Admin: 01/11/19 21:30 Dose: 5 mg Warfarin Sodium (Coumadin -) 5 mg PO DAILY@1800 JAYCE Last Admin: 01/11/19 17:46 Dose: 5 mg - Objective Vital Signs: Vital Signs Temperature 98.2 F 01/12/19 06:00 Pulse Rate 69 01/12/19 06:00 Respiratory Rate 26 H 01/12/19 06:00 Blood Pressure 99/59 L 01/12/19 06:00 O2 Sat by Pulse Oximetry (%) 96 01/12/19 06:00 Constitutional: Yes: No Distress, Calm Eyes: Yes: PERRL HENT: Yes: Atraumatic, Normocephalic Neck: Yes: Supple, Trachea Midline Cardiovascular: Yes: Regular Rate and Rhythm Respiratory: Yes: Regular, Other (bibasilar crackles - overall improved, on high flow) Gastrointestinal: Yes: Soft, Distention (likely due incr pressure from high flow ) Edema: Yes (dependent anasarca improv) Edema: LUE: 2+, RUE: 2+, LLE: 2+, RLE: 2+ Peripheral Pulses WNL: Yes Neurological: Yes: Alert Labs: CBC, BMP 01/12/19 05:30 01/12/19 05:30 INR, PTT INR 1.43 (0.83-1.09) H 01/12/19 05:30 Assessment/Plan ASSESSMENT/PLAN: 88 year old man with HTN, CHF, afib, renal insufficiency, presented for worsening shortness of breath and was found to have CHF exacerbation with anasarca likely with ATN as he was not responding to duirectics now requiring hemodialysis to remove volume. PULMONARY #Acute Hypoxic Respiratory Failure likely from pleural effsions, improving, weaning off high flow as tolerated #COPD -Albuterol nebulizer PRN -Maintain 02 Saturation >90% CARDIOLOGY #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 -Likely Cardio-Renal Syndrome -Daily weights -Hold B-mukesh until more hemodynamically stable- pt has been bradycardic - receiving UF with HD to remove fluid #Permanent atrial fibrillation -[id number] -Patient on Warfarin at home, warfarin bridge started 01/11/19 (5mg) -Cont Heparin drip until therapeutic INR -PTT/INR daily #CAD s/p CABG -s/p PCI/LUIS EDUARDO to LAD -Continue Rosuvastatin and BB as hemodynamically tolerates -Maintain Hgb > 8 #HTN -Hold home anti-htn(cozaar and toprol XL) medications as patient is has been bardycardiac/hypotensive #HLD -Continue home Crestor Renal #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, with likely ATN as cause of renal failure, -Avoid nephrotoxic medications -Renally dose medications -Will hold CAROLYN/ARB for now -Intermittent dialysis as needed, will get iron with dialysis tomorrow Hematology #Macrocytic Anemia -With possible superimposed chronic anemia -Continue to monitor CBC while pt is on AC -Iron studies normal, but pt would benefit from iron infusion with HD tomorrow F/E/N -restrict fluid intake -persistent hypokalemia likley due to diuresis, replete daily as needed, started on kdur 40meq daily today -renal diet Prophylaxis -SCD's, on heparin bridge transitioning to warfarin for afib -No GI required LINES -R Permacath placement 01/10/19 Disposition -Full code -Monitor in ICU on High Flow O2- wean as tolerated
[2019-01-12] MEDS ORDERED: PT OWN MED DRAWER 7, Y5N ONE ×2 (09:43→20:10)
[2019-01-12] MEDS: POTASSIUM CHLORIDE TABS 20 MEQ TABLET.ER (FP) PO SCH (10:08)
[2019-01-12] MEDS: MUPIROCIN 2% TOPICAL OINTMENT FOR DECOLONIZATION NS SCH ×2 (10:10→22:35)
[2019-01-12] MEDS: ARTIFICIAL TEARS (POLYVINYL ALCOHOL) OPTH DROPS OU PRN ×2 (10:13→22:35)
--- NOTE | 2019-01-12 10:34 | PN ---
Teaching Attending Note Name of Resident: Lisa Dickey ATTENDING PHYSICIAN STATEMENT I saw and evaluated the patient. I reviewed the resident's note and discussed the case with the resident. I agree with the resident's findings and plan as documented. SUBJECTIVE: Patient seen and examined in the ICU. Remains mildly tachypneic at rest on HFOT. Denies CP. Some dry cough. OBJECTIVE: Intake & Output 01/09/19 01/10/19 01/11/19 01/12/19 23:59 23:59 23:59 23:59 Intake Total 422 001 7478 352 Output Total 90 150 50 0 Balance 466 133 5798 352 Weight 197 lb 3.2 oz 196 lb 6.4 oz 196 lb 3.2 oz 194 lb 9.6 oz Last Vital Signs Temp Pulse Resp BP Pulse Ox 98.2 F 64 26 H 105/51 L 93 L 01/12/19 06:00 01/12/19 09:40 01/12/19 08:00 01/12/19 08:00 01/12/19 09:40 Active Medications Albuterol Sulfate (Ventolin 0.083% Nebulizer Soln -) 1 amp NEB Q4H PRN PRN Reason: SHORT OF BREATH/WHEEZING Last Admin: 01/12/19 02:30 Dose: 1 amp Artificial Tears (Artificial Tears) 1 drop OU TID PRN PRN Reason: DRY EYES Last Admin: 01/12/19 10:13 Dose: 1 drop Chlorhexidine Gluconate (Hibiclens For Decolonization -) 1 applic TP HS JAYCE Last Admin: 01/11/19 21:31 Dose: 1 applic Heparin Sodium (Porcine) (Heparin -) 1,000 unit IVPUSH PRN PRN PRN Reason: Heparin Heparin Sodium (Porcine) (Heparin -) 5,000 unit IVPUSH PRN PRN PRN Reason: Heparin Heparin Sodium/Dextrose (Heparin Infusion -) 25,000 units in 500 mls @ 20 mls/ hr IV TITR JAYCE; Protocol Last Admin: 01/11/19 17:46 Dose: 1,050 units/hr, 21 mls/hr Sodium Chloride (Normal Saline -) 250 mls @ 3,000 mls/hr IV PRN PRN PRN Reason: Hypotension during Dialysis Stop: 01/13/19 07:40 Iron Sucrose 100 mg/ Sodium (Chloride) 100 mls @ 200 mls/hr IVPB ONCE ONE Stop: 01/12/19 08:15 Mupirocin (Bactroban Ointment (For Decolonization) -) 1 applic NS BID [facility] Stop: 01/15/19 21:59 Last Admin: 01/12/19 10:10 Dose: 1 applic Potassium Chloride (K-Dur -) 40 meq PO DAILY [facility] Last Admin: 01/12/19 10:08 Dose: 40 meq Rosuvastatin Calcium (Crestor -) 5 mg PO HS [facility] Last Admin: 01/11/19 21:30 Dose: 5 mg Warfarin Sodium (Coumadin -) 5 mg PO DAILY@1800 [facility] Last Admin: 01/11/19 17:46 Dose: 5 mg Gen: Awake and alert, Mildly tachypneic at rest on HFOT Heart: RRR Lung: Bilateral coarse rhonchi/crackles Abd: soft, nontender Ext: + edema Laboratory Results - last 24 hr 01/11/19 01/11/19 01/12/19 15:03 15:03 05:30 WBC 4.7 4.4 RBC 2.85 L 2.66 L Hgb 9.1 L 8.4 L Hct 28.0 L 25.5 L MCV 98.3 H 96.0 MCH 32.0 31.5 MCHC 32.6 32.9 RDW 17.1 H 16.3 H Plt Count 78 L D 77 L MPV 8.1 8.3 Absolute Neuts (auto) 3.0 Neutrophils % 67.9 Lymphocytes % 15.5 D Monocytes % 11.0 H Eosinophils % 4.8 H D Basophils % 0.8 Nucleated RBC % 0 PT with INR INR PTT (Actin FS) 68.5 H Sodium Potassium Chloride Carbon Dioxide Anion Gap BUN Creatinine Creat Clearance w eGFR Random Glucose Calcium Phosphorus Magnesium Total Bilirubin AST ALT Alkaline Phosphatase Total Protein Albumin 01/12/19 01/12/19 01/12/19 05:30 05:30 05:30 WBC RBC Hgb Hct MCV MCH MCHC RDW Plt Count MPV Absolute Neuts (auto) Neutrophils % Lymphocytes % Monocytes % Eosinophils % Basophils % Nucleated RBC % PT with INR 16.90 H INR 1.43 H PTT (Actin FS) 68.5 H Sodium 139 Potassium 3.2 L Chloride 103 Carbon Dioxide 28 Anion Gap 8 BUN 45 H Creatinine 4.6 H Creat Clearance w eGFR 12.09 Random Glucose 94 Calcium 7.8 L Phosphorus 4.9 Magnesium 2.2 Total Bilirubin 0.4 AST 24 ALT 11 L Alkaline Phosphatase 78 Total Protein 5.8 L Albumin 2.6 L ASSESSMENT AND PLAN: Acute Hypoxic Respiratory Failure Acute on Chronic Diastolic Heart Failure Volume Overload Atrial Fibrillation Acute on Chronic Renal Failure COPD Anemia Hypercholesterolemia - HD per Renal - Daily weights - O2 to keep SpO2 >90% - HFOT / BiPAP to assist in work of breathing - rate control - AC - ICU monitoring for tenuous hemodynamics and respiratory monitoring and he is on HFOT Dr Guevara Critical care time spent in reviewing chart, evaluating patient and formulating plan 35 min
[2019-01-12] MEDS: HEPARIN INFUSION - 25,000 UNITS/500 ML INFUS.BAG IV SCH (14:00)
--- NOTE | 2019-01-12 15:43 | PN ---
Physical Exam: SUBJECTIVE: Patient seen and examined, overall feels the same. family at bedside. OBJECTIVE: Vital Signs Period Temp Pulse Resp BP Sys/Ascencio Pulse Ox Last 24 Hr 97.8 F-98.6 F 44-77 12-31 99-125/47-59 88-99 GENERAL: The patient is awake, alert, improved tachypnea, having lunch with HEAD: Normal with no signs of trauma. EYES: PERRL, extraocular movements intact, sclera anicteric, conjunctiva clear. No ptosis. NECK: soft, supple, neck vein distension LUNGS: decreased air entry, basilar rales, no wheezing HEART: S1S2 irregularly irregular ABDOMEN: Soft, nontender, nondistended, normoactive bowel sounds, no guarding, no rebound, EXTREMITIES: improved pedal edema PSYCH: Normal mood, normal affect. SKIN: Warm, dry, normal turgor, no rashes or lesions noted Laboratory Results - last 24 hr 01/12/19 01/12/19 01/12/19 05:30 05:30 05:30 WBC 4.4 RBC 2.66 L Hgb 8.4 L Hct 25.5 L MCV 96.0 MCH 31.5 MCHC 32.9 RDW 16.3 H Plt Count 77 L MPV 8.3 Absolute Neuts (auto) 3.0 Neutrophils % 67.9 Lymphocytes % 15.5 D Monocytes % 11.0 H Eosinophils % 4.8 H D Basophils % 0.8 Nucleated RBC % 0 PT with INR 16.90 H INR 1.43 H PTT (Actin FS) Sodium 139 Potassium 3.2 L Chloride 103 Carbon Dioxide 28 Anion Gap 8 BUN 45 H Creatinine 4.6 H Creat Clearance w eGFR 12.09 Random Glucose 94 Calcium 7.8 L Phosphorus 4.9 Magnesium 2.2 Total Bilirubin 0.4 AST 24 ALT 11 L Alkaline Phosphatase 78 Total Protein 5.8 L Albumin 2.6 L 01/12/19 05:30 WBC RBC Hgb Hct MCV MCH MCHC RDW Plt Count MPV Absolute Neuts (auto) Neutrophils % Lymphocytes % Monocytes % Eosinophils % Basophils % Nucleated RBC % PT with INR INR PTT (Actin FS) 68.5 H Sodium Potassium Chloride Carbon Dioxide Anion Gap BUN Creatinine Creat Clearance w eGFR Random Glucose Calcium Phosphorus Magnesium Total Bilirubin AST ALT Alkaline Phosphatase Total Protein Albumin Active Medications Generic Name Dose Route Start Last Admin Trade Name Freq PRN Reason Stop Dose Admin Albuterol Sulfate 1 amp 01/11/19 15:06 01/12/19 02:30 Ventolin 0.083% Nebulizer Soln - NEB 1 amp Q4H PRN Administration SHORT OF BREATH/WHEEZING Artificial Tears 1 drop 01/11/19 15:06 01/12/19 10:13 Artificial Tears OU 1 drop TID PRN Administration DRY EYES Chlorhexidine Gluconate 1 applic 01/10/19 22:00 01/11/19 21:31 Hibiclens For Decolonization - TP 1 applic HS JAYCE Administration Heparin Sodium (Porcine) 1,000 unit 01/11/19 15:06 Heparin - IVPUSH PRN PRN Heparin Heparin Sodium (Porcine) 5,000 unit 01/11/19 15:06 Heparin - IVPUSH PRN PRN Heparin Heparin Sodium/Dextrose 25,000 units in 500 mls @ 20 mls/hr 01/11/19 15:06 14:00 Heparin Infusion - IV 1,050 units/hr TITR JAYCE 21 mls/hr Administration Protocol 1,000 UNITS/HR Sodium Chloride 250 mls @ 3,000 mls/hr 01/12/19 07:40 Normal Saline - IV 01/13/19 07:40 PRN PRN Hypotension during Dialysis Iron Sucrose 100 mg/ Sodium 100 mls @ 200 mls/hr 01/12/19 07:46 Chloride IVPB 01/12/19 08:15 ONCE ONE Mupirocin 1 applic 01/10/19 22:00 01/12/19 10:10 Bactroban Ointment (For Decolonization) - NS 01/15/19 21:59 1 applic BID JAYCE Administration Potassium Chloride 40 meq 01/12/19 10:00 01/12/19 10:08 K-Dur - PO 40 meq DAILY JAYCE Administration Rosuvastatin Calcium 5 mg 01/11/19 22:00 01/11/19 21:30 Crestor - PO 5 mg HS JAYCE Administration Warfarin Sodium 5 mg 01/11/19 18:00 01/11/19 17:46 Coumadin - PO 5 mg DAILY@1800 JAYCE Administration ASSESSMENT/PLAN: 88 yom CAD s/p CABG (JHAVERI to mLAD, SVG to RPDA), s/p PCI/LUIS EDUARDO to LAD, persistent AF on Coumadin, diastolic dysfunction with h/o failure, HTN, hypercholesterolemia and carotid stenosis, CKD stage II-III (last cr 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 -Acute on chronic diastolic+/- systolic heart failure exacerbation (prior on lasix drip, now on HD) -Acute hypoxic repiratory failure -Cardiogenic shock off pressors (Prior on dobutamine then levophed drip_ -Hypotension suspect cardiogenic -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, suspect cardiorenal from CHF -Perisistent Atrial fibrillation on coumadin -Anemia, suspect multifactorial from renal disease, blood draws, monitor for occult bleed -Coumadin coagulopathy -CAD s/p CABG (JHAVERI to mLAD, SVG to RPDA), s/p PCI/LUIS EDUARDO to LAD -HTN -HLD -Carotid stenosis PLan: Ongoing HD for fluid removal. respiratory status still tenuous. High flow oxygen , Bipap prn. For HD tomorrow. s/p permacath 01/10 metoprolol held given bradycardia and hypotension. Heparin drip. coumadin with daily INR. Crestor. Resume ranexa as able. s/p 1 unit PRBC, monitor. DVTPPX heparin drip Prognosis overall poor. Pallliative care to address overall goals of care. Dispo ICU level of care. Plan discussed with patient and at bedside. Care co-ordinated with ICU. Will address possible LTach dc with continued HD if able to wean off HFOT. Plan discussed with at bedside in detail, all question answered. Total critical care time spent 31 min Visit type - Emergency Visit Emergency Visit: Yes ED Registration Date: 12/30/18 Care time: The patient presented to the Emergency Department on the above date and was hospitalized for further evaluation of their emergent condition. - New Patient This patient is new to me today: No - Critical Care Critical Care patient: Yes Total Critical Care Time (in minutes): 31 Critical Care Statement: The care of this patient involved high complexity decision making to prevent further life threatening deterioration of the patient 's condition and/or to evaluate & treat vital organ system(s) failure or risk of failure.
--- NOTE | 2019-01-12 17:55 | OP ---
DATE OF OPERATION: 01/10/2019 PREOPERATIVE DIAGNOSIS: End-stage renal disease. POSTOPERATIVE DIAGNOSIS: End-stage renal disease. PROCEDURE: Insertion of PermCath. SURGEON: Deangelo Calloway DO ANESTHESIA: Fractional. BLOOD LOSS: 20 mL. The patient is an 88-year-old male that is from the ICU that has acute renal failure and now needs a permanent catheter placement. The patient's family was consented for the procedure, understanding all risks, benefits, and alternatives and then taken to the operating room. Once in the operating room, he was laid on the operating table in supine manner. The right neck and chest were prepped and draped in sterile surgical manner. Under ultrasound guidance, we visualized the right internal jugular vein and 10 mL of lidocaine 1% was injected there. We then took a micropuncture needle and punctured the right internal jugular vein under ultrasound guidance. Micropuncture awl was inserted. The micropuncture sheath was inserted. Blunt-tipped floppy guidewire was then inserted under fluoroscopy. We then injected lidocaine 10 mL above and below the clavicle. We then took an 11 blade and made a 1-cm incision at the puncture site. We then took a 15 blade and made a 1-cm incision over the clavicle. We then tunneled the PermCath up to puncture site. We then placed a break-away sheath over the guidewire into the vein under fluoroscopy and the cannula and guidewire were then removed. The catheter was placed inside the sheath, the sheath was broken away, and the catheter was placed inside the vein. The neck of the catheter was nice and smooth. The tip of the catheter was located outside the right atrium. We then michelle back on each port of the catheter and there was good flow and heparinized saline was injected and 2000 units of IV heparin was injected into each port. We then took 4-0 Monocryl and 2 simple stitches were placed at the puncture site and 3-0 nylon was used and the catheter was attached to the skin. BioPatch, Steri-Strips, 4x4s, Tegaderm were placed. The patient was transferred back to the ICU, where chest x-ray will be obtained. No complications. DEANGELO CALLOWAY DO STOCK [employer]ER/[id number]
[2019-01-12] MEDS: WARFARIN NA 5 MG TABLET (UD) PO SCH (18:47)
[2019-01-12] MEDS: CHLORHEXIDINE GLUCONATE 4% CLEANSER FOR DECOLONIZATION TP SCH (22:35)
[2019-01-12] MEDS: ROSUVASTATIN CA 5 MG TABLET (FP) PO SCH (22:35)
[2019-01-13] MEDS: ALBUTEROL SO4 0.083% IH SOL 2.5 MG/3 ML VIAL.NEB. NEB PRN (04:05)
[2019-01-13 06:29] LABS: HEMATOCRIT 25.4 % (35.4-49); HEMOGLOBIN 8.6 GM/dL (11.7-16.9); MCH 32.9 pg (25.7-33.7); MEAN CELL VOLUME 96.9 fl (80-96); MEAN PLT VOLUME 8.7 fl (7.5-11.1); PLATELET COUNT 82 K/MM3 (134-434); RBC 2.62 M/mm3 (4.00-5.60); WHITE BLOOD COUNT 4.6 K/mm3 (4.0-10.0)
[2019-01-13 06:44] LABS: INR 1.62 (0.83-1.09); PROTHROMBIN TIME (PATIENT) 19.2 SEC (9.7-13.0)
[2019-01-13 07:28] LABS: ALBUMIN 2.7 g/dl (3.4-5.0); ALK PHOS 75 U/L (45-117); ANION GAP 11 MMOL/L (8-16); BILIRUBIN,TOTAL 0.4 mg/dL (0.2-1); BLOOD UREA NITROGEN 52 mg/dL (7-18); CHLORIDE 102 mmol/L (98-107); CO2 25 mmol/L (21-32); CREATININE 5.1 mg/dL (0.55-1.3); GLUCOSE,RANDOM 95 mg/dL (74-106); POTASSIUM 3.4 mmol/L (3.5-5.1); SGOT/AST 29 U/L (15-37); SGPT/ALT 11 U/L (13-61); SODIUM 138 mmol/L (136-145)
--- NOTE | 2019-01-13 08:56 | PN ---
Physical Exam: SUBJECTIVE: Patient seen and examined this AM. He states he is having some labored breathing but that it is slightly better than overnight. OBJECTIVE: Vital Signs Period Temp Pulse Resp BP Sys/Ascencio Pulse Ox Last 24 Hr 97.6 F-98.5 F 51-73 22-34 98-118/48-63 88-95 GEN: A&O, no acute distress HEENT: PERRL, moist mucus membranes NECK: Supple, no lymphadenopathy HEART: RRR, no murmurs noted LUNGS: diffuse rhonchi/crackles/wheezes somewhat improved, decreased breath sounds diffusely ABDOMEN: Soft, nontender, normoactive bowel sounds EXTREMITIES: no edema seen in b/l LE, no calf tenderness noted Laboratory Results - last 24 hr 01/12/19 01/13/19 01/13/19 23:40 05:30 05:30 WBC 4.6 RBC 2.62 L Hgb 8.6 L Hct 25.4 L MCV 96.9 H MCH 32.9 MCHC 34.0 RDW 16.0 H Plt Count 82 L MPV 8.7 PT with INR 19.20 H INR 1.62 H PTT (Actin FS) Sodium Potassium Chloride Carbon Dioxide Anion Gap BUN Creatinine Creat Clearance w eGFR Random Glucose Calcium Total Bilirubin AST ALT Alkaline Phosphatase Total Protein Albumin Stool Occult Blood Negative 01/13/19 01/13/19 05:30 05:30 WBC RBC Hgb Hct MCV MCH MCHC RDW Plt Count MPV PT with INR INR PTT (Actin FS) 72.0 H Sodium 138 Potassium 3.4 L Chloride 102 Carbon Dioxide 25 Anion Gap 11 BUN 52 H Creatinine 5.1 H Creat Clearance w eGFR 10.73 Random Glucose 95 Calcium 8.0 L Total Bilirubin 0.4 AST 29 ALT 11 L Alkaline Phosphatase 75 Total Protein 6.0 L Albumin 2.7 L Stool Occult Blood Active Medications Generic Name Dose Route Start Last Admin Trade Name Freq PRN Reason Stop Dose Admin Albuterol Sulfate 1 amp 01/11/19 15:06 01/13/19 04:05 Ventolin 0.083% Nebulizer Soln - NEB 1 amp Q4H PRN Administration SHORT OF BREATH/WHEEZING Artificial Tears 1 drop 01/11/19 15:06 01/12/19 22:35 Artificial Tears OU 1 drop TID PRN Administration DRY EYES Chlorhexidine Gluconate 1 applic 01/10/19 22:00 01/12/19 22:35 Hibiclens For Decolonization - TP 1 applic HS JAYCE Administration Heparin Sodium (Porcine) 1,000 unit 01/11/19 15:06 Heparin - IVPUSH PRN PRN Heparin Heparin Sodium (Porcine) 5,000 unit 01/11/19 15:06 Heparin - IVPUSH PRN PRN Heparin Heparin Sodium/Dextrose 25,000 units in 500 mls @ 20 mls/hr 01/11/19 15:06 14:00 Heparin Infusion - IV 1,050 units/hr TITR JAYCE 21 mls/hr Administration Protocol 1,000 UNITS/HR Sodium Chloride 250 mls @ 3,000 mls/hr 01/12/19 07:40 Normal Saline - IV 01/13/19 07:40 PRN PRN Hypotension during Dialysis Iron Sucrose 100 mg/ Sodium 100 mls @ 200 mls/hr 01/12/19 07:46 Chloride IVPB 01/12/19 08:15 ONCE ONE Mupirocin 1 applic 01/10/19 22:00 01/12/19 22:35 Bactroban Ointment (For Decolonization) - NS 01/15/19 21:59 1 applic BID JAYCE Administration Potassium Chloride 40 meq 01/12/19 10:00 01/12/19 10:08 K-Dur - PO 40 meq DAILY JAYCE Administration Rosuvastatin Calcium 5 mg 01/11/19 22:00 01/12/19 22:35 Crestor - PO 5 mg HS JAYCE Administration Warfarin Sodium 5 mg 01/11/19 18:00 01/12/19 18:47 Coumadin - PO 5 mg DAILY@1800 JAYCE Administration ASSESSMENT/PLAN: Patient is an 88 year old male who presented for worsening shortness of breath and was found to have CHF exacerbation with hypotension. Patient admitted to ICU for further monitoring and management. NEURO -Awake, Alert and oriented -On no sedation PULMONARY #Acute Hypoxic Respiratory Failure -Likely ATN without recovery of renal function and inadequate diuresis -Requiring High Flow O2 for pressure support and respiratory status, attempt to wean as able -Did not respond to lasix IV or drip, requiring HD for fluid removal at this time -Renal and bladder US without any signs of obstruction -Strict I&O's -Daily weights -Cardiology consult appreciated -Still with effusion on CXR SOB and tachypnea on HF, will place chest tube today #COPD -No acute exacerbation -Albuterol nebulizer PRN -Maintain 02 Saturation >90% CARDIOLOGY #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 -Likely Cardio-Renal Syndrome -Repeat ECHO with normal EF, dilated RV and RA -Off pressors -Low sodium diet -Lester placed for strict I&O's -Daily weights -Hold B-mukesh until more hemodynamically stable #Permanent atrial fibrillation -[id number] -Warfarin, monitor INR #CAD s/p CABG -s/p PCI/LUIS EDUARDO to LAD -Continue Rosuvastatin, ASA and BB as hemodynamically tolerates -Maintain Hgb > 8 #HTN -Hold anti-htn medications as patient is hypotensive -No longer requiring pressors #HLD -Continue home Crestor NEPHROLOGY #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 -Likely ATN -Baseline around 1.5 -Kidney/Bladder U/S without signs of obstruction -Avoid nephrotoxic medications -Renally dose medications -Will hold CAROLYN/ARB for now -Nephrology consult appreciated -Monitor BMP -Requiring dialysis for volume removal, though urine output and color slightly improved -Permacath placed 01/10 INFECTIOUS DISEASE #UTI - Resolved -Completed course of Rocephin -Urine culture grew Enterococcus HEMATOLOGY #Supratherapeutic INR - resolved -Restart warfarin, monitor INR daily #Macrocytic Anemia -With possible superimposed chronic anemia -Renal consult appreciated -Continue to monitor CBC -Iron studies normal F/E/N -None -HyperPhos. Continue to monitor -Sodium controlled diet Prophylaxis -Heparin drip, warfarin restarted, awaiting therapeutic INR -No GI required LINES -Permacath placed 01/10 Disposition -Full code -Monitor in ICU on High Flow O2 Visit type - Emergency Visit Emergency Visit: Yes ED Registration Date: 12/30/18 Care time: The patient presented to the Emergency Department on the above date and was hospitalized for further evaluation of their emergent condition. - New Patient This patient is new to me today: No - Critical Care Critical Care patient: Yes Total Critical Care Time (in minutes): 50 Critical Care Statement: The care of this patient involved high complexity decision making to prevent further life threatening deterioration of the patient 's condition and/or to evaluate & treat vital organ system(s) failure or risk of failure.
[2019-01-13 09:01] LABS: MAGNESIUM 2.1 mg/dL (1.8-2.4); PHOSPHOROUS 5.2 mg/dL (2.5-4.9)
[2019-01-13] MEDS: POTASSIUM CHLORIDE TABS 20 MEQ TABLET.ER (FP) PO SCH (09:50)
[2019-01-13] MEDS: MUPIROCIN 2% TOPICAL OINTMENT FOR DECOLONIZATION NS SCH ×2 (09:51→22:44)
--- NOTE | 2019-01-13 09:53 | PN ---
Progress Note (short form) - Note Progress Note: Hospitalist to document today. Feels that his SOB continues. On dialysis today. Goals of Care were again discussed with the patient today. He wants to continue with full supportive care in spite of ongoing medical setbacks.
--- NOTE | 2019-01-13 11:51 | PN ---
Progress Note, Physician History of Present Illness: Remains on HFO2, hemodynamics stable, started HD via PC. Toprol held for bradycardia and hypotension. - Current Medication List Current Medications: Active Medications Albuterol Sulfate (Ventolin 0.083% Nebulizer Soln -) 1 amp NEB Q4H PRN PRN Reason: SHORT OF BREATH/WHEEZING Last Admin: 01/13/19 04:05 Dose: 1 amp Artificial Tears (Artificial Tears) 1 drop OU TID PRN PRN Reason: DRY EYES Last Admin: 01/12/19 22:35 Dose: 1 drop Chlorhexidine Gluconate (Hibiclens For Decolonization -) 1 applic TP HS JAYCE Last Admin: 01/12/19 22:35 Dose: 1 applic Heparin Sodium (Porcine) (Heparin -) 1,000 unit IVPUSH PRN PRN PRN Reason: Heparin Heparin Sodium (Porcine) (Heparin -) 5,000 unit IVPUSH PRN PRN PRN Reason: Heparin Heparin Sodium/Dextrose (Heparin Infusion -) 25,000 units in 500 mls @ 20 mls/ hr IV TITR JAYCE; Protocol Last Admin: 01/12/19 14:00 Dose: 1,050 units/hr, 21 mls/hr Sodium Chloride (Normal Saline -) 250 mls @ 3,000 mls/hr IV PRN PRN PRN Reason: Hypotension during Dialysis Stop: 01/13/19 07:40 Iron Sucrose 100 mg/ Sodium (Chloride) 100 mls @ 200 mls/hr IVPB ONCE ONE Stop: 01/12/19 08:15 Mupirocin (Bactroban Ointment (For Decolonization) -) 1 applic NS BID JAYCE Stop: 01/15/19 21:59 Last Admin: 01/13/19 09:51 Dose: 1 applic Potassium Chloride (K-Dur -) 40 meq PO DAILY JAYCE Last Admin: 01/13/19 09:50 Dose: 40 meq Rosuvastatin Calcium (Crestor -) 5 mg PO HS JAYCE Last Admin: 01/12/19 22:35 Dose: 5 mg Warfarin Sodium (Coumadin -) 5 mg PO DAILY@1800 JAYCE Last Admin: 01/12/19 18:47 Dose: 5 mg - Objective Vital Signs: Vital Signs Temperature 97.3 F L 01/13/19 10:00 Pulse Rate 65 01/13/19 11:33 Respiratory Rate 27 H 01/13/19 11:33 Blood Pressure 106/57 L 01/13/19 11:33 O2 Sat by Pulse Oximetry (%) 90 L 01/13/19 09:30 Constitutional: Yes: No Distress, Calm, Thin Neck: Yes: Supple Cardiovascular: Yes: Regular Rate and Rhythm, Murmur (2/6 SM) Respiratory: Yes: Regular, Diminished, On Nasal O2 Gastrointestinal: Yes: Soft, Hypoactive Bowel Sounds Edema: No Labs: CBC, BMP 01/13/19 05:30 01/13/19 05:30 INR, PTT INR 1.62 (0.83-1.09) H 01/13/19 05:30 - ....Imaging Chest X-ray: Report Reviewed (Congestion and pleural effusions) EKG: Report Reviewed (Tele: NSR shayne FRANCO) Problem List - Problems (1) Mdikf-wo-yenpthe kidney injury Code(s): N17.9 - ACUTE KIDNEY FAILURE, UNSPECIFIED; N18.9 - CHRONIC KIDNEY DISEASE, UNSPECIFIED Qualifiers: Acute renal failure type: unspecified Chronic kidney disease stage: unspecified stage Qualified Code(s): N17.9 - Acute kidney failure, unspecified ; N18.9 - Chronic kidney disease, unspecified (2) Acute on chronic diastolic (congestive) heart failure Code(s): I50.33 - ACUTE ON CHRONIC DIASTOLIC (CONGESTIVE) HEART FAILURE (3) CAD (coronary artery disease) Code(s): I25.10 - ATHSCL HEART DISEASE OF [place] CORONARY ARTERY W/O ANG PCTRS Qualifiers: Coronary Disease-Associated Artery/Lesion type: [place] artery [place] vs. transplanted heart: [place] heart Associated angina: without angina Qualified Code(s): I25.10 - Atherosclerotic heart disease of [place] coronary artery without angina pectoris (4) COPD (chronic obstructive pulmonary disease) Code(s): J44.9 - CHRONIC OBSTRUCTIVE PULMONARY DISEASE, UNSPECIFIED Qualifiers: COPD type: unspecified COPD Qualified Code(s): J44.9 - Chronic obstructive pulmonary disease, unspecified (5) Chronic anemia Code(s): D64.9 - ANEMIA, UNSPECIFIED (6) Chronic anticoagulation Code(s): Z79.01 - INTERMEDIATE (CURRENT) USE OF ANTICOAGULANTS (7) HTN (hypertension) Code(s): I10 - ESSENTIAL (PRIMARY) HYPERTENSION Qualifiers: Hypertension type: essential hypertension Qualified Code(s): I10 - Essential (primary) hypertension (8) Hx of CABG Code(s): Z95.1 - PRESENCE OF AORTOCORONARY BYPASS GRAFT (9) SOB (shortness of breath) Code(s): R06.02 - SHORTNESS OF BREATH (10) Status post insertion of drug-eluting stent into left anterior descending ( LAD) artery Code(s): Z95.5 - PRESENCE OF CORONARY ANGIOPLASTY IMPLANT AND GRAFT (11) Anemia Code(s): D64.9 - ANEMIA, UNSPECIFIED Qualifiers: Anemia type: unspecified type Qualified Code(s): D64.9 - Anemia, unspecified (12) Atrial fibrillation Code(s): I48.91 - UNSPECIFIED ATRIAL FIBRILLATION Qualifiers: Atrial fibrillation type: permanent Qualified Code(s): I48.2 - Chronic atrial fibrillation (13) Hyperlipidemia Code(s): E78.5 - HYPERLIPIDEMIA, UNSPECIFIED Qualifiers: Hyperlipidemia type: pure hypercholesterolemia Qualified Code(s): E78.00 - Pure hypercholesterolemia, unspecified; E78.0 - Pure hypercholesterolemia (14) Subendocardial ischemia Code(s): I24.8 - OTHER FORMS OF ACUTE ISCHEMIC HEART DISEASE Assessment/Plan 12/31/2018 Echo: Normal LV size and fxn LVEF 60%, mod dilated RV with mild decreased RV fxn, mild-mod AUTUMN, mild MR, mod TR RVSP 31 mmHg 1. Acute Hypoxic Respiratory Failure 2. Acute on chronic diastolic heart failure 3. CAD post CABG/PCI (stent) evidence of demand ischemia angina pectoris 4. Persistent atrial fibrillation [id number] score of 5 on Coumadin therapy with subtherapeutic INR 5. Hypertension 6. Hypercholesterolemia 7. MR mild to moderate in severity 8. TR moderate in severity 9. Carotid stenosis, moderate in severity 10. COPD 11. Acute on chronic kidney disease, initiated HD via PC 12. Anemia PLAN: 1. Ideally resume Toprol XL 25 qd, hemodynamics permitting 2. Ideally should be on ACEI or ARBS, pending renal function stabilization or HD initiation, replete K 3. Continue Crestor 5 qhs 4. Continue Heparin gtt->coumadin per INR with caution in view of the above noted anemia 5. HD via PC per renal service, with monitor urine output, creatinine 6. Titrate HFOT to keep SpO2 >90%
--- NOTE | 2019-01-13 12:34 | PN ---
Progress Note, Physician History of Present Illness: Pt seen and examined at bedside. He is awake and alert. He tolerated HD today. He still has shortness of breath. - Current Medication List Current Medications: Active Medications Albuterol Sulfate (Ventolin 0.083% Nebulizer Soln -) 1 amp NEB Q4H PRN PRN Reason: SHORT OF BREATH/WHEEZING Last Admin: 01/13/19 04:05 Dose: 1 amp Artificial Tears (Artificial Tears) 1 drop OU TID PRN PRN Reason: DRY EYES Last Admin: 01/12/19 22:35 Dose: 1 drop Chlorhexidine Gluconate (Hibiclens For Decolonization -) 1 applic TP HS JAYCE Last Admin: 01/12/19 22:35 Dose: 1 applic Heparin Sodium (Porcine) (Heparin -) 1,000 unit IVPUSH PRN PRN PRN Reason: Heparin Heparin Sodium (Porcine) (Heparin -) 5,000 unit IVPUSH PRN PRN PRN Reason: Heparin Heparin Sodium/Dextrose (Heparin Infusion -) 25,000 units in 500 mls @ 20 mls/ hr IV TITR JAYCE; Protocol Last Titration: 01/13/19 11:30 Dose: 0 units/hr, 0 mls/hr Sodium Chloride (Normal Saline -) 250 mls @ 3,000 mls/hr IV PRN PRN PRN Reason: Hypotension during Dialysis Stop: 01/13/19 07:40 Iron Sucrose 100 mg/ Sodium (Chloride) 100 mls @ 200 mls/hr IVPB ONCE ONE Stop: 01/12/19 08:15 Mupirocin (Bactroban Ointment (For Decolonization) -) 1 applic NS BID JAYCE Stop: 01/15/19 21:59 Last Admin: 01/13/19 09:51 Dose: 1 applic Potassium Chloride (K-Dur -) 40 meq PO DAILY JAYCE Last Admin: 01/13/19 09:50 Dose: 40 meq Rosuvastatin Calcium (Crestor -) 5 mg PO HS JAYCE Last Admin: 01/12/19 22:35 Dose: 5 mg Warfarin Sodium (Coumadin -) 5 mg PO DAILY@1800 JAYCE Last Admin: 01/12/19 18:47 Dose: 5 mg - Objective Vital Signs: Vital Signs Temperature 97.3 F L 01/13/19 10:00 Pulse Rate 65 01/13/19 11:33 Respiratory Rate 27 H 01/13/19 11:33 Blood Pressure 106/57 L 01/13/19 11:33 O2 Sat by Pulse Oximetry (%) 90 L 01/13/19 09:30 Constitutional: Yes: Calm Eyes: Yes: Conjunctiva Clear Cardiovascular: Yes: S1, S2 Respiratory: Yes: On Nasal O2, Rhonchi Gastrointestinal: Yes: Soft Genitourinary: Yes: Incontinence Musculoskeletal: Yes: Muscle Weakness Edema: Yes Edema: LLE: 1+, RLE: 1+ Neurological: Yes: Oriented Psychiatric: Yes: Oriented Labs: CBC, BMP 01/13/19 05:30 01/13/19 05:30 INR, PTT INR 1.62 (0.83-1.09) H 01/13/19 05:30 - ....Imaging Chest X-ray: Report Reviewed Problem List - Problems (1) Nmafu-jv-fiamboy kidney injury Code(s): N17.9 - ACUTE KIDNEY FAILURE, UNSPECIFIED; N18.9 - CHRONIC KIDNEY DISEASE, UNSPECIFIED Qualifiers: Acute renal failure type: unspecified Chronic kidney disease stage: unspecified stage Qualified Code(s): N17.9 - Acute kidney failure, unspecified ; N18.9 - Chronic kidney disease, unspecified (2) Congestive heart failure Code(s): I50.9 - HEART FAILURE, UNSPECIFIED Qualifiers: Heart failure type: unspecified Heart failure chronicity: acute on chronic Qualified Code(s): I50.9 - Heart failure, unspecified Assessment/Plan Current Medications Generic Name Dose Route Start Last Admin Trade Name Freq PRN Reason Stop Dose Admin Albuterol Sulfate 1 amp 01/11/19 15:06 01/13/19 04:05 Ventolin 0.083% Nebulizer Soln - NEB 1 amp Q4H PRN Administration SHORT OF BREATH/WHEEZING Artificial Tears 1 drop 01/11/19 15:06 01/12/19 22:35 Artificial Tears OU 1 drop TID PRN Administration DRY EYES Chlorhexidine Gluconate 1 applic 01/10/19 22:00 01/12/19 22:35 Hibiclens For Decolonization - TP 1 applic HS JAYCE Administration Heparin Sodium (Porcine) 1,000 unit 01/11/19 15:06 Heparin - IVPUSH PRN PRN Heparin Heparin Sodium (Porcine) 5,000 unit 01/11/19 15:06 Heparin - IVPUSH PRN PRN Heparin Heparin Sodium/Dextrose 25,000 units in 500 mls @ 20 mls/hr 01/11/19 15:06 11:30 Heparin Infusion - IV 0 units/hr TITR JAYCE 0 mls/hr Titration Protocol 1,000 UNITS/HR Sodium Chloride 250 mls @ 3,000 mls/hr 01/12/19 07:40 Normal Saline - IV 01/13/19 07:40 PRN PRN Hypotension during Dialysis Iron Sucrose 100 mg/ Sodium 100 mls @ 200 mls/hr 01/12/19 07:46 Chloride IVPB 01/12/19 08:15 ONCE ONE Mupirocin 1 applic 01/10/19 22:00 01/13/19 09:51 Bactroban Ointment (For Decolonization) - NS 01/15/19 21:59 1 applic BID JAYCE Administration Potassium Chloride 40 meq 01/12/19 10:00 01/13/19 09:50 K-Dur - PO 40 meq DAILY JAYCE Administration Rosuvastatin Calcium 5 mg 01/11/19 22:00 01/12/19 22:35 Crestor - PO 5 mg HS JAYCE Administration Warfarin Sodium 5 mg 01/11/19 18:00 01/12/19 18:47 Coumadin - PO 5 mg DAILY@1800 JAYCE Administration Impression 1. ANGELA 2. CKD 3. CHF 4. hypotension 5. resp failure requiring bipap 6. a-fib 7. hld 8. bilateral pleural effusions 9. anemia 10. hypokalemia Plan - HD today - will evaluate for HD again tomorrow - get another am cxr tomorrow - cont oxygen - discussed plan with ICU - pt likely has ATN - monitor pulse ox - avoid nsaids - prognosis guarded
--- NOTE | 2019-01-13 13:34 | PN ---
Teaching Attending Note Name of Resident: Venancio Combs ATTENDING PHYSICIAN STATEMENT I saw and evaluated the patient. I reviewed the resident's note and discussed the case with the resident. I agree with the resident's findings and plan as documented. SUBJECTIVE: Pt seen and examined in the ICU. Remains on HFOT. States breathing about the same. CXR still with significant congestive changes. OBJECTIVE: Vital Signs Period Temp Pulse Resp BP Sys/Ascencio Pulse Ox Last 24 Hr 97.3 F-98.5 F 51-73 22-34 98-118/50-63 88-95 Intake & Output 01/10/19 01/11/19 01/12/19 01/13/19 23:59 23:59 23:59 23:59 Intake Total 944 1166 1124 372 Output Total 150 50 0 Balance 794 1116 1124 372 Weight 89.086 kg 88.995 kg 88.269 kg Gen: mildly tachypneic with speaking Heart: RRR Lung: scattered rhonchi Abd: soft, nontender Ext: no edema CBC, BMP 01/13/19 05:30 01/13/19 05:30 Active Medications Albuterol Sulfate (Ventolin 0.083% Nebulizer Soln -) 1 amp NEB Q4H PRN PRN Reason: SHORT OF BREATH/WHEEZING Last Admin: 01/13/19 04:05 Dose: 1 amp Artificial Tears (Artificial Tears) 1 drop OU TID PRN PRN Reason: DRY EYES Last Admin: 01/12/19 22:35 Dose: 1 drop Chlorhexidine Gluconate (Hibiclens For Decolonization -) 1 applic TP HS JAYCE Last Admin: 01/12/19 22:35 Dose: 1 applic Heparin Sodium (Porcine) (Heparin -) 1,000 unit IVPUSH PRN PRN PRN Reason: Heparin Heparin Sodium (Porcine) (Heparin -) 5,000 unit IVPUSH PRN PRN PRN Reason: Heparin Heparin Sodium/Dextrose (Heparin Infusion -) 25,000 units in 500 mls @ 20 mls/ hr IV TITR JAYCE; Protocol Last Titration: 01/13/19 11:30 Dose: 0 units/hr, 0 mls/hr Sodium Chloride (Normal Saline -) 250 mls @ 3,000 mls/hr IV PRN PRN PRN Reason: Hypotension during Dialysis Stop: 01/13/19 07:40 Iron Sucrose 100 mg/ Sodium (Chloride) 100 mls @ 200 mls/hr IVPB ONCE ONE Stop: 01/12/19 08:15 Mupirocin (Bactroban Ointment (For Decolonization) -) 1 applic NS BID [facility] Stop: 01/15/19 21:59 Last Admin: 01/13/19 09:51 Dose: 1 applic Potassium Chloride (K-Dur -) 40 meq PO DAILY [facility] Last Admin: 01/13/19 09:50 Dose: 40 meq Rosuvastatin Calcium (Crestor -) 5 mg PO HS [facility] Last Admin: 01/12/19 22:35 Dose: 5 mg Warfarin Sodium (Coumadin -) 5 mg PO DAILY@1800 [facility] Last Admin: 01/12/19 18:47 Dose: 5 mg ASSESSMENT AND PLAN: Acute Hypoxic Respiratory Failure Acute on Chronic Diastolic Heart Failure Volume Overload Atrial Fibrillation Acute on Chronic Renal Failure COPD Anemia Hypercholesterolemia - HD per renal with ultrafiltration - will check bedside ultrasound to assess pleural effusions and therapeutic thoracentesis if present - daily weights - taper HFOT O2 to keep SpO2 >90% - rate control - continue anticoagulation - continue ICU monitoring for tenuous respiratory status critical care time spent reviewing chart, evaluating patient and formulating plan 35 min
[2019-01-13] MEDS ORDERED: LIDOCAINE HCL 1%, 10 MG/ML (20ML VIAL) ONE (14:34)
--- NOTE | 2019-01-13 15:08 | PROC ---
Chest Tube Insertion Consent on Chart: Yes Risks and Benefits Explained: Yes Chest tube #1 Indication: Pleural Effusion Chest Tube Location: Left Posterior Anesthesia: 1% Lidocaine Size (Fr.): 10 Sterile Technique: Yes Tube Sutured to Skin: Yes Vaseline gauze dressing: No (Biopatch with tegaderm) Chest Tube Collection System: Pleur-Evac Suction: Yes Drainage, Color/Appearance: Serous, Straw, Cloudy Remarks: Pt tolerated procedure well.
--- NOTE | 2019-01-13 15:54 | PN ---
Teaching Attending Note Name of Resident: Ernestina Hodges ATTENDING PHYSICIAN STATEMENT I saw and evaluated the patient. I reviewed the resident's note and discussed the case with the resident. I agree with the resident's findings and plan as documented with exceptions below. SUBJECTIVE: Patient seen and examined. overall unchanged, ongoing dyspnea. Unsure if swelling has improved, having lunch. OBJECTIVE: Vital Signs Period Temp Pulse Resp BP Sys/Ascencio Pulse Ox Last 24 Hr 97.3 F-98.5 F 51-73 22-34 98-118/50-63 88-95 Intake & Output 01/10/19 01/11/19 01/12/19 01/13/19 23:59 23:59 23:59 23:59 Intake Total 944 1166 1124 372 Output Total 150 50 0 Balance 794 1116 1124 372 Weight 196 lb 6.4 oz 196 lb 3.2 oz 194 lb 9.6 oz General: sitting in bed, mild use of accessory muscles of respiration Chest; Decreased breath sounds at bases, scattered basilar rales Abdomen:Soft, NT Extremities; 2+ pedal pitting edema Home Medications Medication Instructions Recorded Ranolazine [Ranexa -] 500 mg PO BID 03/22/12 Cholecalciferol (Vitamin D3) 2,000 unit PO DAILY 03/13/18 [Vitamin D -] Vit A/Vit C/Vit E/Zinc/Copper 1 each PO DAILY 03/13/18 [Preservision Areds Tablet] Metoprolol Succinate [Toprol Xl] 25 mg PO DAILY 03/18/18 Losartan Potassium [Cozaar -] 25 mg PO DAILY tablet 10/06/18 Warfarin Sodium 5 mg PO HS 30 Days #30 tablet 10/06/18 Allopurinol [Zyloprim -] 150 mg PO DAILY 12/30/18 Furosemide [Lasix] 40 mg PO DAILY 12/30/18 Rosuvastatin [Crestor -] 3 mg PO HS 12/30/18 Active Medications Albuterol Sulfate (Ventolin 0.083% Nebulizer Soln -) 1 amp NEB Q4H PRN PRN Reason: SHORT OF BREATH/WHEEZING Last Admin: 01/13/19 04:05 Dose: 1 amp Artificial Tears (Artificial Tears) 1 drop OU TID PRN PRN Reason: DRY EYES Last Admin: 01/12/19 22:35 Dose: 1 drop Chlorhexidine Gluconate (Hibiclens For Decolonization -) 1 applic TP HS [facility] Last Admin: 01/12/19 22:35 Dose: 1 applic Heparin Sodium (Porcine) (Heparin -) 1,000 unit IVPUSH PRN PRN PRN Reason: Heparin Heparin Sodium (Porcine) (Heparin -) 5,000 unit IVPUSH PRN PRN PRN Reason: Heparin Heparin Sodium/Dextrose (Heparin Infusion -) 25,000 units in 500 mls @ 20 mls/ hr IV TITR JAYCE; Protocol Last Titration: 01/13/19 11:30 Dose: 0 units/hr, 0 mls/hr Sodium Chloride (Normal Saline -) 250 mls @ 3,000 mls/hr IV PRN PRN PRN Reason: Hypotension during Dialysis Stop: 01/13/19 07:40 Iron Sucrose 100 mg/ Sodium (Chloride) 100 mls @ 200 mls/hr IVPB ONCE ONE Stop: 01/12/19 08:15 Mupirocin (Bactroban Ointment (For Decolonization) -) 1 applic NS BID JAYCE Stop: 01/15/19 21:59 Last Admin: 01/13/19 09:51 Dose: 1 applic Potassium Chloride (K-Dur -) 40 meq PO DAILY [facility] Last Admin: 01/13/19 09:50 Dose: 40 meq Rosuvastatin Calcium (Crestor -) 5 mg PO HS [facility] Last Admin: 01/12/19 22:35 Dose: 5 mg Warfarin Sodium (Coumadin -) 5 mg PO DAILY@1800 JAYCE Last Admin: 01/12/19 18:47 Dose: 5 mg Laboratory Results - last 24 hr 01/12/19 01/13/19 01/13/19 23:40 05:30 05:30 WBC 4.6 RBC 2.62 L Hgb 8.6 L Hct 25.4 L MCV 96.9 H MCH 32.9 MCHC 34.0 RDW 16.0 H Plt Count 82 L MPV 8.7 PT with INR 19.20 H INR 1.62 H PTT (Actin FS) Sodium Potassium Chloride Carbon Dioxide Anion Gap BUN Creatinine Creat Clearance w eGFR Random Glucose Calcium Phosphorus Magnesium Total Bilirubin AST ALT Alkaline Phosphatase Total Protein Albumin Stool Occult Blood Negative 01/13/19 01/13/19 05:30 05:30 WBC RBC Hgb Hct MCV MCH MCHC RDW Plt Count MPV PT with INR INR PTT (Actin FS) 72.0 H Sodium 138 Potassium 3.4 L Chloride 102 Carbon Dioxide 25 Anion Gap 11 BUN 52 H Creatinine 5.1 H Creat Clearance w eGFR 10.73 Random Glucose 95 Calcium 8.0 L Phosphorus 5.2 H Magnesium 2.1 Total Bilirubin 0.4 AST 29 ALT 11 L Alkaline Phosphatase 75 Total Protein 6.0 L Albumin 2.7 L Stool Occult Blood CXR results and images reviewed ASSESSMENT AND PLAN: 88 yom CAD s/p CABG (JHAVERI to mLAD, SVG to RPDA), s/p PCI/LUIS EDUARDO to LAD, persistent AF on Coumadin, diastolic dysfunction with h/o failure, HTN, hypercholesterolemia and carotid stenosis, 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 -Acute on chronic diastolic+/- systolic heart failure exacerbation (prior on lasix drip, now on HD) -Bilateral pleural effusions s/p left chest tube placement 01/13/2019 -Acute hypoxic repiratory failure -Cardiogenic shock off pressors (Prior on dobutamine then levophed drip_ -Hypotension suspect cardiogenic -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, suspect cardiorenal from CHF -Perisistent Atrial fibrillation on coumadin -Anemia, suspect multifactorial from renal disease, blood draws, monitor for occult bleed -Coumadin coagulopathy -CAD s/p CABG (JHAVERI to mLAD, SVG to RPDA), s/p PCI/LUIS EDUARDO to LAD -HTN -HLD -Carotid stenosis PLan: Increased oxygen requirements. Failure to get off HFOT with dialysis. s/p left chest tube placement. Ongoing HD for fluid removal. respiratory status still tenuous.Bipap prn. For HD today s/p permacath 01/10 metoprolol held given bradycardia and hypotension. Heparin drip, on hold for chest tube. coumadin with daily INR. Crestor. Resume ranexa as able. s/p 1 unit PRBC, monitor. DVTPPX heparin drip Prognosis overall poor. Pallliative care to address overall goals of care. Dispo ICU level of care. Plan discussed with patient and nursing Care co-ordinated with ICU. Discussed with CM about possible LTach dc with continued HD if able to wean off HFOT. Total critical care time spent 34 min
[2019-01-13 16:58] LABS: BF WBC & OTHER NUCLEATED CELLS 294 /mm3
--- NOTE | 2019-01-13 17:52 | PN ---
Physical Exam: SUBJECTIVE: Patient seen and examined Increased oxygen requirements. s/p left chest tube placement. OBJECTIVE: Vital Signs Period Temp Pulse Resp BP Sys/Ascencio Pulse Ox Last 24 Hr 97.3 F-98.5 F 51-73 19-34 71-118/42-63 88-98 GENERAL: The patient is awake, alert, and fully oriented,some discomfort with breathing LUNGS: scattered rhonchi HEART: Regular rate and rhythm, S1, S2 without murmur, rub or gallop. ABDOMEN: Soft, nontender, nondistended, normoactive bowel sounds, no guarding, no rebound, no hepatosplenomegaly, no masses. EXTREMITIES: 2+ pulses, warm, well-perfused, + edema. NEUROLOGICAL: Cranial nerves II through XII grossly intact. Normal speech, gait not observed. PSYCH: Normal mood, normal affect. SKIN: Warm, dry, normal turgor, no rashes or lesions noted Laboratory Results - last 24 hr 01/12/19 01/13/19 01/13/19 23:40 05:30 05:30 WBC 4.6 RBC 2.62 L Hgb 8.6 L Hct 25.4 L MCV 96.9 H MCH 32.9 MCHC 34.0 RDW 16.0 H Plt Count 82 L MPV 8.7 PT with INR 19.20 H INR 1.62 H PTT (Actin FS) Sodium Potassium Chloride Carbon Dioxide Anion Gap BUN Creatinine Creat Clearance w eGFR Random Glucose Calcium Phosphorus Magnesium Total Bilirubin AST ALT Alkaline Phosphatase Total Protein Albumin Fluid Source Fluid WBC Fluid RBC Stool Occult Blood Negative 01/13/19 01/13/19 01/13/19 05:30 05:30 15:00 WBC RBC Hgb Hct MCV MCH MCHC RDW Plt Count MPV PT with INR INR PTT (Actin FS) 72.0 H Sodium 138 Potassium 3.4 L Chloride 102 Carbon Dioxide 25 Anion Gap 11 BUN 52 H Creatinine 5.1 H Creat Clearance w eGFR 10.73 Random Glucose 95 Calcium 8.0 L Phosphorus 5.2 H Magnesium 2.1 Total Bilirubin 0.4 AST 29 ALT 11 L Alkaline Phosphatase 75 Total Protein 6.0 L Albumin 2.7 L Fluid Source Pleural Fluid WBC 294 Fluid RBC 2330 Stool Occult Blood Active Medications Generic Name Dose Route Start Last Admin Trade Name Freq PRN Reason Stop Dose Admin Albuterol Sulfate 1 amp 01/11/19 15:06 01/13/19 04:05 Ventolin 0.083% Nebulizer Soln - NEB 1 amp Q4H PRN Administration SHORT OF BREATH/WHEEZING Artificial Tears 1 drop 01/11/19 15:06 01/12/19 22:35 Artificial Tears OU 1 drop TID PRN Administration DRY EYES Chlorhexidine Gluconate 1 applic 01/10/19 22:00 01/12/19 22:35 Hibiclens For Decolonization - TP 1 applic HS JAYCE Administration Heparin Sodium (Porcine) 1,000 unit 01/11/19 15:06 Heparin - IVPUSH PRN PRN Heparin Heparin Sodium (Porcine) 5,000 unit 01/11/19 15:06 Heparin - IVPUSH PRN PRN Heparin Heparin Sodium/Dextrose 25,000 units in 500 mls @ 20 mls/hr 01/11/19 15:06 11:30 Heparin Infusion - IV 0 units/hr TITR JAYCE 0 mls/hr Titration Protocol 1,000 UNITS/HR Sodium Chloride 250 mls @ 3,000 mls/hr 01/12/19 07:40 Normal Saline - IV 01/13/19 07:40 PRN PRN Hypotension during Dialysis Iron Sucrose 100 mg/ Sodium 100 mls @ 200 mls/hr 01/12/19 07:46 Chloride IVPB 01/12/19 08:15 ONCE ONE Mupirocin 1 applic 01/10/19 22:00 01/13/19 09:51 Bactroban Ointment (For Decolonization) - NS 01/15/19 21:59 1 applic BID JAYCE Administration Potassium Chloride 40 meq 01/12/19 10:00 01/13/19 09:50 K-Dur - PO 40 meq DAILY JAYCE Administration Rosuvastatin Calcium 5 mg 01/11/19 22:00 01/12/19 22:35 Crestor - PO 5 mg HS JAYCE Administration Warfarin Sodium 5 mg 01/11/19 18:00 01/12/19 18:47 Coumadin - PO 5 mg DAILY@1800 JAYCE Administration ASSESSMENT/PLAN: This is a 88 year old male with a history of CAD s/p CABG, s/p PCI/LUIS EDUARDO , persistent atrial fibrillation, diastolic congestive heart failure, HTN, carotid stenosis who presented with worsening SON, orthopnea, b/l leg edema, found to be in acute heart failure. #Acute on chronic diastolic heart failure -s/p chest tube; f/u fluid analysis -daily weights, strict I/Os; christina in place -cardio , renal -HD; lasix drip #Acute hypoxic respiratory failure - sec to vol overload; on high flow; s/p chest tube #Atrial fibrillation -rate controlled -on heparin ggt #Acute on chronic kidney disease; permacath -HD s -cardio; renal vs sec to hypotension; -urine lytes -stirct i/os -ua, uc #Macrocytic Anemia; monitor for acute bleed; stable -stool for acute blood negative -s/p 1UPRBC #thrombocytopenia: platelets 80s -ML due to congestive changes -abdominal US +hepatomegaly; #hypokalemia; -replace #hyperphosphetema; sec renal failure -hd; phos lo #UTI: -completed antibiotics course #COPD -; cont IH bronchodilators #HTN -hold home meds; #HLD -statin Dispo: ICU monitoring Visit type - Emergency Visit Emergency Visit: Yes ED Registration Date: 12/30/18 Care time: The patient presented to the Emergency Department on the above date and was hospitalized for further evaluation of their emergent condition. - New Patient This patient is new to me today: No - Critical Care Critical Care patient: Yes Total Critical Care Time (in minutes): 35 Critical Care Statement: The care of this patient involved high complexity decision making to prevent further life threatening deterioration of the patient 's condition and/or to evaluate & treat vital organ system(s) failure or risk of failure.
[2019-01-13] MEDS: WARFARIN NA 5 MG TABLET (UD) PO SCH (18:48)
[2019-01-13] MEDS: HEPARIN INFUSION - 25,000 UNITS/500 ML INFUS.BAG IV SCH (18:49)
[2019-01-13 20:05] LABS: CHOLESTEROL 73 mg/dL (50-200)
[2019-01-13 20:22] LABS: LDH 244 U/L (87-246)
[2019-01-13 21:43] LABS: BODY FLUID MACROPHAGES 21 %; BODY FLUID MESOTHELIAL 10 %; BODY FLUID MONOCYTE 7 %
[2019-01-13] MEDS ORDERED: PT OWN MED DRAWER 7, Y5N ONE (21:56)
[2019-01-13] MEDS: ROSUVASTATIN CA 5 MG TABLET (FP) PO SCH (22:44)
[2019-01-13] MEDS: CHLORHEXIDINE GLUCONATE 4% CLEANSER FOR DECOLONIZATION TP SCH (22:44)
[2019-01-14 06:07] LABS: HEMOGLOBIN 8.5 GM/dL (11.7-16.9); MCH 31.6 pg (25.7-33.7); MCHC 32.8 g/dl (32.0-35.9); MEAN CELL VOLUME 96.5 fl (80-96); PLATELET COUNT 53 K/MM3 (134-434); RBC 2.69 M/mm3 (4.00-5.60); RDW 16.1 % (11.9-15.9); WHITE BLOOD COUNT 4.5 K/mm3 (4.0-10.0)
[2019-01-14 08:04] LABS: ANION GAP 8 MMOL/L (8-16); BLOOD UREA NITROGEN 35 mg/dL (7-18); CALCIUM 8.2 mg/dL (8.5-10.1); CHLORIDE 105 mmol/L (98-107); CO2 28 mmol/L (21-32); CREATININE 3.8 mg/dL (0.55-1.3); GLUCOSE,RANDOM 93 mg/dL (74-106); MAGNESIUM 2.2 mg/dL (1.8-2.4); PHOSPHOROUS 4.1 mg/dL (2.5-4.9); POTASSIUM 3.2 mmol/L (3.5-5.1); SODIUM 141 mmol/L (136-145)
[2019-01-14] MEDS: ALBUTEROL SO4 0.083% IH SOL 2.5 MG/3 ML VIAL.NEB. NEB PRN (08:09)
--- NOTE | 2019-01-14 08:32 | PN ---
Physical Exam: SUBJECTIVE: Patient seen and examined this AM. He states that he feels better today than yesterday and that he thinks the chest tube placement yesterday must have helped him a lot. Discussed with patient the likelihood of doing a chest tube in the right side today. OBJECTIVE: Vital Signs Period Temp Pulse Resp BP Sys/Ascencio Pulse Ox Last 24 Hr 97 F-98.5 F 45-73 19-34 71-106/42-57 89-98 GEN: A&O, no acute distress HEENT: PERRL, moist mucus membranes NECK: Supple, no lymphadenopathy HEART: RRR, no murmurs noted LUNGS: diffuse rhonchi improving, decreased breath sounds on the right, left chest tube in place ABDOMEN: Soft, nontender, normoactive bowel sounds EXTREMITIES: no edema seen in b/l LE, no calf tenderness noted Laboratory Results - last 24 hr 01/13/19 01/13/19 01/14/19 05:30 15:00 00:00 WBC RBC Hgb Hct MCV MCH MCHC RDW Plt Count MPV PTT (Actin FS) 62.5 H Sodium 138 Potassium 3.4 L Chloride 102 Carbon Dioxide 25 Anion Gap 11 BUN 52 H Creatinine 5.1 H Creat Clearance w eGFR 10.73 Random Glucose 95 Calcium 8.0 L Phosphorus 5.2 H Magnesium 2.1 Total Bilirubin 0.4 AST 29 ALT 11 L Alkaline Phosphatase 75 LD Total 244 Total Protein 6.0 L Albumin 2.7 L Cholesterol 73 Fluid Source Pleural Fluid WBC 294 Fluid RBC 2330 Fluid Neutrophils 13 Fluid Lymphocytes 49 Pleural Monocytes 7 Pleural Macrophages 21 Pleural Mesothelial 10 01/14/19 01/14/19 05:30 07:32 WBC 4.5 RBC 2.69 L Hgb 8.5 L Hct 26.0 L MCV 96.5 H MCH 31.6 MCHC 32.8 RDW 16.1 H Plt Count 53 L D MPV 8.0 PTT (Actin FS) Sodium 141 Potassium 3.2 L Chloride 105 Carbon Dioxide 28 Anion Gap 8 BUN 35 H Creatinine 3.8 H Creat Clearance w eGFR 15.07 Random Glucose 93 Calcium 8.2 L Phosphorus 4.1 Magnesium 2.2 Total Bilirubin AST ALT Alkaline Phosphatase LD Total Total Protein Albumin Cholesterol Fluid Source Fluid WBC Fluid RBC Fluid Neutrophils Fluid Lymphocytes Pleural Monocytes Pleural Macrophages Pleural Mesothelial Active Medications Generic Name Dose Route Start Last Admin Trade Name Freq PRN Reason Stop Dose Admin Albuterol Sulfate 1 amp 01/11/19 15:06 01/14/19 08:09 Ventolin 0.083% Nebulizer Soln - NEB 1 amp Q4H PRN Administration SHORT OF BREATH/WHEEZING Artificial Tears 1 drop 01/11/19 15:06 01/12/19 22:35 Artificial Tears OU 1 drop TID PRN Administration DRY EYES Chlorhexidine Gluconate 1 applic 01/10/19 22:00 01/13/19 22:44 Hibiclens For Decolonization - TP 1 applic HS JAYCE Administration Heparin Sodium (Porcine) 1,000 unit 01/11/19 15:06 Heparin - IVPUSH PRN PRN Heparin Heparin Sodium (Porcine) 5,000 unit 01/11/19 15:06 Heparin - IVPUSH PRN PRN Heparin Heparin Sodium/Dextrose 25,000 units in 500 mls @ 20 mls/hr 01/11/19 15:06 19:00 Heparin Infusion - IV 1,050 units/hr TITR JAYCE 21 mls/hr Titration Protocol 1,000 UNITS/HR Sodium Chloride 250 mls @ 3,000 mls/hr 01/12/19 07:40 Normal Saline - IV 01/13/19 07:40 PRN PRN Hypotension during Dialysis Iron Sucrose 100 mg/ Sodium 100 mls @ 200 mls/hr 01/12/19 07:46 Chloride IVPB 01/12/19 08:15 ONCE ONE Mupirocin 1 applic 01/10/19 22:00 01/13/19 22:44 Bactroban Ointment (For Decolonization) - NS 01/15/19 21:59 1 applic BID JAYCE Administration Potassium Chloride 40 meq 01/12/19 10:00 01/13/19 09:50 K-Dur - PO 40 meq DAILY JAYCE Administration Rosuvastatin Calcium 5 mg 01/11/19 22:00 01/13/19 22:44 Crestor - PO 5 mg HS JAYCE Administration Warfarin Sodium 5 mg 01/11/19 18:00 01/13/19 18:48 Coumadin - PO 5 mg DAILY@1800 JAYCE Administration ASSESSMENT/PLAN: Patient is an 88 year old male who presented for worsening shortness of breath and was found to have CHF exacerbation with hypotension. Patient admitted to ICU for further monitoring and management. NEURO -Awake, Alert and oriented -On no sedation PULMONARY #Acute Hypoxic Respiratory Failure -Likely ATN without recovery of renal function and inadequate diuresis -Requiring High Flow O2 for pressure support and respiratory status, attempt to wean as able -Did not respond to lasix IV or drip, requiring HD for fluid removal at this time -Renal and bladder US without any signs of obstruction -Strict I&O's -Daily weights -Cardiology consult appreciated -Still with effusion on CXR SOB and tachypnea on HF, Left chest tube 01/13, 2500 cc output in last 24 hours -Will place right chest tube today, pending INR and manual diff with low platelet count noted #COPD -No acute exacerbation -Albuterol nebulizer PRN -Maintain 02 Saturation >90% CARDIOLOGY #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 -Likely Cardio-Renal Syndrome -Repeat ECHO with normal EF, dilated RV and RA -Off pressors -Low sodium diet -Lester placed for strict I&O's -Daily weights -Hold B-mukesh until more hemodynamically stable #Permanent atrial fibrillation -[id number] -Warfarin, monitor INR #CAD s/p CABG -s/p PCI/LUIS EDUARDO to LAD -Continue Rosuvastatin, ASA and BB as hemodynamically tolerates -Maintain Hgb > 8 #HTN -Hold anti-htn medications as patient is hypotensive -No longer requiring pressors #HLD -Continue home Crestor NEPHROLOGY #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 -Likely ATN -Baseline around 1.5 -Kidney/Bladder U/S without signs of obstruction -Avoid nephrotoxic medications -Renally dose medications -Will hold CAROLYN/ARB for now -Nephrology consult appreciated -Monitor BMP -Requiring dialysis for volume removal, though urine output and color slightly improved -Permacath placed 01/10 INFECTIOUS DISEASE #UTI - Resolved -Completed course of Rocephin -Urine culture grew Enterococcus HEMATOLOGY #Supratherapeutic INR - resolved -Restart warfarin, monitor INR daily #Macrocytic Anemia -With possible superimposed chronic anemia -Renal consult appreciated -Continue to monitor CBC -Iron studies normal -IV iron ordered by nephrology for during dialysis F/E/N -None -HyperPhos. Continue to monitor -Sodium controlled diet Prophylaxis -Heparin drip, warfarin restarted, awaiting therapeutic INR -No GI required LINES -Permacath placed 01/10 Disposition -Full code -Monitor in ICU on High Flow O2 Visit type - Emergency Visit Emergency Visit: Yes ED Registration Date: 12/30/18 Care time: The patient presented to the Emergency Department on the above date and was hospitalized for further evaluation of their emergent condition. - New Patient This patient is new to me today: No - Critical Care Critical Care patient: Yes Total Critical Care Time (in minutes): 48 Critical Care Statement: The care of this patient involved high complexity decision making to prevent further life threatening deterioration of the patient 's condition and/or to evaluate & treat vital organ system(s) failure or risk of failure.
[2019-01-14] MEDS ORDERED: POTASSIUM CHLORIDE ORAL LIQUID 20 MEQ/15 ML PO SCH (10:00)
--- NOTE | 2019-01-14 11:36 | PN ---
Teaching Attending Note Name of Resident: Ernestina Hodges ATTENDING PHYSICIAN STATEMENT I saw and evaluated the patient. I reviewed the resident's note and discussed the case with the resident. I agree with the resident's findings and plan as documented with exceptions below. SUBJECTIVE: patient seen and examined. overall unchanged, no new complaints. OBJECTIVE: Vital Signs Period Temp Pulse Resp BP Sys/Ascencio Pulse Ox Last 24 Hr 97 F-98.5 F 45-73 19-29 71-106/42-59 89-98 Intake & Output 01/11/19 01/12/19 01/13/19 01/14/19 23:59 23:59 23:59 23:59 Intake Total 1166 1124 1064 262 Output Total 50 0 2550 80 Balance 1116 1124 -1486 182 Weight 196 lb 3.2 oz 194 lb 9.6 oz 188 lb 14.4 oz General: in bed on high flow oxygen, weak looking, mild use of accessory muscles of respiration Chest decreased effort, decreased breath sounds at bases, left side air entry improved, bibasilar rales Abdomen:Soft, NT Extremities: unchanged pedal edema Home Medications Medication Instructions Recorded Ranolazine [Ranexa -] 500 mg PO BID 03/22/12 Cholecalciferol (Vitamin D3) 2,000 unit PO DAILY 03/13/18 [Vitamin D -] Vit A/Vit C/Vit E/Zinc/Copper 1 each PO DAILY 03/13/18 [Preservision Areds Tablet] Metoprolol Succinate [Toprol Xl] 25 mg PO DAILY 03/18/18 Losartan Potassium [Cozaar -] 25 mg PO DAILY tablet 10/06/18 Warfarin Sodium 5 mg PO HS 30 Days #30 tablet 10/06/18 Allopurinol [Zyloprim -] 150 mg PO DAILY 12/30/18 Furosemide [Lasix] 40 mg PO DAILY 12/30/18 Rosuvastatin [Crestor -] 3 mg PO HS 12/30/18 Active Medications Albuterol Sulfate (Ventolin 0.083% Nebulizer Soln -) 1 amp NEB Q4H PRN PRN Reason: SHORT OF BREATH/WHEEZING Last Admin: 01/14/19 08:09 Dose: 1 amp Artificial Tears (Artificial Tears) 1 drop OU TID PRN PRN Reason: DRY EYES Last Admin: 01/12/19 22:35 Dose: 1 drop Chlorhexidine Gluconate (Hibiclens For Decolonization -) 1 applic TP HS [facility] Last Admin: 01/13/19 22:44 Dose: 1 applic Heparin Sodium (Porcine) (Heparin -) 1,000 unit IVPUSH PRN PRN PRN Reason: Heparin Heparin Sodium (Porcine) (Heparin -) 5,000 unit IVPUSH PRN PRN PRN Reason: Heparin Heparin Sodium/Dextrose (Heparin Infusion -) 25,000 units in 500 mls @ 20 mls/ hr IV TITR JAYCE; Protocol Last Titration: 01/14/19 08:15 Dose: 0 units/hr, 0 mls/hr Sodium Chloride (Normal Saline -) 250 mls @ 3,000 mls/hr IV PRN PRN PRN Reason: Hypotension during Dialysis Stop: 01/13/19 07:40 Iron Sucrose 100 mg/ Sodium (Chloride) 100 mls @ 200 mls/hr IVPB ONCE ONE Stop: 01/12/19 08:15 Mupirocin (Bactroban Ointment (For Decolonization) -) 1 applic NS BID [facility] Stop: 01/15/19 21:59 Last Admin: 01/13/19 22:44 Dose: 1 applic Potassium Chloride (Potassium Chloride Oral Liquid) 40 meq PO BID [facility] Stop: 01/14/19 22:01 Last Admin: 01/14/19 09:11 Dose: 40 meq Rosuvastatin Calcium (Crestor -) 5 mg PO [facility] Last Admin: 01/13/19 22:44 Dose: 5 mg Warfarin Sodium (Coumadin -) 5 mg PO DAILY@1800 [facility] Last Admin: 01/13/19 18:48 Dose: 5 mg Laboratory Results - last 24 hr 01/13/19 01/13/19 01/14/19 05:30 15:00 00:00 WBC RBC Hgb Hct MCV MCH MCHC RDW Plt Count MPV PTT (Actin FS) 62.5 H Sodium 138 Potassium 3.4 L Chloride 102 Carbon Dioxide 25 Anion Gap 11 BUN 52 H Creatinine 5.1 H Creat Clearance w eGFR 10.73 Random Glucose 95 Calcium 8.0 L Phosphorus 5.2 H Magnesium 2.1 Total Bilirubin 0.4 AST 29 ALT 11 L Alkaline Phosphatase 75 LD Total 244 Total Protein 6.0 L Albumin 2.7 L Cholesterol 73 Fluid Source Pleural Fluid WBC 294 Fluid RBC 2330 Fluid Neutrophils 13 Fluid Lymphocytes 49 Pleural Monocytes 7 Pleural Macrophages 21 Pleural Mesothelial 10 01/14/19 01/14/19 05:30 07:32 WBC 4.5 RBC 2.69 L Hgb 8.5 L Hct 26.0 L MCV 96.5 H MCH 31.6 MCHC 32.8 RDW 16.1 H Plt Count 53 L D MPV 8.0 PTT (Actin FS) Sodium 141 Potassium 3.2 L Chloride 105 Carbon Dioxide 28 Anion Gap 8 BUN 35 H Creatinine 3.8 H Creat Clearance w eGFR 15.07 Random Glucose 93 Calcium 8.2 L Phosphorus 4.1 Magnesium 2.2 Total Bilirubin AST ALT Alkaline Phosphatase LD Total Total Protein Albumin Cholesterol Fluid Source Fluid WBC Fluid RBC Fluid Neutrophils Fluid Lymphocytes Pleural Monocytes Pleural Macrophages Pleural Mesothelial CXR images and results from today reviewed telemetry: bradycardia with PVCs, NSVT ASSESSMENT AND PLAN: 88 yom CAD s/p CABG (JHAVERI to mLAD, SVG to RPDA), s/p PCI/LUIS EDUARDO to LAD, persistent AF on Coumadin, diastolic dysfunction with h/o failure, HTN, hypercholesterolemia and carotid stenosis, CKD stage II-III (last 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 -Acute on chronic diastolic+/- systolic heart failure exacerbation (prior on lasix drip, now on HD) -Bilateral pleural effusions s/p left chest tube placement 01/13/2019 -Acute hypoxic repiratory failure -Cardiogenic shock off pressors (Prior on dobutamine then levophed drip_ -Hypotension suspect cardiogenic -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, suspect cardiorenal from CHF -Perisistent Atrial fibrillation on coumadin -Anemia, suspect multifactorial from renal disease, blood draws, monitor for occult bleed -Coumadin coagulopathy -CAD s/p CABG (JHAVERI to mLAD, SVG to RPDA), s/p PCI/LUIS EDUARDO to LAD -HTN -HLD -Carotid stenosis PLan: s/p left chest tube placement with significant drainage. Follow up pleural fluid studies. Still with significant Right side effusion, may need another chest tube if fails to taper off oxygen. Ongoing HD for fluid removal. respiratory status still tenuous.Bipap prn. HD per renal. s/p permacath 01/10 metoprolol held given bradycardia and hypotension. Heparin drip. coumadin with daily INR. Crestor. Resume ranexa as able. s/p 1 unit PRBC and IV iron, monitor. DVTPPX heparin drip Prognosis overall poor. Pallliative care to address overall goals of care. Dispo ICU level of care. Plan discussed with patient and nursing Care co-ordinated with ICU. Discussed with CM about possible LTach dc with continued HD if able to wean off HFOT. Total critical care time spent 36 min
[2019-01-14] MEDS: MUPIROCIN 2% TOPICAL OINTMENT FOR DECOLONIZATION NS SCH ×2 (12:02→21:51)
[2019-01-14 12:49] LABS: BASO % 1.5 % (0-2.0); EOS % 2.9 % (0-4.5); HEMATOCRIT 26.3 % (35.4-49); HEMOGLOBIN 8.7 GM/dL (11.7-16.9); LYMPH % 10.1 % (8-40); MCH 32.2 pg (25.7-33.7); MCHC 33.1 g/dl (32.0-35.9); MEAN CELL VOLUME 97.3 fl (80-96); MEAN PLT VOLUME 8.6 fl (7.5-11.1); MONO % 14.2 % (3.8-10.2); NEUT % 71.3 % (42.8-82.8); PLATELET COUNT 59 K/MM3 (134-434); RDW 16.6 % (11.9-15.9); WHITE BLOOD COUNT 4.8 K/mm3 (4.0-10.0)
[2019-01-14 13:04] LABS: INR 2.53 (0.83-1.09); PROTHROMBIN TIME (PATIENT) 30.1 SEC (9.7-13.0)
--- NOTE | 2019-01-14 13:34 | PN ---
Progress Note, Physician History of Present Illness: Remains on HFO2, hemodynamics stable, started HD via PC. Left chest tube inserted. Toprol held for bradycardia and hypotension. - Current Medication List Current Medications: Active Medications Albuterol Sulfate (Ventolin 0.083% Nebulizer Soln -) 1 amp NEB Q4H PRN PRN Reason: SHORT OF BREATH/WHEEZING Last Admin: 01/14/19 08:09 Dose: 1 amp Artificial Tears (Artificial Tears) 1 drop OU TID PRN PRN Reason: DRY EYES Last Admin: 01/12/19 22:35 Dose: 1 drop Chlorhexidine Gluconate (Hibiclens For Decolonization -) 1 applic TP HS [facility] Last Admin: 01/13/19 22:44 Dose: 1 applic Heparin Sodium (Porcine) (Heparin -) 1,000 unit IVPUSH PRN PRN PRN Reason: Heparin Heparin Sodium (Porcine) (Heparin -) 5,000 unit IVPUSH PRN PRN PRN Reason: Heparin Heparin Sodium/Dextrose (Heparin Infusion -) 25,000 units in 500 mls @ 20 mls/ hr IV TITR JAYCE; Protocol Last Titration: 01/14/19 08:15 Dose: 0 units/hr, 0 mls/hr Sodium Chloride (Normal Saline -) 250 mls @ 3,000 mls/hr IV PRN PRN PRN Reason: Hypotension during Dialysis Stop: 01/13/19 07:40 Iron Sucrose 100 mg/ Sodium (Chloride) 100 mls @ 200 mls/hr IVPB ONCE ONE Stop: 01/12/19 08:15 Mupirocin (Bactroban Ointment (For Decolonization) -) 1 applic NS BID [facility] Stop: 01/15/19 21:59 Last Admin: 01/14/19 12:02 Dose: 1 applic Rosuvastatin Calcium (Crestor -) 5 mg PO HS [facility] Last Admin: 01/13/19 22:44 Dose: 5 mg Warfarin Sodium (Coumadin -) 5 mg PO DAILY@1800 JAYCE Last Admin: 01/13/19 18:48 Dose: 5 mg - Objective Vital Signs: Vital Signs Temperature 98.5 F 01/14/19 10:00 Pulse Rate 45 L 01/14/19 12:00 Respiratory Rate 23 H 01/14/19 12:00 Blood Pressure 86/61 L 01/14/19 12:00 O2 Sat by Pulse Oximetry (%) 96 01/14/19 10:00 Constitutional: Yes: No Distress, Calm, Thin Neck: Yes: Supple Cardiovascular: Yes: Regular Rate and Rhythm Respiratory: Yes: Regular, Diminished, On Nasal O2, Other (Left chest tube in place) Gastrointestinal: Yes: Normal Bowel Sounds, Soft Edema: No Labs: CBC, BMP 01/14/19 12:35 01/14/19 07:32 INR, PTT INR 2.53 (0.83-1.09) H 01/14/19 12:35 - ....Imaging EKG: Report Reviewed (Tele: SB) Problem List - Problems (1) [id number] kidney injury Code(s): N17.9 - ACUTE KIDNEY FAILURE, UNSPECIFIED; N18.9 - CHRONIC KIDNEY DISEASE, UNSPECIFIED Qualifiers: Acute renal failure type: unspecified Chronic kidney disease stage: unspecified stage Qualified Code(s): N17.9 - Acute kidney failure, unspecified ; N18.9 - Chronic kidney disease, unspecified (2) Acute on chronic diastolic (congestive) heart failure Code(s): I50.33 - ACUTE ON CHRONIC DIASTOLIC (CONGESTIVE) HEART FAILURE (3) CAD (coronary artery disease) Code(s): I25.10 - ATHSCL HEART DISEASE OF [place] CORONARY ARTERY W/O ANG PCTRS Qualifiers: Coronary Disease-Associated Artery/Lesion type: [place] artery [place] vs. transplanted heart: [place] heart Associated angina: without angina Qualified Code(s): I25.10 - Atherosclerotic heart disease of [place] coronary artery without angina pectoris (4) COPD (chronic obstructive pulmonary disease) Code(s): J44.9 - CHRONIC OBSTRUCTIVE PULMONARY DISEASE, UNSPECIFIED Qualifiers: COPD type: unspecified COPD Qualified Code(s): J44.9 - Chronic obstructive pulmonary disease, unspecified (5) Chronic anemia Code(s): D64.9 - ANEMIA, UNSPECIFIED (6) Chronic anticoagulation Code(s): Z79.01 - CUSTOMER SUPPORT ANALYST (CURRENT) USE OF ANTICOAGULANTS (7) HTN (hypertension) Code(s): I10 - ESSENTIAL (PRIMARY) HYPERTENSION Qualifiers: Hypertension type: essential hypertension Qualified Code(s): I10 - Essential (primary) hypertension (8) Hx of CABG Code(s): Z95.1 - PRESENCE OF AORTOCORONARY BYPASS GRAFT (9) SOB (shortness of breath) Code(s): R06.02 - SHORTNESS OF BREATH (10) Status post insertion of drug-eluting stent into left anterior descending ( LAD) artery Code(s): Z95.5 - PRESENCE OF CORONARY ANGIOPLASTY IMPLANT AND GRAFT (11) Anemia Code(s): D64.9 - ANEMIA, UNSPECIFIED Qualifiers: Anemia type: unspecified type Qualified Code(s): D64.9 - Anemia, unspecified (12) Atrial fibrillation Code(s): I48.91 - UNSPECIFIED ATRIAL FIBRILLATION Qualifiers: Atrial fibrillation type: permanent Qualified Code(s): I48.2 - Chronic atrial fibrillation (13) Hyperlipidemia Code(s): E78.5 - HYPERLIPIDEMIA, UNSPECIFIED Qualifiers: Hyperlipidemia type: pure hypercholesterolemia Qualified Code(s): E78.00 - Pure hypercholesterolemia, unspecified; E78.0 - Pure hypercholesterolemia (14) Subendocardial ischemia Code(s): I24.8 - OTHER FORMS OF ACUTE ISCHEMIC HEART DISEASE Assessment/Plan 12/31/2018 Echo: Normal LV size and fxn LVEF 60%, mod dilated RV with mild decreased RV fxn, mild-mod AUTUMN, mild MR, mod TR RVSP 31 mmHg 1. Acute Hypoxic Respiratory Failure 2. Acute on chronic diastolic heart failure with pleural effusion post left chest tube drainage 3. CAD post CABG/PCI (stent) evidence of demand ischemia angina pectoris 4. Persistent atrial fibrillation [id number] score of 5 on Coumadin therapy with therapeutic INR 5. Hypertension 6. Hypercholesterolemia 7. MR mild to moderate in severity 8. TR moderate in severity 9. Carotid stenosis, moderate in severity 10. COPD 11. Acute on chronic kidney disease, initiated HD via PC 12. Anemia, thrombocytopenia PLAN: 1. Ideally resume Toprol XL 25 qd, hemodynamics permitting 2. Ideally should be on ACEI or ARBS, pending renal function stabilization or HD initiation, replete K 3. Continue Crestor 5 qhs 4. D/c Heparin gtt, hold coumadin pending right chest tube placement 5. HD via PC per renal service, with monitor urine output, creatinine 6. Titrate HFOT to keep SpO2 >90%, right chest tube drainage planned
--- NOTE | 2019-01-14 13:40 | PN ---
Teaching Attending Note Name of Resident: Venancio Combs ATTENDING PHYSICIAN STATEMENT I saw and evaluated the patient. I reviewed the resident's note and discussed the case with the resident. I agree with the resident's findings and plan as documented. SUBJECTIVE: Pt seen and examined in the ICU. s/p left chest tube placement with drainage of 2.5L. States breathing better today. Remains on HFOT. OBJECTIVE: Vital Signs Period Temp Pulse Resp BP Sys/Ascencio Pulse Ox Last 24 Hr 97 F-98.5 F 45-73 19-29 71-103/42-61 89-98 Intake & Output 01/11/19 01/12/19 01/13/19 01/14/19 23:59 23:59 23:59 23:59 Intake Total 1166 1124 1064 262 Output Total 50 0 2550 80 Balance 1116 1124 -1486 182 Weight 88.995 kg 88.269 kg 85.684 kg Gen: less tachypneic Heart: RRR Lung: decreased breath sounds at the bases Abd: soft, nontender Ext: no edema CBC, BMP 01/14/19 12:35 01/14/19 07:32 INR, PTT INR 2.53 (0.83-1.09) H 01/14/19 12:35 Active Medications Albuterol Sulfate (Ventolin 0.083% Nebulizer Soln -) 1 amp NEB Q4H PRN PRN Reason: SHORT OF BREATH/WHEEZING Last Admin: 01/14/19 08:09 Dose: 1 amp Artificial Tears (Artificial Tears) 1 drop OU TID PRN PRN Reason: DRY EYES Last Admin: 01/12/19 22:35 Dose: 1 drop Chlorhexidine Gluconate (Hibiclens For Decolonization -) 1 applic TP HS JAYCE Last Admin: 01/13/19 22:44 Dose: 1 applic Heparin Sodium (Porcine) (Heparin -) 1,000 unit IVPUSH PRN PRN PRN Reason: Heparin Heparin Sodium (Porcine) (Heparin -) 5,000 unit IVPUSH PRN PRN PRN Reason: Heparin Heparin Sodium/Dextrose (Heparin Infusion -) 25,000 units in 500 mls @ 20 mls/ hr IV TITR JAYCE; Protocol Last Titration: 01/14/19 08:15 Dose: 0 units/hr, 0 mls/hr Sodium Chloride (Normal Saline -) 250 mls @ 3,000 mls/hr IV PRN PRN PRN Reason: Hypotension during Dialysis Stop: 01/13/19 07:40 Iron Sucrose 100 mg/ Sodium (Chloride) 100 mls @ 200 mls/hr IVPB ONCE ONE Stop: 01/12/19 08:15 Mupirocin (Bactroban Ointment (For Decolonization) -) 1 applic NS BID [facility] Stop: 01/15/19 21:59 Last Admin: 01/14/19 12:02 Dose: 1 applic Rosuvastatin Calcium (Crestor -) 5 mg PO HS [facility] Last Admin: 01/13/19 22:44 Dose: 5 mg Warfarin Sodium (Coumadin -) 5 mg PO DAILY@1800 [facility] Last Admin: 01/13/19 18:48 Dose: 5 mg ASSESSMENT AND PLAN: Acute Hypoxic Respiratory Failure Acute on Chronic Diastolic Heart Failure Volume Overload Atrial Fibrillation Acute on Chronic Renal Failure requiring HD COPD Anemia Hypercholesterolemia Thrombocytopenia - HD per renal with ultrafiltration - hold anticoagulation - will place right sided chest tube when coags improve - daily weights - taper HFOT O2 to keep SpO2 >90% - rate control - continue anticoagulation - continue ICU monitoring for tenuous respiratory status critical care time spent reviewing chart, evaluating patient and formulating plan 35 min
--- NOTE | 2019-01-14 14:44 | PN ---
Progress Note, Physician History of Present Illness: Pt seen and examined at bedside. He feels that his breathing is better. He also says he feel tired. He denies chest pain. - Current Medication List Current Medications: Active Medications Albuterol Sulfate (Ventolin 0.083% Nebulizer Soln -) 1 amp NEB Q4H PRN PRN Reason: SHORT OF BREATH/WHEEZING Last Admin: 01/14/19 08:09 Dose: 1 amp Artificial Tears (Artificial Tears) 1 drop OU TID PRN PRN Reason: DRY EYES Last Admin: 01/12/19 22:35 Dose: 1 drop Chlorhexidine Gluconate (Hibiclens For Decolonization -) 1 applic TP HS [facility] Last Admin: 01/13/19 22:44 Dose: 1 applic Heparin Sodium (Porcine) (Heparin -) 1,000 unit IVPUSH PRN PRN PRN Reason: Heparin Heparin Sodium (Porcine) (Heparin -) 5,000 unit IVPUSH PRN PRN PRN Reason: Heparin Heparin Sodium/Dextrose (Heparin Infusion -) 25,000 units in 500 mls @ 20 mls/ hr IV TITR JAYCE; Protocol Last Titration: 01/14/19 08:15 Dose: 0 units/hr, 0 mls/hr Sodium Chloride (Normal Saline -) 250 mls @ 3,000 mls/hr IV PRN PRN PRN Reason: Hypotension during Dialysis Stop: 01/13/19 07:40 Iron Sucrose 100 mg/ Sodium (Chloride) 100 mls @ 200 mls/hr IVPB ONCE ONE Stop: 01/12/19 08:15 Mupirocin (Bactroban Ointment (For Decolonization) -) 1 applic NS BID JAYCE Stop: 01/15/19 21:59 Last Admin: 01/14/19 12:02 Dose: 1 applic Rosuvastatin Calcium (Crestor -) 5 mg PO HS [facility] Last Admin: 01/13/19 22:44 Dose: 5 mg Warfarin Sodium (Coumadin -) 5 mg PO DAILY@1800 [facility] Last Admin: 01/13/19 18:48 Dose: 5 mg - Objective Vital Signs: Vital Signs Temperature 97.9 F 01/14/19 14:00 Pulse Rate 58 L 01/14/19 14:00 Respiratory Rate 17 01/14/19 14:00 Blood Pressure 96/48 L 01/14/19 14:00 O2 Sat by Pulse Oximetry (%) 96 01/14/19 10:00 Constitutional: Yes: Calm Eyes: Yes: Conjunctiva Clear HENT: Yes: Atraumatic Neck: Yes: Supple Cardiovascular: Yes: S1, S2 Respiratory: Yes: On Nasal O2, Other (chest tube) Gastrointestinal: Yes: Soft Genitourinary: Yes: Incontinence Musculoskeletal: Yes: Muscle Weakness Edema: Yes Edema: LLE: 1+, RLE: 1+ Neurological: Yes: Oriented Psychiatric: Yes: Oriented Labs: CBC, BMP 01/14/19 12:35 01/14/19 07:32 INR, PTT INR 2.53 (0.83-1.09) H 01/14/19 12:35 - ....Imaging Chest X-ray: Report Reviewed Problem List - Problems (1) [id number] kidney injury Code(s): N17.9 - ACUTE KIDNEY FAILURE, UNSPECIFIED; N18.9 - CHRONIC KIDNEY DISEASE, UNSPECIFIED Qualifiers: Acute renal failure type: unspecified Chronic kidney disease stage: unspecified stage Qualified Code(s): N17.9 - Acute kidney failure, unspecified ; N18.9 - Chronic kidney disease, unspecified (2) Congestive heart failure Code(s): I50.9 - HEART FAILURE, UNSPECIFIED Qualifiers: Heart failure type: unspecified Heart failure chronicity: acute on chronic Qualified Code(s): I50.9 - Heart failure, unspecified Assessment/Plan Current Medications Generic Name Dose Route Start Last Admin Trade Name Freq PRN Reason Stop Dose Admin Albuterol Sulfate 1 amp 01/11/19 15:06 01/14/19 08:09 Ventolin 0.083% Nebulizer Soln - NEB 1 amp Q4H PRN Administration SHORT OF BREATH/WHEEZING Artificial Tears 1 drop 01/11/19 15:06 01/12/19 22:35 Artificial Tears OU 1 drop TID PRN Administration DRY EYES Chlorhexidine Gluconate 1 applic 01/10/19 22:00 01/13/19 22:44 Hibiclens For Decolonization - TP 1 applic HS JAYCE Administration Heparin Sodium (Porcine) 1,000 unit 01/11/19 15:06 Heparin - IVPUSH PRN PRN Heparin Heparin Sodium (Porcine) 5,000 unit 01/11/19 15:06 Heparin - IVPUSH PRN PRN Heparin Heparin Sodium/Dextrose 25,000 units in 500 mls @ 20 mls/hr 01/11/19 15:06 08:15 Heparin Infusion - IV 0 units/hr TITR JAYCE 0 mls/hr Titration Protocol 1,000 UNITS/HR Sodium Chloride 250 mls @ 3,000 mls/hr 01/12/19 07:40 Normal Saline - IV 01/13/19 07:40 PRN PRN Hypotension during Dialysis Iron Sucrose 100 mg/ Sodium 100 mls @ 200 mls/hr 01/12/19 07:46 Chloride IVPB 01/12/19 08:15 ONCE ONE Mupirocin 1 applic 01/10/19 22:00 01/14/19 12:02 Bactroban Ointment (For Decolonization) - NS 01/15/19 21:59 1 applic BID JAYCE Administration Rosuvastatin Calcium 5 mg 01/11/19 22:00 01/13/19 22:44 Crestor - PO 5 mg HS JAYCE Administration Warfarin Sodium 5 mg 01/11/19 18:00 01/13/19 18:48 Coumadin - PO 5 mg DAILY@1800 JAYCE Administration Impression 1. ANGELA 2. CKD 3. CHF 4. hypotension 5. resp failure requiring bipap 6. a-fib 7. hld 8. bilateral pleural effusions 9. anemia 10. hypokalemia Plan - discussed with pulmonary, possible HD tomorrow depending on how much volume is drained from pleural effusion. Will wait until pleurocentesis is done then decide on HD - renal diet - cont oxygen and monitor pulse ox - get another am cxr tomorrow - pt likely has ATN - avoid nsaids - prognosis guarded
[2019-01-14] MEDS: HEPARIN INFUSION - 25,000 UNITS/500 ML INFUS.BAG IV SCH (16:03)
--- NOTE | 2019-01-14 16:59 | PN ---
Physical Exam: SUBJECTIVE: Patient seen and examined s/p left chest tube placement with drainage of 2.5L. States breathing better today. Remains on HFOT. OBJECTIVE: Vital Signs Period Temp Pulse Resp BP Sys/Ascencio Pulse Ox Last 24 Hr 97 F-98.5 F 45-73 17-29 86-103/42-61 89-97 GENERAL: The patient is awake, alert, and fully oriented, in no acute distress. HEAD: Normal with no signs of trauma. EYES: PERRL, extraocular movements intact, sclera anicteric, conjunctiva clear. No ptosis. ENT: Ears normal, nares patent, oropharynx clear without exudates, moist mucous membranes. NECK: Trachea midline, full range of motion, supple. LUNGS: Breath sounds equal, clear to auscultation bilaterally, no wheezes, no crackles, no accessory muscle use. HEART: Regular rate and rhythm, S1, S2 without murmur, rub or gallop. ABDOMEN: Soft, nontender, nondistended, normoactive bowel sounds, no guarding, no rebound, no hepatosplenomegaly, no masses. EXTREMITIES: 2+ pulses, warm, well-perfused, no edema. NEUROLOGICAL: Cranial nerves II through XII grossly intact. Normal speech, gait not observed. PSYCH: Normal mood, normal affect. SKIN: Warm, dry, normal turgor, no rashes or lesions noted Laboratory Results - last 24 hr 01/13/19 01/13/19 01/14/19 05:30 15:00 00:00 WBC RBC Hgb Hct MCV MCH MCHC RDW Plt Count MPV Absolute Neuts (auto) Neutrophils % Lymphocytes % Monocytes % Eosinophils % Basophils % Nucleated RBC % PT with INR INR PTT (Actin FS) 62.5 H Sodium 138 Potassium 3.4 L Chloride 102 Carbon Dioxide 25 Anion Gap 11 BUN 52 H Creatinine 5.1 H Creat Clearance w eGFR 10.73 Random Glucose 95 Calcium 8.0 L Phosphorus 5.2 H Magnesium 2.1 Total Bilirubin 0.4 AST 29 ALT 11 L Alkaline Phosphatase 75 LD Total 244 Total Protein 6.0 L Albumin 2.7 L Cholesterol 73 Fluid Source Pleural Fluid WBC 294 Fluid RBC 2330 Fluid Neutrophils 13 Fluid Lymphocytes 49 Pleural Monocytes 7 Pleural Macrophages 21 Pleural Mesothelial 10 01/14/19 01/14/19 01/14/19 05:30 07:32 12:35 WBC 4.5 RBC 2.69 L Hgb 8.5 L Hct 26.0 L MCV 96.5 H MCH 31.6 MCHC 32.8 RDW 16.1 H Plt Count 53 L D MPV 8.0 Absolute Neuts (auto) Neutrophils % Lymphocytes % Monocytes % Eosinophils % Basophils % Nucleated RBC % PT with INR 30.10 H INR 2.53 H PTT (Actin FS) Sodium 141 Potassium 3.2 L Chloride 105 Carbon Dioxide 28 Anion Gap 8 BUN 35 H Creatinine 3.8 H Creat Clearance w eGFR 15.07 Random Glucose 93 Calcium 8.2 L Phosphorus 4.1 Magnesium 2.2 Total Bilirubin AST ALT Alkaline Phosphatase LD Total Total Protein Albumin Cholesterol Fluid Source Fluid WBC Fluid RBC Fluid Neutrophils Fluid Lymphocytes Pleural Monocytes Pleural Macrophages Pleural Mesothelial 01/14/19 12:35 WBC 4.8 RBC 2.70 L Hgb 8.7 L Hct 26.3 L MCV 97.3 H MCH 32.2 MCHC 33.1 RDW 16.6 H Plt Count 59 L MPV 8.6 Absolute Neuts (auto) 3.4 Neutrophils % 71.3 Lymphocytes % 10.1 D Monocytes % 14.2 H Eosinophils % 2.9 Basophils % 1.5 Nucleated RBC % 0 PT with INR INR PTT (Actin FS) Sodium Potassium Chloride Carbon Dioxide Anion Gap BUN Creatinine Creat Clearance w eGFR Random Glucose Calcium Phosphorus Magnesium Total Bilirubin AST ALT Alkaline Phosphatase LD Total Total Protein Albumin Cholesterol Fluid Source Fluid WBC Fluid RBC Fluid Neutrophils Fluid Lymphocytes Pleural Monocytes Pleural Macrophages Pleural Mesothelial Active Medications Generic Name Dose Route Start Last Admin Trade Name Freq PRN Reason Stop Dose Admin Albuterol Sulfate 1 amp 01/11/19 15:06 01/14/19 08:09 Ventolin 0.083% Nebulizer Soln - NEB 1 amp Q4H PRN Administration SHORT OF BREATH/WHEEZING Artificial Tears 1 drop 01/11/19 15:06 01/12/19 22:35 Artificial Tears OU 1 drop TID PRN Administration DRY EYES Chlorhexidine Gluconate 1 applic 01/10/19 22:00 01/13/19 22:44 Hibiclens For Decolonization - TP 1 applic HS JAYCE Administration Heparin Sodium (Porcine) 1,000 unit 01/11/19 15:06 Heparin - IVPUSH PRN PRN Heparin Heparin Sodium (Porcine) 5,000 unit 01/11/19 15:06 Heparin - IVPUSH PRN PRN Heparin Heparin Sodium/Dextrose 25,000 units in 500 mls @ 20 mls/hr 01/11/19 15:06 16:03 Heparin Infusion - IV Not Given TITR JAYCE Protocol 1,000 UNITS/HR Sodium Chloride 250 mls @ 3,000 mls/hr 01/12/19 07:40 Normal Saline - IV 01/13/19 07:40 PRN PRN Hypotension during Dialysis Iron Sucrose 100 mg/ Sodium 100 mls @ 200 mls/hr 01/12/19 07:46 Chloride IVPB 01/12/19 08:15 ONCE ONE Mupirocin 1 applic 01/10/19 22:00 01/14/19 12:02 Bactroban Ointment (For Decolonization) - NS 01/15/19 21:59 1 applic BID JAYCE Administration Rosuvastatin Calcium 5 mg 01/11/19 22:00 01/13/19 22:44 Crestor - PO 5 mg HS JAYCE Administration Warfarin Sodium 5 mg 01/11/19 18:00 01/13/19 18:48 Coumadin - PO 5 mg DAILY@1800 JAYCE Administration ASSESSMENT/PLAN: This is a 88 year old male with a history of CAD s/p CABG, s/p PCI/LUIS EDUARDO , persistent atrial fibrillation, diastolic congestive heart failure, HTN, carotid stenosis who presented with worsening SON, orthopnea, b/l leg edema, found to be in acute heart failure. #Acute on chronic diastolic heart failure -s/p chest tube; f/u fluid analysis -daily weights, strict I/Os; christina in place -cardio , renal -HD; lasix drip #Acute hypoxic respiratory failure - sec to vol overload; on high flow; s/p chest tube #Atrial fibrillation -rate controlled -heparin GGT; on hold; s/p chest tube placement #Acute on chronic kidney disease; permacath -HD s -cardio; renal vs sec to hypotension; -urine lytes -stirct i/os -ua, uc #Macrocytic Anemia; monitor for acute bleed; stable -stool for acute blood negative -s/p 1UPRBC -vit b12, foalte wnl; iron studies low; would consult heme for flow cytometrey , fish, cytogenetics #thrombocytopenia: platelets 80s; now in 50s; HOLD AC -congestive changes vs reactive vs HIT?; ; ITP? liver dz? -abdominal US +hepatomegaly; #hypokalemia; -replace #hyperphosphetema; sec renal failure -hd; phos lo #UTI: -completed antibiotics course #COPD -; cont IH bronchodilators #HTN -hold home meds; #HLD -statin Dispo: ICU monitoring Visit type - Emergency Visit Emergency Visit: Yes ED Registration Date: 12/30/18 Care time: The patient presented to the Emergency Department on the above date and was hospitalized for further evaluation of their emergent condition. - New Patient This patient is new to me today: No - Critical Care Critical Care patient: Yes Total Critical Care Time (in minutes): 45 Critical Care Statement: The care of this patient involved high complexity decision making to prevent further life threatening deterioration of the patient 's condition and/or to evaluate & treat vital organ system(s) failure or risk of failure.
--- NOTE | 2019-01-14 17:56 | CONSULT ---
Consultation: HEMATOLOGY/ONCOLOGY CONSULT REQUEST: We have been asked to medically evaluate this patient for thrombocytopenia HISTORY OF PRESENT ILLNESS: 88 year old male with a history of CHF with preserved EF, HTN, HLD, COPD, CKD, A fib on coumadin, CAD s/p CABG and PCI presented to the hospital initially for shortness of breath on exertion that progressed to SOB at rest. He has had a long ICU stay for CHF exacerbation complicated by pleural effusions and needing chest tube placement. Hematology has been consulted for evaluation of progressive thrombocytopenia. Patient reports that he currently feels well, not SOB or having any chest pain. Denies any history of bleeding or easy bruising. Denies anyone in family having any bleeding or bruising conditions. Has never been told he had low platelets, but knew about his anemia. 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 Hip replacement, hemicolectomy for bowel perforation, CABG(2-vessel disease), ORIF of RFA, Left collar bone fracture Smoking: Former, Quit 30 years ago Alcohol: Denies Drugs: Denies Family history: brother several years ago from cancer of unknown origin, no other family members have had bleeding or bruising diagnoses REVIEW OF SYSTEMS: CONSTITUTIONAL: Absent: fever, chills, diaphoresis, generalized weakness, malaise, loss of appetite, weight change HEENT: Absent: rhinorrhea, nasal congestion, throat pain, throat swelling, difficulty swallowing, mouth swelling, ear pain, eye pain, visual changes CARDIOVASCULAR: Absent: chest pain, syncope, palpitations, irregular heart rate, lightheadedness , peripheral edema RESPIRATORY: Absent: cough, shortness of breath, dyspnea with exertion, orthopnea, wheezing, stridor, hemoptysis GASTROINTESTINAL: Absent: abdominal pain, abdominal distension, nausea, vomiting, diarrhea, constipation, melena, hematochezia GENITOURINARY: Absent: dysuria, frequency, urgency, hesitancy, hematuria, flank pain, genital pain MUSCULOSKELETAL: Absent: myalgia, arthralgia, joint swelling, back pain, neck pain SKIN: Absent: rash, itching, pallor HEMATOLOGIC/IMMUNOLOGIC: Absent: easy bleeding, easy bruising, lymphadenopathy, frequent infections ENDOCRINE: Absent: unexplained weight gain, unexplained weight loss, heat intolerance, cold intolerance NEUROLOGIC: Absent: headache, focal weakness or paresthesias, dizziness, unsteady gait, seizure, mental status changes, bladder or bowel incontinence PSYCHIATRIC: Absent: anxiety, depression, suicidal or homicidal ideation, hallucinations. PHYSICAL EXAMINATION Vital Signs - 24 hr 01/13/19 01/13/19 01/13/19 18:00 20:00 21:00 Temperature Pulse Rate 65 55 L Respiratory 28 H 29 H Rate Blood Pressure 96/50 L O2 Sat by Pulse 95 89 L 90 L Oximetry (%) 01/13/19 01/14/19 01/14/19 22:00 00:00 02:00 Temperature 97 F L 97.6 F Pulse Rate 57 L 71 55 L Respiratory 27 H 29 H 26 H Rate Blood Pressure 94/56 L 95/44 L 91/56 L O2 Sat by Pulse 95 95 96 Oximetry (%) 01/14/19 01/14/19 01/14/19 04:00 06:00 08:00 Temperature 97.2 F L Pulse Rate 73 45 L 57 L Respiratory 25 H 24 H 19 Rate Blood Pressure 88/50 L 91/45 L 103/59 L O2 Sat by Pulse 94 L 90 L 95 Oximetry (%) 01/14/19 01/14/19 01/14/19 08:44 10:00 12:00 Temperature 98.5 F Pulse Rate 68 56 L 58 L Respiratory 20 23 H Rate Blood Pressure 98/47 L 86/61 L O2 Sat by Pulse 97 96 96 Oximetry (%) 01/14/19 01/14/19 14:00 16:04 Temperature 97.9 F Pulse Rate 58 L 69 Respiratory 17 20 Rate Blood Pressure 96/48 L 99/43 L O2 Sat by Pulse Oximetry (%) GENERAL: A&Ox3, no acute distress EYES: PERRLA, EOMI ENT: Moist mucus membranes, Oropharynx clear without any exudates or blood NECK: No JVD, no lymphadenopathy palpated on exam LUNGS: overall clear, possible mild wheezes on expiration and rhales at bases ( mild), L sided chest tube in place BREAST: no nodules or masses noted on exam HEART: RRR, no murmurs auscultated, R sided central catheter in place ABDOMEN: distended but soft, bowel sounds present, tympanitic to percussion, large, well healed vertical abdominal incision noted EXTREMITIES: 2+ pulses, no edema noted, no peripheral ischemia or thrombosis identified, no petechiae noted NEUROLOGICAL: Cranial nerves II-XII intact. No sensory or motor deficits. Laboratory Results - last 24 hr 01/13/19 01/13/19 01/14/19 05:30 15:00 00:00 WBC RBC Hgb Hct MCV MCH MCHC RDW Plt Count MPV Absolute Neuts (auto) Neutrophils % Lymphocytes % Monocytes % Eosinophils % Basophils % Nucleated RBC % PT with INR INR PTT (Actin FS) 62.5 H Sodium 138 Potassium 3.4 L Chloride 102 Carbon Dioxide 25 Anion Gap 11 BUN 52 H Creatinine 5.1 H Creat Clearance w eGFR 10.73 Random Glucose 95 Calcium 8.0 L Phosphorus 5.2 H Magnesium 2.1 Total Bilirubin 0.4 AST 29 ALT 11 L Alkaline Phosphatase 75 LD Total 244 Total Protein 6.0 L Albumin 2.7 L Cholesterol 73 Fluid Neutrophils 13 Fluid Lymphocytes 49 Pleural Monocytes 7 Pleural Macrophages 21 Pleural Mesothelial 10 01/14/19 01/14/19 01/14/19 05:30 07:32 12:35 WBC 4.5 RBC 2.69 L Hgb 8.5 L Hct 26.0 L MCV 96.5 H MCH 31.6 MCHC 32.8 RDW 16.1 H Plt Count 53 L D MPV 8.0 Absolute Neuts (auto) Neutrophils % Lymphocytes % Monocytes % Eosinophils % Basophils % Nucleated RBC % PT with INR 30.10 H INR 2.53 H PTT (Actin FS) Sodium 141 Potassium 3.2 L Chloride 105 Carbon Dioxide 28 Anion Gap 8 BUN 35 H Creatinine 3.8 H Creat Clearance w eGFR 15.07 Random Glucose 93 Calcium 8.2 L Phosphorus 4.1 Magnesium 2.2 Total Bilirubin AST ALT Alkaline Phosphatase LD Total Total Protein Albumin Cholesterol Fluid Neutrophils Fluid Lymphocytes Pleural Monocytes Pleural Macrophages Pleural Mesothelial 01/14/19 12:35 WBC 4.8 RBC 2.70 L Hgb 8.7 L Hct 26.3 L MCV 97.3 H MCH 32.2 MCHC 33.1 RDW 16.6 H Plt Count 59 L MPV 8.6 Absolute Neuts (auto) 3.4 Neutrophils % 71.3 Lymphocytes % 10.1 D Monocytes % 14.2 H Eosinophils % 2.9 Basophils % 1.5 Nucleated RBC % 0 PT with INR INR PTT (Actin FS) Sodium Potassium Chloride Carbon Dioxide Anion Gap BUN Creatinine Creat Clearance w eGFR Random Glucose Calcium Phosphorus Magnesium Total Bilirubin AST ALT Alkaline Phosphatase LD Total Total Protein Albumin Cholesterol Fluid Neutrophils Fluid Lymphocytes Pleural Monocytes Pleural Macrophages Pleural Mesothelial Active Medications Generic Name Dose Route Start Last Admin Trade Name Freq PRN Reason Stop Dose Admin Albuterol Sulfate 1 amp 01/11/19 15:06 01/14/19 08:09 Ventolin 0.083% Nebulizer Soln - NEB 1 amp Q4H PRN Administration SHORT OF BREATH/WHEEZING Artificial Tears 1 drop 01/11/19 15:06 01/12/19 22:35 Artificial Tears OU 1 drop TID PRN Administration DRY EYES Chlorhexidine Gluconate 1 applic 01/10/19 22:00 01/13/19 22:44 Hibiclens For Decolonization - TP 1 applic HS JAYCE Administration Heparin Sodium (Porcine) 1,000 unit 01/11/19 15:06 Heparin - IVPUSH PRN PRN Heparin Heparin Sodium (Porcine) 5,000 unit 01/11/19 15:06 Heparin - IVPUSH PRN PRN Heparin Heparin Sodium/Dextrose 25,000 units in 500 mls @ 20 mls/hr 01/11/19 15:06 16:03 Heparin Infusion - IV Not Given TITR JAYCE Protocol 1,000 UNITS/HR Sodium Chloride 250 mls @ 3,000 mls/hr 01/12/19 07:40 Normal Saline - IV 01/13/19 07:40 PRN PRN Hypotension during Dialysis Iron Sucrose 100 mg/ Sodium 100 mls @ 200 mls/hr 01/12/19 07:46 Chloride IVPB 01/12/19 08:15 ONCE ONE Mupirocin 1 applic 01/10/19 22:00 01/14/19 12:02 Bactroban Ointment (For Decolonization) - NS 01/15/19 21:59 1 applic BID JAYCE Administration Rosuvastatin Calcium 5 mg 01/11/19 22:00 01/13/19 22:44 Crestor - PO 5 mg HS JAYCE Administration Warfarin Sodium 5 mg 01/11/19 18:00 01/13/19 18:48 Coumadin - PO 5 mg DAILY@1800 JAYCE Administration ASSESSMENT/PLAN: 88 year old male with a history of CHF with preserved EF, HTN, HLD, COPD, CKD, A fib on coumadin, CAD s/p CABG and PCI presented to the hospital initially for shortness of breath on exertion that progressed to SOB at rest and admitted for Tx of CHF exacerbation #Thrombocytopenia: possibly secondary to heparin induced thrombocytopenia vs congestive hypersplenism; patient's platelets have been dropping since day 5 of admission, however he seems to have been started on a heparin drip since 01/11. He does not appear to have any thromboses to suggest HIT type II, but platelet factor antibodies should be evaluated -hold heparin -order HIT antibodies -order abdominal ultrasound to assess for hypersplenism secondary to congestive heart failure -monitor platelet count in AM -warfarin held for possible R sided chest tube in AM #Anemia Mono Pete, PGY2 Will Discuss with Dr. Kulwinder Villegas: We will continue to follow the patient. Thank you for this consultative opportunity. Visit type - Emergency Visit Emergency Visit: No - New Patient This patient is new to me today: Yes Date on this admission: 01/15/19 - Critical Care Critical Care patient: Yes Total Critical Care Time (in minutes): 38 Critical Care Statement: The care of this patient involved high complexity decision making to prevent further life threatening deterioration of the patient 's condition and/or to evaluate & treat vital organ system(s) failure or risk of failure.
[2019-01-14] MEDS: CHLORHEXIDINE GLUCONATE 4% CLEANSER FOR DECOLONIZATION TP SCH (21:52)
[2019-01-14] MEDS: ROSUVASTATIN CA 5 MG TABLET (FP) PO SCH (22:03)
[2019-01-15 06:38] LABS: EOS % 3.9 % (0-4.5); HEMOGLOBIN 7.9 GM/dL (11.7-16.9); LYMPH % 11.9 % (8-40); MCH 31.9 pg (25.7-33.7); MEAN CELL VOLUME 96.5 fl (80-96); MEAN PLT VOLUME 9.2 fl (7.5-11.1); MONO % 9.8 % (3.8-10.2); NEUT % 73.4 % (42.8-82.8); PLATELET COUNT 75 K/MM3 (134-434); RBC 2.49 M/mm3 (4.00-5.60)
[2019-01-15 06:50] LABS: INR 2.51 (0.83-1.09); PROTHROMBIN TIME (PATIENT) 29.9 SEC (9.7-13.0)
[2019-01-15 07:09] LABS: ANION GAP 8 MMOL/L (8-16); BLOOD UREA NITROGEN 46 mg/dL (7-18); CALCIUM 8.3 mg/dL (8.5-10.1); CHLORIDE 104 mmol/L (98-107); CO2 29 mmol/L (21-32); CREATININE 4.6 mg/dL (0.55-1.3); GLUCOSE,RANDOM 87 mg/dL (74-106); PHOSPHOROUS 4.9 mg/dL (2.5-4.9); POTASSIUM 3.2 mmol/L (3.5-5.1); SODIUM 140 mmol/L (136-145)
--- NOTE | 2019-01-15 07:59 | PN ---
Physical Exam: SUBJECTIVE: Patient seen and examined this AM. He states he is doing well this morning and is reading the paper comfortably. He endorses some difficulty sleeping last night. OBJECTIVE: Vital Signs Period Temp Pulse Resp BP Sys/Ascencio Pulse Ox Last 24 Hr 97.9 F-98.5 F 45-70 17-31 82-127/43-61 95-100 GEN: A&O, no acute distress HEENT: PERRL, moist mucus membranes NECK: Supple, no lymphadenopathy HEART: RRR, no murmurs noted LUNGS: diffuse rhonchi improving, decreased breath sounds on the right, left chest tube in place ABDOMEN: Soft, nontender, normoactive bowel sounds EXTREMITIES: no edema seen in b/l LE, no calf tenderness noted Laboratory Results - last 24 hr 01/14/19 01/14/19 01/14/19 07:32 12:35 12:35 WBC 4.8 RBC 2.70 L Hgb 8.7 L Hct 26.3 L MCV 97.3 H MCH 32.2 MCHC 33.1 RDW 16.6 H Plt Count 59 L MPV 8.6 Absolute Neuts (auto) 3.4 Neutrophils % 71.3 Lymphocytes % 10.1 D Monocytes % 14.2 H Eosinophils % 2.9 Basophils % 1.5 Nucleated RBC % 0 PT with INR 30.10 H INR 2.53 H Sodium 141 Potassium 3.2 L Chloride 105 Carbon Dioxide 28 Anion Gap 8 BUN 35 H Creatinine 3.8 H Creat Clearance w eGFR 15.07 Random Glucose 93 Calcium 8.2 L Phosphorus 4.1 Magnesium 2.2 01/15/19 01/15/19 01/15/19 05:30 05:30 05:30 WBC 5.0 RBC 2.49 L Hgb 7.9 L Hct 24.0 L MCV 96.5 H MCH 31.9 MCHC 33.0 RDW 16.0 H Plt Count 75 L D MPV 9.2 Absolute Neuts (auto) 3.6 Neutrophils % 73.4 Lymphocytes % 11.9 Monocytes % 9.8 Eosinophils % 3.9 Basophils % 1.0 Nucleated RBC % 0 PT with INR 29.90 H INR 2.51 H Sodium 140 Potassium 3.2 L Chloride 104 Carbon Dioxide 29 Anion Gap 8 BUN 46 H Creatinine 4.6 H Creat Clearance w eGFR 12.09 Random Glucose 87 Calcium 8.3 L Phosphorus 4.9 Magnesium 2.0 Active Medications Generic Name Dose Route Start Last Admin Trade Name Freq PRN Reason Stop Dose Admin Albuterol Sulfate 1 amp 01/11/19 15:06 01/14/19 08:09 Ventolin 0.083% Nebulizer Soln - NEB 1 amp Q4H PRN Administration SHORT OF BREATH/WHEEZING Artificial Tears 1 drop 01/11/19 15:06 01/12/19 22:35 Artificial Tears OU 1 drop TID PRN Administration DRY EYES Chlorhexidine Gluconate 1 applic 01/10/19 22:00 01/14/19 21:52 Hibiclens For Decolonization - TP 1 applic HS JAYCE Administration Heparin Sodium (Porcine) 1,000 unit 01/11/19 15:06 Heparin - IVPUSH PRN PRN Heparin Heparin Sodium (Porcine) 5,000 unit 01/11/19 15:06 Heparin - IVPUSH PRN PRN Heparin Heparin Sodium/Dextrose 25,000 units in 500 mls @ 20 mls/hr 01/11/19 15:06 16:03 Heparin Infusion - IV Not Given TITR [facility] Protocol 1,000 UNITS/HR Sodium Chloride 250 mls @ 3,000 mls/hr 01/12/19 07:40 Normal Saline - IV 01/13/19 07:40 PRN PRN Hypotension during Dialysis Iron Sucrose 100 mg/ Sodium 100 mls @ 200 mls/hr 01/12/19 07:46 Chloride IVPB 01/12/19 08:15 ONCE ONE Mupirocin 1 applic 01/10/19 22:00 01/14/19 21:51 Bactroban Ointment (For Decolonization) - NS 01/15/19 21:59 1 applic BID JAYCE Administration Rosuvastatin Calcium 5 mg 01/11/19 22:00 01/14/19 22:03 Crestor - PO 5 mg HS JAYCE Administration Warfarin Sodium 5 mg 01/11/19 18:00 01/13/19 18:48 Coumadin - PO 5 mg DAILY@1800 JAYCE Administration ASSESSMENT/PLAN: Patient is an 88 year old male who presented for worsening shortness of breath and was found to have CHF exacerbation with hypotension. Patient admitted to ICU for further monitoring and management. NEURO -Awake, Alert and oriented -On no sedation PULMONARY #Acute Hypoxic Respiratory Failure -Likely ATN without recovery of renal function and inadequate diuresis -Requiring High Flow O2 for pressure support and respiratory status, attempt to wean as able -Did not respond to lasix IV or drip, requiring HD for fluid removal at this time -Renal and bladder US without any signs of obstruction -Strict I&O's -Daily weights -Cardiology consult appreciated -Still with effusion on CXR SOB and tachypnea on HF, Left chest tube 01/13, 2970 cc output total, 470 cc output in last 24 hours -Will likely require right chest tube placement as well tomorrow #COPD -No acute exacerbation -Albuterol nebulizer PRN -Maintain 02 Saturation >90% CARDIOLOGY #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 -Likely Cardio-Renal Syndrome -Repeat ECHO with normal EF, dilated RV and RA -Off pressors -Low sodium -Lester placed for strict I&O's -Daily weights -Hold B-mukesh until more hemodynamically stable #Permanent atrial fibrillation -[id number] -Warfarin, monitor INR #CAD s/p CABG -s/p PCI/LUIS EDUARDO to LAD -Continue Rosuvastatin, ASA and BB as hemodynamically tolerates -Maintain Hgb > 8 #HTN -Hold anti-htn medications as patient remains hypotensive #HLD -Continue home Crestor NEPHROLOGY #ANGELA on CKD -Likely ATN -Baseline around 1.5 -Kidney/Bladder U/S without signs of obstruction -Avoid nephrotoxic medications -Renally dose medications -Will hold CAROLYN/ARB for now -Nephrology consult appreciated -Monitor BMP -Requiring dialysis and chest tube for volume removal -Permacath placed 01/10 INFECTIOUS DISEASE #UTI - Resolved -Completed course of Rocephin -Urine culture grew Enterococcus HEMATOLOGY #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 -Repeat US pending official read to evaluate for splenic congestion, normal splenic size on 01/08 -HIT Ab pending F/E/N -None -Monitor and correct as needed with likely with dialysis -Sodium controlled diet Prophylaxis -Heparin drip held for low platelets, warfarin held for chest tube placement -No GI required LINES -Permacath placed 01/10 -Left chest tube placed 01/13 -Likely right chest tube placement tomorrow Disposition -Full code -Monitor in ICU on High Flow O2 Visit type - Emergency Visit Emergency Visit: Yes ED Registration Date: 12/30/18 Care time: The patient presented to the Emergency Department on the above date and was hospitalized for further evaluation of their emergent condition. - New Patient This patient is new to me today: No - Critical Care Critical Care patient: Yes Total Critical Care Time (in minutes): 39 Critical Care Statement: The care of this patient involved high complexity decision making to prevent further life threatening deterioration of the patient 's condition and/or to evaluate & treat vital organ system(s) failure or risk of failure.
--- NOTE | 2019-01-15 08:40 | PN ---
Teaching Attending Note Name of Resident: Ernestina Hodges ATTENDING PHYSICIAN STATEMENT I saw and evaluated the patient. I reviewed the resident's note and discussed the case with the resident. I agree with the resident's findings and plan as documented. SUBJECTIVE: Mr Aleman says he is feeling good today. Denies cp, sob, n/v. No pain at chest tube site OBJECTIVE: Last Vital Signs Temp Pulse Resp BP Pulse Ox 36.6 C 58 L 24 H 111/48 L 97 01/15/19 06:00 01/15/19 06:00 01/15/19 06:00 01/15/19 06:00 01/15/19 06:00 Gen: nad Pulm: L sided chest tube, ronchi in right base CV: rrr w/o m/r/g Abd: +bs, s/nt/nd Ext: 1+ pitting edema CBC, BMP 01/15/19 05:30 01/15/19 05:30 ASSESSMENT AND PLAN: (1) Acute on chronic diastolic (congestive) heart failure Assessment/Plan: -still requiring high flow oxygen but decreasing -HD per nephrology -chest tube in place Code(s): I50.33 - ACUTE ON CHRONIC DIASTOLIC (CONGESTIVE) HEART FAILURE (2) Fgwjf-qe-swbrqje kidney injury Assessment/Plan: -continue HD Code(s): N17.9 - ACUTE KIDNEY FAILURE, UNSPECIFIED; N18.9 - CHRONIC KIDNEY DISEASE, UNSPECIFIED Qualifiers: Acute renal failure type: unspecified Chronic kidney disease stage: unspecified stage Qualified Code(s): N17.9 - Acute kidney failure, unspecified ; N18.9 - Chronic kidney disease, unspecified (3) Pleural effusion Assessment/Plan: -chest tube in place -planning for right sided chest tube today -breathing much improved with placement of chest tube Code(s): T45.511A - POISONING BY ANTICOAGULANTS, ACCIDENTAL, INIT (4) CAD (coronary artery disease) Assessment/Plan: -quiescent -cardiology following Code(s): I25.10 - ATHSCL HEART DISEASE OF [place] CORONARY ARTERY W/O ANG PCTRS Qualifiers: Coronary Disease-Associated Artery/Lesion type: [place] artery [place] vs. transplanted heart: [place] heart Associated angina: without angina Qualified Code(s): I25.10 - Atherosclerotic heart disease of [place] coronary artery without angina pectoris (5) COPD (chronic obstructive pulmonary disease) Assessment/Plan: -not in exacerbation -pulmonary following Code(s): J44.9 - CHRONIC OBSTRUCTIVE PULMONARY DISEASE, UNSPECIFIED Qualifiers: COPD type: unspecified COPD Qualified Code(s): J44.9 - Chronic obstructive pulmonary disease, unspecified (6) Chronic anemia Assessment/Plan: -stable Code(s): D64.9 - ANEMIA, UNSPECIFIED (7) HTN (hypertension) Assessment/Plan: -well controlled Code(s): I10 - ESSENTIAL (PRIMARY) HYPERTENSION Qualifiers: Hypertension type: essential hypertension Qualified Code(s): I10 - Essential (primary) hypertension (8) Pulmonary hypertension Assessment/Plan: -noted Code(s): I27.2 - OTHER SECONDARY PULMONARY HYPERTENSION * DO NOT USE * (9) Atrial fibrillation Assessment/Plan: -controlled -heparin gtt Code(s): I48.91 - UNSPECIFIED ATRIAL FIBRILLATION Qualifiers: Atrial fibrillation type: permanent Qualified Code(s): I48.2 - Chronic atrial fibrillation (10) Hyperlipidemia Assessment/Plan: -crestor Code(s): E78.5 - HYPERLIPIDEMIA, UNSPECIFIED Qualifiers: Hyperlipidemia type: pure hypercholesterolemia Qualified Code(s): E78.00 - Pure hypercholesterolemia, unspecified; E78.0 - Pure hypercholesterolemia (11) Acute on chronic hypoxic respiratory failure -continue diuresis with HD per nephrology -planning for second chest tube -wean oxygen as tolerated Problem List - Problems (1) Acute on chronic diastolic (congestive) heart failure Code(s): I50.33 - ACUTE ON CHRONIC DIASTOLIC (CONGESTIVE) HEART FAILURE (2) Tfxww-nq-vywozls kidney injury Code(s): N17.9 - ACUTE KIDNEY FAILURE, UNSPECIFIED; N18.9 - CHRONIC KIDNEY DISEASE, UNSPECIFIED Qualifiers: Acute renal failure type: unspecified Chronic kidney disease stage: unspecified stage Qualified Code(s): N17.9 - Acute kidney failure, unspecified ; N18.9 - Chronic kidney disease, unspecified (3) Warfarin toxicity Code(s): T45.511A - POISONING BY ANTICOAGULANTS, ACCIDENTAL, INIT (4) CAD (coronary artery disease) Code(s): I25.10 - ATHSCL HEART DISEASE OF [place] CORONARY ARTERY W/O ANG PCTRS Qualifiers: Coronary Disease-Associated Artery/Lesion type: [place] artery [place] vs. transplanted heart: [place] heart Associated angina: without angina Qualified Code(s): I25.10 - Atherosclerotic heart disease of [place] coronary artery without angina pectoris (5) COPD (chronic obstructive pulmonary disease) Code(s): J44.9 - CHRONIC OBSTRUCTIVE PULMONARY DISEASE, UNSPECIFIED Qualifiers: COPD type: unspecified COPD Qualified Code(s): J44.9 - Chronic obstructive pulmonary disease, unspecified (6) Chronic anemia Code(s): D64.9 - ANEMIA, UNSPECIFIED (7) HTN (hypertension) Code(s): I10 - ESSENTIAL (PRIMARY) HYPERTENSION Qualifiers: Hypertension type: essential hypertension Qualified Code(s): I10 - Essential (primary) hypertension (8) Pulmonary hypertension Code(s): I27.2 - OTHER SECONDARY PULMONARY HYPERTENSION * DO NOT USE * (9) Atrial fibrillation Code(s): I48.91 - UNSPECIFIED ATRIAL FIBRILLATION Qualifiers: Atrial fibrillation type: permanent Qualified Code(s): I48.2 - Chronic atrial fibrillation (10) Hyperlipidemia Code(s): E78.5 - HYPERLIPIDEMIA, UNSPECIFIED Qualifiers: Hyperlipidemia type: pure hypercholesterolemia Qualified Code(s): E78.00 - Pure hypercholesterolemia, unspecified; E78.0 - Pure hypercholesterolemia
--- NOTE | 2019-01-15 08:49 | PN ---
Progress Note (short form) - Note Progress Note: Hospitalist to document today. More alert and tolerating his diet. Over 2500 cc output left chest tube; tentative plan is for right sided tube placement today. Platelets a bit higher at 75,000.
[2019-01-15] MEDS: MUPIROCIN 2% TOPICAL OINTMENT FOR DECOLONIZATION NS SCH (09:27)
--- NOTE | 2019-01-15 10:59 | PN ---
Physical Exam: SUBJECTIVE: Patient seen and examined at bedside. Denies chest pain, shortness of breath, nausea, vomiting. OBJECTIVE: Vital Signs Period Temp Pulse Resp BP Sys/Ascencio Pulse Ox Last 24 Hr 97.6 F-98.5 F 45-70 17-31 82-127/37-61 95-100 GENERAL: A&Ox3, no acute distress EYES: PERRLA, EOMI ENT: Moist mucus membranes, Oropharynx clear without any exudates or blood NECK: No JVD, no lymphadenopathy palpated on exam LUNGS: overall clear, possible mild wheezes on expiration and rhales at bases ( mild), L sided chest tube in place BREAST: no nodules or masses noted on exam HEART: RRR, no murmurs auscultated, R sided central catheter in place ABDOMEN: distended but soft, bowel sounds present, tympanitic to percussion, large, well healed vertical abdominal incision noted EXTREMITIES: 2+ pulses, no edema noted, no peripheral ischemia or thrombosis identified, no petechiae noted NEUROLOGICAL: Cranial nerves II-XII intact. No sensory or motor deficits. Laboratory Results - last 24 hr 01/14/19 01/14/19 01/15/19 12:35 12:35 05:30 WBC 4.8 5.0 RBC 2.70 L 2.49 L Hgb 8.7 L 7.9 L Hct 26.3 L 24.0 L MCV 97.3 H 96.5 H MCH 32.2 31.9 MCHC 33.1 33.0 RDW 16.6 H 16.0 H Plt Count 59 L 75 L D MPV 8.6 9.2 Absolute Neuts (auto) 3.4 3.6 Neutrophils % 71.3 73.4 Lymphocytes % 10.1 D 11.9 Monocytes % 14.2 H 9.8 Eosinophils % 2.9 3.9 Basophils % 1.5 1.0 Nucleated RBC % 0 0 PT with INR 30.10 H INR 2.53 H Sodium Potassium Chloride Carbon Dioxide Anion Gap BUN Creatinine Creat Clearance w eGFR Random Glucose Calcium Phosphorus Magnesium 01/15/19 01/15/19 05:30 05:30 WBC RBC Hgb Hct MCV MCH MCHC RDW Plt Count MPV Absolute Neuts (auto) Neutrophils % Lymphocytes % Monocytes % Eosinophils % Basophils % Nucleated RBC % PT with INR 29.90 H INR 2.51 H Sodium 140 Potassium 3.2 L Chloride 104 Carbon Dioxide 29 Anion Gap 8 BUN 46 H Creatinine 4.6 H Creat Clearance w eGFR 12.09 Random Glucose 87 Calcium 8.3 L Phosphorus 4.9 Magnesium 2.0 Active Medications Generic Name Dose Route Start Last Admin Trade Name Freq PRN Reason Stop Dose Admin Albuterol Sulfate 1 amp 01/11/19 15:06 01/14/19 08:09 Ventolin 0.083% Nebulizer Soln - NEB 1 amp Q4H PRN Administration SHORT OF BREATH/WHEEZING Artificial Tears 1 drop 01/11/19 15:06 01/12/19 22:35 Artificial Tears OU 1 drop TID PRN Administration DRY EYES Chlorhexidine Gluconate 1 applic 01/10/19 22:00 01/14/19 21:52 Hibiclens For Decolonization - TP 1 applic HS JAYCE Administration Heparin Sodium (Porcine) 1,000 unit 01/11/19 15:06 Heparin - IVPUSH PRN PRN Heparin Heparin Sodium (Porcine) 5,000 unit 01/11/19 15:06 Heparin - IVPUSH PRN PRN Heparin Heparin Sodium/Dextrose 25,000 units in 500 mls @ 20 mls/hr 01/11/19 15:06 16:03 Heparin Infusion - IV Not Given TITR [facility] Protocol 1,000 UNITS/HR Sodium Chloride 250 mls @ 3,000 mls/hr 01/12/19 07:40 Normal Saline - IV 01/13/19 07:40 PRN PRN Hypotension during Dialysis Iron Sucrose 100 mg/ Sodium 100 mls @ 200 mls/hr 01/12/19 07:46 Chloride IVPB 01/12/19 08:15 ONCE ONE Mupirocin 1 applic 01/10/19 22:00 01/15/19 09:27 Bactroban Ointment (For Decolonization) - NS 01/15/19 21:59 1 applic BID JAYCE Administration Rosuvastatin Calcium 5 mg 01/11/19 22:00 01/14/19 22:03 Crestor - PO 5 mg HS JAYCE Administration Warfarin Sodium 5 mg 01/11/19 18:00 01/13/19 18:48 Coumadin - PO 5 mg DAILY@1800 JAYCE Administration ASSESSMENT/PLAN: 88 year old male with a history of CHF with preserved EF, HTN, HLD, COPD, CKD, A fib on coumadin, CAD s/p CABG and PCI presented to the hospital initially for shortness of breath on exertion that progressed to SOB at rest and admitted for Tx of CHF exacerbation #Thrombocytopenia: possibly secondary to hypersplenism from CHF as seen on new US vs HIT, platelets have improved today -hold heparin -follow HIT ab -monitor platelet count -warfarin held for possible R sided chest tube in AM -spleen mildly enlarged on US from 1 week ago, could be contributing to thrombocytopenia Mono Pete, PGY2 Will Discuss with Dr. Miramontes Dispo: We will continue to follow the patient. Thank you for this consultative opportunity. Visit type - Emergency Visit Emergency Visit: No - New Patient This patient is new to me today: No - Critical Care Critical Care patient: No
--- NOTE | 2019-01-15 11:08 | PN ---
Physical Exam: SUBJECTIVE: Patient seen and examined; looking and feeling much better today; on high low 30L; sating well; roula tube left +drain OBJECTIVE: Vital Signs Period Temp Pulse Resp BP Sys/Ascencio Pulse Ox Last 24 Hr 97.6 F-98.5 F 45-70 17-31 82-127/37-61 95-100 GENERAL: The patient is awake, alert, and fully oriented, in no acute distress. NECK: Trachea midline, full range of motion, supple. LUNGS: scattered rhonchi; woith left chest tube +drain serosanguinous fluid HEART: Regular rate and rhythm, S1, S2 without murmur, rub or gallop. ABDOMEN: Soft, nontender, nondistended, normoactive bowel sounds, no guarding, no rebound, no hepatosplenomegaly, no masses. EXTREMITIES: 2+ pulses, warm, well-perfused, edema unchanged. NEUROLOGICAL: Cranial nerves II through XII grossly intact. Normal speech, gait not observed. PSYCH: Normal mood, normal affect. SKIN: Warm, dry, normal turgor, no rashes or lesions noted Laboratory Results - last 24 hr 01/14/19 01/14/19 01/15/19 12:35 12:35 05:30 WBC 4.8 5.0 RBC 2.70 L 2.49 L Hgb 8.7 L 7.9 L Hct 26.3 L 24.0 L MCV 97.3 H 96.5 H MCH 32.2 31.9 MCHC 33.1 33.0 RDW 16.6 H 16.0 H Plt Count 59 L 75 L D MPV 8.6 9.2 Absolute Neuts (auto) 3.4 3.6 Neutrophils % 71.3 73.4 Lymphocytes % 10.1 D 11.9 Monocytes % 14.2 H 9.8 Eosinophils % 2.9 3.9 Basophils % 1.5 1.0 Nucleated RBC % 0 0 PT with INR 30.10 H INR 2.53 H Sodium Potassium Chloride Carbon Dioxide Anion Gap BUN Creatinine Creat Clearance w eGFR Random Glucose Calcium Phosphorus Magnesium 01/15/19 01/15/19 05:30 05:30 WBC RBC Hgb Hct MCV MCH MCHC RDW Plt Count MPV Absolute Neuts (auto) Neutrophils % Lymphocytes % Monocytes % Eosinophils % Basophils % Nucleated RBC % PT with INR 29.90 H INR 2.51 H Sodium 140 Potassium 3.2 L Chloride 104 Carbon Dioxide 29 Anion Gap 8 BUN 46 H Creatinine 4.6 H Creat Clearance w eGFR 12.09 Random Glucose 87 Calcium 8.3 L Phosphorus 4.9 Magnesium 2.0 Active Medications Generic Name Dose Route Start Last Admin Trade Name Freq PRN Reason Stop Dose Admin Albuterol Sulfate 1 amp 01/11/19 15:06 01/14/19 08:09 Ventolin 0.083% Nebulizer Soln - NEB 1 amp Q4H PRN Administration SHORT OF BREATH/WHEEZING Artificial Tears 1 drop 01/11/19 15:06 01/12/19 22:35 Artificial Tears OU 1 drop TID PRN Administration DRY EYES Chlorhexidine Gluconate 1 applic 01/10/19 22:00 01/14/19 21:52 Hibiclens For Decolonization - TP 1 applic HS JAYCE Administration Heparin Sodium (Porcine) 1,000 unit 01/11/19 15:06 Heparin - IVPUSH PRN PRN Heparin Heparin Sodium (Porcine) 5,000 unit 01/11/19 15:06 Heparin - IVPUSH PRN PRN Heparin Heparin Sodium/Dextrose 25,000 units in 500 mls @ 20 mls/hr 01/11/19 15:06 16:03 Heparin Infusion - IV Not Given TITR [facility] Protocol 1,000 UNITS/HR Sodium Chloride 250 mls @ 3,000 mls/hr 01/12/19 07:40 Normal Saline - IV 01/13/19 07:40 PRN PRN Hypotension during Dialysis Iron Sucrose 100 mg/ Sodium 100 mls @ 200 mls/hr 01/12/19 07:46 Chloride IVPB 01/12/19 08:15 ONCE ONE Mupirocin 1 applic 01/10/19 22:00 01/15/19 09:27 Bactroban Ointment (For Decolonization) - NS 01/15/19 21:59 1 applic BID JAYCE Administration Rosuvastatin Calcium 5 mg 01/11/19 22:00 01/14/19 22:03 Crestor - PO 5 mg HS JAYCE Administration Warfarin Sodium 5 mg 01/11/19 18:00 01/13/19 18:48 Coumadin - PO 5 mg DAILY@1800 JAYCE Administration ASSESSMENT/PLAN: This is a 88 year old male with a history of CAD s/p CABG, s/p PCI/LUIS EDUARDO , persistent atrial fibrillation, diastolic congestive heart failure, HTN, carotid stenosis who presented with worsening SON, orthopnea, b/l leg edema, found to be in acute heart failure. #Acute on chronic diastolic heart failure -s/p chest tube; f/u fluid analysis -daily weights, strict I/Os; christina in place -cardio , renal -HD; #Acute hypoxic respiratory failure - sec to vol overload; on high flow; s/p chest tube #Atrial fibrillation -rate controlled -heparin GGT; on hold; s/p chest tube placement #Acute on chronic kidney disease; permacath -HD s -cardio; renal vs sec to hypotension; -urine lytes -stirct i/os -ua, uc #Macrocytic Anemia; monitor for acute bleed; stable -stool for acute blood negative -s/p 1UPRBC -vit b12, foalte wnl; iron studies low #thrombocytopenia: platelets 80s; now in 50s; HOLD AC -congestive changes vs reactive vs HIT?; ; ITP? liver dz? -abdominal US +hepatomegaly; #hypokalemia; -replace #hyperphosphetema; sec renal failure -hd; phos lo #UTI: -completed antibiotics course #COPD -; cont IH bronchodilators #HTN -hold home meds; #HLD -statin Dispo: ICU monitoring Visit type - Emergency Visit Emergency Visit: Yes ED Registration Date: 12/30/18 Care time: The patient presented to the Emergency Department on the above date and was hospitalized for further evaluation of their emergent condition. - New Patient This patient is new to me today: No - Critical Care Critical Care patient: Yes Total Critical Care Time (in minutes): 35 Critical Care Statement: The care of this patient involved high complexity decision making to prevent further life threatening deterioration of the patient 's condition and/or to evaluate & treat vital organ system(s) failure or risk of failure.
--- NOTE | 2019-01-15 12:38 | PN ---
Teaching Attending Note Name of Resident: Venancio Combs ATTENDING PHYSICIAN STATEMENT I saw and evaluated the patient. I reviewed the resident's note and discussed the case with the resident. I agree with the resident's findings and plan as documented. SUBJECTIVE: Pt seen and examined in the ICU. Remains on HFOT. States breathing continues to improve. Platelet count slightly higher today. OBJECTIVE: Vital Signs Period Temp Pulse Resp BP Sys/Ascencio Pulse Ox Last 24 Hr 97.6 F-98.5 F 55-70 17-31 82-127/37-53 94-100 Intake & Output 01/12/19 01/13/19 01/14/19 01/15/19 23:59 23:59 23:59 23:59 Intake Total 1124 1064 808 250 Output Total 0 2550 360 110 Balance 1124 -1486 448 140 Weight 88.269 kg 85.684 kg 83.552 kg Gen: less tachypneic on HFOT Heart: RRR Lung: decreased breath sounds right base Abd: soft, nontender Ext: no edema CBC, BMP 01/15/19 05:30 01/15/19 05:30 Active Medications Albuterol Sulfate (Ventolin 0.083% Nebulizer Soln -) 1 amp NEB Q4H PRN PRN Reason: SHORT OF BREATH/WHEEZING Last Admin: 01/14/19 08:09 Dose: 1 amp Artificial Tears (Artificial Tears) 1 drop OU TID PRN PRN Reason: DRY EYES Last Admin: 01/12/19 22:35 Dose: 1 drop Chlorhexidine Gluconate (Hibiclens For Decolonization -) 1 applic TP HS JAYCE Last Admin: 01/14/19 21:52 Dose: 1 applic Heparin Sodium (Porcine) (Heparin -) 1,000 unit IVPUSH PRN PRN PRN Reason: Heparin Heparin Sodium (Porcine) (Heparin -) 5,000 unit IVPUSH PRN PRN PRN Reason: Heparin Heparin Sodium/Dextrose (Heparin Infusion -) 25,000 units in 500 mls @ 20 mls/ hr IV TITR JAYCE; Protocol Last Admin: 01/14/19 16:03 Dose: Not Given Sodium Chloride (Normal Saline -) 250 mls @ 3,000 mls/hr IV PRN PRN PRN Reason: Hypotension during Dialysis Stop: 01/13/19 07:40 Iron Sucrose 100 mg/ Sodium (Chloride) 100 mls @ 200 mls/hr IVPB ONCE ONE Stop: 01/12/19 08:15 Mupirocin (Bactroban Ointment (For Decolonization) -) 1 applic NS BID [facility] Stop: 01/15/19 21:59 Last Admin: 01/15/19 09:27 Dose: 1 applic Rosuvastatin Calcium (Crestor -) 5 mg PO HS [facility] Last Admin: 01/14/19 22:03 Dose: 5 mg Warfarin Sodium (Coumadin -) 5 mg PO DAILY@1800 [facility] Last Admin: 01/13/19 18:48 Dose: 5 mg ASSESSMENT AND PLAN: Acute Hypoxic Respiratory Failure Acute on Chronic Diastolic Heart Failure Volume Overload Atrial Fibrillation Acute on Chronic Renal Failure requiring HD COPD Anemia Hypercholesterolemia Thrombocytopenia - HD per renal with ultrafiltration - holding anticoagulation - will place right sided chest tube when coags improve - daily weights - taper HFOT O2 to keep SpO2 >90% - transition to nasal cannula - rate control - continue ICU monitoring for tenuous respiratory status critical care time spent reviewing chart, evaluating patient and formulating plan 35 min
--- NOTE | 2019-01-15 12:49 | PN ---
Progress Note, Physician History of Present Illness: Pt seen and examined at bedside. He is awake and alert. He denies shortness of breath at rest however he is on high flow oxygen. - Current Medication List Current Medications: Active Medications Albuterol Sulfate (Ventolin 0.083% Nebulizer Soln -) 1 amp NEB Q4H PRN PRN Reason: SHORT OF BREATH/WHEEZING Last Admin: 01/14/19 08:09 Dose: 1 amp Artificial Tears (Artificial Tears) 1 drop OU TID PRN PRN Reason: DRY EYES Last Admin: 01/12/19 22:35 Dose: 1 drop Chlorhexidine Gluconate (Hibiclens For Decolonization -) 1 applic TP HS [facility] Last Admin: 01/14/19 21:52 Dose: 1 applic Heparin Sodium (Porcine) (Heparin -) 1,000 unit IVPUSH PRN PRN PRN Reason: Heparin Heparin Sodium (Porcine) (Heparin -) 5,000 unit IVPUSH PRN PRN PRN Reason: Heparin Heparin Sodium/Dextrose (Heparin Infusion -) 25,000 units in 500 mls @ 20 mls/ hr IV TITR JAYCE; Protocol Last Admin: 01/14/19 16:03 Dose: Not Given Sodium Chloride (Normal Saline -) 250 mls @ 3,000 mls/hr IV PRN PRN PRN Reason: Hypotension during Dialysis Stop: 01/13/19 07:40 Iron Sucrose 100 mg/ Sodium (Chloride) 100 mls @ 200 mls/hr IVPB ONCE ONE Stop: 01/12/19 08:15 Mupirocin (Bactroban Ointment (For Decolonization) -) 1 applic NS BID [facility] Stop: 01/15/19 21:59 Last Admin: 01/15/19 09:27 Dose: 1 applic Rosuvastatin Calcium (Crestor -) 5 mg PO HS [facility] Last Admin: 01/14/19 22:03 Dose: 5 mg Warfarin Sodium (Coumadin -) 5 mg PO DAILY@1800 [facility] Last Admin: 01/13/19 18:48 Dose: 5 mg - Objective Vital Signs: Vital Signs Temperature 97.6 F 01/15/19 10:00 Pulse Rate 66 01/15/19 12:00 Respiratory Rate 24 H 01/15/19 12:00 Blood Pressure 99/52 L 01/15/19 12:00 O2 Sat by Pulse Oximetry (%) 94 L 01/15/19 10:00 Constitutional: Yes: Calm Eyes: Yes: Conjunctiva Clear HENT: Yes: Atraumatic Cardiovascular: Yes: S1, S2 Respiratory: Yes: On Nasal O2, Other (chest tube) Gastrointestinal: Yes: Soft Genitourinary: Yes: Incontinence Musculoskeletal: Yes: Muscle Weakness Edema: Yes Edema: LLE: 1+, RLE: 1+ Neurological: Yes: Oriented Psychiatric: Yes: Oriented Labs: CBC, BMP 01/15/19 05:30 01/15/19 05:30 INR, PTT INR 2.51 (0.83-1.09) H 01/15/19 05:30 Problem List - Problems (1) Urkbb-oq-ravhaug kidney injury Code(s): N17.9 - ACUTE KIDNEY FAILURE, UNSPECIFIED; N18.9 - CHRONIC KIDNEY DISEASE, UNSPECIFIED Qualifiers: Acute renal failure type: unspecified Chronic kidney disease stage: unspecified stage Qualified Code(s): N17.9 - Acute kidney failure, unspecified ; N18.9 - Chronic kidney disease, unspecified (2) Congestive heart failure Code(s): I50.9 - HEART FAILURE, UNSPECIFIED Qualifiers: Heart failure type: unspecified Heart failure chronicity: acute on chronic Qualified Code(s): I50.9 - Heart failure, unspecified Assessment/Plan Current Medications Generic Name Dose Route Start Last Admin Trade Name Freq PRN Reason Stop Dose Admin Albuterol Sulfate 1 amp 01/11/19 15:06 01/14/19 08:09 Ventolin 0.083% Nebulizer Soln - NEB 1 amp Q4H PRN Administration SHORT OF BREATH/WHEEZING Artificial Tears 1 drop 01/11/19 15:06 01/12/19 22:35 Artificial Tears OU 1 drop TID PRN Administration DRY EYES Chlorhexidine Gluconate 1 applic 01/10/19 22:00 01/14/19 21:52 Hibiclens For Decolonization - TP 1 applic HS JAYCE Administration Heparin Sodium (Porcine) 1,000 unit 01/11/19 15:06 Heparin - IVPUSH PRN PRN Heparin Heparin Sodium (Porcine) 5,000 unit 01/11/19 15:06 Heparin - IVPUSH PRN PRN Heparin Heparin Sodium/Dextrose 25,000 units in 500 mls @ 20 mls/hr 01/11/19 15:06 16:03 Heparin Infusion - IV Not Given TITR JAYCE Protocol 1,000 UNITS/HR Sodium Chloride 250 mls @ 3,000 mls/hr 01/12/19 07:40 Normal Saline - IV 01/13/19 07:40 PRN PRN Hypotension during Dialysis Iron Sucrose 100 mg/ Sodium 100 mls @ 200 mls/hr 01/12/19 07:46 Chloride IVPB 01/12/19 08:15 ONCE ONE Mupirocin 1 applic 01/10/19 22:00 01/15/19 09:27 Bactroban Ointment (For Decolonization) - NS 01/15/19 21:59 1 applic BID [facility]AYCE Administration Rosuvastatin Calcium 5 mg 01/11/19 22:00 01/14/19 22:03 Crestor - PO 5 mg HS JAYCE Administration Warfarin Sodium 5 mg 01/11/19 18:00 01/13/19 18:48 Coumadin - PO 5 mg DAILY@1800 JAYCE Administration Impression 1. ANGELA 2. CKD 3. CHF 4. hypotension 5. resp failure requiring bipap 6. a-fib 7. hld 8. bilateral pleural effusions 9. anemia 10. hypokalemia Plan - HD today, discussed with ICU, he is not getting a chest tube today - daily cxr - monitor pulse ox - monitor bp - pt likely has ATN - avoid nsaids - prognosis guarded
--- NOTE | 2019-01-15 13:25 | PN ---
Teaching Attending Note Name of Resident: Mono Pete ATTENDING PHYSICIAN STATEMENT I saw and evaluated the patient. I reviewed the resident's note and discussed the case with the resident. I agree with the resident's findings and plan as documented. SUBJECTIVE: Patient seen and examined Development of thrombocytopenia in the setting of heparin and CHF with fluid overload Last Vital Signs Temp Pulse Resp BP Pulse Ox 97.6 F 66 24 H 99/52 L 94 L 01/15/19 10:00 01/15/19 12:00 01/15/19 12:00 01/15/19 12:00 01/15/19 10:00 HEENT: [place], EOM Intact Oropharynx: No thrush, No mucositis, upper, lower bite plate Cor: RSR, systolic murmur Lungs: rales bases , poor inspiratory effort Abd: Soft, Normal bowel sounds, No organomegaly, distended Ext:No significant edema Skin: No rashes, Integument intact CBC, BMP 01/15/19 05:30 01/15/19 05:30 Current Medications Generic Name Dose Route Start Last Admin Trade Name Freq PRN Reason Stop Dose Admin Albumin Human 12.5 gm 01/15/19 13:00 Albumin Human 25% IVPB Q30M JAYCE Albuterol Sulfate 1 amp 01/11/19 15:06 01/14/19 08:09 Ventolin 0.083% Nebulizer Soln - NEB 1 amp Q4H PRN Administration SHORT OF BREATH/WHEEZING Artificial Tears 1 drop 01/11/19 15:06 01/12/19 22:35 Artificial Tears OU 1 drop TID PRN Administration DRY EYES Chlorhexidine Gluconate 1 applic 01/10/19 22:00 01/14/19 21:52 Hibiclens For Decolonization - TP 1 applic HS JAYCE Administration Heparin Sodium (Porcine) 1,000 unit 01/11/19 15:06 Heparin - IVPUSH PRN PRN Heparin Heparin Sodium (Porcine) 5,000 unit 01/11/19 15:06 Heparin - IVPUSH PRN PRN Heparin Heparin Sodium/Dextrose 25,000 units in 500 mls @ 20 mls/hr 01/11/19 15:06 16:03 Heparin Infusion - IV Not Given TITR JAYCE Protocol 1,000 UNITS/HR Sodium Chloride 250 mls @ 3,000 mls/hr 01/15/19 12:49 Normal Saline - IV 01/16/19 12:50 PRN PRN Hypotension during Dialysis Iron Sucrose 100 mg/ Sodium 100 mls @ 200 mls/hr 01/15/19 12:49 Chloride IVPB 01/15/19 13:18 ONCE ONE Mupirocin 1 applic 01/10/19 22:00 01/15/19 09:27 Bactroban Ointment (For Decolonization) - NS 01/15/19 21:59 1 applic BID [facility]AYCE Administration Rosuvastatin Calcium 5 mg 01/11/19 22:00 01/14/19 22:03 Crestor - PO 5 mg HS JAYCE Administration Warfarin Sodium 5 mg 01/11/19 18:00 01/13/19 18:48 Coumadin - PO 5 mg DAILY@1800 J[facility] Administration OBJECTIVE:Impression: Thrombocytopenia Anemia CKD/ANGELA CHF Bilateral pleural effusions Respiratory failure Suspect thrombocytopenia on the basis of liver congestion from CHF with secondary hypersplenism ( [place] mildly enlarged spleen) HIT antibody pending Would continue to diurese and hold heparin pending HITantibody Monitoring of CBC ASSESSMENT AND PLAN:
--- NOTE | 2019-01-15 16:00 | PN ---
Progress Note, Physician History of Present Illness: Remains on HFO2, hemodynamics stable, started HD via PC. Left chest tube inserted. Toprol held for bradycardia and hypotension. - Current Medication List Current Medications: Active Medications Albumin Human (Albumin Human 25%) 12.5 gm IVPB Q30M [facility] Albuterol Sulfate (Ventolin 0.083% Nebulizer Soln -) 1 amp NEB Q4H PRN PRN Reason: SHORT OF BREATH/WHEEZING Last Admin: 01/14/19 08:09 Dose: 1 amp Artificial Tears (Artificial Tears) 1 drop OU TID PRN PRN Reason: DRY EYES Last Admin: 01/12/19 22:35 Dose: 1 drop Chlorhexidine Gluconate (Hibiclens For Decolonization -) 1 applic TP HS [facility] Last Admin: 01/14/19 21:52 Dose: 1 applic Heparin Sodium (Porcine) (Heparin -) 1,000 unit IVPUSH PRN PRN PRN Reason: Heparin Heparin Sodium (Porcine) (Heparin -) 5,000 unit IVPUSH PRN PRN PRN Reason: Heparin Heparin Sodium/Dextrose (Heparin Infusion -) 25,000 units in 500 mls @ 20 mls/ hr IV TITR JAYCE; Protocol Last Admin: 01/14/19 16:03 Dose: Not Given Sodium Chloride (Normal Saline -) 250 mls @ 3,000 mls/hr IV PRN PRN PRN Reason: Hypotension during Dialysis Stop: 01/16/19 12:50 Iron Sucrose 100 mg/ Sodium (Chloride) 100 mls @ 200 mls/hr IVPB ONCE ONE Stop: 01/15/19 13:18 Mupirocin (Bactroban Ointment (For Decolonization) -) 1 applic NS BID [facility] Stop: 01/15/19 21:59 Last Admin: 01/15/19 09:27 Dose: 1 applic Rosuvastatin Calcium (Crestor -) 5 mg PO HS [facility] Last Admin: 01/14/19 22:03 Dose: 5 mg Warfarin Sodium (Coumadin -) 5 mg PO DAILY@1800 [facility] Last Admin: 01/13/19 18:48 Dose: 5 mg - Objective Vital Signs: Vital Signs Temperature 98.8 F 01/15/19 13:19 Pulse Rate 54 L 01/15/19 15:00 Respiratory Rate 24 H 01/15/19 13:19 Blood Pressure 109/50 L 01/15/19 13:19 O2 Sat by Pulse Oximetry (%) 98 01/15/19 15:00 Constitutional: Yes: No Distress, Calm Neck: Yes: Supple Cardiovascular: Yes: Regular Rate and Rhythm Respiratory: Yes: Regular, Diminished, On Nasal O2 Gastrointestinal: Yes: Normal Bowel Sounds, Soft Edema: No Labs: CBC, BMP 01/15/19 05:30 01/15/19 05:30 INR, PTT INR 2.51 (0.83-1.09) H 01/15/19 05:30 Problem List - Problems (1) Gxeis-fv-gffuerp kidney injury Code(s): N17.9 - ACUTE KIDNEY FAILURE, UNSPECIFIED; N18.9 - CHRONIC KIDNEY DISEASE, UNSPECIFIED Qualifiers: Acute renal failure type: unspecified Chronic kidney disease stage: unspecified stage Qualified Code(s): N17.9 - Acute kidney failure, unspecified ; N18.9 - Chronic kidney disease, unspecified (2) Acute on chronic diastolic (congestive) heart failure Code(s): I50.33 - ACUTE ON CHRONIC DIASTOLIC (CONGESTIVE) HEART FAILURE (3) CAD (coronary artery disease) Code(s): I25.10 - ATHSCL HEART DISEASE OF [place] CORONARY ARTERY W/O ANG PCTRS Qualifiers: Coronary Disease-Associated Artery/Lesion type: [place] artery [place] vs. 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 (7) HTN (hypertension) Code(s): I10 - ESSENTIAL (PRIMARY) HYPERTENSION Qualifiers: Hypertension type: essential hypertension Qualified Code(s): I10 - Essential (primary) hypertension (8) Hx of CABG Code(s): Z95.1 - PRESENCE OF AORTOCORONARY BYPASS GRAFT (9) SOB (shortness of breath) Code(s): R06.02 - SHORTNESS OF BREATH (10) Status post insertion of drug-eluting stent into left anterior descending ( LAD) artery Code(s): Z95.5 - PRESENCE OF CORONARY ANGIOPLASTY IMPLANT AND GRAFT (11) Anemia Code(s): D64.9 - ANEMIA, UNSPECIFIED Qualifiers: Anemia type: unspecified type Qualified Code(s): D64.9 - Anemia, unspecified (12) Atrial fibrillation Code(s): I48.91 - UNSPECIFIED ATRIAL FIBRILLATION Qualifiers: Atrial fibrillation type: permanent Qualified Code(s): I48.2 - Chronic atrial fibrillation (13) Hyperlipidemia Code(s): E78.5 - HYPERLIPIDEMIA, UNSPECIFIED Qualifiers: Hyperlipidemia type: pure hypercholesterolemia Qualified Code(s): E78.00 - Pure hypercholesterolemia, unspecified; E78.0 - Pure hypercholesterolemia (14) Subendocardial ischemia Code(s): I24.8 - OTHER FORMS OF ACUTE ISCHEMIC HEART DISEASE Assessment/Plan 12/31/2018 Echo: Normal LV size and fxn LVEF 60%, mod dilated RV with mild decreased RV fxn, mild-mod AUTUMN, mild MR, mod TR RVSP 31 mmHg 1. Acute Hypoxic Respiratory Failure 2. Acute on chronic diastolic heart failure with pleural effusion post left chest tube drainage 3. CAD post CABG/PCI (stent) evidence of demand ischemia angina pectoris 4. Persistent atrial fibrillation [id number] score of 5 on Coumadin therapy with therapeutic INR 5. Hypertension 6. Hypercholesterolemia 7. MR mild to moderate in severity 8. TR moderate in severity 9. Carotid stenosis, moderate in severity 10. COPD 11. Acute on chronic kidney disease, initiated HD via PC 12. Anemia, thrombocytopenia PLAN: 1. Ideally resume Toprol XL 25 qd, hemodynamics permitting 2. Ideally should be on ACEI or ARBS, pending renal function stabilization or HD initiation, replete K 3. Continue Crestor 5 qhs 4. D/c Heparin gtt, hold coumadin pending right chest tube placement 5. HD via PC per renal service, with monitor urine output, creatinine 6. Titrate HFOT to keep SpO2 >90%, right chest tube drainage planned once INR acceptable
[2019-01-15] MEDS: WARFARIN NA 5 MG TABLET (UD) PO SCH (17:29)
[2019-01-15] MEDS ORDERED: SODIUM CHLORIDE 250 ML IV PRN (17:31)
[2019-01-15] MEDS ORDERED: IRON SUCROSE INJECTION 100 MG in SODIUM CHLORIDE 95 ML IVPB ONE (17:45)
[2019-01-15] MEDS: ALBUMIN HUMAN 25% 12.5 GM/50 ML VIAL IVPB SCH ×3 (19:10→19:12)
[2019-01-15] MEDS: ROSUVASTATIN CA 5 MG TABLET (FP) PO SCH (21:11)
[2019-01-15] MEDS: CHLORHEXIDINE GLUCONATE 4% CLEANSER FOR DECOLONIZATION TP SCH (21:12)
[2019-01-16 06:35] LABS: HEMATOCRIT 24.1 % (35.4-49); HEMOGLOBIN 8.1 GM/dL (11.7-16.9); MCH 32.4 pg (25.7-33.7); MCHC 33.7 g/dl (32.0-35.9); MEAN PLT VOLUME 8.1 fl (7.5-11.1); PLATELET COUNT 50 K/MM3 (134-434); RBC 2.51 M/mm3 (4.00-5.60); RDW 15.7 % (11.9-15.9); WHITE BLOOD COUNT 4.2 K/mm3 (4.0-10.0)
[2019-01-16 06:43] LABS: INR 2.38 (0.83-1.09); PROTHROMBIN TIME (PATIENT) 28.3 SEC (9.7-13.0)
[2019-01-16 06:59] LABS: ANION GAP 9 MMOL/L (8-16); BLOOD UREA NITROGEN 30 mg/dL (7-18); CALCIUM 7.6 mg/dL (8.5-10.1); CHLORIDE 104 mmol/L (98-107); CO2 28 mmol/L (21-32); CREATININE 3.5 mg/dL (0.55-1.3); GLUCOSE,RANDOM 88 mg/dL (74-106); MAGNESIUM 1.8 mg/dL (1.8-2.4); SODIUM 142 mmol/L (136-145)
--- NOTE | 2019-01-16 08:56 | PN ---
Progress Note (short form) - Note Progress Note: Hospitalist to document today. Platelets lower at 50,000. Continues to be aware with a fair appetite.
--- NOTE | 2019-01-16 11:39 | PN ---
Teaching Attending Note Name of Resident: Ernestina Hodges ATTENDING PHYSICIAN STATEMENT I saw and evaluated the patient. I reviewed the resident's note and discussed the case with the resident. I agree with the resident's findings and plan as documented. SUBJECTIVE: Mr Aleman says he is feeling good today. Denies cp, sob, n/v OBJECTIVE: Last Vital Signs Temp Pulse Resp BP Pulse Ox 36.8 C 60 26 H 110/66 98 01/16/19 10:00 01/16/19 11:26 01/16/19 10:00 01/16/19 10:00 01/16/19 11:26 Gen: nad Pulm: ronchi bilaterally CV: bradycardic, in high 30s when sleeping and increases to 60s when awake Abd: +bs, s/nt/nd Ext: no c/c/e CBC, BMP 01/16/19 05:30 01/16/19 05:30 ASSESSMENT AND PLAN: (1) Acute on chronic diastolic (congestive) heart failure Assessment/Plan: -still requiring high flow oxygen but decreasing -HD per nephrology -chest tube in place Code(s): I50.33 - ACUTE ON CHRONIC DIASTOLIC (CONGESTIVE) HEART FAILURE (2) Bzrmh-vb-flxkimm kidney injury Assessment/Plan: -continue HD Code(s): N17.9 - ACUTE KIDNEY FAILURE, UNSPECIFIED; N18.9 - CHRONIC KIDNEY DISEASE, UNSPECIFIED Qualifiers: Acute renal failure type: unspecified Chronic kidney disease stage: unspecified stage Qualified Code(s): N17.9 - Acute kidney failure, unspecified ; N18.9 - Chronic kidney disease, unspecified (3) Pleural effusion Assessment/Plan: -chest tube in place -R sided chest tube not placed secondary to thrombocytopenia -however breathing improved -monitor, may not need second chest tube Code(s): T45.511A - POISONING BY ANTICOAGULANTS, ACCIDENTAL, INIT (4) CAD (coronary artery disease) Assessment/Plan: -quiescent -cardiology following Code(s): I25.10 - ATHSCL HEART DISEASE OF [place] CORONARY ARTERY W/O ANG PCTRS Qualifiers: Coronary Disease-Associated Artery/Lesion type: [place] artery [place] vs. transplanted heart: [place] heart Associated angina: without angina Qualified Code(s): I25.10 - Atherosclerotic heart disease of [place] coronary artery without angina pectoris (5) COPD (chronic obstructive pulmonary disease) Assessment/Plan: -not in exacerbation -pulmonary following Code(s): J44.9 - CHRONIC OBSTRUCTIVE PULMONARY DISEASE, UNSPECIFIED Qualifiers: COPD type: unspecified COPD Qualified Code(s): J44.9 - Chronic obstructive pulmonary disease, unspecified (6) Chronic anemia Assessment/Plan: -stable Code(s): D64.9 - ANEMIA, UNSPECIFIED (7) HTN (hypertension) Assessment/Plan: -well controlled Code(s): I10 - ESSENTIAL (PRIMARY) HYPERTENSION Qualifiers: Hypertension type: essential hypertension Qualified Code(s): I10 - Essential (primary) hypertension (8) Pulmonary hypertension Assessment/Plan: -noted Code(s): I27.2 - OTHER SECONDARY PULMONARY HYPERTENSION * DO NOT USE * (9) Atrial fibrillation Assessment/Plan: -controlled -heparin gtt stopped secondary to thrombocytopenia Code(s): I48.91 - UNSPECIFIED ATRIAL FIBRILLATION Qualifiers: Atrial fibrillation type: permanent Qualified Code(s): I48.2 - Chronic atrial fibrillation (10) Hyperlipidemia Assessment/Plan: -crestor Code(s): E78.5 - HYPERLIPIDEMIA, UNSPECIFIED Qualifiers: Hyperlipidemia type: pure hypercholesterolemia Qualified Code(s): E78.00 - Pure hypercholesterolemia, unspecified; E78.0 - Pure hypercholesterolemia (11) Acute on chronic hypoxic respiratory failure -weaning oxygen as tolerated Problem List - Problems (1) Acute on chronic diastolic (congestive) heart failure Code(s): I50.33 - ACUTE ON CHRONIC DIASTOLIC (CONGESTIVE) HEART FAILURE (2) Vzoqs-pi-runwwgg kidney injury Code(s): N17.9 - ACUTE KIDNEY FAILURE, UNSPECIFIED; N18.9 - CHRONIC KIDNEY DISEASE, UNSPECIFIED Qualifiers: Acute renal failure type: unspecified Chronic kidney disease stage: unspecified stage Qualified Code(s): N17.9 - Acute kidney failure, unspecified ; N18.9 - Chronic kidney disease, unspecified (3) Warfarin toxicity Code(s): T45.511A - POISONING BY ANTICOAGULANTS, ACCIDENTAL, INIT (4) CAD (coronary artery disease) Code(s): I25.10 - ATHSCL HEART DISEASE OF [place] CORONARY ARTERY W/O ANG PCTRS Qualifiers: Coronary Disease-Associated Artery/Lesion type: [place] artery [place] vs. transplanted heart: [place] heart Associated angina: without angina Qualified Code(s): I25.10 - Atherosclerotic heart disease of [place] coronary artery without angina pectoris (5) COPD (chronic obstructive pulmonary disease) Code(s): J44.9 - CHRONIC OBSTRUCTIVE PULMONARY DISEASE, UNSPECIFIED Qualifiers: COPD type: unspecified COPD Qualified Code(s): J44.9 - Chronic obstructive pulmonary disease, unspecified (6) Chronic anemia Code(s): D64.9 - ANEMIA, UNSPECIFIED (7) HTN (hypertension) Code(s): I10 - ESSENTIAL (PRIMARY) HYPERTENSION Qualifiers: Hypertension type: essential hypertension Qualified Code(s): I10 - Essential (primary) hypertension (8) Pulmonary hypertension Code(s): I27.2 - OTHER SECONDARY PULMONARY HYPERTENSION * DO NOT USE * (9) Atrial fibrillation Code(s): I48.91 - UNSPECIFIED ATRIAL FIBRILLATION Qualifiers: Atrial fibrillation type: permanent Qualified Code(s): I48.2 - Chronic atrial fibrillation (10) Hyperlipidemia Code(s): E78.5 - HYPERLIPIDEMIA, UNSPECIFIED Qualifiers: Hyperlipidemia type: pure hypercholesterolemia Qualified Code(s): E78.00 - Pure hypercholesterolemia, unspecified; E78.0 - Pure hypercholesterolemia
--- NOTE | 2019-01-16 12:13 | PN ---
Progress Note, Physician History of Present Illness: O2 requirement weaned to NC, hemodynamics stable, tolerated HD via PC. Left chest tube in place. Toprol held for bradycardia and hypotension. - Current Medication List Current Medications: Active Medications Albuterol Sulfate (Ventolin 0.083% Nebulizer Soln -) 1 amp NEB Q4H PRN PRN Reason: SHORT OF BREATH/WHEEZING Last Admin: 01/14/19 08:09 Dose: 1 amp Artificial Tears (Artificial Tears) 1 drop OU TID PRN PRN Reason: DRY EYES Last Admin: 01/12/19 22:35 Dose: 1 drop Chlorhexidine Gluconate (Hibiclens For Decolonization -) 1 applic TP HS [facility] Last Admin: 01/15/19 21:12 Dose: 1 applic Heparin Sodium (Porcine) (Heparin -) 1,000 unit IVPUSH PRN PRN PRN Reason: Heparin Heparin Sodium (Porcine) (Heparin -) 5,000 unit IVPUSH PRN PRN PRN Reason: Heparin Heparin Sodium/Dextrose (Heparin Infusion -) 25,000 units in 500 mls @ 20 mls/ hr IV TITR [facility]; Protocol Last Admin: 01/14/19 16:03 Dose: Not Given Sodium Chloride (Normal Saline -) 250 mls @ 3,000 mls/hr IV PRN PRN PRN Reason: Hypotension during Dialysis Stop: 01/16/19 17:30 Rosuvastatin Calcium (Crestor -) 5 mg PO HS [facility] Last Admin: 01/15/19 21:11 Dose: 5 mg Warfarin Sodium (Coumadin -) 5 mg PO DAILY@1800 [facility] Last Admin: 01/15/19 17:29 Dose: Not Given - Objective Vital Signs: Vital Signs Temperature 98.2 F 01/16/19 10:00 Pulse Rate 60 01/16/19 11:26 Respiratory Rate 26 H 01/16/19 10:00 Blood Pressure 110/66 01/16/19 10:00 O2 Sat by Pulse Oximetry (%) 98 01/16/19 11:26 Constitutional: Yes: No Distress, Calm, Thin Neck: Yes: Supple Cardiovascular: Yes: Regular Rate and Rhythm Respiratory: Yes: Regular, Diminished, Other (Letf chest tube in place) Gastrointestinal: Yes: Soft, Hypoactive Bowel Sounds Edema: No Labs: CBC, BMP 01/16/19 05:30 01/16/19 05:30 INR, PTT INR 2.38 (0.83-1.09) H 01/16/19 05:30 - ....Imaging Chest X-ray: Report Reviewed (R>L effusions with left chest tube) Problem List - Problems (1) Rjjjv-ga-oejjdld kidney injury Code(s): N17.9 - ACUTE KIDNEY FAILURE, UNSPECIFIED; N18.9 - CHRONIC KIDNEY DISEASE, UNSPECIFIED Qualifiers: Acute renal failure type: unspecified Chronic kidney disease stage: unspecified stage Qualified Code(s): N17.9 - Acute kidney failure, unspecified ; N18.9 - Chronic kidney disease, unspecified (2) Acute on chronic diastolic (congestive) heart failure Code(s): I50.33 - ACUTE ON CHRONIC DIASTOLIC (CONGESTIVE) HEART FAILURE (3) CAD (coronary artery disease) Code(s): I25.10 - ATHSCL HEART DISEASE OF [place] CORONARY ARTERY W/O ANG PCTRS Qualifiers: Coronary Disease-Associated Artery/Lesion type: [place] artery [place] vs. 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 (7) HTN (hypertension) Code(s): I10 - ESSENTIAL (PRIMARY) HYPERTENSION Qualifiers: Hypertension type: essential hypertension Qualified Code(s): I10 - Essential (primary) hypertension (8) Hx of CABG Code(s): Z95.1 - PRESENCE OF AORTOCORONARY BYPASS GRAFT (9) SOB (shortness of breath) Code(s): R06.02 - SHORTNESS OF BREATH (10) Status post insertion of drug-eluting stent into left anterior descending ( LAD) artery Code(s): Z95.5 - PRESENCE OF CORONARY ANGIOPLASTY IMPLANT AND GRAFT (11) Anemia Code(s): D64.9 - ANEMIA, UNSPECIFIED Qualifiers: Anemia type: unspecified type Qualified Code(s): D64.9 - Anemia, unspecified (12) Atrial fibrillation Code(s): I48.91 - UNSPECIFIED ATRIAL FIBRILLATION Qualifiers: Atrial fibrillation type: permanent Qualified Code(s): I48.2 - Chronic atrial fibrillation (13) Hyperlipidemia Code(s): E78.5 - HYPERLIPIDEMIA, UNSPECIFIED Qualifiers: Hyperlipidemia type: pure hypercholesterolemia Qualified Code(s): E78.00 - Pure hypercholesterolemia, unspecified; E78.0 - Pure hypercholesterolemia (14) Subendocardial ischemia Code(s): I24.8 - OTHER FORMS OF ACUTE ISCHEMIC HEART DISEASE Assessment/Plan 12/31/2018 Echo: Normal LV size and fxn LVEF 60%, mod dilated RV with mild decreased RV fxn, mild-mod AUTUMN, mild MR, mod TR RVSP 31 mmHg 1. Acute Hypoxic Respiratory Failure 2. Acute on chronic diastolic heart failure with pleural effusion post left chest tube drainage 3. CAD post CABG/PCI (stent) evidence of demand ischemia angina pectoris 4. Persistent atrial fibrillation [id number] score of 5 on Coumadin therapy with therapeutic INR 5. Hypertension 6. Hypercholesterolemia 7. MR mild to moderate in severity 8. TR moderate in severity 9. Carotid stenosis, moderate in severity 10. COPD 11. Acute on chronic kidney disease, initiated HD via PC 12. Anemia, thrombocytopenia PLAN: 1. Ideally resume Toprol XL 25 qd, hemodynamics permitting 2. Ideally should be on ACEI or ARBS, pending renal function stabilization or HD initiation, replete K 3. Continue Crestor 5 qhs 4. D/c Heparin gtt, hold coumadin pending right chest tube placement 5. HD via PC per renal service, with monitor urine output, creatinine 6. FIO2 to keep SpO2 >90%, right chest tube drainage planned once INR acceptable
--- NOTE | 2019-01-16 12:49 | PN ---
Physical Exam: SUBJECTIVE: Patient seen and examined this AM. He states he is doing well today with minimal difficulty breathing overnight. OBJECTIVE: Vital Signs Period Temp Pulse Resp BP Sys/Ascencio Pulse Ox Last 24 Hr 98 F-98.8 F 46-80 21-32 91-123/42-75 93-100 GEN: A&O, no acute distress HEENT: PERRL, moist mucus membranes NECK: Supple, no lymphadenopathy HEART: RRR, no murmurs noted LUNGS: CTA b/l, decreased breath sounds on the right, left chest tube in place ABDOMEN: Soft, nontender, normoactive bowel sounds EXTREMITIES: no edema seen in b/l LE, no calf tenderness noted Laboratory Results - last 24 hr 01/13/19 01/16/19 01/16/19 15:30 05:30 05:30 WBC 4.2 RBC 2.51 L Hgb 8.1 L Hct 24.1 L MCV 96.0 MCH 32.4 MCHC 33.7 RDW 15.7 Plt Count 50 L D MPV 8.1 D PT with INR 28.30 H INR 2.38 H Sodium Potassium Chloride Carbon Dioxide Anion Gap BUN Creatinine Creat Clearance w eGFR Random Glucose Calcium Phosphorus Magnesium POC Fluid pH 8.0 Fluid Glucose 115 Body Fluid LDH Source 97 01/16/19 05:30 WBC RBC Hgb Hct MCV MCH MCHC RDW Plt Count MPV PT with INR INR Sodium 142 Potassium 3.0 L Chloride 104 Carbon Dioxide 28 Anion Gap 9 BUN 30 H Creatinine 3.5 H Creat Clearance w eGFR 16.57 Random Glucose 88 Calcium 7.6 L Phosphorus 3.0 Magnesium 1.8 POC Fluid pH Fluid Glucose Body Fluid LDH Source Active Medications Generic Name Dose Route Start Last Admin Trade Name Freq PRN Reason Stop Dose Admin Albuterol Sulfate 1 amp 01/11/19 15:06 01/14/19 08:09 Ventolin 0.083% Nebulizer Soln - NEB 1 amp Q4H PRN Administration SHORT OF BREATH/WHEEZING Artificial Tears 1 drop 01/11/19 15:06 01/12/19 22:35 Artificial Tears OU 1 drop TID PRN Administration DRY EYES Chlorhexidine Gluconate 1 applic 01/10/19 22:00 01/15/19 21:12 Hibiclens For Decolonization - TP 1 applic HS [facility] Administration Heparin Sodium (Porcine) 1,000 unit 01/11/19 15:06 Heparin - IVPUSH PRN PRN Heparin Heparin Sodium (Porcine) 5,000 unit 01/11/19 15:06 Heparin - IVPUSH PRN PRN Heparin Heparin Sodium/Dextrose 25,000 units in 500 mls @ 20 mls/hr 01/11/19 15:06 16:03 Heparin Infusion - IV Not Given TITR [facility] Protocol 1,000 UNITS/HR Sodium Chloride 250 mls @ 3,000 mls/hr 01/15/19 17:31 Normal Saline - IV 01/16/19 17:30 PRN PRN Hypotension during Dialysis Potassium Chloride 40 meq 01/16/19 12:20 Potassium Chloride Oral Liquid PO 01/16/19 12:21 ONCE ONE Rosuvastatin Calcium 5 mg 01/11/19 22:00 01/15/19 21:11 Crestor - PO 5 mg HS [facility] Administration Warfarin Sodium 5 mg 01/11/19 18:00 01/15/19 17:29 Coumadin - PO Not Given DAILY@1800 [facility] ASSESSMENT/PLAN: Patient is an 88 year old male who presented for worsening shortness of breath and was found to have CHF exacerbation with hypotension. Patient admitted to ICU for further monitoring and management. NEURO -Awake, Alert and oriented -On no sedation PULMONARY #Acute Hypoxic Respiratory Failure -Likely ATN without recovery of renal function and inadequate diuresis -Requiring High Flow O2 for pressure support and respiratory status, attempt to wean as able -Did not respond to lasix IV or drip, requiring HD for fluid removal at this time -Renal and bladder US without any signs of obstruction -Strict I&O's -Daily weights -Cardiology consult appreciated -Still with effusion on CXR SOB and tachypnea on HF, Left chest tube 01/13, 2970 cc output total, 470 cc output in last 24 hours -Reassess possible right chest tube placement tomorrow #COPD -No acute exacerbation -Albuterol nebulizer PRN -Maintain 02 Saturation >90% CARDIOLOGY #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 -Likely Cardio-Renal Syndrome -Repeat ECHO with normal EF, dilated RV and RA -Off pressors -Low sodium -Lester placed for strict I&O's -Daily weights -Hold B-mukesh until more hemodynamically stable #Permanent atrial fibrillation -[id number] -Warfarin, monitor INR #CAD s/p CABG -s/p PCI/LUIS EDUARDO to LAD -Continue Rosuvastatin, ASA and BB as hemodynamically tolerates -Maintain Hgb > 8 #HTN -Hold anti-htn medications as patient remains hypotensive #HLD -Continue home Crestor NEPHROLOGY #ANGELA on CKD -Likely ATN -Baseline around 1.5 -Kidney/Bladder U/S without signs of obstruction -Avoid nephrotoxic medications -Renally dose medications -Will hold CAROLYN/ARB for now -Nephrology consult appreciated -Monitor BMP -Requiring dialysis and chest tube for volume removal -Permacath placed 01/10 INFECTIOUS DISEASE #UTI - Resolved -Completed course of Rocephin -Urine culture grew Enterococcus HEMATOLOGY #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 -Repeat US with mildly enlarged spleen, normal splenic size on 01/08 -HIT Ab pending F/E/N -None -Monitor and correct as needed with likely with dialysis -Sodium controlled diet Prophylaxis -Heparin drip held for low platelets, warfarin held for possible chest tube placement -No GI required LINES -Permacath placed 01/10 -Left chest tube placed 01/13 -Reassess for possible right chest tube placement tomorrow Disposition -Full code -Off High Flow, likely stable for transfer to floors in AM Visit type - Emergency Visit Emergency Visit: Yes ED Registration Date: 12/30/18 Care time: The patient presented to the Emergency Department on the above date and was hospitalized for further evaluation of their emergent condition. - New Patient This patient is new to me today: No - Critical Care Critical Care patient: Yes Total Critical Care Time (in minutes): 37 Critical Care Statement: The care of this patient involved high complexity decision making to prevent further life threatening deterioration of the patient 's condition and/or to evaluate & treat vital organ system(s) failure or risk of failure.
[2019-01-16] MEDS ORDERED: POTASSIUM CHLORIDE ORAL LIQUID 20 MEQ/15 ML PO ONE (13:15)
--- NOTE | 2019-01-16 13:50 | PN ---
Teaching Attending Note Name of Resident: Venancio Combs ATTENDING PHYSICIAN STATEMENT I saw and evaluated the patient. I reviewed the resident's note and discussed the case with the resident. I agree with the resident's findings and plan as documented. SUBJECTIVE: Pt seen and examined in the ICU. Transitioned to nasal cannula during rounds. States breathing better. No chest pain. OBJECTIVE: Vital Signs Period Temp Pulse Resp BP Sys/Ascencio Pulse Ox Last 24 Hr 98 F-98.5 F 46-80 21-32 91-123/42-75 93-100 Intake & Output 01/13/19 01/14/19 01/15/19 01/16/19 23:59 23:59 23:59 23:59 Intake Total 1064 808 860 300 Output Total 2550 360 460 615 Balance -1486 448 400 -315 Weight 85.684 kg 83.552 kg 81.873 kg Gen: less tachypneic Heart: RRR Lung: decreased breath sounds right base Abd: soft, nontender Ext: no edema CBC, BMP 01/16/19 05:30 01/16/19 05:30 Active Medications Albuterol Sulfate (Ventolin 0.083% Nebulizer Soln -) 1 amp NEB Q4H PRN PRN Reason: SHORT OF BREATH/WHEEZING Last Admin: 01/14/19 08:09 Dose: 1 amp Artificial Tears (Artificial Tears) 1 drop OU TID PRN PRN Reason: DRY EYES Last Admin: 01/12/19 22:35 Dose: 1 drop Chlorhexidine Gluconate (Hibiclens For Decolonization -) 1 applic TP HS [facility] Last Admin: 01/15/19 21:12 Dose: 1 applic Heparin Sodium (Porcine) (Heparin -) 1,000 unit IVPUSH PRN PRN PRN Reason: Heparin Heparin Sodium (Porcine) (Heparin -) 5,000 unit IVPUSH PRN PRN PRN Reason: Heparin Heparin Sodium/Dextrose (Heparin Infusion -) 25,000 units in 500 mls @ 20 mls/ hr IV TITR [facility]; Protocol Last Admin: 01/14/19 16:03 Dose: Not Given Sodium Chloride (Normal Saline -) 250 mls @ 3,000 mls/hr IV PRN PRN PRN Reason: Hypotension during Dialysis Stop: 01/16/19 17:30 Rosuvastatin Calcium (Crestor -) 5 mg PO HS [facility] Last Admin: 01/15/19 21:11 Dose: 5 mg Warfarin Sodium (Coumadin -) 5 mg PO DAILY@1800 [facility] Last Admin: 01/15/19 17:29 Dose: Not Given ASSESSMENT AND PLAN: Acute Hypoxic Respiratory Failure Acute on Chronic Diastolic Heart Failure Volume Overload Atrial Fibrillation Acute on Chronic Renal Failure requiring HD COPD Anemia Hypercholesterolemia Thrombocytopenia - HD per renal with ultrafiltration - holding anticoagulation - will place right sided chest tube when coags/platelets improve - daily weights - O2 to keep SpO2 >90% - rate control - continue ICU monitoring critical care time spent reviewing chart, evaluating patient and formulating plan 35 min
--- NOTE | 2019-01-16 14:58 | PN ---
Progress Note, Physician History of Present Illness: Pt seen and examined at bedside. He is awake and appears comfortable. He feels that his breathing is improved. His oxygen requirements are improved. - Current Medication List Current Medications: Active Medications Albuterol Sulfate (Ventolin 0.083% Nebulizer Soln -) 1 amp NEB Q4H PRN PRN Reason: SHORT OF BREATH/WHEEZING Last Admin: 01/14/19 08:09 Dose: 1 amp Artificial Tears (Artificial Tears) 1 drop OU TID PRN PRN Reason: DRY EYES Last Admin: 01/12/19 22:35 Dose: 1 drop Chlorhexidine Gluconate (Hibiclens For Decolonization -) 1 applic TP HS [facility] Last Admin: 01/15/19 21:12 Dose: 1 applic Heparin Sodium (Porcine) (Heparin -) 1,000 unit IVPUSH PRN PRN PRN Reason: Heparin Heparin Sodium (Porcine) (Heparin -) 5,000 unit IVPUSH PRN PRN PRN Reason: Heparin Heparin Sodium/Dextrose (Heparin Infusion -) 25,000 units in 500 mls @ 20 mls/ hr IV TITR [facility]; Protocol Last Admin: 01/14/19 16:03 Dose: Not Given Sodium Chloride (Normal Saline -) 250 mls @ 3,000 mls/hr IV PRN PRN PRN Reason: Hypotension during Dialysis Stop: 01/16/19 17:30 Rosuvastatin Calcium (Crestor -) 5 mg PO HS [facility] Last Admin: 01/15/19 21:11 Dose: 5 mg Warfarin Sodium (Coumadin -) 5 mg PO DAILY@1800 [facility] Last Admin: 01/15/19 17:29 Dose: Not Given - Objective Vital Signs: Vital Signs Temperature 98 F 01/16/19 14:00 Pulse Rate 60 01/16/19 14:00 Respiratory Rate 26 H 01/16/19 14:00 Blood Pressure 94/49 L 01/16/19 14:00 O2 Sat by Pulse Oximetry (%) 98 01/16/19 11:26 Constitutional: Yes: Calm Eyes: Yes: Conjunctiva Clear HENT: Yes: Atraumatic Neck: Yes: Supple Cardiovascular: Yes: S1, S2 Respiratory: Yes: On Nasal O2, Other (chest tube) Gastrointestinal: Yes: Soft Genitourinary: Yes: Incontinence Musculoskeletal: Yes: Muscle Weakness Edema: Yes Edema: LLE: 1+, RLE: 1+ Neurological: Yes: Oriented Psychiatric: Yes: Oriented Labs: CBC, BMP 01/16/19 05:30 01/16/19 05:30 INR, PTT INR 2.38 (0.83-1.09) H 01/16/19 05:30 Problem List - Problems (1) Lvmbm-sa-fonupih kidney injury Code(s): N17.9 - ACUTE KIDNEY FAILURE, UNSPECIFIED; N18.9 - CHRONIC KIDNEY DISEASE, UNSPECIFIED Qualifiers: Acute renal failure type: unspecified Chronic kidney disease stage: unspecified stage Qualified Code(s): N17.9 - Acute kidney failure, unspecified ; N18.9 - Chronic kidney disease, unspecified (2) Congestive heart failure Code(s): I50.9 - HEART FAILURE, UNSPECIFIED Qualifiers: Heart failure type: unspecified Heart failure chronicity: acute on chronic Qualified Code(s): I50.9 - Heart failure, unspecified Assessment/Plan Current Medications Generic Name Dose Route Start Last Admin Trade Name Freq PRN Reason Stop Dose Admin Albuterol Sulfate 1 amp 01/11/19 15:06 01/14/19 08:09 Ventolin 0.083% Nebulizer Soln - NEB 1 amp Q4H PRN Administration SHORT OF BREATH/WHEEZING Artificial Tears 1 drop 01/11/19 15:06 01/12/19 22:35 Artificial Tears OU 1 drop TID PRN Administration DRY EYES Chlorhexidine Gluconate 1 applic 01/10/19 22:00 01/15/19 21:12 Hibiclens For Decolonization - TP 1 applic HS [facility] Administration Heparin Sodium (Porcine) 1,000 unit 01/11/19 15:06 Heparin - IVPUSH PRN PRN Heparin Heparin Sodium (Porcine) 5,000 unit 01/11/19 15:06 Heparin - IVPUSH PRN PRN Heparin Heparin Sodium/Dextrose 25,000 units in 500 mls @ 20 mls/hr 01/11/19 15:06 16:03 Heparin Infusion - IV Not Given TITR [facility] Protocol 1,000 UNITS/HR Sodium Chloride 250 mls @ 3,000 mls/hr 01/15/19 17:31 Normal Saline - IV 01/16/19 17:30 PRN PRN Hypotension during Dialysis Rosuvastatin Calcium 5 mg 01/11/19 22:00 01/15/19 21:11 Crestor - PO 5 mg HS [facility] Administration Warfarin Sodium 5 mg 01/11/19 18:00 01/15/19 17:29 Coumadin - PO Not Given DAILY@1800 [facility] Impression 1. ANGELA 2. CKD 3. CHF 4. hypotension 5. resp failure requiring bipap 6. a-fib 7. hld 8. bilateral pleural effusions 9. anemia 10. hypokalemia Plan - will arrange for HD tomorrow - discussed with ICU. pt will go out of bed to chair - monitor pulse ox - monitor urine output - monitor bp - pt likely has ATN - avoid nsaids
--- NOTE | 2019-01-16 15:37 | PN ---
Physical Exam: SUBJECTIVE: Patient seen and examined;sitting up in bed comfortable; left chest tube OBJECTIVE: Vital Signs Period Temp Pulse Resp BP Sys/Ascencio Pulse Ox Last 24 Hr 98 F-98.5 F 46-80 21-32 91-123/42-75 93-100 GENERAL: The patient is awake, alert, and fully oriented, in no acute distress. LUNGS:breath sounds improved; less crackles HEART: Regular rate and rhythm, S1, S2 without murmur, rub or gallop. ABDOMEN: Soft, nontender, nondistended, normoactive bowel sounds, no guarding, no rebound, no hepatosplenomegaly, no masses. EXTREMITIES: 2+ pulses, warm, well-perfused, trace edema. Laboratory Results - last 24 hr 01/13/19 01/16/19 01/16/19 15:30 05:30 05:30 WBC 4.2 RBC 2.51 L Hgb 8.1 L Hct 24.1 L MCV 96.0 MCH 32.4 MCHC 33.7 RDW 15.7 Plt Count 50 L D MPV 8.1 D PT with INR 28.30 H INR 2.38 H Sodium Potassium Chloride Carbon Dioxide Anion Gap BUN Creatinine Creat Clearance w eGFR Random Glucose Calcium Phosphorus Magnesium POC Fluid pH 8.0 01/16/19 05:30 WBC RBC Hgb Hct MCV MCH MCHC RDW Plt Count MPV PT with INR INR Sodium 142 Potassium 3.0 L Chloride 104 Carbon Dioxide 28 Anion Gap 9 BUN 30 H Creatinine 3.5 H Creat Clearance w eGFR 16.57 Random Glucose 88 Calcium 7.6 L Phosphorus 3.0 Magnesium 1.8 POC Fluid pH Active Medications Generic Name Dose Route Start Last Admin Trade Name Freq PRN Reason Stop Dose Admin Albumin Human 12.5 gm 01/17/19 15:00 Albumin Human 25% IVPB Q30M [facility] Artificial Tears 1 drop 01/11/19 15:06 01/12/19 22:35 Artificial Tears OU 1 drop TID PRN Administration DRY EYES Chlorhexidine Gluconate 1 applic 01/10/19 22:00 01/15/19 21:12 Hibiclens For Decolonization - TP 1 applic HS [facility] Administration Epoetin Denny 5,000 unit 01/17/19 14:58 Epogen - IVPUSH 01/17/19 14:59 ONCE ONE Heparin Sodium (Porcine) 1,000 unit 01/11/19 15:06 Heparin - IVPUSH PRN PRN Heparin Heparin Sodium (Porcine) 5,000 unit 01/11/19 15:06 Heparin - IVPUSH PRN PRN Heparin Heparin Sodium/Dextrose 25,000 units in 500 mls @ 20 mls/hr 01/11/19 15:06 16:03 Heparin Infusion - IV Not Given TITR [facility] Protocol 1,000 UNITS/HR Sodium Chloride 250 mls @ 3,000 mls/hr 01/15/19 17:31 Normal Saline - IV 01/16/19 17:30 PRN PRN Hypotension during Dialysis Sodium Chloride 250 mls @ 3,000 mls/hr 01/16/19 14:58 Normal Saline - IV 01/17/19 14:58 PRN PRN Hypotension during Dialysis Rosuvastatin Calcium 5 mg 01/11/19 22:00 01/15/19 21:11 Crestor - PO 5 mg HS [facility] Administration Warfarin Sodium 5 mg 01/11/19 18:00 01/15/19 17:29 Coumadin - PO Not Given DAILY@1800 [facility] ASSESSMENT/PLAN: This is a 88 year old male with a history of CAD s/p CABG, s/p PCI/LUIS EDUARDO , persistent atrial fibrillation, diastolic congestive heart failure, HTN, carotid stenosis who presented with worsening SON, orthopnea, b/l leg edema, found to be in acute heart failure. #Acute on chronic diastolic heart failure -s/p chest tube; f/u fluid analysis -daily weights, strict I/Os; christina in place -cardio , renal -HD; #Acute hypoxic respiratory failure - sec to vol overload; off high flow; s/p chest tube; now on NC #Atrial fibrillation -rate controlled -heparin GGT; on hold; platelets 50 #Acute on chronic kidney disease; permacath -HD s -cardio; renal vs sec to hypotension; -urine lytes -stirct i/os -ua, uc #Macrocytic Anemia; monitor for acute bleed; stable -stool for acute blood negative -s/p 1UPRBC -vit b12, foalte wnl; iron studies low #thrombocytopenia: platelets 80s; now in 50s; HOLD AC -congestive changes vs reactive vs HIT?; ; ITP? liver dz? -abdominal US +hepatomegaly; with mild splenomegaly #hypokalemia; -replace #hyperphosphetema; sec renal failure -hd; phos lo #UTI: -completed antibiotics course #COPD -; cont IH bronchodilators #HTN -hold home meds; #HLD -statin Dispo: ICU monitoring Visit type - Emergency Visit Emergency Visit: Yes ED Registration Date: 12/30/18 Care time: The patient presented to the Emergency Department on the above date and was hospitalized for further evaluation of their emergent condition. - New Patient This patient is new to me today: No - Critical Care Critical Care patient: Yes Total Critical Care Time (in minutes): 35 Critical Care Statement: The care of this patient involved high complexity decision making to prevent further life threatening deterioration of the patient 's condition and/or to evaluate & treat vital organ system(s) failure or risk of failure.
[2019-01-16] MEDS: HEPARIN INFUSION - 25,000 UNITS/500 ML INFUS.BAG IV SCH (17:06)
[2019-01-16] MEDS: WARFARIN NA 5 MG TABLET (UD) PO SCH (17:09)
--- NOTE | 2019-01-16 17:15 | PATH ---
Cytology Non-Gynecological Report Patient Name: MALIA ALANIS Med. Rec. #: [id number] /Age/Gender: 1930 (Age: 88) / M Account: [id number] Location: ICU [facility]OU[facility] OPERATOR Taken: 01/13/2019 Received: 01/15/2019 Reported: 01/16/2019 Physicians: Shadi Robertson M.D. Specimen(s) Received PLEURAL FLUID Clinical History Pleural effusion, evaluate for malignant effusion Final Diagnosis PLEURAL FLUID, THORACENTESIS: SATISFACTORY FOR EVALUATION. NO MALIGNANT CELLS IDENTIFIED. MESOTHELIAL CELLS AND LYMPHOCYTES PRESENT. Comment: Recommend correlation with clinical findings and follow up as clinically indicated. Electronically Signed Aundrea Barreto M.D. Gross Description Approximately 40 cc of yellow fluid received fixed in 50% alcohol. One cytofunnel prepared and Pap stained. One cellblock prepared.
--- NOTE | 2019-01-16 20:33 | PN ---
Progress Note (short form) - Note Progress Note: Patient seen and examined Not in distress AFVSS Cor: RSR, No murmurs, No gallops Lungs: Clear to P&A Abd: Soft, Normal bowel sounds, No organomegaly Ext:No significant edema Labs/Meds reviewed A/P 88 y/o patient with CHF Thrombocytopenia -- drop in platelets prior to heparin exposure , hence HIT unlikely Most likely due to consumptive physiology
[2019-01-16] MEDS ORDERED: PT OWN MED DRAWER 7, Y5N ONE (21:04)
[2019-01-16] MEDS: ROSUVASTATIN CA 5 MG TABLET (FP) PO SCH (21:57)
[2019-01-16] MEDS: CHLORHEXIDINE GLUCONATE 4% CLEANSER FOR DECOLONIZATION TP SCH (21:59)
[2019-01-17 06:27] LABS: HEMOGLOBIN 8.3 GM/dL (11.7-16.9); MCH 32.2 pg (25.7-33.7); MCHC 33.2 g/dl (32.0-35.9); MEAN CELL VOLUME 96.9 fl (80-96); PLATELET COUNT 79 K/MM3 (134-434); RBC 2.58 M/mm3 (4.00-5.60); RDW 16.3 % (11.9-15.9); WHITE BLOOD COUNT 5.1 K/mm3 (4.0-10.0)
[2019-01-17 06:46] LABS: ANION GAP 9 MMOL/L (8-16); BLOOD UREA NITROGEN 43 mg/dL (7-18); CALCIUM 7.8 mg/dL (8.5-10.1); CHLORIDE 105 mmol/L (98-107); CO2 29 mmol/L (21-32); CREATININE 4.5 mg/dL (0.55-1.3); GLUCOSE,RANDOM 87 mg/dL (74-106); MAGNESIUM 1.8 mg/dL (1.8-2.4); PHOSPHOROUS 4.3 mg/dL (2.5-4.9); POTASSIUM 3.3 mmol/L (3.5-5.1); SODIUM 143 mmol/L (136-145)
[2019-01-17] MEDS ORDERED: MAGNESIUM SULF 50% (8.12 MEQ/2 ML-1 GM VIAL) IVPB ONE (07:40)
[2019-01-17] MEDS ORDERED: SODIUM CHLORIDE 250 ML IV PRN (08:00)
[2019-01-17] MEDS ORDERED: EPOETIN ALFA 3,000 UNIT, EPOETIN ALFA 2,000 UNIT IVPUSH ONE (08:00)
[2019-01-17] MEDS: ALBUMIN HUMAN 25% 12.5 GM/50 ML VIAL IVPB SCH ×4 (08:00→09:36)
--- NOTE | 2019-01-17 08:17 | PN ---
Physical Exam: SUBJECTIVE: Patient seen and examined this AM. He states he is feeling well and tolerating the nasal cannula well without any respiratory distress overnight. OBJECTIVE: Vital Signs Period Temp Pulse Resp BP Sys/Ascencio Pulse Ox Last 24 Hr 98 F-98.4 F 46-73 22-30 91-112/41-66 92-100 GEN: A&O, no acute distress HEENT: PERRL, moist mucus membranes NECK: Supple, no lymphadenopathy HEART: RRR, no murmurs noted LUNGS: CTA b/l, decreased breath sounds on the right, left chest tube in place ABDOMEN: Soft, nontender, normoactive bowel sounds EXTREMITIES: no edema seen in b/l LE, no calf tenderness noted Laboratory Results - last 24 hr 01/13/19 01/17/19 01/17/19 15:30 05:30 05:30 WBC 5.1 RBC 2.58 L Hgb 8.3 L Hct 25.0 L MCV 96.9 H MCH 32.2 MCHC 33.2 RDW 16.3 H Plt Count 79 L D MPV 9.0 D Sodium 143 Potassium 3.3 L Chloride 105 Carbon Dioxide 29 Anion Gap 9 BUN 43 H Creatinine 4.5 H Creat Clearance w eGFR 12.40 Random Glucose 87 Calcium 7.8 L Phosphorus 4.3 Magnesium 1.8 Fluid Cholesterol 19 Active Medications Generic Name Dose Route Start Last Admin Trade Name Freq PRN Reason Stop Dose Admin Albumin Human 12.5 gm 01/17/19 08:00 Albumin Human 25% IVPB 01/17/19 09:31 Q30M JAYCE Artificial Tears 1 drop 01/11/19 15:06 01/12/19 22:35 Artificial Tears OU 1 drop TID PRN Administration DRY EYES Chlorhexidine Gluconate 1 applic 01/10/19 22:00 01/16/19 21:59 Hibiclens For Decolonization - TP 1 applic HS JAYCE Administration Heparin Sodium (Porcine) 1,000 unit 01/11/19 15:06 Heparin - IVPUSH PRN PRN Heparin Heparin Sodium (Porcine) 5,000 unit 01/11/19 15:06 Heparin - IVPUSH PRN PRN Heparin Heparin Sodium/Dextrose 25,000 units in 500 mls @ 20 mls/hr 01/11/19 15:06 17:06 Heparin Infusion - IV Not Given TITR JAYCE Protocol 1,000 UNITS/HR Rosuvastatin Calcium 5 mg 01/11/19 22:00 01/16/19 21:57 Crestor - PO 5 mg HS JAYCE Administration Warfarin Sodium 5 mg 01/11/19 18:00 01/16/19 17:09 Coumadin - PO Not Given DAILY@1800 [facility] ASSESSMENT/PLAN: Patient is an 88 year old male who presented for worsening shortness of breath and was found to have CHF exacerbation with hypotension. Patient admitted to ICU for further monitoring and management. NEURO -Awake, Alert and oriented -On no sedation PULMONARY #Acute Hypoxic Respiratory Failure -Likely ATN without recovery of renal function and inadequate diuresis -Requiring High Flow O2 for pressure support and respiratory status, attempt to wean as able -Did not respond to lasix IV or drip, requiring HD for fluid removal at this time -Renal and bladder US without any signs of obstruction -Strict I&O's -Daily weights -Cardiology consult appreciated -Still with effusion on CXR SOB and tachypnea on HF, Left chest tube 01/13, still with >600 cc overnight #COPD -No acute exacerbation -Albuterol nebulizer PRN -Maintain 02 Saturation >90% CARDIOLOGY #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 -Likely Cardio-Renal Syndrome -Repeat ECHO with normal EF, dilated RV and RA -Off pressors -Low sodium -Lester placed for strict I&O's -Daily weights -Hold B-mukesh until more hemodynamically stable #Permanent atrial fibrillation -[id number] -Warfarin, monitor INR #CAD s/p CABG -s/p PCI/LUIS EDUARDO to LAD -Continue Rosuvastatin, ASA and BB as hemodynamically tolerates -Maintain Hgb > 8 #HTN -Hold anti-htn medications as patient remains hypotensive #HLD -Continue home Crestor NEPHROLOGY #ANGELA on CKD -Likely ATN -Baseline around 1.5 -Kidney/Bladder U/S without signs of obstruction -Avoid nephrotoxic medications -Renally dose medications -Will hold CAROLNY/ARB for now -Nephrology consult appreciated -Monitor BMP -Requiring dialysis and chest tube for volume removal -Permacath placed 01/10 INFECTIOUS DISEASE #UTI - Resolved -Completed course of Rocephin -Urine culture grew Enterococcus HEMATOLOGY #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 -Repeat US with mildly enlarged spleen, normal splenic size on 3/27 -HIT Ab pending F/E/N -None -Monitor and correct as needed with likely with dialysis -Renal Diet Prophylaxis -Heparin drip held for low platelets, restart warfarin pending primary team plan upon transfer -No GI required LINES -Permacath placed 01/10 -Left chest tube placed 01/13 Disposition -Full code -Stable for transfer to telemetry Visit type - Emergency Visit Emergency Visit: Yes ED Registration Date: 12/30/18 Care time: The patient presented to the Emergency Department on the above date and was hospitalized for further evaluation of their emergent condition. - New Patient This patient is new to me today: No - Critical Care Critical Care patient: Yes Total Critical Care Time (in minutes): 36 Critical Care Statement: The care of this patient involved high complexity decision making to prevent further life threatening deterioration of the patient 's condition and/or to evaluate & treat vital organ system(s) failure or risk of failure.
[2019-01-17 08:36] LABS: INR 1.91 (0.83-1.09); PROTHROMBIN TIME (PATIENT) 22.7 SEC (9.7-13.0)
[2019-01-17] MEDS ORDERED: PT OWN MED DRAWER 7, Y5N ONE (09:37)
--- NOTE | 2019-01-17 11:52 | PN ---
Progress Note (short form) - Note Progress Note: Patient seen and examined Offers no specific complaints on ROS Last Vital Signs Temp Pulse Resp BP Pulse Ox 98.2 F 60 18 109/49 L 95 01/17/19 06:50 01/17/19 10:11 01/17/19 10:11 01/17/19 10:11 01/17/19 10:07 HEENT: [place], EOM Intact Cor: atrial fib No murmurs, No gallops Lungs: bronchial breath sounds and expiratory wheezes LLL Abd: Soft, Normal bowel sounds, No organomegaly, mild distension Ext:No significant edema, stasis changes Skin: No rashes, Integument intact CBC, BMP 01/17/19 05:30 01/17/19 05:30 Current Medications Generic Name Dose Route Start Last Admin Trade Name Freq PRN Reason Stop Dose Admin Artificial Tears 1 drop 01/11/19 15:06 01/12/19 22:35 Artificial Tears OU 1 drop TID PRN Administration DRY EYES Chlorhexidine Gluconate 1 applic 01/10/19 22:00 01/16/19 21:59 Hibiclens For Decolonization - TP 1 applic HS JAYCE Administration Heparin Sodium (Porcine) 1,000 unit 01/11/19 15:06 Heparin - IVPUSH PRN PRN Heparin Heparin Sodium (Porcine) 5,000 unit 01/11/19 15:06 Heparin - IVPUSH PRN PRN Heparin Heparin Sodium/Dextrose 25,000 units in 500 mls @ 20 mls/hr 01/11/19 15:06 17:06 Heparin Infusion - IV Not Given TITR [facility] Protocol 1,000 UNITS/HR Rosuvastatin Calcium 5 mg 01/11/19 22:00 01/16/19 21:57 Crestor - PO 5 mg HS JAYCE Administration Warfarin Sodium 5 mg 01/11/19 18:00 01/16/19 17:09 Coumadin - PO Not Given DAILY@1800 [facility] Impression: CHF Atrial fib Anemia Thrombocytopenia HPL Increased platelets- etiology ? congestion with mild secondary hypersplenism Anemia--transfuse for Hb< 8 gm Continue to monitor
--- NOTE | 2019-01-17 11:56 | PN ---
Progress Note, Physician History of Present Illness: O2 requirement weaned to NC, hemodynamics stable, tolerated HD via PC. Left chest tube in place. Toprol held for bradycardia and hypotension. - Current Medication List Current Medications: Active Medications Artificial Tears (Artificial Tears) 1 drop OU TID PRN PRN Reason: DRY EYES Last Admin: 01/12/19 22:35 Dose: 1 drop Chlorhexidine Gluconate (Hibiclens For Decolonization -) 1 applic TP HS [facility] Last Admin: 01/16/19 21:59 Dose: 1 applic Heparin Sodium (Porcine) (Heparin -) 1,000 unit IVPUSH PRN PRN PRN Reason: Heparin Heparin Sodium (Porcine) (Heparin -) 5,000 unit IVPUSH PRN PRN PRN Reason: Heparin Heparin Sodium/Dextrose (Heparin Infusion -) 25,000 units in 500 mls @ 20 mls/ hr IV TITR JAYCE; Protocol Last Admin: 01/16/19 17:06 Dose: Not Given Rosuvastatin Calcium (Crestor -) 5 mg PO HS [facility] Last Admin: 01/16/19 21:57 Dose: 5 mg Warfarin Sodium (Coumadin -) 5 mg PO DAILY@1800 JAYCE Last Admin: 01/16/19 17:09 Dose: Not Given - Objective Vital Signs: Vital Signs Temperature 98.2 F 01/17/19 06:50 Pulse Rate 60 01/17/19 10:11 Respiratory Rate 18 01/17/19 10:11 Blood Pressure 109/49 L 01/17/19 10:11 O2 Sat by Pulse Oximetry (%) 95 01/17/19 10:07 Constitutional: Yes: No Distress, Calm Neck: Yes: Supple Cardiovascular: Yes: Pulse Irregular Respiratory: Yes: Regular, Diminished, On Nasal O2, Other (Left chest tube in) Gastrointestinal: Yes: Normal Bowel Sounds, Soft Edema: No Labs: CBC, BMP 01/17/19 05:30 01/17/19 05:30 INR, PTT INR 1.91 (0.83-1.09) H 01/17/19 05:30 - ....Imaging Chest X-ray: Report Reviewed (R>L effusions) Problem List - Problems (1) [id number] kidney injury Code(s): N17.9 - ACUTE KIDNEY FAILURE, UNSPECIFIED; N18.9 - CHRONIC KIDNEY DISEASE, UNSPECIFIED Qualifiers: Acute renal failure type: unspecified Chronic kidney disease stage: unspecified stage Qualified Code(s): N17.9 - Acute kidney failure, unspecified ; N18.9 - Chronic kidney disease, unspecified (2) Acute on chronic diastolic (congestive) heart failure Code(s): I50.33 - ACUTE ON CHRONIC DIASTOLIC (CONGESTIVE) HEART FAILURE (3) CAD (coronary artery disease) Code(s): I25.10 - ATHSCL HEART DISEASE OF [place] CORONARY ARTERY W/O ANG PCTRS Qualifiers: Coronary Disease-Associated Artery/Lesion type: [place] artery [place] vs. transplanted heart: [place] heart Associated angina: without angina Qualified Code(s): I25.10 - Atherosclerotic heart disease of [place] coronary artery without angina pectoris (4) COPD (chronic obstructive pulmonary disease) Code(s): J44.9 - CHRONIC OBSTRUCTIVE PULMONARY DISEASE, UNSPECIFIED Qualifiers: COPD type: unspecified COPD Qualified Code(s): J44.9 - Chronic obstructive pulmonary disease, unspecified (5) Chronic anemia Code(s): D64.9 - ANEMIA, UNSPECIFIED (6) Chronic anticoagulation Code(s): Z79.01 - CUSTODIAL (CURRENT) USE OF ANTICOAGULANTS (7) HTN (hypertension) Code(s): I10 - ESSENTIAL (PRIMARY) HYPERTENSION Qualifiers: Hypertension type: essential hypertension Qualified Code(s): I10 - Essential (primary) hypertension (8) Hx of CABG Code(s): Z95.1 - PRESENCE OF AORTOCORONARY BYPASS GRAFT (9) SOB (shortness of breath) Code(s): R06.02 - SHORTNESS OF BREATH (10) Status post insertion of drug-eluting stent into left anterior descending ( LAD) artery Code(s): Z95.5 - PRESENCE OF CORONARY ANGIOPLASTY IMPLANT AND GRAFT (11) Anemia Code(s): D64.9 - ANEMIA, UNSPECIFIED Qualifiers: Anemia type: unspecified type Qualified Code(s): D64.9 - Anemia, unspecified (12) Atrial fibrillation Code(s): I48.91 - UNSPECIFIED ATRIAL FIBRILLATION Qualifiers: Atrial fibrillation type: permanent Qualified Code(s): I48.2 - Chronic atrial fibrillation (13) Hyperlipidemia Code(s): E78.5 - HYPERLIPIDEMIA, UNSPECIFIED Qualifiers: Hyperlipidemia type: pure hypercholesterolemia Qualified Code(s): E78.00 - Pure hypercholesterolemia, unspecified; E78.0 - Pure hypercholesterolemia (14) Subendocardial ischemia Code(s): I24.8 - OTHER FORMS OF ACUTE ISCHEMIC HEART DISEASE Assessment/Plan 12/31/2018 Echo: Normal LV size and fxn LVEF 60%, mod dilated RV with mild decreased RV fxn, mild-mod AUTUMN, mild MR, mod TR RVSP 31 mmHg 1. Acute Hypoxic Respiratory Failure 2. Acute on chronic diastolic heart failure with pleural effusion post left chest tube drainage 3. CAD post CABG/PCI (stent) evidence of demand ischemia angina pectoris 4. Persistent atrial fibrillation [id number] score of 5 on Coumadin therapy with therapeutic INR 5. Hypertension 6. Hypercholesterolemia 7. MR mild to moderate in severity 8. TR moderate in severity 9. Carotid stenosis, moderate in severity 10. COPD 11. Acute on chronic kidney disease, initiated HD via PC 12. Anemia, thrombocytopenia due to consumption PLAN: 1. Ideally resume Toprol XL 12.5 qd as hemodynamics permitting 2. Ideally should be on ACEI or ARBS, pending renal function stabilization or HD initiation, replete K 3. Continue Crestor 5 qhs 4. D/c Heparin gtt, hold coumadin pending right chest tube placement 5. HD via PC per renal service, with monitor urine output, creatinine 6. FIO2 to keep SpO2 >90%, right chest tube drainage planned once INR acceptable
--- NOTE | 2019-01-17 12:22 | PN ---
Teaching Attending Note Name of Resident: Venancio Combs ATTENDING PHYSICIAN STATEMENT I saw and evaluated the patient. I reviewed the resident's note and discussed the case with the resident. I agree with the resident's findings and plan as documented. SUBJECTIVE: Patient seen and examined in the ICU. Awake and alert on NC O2. Reports feeling overall better. Significant drainage from the left pigtail. CXR: Increasing effusion on the right / improved left effusion OBJECTIVE: Intake & Output 01/14/19 01/15/19 01/16/19 01/17/19 23:59 23:59 23:59 23:59 Intake Total 808 860 660 Output Total 005 194 7608 650 Balance 448 400 -525 -650 Weight 188 lb 14.4 oz 184 lb 3.2 oz 180 lb 8 oz 183 lb 6.793 oz Last Vital Signs Temp Pulse Resp BP Pulse Ox 98.2 F 60 18 109/49 L 95 01/17/19 06:50 01/17/19 10:11 01/17/19 10:11 01/17/19 10:11 01/17/19 10:07 Active Medications Artificial Tears (Artificial Tears) 1 drop OU TID PRN PRN Reason: DRY EYES Last Admin: 01/12/19 22:35 Dose: 1 drop Chlorhexidine Gluconate (Hibiclens For Decolonization -) 1 applic TP HS JAYCE Last Admin: 01/16/19 21:59 Dose: 1 applic Heparin Sodium (Porcine) (Heparin -) 1,000 unit IVPUSH PRN PRN PRN Reason: Heparin Heparin Sodium (Porcine) (Heparin -) 5,000 unit IVPUSH PRN PRN PRN Reason: Heparin Heparin Sodium/Dextrose (Heparin Infusion -) 25,000 units in 500 mls @ 20 mls/ hr IV TITR JAYCE; Protocol Last Admin: 01/16/19 17:06 Dose: Not Given Rosuvastatin Calcium (Crestor -) 5 mg PO HS JAYCE Last Admin: 01/16/19 21:57 Dose: 5 mg Warfarin Sodium (Coumadin -) 5 mg PO DAILY@1800 JAYCE Last Admin: 01/16/19 17:09 Dose: Not Given Gen: Awake and alert, less tachypneic Heart: RRR Lung: Right sided rales, decreased breath sounds on the left, left pigtail Abd: soft, nontender Ext: no edema Laboratory Results - last 24 hr 01/13/19 01/17/19 01/17/19 15:30 05:30 05:30 WBC 5.1 RBC 2.58 L Hgb 8.3 L Hct 25.0 L MCV 96.9 H MCH 32.2 MCHC 33.2 RDW 16.3 H Plt Count 79 L D MPV 9.0 D PT with INR INR Sodium 143 Potassium 3.3 L Chloride 105 Carbon Dioxide 29 Anion Gap 9 BUN 43 H Creatinine 4.5 H Creat Clearance w eGFR 12.40 Random Glucose 87 Calcium 7.8 L Phosphorus 4.3 Magnesium 1.8 Fluid Total Protein 2.0 Fluid Cholesterol 19 01/17/19 05:30 WBC RBC Hgb Hct MCV MCH MCHC RDW Plt Count MPV PT with INR 22.70 H INR 1.91 H Sodium Potassium Chloride Carbon Dioxide Anion Gap BUN Creatinine Creat Clearance w eGFR Random Glucose Calcium Phosphorus Magnesium Fluid Total Protein Fluid Cholesterol ASSESSMENT AND PLAN: Acute Hypoxic Respiratory Failure Acute on Chronic Diastolic Heart Failure Volume Overload Atrial Fibrillation Acute on Chronic Renal Failure requiring HD COPD Anemia Hypercholesterolemia Thrombocytopenia - HD per renal with ultrafiltration - holding anticoagulation - May require placement of left sided chest tube when coags/platelets improve - daily weights - O2 to keep SpO2 >90% - rate control - Cardiac and Oximetry monitoring Dr Guevara
--- NOTE | 2019-01-17 13:38 | PN ---
Progress Note (short form) - Note Progress Note: covering dr robles Problems 1. ANGELA 2. CKD 3. CHF 4. hypotension 5. resp failure requiring bipap 6. a-fib 7. hld 8. bilateral pleural effusions 9. anemia 10. hypokalemia Current Medications Artificial Tears (Artificial Tears) 1 drop OU TID PRN PRN Reason: DRY EYES Last Admin: 01/12/19 22:35 Dose: 1 drop Chlorhexidine Gluconate (Hibiclens For Decolonization -) 1 applic TP HS JAYCE Last Admin: 01/16/19 21:59 Dose: 1 applic Heparin Sodium (Porcine) (Heparin -) 1,000 unit IVPUSH PRN PRN PRN Reason: Heparin Heparin Sodium (Porcine) (Heparin -) 5,000 unit IVPUSH PRN PRN PRN Reason: Heparin Heparin Sodium/Dextrose (Heparin Infusion -) 25,000 units in 500 mls @ 20 mls/ hr IV TITR JAYCE; Protocol Last Admin: 01/16/19 17:06 Dose: Not Given Rosuvastatin Calcium (Crestor -) 5 mg PO HS JAYCE Last Admin: 01/16/19 21:57 Dose: 5 mg Warfarin Sodium (Coumadin -) 5 mg PO DAILY@1800 JAYCE Last Admin: 01/16/19 17:09 Dose: Not Given Last Vital Signs Temp Pulse Resp BP Pulse Ox 98 F 66 22 H 109/85 95 01/17/19 10:00 01/17/19 12:00 01/17/19 12:00 01/17/19 12:00 01/17/19 10:07 alert in nad s/p hemodialysisi treatment was uneventful Lungs clear heart reg Abd soft nontender ext no edema CBC, BMP 01/17/19 05:30 01/17/19 05:30 Plan maintenance HD
[2019-01-17] MEDS: HEPARIN INFUSION - 25,000 UNITS/500 ML INFUS.BAG IV SCH (14:46)
[2019-01-17] MEDS ORDERED: EPOETIN ALFA 2,000 UNIT/1 ML VIAL IVPUSH ONE (14:58)
[2019-01-17] MEDS: WARFARIN NA 5 MG TABLET (UD) PO SCH (18:10)
--- NOTE | 2019-01-17 19:06 | PN ---
Physical Exam: SUBJECTIVE: Patient seen and examined; on ND; CXR worsening right lung field; OBJECTIVE: Vital Signs Period Temp Pulse Resp BP Sys/Ascencio Pulse Ox Last 24 Hr 98 F-98.5 F 50-74 18-30 90-112/38-85 92-100 GENERAL: The patient is awake, alert, and fully oriented, in no acute distress. LUNGS:decreased r breath sounds HEART: Regular rate and rhythm, S1, S2 without murmur, rub or gallop. ABDOMEN: Soft, nontender, nondistended, normoactive bowel sounds, no guarding, no rebound, no hepatosplenomegaly, no masses. EXTREMITIES: 2+ pulses, warm, well-perfused, no edema. NEUROLOGICAL: Cranial nerves II through XII grossly intact. Normal speech, gait not Laboratory Results - last 24 hr 01/13/19 01/14/19 01/17/19 15:30 17:20 05:30 WBC 5.1 RBC 2.58 L Hgb 8.3 L Hct 25.0 L MCV 96.9 H MCH 32.2 MCHC 33.2 RDW 16.3 H Plt Count 79 L D MPV 9.0 D PT with INR INR Sodium Potassium Chloride Carbon Dioxide Anion Gap BUN Creatinine Creat Clearance w eGFR Random Glucose Calcium Phosphorus Magnesium Fluid Total Protein 2.0 Heparin-Ind Plt Ab Scrn 0.289 01/17/19 01/17/19 05:30 05:30 WBC RBC Hgb Hct MCV MCH MCHC RDW Plt Count MPV PT with INR 22.70 H INR 1.91 H Sodium 143 Potassium 3.3 L Chloride 105 Carbon Dioxide 29 Anion Gap 9 BUN 43 H Creatinine 4.5 H Creat Clearance w eGFR 12.40 Random Glucose 87 Calcium 7.8 L Phosphorus 4.3 Magnesium 1.8 Fluid Total Protein Heparin-Ind Plt Ab Scrn Active Medications Generic Name Dose Route Start Last Admin Trade Name Freq PRN Reason Stop Dose Admin Artificial Tears 1 drop 01/11/19 15:06 01/12/19 22:35 Artificial Tears OU 1 drop TID PRN Administration DRY EYES Chlorhexidine Gluconate 1 applic 01/10/19 22:00 01/16/19 21:59 Hibiclens For Decolonization - TP 1 applic HS JAYCE Administration Rosuvastatin Calcium 5 mg 01/11/19 22:00 01/16/19 21:57 Crestor - PO 5 mg HS JAYCE Administration Warfarin Sodium 5 mg 01/11/19 18:00 01/17/19 18:10 Coumadin - PO 5 mg DAILY@1800 JAYCE Administration ASSESSMENT/PLAN: This is a 88 year old male with a history of CAD s/p CABG, s/p PCI/LUIS EDUARDO , persistent atrial fibrillation, diastolic congestive heart failure, HTN, carotid stenosis who presented with worsening SON, orthopnea, b/l leg edema, found to be in acute heart failure. #Acute on chronic diastolic heart failure -s/p chest tube; f/u fluid analysis -daily weights, strict I/Os; christina in place -cardio , renal -HD; #Acute hypoxic respiratory failure - sec to vol overload; off high flow; s/p chest tube; now on NC -right sided effusion; possible chest tube when platelets improve #Atrial fibrillation -rate controlled -heparin GGT; on hold; platelets 50 #Acute on chronic kidney disease; permacath -HD s -cardio; renal vs sec to hypotension; -urine lytes -stirct i/os -ua, uc #Macrocytic Anemia; monitor for acute bleed; stable -stool for acute blood negative -s/p 1UPRBC -vit b12, foalte wnl; iron studies low #thrombocytopenia: platelets 80s; now in 50s; HOLD AC -congestive changes vs reactive vs HIT?; ; ITP? liver dz? -abdominal US +hepatomegaly; with mild splenomegaly #hypokalemia; -replace #hyperphosphetema; sec renal failure -hd; phos lo #UTI: -completed antibiotics course #COPD -; cont IH bronchodilators #HTN -hold home meds; #HLD -statin Dispo: ICU monitoring Visit type - Emergency Visit Emergency Visit: Yes ED Registration Date: 12/30/18 Care time: The patient presented to the Emergency Department on the above date and was hospitalized for further evaluation of their emergent condition. - New Patient This patient is new to me today: No - Critical Care Critical Care patient: Yes Total Critical Care Time (in minutes): 35 Critical Care Statement: The care of this patient involved high complexity decision making to prevent further life threatening deterioration of the patient 's condition and/or to evaluate & treat vital organ system(s) failure or risk of failure.
--- NOTE | 2019-01-17 19:11 | PN ---
Teaching Attending Note Name of Resident: Ernestina Hodges ATTENDING PHYSICIAN STATEMENT I saw and evaluated the patient. I reviewed the resident's note and discussed the case with the resident. I agree with the resident's findings and plan as documented. SUBJECTIVE: Mr Aleman is without complaint. Denies cp, sob, n/v OBJECTIVE: Last Vital Signs Temp Pulse Resp BP Pulse Ox 36.9 C 54 L 29 H 97/44 L 100 01/17/19 14:00 01/17/19 20:00 01/17/19 20:00 01/17/19 20:00 01/17/19 20:52 Gen: nad Pulm: R sided ronchi CV: rrr / 11/20 SOFIE Abd: +bs, s/nt/nd Ext: 1+ pitting edema CBC, BMP 01/17/19 05:30 01/17/19 05:30 ASSESSMENT AND PLAN: (1) Acute on chronic diastolic (congestive) heart failure Assessment/Plan: -on NC today -HD per nephrology -chest tube in place Code(s): I50.33 - ACUTE ON CHRONIC DIASTOLIC (CONGESTIVE) HEART FAILURE (2) Jyqax-kc-efkfcwn kidney injury Assessment/Plan: -continue HD Code(s): N17.9 - ACUTE KIDNEY FAILURE, UNSPECIFIED; N18.9 - CHRONIC KIDNEY DISEASE, UNSPECIFIED Qualifiers: Acute renal failure type: unspecified Chronic kidney disease stage: unspecified stage Qualified Code(s): N17.9 - Acute kidney failure, unspecified ; N18.9 - Chronic kidney disease, unspecified (3) Pleural effusion Assessment/Plan: -chest tube in place -R sided chest tube not placed secondary to thrombocytopenia -however breathing improved -CXR still significant -however oxygenation improving -continue to monitor Code(s): T45.511A - POISONING BY ANTICOAGULANTS, ACCIDENTAL, INIT (4) CAD (coronary artery disease) Assessment/Plan: -quiescent -cardiology following Code(s): I25.10 - ATHSCL HEART DISEASE OF [place] CORONARY ARTERY W/O ANG PCTRS Qualifiers: Coronary Disease-Associated Artery/Lesion type: [place] artery [place] vs. transplanted heart: [place] heart Associated angina: without angina Qualified Code(s): I25.10 - Atherosclerotic heart disease of [place] coronary artery without angina pectoris (5) COPD (chronic obstructive pulmonary disease) Assessment/Plan: -not in exacerbation -pulmonary following Code(s): J44.9 - CHRONIC OBSTRUCTIVE PULMONARY DISEASE, UNSPECIFIED Qualifiers: COPD type: unspecified COPD Qualified Code(s): J44.9 - Chronic obstructive pulmonary disease, unspecified (6) Chronic anemia Assessment/Plan: -stable Code(s): D64.9 - ANEMIA, UNSPECIFIED (7) HTN (hypertension) Assessment/Plan: -well controlled Code(s): I10 - ESSENTIAL (PRIMARY) HYPERTENSION Qualifiers: Hypertension type: essential hypertension Qualified Code(s): I10 - Essential (primary) hypertension (8) Pulmonary hypertension Assessment/Plan: -noted Code(s): I27.2 - OTHER SECONDARY PULMONARY HYPERTENSION * DO NOT USE * (9) Atrial fibrillation Assessment/Plan: -controlled -heparin gtt stopped secondary to thrombocytopenia Code(s): I48.91 - UNSPECIFIED ATRIAL FIBRILLATION Qualifiers: Atrial fibrillation type: permanent Qualified Code(s): I48.2 - Chronic atrial fibrillation (10) Hyperlipidemia Assessment/Plan: -crestor Code(s): E78.5 - HYPERLIPIDEMIA, UNSPECIFIED Qualifiers: Hyperlipidemia type: pure hypercholesterolemia Qualified Code(s): E78.00 - Pure hypercholesterolemia, unspecified; E78.0 - Pure hypercholesterolemia (11) Acute on chronic hypoxic respiratory failure -weaning oxygen as tolerated -now on [place] Problem List - Problems (1) Acute on chronic diastolic (congestive) heart failure Code(s): I50.33 - ACUTE ON CHRONIC DIASTOLIC (CONGESTIVE) HEART FAILURE (2) Tnzkv-jv-estdapr kidney injury Code(s): N17.9 - ACUTE KIDNEY FAILURE, UNSPECIFIED; N18.9 - CHRONIC KIDNEY DISEASE, UNSPECIFIED Qualifiers: Acute renal failure type: unspecified Chronic kidney disease stage: unspecified stage Qualified Code(s): N17.9 - Acute kidney failure, unspecified ; N18.9 - Chronic kidney disease, unspecified (3) Warfarin toxicity Code(s): T45.511A - POISONING BY ANTICOAGULANTS, ACCIDENTAL, INIT (4) CAD (coronary artery disease) Code(s): I25.10 - ATHSCL HEART DISEASE OF [place] CORONARY ARTERY W/O ANG PCTRS Qualifiers: Coronary Disease-Associated Artery/Lesion type: [place] artery [place] vs. transplanted heart: [place] heart Associated angina: without angina Qualified Code(s): I25.10 - Atherosclerotic heart disease of [place] coronary artery without angina pectoris (5) COPD (chronic obstructive pulmonary disease) Code(s): J44.9 - CHRONIC OBSTRUCTIVE PULMONARY DISEASE, UNSPECIFIED Qualifiers: COPD type: unspecified COPD Qualified Code(s): J44.9 - Chronic obstructive pulmonary disease, unspecified (6) Chronic anemia Code(s): D64.9 - ANEMIA, UNSPECIFIED (7) HTN (hypertension) Code(s): I10 - ESSENTIAL (PRIMARY) HYPERTENSION Qualifiers: Hypertension type: essential hypertension Qualified Code(s): I10 - Essential (primary) hypertension (8) Pulmonary hypertension Code(s): I27.2 - OTHER SECONDARY PULMONARY HYPERTENSION * DO NOT USE * (9) Atrial fibrillation Code(s): I48.91 - UNSPECIFIED ATRIAL FIBRILLATION Qualifiers: Atrial fibrillation type: permanent Qualified Code(s): I48.2 - Chronic atrial fibrillation (10) Hyperlipidemia Code(s): E78.5 - HYPERLIPIDEMIA, UNSPECIFIED Qualifiers: Hyperlipidemia type: pure hypercholesterolemia Qualified Code(s): E78.00 - Pure hypercholesterolemia, unspecified; E78.0 - Pure hypercholesterolemia
[2019-01-17] MEDS ORDERED: ARTIFICIAL TEARS (POLYVINYL ALCOHOL) OPTH DROPS OU PRN (20:23)
[2019-01-17] MEDS ORDERED: HEPARIN NA (PORCINE) 5,000 UNITS/ML 1ML VIAL IVPUSH PRN ×2 (20:23)
[2019-01-17] MEDS: ROSUVASTATIN CA 5 MG TABLET (FP) PO SCH (21:37)
[2019-01-18] MEDS ORDERED: POTASSIUM CHLORIDE TABS 20 MEQ TABLET.ER (FP) PO ONE (08:15)
--- NOTE | 2019-01-18 09:44 | PN ---
Progress Note, Physician History of Present Illness: Renal F/U Pt in no distress sitting up in bed and eating breakfast and reading a newspaper Had uneventful HD yesterday Has A Fib with slow HRs and K was borderline low yesterday so K 3 bath used He believes he is urinating more today - Current Medication List Current Medications: Active Medications Artificial Tears (Artificial Tears) 1 drop OU Q8H PRN PRN Reason: DRY EYES Rosuvastatin Calcium (Crestor -) 5 mg PO HS [facility] Last Admin: 01/17/19 21:37 Dose: 5 mg Warfarin Sodium (Coumadin -) 5 mg PO DAILY@1800 [facility] - Objective Vital Signs: Vital Signs Temperature 97.6 F 01/18/19 06:00 Pulse Rate 48 L 01/18/19 06:00 Respiratory Rate 28 H 01/18/19 07:24 Blood Pressure 110/38 L 01/18/19 06:00 O2 Sat by Pulse Oximetry (%) 100 01/18/19 07:24 Constitutional: Yes: No Distress Cardiovascular: Yes: Pulse Irregular, S1, S2 Respiratory: Yes: Other (Left pigtgail decreased BS at posterior bases) Gastrointestinal: Yes: Soft. No: Tenderness, Rebound Edema: No Labs: CBC, BMP 01/17/19 05:30 01/17/19 05:30 INR, PTT INR 1.91 (0.83-1.09) H 01/17/19 05:30 Laboratory Tests 01/17/19 05:30 INR 1.91 H - ....Imaging Chest X-ray: Report Reviewed, Image Reviewed Assessment/Plan Impression 1. ANGELA likely from ATN 2. CKD 3. CHF 4. S/P resp failure requiring bipap 5. a-fib with relatively low pulse rates 6. hld 7. bilateral pleural effusions and left pleural effusion 8. anemia with thrombocytopenia 9. hypokalemia Plan - Next HD 01/18 - Repeat labs today- INR, CBC and BMP - Warfarin as per INR Replace K cautiously if low - Discussed with ICU Hospitalist Dr Brito
--- NOTE | 2019-01-18 10:09 | PN ---
Progress Note, Physician Chief Complaint: alert; no chest pain or dyspnea. History of Present Illness: 6The patient is an 88 year old male, with a significant PMH of HTN, HLD, AFib ( on coumadin), CAD (s/p CABG, s/p drug-eluting stent x1), diastolic CHF, who presents to the emergency department for evaluation of SOB, generalized weakness , and lower extremity edema for about a week. The patient is on lasix and was on spironolactone but discontinued about 2 weeks ago, and his symptoms began soon after. Endorses swelling all the way up to his abdomen. Endorses orthopnea and ELMORE. The patient denies chest pain, headache and dizziness. Denies fever, chills, nausea, vomit, diarrhea and constipation. Denies dysuria, frequency, urgency and hematuria. Allergies: NKA Social history: None reported Mop Machine Operator: Dr. Rosales PCP: Dr. Matos - Current Medication List Current Medications: Active Medications Artificial Tears (Artificial Tears) 1 drop OU Q8H PRN PRN Reason: DRY EYES Rosuvastatin Calcium (Crestor -) 5 mg PO [facility] Last Admin: 01/17/19 21:37 Dose: 5 mg Warfarin Sodium (Coumadin -) 5 mg PO DAILY@1800 COUNTS INCLUDE 234 BEDS AT THE [facility] - Objective Vital Signs: Vital Signs Temperature 97.6 F 01/18/19 06:00 Pulse Rate 48 L 01/18/19 06:00 Respiratory Rate 28 H 01/18/19 07:24 Blood Pressure 110/38 L 01/18/19 06:00 O2 Sat by Pulse Oximetry (%) 100 01/18/19 07:24 Constitutional: Yes: Calm Eyes: Yes: WNL HENT: Yes: WNL Neck: Yes: WNL Cardiovascular: Yes: Pulse Irregular Respiratory: Yes: Regular, Diminished Gastrointestinal: Yes: Soft ...Rectal Exam: Yes: Deferred Genitourinary: No: Anuria Musculoskeletal: Yes: Muscle Weakness Extremities: Yes: Cool Edema: No Peripheral Pulses WNL: Yes Neurological: Yes: Alert, Oriented, Weakness Psychiatric: Yes: Alert, Oriented Labs: CBC, BMP 01/17/19 05:30 01/17/19 05:30 INR, PTT INR 1.91 (0.83-1.09) H 01/17/19 05:30 - ....Imaging Cat Scan: Image Reviewed (bilateral vascular congestion and pleural effusion) Other: Image Reviewed (telemetry: AF with periods of slow VR) Problem List - Problems (1) ESRD (end stage renal disease) on dialysis Assessment/Plan: HD with fluid removal (acute/chronic diastolic CHF); K+ low. Code(s): N18.6 - END STAGE RENAL DISEASE; Z99.2 - DEPENDENCE ON RENAL DIALYSIS (2) COPD (chronic obstructive pulmonary disease) Assessment/Plan: steroids, bronchodilators, and O2 per bean sprout grower. Code(s): J44.9 - CHRONIC OBSTRUCTIVE PULMONARY DISEASE, UNSPECIFIED Qualifiers: COPD type: unspecified COPD Qualified Code(s): J44.9 - Chronic obstructive pulmonary disease, unspecified (3) Atrial fibrillation Assessment/Plan: AF, with periods of slow ventricular response. F/u INR, and restart warfarin to keep it 2-3 (if right sided chest tube is no longer going to be placed). Off AV conduction blockers; f/u HR. ECHO: normal LVEF; reduced RVEF, with RV dilatation. Code(s): I48.91 - UNSPECIFIED ATRIAL FIBRILLATION Qualifiers: Atrial fibrillation type: permanent Qualified Code(s): I48.2 - Chronic atrial fibrillation (4) Hyperlipidemia Assessment/Plan: total cholesterol 73 mg/dL on rosuvastatin; LFTs are not elevated. Code(s): E78.5 - HYPERLIPIDEMIA, UNSPECIFIED Qualifiers: Hyperlipidemia type: pure hypercholesterolemia Qualified Code(s): E78.00 - Pure hypercholesterolemia, unspecified; E78.0 - Pure hypercholesterolemia (5) Acute on chronic diastolic (congestive) heart failure Code(s): I50.33 - ACUTE ON CHRONIC DIASTOLIC (CONGESTIVE) HEART FAILURE Assessment/Plan CCU time spent: 35 minutes.
[2019-01-18 13:18] LABS: INR 1.81 (0.83-1.09); PROTHROMBIN TIME (PATIENT) 21.5 SEC (9.7-13.0)
[2019-01-18 13:28] LABS: ANION GAP 8 MMOL/L (8-16); BLOOD UREA NITROGEN 37 mg/dL (7-18); CALCIUM 8.2 mg/dL (8.5-10.1); CHLORIDE 100 mmol/L (98-107); CO2 31 mmol/L (21-32); GLUCOSE,RANDOM 96 mg/dL (74-106); POTASSIUM 3.1 mmol/L (3.5-5.1); SODIUM 139 mmol/L (136-145)
--- NOTE | 2019-01-18 15:17 | PN ---
Progress Note, Physician Chief Complaint: Mr Aleman is without complaint and says he is feeling well today. No cp, sob, n/ v. - Current Medication List Current Medications: Active Medications Artificial Tears (Artificial Tears) 1 drop OU Q8H PRN PRN Reason: DRY EYES Rosuvastatin Calcium (Crestor -) 5 mg PO HS [facility] Last Admin: 01/17/19 21:37 Dose: 5 mg Warfarin Sodium (Coumadin -) 5 mg PO DAILY@1800 [facility] - Objective Vital Signs: Vital Signs Temperature 36.6 C 01/18/19 10:00 Pulse Rate 60 01/18/19 14:00 Respiratory Rate 25 H 01/18/19 14:00 Blood Pressure 99/44 L 01/18/19 14:00 O2 Sat by Pulse Oximetry (%) 100 01/18/19 07:24 Constitutional: Yes: Well Nourished, No Distress, Calm Cardiovascular: Yes: Regular Rate and Rhythm. No: Gallop, Murmur, Rub Respiratory: Yes: Regular, On Nasal O2 (2L), Rhonchi (R side). No: CTA Bilaterally, Rales, Wheezes Gastrointestinal: Yes: Normal Bowel Sounds, Soft. No: Distention, Tenderness Extremities: Yes: WNL Edema: Yes Edema: LLE: 1+, RLE: 1+ Labs: CBC, BMP 01/17/19 05:30 01/18/19 12:25 INR, PTT INR 1.81 (0.83-1.09) H 01/18/19 12:25 Problem List - Problems (1) Acute on chronic diastolic (congestive) heart failure Code(s): I50.33 - ACUTE ON CHRONIC DIASTOLIC (CONGESTIVE) HEART FAILURE (2) Uafwd-dp-rrnrkht kidney injury Code(s): N17.9 - ACUTE KIDNEY FAILURE, UNSPECIFIED; N18.9 - CHRONIC KIDNEY DISEASE, UNSPECIFIED Qualifiers: Acute renal failure type: unspecified Chronic kidney disease stage: unspecified stage Qualified Code(s): N17.9 - Acute kidney failure, unspecified ; N18.9 - Chronic kidney disease, unspecified (3) Warfarin toxicity Code(s): T45.511A - POISONING BY ANTICOAGULANTS, ACCIDENTAL, INIT (4) CAD (coronary artery disease) Code(s): I25.10 - ATHSCL HEART DISEASE OF [place] CORONARY ARTERY W/O ANG PCTRS Qualifiers: Coronary Disease-Associated Artery/Lesion type: [place] artery [place] vs. transplanted heart: [place] heart Associated angina: without angina Qualified Code(s): I25.10 - Atherosclerotic heart disease of [place] coronary artery without angina pectoris (5) COPD (chronic obstructive pulmonary disease) Code(s): J44.9 - CHRONIC OBSTRUCTIVE PULMONARY DISEASE, UNSPECIFIED Qualifiers: COPD type: unspecified COPD Qualified Code(s): J44.9 - Chronic obstructive pulmonary disease, unspecified (6) Chronic anemia Code(s): D64.9 - ANEMIA, UNSPECIFIED (7) HTN (hypertension) Code(s): I10 - ESSENTIAL (PRIMARY) HYPERTENSION Qualifiers: Hypertension type: essential hypertension Qualified Code(s): I10 - Essential (primary) hypertension (8) Pulmonary hypertension Code(s): I27.2 - OTHER SECONDARY PULMONARY HYPERTENSION * DO NOT USE * (9) Atrial fibrillation Code(s): I48.91 - UNSPECIFIED ATRIAL FIBRILLATION Qualifiers: Atrial fibrillation type: permanent Qualified Code(s): I48.2 - Chronic atrial fibrillation (10) Hyperlipidemia Code(s): E78.5 - HYPERLIPIDEMIA, UNSPECIFIED Qualifiers: Hyperlipidemia type: pure hypercholesterolemia Qualified Code(s): E78.00 - Pure hypercholesterolemia, unspecified; E78.0 - Pure hypercholesterolemia Assessment/Plan (1) Acute on chronic diastolic (congestive) heart failure Assessment/Plan: -on NC today, down to 2L -HD per nephrology -chest tube in place Code(s): I50.33 - ACUTE ON CHRONIC DIASTOLIC (CONGESTIVE) HEART FAILURE (2) Bfcix-lz-ynjiwse kidney injury Assessment/Plan: -continue HD Code(s): N17.9 - ACUTE KIDNEY FAILURE, UNSPECIFIED; N18.9 - CHRONIC KIDNEY DISEASE, UNSPECIFIED Qualifiers: Acute renal failure type: unspecified Chronic kidney disease stage: unspecified stage Qualified Code(s): N17.9 - Acute kidney failure, unspecified ; N18.9 - Chronic kidney disease, unspecified (3) Pleural effusion Assessment/Plan: -L chest tube in place -monitoring to see if needs R chest tube Code(s): T45.511A - POISONING BY ANTICOAGULANTS, ACCIDENTAL, INIT (4) CAD (coronary artery disease) Assessment/Plan: -quiescent -cardiology following Code(s): I25.10 - ATHSCL HEART DISEASE OF [place] CORONARY ARTERY W/O ANG PCTRS Qualifiers: Coronary Disease-Associated Artery/Lesion type: [place] artery [place] vs. transplanted heart: [place] heart Associated angina: without angina Qualified Code(s): I25.10 - Atherosclerotic heart disease of [place] coronary artery without angina pectoris (5) COPD (chronic obstructive pulmonary disease) Assessment/Plan: -not in exacerbation -pulmonary following Code(s): J44.9 - CHRONIC OBSTRUCTIVE PULMONARY DISEASE, UNSPECIFIED Qualifiers: COPD type: unspecified COPD Qualified Code(s): J44.9 - Chronic obstructive pulmonary disease, unspecified (6) Chronic anemia Assessment/Plan: -stable Code(s): D64.9 - ANEMIA, UNSPECIFIED (7) HTN (hypertension) Assessment/Plan: -well controlled Code(s): I10 - ESSENTIAL (PRIMARY) HYPERTENSION Qualifiers: Hypertension type: essential hypertension Qualified Code(s): I10 - Essential (primary) hypertension (8) Pulmonary hypertension Assessment/Plan: -noted Code(s): I27.2 - OTHER SECONDARY PULMONARY HYPERTENSION * DO NOT USE * (9) Atrial fibrillation Assessment/Plan: -controlled -heparin gtt stopped secondary to thrombocytopenia Code(s): I48.91 - UNSPECIFIED ATRIAL FIBRILLATION Qualifiers: Atrial fibrillation type: permanent Qualified Code(s): I48.2 - Chronic atrial fibrillation (10) Hyperlipidemia Assessment/Plan: -crestor Code(s): E78.5 - HYPERLIPIDEMIA, UNSPECIFIED Qualifiers: Hyperlipidemia type: pure hypercholesterolemia Qualified Code(s): E78.00 - Pure hypercholesterolemia, unspecified; E78.0 - Pure hypercholesterolemia (11) Acute on chronic hypoxic respiratory failure -weaning oxygen as tolerated -now on 2L [place]
[2019-01-18 16:35] VITALS: BMI 22.5
[2019-01-18] MEDS: WARFARIN NA 5 MG TABLET (UD) PO SCH (18:09)
--- NOTE | 2019-01-18 18:27 | PN ---
Progress Note (short form) - Note Progress Note: PULM/CCM Pt Seen & Examined in the ICU. C & A, reading the News Paper this AM w/ breakfast. Marked improve in Mental status. Active Medications Artificial Tears (Artificial Tears) 1 drop OU Q8H PRN PRN Reason: DRY EYES Rosuvastatin Calcium (Crestor -) 5 mg PO HS [facility] Last Admin: 01/18/19 21:45 Dose: 5 mg Warfarin Sodium (Coumadin -) 5 mg PO DAILY@1800 [facility] Last Admin: 01/18/19 18:09 Dose: 5 mg Vital Signs Period Temp Pulse Resp BP Sys/Ascencio Pulse Ox Last 24 Hr 97.6 F-98 F 48-68 22-29 97-110/33-54 100-100 Intake & Output 01/15/19 01/16/19 01/17/19 01/18/19 23:59 23:59 23:59 23:59 Intake Total 860 660 500 400 Output Total 460 1185 850 100 Balance 400 -525 -350 300 Weight 83.552 kg 81.873 kg 83.2 kg 77.746 kg GEN: Awake and alert, less tachypneic Heart: RRR Lung: Basilar rales on the R, decreased breath sounds on the left, left pigtail Abd: soft, nontender Ext: no edema CBC, BMP 01/17/19 05:30 01/18/19 12:25 INR, PTT INR 1.81 (0.83-1.09) H 01/18/19 12:25 CXR 01/17: Single view of the chest has been submitted. The prior study of 2018, the bilateral pulmonary and pleural changes, right greater than left, left chest tube and right jugular line with sternal sutures and clips and large heart with sclerotic knob persist. There is old rib trauma. Impression: No significant change. ASSESS: Acute Hypoxic Respiratory Failure Acute on Chronic Diastolic Heart Failure Volume Overload Atrial Fibrillation Acute on Chronic Renal Failure requiring HD COPD Anemia Hypercholesterolemia Thrombocytopenia PLAN: - HD w/ ultrafiltration today - holding anticoagulation - daily weights - O2 to keep SpO2 >90% - rate control - Cardiac and Oximetry monitoring [facility] ICU PULM/CCM [id number]
[2019-01-18] MEDS: ROSUVASTATIN CA 5 MG TABLET (FP) PO SCH (21:45)
[2019-01-19 06:01] LABS: HEMATOCRIT 25.4 % (35.4-49); HEMOGLOBIN 8.5 GM/dL (11.7-16.9); MCH 32.6 pg (25.7-33.7); MCHC 33.5 g/dl (32.0-35.9); MEAN CELL VOLUME 97.1 fl (80-96); MEAN PLT VOLUME 9.1 fl (7.5-11.1); PLATELET COUNT 90 K/MM3 (134-434); RBC 2.62 M/mm3 (4.00-5.60); RDW 15.9 % (11.9-15.9); WHITE BLOOD COUNT 5.2 K/mm3 (4.0-10.0)
--- NOTE | 2019-01-19 08:28 | PN ---
Progress Note, Physician History of Present Illness: Renal F/U Pt in no distress sitting up in bed and eating breakfast and reading a newspaper Had uneventful HD yesterday Has A Fib with slow HRs and K was borderline low yesterday so K 3 bath used He believes he is urinating more today - Current Medication List Current Medications: Active Medications Artificial Tears (Artificial Tears) 1 drop OU Q8H PRN PRN Reason: DRY EYES Rosuvastatin Calcium (Crestor -) 5 mg PO HS [facility] Last Admin: 01/18/19 21:45 Dose: 5 mg Warfarin Sodium (Coumadin -) 5 mg PO DAILY@1800 [facility] Last Admin: 01/18/19 18:09 Dose: 5 mg - Objective Vital Signs: Vital Signs Temperature 97.8 F 01/19/19 06:00 Pulse Rate 55 L 01/19/19 06:00 Respiratory Rate 28 H 01/19/19 06:00 Blood Pressure 93/30 L 01/19/19 06:00 O2 Sat by Pulse Oximetry (%) 100 01/18/19 19:47 Constitutional: Yes: No Distress Cardiovascular: Yes: Pulse Irregular, S1, S2 Respiratory: Yes: CTA Bilaterally, Other (Left sided CT) Gastrointestinal: Yes: Soft, Distention. No: Tenderness, Rebound Edema: LLE: 1+, RLE: 1+ Labs: CBC, BMP 01/19/19 05:30 01/18/19 12:25 INR, PTT INR 1.81 (0.83-1.09) H 01/18/19 12:25 Assessment/Plan Impression 1. ANGELA likely from ATN 2. CKD 3. CHF 4. S/P resp failure requiring bipap 5. a-fib with relatively low pulse rates 6. hld 7. bilateral pleural effusions and left pleural effusion 8. anemia with thrombocytopenia 9. hypokalemia Plan - Next HD 01/20 and will attempt to remove 2 liter as tolerated since BP is relatively low - Warfarin as per INR - Replace K cautiously if low - Discussed with ICU Hospitalist Dr Brito
--- NOTE | 2019-01-19 13:41 | PN ---
Progress Note (short form) - Note Progress Note: PULM/CCM Pt Seen & Examined in the ICU. C & A, NAD, mental status remains intact Active Medications Artificial Tears (Artificial Tears) 1 drop OU Q8H PRN PRN Reason: DRY EYES Rosuvastatin Calcium (Crestor -) 5 mg PO HS [facility] Last Admin: 01/18/19 21:45 Dose: 5 mg Warfarin Sodium (Coumadin -) 5 mg PO DAILY@1800 [facility] Last Admin: 01/18/19 18:09 Dose: 5 mg Vital Signs Period Temp Pulse Resp BP Sys/Ascencio Pulse Ox Last 24 Hr 97.7 F-98.1 F 52-63 22-28 93-101/30-45 100-100 Intake & Output 01/16/19 01/17/19 01/18/19 01/19/19 23:59 23:59 23:59 23:59 Intake Total 660 500 400 480 Output Total 1185 850 100 50 Balance -525 -350 300 430 Weight 81.873 kg 83.2 kg 77.746 kg 79.435 kg GEN: Awake and alert, less tachypneic, improved mental status Heart: RRR Lung: Basilar rales on the R, decreased breath sounds on the left, left pigtail Abd: soft, nontender Ext: no edema CBC, BMP 01/19/19 05:30 01/18/19 12:25 INR, PTT INR 1.81 (0.83-1.09) H 01/18/19 12:25 Microbiology 01/13/19 15:00 Pleural Fluid Gram Stain - Final 01/13/19 15:00 Pleural Fluid Body Fluid Culture - Final NO GROWTH OF AEROBIC ORGANISMS AFTER 48 HOURS INCUBATION 01/13/19 15:00 Pleural Fluid Anaerobic Culture - Final NO ANAEROBES WERE ISOLATED 01/13/19 15:00 Pleural Fluid HESHAM Preparation - Preliminary 01/13/19 15:00 Pleural Fluid Fungal Culture - Preliminary 01/13/19 15:00 Pleural Fluid AFB Smear Concentration - Final 01/13/19 15:00 Pleural Fluid Mycobacterial Culture - Preliminary 12/31/18 12:00 Urine - Urine Lester Urine Culture - Final Enterococcus Faecalis CXR 01/17: Single view of the chest has been submitted. The prior study of 2018, the bilateral pulmonary and pleural changes, right greater than left, left chest tube and right jugular line with sternal sutures and clips and large heart with sclerotic knob persist. There is old rib trauma. Impression: No significant change. ASSESS: Acute Hypoxic Respiratory Failure Acute on Chronic Diastolic Heart Failure Volume Overload Atrial Fibrillation Acute on Chronic Renal Failure requiring HD COPD Anemia Hypercholesterolemia Thrombocytopenia PLAN: - HD w/ ultrafiltration tomorrow - holding anticoagulation - daily weights - O2 to keep SpO2 >90% - rate control prn - Cardiac and Oximetry monitoring [facility] ICU PULM/CCM [id number]
--- NOTE | 2019-01-19 15:50 | PN ---
Progress Note, Physician Chief Complaint: Mr Aleman is without complaint. Denies cp, sob, n/v. - Current Medication List Current Medications: Active Medications Artificial Tears (Artificial Tears) 1 drop OU Q8H PRN PRN Reason: DRY EYES Rosuvastatin Calcium (Crestor -) 5 mg PO HS [facility] Last Admin: 01/18/19 21:45 Dose: 5 mg Warfarin Sodium (Coumadin -) 5 mg PO DAILY@1800 [facility] Last Admin: 01/18/19 18:09 Dose: 5 mg - Objective Vital Signs: Vital Signs Temperature 36.9 C 01/19/19 12:00 Pulse Rate 56 L 01/19/19 14:00 Respiratory Rate 20 01/19/19 14:00 Blood Pressure 99/45 L 01/19/19 14:00 O2 Sat by Pulse Oximetry (%) 100 01/19/19 09:00 Constitutional: Yes: Well Nourished, No Distress, Calm Cardiovascular: Yes: Regular Rate and Rhythm. No: Gallop, Murmur, Rub Respiratory: Yes: Regular, On Nasal O2, Rhonchi (right side), Other (chest tube in place). No: CTA Bilaterally, Rales, Wheezes Gastrointestinal: Yes: Normal Bowel Sounds, Soft. No: Distention, Tenderness Extremities: Yes: WNL Edema: No Labs: CBC, BMP 01/19/19 05:30 01/18/19 12:25 INR, PTT INR 1.81 (0.83-1.09) H 01/18/19 12:25 Problem List - Problems (1) Acute on chronic diastolic (congestive) heart failure Code(s): I50.33 - ACUTE ON CHRONIC DIASTOLIC (CONGESTIVE) HEART FAILURE (2) Ctvjp-ht-enlshtu kidney injury Code(s): N17.9 - ACUTE KIDNEY FAILURE, UNSPECIFIED; N18.9 - CHRONIC KIDNEY DISEASE, UNSPECIFIED Qualifiers: Acute renal failure type: unspecified Chronic kidney disease stage: unspecified stage Qualified Code(s): N17.9 - Acute kidney failure, unspecified ; N18.9 - Chronic kidney disease, unspecified (3) Warfarin toxicity Code(s): T45.511A - POISONING BY ANTICOAGULANTS, ACCIDENTAL, INIT (4) CAD (coronary artery disease) Code(s): I25.10 - ATHSCL HEART DISEASE OF [place] CORONARY ARTERY W/O ANG PCTRS Qualifiers: Coronary Disease-Associated Artery/Lesion type: [place] artery [place] vs. transplanted heart: [place] heart Associated angina: without angina Qualified Code(s): I25.10 - Atherosclerotic heart disease of [place] coronary artery without angina pectoris (5) COPD (chronic obstructive pulmonary disease) Code(s): J44.9 - CHRONIC OBSTRUCTIVE PULMONARY DISEASE, UNSPECIFIED Qualifiers: COPD type: unspecified COPD Qualified Code(s): J44.9 - Chronic obstructive pulmonary disease, unspecified (6) Chronic anemia Code(s): D64.9 - ANEMIA, UNSPECIFIED (7) HTN (hypertension) Code(s): I10 - ESSENTIAL (PRIMARY) HYPERTENSION Qualifiers: Hypertension type: essential hypertension Qualified Code(s): I10 - Essential (primary) hypertension (8) Pulmonary hypertension Code(s): I27.2 - OTHER SECONDARY PULMONARY HYPERTENSION * DO NOT USE * (9) Atrial fibrillation Code(s): I48.91 - UNSPECIFIED ATRIAL FIBRILLATION Qualifiers: Atrial fibrillation type: permanent Qualified Code(s): I48.2 - Chronic atrial fibrillation (10) Hyperlipidemia Code(s): E78.5 - HYPERLIPIDEMIA, UNSPECIFIED Qualifiers: Hyperlipidemia type: pure hypercholesterolemia Qualified Code(s): E78.00 - Pure hypercholesterolemia, unspecified; E78.0 - Pure hypercholesterolemia Assessment/Plan (1) Acute on chronic diastolic (congestive) heart failure Assessment/Plan: -HD per nephrology -chest tube in place Code(s): I50.33 - ACUTE ON CHRONIC DIASTOLIC (CONGESTIVE) HEART FAILURE (2) Ptbya-jz-ihddsuv kidney injury Assessment/Plan: -continue HD Code(s): N17.9 - ACUTE KIDNEY FAILURE, UNSPECIFIED; N18.9 - CHRONIC KIDNEY DISEASE, UNSPECIFIED Qualifiers: Acute renal failure type: unspecified Chronic kidney disease stage: unspecified stage Qualified Code(s): N17.9 - Acute kidney failure, unspecified ; N18.9 - Chronic kidney disease, unspecified (3) Pleural effusion Assessment/Plan: -L chest tube in place -monitoring to see if needs R chest tube Code(s): T45.511A - POISONING BY ANTICOAGULANTS, ACCIDENTAL, INIT (4) CAD (coronary artery disease) Assessment/Plan: -quiescent -cardiology following Code(s): I25.10 - ATHSCL HEART DISEASE OF [place] CORONARY ARTERY W/O ANG PCTRS Qualifiers: Coronary Disease-Associated Artery/Lesion type: [place] artery [place] vs. transplanted heart: [place] heart Associated angina: without angina Qualified Code(s): I25.10 - Atherosclerotic heart disease of [place] coronary artery without angina pectoris (5) COPD (chronic obstructive pulmonary disease) Assessment/Plan: -not in exacerbation -pulmonary following Code(s): J44.9 - CHRONIC OBSTRUCTIVE PULMONARY DISEASE, UNSPECIFIED Qualifiers: COPD type: unspecified COPD Qualified Code(s): J44.9 - Chronic obstructive pulmonary disease, unspecified (6) Chronic anemia Assessment/Plan: -stable Code(s): D64.9 - ANEMIA, UNSPECIFIED (7) HTN (hypertension) Assessment/Plan: -well controlled Code(s): I10 - ESSENTIAL (PRIMARY) HYPERTENSION Qualifiers: Hypertension type: essential hypertension Qualified Code(s): I10 - Essential (primary) hypertension (8) Pulmonary hypertension Assessment/Plan: -noted Code(s): I27.2 - OTHER SECONDARY PULMONARY HYPERTENSION * DO NOT USE * (9) Atrial fibrillation Assessment/Plan: -controlled -heparin gtt stopped secondary to thrombocytopenia Code(s): I48.91 - UNSPECIFIED ATRIAL FIBRILLATION Qualifiers: Atrial fibrillation type: permanent Qualified Code(s): I48.2 - Chronic atrial fibrillation (10) Hyperlipidemia Assessment/Plan: -crestor Code(s): E78.5 - HYPERLIPIDEMIA, UNSPECIFIED Qualifiers: Hyperlipidemia type: pure hypercholesterolemia Qualified Code(s): E78.00 - Pure hypercholesterolemia, unspecified; E78.0 - Pure hypercholesterolemia (11) Acute on chronic hypoxic respiratory failure -continue oxygen support
[2019-01-19] MEDS: WARFARIN NA 5 MG TABLET (UD) PO SCH (19:05)
[2019-01-19] MEDS ORDERED: PT OWN MED DRAWER 7, Y5N ONE (21:27)
[2019-01-19] MEDS: ROSUVASTATIN CA 5 MG TABLET (FP) PO SCH (22:55)
[2019-01-20 06:59] LABS: HEMATOCRIT 24.3 % (35.4-49); MCHC 33.1 g/dl (32.0-35.9); MEAN CELL VOLUME 96.6 fl (80-96); MEAN PLT VOLUME 8.7 fl (7.5-11.1); PLATELET COUNT 118 K/MM3 (134-434); RBC 2.51 M/mm3 (4.00-5.60); RDW 16.2 % (11.9-15.9); WHITE BLOOD COUNT 5.3 K/mm3 (4.0-10.0)
--- NOTE | 2019-01-20 07:01 | PN ---
Progress Note, Physician Chief Complaint: alert; no chest pain, dizziness, or dyspnea. History of Present Illness: 6The patient is an 88 year old white male, with a significant PMH of HTN, HLD, AFib (on coumadin), CAD (s/p CABG, s/p drug-eluting stent x1), diastolic CHF, who presents to the emergency department for evaluation of SOB, generalized weakness, and lower extremity edema for about a week. The patient is on lasix and was on spironolactone but discontinued about 2 weeks ago, and his symptoms began soon after. Endorses swelling all the way up to his abdomen. Endorses orthopnea and ELMORE. The patient denies chest pain, headache and dizziness. Denies fever, chills, nausea, vomit, diarrhea and constipation. Denies dysuria, frequency, urgency and hematuria. Allergies: NKA Social history: None reported Pulverizer: Dr. Rosales PCP: Dr. Matos - Current Medication List Current Medications: Active Medications Artificial Tears (Artificial Tears) 1 drop OU Q8H PRN PRN Reason: DRY EYES Rosuvastatin Calcium (Crestor -) 5 mg PO HS [facility] Last Admin: 01/19/19 22:55 Dose: 5 mg Warfarin Sodium (Coumadin -) 5 mg PO DAILY@1800 [facility] Last Admin: 01/19/19 19:05 Dose: 5 mg - Objective Vital Signs: Vital Signs Temperature 98.0 F 01/20/19 06:00 Pulse Rate 62 01/20/19 06:00 Respiratory Rate 23 H 01/20/19 06:00 Blood Pressure 96/46 L 01/20/19 06:00 O2 Sat by Pulse Oximetry (%) 100 01/19/19 21:00 Constitutional: Yes: Calm Eyes: Yes: WNL HENT: Yes: WNL Neck: Yes: WNL Cardiovascular: Yes: Pulse Irregular, S1 (varies in intensity), S2 Respiratory: Yes: Diminished Gastrointestinal: Yes: Soft ...Rectal Exam: Yes: Deferred Genitourinary: No: Anuria Breast(s): Yes: WNL Musculoskeletal: Yes: Muscle Weakness Extremities: Yes: Cool Edema: No Peripheral Pulses WNL: Yes Integumentary: Yes: WNL Neurological: Yes: Alert, Oriented, Weakness Psychiatric: Yes: WNL Labs: CBC, BMP 01/18/19 12:25 INR, PTT INR 1.81 (0.83-1.09) H 01/18/19 12:25 - ....Imaging Chest X-ray: Pending Other: Image Reviewed (telemetry: AF with periods of slow VR) Problem List - Problems (1) Diastolic CHF Code(s): I50.30 - UNSPECIFIED DIASTOLIC (CONGESTIVE) HEART FAILURE (2) ESRD (end stage renal disease) on dialysis Assessment/Plan: HD with fluid removal (acute/chronic diastolic CHF); K+ low. Code(s): N18.6 - END STAGE RENAL DISEASE; Z99.2 - DEPENDENCE ON RENAL DIALYSIS (3) COPD (chronic obstructive pulmonary disease) Assessment/Plan: steroids, bronchodilators, and O2 per apparel rental clerk. Code(s): J44.9 - CHRONIC OBSTRUCTIVE PULMONARY DISEASE, UNSPECIFIED Qualifiers: COPD type: unspecified COPD Qualified Code(s): J44.9 - Chronic obstructive pulmonary disease, unspecified (4) Atrial fibrillation Assessment/Plan: AF, with periods of slow ventricular response. F/u INR, and restart warfarin to keep it 2-3. Off AV conduction blockers; f/u HR. ECHO: normal LVEF; reduced RVEF, with RV dilatation. Code(s): I48.91 - UNSPECIFIED ATRIAL FIBRILLATION Qualifiers: Atrial fibrillation type: permanent Qualified Code(s): I48.2 - Chronic atrial fibrillation
--- NOTE | 2019-01-20 09:45 | PN ---
Progress Note, Physician Chief Complaint: Mr Aleman says he is feeling well. Denies cp, sob, n/v. - Current Medication List Current Medications: Active Medications Artificial Tears (Artificial Tears) 1 drop OU Q8H PRN PRN Reason: DRY EYES Rosuvastatin Calcium (Crestor -) 5 mg PO HS [facility] Last Admin: 01/19/19 22:55 Dose: 5 mg Warfarin Sodium (Coumadin -) 5 mg PO DAILY@1800 [facility] Last Admin: 01/19/19 19:05 Dose: 5 mg - Objective Vital Signs: Vital Signs Temperature 36.6 C 01/20/19 06:50 Pulse Rate 58 L 01/20/19 08:55 Respiratory Rate 22 H 01/20/19 08:55 Blood Pressure 101/44 L 01/20/19 08:55 O2 Sat by Pulse Oximetry (%) 100 01/19/19 21:00 Constitutional: Yes: Well Nourished, No Distress, Calm Cardiovascular: Yes: Regular Rate and Rhythm. No: Gallop, Murmur, Rub Respiratory: Yes: Regular, On Nasal O2, Rhonchi (R side). No: CTA Bilaterally, Rales, Wheezes Gastrointestinal: Yes: Normal Bowel Sounds, Soft. No: Distention, Tenderness Extremities: Yes: WNL Edema: Yes Edema: LLE: Trace, RLE: Trace Labs: CBC, BMP 01/20/19 05:30 01/18/19 12:25 INR, PTT INR 1.81 (0.83-1.09) H 01/18/19 12:25 Problem List - Problems (1) Acute on chronic diastolic (congestive) heart failure Code(s): I50.33 - ACUTE ON CHRONIC DIASTOLIC (CONGESTIVE) HEART FAILURE (2) Fiyqt-vh-idyajhi kidney injury Code(s): N17.9 - ACUTE KIDNEY FAILURE, UNSPECIFIED; N18.9 - CHRONIC KIDNEY DISEASE, UNSPECIFIED Qualifiers: Acute renal failure type: unspecified Chronic kidney disease stage: unspecified stage Qualified Code(s): N17.9 - Acute kidney failure, unspecified ; N18.9 - Chronic kidney disease, unspecified (3) Warfarin toxicity Code(s): T45.511A - POISONING BY ANTICOAGULANTS, ACCIDENTAL, INIT (4) CAD (coronary artery disease) Code(s): I25.10 - ATHSCL HEART DISEASE OF [place] CORONARY ARTERY W/O ANG PCTRS Qualifiers: Coronary Disease-Associated Artery/Lesion type: [place] artery [place] vs. transplanted heart: [place] heart Associated angina: without angina Qualified Code(s): I25.10 - Atherosclerotic heart disease of [place] coronary artery without angina pectoris (5) COPD (chronic obstructive pulmonary disease) Code(s): J44.9 - CHRONIC OBSTRUCTIVE PULMONARY DISEASE, UNSPECIFIED Qualifiers: COPD type: unspecified COPD Qualified Code(s): J44.9 - Chronic obstructive pulmonary disease, unspecified (6) Chronic anemia Code(s): D64.9 - ANEMIA, UNSPECIFIED (7) HTN (hypertension) Code(s): I10 - ESSENTIAL (PRIMARY) HYPERTENSION Qualifiers: Hypertension type: essential hypertension Qualified Code(s): I10 - Essential (primary) hypertension (8) Pulmonary hypertension Code(s): I27.2 - OTHER SECONDARY PULMONARY HYPERTENSION * DO NOT USE * (9) Atrial fibrillation Code(s): I48.91 - UNSPECIFIED ATRIAL FIBRILLATION Qualifiers: Atrial fibrillation type: permanent Qualified Code(s): I48.2 - Chronic atrial fibrillation (10) Hyperlipidemia Code(s): E78.5 - HYPERLIPIDEMIA, UNSPECIFIED Qualifiers: Hyperlipidemia type: pure hypercholesterolemia Qualified Code(s): E78.00 - Pure hypercholesterolemia, unspecified; E78.0 - Pure hypercholesterolemia Assessment/Plan (1) Acute on chronic diastolic (congestive) heart failure Assessment/Plan: -HD per nephrology -chest tube in place -getting HD today Code(s): I50.33 - ACUTE ON CHRONIC DIASTOLIC (CONGESTIVE) HEART FAILURE (2) Lyhnj-zh-jdwagxq kidney injury Assessment/Plan: -continue HD Code(s): N17.9 - ACUTE KIDNEY FAILURE, UNSPECIFIED; N18.9 - CHRONIC KIDNEY DISEASE, UNSPECIFIED Qualifiers: Acute renal failure type: unspecified Chronic kidney disease stage: unspecified stage Qualified Code(s): N17.9 - Acute kidney failure, unspecified ; N18.9 - Chronic kidney disease, unspecified (3) Pleural effusion Assessment/Plan: -L chest tube in place -case d/w Dr Guevara -chest tube continues to drain -continue HD for volume removal -may need pleurex catheter Code(s): T45.511A - POISONING BY ANTICOAGULANTS, ACCIDENTAL, INIT (4) CAD (coronary artery disease) Assessment/Plan: -quiescent -cardiology following Code(s): I25.10 - ATHSCL HEART DISEASE OF [place] CORONARY ARTERY W/O ANG PCTRS Qualifiers: Coronary Disease-Associated Artery/Lesion type: [place] artery [place] vs. transplanted heart: [place] heart Associated angina: without angina Qualified Code(s): I25.10 - Atherosclerotic heart disease of [place] coronary artery without angina pectoris (5) COPD (chronic obstructive pulmonary disease) Assessment/Plan: -not in exacerbation -pulmonary following Code(s): J44.9 - CHRONIC OBSTRUCTIVE PULMONARY DISEASE, UNSPECIFIED Qualifiers: COPD type: unspecified COPD Qualified Code(s): J44.9 - Chronic obstructive pulmonary disease, unspecified (6) Chronic anemia Assessment/Plan: -stable Code(s): D64.9 - ANEMIA, UNSPECIFIED (7) HTN (hypertension) Assessment/Plan: -well controlled Code(s): I10 - ESSENTIAL (PRIMARY) HYPERTENSION Qualifiers: Hypertension type: essential hypertension Qualified Code(s): I10 - Essential (primary) hypertension (8) Pulmonary hypertension Assessment/Plan: -noted Code(s): I27.2 - OTHER SECONDARY PULMONARY HYPERTENSION * DO NOT USE * (9) Atrial fibrillation Assessment/Plan: -controlled -continue coumadin for anticoagulation Code(s): I48.91 - UNSPECIFIED ATRIAL FIBRILLATION Qualifiers: Atrial fibrillation type: permanent Qualified Code(s): I48.2 - Chronic atrial fibrillation (10) Hyperlipidemia Assessment/Plan: -crestor Code(s): E78.5 - HYPERLIPIDEMIA, UNSPECIFIED Qualifiers: Hyperlipidemia type: pure hypercholesterolemia Qualified Code(s): E78.00 - Pure hypercholesterolemia, unspecified; E78.0 - Pure hypercholesterolemia (11) Acute on chronic hypoxic respiratory failure -continue oxygen support
--- NOTE | 2019-01-20 11:35 | PN ---
Progress Note, Physician Chief Complaint: Events noted Remains in ICU History of Present Illness: Patient was seen and examined in ICU. Awake. Chart was reviewed - Current Medication List Current Medications: Active Medications Artificial Tears (Artificial Tears) 1 drop OU Q8H PRN PRN Reason: DRY EYES Rosuvastatin Calcium (Crestor -) 5 mg PO HS [facility] Last Admin: 01/19/19 22:55 Dose: 5 mg Warfarin Sodium (Coumadin -) 5 mg PO DAILY@1800 [facility] Last Admin: 01/19/19 19:05 Dose: 5 mg - Objective Vital Signs: Vital Signs Temperature 97.5 F L 01/20/19 10:00 Pulse Rate 61 01/20/19 10:39 Respiratory Rate 22 H 01/20/19 10:39 Blood Pressure 105/46 L 01/20/19 10:39 O2 Sat by Pulse Oximetry (%) 100 01/20/19 09:00 Neck: Yes: Supple Cardiovascular: Yes: Tachycardia, Pulse Irregular, S1, S2 Respiratory: Yes: Diminished Gastrointestinal: Yes: Normal Bowel Sounds, Soft. No: Tenderness Edema: No Labs: CBC, BMP 01/20/19 05:30 01/18/19 12:25 INR, PTT INR 1.81 (0.83-1.09) H 01/18/19 12:25 Problem List - Problems (1) Pjuyw-ko-ugmzvtt kidney injury Code(s): N17.9 - ACUTE KIDNEY FAILURE, UNSPECIFIED; N18.9 - CHRONIC KIDNEY DISEASE, UNSPECIFIED Qualifiers: Acute renal failure type: unspecified Chronic kidney disease stage: unspecified stage Qualified Code(s): N17.9 - Acute kidney failure, unspecified ; N18.9 - Chronic kidney disease, unspecified (2) Acute on chronic diastolic (congestive) heart failure Code(s): I50.33 - ACUTE ON CHRONIC DIASTOLIC (CONGESTIVE) HEART FAILURE (3) CAD (coronary artery disease) Code(s): I25.10 - ATHSCL HEART DISEASE OF [place] CORONARY ARTERY W/O ANG PCTRS Qualifiers: Coronary Disease-Associated Artery/Lesion type: [place] artery [place] vs. transplanted heart: [place] heart Associated angina: without angina Qualified Code(s): I25.10 - Atherosclerotic heart disease of [place] coronary artery without angina pectoris (4) COPD (chronic obstructive pulmonary disease) Code(s): J44.9 - CHRONIC OBSTRUCTIVE PULMONARY DISEASE, UNSPECIFIED Qualifiers: COPD type: unspecified COPD Qualified Code(s): J44.9 - Chronic obstructive pulmonary disease, unspecified (5) Chronic anemia Code(s): D64.9 - ANEMIA, UNSPECIFIED (6) HTN (hypertension) Code(s): I10 - ESSENTIAL (PRIMARY) HYPERTENSION Qualifiers: Hypertension type: essential hypertension Qualified Code(s): I10 - Essential (primary) hypertension (7) Hx of CABG Code(s): Z95.1 - PRESENCE OF AORTOCORONARY BYPASS GRAFT (8) Mitral regurgitation Code(s): I34.0 - NONRHEUMATIC MITRAL (VALVE) INSUFFICIENCY Qualifiers: Cardiac valve disease etiology: nonrheumatic Qualified Code(s): I34.0 - Nonrheumatic mitral (valve) insufficiency Assessment/Plan 1. Acute Hypoxic Respiratory Failure 2. Acute on chronic diastolic heart failure with pleural effusion post left chest tube drainage 3. CAD post CABG/PCI (stent) evidence of demand ischemia angina pectoris 4. Persistent atrial fibrillation [id number] score of 5 on Coumadin therapy with therapeutic INR 5. Hypertension 6. Hypercholesterolemia 7. MR mild to moderate in severity 8. TR moderate in severity 9. Carotid stenosis, moderate in severity 10. COPD 11. Acute on chronic kidney disease, initiated HD via PC 12. Anemia and thrombocytopenia PLAN: 1. Ideally resume Toprol XL 12.5 qd as hemodynamics permitting, currently low BP 2. Ideally should be on ACEI or ARBS, pending renal function stabilization 3. Continue Crestor 5 mg QHS 4. Chest tube/pigtail management per ICU team 5. HD via PC per renal service Further plans are to follow Bakari Solitario MD
--- NOTE | 2019-01-20 12:34 | PN ---
Teaching Attending Note Name of Resident: Edy Perez ATTENDING PHYSICIAN STATEMENT I saw and evaluated the patient. I reviewed the resident's note and discussed the case with the resident. I agree with the resident's findings and plan as documented. SUBJECTIVE: Patient seen and examined in the ICU. Awake and alert on NC O2. Reports feeling overall better. Decreased drainage from the left pigtail (25cc). CXR: Decreasing effusion on the right / improved left effusion OBJECTIVE: Intake & Output 01/17/19 01/18/19 01/19/19 01/20/19 23:59 23:59 23:59 23:59 Intake Total 500 400 580 10 Output Total 850 100 110 25 Balance -350 300 470 -15 Weight 183 lb 6.793 oz 171 lb 6.4 oz 175 lb 2 oz 177 lb 8 oz Last Vital Signs Temp Pulse Resp BP Pulse Ox 97.5 F L 61 22 H 105/46 L 100 01/20/19 10:00 01/20/19 10:39 01/20/19 10:39 01/20/19 10:39 01/20/19 09:00 Active Medications Artificial Tears (Artificial Tears) 1 drop OU Q8H PRN PRN Reason: DRY EYES Rosuvastatin Calcium (Crestor -) 5 mg PO HS [facility] Last Admin: 01/19/19 22:55 Dose: 5 mg Warfarin Sodium (Coumadin -) 5 mg PO DAILY@1800 [facility] Last Admin: 01/19/19 19:05 Dose: 5 mg Gen: Awake and alert, less tachypneic Heart: RRR Lung: Right sided rales, decreased breath sounds on the left, left pigtail Abd: soft, nontender Ext: no edema Laboratory Results - last 24 hr 01/20/19 01/20/19 05:30 05:30 WBC 5.3 RBC 2.51 L Hgb 8.0 L Hct 24.3 L MCV 96.6 H MCH 32.0 MCHC 33.1 RDW 16.2 H Plt Count 118 L D MPV 8.7 PTT ([place] FS) 43.4 H ASSESSMENT AND PLAN: Acute Hypoxic Respiratory Failure Acute on Chronic Diastolic Heart Failure Volume Overload Atrial Fibrillation Acute on Chronic Renal Failure requiring HD COPD Anemia Hypercholesterolemia Thrombocytopenia - HD per renal with ultrafiltration - holding anticoagulation - Will remove left pigtail tomorrow - Right effusion is radiographically improving. will hold on right sided pleural catheter and maximize HD volume removal - daily weights - O2 to keep SpO2 >90% - rate control - Cardiac and Oximetry monitoring Dr Guevara
--- NOTE | 2019-01-20 13:53 | PN ---
Progress Note, Physician History of Present Illness: Pt seen and examined at bedside. He is awake and alert. He feels that his breathing is improving. - Current Medication List Current Medications: Active Medications Artificial Tears (Artificial Tears) 1 drop OU Q8H PRN PRN Reason: DRY EYES Rosuvastatin Calcium (Crestor -) 5 mg PO HS [facility] Last Admin: 01/19/19 22:55 Dose: 5 mg Warfarin Sodium (Coumadin -) 5 mg PO DAILY@1800 [facility] Last Admin: 01/19/19 19:05 Dose: 5 mg - Objective Vital Signs: Vital Signs Temperature 97.5 F L 01/20/19 10:00 Pulse Rate 61 01/20/19 10:39 Respiratory Rate 22 H 01/20/19 10:39 Blood Pressure 105/46 L 01/20/19 10:39 O2 Sat by Pulse Oximetry (%) 100 01/20/19 09:00 Constitutional: Yes: Calm Eyes: Yes: Conjunctiva Clear HENT: Yes: Atraumatic Cardiovascular: Yes: S1, S2 Respiratory: Yes: On Nasal O2, Rhonchi Gastrointestinal: Yes: Soft Genitourinary: Yes: Incontinence Musculoskeletal: Yes: Muscle Weakness Edema: Yes Edema: LLE: 1+, RLE: 1+ Integumentary: Yes: Venous Stasis Changes Neurological: Yes: Oriented Psychiatric: Yes: Oriented Labs: CBC, BMP 01/20/19 05:30 01/18/19 12:25 INR, PTT INR 1.81 (0.83-1.09) H 01/18/19 12:25 Problem List - Problems (1) Httcy-cj-csyuadp kidney injury Code(s): N17.9 - ACUTE KIDNEY FAILURE, UNSPECIFIED; N18.9 - CHRONIC KIDNEY DISEASE, UNSPECIFIED Qualifiers: Acute renal failure type: unspecified Chronic kidney disease stage: unspecified stage Qualified Code(s): N17.9 - Acute kidney failure, unspecified ; N18.9 - Chronic kidney disease, unspecified (2) Congestive heart failure Code(s): I50.9 - HEART FAILURE, UNSPECIFIED Qualifiers: Heart failure type: unspecified Heart failure chronicity: acute on chronic Qualified Code(s): I50.9 - Heart failure, unspecified Assessment/Plan Current Medications Generic Name Dose Route Start Last Admin Trade Name Freq PRN Reason Stop Dose Admin Artificial Tears 1 drop 01/17/19 20:23 Artificial Tears OU Q8H PRN DRY EYES Rosuvastatin Calcium 5 mg 01/17/19 22:00 01/19/19 22:55 Crestor - PO 5 mg HS [facility] Administration Warfarin Sodium 5 mg 01/18/19 18:00 01/19/19 19:05 Coumadin - PO 5 mg DAILY@1800 [facility] Administration Impression 1. ANGELA 2. CKD 3. CHF 4. hypotension 5. resp failure requiring bipap 6. a-fib 7. hld 8. bilateral pleural effusions 9. anemia 10. hypokalemia Plan - HD today - daily cxr - chest tube is going to be removed - UF with HD - renal diet - avoid nsaids
--- NOTE | 2019-01-20 15:17 | EKG ---
Test Reason : Blood Pressure : / mmHG Vent. Rate : 059 BPM Atrial Rate : 066 BPM P-R Int : 000 ms QRS Dur : 114 ms QT Int : 384 ms P-R-T Axes : 000 089 014 degrees QTc Int : 380 ms PROBABLE ATRIAL FIBRILLATION VS. JUCTIONAL RHYTHM WITH FREQUENT PREMATURE VENTRICULAR COMPLEXES CANNOT RULE OUT ANTERIOR INFARCT (CITED ON OR BEFORE 30-DEC-2018) ABNORMAL ECG WHEN COMPARED WITH ECG OF 30-DEC-2018 12:53, PREMATURE VENTRICULAR COMPLEXES ARE NOW PRESENT T WAVE VARIATION Confirmed by HELDER MONTILLA MD ([id number]) on 01/20/2019 3:16:49 PM Referred By: Confirmed By:HELDER MONTILLA MD
--- NOTE | 2019-01-20 16:23 | PN ---
Physical Exam: SUBJECTIVE: Patient seen and examined HD# 21 Overnight Events: Mild hypotension noted overnight without reported symptoms. OBJECTIVE: 24 HourI/Os (thus far): In: 10 Out: 25 - Chest Tube: 25 Bal: - 15 Lines: - PIV Drains: - Left Chest Tube to suction. Oxygen Therapy: Low flow oxygen via nasal cannula Vital Signs Period Temp Pulse Resp BP Sys/Ascencio Pulse Ox Last 24 Hr 97.5 F-98.0 F 39-68 16-32 93-105/38-81 100-100 GENERAL: The patient is awake, alert, and fully oriented, in no acute distress. HEAD: Normal with no signs of trauma. LUNGS: Nasal cannula in place. No respiratory distress. Rhonchi in right lower lung field. Decreased breath sounds in left lower lung field. HEART: Irregularly irregular rate and rhythm, S1, S2 without murmur, rub or gallop. ABDOMEN: Soft, nontender, nondistended EXTREMITIES: 2+ pulses, warm, well-perfused, trace pretibial edema. PSYCH: Normal mood, normal affect. SKIN: Warm and dry Laboratory Results - last 24 hr 01/20/19 01/20/19 05:30 05:30 WBC 5.3 RBC 2.51 L Hgb 8.0 L Hct 24.3 L MCV 96.6 H MCH 32.0 MCHC 33.1 RDW 16.2 H Plt Count 118 L D MPV 8.7 PTT (Actin FS) 43.4 H Active Medications Generic Name Dose Route Start Last Admin Trade Name Freq PRN Reason Stop Dose Admin Artificial Tears 1 drop 01/17/19 20:23 Artificial Tears OU Q8H PRN DRY EYES Rosuvastatin Calcium 5 mg 01/17/19 22:00 01/19/19 22:55 Crestor - PO 5 mg HS JAYCE Administration Warfarin Sodium 5 mg 01/18/19 18:00 01/19/19 19:05 Coumadin - PO 5 mg DAILY@1800 JAYCE Administration ASSESSMENT/PLAN: 88 year old male with a history of CAD s/p CABG, s/p PCI/LUIS EDUARDO , persistent atrial fibrillation, diastolic congestive heart failure, HTN, carotid stenosis who presented with worsening SON, orthopnea, b/l leg edema, found to be in acute heart failure. Neuro (& Psych): - No sedating medications. - A/O x4. Endocrine: - Acute on chronic kidney disease. Will undergo HD at bedside today. - Hyperphosphetema. Likely secondary to CKD. - Hypokalemia. Will replace. Cardiovascular: - Acute on chronic diastolic heart failure - Atrial fibrillation. Rate controlled. Anticoagulation held. - HTN home medications held with borderline hypotension - HLD on Rosuvastatin Pulm / Resp: - COPD on low flow oxygen therapy - R pleural effusion improving. - L chest tube with minimal output. Removed from suction. Will consider removing tomorrow. Hematologic: - Macrocytic Anemia - Thrombocytopenia Infectious Disease: - UTI completed antibiotic course FEN: - Tolerating PO Prophylaxis: - DVT: Heparin Dispo: Care to be deescalated to telemetry for further monitoring. Edy Perez MD, PGY1 Visit type - Emergency Visit Emergency Visit: No - New Patient This patient is new to me today: Yes Date on this admission: 01/20/19 - Critical Care Critical Care patient: Yes Total Critical Care Time (in minutes): 36 Critical Care Statement: The care of this patient involved high complexity decision making to prevent further life threatening deterioration of the patient 's condition and/or to evaluate & treat vital organ system(s) failure or risk of failure.
[2019-01-20] MEDS: WARFARIN NA 5 MG TABLET (UD) PO SCH (17:14)
[2019-01-20] MEDS ORDERED: PT OWN MED DRAWER 7, Y5N ONE (19:03)
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
[2019-01-20] MEDS: ROSUVASTATIN CA 5 MG TABLET (FP) PO SCH (22:21)
[2019-01-21 06:48] LABS: EOS % 3.2 % (0-4.5); HEMATOCRIT 24.1 % (35.4-49); HEMOGLOBIN 8.1 GM/dL (11.7-16.9); LYMPH % 12.1 % (8-40); MCH 32.7 pg (25.7-33.7); MCHC 33.8 g/dl (32.0-35.9); MEAN CELL VOLUME 96.8 fl (80-96); MEAN PLT VOLUME 8.9 fl (7.5-11.1); MONO % 11.4 % (3.8-10.2); NEUT % 71.3 % (42.8-82.8); PLATELET COUNT 110 K/MM3 (134-434); RBC 2.49 M/mm3 (4.00-5.60); RDW 16.2 % (11.9-15.9); WHITE BLOOD COUNT 4.5 K/mm3 (4.0-10.0)
[2019-01-21 07:03] LABS: INR 3.07 (0.83-1.09); PROTHROMBIN TIME (PATIENT) 36.6 SEC (9.7-13.0)
[2019-01-21 07:18] LABS: ANION GAP 7 MMOL/L (8-16); BLOOD UREA NITROGEN 43 mg/dL (7-18); CALCIUM 7.8 mg/dL (8.5-10.1); CHLORIDE 100 mmol/L (98-107); CO2 31 mmol/L (21-32); CREATININE 3.9 mg/dL (0.55-1.3); GLUCOSE,RANDOM 91 mg/dL (74-106); MAGNESIUM 1.9 mg/dL (1.8-2.4); SODIUM 139 mmol/L (136-145)
--- NOTE | 2019-01-21 12:43 | PN ---
Progress Note (short form) - Note Progress Note: Patient seen and examined in the SDICU. Awake and alert on NC O2. Reports feeling overall better. Significant drainage from the left pigtail (570cc). OBJECTIVE: Intake & Output 01/18/19 01/19/19 01/20/19 01/21/19 23:59 23:59 23:59 23:59 Intake Total 400 580 370 260 Output Total 100 110 330 570 Balance 300 470 40 -310 Weight 171 lb 6.4 oz 175 lb 2 oz 177 lb 8 oz 172 lb 1.6 oz Last Vital Signs Temp Pulse Resp BP Pulse Ox 98.9 F 50 L 24 H 99/42 L 100 01/20/19 22:00 01/21/19 05:40 01/21/19 05:40 01/21/19 05:40 01/20/19 21:00 Active Medications Artificial Tears (Artificial Tears) 1 drop OU Q8H PRN PRN Reason: DRY EYES Rosuvastatin Calcium (Crestor -) 5 mg PO HS [facility] Last Admin: 01/20/19 22:21 Dose: 5 mg Warfarin Sodium (Coumadin -) 5 mg PO DAILY@1800 JAYCE Last Admin: 01/20/19 17:14 Dose: 5 mg Gen: Awake and alert, less tachypneic Heart: RRR Lung: Right sided rales, decreased breath sounds on the left, left pigtail Abd: soft, nontender Ext: no edema Laboratory Results - last 24 hr 01/21/19 01/21/19 01/21/19 05:30 05:30 05:30 WBC 4.5 RBC 2.49 L Hgb 8.1 L Hct 24.1 L MCV 96.8 H MCH 32.7 MCHC 33.8 RDW 16.2 H Plt Count 110 L MPV 8.9 Absolute Neuts (auto) 3.2 Neutrophils % 71.3 Lymphocytes % 12.1 Monocytes % 11.4 H Eosinophils % 3.2 Basophils % 2.0 Nucleated RBC % 0 PT with INR 36.60 H INR 3.07 H PTT (Actin FS) 44.6 H Sodium Potassium Chloride Carbon Dioxide Anion Gap BUN Creatinine Creat Clearance w eGFR Random Glucose Calcium Phosphorus Magnesium 01/21/19 05:30 WBC RBC Hgb Hct MCV MCH MCHC RDW Plt Count MPV Absolute Neuts (auto) Neutrophils % Lymphocytes % Monocytes % Eosinophils % Basophils % Nucleated RBC % PT with INR INR PTT (Actin FS) Sodium 139 Potassium 3.0 L Chloride 100 Carbon Dioxide 31 Anion Gap 7 L BUN 43 H Creatinine 3.9 H Creat Clearance w eGFR 14.63 Random Glucose 91 Calcium 7.8 L Phosphorus 5.0 H Magnesium 1.9 ASSESSMENT AND PLAN: Acute Hypoxic Respiratory Failure Acute on Chronic Diastolic Heart Failure Volume Overload Atrial Fibrillation Acute on Chronic Renal Failure requiring HD COPD Anemia Hypercholesterolemia Thrombocytopenia - Will leave left pigtail for now and monitor output - HD per renal with ultrafiltration - Coumadin with following of INR - Right effusion is radiographically improving. Will hold on right sided pleural catheter and maximize HD volume removal - Daily weights - O2 to keep SpO2 >90% - Rate control - Cardiac and Oximetry monitoring Dr Guevara
--- NOTE | 2019-01-21 13:04 | PN ---
Progress Note, Physician Chief Complaint: Events noted Remains in ICU/telemetry History of Present Illness: Patient was seen and examined in ICU. Awake. Chart was reviewed No significant changes - Current Medication List Current Medications: Active Medications Artificial Tears (Artificial Tears) 1 drop OU Q8H PRN PRN Reason: DRY EYES Potassium Chloride (Potassium Chloride 10 Meq Premix Ivpb -) 10 meq in 100 mls @ 100 mls/hr IVPB Q60M [facility] Stop: 01/21/19 14:59 Rosuvastatin Calcium (Crestor -) 5 mg PO HS [facility] Last Admin: 01/20/19 22:21 Dose: 5 mg Warfarin Sodium (Coumadin -) 5 mg PO DAILY@1800 [facility] Last Admin: 01/20/19 17:14 Dose: 5 mg - Objective Vital Signs: Vital Signs Temperature 98.9 F 01/20/19 22:00 Pulse Rate 50 L 01/21/19 05:40 Respiratory Rate 24 H 01/21/19 05:40 Blood Pressure 99/42 L 01/21/19 05:40 O2 Sat by Pulse Oximetry (%) 100 01/20/19 21:00 HENT: Yes: Atraumatic Neck: Yes: Supple Cardiovascular: Yes: Pulse Irregular, S1, S2 Respiratory: Yes: Diminished Gastrointestinal: Yes: Normal Bowel Sounds, Soft. No: Tenderness Edema: No Labs: CBC, BMP 01/21/19 05:30 01/21/19 05:30 INR, PTT INR 3.07 (0.83-1.09) H 01/21/19 05:30 Problem List - Problems (1) Wlpuq-jg-bwxdpqo kidney injury Code(s): N17.9 - ACUTE KIDNEY FAILURE, UNSPECIFIED; N18.9 - CHRONIC KIDNEY DISEASE, UNSPECIFIED Qualifiers: Acute renal failure type: unspecified Chronic kidney disease stage: unspecified stage Qualified Code(s): N17.9 - Acute kidney failure, unspecified ; N18.9 - Chronic kidney disease, unspecified (2) Acute on chronic diastolic (congestive) heart failure Code(s): I50.33 - ACUTE ON CHRONIC DIASTOLIC (CONGESTIVE) HEART FAILURE (3) CAD (coronary artery disease) Code(s): I25.10 - ATHSCL HEART DISEASE OF [place] CORONARY ARTERY W/O ANG PCTRS Qualifiers: Coronary Disease-Associated Artery/Lesion type: [place] artery [place] vs. transplanted heart: [place] heart Associated angina: without angina Qualified Code(s): I25.10 - Atherosclerotic heart disease of [place] coronary artery without angina pectoris (4) COPD (chronic obstructive pulmonary disease) Code(s): J44.9 - CHRONIC OBSTRUCTIVE PULMONARY DISEASE, UNSPECIFIED Qualifiers: COPD type: unspecified COPD Qualified Code(s): J44.9 - Chronic obstructive pulmonary disease, unspecified (5) Chronic anemia Code(s): D64.9 - ANEMIA, UNSPECIFIED (6) HTN (hypertension) Code(s): I10 - ESSENTIAL (PRIMARY) HYPERTENSION Qualifiers: Hypertension type: essential hypertension Qualified Code(s): I10 - Essential (primary) hypertension (7) Hx of CABG Code(s): Z95.1 - PRESENCE OF AORTOCORONARY BYPASS GRAFT (8) Mitral regurgitation Code(s): I34.0 - NONRHEUMATIC MITRAL (VALVE) INSUFFICIENCY Qualifiers: Cardiac valve disease etiology: nonrheumatic Qualified Code(s): I34.0 - Nonrheumatic mitral (valve) insufficiency Assessment/Plan 1. Acute Hypoxic Respiratory Failure 2. Acute on chronic diastolic heart failure with pleural effusion post left chest tube drainage 3. CAD post CABG/PCI (stent) evidence of demand ischemia angina pectoris 4. Persistent atrial fibrillation [id number] score of 5 on Coumadin therapy with therapeutic INR 5. Hypertension 6. Hypercholesterolemia 7. MR mild to moderate in severity 8. TR moderate in severity 9. Carotid stenosis, moderate in severity 10. COPD 11. Acute on chronic kidney disease, initiated HD via PC 12. Anemia and thrombocytopenia PLAN: 1. Currently not on beta mukesh due to low BP 2. Ideally should be on ACEI or ARBS, pending renal function stabilization 3. Continue Crestor 5 mg QHS 4. Chest tube/pigtail management per ICU team 5. HD via PC per renal service Further plans are to follow Bakari Solitario MD
--- NOTE | 2019-01-21 14:03 | PN ---
Progress Note, Physician History of Present Illness: Pt seen and examined at bedside. He is awake and alert. He feels that his breathing is improved today. He is on nasal canula now. - Current Medication List Current Medications: Active Medications Artificial Tears (Artificial Tears) 1 drop OU Q8H PRN PRN Reason: DRY EYES Potassium Chloride (Potassium Chloride 10 Meq Premix Ivpb -) 10 meq in 100 mls @ 100 mls/hr IVPB Q60M [facility] Stop: 01/21/19 14:59 Rosuvastatin Calcium (Crestor -) 5 mg PO HS [facility] Last Admin: 01/20/19 22:21 Dose: 5 mg Warfarin Sodium (Coumadin -) 5 mg PO DAILY@1800 [facility] Last Admin: 01/20/19 17:14 Dose: 5 mg - Objective Vital Signs: Vital Signs Temperature 98.9 F 01/20/19 22:00 Pulse Rate 50 L 01/21/19 05:40 Respiratory Rate 24 H 01/21/19 09:00 Blood Pressure 99/42 L 01/21/19 05:40 O2 Sat by Pulse Oximetry (%) 100 01/21/19 09:00 Constitutional: Yes: Calm Eyes: Yes: Conjunctiva Clear HENT: Yes: Atraumatic Cardiovascular: Yes: S1, S2 Respiratory: Yes: On Nasal O2, Rhonchi, Other (chest tube) Gastrointestinal: Yes: Soft Genitourinary: Yes: Incontinence Musculoskeletal: Yes: Muscle Weakness Edema: Yes Edema: LLE: 1+, RLE: 1+ Neurological: Yes: Oriented Psychiatric: Yes: Oriented Labs: CBC, BMP 01/21/19 05:30 01/21/19 05:30 INR, PTT INR 3.07 (0.83-1.09) H 01/21/19 05:30 Problem List - Problems (1) Zxelf-wi-xjfrpsg kidney injury Code(s): N17.9 - ACUTE KIDNEY FAILURE, UNSPECIFIED; N18.9 - CHRONIC KIDNEY DISEASE, UNSPECIFIED Qualifiers: Acute renal failure type: unspecified Chronic kidney disease stage: unspecified stage Qualified Code(s): N17.9 - Acute kidney failure, unspecified ; N18.9 - Chronic kidney disease, unspecified (2) Congestive heart failure Code(s): I50.9 - HEART FAILURE, UNSPECIFIED Qualifiers: Heart failure type: unspecified Heart failure chronicity: acute on chronic Qualified Code(s): I50.9 - Heart failure, unspecified Assessment/Plan Current Medications Generic Name Dose Route Start Last Admin Trade Name Freq PRN Reason Stop Dose Admin Artificial Tears 1 drop 01/17/19 20:23 Artificial Tears OU Q8H PRN DRY EYES Potassium Chloride 10 meq in 100 mls @ 100 mls/hr 01/21/19 13:00 Potassium Chloride 10 Meq Premix Ivpb - IVPB 01/21/19 14:59 Q60M JAYCE Rosuvastatin Calcium 5 mg 01/17/19 22:00 01/20/19 22:21 Crestor - PO 5 mg HS JAYCE Administration Warfarin Sodium 5 mg 01/18/19 18:00 01/20/19 17:14 Coumadin - PO 5 mg DAILY@1800 JAYCE Administration Impression 1. ANGELA 2. CKD 3. CHF 4. hypotension 5. resp failure requiring bipap 6. a-fib 7. hld 8. bilateral pleural effusions 9. anemia 10. hypokalemia Plan - HD in am - replace potassium - pulm follow up for chest tube care - UF with HD - renal diet - avoid nsaids
[2019-01-21] MEDS: KCL 10 MEQ IVPB 10 MEQ/100 ML INFUS.BAG IVPB SCH ×2 (15:26→18:42)
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
--- NOTE | 2019-01-21 17:12 | PN ---
Teaching Attending Note Name of Resident: Galilea Chakraborty ATTENDING PHYSICIAN STATEMENT I saw and evaluated the patient. I reviewed the resident's note and discussed the case with the resident. I agree with the resident's findings and plan as documented. SUBJECTIVE: Mr Aleman says he is doing well. Denies cp, sob, n/v. OBJECTIVE: Last Vital Signs Temp Pulse Resp BP Pulse Ox 36.5 C 50 L 24 H 97/50 L 100 01/21/19 17:05 01/21/19 05:40 01/21/19 09:00 01/21/19 17:05 01/21/19 09:00 Gen: nad Pulm: R sided crackles, L chest tube in place draining fluid CV: rrr w/o m/r/g Abd: +bs, s/nt/nd Ext: no c/c/e CBC, BMP 01/21/19 05:30 01/21/19 05:30 ASSESSMENT AND PLAN: (1) Acute on chronic diastolic (congestive) heart failure Assessment/Plan: -HD per nephrology -chest tube in place -HD MWF Code(s): I50.33 - ACUTE ON CHRONIC DIASTOLIC (CONGESTIVE) HEART FAILURE (2) Nioxk-al-urczpmg kidney injury Assessment/Plan: -continue HD Code(s): N17.9 - ACUTE KIDNEY FAILURE, UNSPECIFIED; N18.9 - CHRONIC KIDNEY DISEASE, UNSPECIFIED Qualifiers: Acute renal failure type: unspecified Chronic kidney disease stage: unspecified stage Qualified Code(s): N17.9 - Acute kidney failure, unspecified ; N18.9 - Chronic kidney disease, unspecified (3) Pleural effusion Assessment/Plan: -L chest tube in place -chest tube continues to drain -continue HD for volume removal -may need pleurex catheter Code(s): T45.511A - POISONING BY ANTICOAGULANTS, ACCIDENTAL, INIT (4) CAD (coronary artery disease) Assessment/Plan: -quiescent -cardiology following Code(s): I25.10 - ATHSCL HEART DISEASE OF [place] CORONARY ARTERY W/O ANG PCTRS Qualifiers: Coronary Disease-Associated Artery/Lesion type: [place] artery [place] vs. transplanted heart: [place] heart Associated angina: without angina Qualified Code(s): I25.10 - Atherosclerotic heart disease of [place] coronary artery without angina pectoris (5) COPD (chronic obstructive pulmonary disease) Assessment/Plan: -not in exacerbation -pulmonary following Code(s): J44.9 - CHRONIC OBSTRUCTIVE PULMONARY DISEASE, UNSPECIFIED Qualifiers: COPD type: unspecified COPD Qualified Code(s): J44.9 - Chronic obstructive pulmonary disease, unspecified (6) Chronic anemia Assessment/Plan: -stable Code(s): D64.9 - ANEMIA, UNSPECIFIED (7) HTN (hypertension) Assessment/Plan: -well controlled Code(s): I10 - ESSENTIAL (PRIMARY) HYPERTENSION Qualifiers: Hypertension type: essential hypertension Qualified Code(s): I10 - Essential (primary) hypertension (8) Pulmonary hypertension Assessment/Plan: -noted Code(s): I27.2 - OTHER SECONDARY PULMONARY HYPERTENSION * DO NOT USE * (9) Atrial fibrillation Assessment/Plan: -controlled -continue coumadin for anticoagulation Code(s): I48.91 - UNSPECIFIED ATRIAL FIBRILLATION Qualifiers: Atrial fibrillation type: permanent Qualified Code(s): I48.2 - Chronic atrial fibrillation (10) Hyperlipidemia Assessment/Plan: -crestor Code(s): E78.5 - HYPERLIPIDEMIA, UNSPECIFIED Qualifiers: Hyperlipidemia type: pure hypercholesterolemia Qualified Code(s): E78.00 - Pure hypercholesterolemia, unspecified; E78.0 - Pure hypercholesterolemia (11) Acute on chronic hypoxic respiratory failure -continue oxygen support Problem List - Problems (1) Acute on chronic diastolic (congestive) heart failure Code(s): I50.33 - ACUTE ON CHRONIC DIASTOLIC (CONGESTIVE) HEART FAILURE (2) Lmovq-uq-mrysvxy kidney injury Code(s): N17.9 - ACUTE KIDNEY FAILURE, UNSPECIFIED; N18.9 - CHRONIC KIDNEY DISEASE, UNSPECIFIED Qualifiers: Acute renal failure type: unspecified Chronic kidney disease stage: unspecified stage Qualified Code(s): N17.9 - Acute kidney failure, unspecified ; N18.9 - Chronic kidney disease, unspecified (3) Warfarin toxicity Code(s): T45.511A - POISONING BY ANTICOAGULANTS, ACCIDENTAL, INIT (4) CAD (coronary artery disease) Code(s): I25.10 - ATHSCL HEART DISEASE OF [place] CORONARY ARTERY W/O ANG PCTRS Qualifiers: Coronary Disease-Associated Artery/Lesion type: [place] artery [place] vs. transplanted heart: [place] heart Associated angina: without angina Qualified Code(s): I25.10 - Atherosclerotic heart disease of [place] coronary artery without angina pectoris (5) COPD (chronic obstructive pulmonary disease) Code(s): J44.9 - CHRONIC OBSTRUCTIVE PULMONARY DISEASE, UNSPECIFIED Qualifiers: COPD type: unspecified COPD Qualified Code(s): J44.9 - Chronic obstructive pulmonary disease, unspecified (6) Chronic anemia Code(s): D64.9 - ANEMIA, UNSPECIFIED (7) HTN (hypertension) Code(s): I10 - ESSENTIAL (PRIMARY) HYPERTENSION Qualifiers: Hypertension type: essential hypertension Qualified Code(s): I10 - Essential (primary) hypertension (8) Pulmonary hypertension Code(s): I27.2 - OTHER SECONDARY PULMONARY HYPERTENSION * DO NOT USE * (9) Atrial fibrillation Code(s): I48.91 - UNSPECIFIED ATRIAL FIBRILLATION Qualifiers: Atrial fibrillation type: permanent Qualified Code(s): I48.2 - Chronic atrial fibrillation (10) Hyperlipidemia Code(s): E78.5 - HYPERLIPIDEMIA, UNSPECIFIED Qualifiers: Hyperlipidemia type: pure hypercholesterolemia Qualified Code(s): E78.00 - Pure hypercholesterolemia, unspecified; E78.0 - Pure hypercholesterolemia
[2019-01-21] MEDS ORDERED: WARFARIN NA 2.5 MG TABLET (FP) PO ONE (19:00)
[2019-01-21] MEDS ORDERED: PT OWN MED DRAWER 7, Y5N ONE (20:09)
[2019-01-21] MEDS: ROSUVASTATIN CA 5 MG TABLET (FP) PO SCH (22:10)
[2019-01-22 06:41] LABS: BASO % 1.5 % (0-2.0); EOS % 3.4 % (0-4.5); HEMATOCRIT 23.5 % (35.4-49); LYMPH % 14.7 % (8-40); MCH 32.6 pg (25.7-33.7); MCHC 33.9 g/dl (32.0-35.9); MEAN CELL VOLUME 96.2 fl (80-96); NEUT % 70.4 % (42.8-82.8); PLATELET COUNT 123 K/MM3 (134-434); RBC 2.45 M/mm3 (4.00-5.60); RDW 16.1 % (11.9-15.9); WHITE BLOOD COUNT 4.5 K/mm3 (4.0-10.0)
[2019-01-22 07:10] LABS: INR 3.26 (0.83-1.09); PROTHROMBIN TIME (PATIENT) 38.9 SEC (9.7-13.0)
[2019-01-22 07:23] LABS: ALBUMIN 2.5 g/dl (3.4-5.0); ALK PHOS 132 U/L (45-117); ANION GAP 10 MMOL/L (8-16); BILIRUBIN,TOTAL 0.3 mg/dL (0.2-1); BLOOD UREA NITROGEN 60 mg/dL (7-18); CALCIUM 7.6 mg/dL (8.5-10.1); CHLORIDE 100 mmol/L (98-107); CO2 26 mmol/L (21-32); CREATININE 4.7 mg/dL (0.55-1.3); GLUCOSE,RANDOM 88 mg/dL (74-106); SGOT/AST 41 U/L (15-37); SGPT/ALT 18 U/L (13-61); SODIUM 136 mmol/L (136-145); TOT PROT 5.7 g/dl (6.4-8.2)
--- NOTE | 2019-01-22 07:39 | PN ---
Teaching Attending Note Name of Resident: Galilea Chakraborty ATTENDING PHYSICIAN STATEMENT I saw and evaluated the patient. I reviewed the resident's note and discussed the case with the resident. I agree with the resident's findings and plan as documented with exceptions below. SUBJECTIVE: Patient seen and examined. Denies any pain or complaints, feeling well. OBJECTIVE: Vital Signs Period Temp Pulse Resp BP Sys/Ascencio Pulse Ox Last 24 Hr 97.7 F 52-64 22-24 88-101/48-50 100-100 Intake & Output 01/19/19 01/20/19 01/21/19 01/22/19 23:59 23:59 23:59 23:59 Intake Total 443 132 8495 Output Total 042 779 2240 Balance 470 40 190 Weight 175 lb 2 oz 177 lb 8 oz 172 lb 1.6 oz General: sitting in bed having lunch, no use of accessory muscles of respiration Chest: decreased breath sounds at bases, L>R Abdomen: soft, NT, Extremities: 2+ pedal pitting edema Home Medications Medication Instructions Recorded Ranolazine [Ranexa -] 500 mg PO BID 03/22/12 Cholecalciferol (Vitamin D3) 2,000 unit PO DAILY 03/13/18 [Vitamin D -] Vit A/Vit C/Vit E/Zinc/Copper 1 each PO DAILY 03/13/18 [Preservision Areds Tablet] Metoprolol Succinate [Toprol Xl] 25 mg PO DAILY 03/18/18 Losartan Potassium [Cozaar -] 25 mg PO DAILY tablet 10/06/18 Warfarin Sodium 5 mg PO HS 30 Days #30 tablet 10/06/18 Allopurinol [Zyloprim -] 150 mg PO DAILY 12/30/18 Furosemide [Lasix] 40 mg PO DAILY 12/30/18 Rosuvastatin [Crestor -] 3 mg PO HS 12/30/18 Active Medications Artificial Tears (Artificial Tears) 1 drop OU Q8H PRN PRN Reason: DRY EYES Epoetin Denny (Procrit -) 10,000 unit IVPUSH ONCE ONE Stop: 01/22/19 14:05 Sodium Chloride (Normal Saline -) 250 mls @ 3,000 mls/hr IV PRN PRN PRN Reason: Hypotension during Dialysis Stop: 01/22/19 14:04 Rosuvastatin Calcium (Crestor -) 5 mg PO HS JAYCE Last Admin: 01/21/19 22:10 Dose: 5 mg Warfarin Sodium (Coumadin -) 5 mg PO DAILY@1800 [facility] Laboratory Results - last 24 hr 01/22/19 01/22/19 01/22/19 05:30 05:30 05:30 WBC 4.5 RBC 2.45 L Hgb 8.0 L Hct 23.5 L MCV 96.2 H MCH 32.6 MCHC 33.9 RDW 16.1 H Plt Count 123 L MPV 8.0 D Absolute Neuts (auto) 3.2 Neutrophils % 70.4 Lymphocytes % 14.7 D Monocytes % 10.0 Eosinophils % 3.4 Basophils % 1.5 Nucleated RBC % 0 PT with INR 38.90 H INR 3.26 H Sodium 136 Chloride 100 Carbon Dioxide 26 Anion Gap 10 BUN 60 H Creatinine 4.7 H Creat Clearance w eGFR 11.80 Random Glucose 88 Calcium 7.6 L Total Bilirubin 0.3 AST 41 H ALT 18 Alkaline Phosphatase 132 H Total Protein 5.7 L Albumin 2.5 L ASSESSMENT AND PLAN: 88 yom CAD s/p CABG (JHAVERI to mLAD, SVG to RPDA), s/p PCI/LUIS EDUARDO to LAD, persistent AF on Coumadin, diastolic dysfunction with h/o failure, HTN, hypercholesterolemia and carotid stenosis, CKD stage II-III (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 -Acute on chronic diastolic+/- systolic heart failure exacerbation (prior on lasix drip, now on HD) -Bilateral pleural effusions s/p left chest tube placement 01/13/2019 -Acute hypoxic repiratory failure -Cardiogenic shock off pressors (Prior on dobutamine then levophed drip) -Hypotension suspect cardiogenic -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, suspect cardiorenal from CHF -Perisistent Atrial fibrillation on coumadin -Anemia, suspect multifactorial from renal disease, blood draws, monitor for occult bleed -Coumadin coagulopathy -CAD s/p CABG (JHAVERI to mLAD, SVG to RPDA), s/p PCI/LUIS EDUARDO to LAD -HTN -HLD -Carotid stenosis PLan: Ongoing drainage from left chest tube. Discussed with Dr. Virk about pleurex catheter, Follow up. Will need to hold AC in the interim. Ongoing HD for fluid removal. Respiratory status improved.Bipap prn. HD per renal. s/p permacath 01/10 Metoprolol held given bradycardia and hypotension. Off heparin drip. INR noted, hold coumadin today Crestor. Resume ranexa as able. s/p 1 unit PRBC and IV iron, monitor. DVTPPX coumadin Prognosis overall poor. Pallliative care to address overall goals of care. Dispo telemetry level of care. Plan discussed with patient and nursing Dispo planning to SNF vs LTAC pending pleurex plans/pulmonary/nephrology input and clinical improved. Discussed with patient and nursing.
[2019-01-22 08:25] LABS: POTASSIUM 2.8 mmol/L (3.5-5.1)
[2019-01-22] MEDS: WARFARIN NA 5 MG TABLET (UD) PO SCH (08:44)
--- NOTE | 2019-01-22 08:44 | PN ---
Progress Note (short form) - Note Progress Note: Hospitalist to document today. Very alert and aware with no SOB at rest. Eating most of his breakfast. K 2.8; will Rx with 10meq IV KCL X2. Hoping for post hospital SNF with dialysis in house.
[2019-01-22] MEDS ORDERED: POTASSIUM CHLORIDE TABS 20 MEQ TABLET.ER (FP) PO ONE (09:30)
[2019-01-22] MEDS: KCL 10 MEQ IVPB 10 MEQ/100 ML INFUS.BAG IVPB SCH ×2 (09:40→10:40)
[2019-01-22] MEDS ORDERED: KCL 10 MEQ IVPB 10 MEQ/100 ML INFUS.BAG IVPB SCH (11:00)
--- NOTE | 2019-01-22 11:30 | PN ---
Progress Note, Physician History of Present Illness: Pt seen and examined at bedside. He is awake and alert. He feels that his breathing is improved. - Current Medication List Current Medications: Active Medications Artificial Tears (Artificial Tears) 1 drop OU Q8H PRN PRN Reason: DRY EYES Epoetin Denny (Procrit -) 10,000 unit IVPUSH ONCE ONE Stop: 01/22/19 14:05 Sodium Chloride (Normal Saline -) 250 mls @ 3,000 mls/hr IV PRN PRN PRN Reason: Hypotension during Dialysis Stop: 01/22/19 14:04 Potassium Chloride (Potassium Chloride 10 Meq Premix Ivpb -) 10 meq in 100 mls @ 100 mls/hr IVPB Q60M JAYCE Stop: 01/22/19 11:59 Rosuvastatin Calcium (Crestor -) 5 mg PO HS [facility] [place] Last Admin: 01/21/19 22:10 Dose: 5 mg Warfarin Sodium (Coumadin -) 5 mg PO DAILY@1800 JAYCE - Objective Vital Signs: Vital Signs Temperature 98.6 F 01/22/19 09:00 Pulse Rate 60 01/22/19 09:00 Respiratory Rate 21 H 01/22/19 09:00 Blood Pressure 96/60 01/22/19 09:00 O2 Sat by Pulse Oximetry (%) 100 01/22/19 09:00 Constitutional: Yes: Calm Eyes: Yes: Conjunctiva Clear HENT: Yes: Atraumatic Cardiovascular: Yes: S1, S2 Respiratory: Yes: On Nasal O2, Other (chest tube) Gastrointestinal: Yes: Soft Genitourinary: Yes: Incontinence, Oliguria Musculoskeletal: Yes: Muscle Weakness Edema: Yes Edema: LLE: 1+, RLE: 1+ Neurological: Yes: Oriented Psychiatric: Yes: Oriented Labs: CBC, BMP 01/22/19 05:30 01/22/19 05:30 INR, PTT INR 3.26 (0.83-1.09) H 01/22/19 05:30 Problem List - Problems (1) Tlmwq-ft-nxhrllr kidney injury Code(s): N17.9 - ACUTE KIDNEY FAILURE, UNSPECIFIED; N18.9 - CHRONIC KIDNEY DISEASE, UNSPECIFIED Qualifiers: Acute renal failure type: unspecified Chronic kidney disease stage: unspecified stage Qualified Code(s): N17.9 - Acute kidney failure, unspecified ; N18.9 - Chronic kidney disease, unspecified (2) Congestive heart failure Code(s): I50.9 - HEART FAILURE, UNSPECIFIED Qualifiers: Heart failure type: unspecified Heart failure chronicity: acute on chronic Qualified Code(s): I50.9 - Heart failure, unspecified Assessment/Plan Current Medications Generic Name Dose Route Start Last Admin Trade Name Freq PRN Reason Stop Dose Admin Artificial Tears 1 drop 01/17/19 20:23 Artificial Tears OU Q8H PRN DRY EYES Epoetin Denny 10,000 unit 01/22/19 14:04 Procrit - IVPUSH 01/22/19 14:05 ONCE ONE Sodium Chloride 250 mls @ 3,000 mls/hr 01/21/19 14:04 Normal Saline - IV 01/22/19 14:04 PRN PRN Hypotension during Dialysis Potassium Chloride 10 meq in 100 mls @ 100 mls/hr 01/22/19 11:00 Potassium Chloride 10 Meq Premix Ivpb - IVPB 01/22/19 11:59 Q60M JAYCE Rosuvastatin Calcium 5 mg 01/17/19 22:00 01/21/19 22:10 Crestor - PO 5 mg HS JAYCE Administration Warfarin Sodium 5 mg 01/22/19 18:00 Coumadin - PO DAILY@1800 JAYCE Impression 1. ANGELA 2. CKD 3. CHF 4. hypotension 5. resp failure requiring bipap 6. a-fib 7. hld 8. bilateral pleural effusions 9. anemia 10. hypokalemia Plan - replace potassium - check mag level - will arrange for HD tomorrow with 3 k bath - chest tube is still draining, will stay in for now, discussed with pulmonary - renal diet - avoid nsaids - repeat potassium after supplements
--- NOTE | 2019-01-22 12:57 | PN ---
Progress Note, Physician History of Present Illness: Dyspnea improved, O2 requirement weaned to NC, hemodynamics stable, tolerated HD via PC. Left chest tube in place. Toprol held for bradycardia and hypotension. - Current Medication List Current Medications: Active Medications Artificial Tears (Artificial Tears) 1 drop OU Q8H PRN PRN Reason: DRY EYES Epoetin Denny (Procrit -) 10,000 unit IVPUSH ONCE ONE Stop: 01/22/19 14:05 Sodium Chloride (Normal Saline -) 250 mls @ 3,000 mls/hr IV PRN PRN PRN Reason: Hypotension during Dialysis Stop: 01/22/19 14:04 Rosuvastatin Calcium (Crestor -) 5 mg PO HS JAYCE Last Admin: 01/21/19 22:10 Dose: 5 mg Warfarin Sodium (Coumadin -) 5 mg PO DAILY@1800 JAYCE - Objective Vital Signs: Vital Signs Temperature 98.6 F 01/22/19 09:00 Pulse Rate 60 01/22/19 09:00 Respiratory Rate 21 H 01/22/19 09:00 Blood Pressure 96/60 01/22/19 09:00 O2 Sat by Pulse Oximetry (%) 100 01/22/19 09:00 Constitutional: Yes: No Distress, Calm, Thin Neck: Yes: Supple Cardiovascular: Yes: Pulse Irregular Respiratory: Yes: Regular, Diminished, On Nasal O2, Other (Left chest tube in place) Gastrointestinal: Yes: Normal Bowel Sounds, Soft Edema: No Labs: CBC, BMP 01/22/19 05:30 01/22/19 05:30 INR, PTT INR 3.26 (0.83-1.09) H 01/22/19 05:30 - ....Imaging EKG: Report Reviewed (Tele: NSR) Problem List - Problems (1) Lswik-ev-zzrajxz kidney injury Code(s): N17.9 - ACUTE KIDNEY FAILURE, UNSPECIFIED; N18.9 - CHRONIC KIDNEY DISEASE, UNSPECIFIED Qualifiers: Acute renal failure type: unspecified Chronic kidney disease stage: unspecified stage Qualified Code(s): N17.9 - Acute kidney failure, unspecified ; N18.9 - Chronic kidney disease, unspecified (2) Acute on chronic diastolic (congestive) heart failure Code(s): I50.33 - ACUTE ON CHRONIC DIASTOLIC (CONGESTIVE) HEART FAILURE (3) CAD (coronary artery disease) Code(s): I25.10 - ATHSCL HEART DISEASE OF [place] CORONARY ARTERY W/O ANG PCTRS Qualifiers: Coronary Disease-Associated Artery/Lesion type: [place] artery [place] vs. transplanted heart: [place] heart Associated angina: without angina Qualified Code(s): I25.10 - Atherosclerotic heart disease of [place] coronary artery without angina pectoris (4) COPD (chronic obstructive pulmonary disease) Code(s): J44.9 - CHRONIC OBSTRUCTIVE PULMONARY DISEASE, UNSPECIFIED Qualifiers: COPD type: unspecified COPD Qualified Code(s): J44.9 - Chronic obstructive pulmonary disease, unspecified (5) Chronic anemia Code(s): D64.9 - ANEMIA, UNSPECIFIED (6) Chronic anticoagulation Code(s): Z79.01 - DIRECTOR HEALTH (CURRENT) USE OF ANTICOAGULANTS (7) HTN (hypertension) Code(s): I10 - ESSENTIAL (PRIMARY) HYPERTENSION Qualifiers: Hypertension type: essential hypertension Qualified Code(s): I10 - Essential (primary) hypertension (8) Hx of CABG Code(s): Z95.1 - PRESENCE OF AORTOCORONARY BYPASS GRAFT (9) SOB (shortness of breath) Code(s): R06.02 - SHORTNESS OF BREATH (10) Status post insertion of drug-eluting stent into left anterior descending ( LAD) artery Code(s): Z95.5 - PRESENCE OF CORONARY ANGIOPLASTY IMPLANT AND GRAFT (11) Anemia Code(s): D64.9 - ANEMIA, UNSPECIFIED Qualifiers: Anemia type: unspecified type Qualified Code(s): D64.9 - Anemia, unspecified (12) Atrial fibrillation Code(s): I48.91 - UNSPECIFIED ATRIAL FIBRILLATION Qualifiers: Atrial fibrillation type: permanent Qualified Code(s): I48.2 - Chronic atrial fibrillation (13) Hyperlipidemia Code(s): E78.5 - HYPERLIPIDEMIA, UNSPECIFIED Qualifiers: Hyperlipidemia type: pure hypercholesterolemia Qualified Code(s): E78.00 - Pure hypercholesterolemia, unspecified; E78.0 - Pure hypercholesterolemia (14) Subendocardial ischemia Code(s): I24.8 - OTHER FORMS OF ACUTE ISCHEMIC HEART DISEASE Assessment/Plan 12/31/2018 Echo: Normal LV size and fxn LVEF 60%, mod dilated RV with mild decreased RV fxn, mild-mod AUTUMN, mild MR, mod TR RVSP 31 mmHg 1. Acute Hypoxic Respiratory Failure 2. Acute on chronic diastolic heart failure with pleural effusion post left chest tube drainage 3. CAD post CABG/PCI (stent) evidence of demand ischemia angina pectoris 4. Persistent atrial fibrillation [id number] score of 5 on Coumadin therapy with supratherapeutic INR 5. Hypertension 6. Hypercholesterolemia 7. MR mild to moderate in severity 8. TR moderate in severity 9. Carotid stenosis, moderate in severity 10. COPD 11. Acute on chronic kidney disease, currently on HD via PC 12. Anemia and thrombocytopenia PLAN: 1. Currently not on beta mukesh due to low BP 2. Ideally should be on ACEI or ARBS as hemodynamics tolerate, pending renal function stabilization 3. Continue Crestor 5 mg QHS 4. Left chest tube/pigtail management per ICU team 5. HD via PC per renal service, replete K 6. Dose coumadin per INR
[2019-01-22 13:23] LABS: ANION GAP 7 MMOL/L (8-16); BLOOD UREA NITROGEN 63 mg/dL (7-18); CALCIUM 7.7 mg/dL (8.5-10.1); CHLORIDE 99 mmol/L (98-107); CO2 28 mmol/L (21-32); CREATININE 4.9 mg/dL (0.55-1.3); GLUCOSE,RANDOM 104 mg/dL (74-106); MAGNESIUM 2.2 mg/dL (1.8-2.4); POTASSIUM 3.1 mmol/L (3.5-5.1); SODIUM 135 mmol/L (136-145)
--- NOTE | 2019-01-22 13:40 | PN ---
Progress Note (short form) - Note Progress Note: PULMONARY Breathing continues to improve. Chest tube with >1L output yesterday. Vital Signs Period Temp Pulse Resp BP Sys/Ascencio Pulse Ox Last 24 Hr 97.7 F-98.6 F 52-64 21-24 88-101/48-60 100-100 Gen: NAD at rest Heart: RRR Lung: decreased breath sounds at the bases Abd: soft, nontender Ext: no edema CBC, BMP 01/22/19 05:30 01/22/19 12:45 Active Medications Artificial Tears (Artificial Tears) 1 drop OU Q8H PRN PRN Reason: DRY EYES Epoetin Denny (Procrit -) 10,000 unit IVPUSH ONCE ONE Stop: 01/22/19 14:05 Sodium Chloride (Normal Saline -) 250 mls @ 3,000 mls/hr IV PRN PRN PRN Reason: Hypotension during Dialysis Stop: 01/22/19 14:04 Rosuvastatin Calcium (Crestor -) 5 mg PO HS JAYCE Last Admin: 01/21/19 22:10 Dose: 5 mg Warfarin Sodium (Coumadin -) 5 mg PO DAILY@1800 JAYCE A/P Acute Hypoxic Respiratory Failure improving Acute on Chronic Diastolic Heart Failure Volume Overload Atrial Fibrillation Acute on Chronic Renal Failure requiring HD COPD Anemia Hypercholesterolemia Thrombocytopenia - monitor chest tube output - HD per renal - continue anticoagulation - rate controlled - daily weights - replete lytes - O2 to keep SpO2 >90% - rate control
[2019-01-22] MEDS ORDERED: EPOETIN ALFA 2,000 UNIT/1 ML VIAL IVPUSH ONE (14:04)
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
[2019-01-22] MEDS ORDERED: WARFARIN NA 2.5 MG TABLET (FP) PO SCH (18:00)
[2019-01-22] MEDS ORDERED: PT OWN MED DRAWER 7, Y5N ONE (21:20)
[2019-01-22] MEDS: ROSUVASTATIN CA 5 MG TABLET (FP) PO SCH (21:25)
[2019-01-23 06:30] LABS: HEMATOCRIT 24.4 % (35.4-49); HEMOGLOBIN 8.2 GM/dL (11.7-16.9); MCH 32.5 pg (25.7-33.7); MCHC 33.7 g/dl (32.0-35.9); MEAN CELL VOLUME 96.2 fl (80-96); MEAN PLT VOLUME 8.1 fl (7.5-11.1); PLATELET COUNT 141 K/MM3 (134-434); RBC 2.54 M/mm3 (4.00-5.60); RDW 16.3 % (11.9-15.9); WHITE BLOOD COUNT 4.7 K/mm3 (4.0-10.0)
[2019-01-23 06:56] LABS: ACTIVATED PTT 49.7 SECONDS (25.2-36.5)
[2019-01-23 07:31] LABS: ALBUMIN 2.6 g/dl (3.4-5.0); ALK PHOS 143 U/L (45-117); ANION GAP 10 MMOL/L (8-16); BILIRUBIN,TOTAL 0.3 mg/dL (0.2-1); BLOOD UREA NITROGEN 75 mg/dL (7-18); CALCIUM 7.8 mg/dL (8.5-10.1); CHLORIDE 101 mmol/L (98-107); CO2 24 mmol/L (21-32); CREATININE 5.4 mg/dL (0.55-1.3); GLUCOSE,RANDOM 88 mg/dL (74-106); MAGNESIUM 2.3 mg/dL (1.8-2.4); POTASSIUM 3.2 mmol/L (3.5-5.1); SGOT/AST 40 U/L (15-37); SGPT/ALT 21 U/L (13-61); SODIUM 136 mmol/L (136-145); TOT PROT 5.9 g/dl (6.4-8.2)
[2019-01-23 09:02] LABS: INR 3.08 (0.83-1.09); PROTHROMBIN TIME (PATIENT) 36.8 SEC (9.7-13.0)
[2019-01-23] MEDS ORDERED: SODIUM CHLORIDE 250 ML IV PRN (11:05)
[2019-01-23] MEDS ORDERED: EPOETIN ALFA 10,000 UNIT/1 ML VIAL IVPUSH ONE (11:15)
[2019-01-23] MEDS ORDERED: POTASSIUM CHLORIDE ORAL LIQUID 20 MEQ/15 ML PO ONE (12:00)
--- NOTE | 2019-01-23 12:18 | PN ---
Progress Note, Physician History of Present Illness: Dyspnea improved, O2 requirement weaned to NC, hemodynamics stable, tolerating HD via PC. Left chest tube in place with drainage. Toprol held for bradycardia and hypotension. - Current Medication List Current Medications: Active Medications Artificial Tears (Artificial Tears) 1 drop OU Q8H PRN PRN Reason: DRY EYES Rosuvastatin Calcium (Crestor -) 5 mg PO HS [facility] Last Admin: 01/22/19 21:25 Dose: 5 mg Warfarin Sodium (Coumadin -) 5 mg PO DAILY@1800 JAYCE - Objective Vital Signs: Vital Signs Temperature 98.2 F 01/23/19 11:25 Pulse Rate 52 L 01/23/19 11:30 Respiratory Rate 18 01/23/19 11:30 Blood Pressure 96/50 L 01/23/19 11:30 O2 Sat by Pulse Oximetry (%) 100 01/23/19 08:57 Constitutional: Yes: No Distress, Calm, Thin Neck: Yes: Supple Cardiovascular: Yes: Pulse Irregular Respiratory: Yes: Regular, Diminished, On Nasal O2, Other (Left chest tube) Gastrointestinal: Yes: Normal Bowel Sounds, Soft Edema: No Labs: CBC, BMP 01/23/19 05:30 01/23/19 05:30 INR, PTT INR 3.08 (0.83-1.09) H 01/23/19 05:30 Problem List - Problems (1) Hdtav-bj-iudljrg kidney injury Code(s): N17.9 - ACUTE KIDNEY FAILURE, UNSPECIFIED; N18.9 - CHRONIC KIDNEY DISEASE, UNSPECIFIED Qualifiers: Acute renal failure type: unspecified Chronic kidney disease stage: unspecified stage Qualified Code(s): N17.9 - Acute kidney failure, unspecified ; N18.9 - Chronic kidney disease, unspecified (2) Acute on chronic diastolic (congestive) heart failure Code(s): I50.33 - ACUTE ON CHRONIC DIASTOLIC (CONGESTIVE) HEART FAILURE (3) CAD (coronary artery disease) Code(s): I25.10 - ATHSCL HEART DISEASE OF [place] CORONARY ARTERY W/O ANG PCTRS Qualifiers: Coronary Disease-Associated Artery/Lesion type: [place] artery [place] vs. 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 OF ANTICOAGULANTS (7) HTN (hypertension) Code(s): I10 - ESSENTIAL (PRIMARY) HYPERTENSION Qualifiers: Hypertension type: essential hypertension Qualified Code(s): I10 - Essential (primary) hypertension (8) Hx of CABG Code(s): Z95.1 - PRESENCE OF AORTOCORONARY BYPASS GRAFT (9) SOB (shortness of breath) Code(s): R06.02 - SHORTNESS OF BREATH (10) Status post insertion of drug-eluting stent into left anterior descending ( LAD) artery Code(s): Z95.5 - PRESENCE OF CORONARY ANGIOPLASTY IMPLANT AND GRAFT (11) Anemia Code(s): D64.9 - ANEMIA, UNSPECIFIED Qualifiers: Anemia type: unspecified type Qualified Code(s): D64.9 - Anemia, unspecified (12) Atrial fibrillation Code(s): I48.91 - UNSPECIFIED ATRIAL FIBRILLATION Qualifiers: Atrial fibrillation type: permanent Qualified Code(s): I48.2 - Chronic atrial fibrillation (13) Hyperlipidemia Code(s): E78.5 - HYPERLIPIDEMIA, UNSPECIFIED Qualifiers: Hyperlipidemia type: pure hypercholesterolemia Qualified Code(s): E78.00 - Pure hypercholesterolemia, unspecified; E78.0 - Pure hypercholesterolemia (14) Subendocardial ischemia Code(s): I24.8 - OTHER FORMS OF ACUTE ISCHEMIC HEART DISEASE Assessment/Plan 12/31/2018 Echo: Normal LV size and fxn LVEF 60%, mod dilated RV with mild decreased RV fxn, mild-mod AUTUMN, mild MR, mod TR RVSP 31 mmHg 1. Acute Hypoxic Respiratory Failure 2. Acute on chronic diastolic heart failure with pleural effusion post left chest tube drainage 3. CAD post CABG/PCI (stent) evidence of demand ischemia angina pectoris 4. Persistent atrial fibrillation [id number] score of 5 on Coumadin therapy with therapeutic INR 5. Hypertension 6. Hypercholesterolemia 7. MR mild to moderate in severity 8. TR moderate in severity 9. Carotid stenosis, moderate in severity 10. COPD 11. Acute on chronic kidney disease, currently on HD via PC 12. Anemia and thrombocytopenia PLAN: 1. Currently not on beta mukesh due to low BP 2. Ideally should be on ACEI or ARBS as hemodynamics tolerate, pending renal function stabilization 3. Continue Crestor 5 mg QHS 4. Left chest tube/pigtail management per ICU team 5. HD via PC per renal service, replete K 6. Dose coumadin per INR
--- NOTE | 2019-01-23 12:59 | PN ---
Progress Note (short form) - Note Progress Note: Patient seen and examined in the SDICU. Awake and alert on NC O2. Reports feeling overall better. Still with significant drainage from the left pigtail (350cc). OBJECTIVE: Intake & Output 01/20/19 01/21/19 01/22/19 01/23/19 23:59 23:59 23:59 23:59 Intake Total 370 1330 780 Output Total 330 1140 400 350 Balance 40 190 380 -350 Weight 177 lb 8 oz 172 lb 1.6 oz 171 lb Last Vital Signs Temp Pulse Resp BP Pulse Ox 97.8 F 50 L 20 96/50 L 100 01/23/19 11:30 01/23/19 11:30 01/23/19 11:30 01/23/19 11:30 01/23/19 08:57 Active Medications Artificial Tears (Artificial Tears) 1 drop OU Q8H PRN PRN Reason: DRY EYES Rosuvastatin Calcium (Crestor -) 5 mg PO HS JAYCE Last Admin: 01/22/19 21:25 Dose: 5 mg Warfarin Sodium (Coumadin -) 5 mg PO DAILY@1800 JAYCE Gen: Awake and alert, less tachypneic Heart: RRR Lung: Right sided rales, decreased breath sounds on the left, left pigtail Abd: soft, nontender Ext: no edema Laboratory Results - last 24 hr 01/22/19 01/22/19 01/23/19 05:30 12:45 05:30 WBC 4.7 RBC 2.54 L Hgb 8.2 L Hct 24.4 L MCV 96.2 H MCH 32.5 MCHC 33.7 RDW 16.3 H Plt Count 141 MPV 8.1 PT with INR Cancelled INR Cancelled PTT (Actin FS) 50.1 H Sodium 135 L Potassium 3.1 L Chloride 99 Carbon Dioxide 28 Anion Gap 7 L BUN 63 H Creatinine 4.9 H Creat Clearance w eGFR 11.24 Random Glucose 104 Calcium 7.7 L Phosphorus Magnesium 2.2 Total Bilirubin AST ALT Alkaline Phosphatase Total Protein Albumin 01/23/19 01/23/19 01/23/19 05:30 05:30 05:30 WBC RBC Hgb Hct MCV MCH MCHC RDW Plt Count MPV PT with INR 36.80 H Cancelled INR 3.08 H Cancelled PTT (Actin FS) 49.7 H Sodium 136 Potassium 3.2 L Chloride 101 Carbon Dioxide 24 Anion Gap 10 BUN 75 H Creatinine 5.4 H Creat Clearance w eGFR 10.05 Random Glucose 88 Calcium 7.8 L Phosphorus 7.0 H Magnesium 2.3 Total Bilirubin 0.3 AST 40 H ALT 21 Alkaline Phosphatase 143 H Total Protein 5.9 L Albumin 2.6 L ASSESSMENT AND PLAN: Acute Hypoxic Respiratory Failure Acute on Chronic Diastolic Heart Failure Volume Overload Atrial Fibrillation Acute on Chronic Renal Failure requiring HD COPD Anemia Hypercholesterolemia Thrombocytopenia - Will leave left pigtail for now and monitor output - HD per renal with ultrafiltration - Coumadin with following of INR - Right effusion is radiographically improving. Will hold on right sided pleural catheter and maximize HD volume removal - Daily weights - O2 to keep SpO2 >90% - Rate control - Cardiac and Oximetry monitoring Dr Guevara
--- NOTE | 2019-01-23 15:13 | PN ---
Progress Note, Physician History of Present Illness: Pt seen and examined at bedside. He is awake and alert. He tolerated HD. - Current Medication List Current Medications: Active Medications Artificial Tears (Artificial Tears) 1 drop OU Q8H PRN PRN Reason: DRY EYES Rosuvastatin Calcium (Crestor -) 5 mg PO HS [facility] Last Admin: 01/22/19 21:25 Dose: 5 mg Warfarin Sodium (Coumadin -) 5 mg PO DAILY@1800 [facility] - Objective Vital Signs: Vital Signs Temperature 97.8 F 01/23/19 11:30 Pulse Rate 57 L 01/23/19 14:45 Respiratory Rate 18 01/23/19 14:45 Blood Pressure 109/55 L 01/23/19 14:45 O2 Sat by Pulse Oximetry (%) 100 01/23/19 08:57 Constitutional: Yes: Calm Eyes: Yes: Conjunctiva Clear HENT: Yes: Atraumatic Cardiovascular: Yes: S1, S2 Respiratory: Yes: Other (left side chest tube) Gastrointestinal: Yes: Soft Genitourinary: Yes: WNL Edema: Yes Edema: LLE: 1+, RLE: 1+ Neurological: Yes: Oriented Psychiatric: Yes: Oriented Labs: CBC, BMP 01/23/19 05:30 01/23/19 05:30 INR, PTT INR 3.08 (0.83-1.09) H 01/23/19 05:30 Problem List - Problems (1) [id number]-[id number] kidney injury Code(s): N17.9 - ACUTE KIDNEY FAILURE, UNSPECIFIED; N18.9 - CHRONIC KIDNEY DISEASE, UNSPECIFIED Qualifiers: Acute renal failure type: unspecified Chronic kidney disease stage: unspecified stage Qualified Code(s): N17.9 - Acute kidney failure, unspecified ; N18.9 - Chronic kidney disease, unspecified (2) Congestive heart failure Code(s): I50.9 - HEART FAILURE, UNSPECIFIED Qualifiers: Heart failure type: unspecified Heart failure chronicity: acute on chronic Qualified Code(s): I50.9 - Heart failure, unspecified Assessment/Plan Current Medications Generic Name Dose Route Start Last Admin Trade Name Freq PRN Reason Stop Dose Admin Artificial Tears 1 drop 01/17/19 20:23 Artificial Tears OU Q8H PRN DRY EYES Rosuvastatin Calcium 5 mg 01/17/19 22:00 01/22/19 21:25 Crestor - PO 5 mg HS JAYCE Administration Warfarin Sodium 5 mg 01/22/19 18:00 Coumadin - PO DAILY@1800 [facility] Laboratory Tests 01/23/19 05:30 Magnesium 2.3 Impression 1. ANGELA 2. CKD 3. CHF 4. hypotension 5. resp failure requiring bipap 6. a-fib 7. hld 8. bilateral pleural effusions 9. anemia 10. hypokalemia Plan - start sevelamer - replaced potassium - HD today - 3 k bath with HD - pulm follow up for chest tube - renal diet - avoid nsaids
--- NOTE | 2019-01-23 16:19 | PN ---
Physical Exam: SUBJECTIVE: Patient seen and examined, overall unchanged. OBJECTIVE: Vital Signs Period Temp Pulse Resp BP Sys/Ascencio Pulse Ox Last 24 Hr 97.8 F-98.4 F 48-64 18-22 93-118/46-73 100-100 Intake & Output 01/20/19 01/21/19 01/22/19 01/23/19 23:59 23:59 23:59 23:59 Intake Total 370 1330 780 Output Total 330 1140 400 350 Balance 40 190 380 -350 Weight 177 lb 8 oz 172 lb 1.6 oz 171 lb GENERAL: The patient is awake, alert, mild respiratory distress, able to talk in full sentences HEAD: Normal with no signs of trauma. EYES: PERRL, extraocular movements intact, sclera anicteric, conjunctiva clear. No ptosis. NECK: Trachea midline, full range of motion, supple. LUNGS: bibasilar rales L>R, improved air entry, occasional scattered rhonchi HEART: S1S2 irregular bradycardic ABDOMEN: Soft, nontender, nondistended, normoactive bowel sounds, no guarding, no rebound EXTREMITIES: trace pedal edema with chronic skin changes PSYCH: Normal mood, normal affect. SKIN: Warm, dry, normal turgor, no rashes or lesions noted Laboratory Results - last 24 hr 01/22/19 01/23/19 01/23/19 05:30 05:30 05:30 WBC 4.7 RBC 2.54 L Hgb 8.2 L Hct 24.4 L MCV 96.2 H MCH 32.5 MCHC 33.7 RDW 16.3 H Plt Count 141 MPV 8.1 PT with INR Cancelled 36.80 H INR Cancelled 3.08 H PTT (Actin FS) 50.1 H 49.7 H Sodium Potassium Chloride Carbon Dioxide Anion Gap BUN Creatinine Creat Clearance w eGFR Random Glucose Calcium Phosphorus Magnesium Total Bilirubin AST ALT Alkaline Phosphatase Total Protein Albumin 01/23/19 01/23/19 05:30 05:30 WBC RBC Hgb Hct MCV MCH MCHC RDW Plt Count MPV PT with INR Cancelled INR Cancelled PTT (Actin FS) Sodium 136 Potassium 3.2 L Chloride 101 Carbon Dioxide 24 Anion Gap 10 BUN 75 H Creatinine 5.4 H Creat Clearance w eGFR 10.05 Random Glucose 88 Calcium 7.8 L Phosphorus 7.0 H Magnesium 2.3 Total Bilirubin 0.3 AST 40 H ALT 21 Alkaline Phosphatase 143 H Total Protein 5.9 L Albumin 2.6 L Active Medications Generic Name Dose Route Start Last Admin Trade Name Brandon PRN Reason Stop Dose Admin Artificial Tears 1 drop 01/17/19 20:23 Artificial Tears OU Q8H PRN DRY EYES Rosuvastatin Calcium 5 mg 01/17/19 22:00 01/22/19 21:25 Crestor - PO 5 mg HS JAYCE Administration Sevelamer Carbonate 800 mg 01/23/19 17:30 Renvela - PO TIDCM JAY[facility] Warfarin Sodium 5 mg 01/22/19 18:00 Coumadin - PO DAILY@1800 [facility] ASSESSMENT/PLAN: 88 yom CAD s/p CABG (JHAVERI to mLAD, SVG to RPDA), s/p PCI/LUIS EDUARDO to LAD, persistent AF on Coumadin, diastolic dysfunction with h/o failure, HTN, hypercholesterolemia and carotid stenosis, 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 -Acute on chronic diastolic+/- systolic heart failure exacerbation (prior on lasix drip, now on HD) -Bilateral pleural effusions s/p left chest tube placement 01/13/2019 -Acute hypoxic repiratory failure -Cardiogenic shock off pressors (Prior on dobutamine then levophed drip) -Hypotension suspect cardiogenic -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, suspect cardiorenal from CHF -Perisistent Atrial fibrillation on coumadin -Anemia, suspect multifactorial from renal disease, blood draws, monitor for occult bleed -Coumadin coagulopathy -CAD s/p CABG (JHAVERI to mLAD, SVG to RPDA), s/p PCI/LUIS EDUARDO to LAD -HTN -HLD -Carotid stenosis Plan: Ongoing drainage from left chest tube. pulmonary input noted. Ongoing HD for fluid removal. Respiratory status improved.Bipap prn. HD per renal. s/p permacath 01/10 Metoprolol held given bradycardia and hypotension. Off heparin drip. INR noted, hold coumadin today Crestor. Resume ranexa as able. s/p 1 unit PRBC and IV iron, monitor. DVTPPX coumadin Prognosis overall poor. Pallliative care to address overall goals of care. Dispo telemetry level of care. Plan discussed with patient and nursing Dispo planning to SNF vs LTAC pending pleurex plans/pulmonary/nephrology input and clinical improved. Discussed with patient and nursing. Visit type - Emergency Visit Emergency Visit: Yes ED Registration Date: 12/30/18 Care time: The patient presented to the Emergency Department on the above date and was hospitalized for further evaluation of their emergent condition. - New Patient This patient is new to me today: No - Critical Care Critical Care patient: No - Discharge Referral Referred to [facility] Med P.C.: No
[2019-01-23] MEDS: SEVELAMER CARBONATE 800 MG TAB (FP) PO SCH (17:32)
[2019-01-23] MEDS: ROSUVASTATIN CA 5 MG TABLET (FP) PO SCH (22:17)
[2019-01-23] MEDS ORDERED: PT OWN MED DRAWER 7, Y5N ONE (23:15)
[2019-01-24 06:04] LABS: EOS % 2.7 % (0-4.5); HEMATOCRIT 24.3 % (35.4-49); HEMOGLOBIN 8.3 GM/dL (11.7-16.9); LYMPH % 14.2 % (8-40); MCH 32.6 pg (25.7-33.7); MEAN CELL VOLUME 95.9 fl (80-96); MEAN PLT VOLUME 7.8 fl (7.5-11.1); MONO % 12.3 % (3.8-10.2); NEUT % 68.8 % (42.8-82.8); PLATELET COUNT 140 K/MM3 (134-434); RBC 2.54 M/mm3 (4.00-5.60); WHITE BLOOD COUNT 3.7 K/mm3 (4.0-10.0)
[2019-01-24 06:28] LABS: INR 2.84 (0.83-1.09); PROTHROMBIN TIME (PATIENT) 33.9 SEC (9.7-13.0)
[2019-01-24 06:40] LABS: ANION GAP 8 MMOL/L (8-16); BLOOD UREA NITROGEN 46 mg/dL (7-18); CALCIUM 7.8 mg/dL (8.5-10.1); CHLORIDE 105 mmol/L (98-107); CO2 30 mmol/L (21-32); CREATININE 3.8 mg/dL (0.55-1.3); GLUCOSE,RANDOM 89 mg/dL (74-106); POTASSIUM 3.3 mmol/L (3.5-5.1); SODIUM 143 mmol/L (136-145)
[2019-01-24] MEDS: SEVELAMER CARBONATE 800 MG TAB (FP) PO SCH ×3 (09:36→17:59)
--- NOTE | 2019-01-24 09:38 | PN ---
Progress Note (short form) - Note Progress Note: Hospitalist to document today. Patient alert and aware tolerating meals; BP low normal range and ongoing issues with K+. INR therapeutic range today. Some progress with Pysical Therapy yesterday. Main area of decision is timing of the removal of the pigtail catheter from his left chest effusion site. He is accepted to the [facility] which has an inhouse dialysis unit.
--- NOTE | 2019-01-24 10:33 | PN ---
Progress Note, Physician History of Present Illness: Dyspnea improved, O2 requirement weaned to NC, hemodynamics stable, tolerating HD via PC. Left chest tube in place with drainage. Toprol held for bradycardia and hypotension. - Current Medication List Current Medications: Active Medications Artificial Tears (Artificial Tears) 1 drop OU Q8H PRN PRN Reason: DRY EYES Rosuvastatin Calcium (Crestor -) 5 mg PO HS [facility] Last Admin: 01/23/19 22:17 Dose: 5 mg Sevelamer Carbonate (Renvela -) 800 mg PO TIDCM [facility] Last Admin: 01/24/19 09:36 Dose: 800 mg Warfarin Sodium (Coumadin -) 5 mg PO DAILY@1800 [facility] - Objective Vital Signs: Vital Signs Temperature 98.4 F 01/24/19 02:00 Pulse Rate 60 01/24/19 09:00 Respiratory Rate 16 01/24/19 09:00 Blood Pressure 120/34 L 01/24/19 09:00 O2 Sat by Pulse Oximetry (%) 100 01/23/19 21:00 Constitutional: Yes: No Distress, Calm, Thin Neck: Yes: Supple Cardiovascular: Yes: Pulse Irregular Respiratory: Yes: Regular, Diminished, On Nasal O2, Other (Left chest tube in place) Gastrointestinal: Yes: Normal Bowel Sounds, Soft Edema: No Labs: CBC, BMP 01/24/19 05:30 01/24/19 05:30 INR, PTT INR 2.84 (0.83-1.09) H 01/24/19 05:30 Problem List - Problems (1) Zmtzz-ym-xlevufo kidney injury Code(s): N17.9 - ACUTE KIDNEY FAILURE, UNSPECIFIED; N18.9 - CHRONIC KIDNEY DISEASE, UNSPECIFIED Qualifiers: Acute renal failure type: unspecified Chronic kidney disease stage: unspecified stage Qualified Code(s): N17.9 - Acute kidney failure, unspecified ; N18.9 - Chronic kidney disease, unspecified (2) Acute on chronic diastolic (congestive) heart failure Code(s): I50.33 - ACUTE ON CHRONIC DIASTOLIC (CONGESTIVE) HEART FAILURE (3) CAD (coronary artery disease) Code(s): I25.10 - ATHSCL HEART DISEASE OF [place] CORONARY ARTERY W/O ANG PCTRS Qualifiers: Coronary Disease-Associated Artery/Lesion type: [place] artery [place] vs. transplanted heart: [place] heart Associated angina: without angina Qualified Code(s): I25.10 - Atherosclerotic heart disease of [place] coronary artery without angina pectoris (4) COPD (chronic obstructive pulmonary disease) Code(s): J44.9 - CHRONIC OBSTRUCTIVE PULMONARY DISEASE, UNSPECIFIED Qualifiers: COPD type: unspecified COPD Qualified Code(s): J44.9 - Chronic obstructive pulmonary disease, unspecified (5) Chronic anemia Code(s): D64.9 - ANEMIA, UNSPECIFIED (6) Chronic anticoagulation Code(s): Z79.01 - ALF (CURRENT) USE OF ANTICOAGULANTS (7) HTN (hypertension) Code(s): I10 - ESSENTIAL (PRIMARY) HYPERTENSION Qualifiers: Hypertension type: essential hypertension Qualified Code(s): I10 - Essential (primary) hypertension (8) Hx of CABG Code(s): Z95.1 - PRESENCE OF AORTOCORONARY BYPASS GRAFT (9) SOB (shortness of breath) Code(s): R06.02 - SHORTNESS OF BREATH (10) Status post insertion of drug-eluting stent into left anterior descending ( LAD) artery Code(s): Z95.5 - PRESENCE OF CORONARY ANGIOPLASTY IMPLANT AND GRAFT (11) Anemia Code(s): D64.9 - ANEMIA, UNSPECIFIED Qualifiers: Anemia type: unspecified type Qualified Code(s): D64.9 - Anemia, unspecified (12) Atrial fibrillation Code(s): I48.91 - UNSPECIFIED ATRIAL FIBRILLATION Qualifiers: Atrial fibrillation type: permanent Qualified Code(s): I48.2 - Chronic atrial fibrillation (13) Hyperlipidemia Code(s): E78.5 - HYPERLIPIDEMIA, UNSPECIFIED Qualifiers: Hyperlipidemia type: pure hypercholesterolemia Qualified Code(s): E78.00 - Pure hypercholesterolemia, unspecified; E78.0 - Pure hypercholesterolemia (14) Subendocardial ischemia Code(s): I24.8 - OTHER FORMS OF ACUTE ISCHEMIC HEART DISEASE Assessment/Plan 12/31/2018 Echo: Normal LV size and fxn LVEF 60%, mod dilated RV with mild decreased RV fxn, mild-mod AUTUMN, mild MR, mod TR RVSP 31 mmHg 1. Acute Hypoxic Respiratory Failure 2. Acute on chronic diastolic heart failure with pleural effusion post left chest tube drainage 3. CAD post CABG/PCI (stent) evidence of demand ischemia angina pectoris 4. Persistent atrial fibrillation [id number] score of 5 on Coumadin therapy with therapeutic INR 5. Hypertension 6. Hypercholesterolemia 7. MR mild to moderate in severity 8. TR moderate in severity 9. Carotid stenosis, moderate in severity 10. COPD 11. Acute on chronic kidney disease, currently on HD via PC 12. Anemia and thrombocytopenia PLAN: 1. Currently not on beta mukesh due to low BP 2. Ideally should be on ACEI or ARBS as hemodynamics tolerate, pending renal function stabilization 3. Continue Crestor 5 mg QHS 4. Left chest tube/pigtail management per ICU team 5. HD via PC per renal service, replete K 6. Dose coumadin per INR 7. D/c planning to SNF with HD
--- NOTE | 2019-01-24 10:48 | PN ---
Progress Note (short form) - Note Progress Note: Patient seen and examined in the SDICU. Awake and alert on NC O2. No change from yesterday. Still with drainage from the left pigtail, 85cc / 420cc yesterday. OBJECTIVE: Intake & Output 01/21/19 01/22/19 01/23/19 01/24/19 23:59 23:59 23:59 23:59 Intake Total 1330 780 Output Total 1140 400 420 85 Balance 190 380 -420 -85 Weight 172 lb 1.6 oz 171 lb Last Vital Signs Temp Pulse Resp BP Pulse Ox 98.6 F 60 16 120/34 L 100 01/24/19 09:00 01/24/19 09:00 01/24/19 09:00 01/24/19 09:00 01/23/19 21:00 Active Medications Artificial Tears (Artificial Tears) 1 drop OU Q8H PRN PRN Reason: DRY EYES Rosuvastatin Calcium (Crestor -) 5 mg PO HS [facility] Last Admin: 01/23/19 22:17 Dose: 5 mg Sevelamer Carbonate (Renvela -) 800 mg PO TIDCM [facility] Last Admin: 01/24/19 09:36 Dose: 800 mg Warfarin Sodium (Coumadin -) 5 mg PO DAILY@1800 JAYCE Gen: Awake and alert, less tachypneic Heart: RRR Lung: Right sided rales, decreased breath sounds on the left, left pigtail Abd: soft, nontender Ext: no edema Laboratory Results - last 24 hr 01/24/19 01/24/19 01/24/19 05:30 05:30 05:30 WBC 3.7 L RBC 2.54 L Hgb 8.3 L Hct 24.3 L MCV 95.9 MCH 32.6 MCHC 34.0 RDW 16.0 H Plt Count 140 MPV 7.8 Absolute Neuts (auto) 2.5 Neutrophils % 68.8 Lymphocytes % 14.2 Monocytes % 12.3 H Eosinophils % 2.7 Basophils % 2.0 Nucleated RBC % 0 PT with INR 33.90 H INR 2.84 H Sodium 143 Potassium 3.3 L Chloride 105 Carbon Dioxide 30 Anion Gap 8 BUN 46 H Creatinine 3.8 H Creat Clearance w eGFR 15.07 Random Glucose 89 Calcium 7.8 L ASSESSMENT AND PLAN: Acute Hypoxic Respiratory Failure Acute on Chronic Diastolic Heart Failure Volume Overload Atrial Fibrillation Acute on Chronic Renal Failure requiring HD COPD Anemia Hypercholesterolemia Thrombocytopenia - Will leave left pigtail for now and monitor output - HD per renal with ultrafiltration - Coumadin with following of INR - Right effusion is radiographically improving. Will hold on right sided pleural catheter and maximize HD volume removal - Daily weights - O2 to keep SpO2 >90% - Rate control - Cardiac and Oximetry monitoring Dr Guevara
[2019-01-24] MEDS ORDERED: POTASSIUM CHLORIDE ORAL LIQUID 20 MEQ/15 ML PO ONE (11:30)
--- NOTE | 2019-01-24 13:24 | PN ---
Teaching Attending Note Name of Resident: Galilea Chakraborty ATTENDING PHYSICIAN STATEMENT I saw and evaluated the patient. I reviewed the resident's note and discussed the case with the resident. I agree with the resident's findings and plan as documented with exceptions below. SUBJECTIVE: Patient seen and examined. No complaints. OBJECTIVE: Vital Signs Period Temp Pulse Resp BP Sys/Ascencio Pulse Ox Last 24 Hr 98.0 F-98.6 F 52-63 15-19 90-120/34-71 100-100 Intake & Output 01/21/19 01/22/19 01/23/19 01/24/19 23:59 23:59 23:59 23:59 Intake Total 1330 780 Output Total 1140 400 420 85 Balance 190 380 -420 -85 Weight 172 lb 1.6 oz 171 lb General: sitting in bed in no acute distress Chest: Bibasilar fine rales, L>R, positive air entry, better effort Abdomen:soft, NT, ND Extremities: trace pedal edema Home Medications Medication Instructions Recorded Ranolazine [Ranexa -] 500 mg PO BID 03/22/12 Cholecalciferol (Vitamin D3) 2,000 unit PO DAILY 03/13/18 [Vitamin D -] Vit A/Vit C/Vit E/Zinc/Copper 1 each PO DAILY 03/13/18 [Preservision Areds Tablet] Metoprolol Succinate [Toprol Xl] 25 mg PO DAILY 03/18/18 Losartan Potassium [Cozaar -] 25 mg PO DAILY tablet 10/06/18 Warfarin Sodium 5 mg PO HS 30 Days #30 tablet 10/06/18 Allopurinol [Zyloprim -] 150 mg PO DAILY 12/30/18 Furosemide [Lasix] 40 mg PO DAILY 12/30/18 Rosuvastatin [Crestor -] 3 mg PO HS 12/30/18 Active Medications Artificial Tears (Artificial Tears) 1 drop OU Q8H PRN PRN Reason: DRY EYES Rosuvastatin Calcium (Crestor -) 5 mg PO HS [facility] Last Admin: 01/23/19 22:17 Dose: 5 mg Sevelamer Carbonate (Renvela -) 800 mg PO TIDCM [facility] Last Admin: 01/24/19 09:36 Dose: 800 mg Warfarin Sodium (Coumadin -) 5 mg PO DAILY@1800 [facility] Laboratory Results - last 24 hr 04/10/0201/24/19 01/24/19 05:30 05:30 05:30 WBC 3.7 L RBC 2.54 L Hgb 8.3 L Hct 24.3 L MCV 95.9 MCH 32.6 MCHC 34.0 RDW 16.0 H Plt Count 140 MPV 7.8 Absolute Neuts (auto) 2.5 Neutrophils % 68.8 Lymphocytes % 14.2 Monocytes % 12.3 H Eosinophils % 2.7 Basophils % 2.0 Nucleated RBC % 0 PT with INR 33.90 H INR 2.84 H Sodium 143 Potassium 3.3 L Chloride 105 Carbon Dioxide 30 Anion Gap 8 BUN 46 H Creatinine 3.8 H Creat Clearance w eGFR 15.07 Random Glucose 89 Calcium 7.8 L Microbiology 01/13/19 15:00 Pleural Fluid Gram Stain - Final 01/13/19 15:00 Pleural Fluid Body Fluid Culture - Final NO GROWTH OF AEROBIC ORGANISMS AFTER 48 HOURS INCUBATION 01/13/19 15:00 Pleural Fluid Anaerobic Culture - Final NO ANAEROBES WERE ISOLATED 01/13/19 15:00 Pleural Fluid HESHAM Preparation - Preliminary 01/13/19 15:00 Pleural Fluid Fungal Culture - Preliminary 01/13/19 15:00 Pleural Fluid AFB Smear Concentration - Final 01/13/19 15:00 Pleural Fluid Mycobacterial Culture - Preliminary 12/31/18 12:00 Urine - Urine Lester Urine Culture - Final Enterococcus Faecalis ASSESSMENT AND PLAN: 88 yom CAD s/p CABG (JHAVERI to mLAD, SVG to RPDA), s/p PCI/LUIS EDUARDO to LAD, persistent AF on Coumadin, diastolic dysfunction with h/o failure, HTN, hypercholesterolemia and carotid stenosis, 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 -Acute on chronic diastolic+/- systolic heart failure exacerbation (prior on lasix drip, now on HD) -Bilateral pleural effusions s/p left chest tube placement 01/13/2019 -Acute hypoxic repiratory failure -Cardiogenic shock off pressors (Prior on dobutamine then levophed drip) -Hypotension suspect cardiogenic -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, suspect cardiorenal from CHF -Perisistent Atrial fibrillation on coumadin -Anemia, suspect multifactorial from renal disease, blood draws, monitor for occult bleed -Coumadin coagulopathy -CAD s/p CABG (JHAVERI to mLAD, SVG to RPDA), s/p PCI/LUIS EDUARDO to LAD -HTN -HLD -Carotid stenosis Plan: Ongoing drainage from left chest tube. Discussed with Dr. Guevara, plan for remove chest tube prior to dc. No current plans for right chest tube or pleurx Ongoing HD for fluid removal. Respiratory status improved.Off HFOT. Bipap prn. HD per renal. s/p permacath 01/10 Metoprolol held given bradycardia and hypotension. Off heparin drip. INR noted, resume coumadin given not plans for surgical intervention Crestor. Resume ranexa as able. s/p 1 unit PRBC and IV iron, monitor. DVTPPX coumadin Prognosis overall poor. Ongoing palliative care input to address overall goals of care. Dispo telemetry level of care. Plan discussed with patient and nursing Dispo planning Not a candidate for LTAC as discussed with CM. Plan for SNF early next week if no new events. Discussed with patient and nursing. Care co-ordinated with pulmonary.
--- NOTE | 2019-01-24 15:49 | PN ---
Progress Note, Physician History of Present Illness: Pt seen and examined at bedside. He is awake and alert. He still has the chest tube which is draining. - Current Medication List Current Medications: Active Medications Artificial Tears (Artificial Tears) 1 drop OU Q8H PRN PRN Reason: DRY EYES Rosuvastatin Calcium (Crestor -) 5 mg PO HS [facility] Last Admin: 01/23/19 22:17 Dose: 5 mg Sevelamer Carbonate (Renvela -) 800 mg PO TIDCM [facility] Last Admin: 01/24/19 13:42 Dose: 800 mg Warfarin Sodium (Coumadin -) 5 mg PO DAILY@1800 [facility] - Objective Vital Signs: Vital Signs Temperature 98.6 F 01/24/19 09:00 Pulse Rate 59 L 01/24/19 11:00 Respiratory Rate 18 01/24/19 11:00 Blood Pressure 99/51 L 01/24/19 11:00 O2 Sat by Pulse Oximetry (%) 100 01/24/19 11:00 Constitutional: Yes: Calm Eyes: Yes: Conjunctiva Clear HENT: Yes: Atraumatic Neck: Yes: Supple Cardiovascular: Yes: S1, S2 Respiratory: Yes: On Nasal O2, Other (chest tube) Gastrointestinal: Yes: Soft Genitourinary: Yes: WNL Musculoskeletal: Yes: Muscle Weakness Edema: Yes Edema: LLE: 1+, RLE: 1+ Integumentary: Yes: Venous Stasis Changes Neurological: Yes: Oriented Psychiatric: Yes: Oriented Labs: CBC, BMP 01/24/19 05:30 01/24/19 05:30 INR, PTT INR 2.84 (0.83-1.09) H 01/24/19 05:30 Problem List - Problems (1) Txlgj-wz-ibxxgwd kidney injury Code(s): N17.9 - ACUTE KIDNEY FAILURE, UNSPECIFIED; N18.9 - CHRONIC KIDNEY DISEASE, UNSPECIFIED Qualifiers: Acute renal failure type: unspecified Chronic kidney disease stage: unspecified stage Qualified Code(s): N17.9 - Acute kidney failure, unspecified ; N18.9 - Chronic kidney disease, unspecified (2) Congestive heart failure Code(s): I50.9 - HEART FAILURE, UNSPECIFIED Qualifiers: Heart failure type: unspecified Heart failure chronicity: acute on chronic Qualified Code(s): I50.9 - Heart failure, unspecified Assessment/Plan Current Medications Generic Name Dose Route Start Last Admin Trade Name Freq PRN Reason Stop Dose Admin Artificial Tears 1 drop 01/17/19 20:23 Artificial Tears OU Q8H PRN DRY EYES Rosuvastatin Calcium 5 mg 01/17/19 22:00 01/23/19 22:17 Crestor - PO 5 mg HS JAYCE Administration Sevelamer Carbonate 800 mg 01/23/19 17:30 01/24/19 13:42 Renvela - PO 800 mg TIDCM JAYCE Administration Warfarin Sodium 5 mg 01/22/19 18:00 Coumadin - PO DAILY@1800 JAYCE Impression 1. ANGELA 2. CKD 3. CHF 4. hypotension 5. resp failure requiring bipap 6. a-fib 7. hld 8. bilateral pleural effusions 9. anemia 10. hypokalemia Plan - HD in am - family have not decided on a center for HD - check phos in am - cont sevelamer - replace potassium - 3 k bath with HD - pulm follow up for chest tube - renal diet - avoid nsaids
[2019-01-24] MEDS: WARFARIN NA 5 MG TABLET (UD) PO SCH (17:59)
[2019-01-24] MEDS: ROSUVASTATIN CA 5 MG TABLET (FP) PO SCH (21:29)
[2019-01-25] MEDS ORDERED: SODIUM CHLORIDE 250 ML IV PRN (06:37)
[2019-01-25 07:03] LABS: INR 2.47 (0.83-1.09); PROTHROMBIN TIME (PATIENT) 29.4 SEC (9.7-13.0)
[2019-01-25 08:13] LABS: ALBUMIN 2.6 g/dl (3.4-5.0); ALK PHOS 114 U/L (45-117); ANION GAP 9 MMOL/L (8-16); BILIRUBIN,TOTAL 0.3 mg/dL (0.2-1); BLOOD UREA NITROGEN 60 mg/dL (7-18); CALCIUM 7.9 mg/dL (8.5-10.1); CHLORIDE 103 mmol/L (98-107); CO2 26 mmol/L (21-32); CREATININE 4.4 mg/dL (0.55-1.3); GLUCOSE,RANDOM 95 mg/dL (74-106); PHOSPHOROUS 5.9 mg/dL (2.5-4.9); POTASSIUM 3.2 mmol/L (3.5-5.1); SGOT/AST 32 U/L (15-37); SGPT/ALT 21 U/L (13-61); SODIUM 138 mmol/L (136-145); TOT PROT 5.8 g/dl (6.4-8.2)
[2019-01-25] MEDS: ALBUMIN HUMAN 25% 12.5 GM/50 ML VIAL IVPB SCH ×5 (08:13→10:08)
[2019-01-25] MEDS ORDERED: EPOETIN ALFA 10,000 UNIT/1 ML VIAL IVPUSH ONE (09:00)
--- NOTE | 2019-01-25 09:51 | PN ---
Progress Note, Physician Chief Complaint: Events noted Remains in ICU/telemetry History of Present Illness: Patient was seen and examined in ICU. Awake. Chart was reviewed No significant changes Being dialyzed this AM Appears comfortable - Current Medication List Current Medications: Active Medications Albumin Human (Albumin Human 25%) 12.5 gm IVPB Q30M [facility] Stop: 01/25/19 10:31 Last Admin: 01/25/19 08:14 Dose: 12.5 gm Artificial Tears (Artificial Tears) 1 drop OU Q8H PRN PRN Reason: DRY EYES Sodium Chloride (Normal Saline -) 250 mls @ 3,000 mls/hr IV PRN PRN PRN Reason: Hypotension during Dialysis Stop: 01/25/19 12:00 Rosuvastatin Calcium (Crestor -) 5 mg PO HS [facility] Last Admin: 01/24/19 21:29 Dose: 5 mg Sevelamer Carbonate (Renvela -) 800 mg PO TIDCM [facility] Last Admin: 01/24/19 17:59 Dose: 800 mg Warfarin Sodium (Coumadin -) 5 mg PO DAILY@1800 [facility] Last Admin: 01/24/19 17:59 Dose: 5 mg - Objective Vital Signs: Vital Signs Temperature 98.1 F 01/25/19 06:00 Pulse Rate 54 L 01/25/19 09:02 Respiratory Rate 21 H 01/25/19 09:02 Blood Pressure 98/43 L 01/25/19 09:02 O2 Sat by Pulse Oximetry (%) 99 01/24/19 21:00 Neck: Yes: Supple Cardiovascular: Yes: Pulse Irregular, S1, S2 Respiratory: Yes: Diminished Gastrointestinal: Yes: Normal Bowel Sounds, Soft. No: Tenderness Edema: No Labs: CBC, BMP 01/24/19 05:30 01/25/19 05:30 INR, PTT INR 2.47 (0.83-1.09) H 01/25/19 05:30 Problem List - Problems (1) Wdjnh-io-oipdyyy kidney injury Code(s): N17.9 - ACUTE KIDNEY FAILURE, UNSPECIFIED; N18.9 - CHRONIC KIDNEY DISEASE, UNSPECIFIED Qualifiers: Acute renal failure type: unspecified Chronic kidney disease stage: unspecified stage Qualified Code(s): N17.9 - Acute kidney failure, unspecified ; N18.9 - Chronic kidney disease, unspecified (2) Acute on chronic diastolic (congestive) heart failure Code(s): I50.33 - ACUTE ON CHRONIC DIASTOLIC (CONGESTIVE) HEART FAILURE (3) CAD (coronary artery disease) Code(s): I25.10 - ATHSCL HEART DISEASE OF [place] CORONARY ARTERY W/O ANG PCTRS Qualifiers: Coronary Disease-Associated Artery/Lesion type: [place] artery [place] vs. transplanted heart: [place] heart Associated angina: without angina Qualified Code(s): I25.10 - Atherosclerotic heart disease of [place] coronary artery without angina pectoris (4) COPD (chronic obstructive pulmonary disease) Code(s): J44.9 - CHRONIC OBSTRUCTIVE PULMONARY DISEASE, UNSPECIFIED Qualifiers: COPD type: unspecified COPD Qualified Code(s): J44.9 - Chronic obstructive pulmonary disease, unspecified (5) Chronic anemia Code(s): D64.9 - ANEMIA, UNSPECIFIED (6) HTN (hypertension) Code(s): I10 - ESSENTIAL (PRIMARY) HYPERTENSION Qualifiers: Hypertension type: essential hypertension Qualified Code(s): I10 - Essential (primary) hypertension (7) Hx of CABG Code(s): Z95.1 - PRESENCE OF AORTOCORONARY BYPASS GRAFT (8) Mitral regurgitation Code(s): I34.0 - NONRHEUMATIC MITRAL (VALVE) INSUFFICIENCY Qualifiers: Cardiac valve disease etiology: nonrheumatic Qualified Code(s): I34.0 - Nonrheumatic mitral (valve) insufficiency Assessment/Plan 1. Acute Hypoxic Respiratory Failure 2. Acute on chronic diastolic heart failure with pleural effusion post left chest tube drainage 3. CAD post CABG/PCI (stent) evidence of demand ischemia angina pectoris 4. Persistent atrial fibrillation [id number] score of 5 on Coumadin therapy with therapeutic INR 5. Hypertension 6. Hypercholesterolemia 7. MR mild to moderate in severity 8. TR moderate in severity 9. Carotid stenosis, moderate in severity 10. COPD 11. Acute on chronic kidney disease, currently on HD via PC 12. Anemia and thrombocytopenia PLAN: 1. Current medical therapy but not on any antihypertensives due to low BP 2. Ideally should be on ACEI or ARBS as hemodynamics tolerate, pending renal function stabilization 3. Continue Crestor 5 mg QHS 4. Left chest tube/pigtail management 5. HD via PC per renal service. Monitor renal function and electrolytes 6. Dose coumadin per INR 7. Eventual SNF placement Bakari Solitario MD
[2019-01-25] MEDS: SEVELAMER CARBONATE 800 MG TAB (FP) PO SCH ×3 (10:11→18:09)
--- NOTE | 2019-01-25 11:42 | PN ---
Progress Note (short form) - Note Progress Note: PULMONARY Breathing continues to improve. Still with significant drainage from chest tube. Vital Signs Period Temp Pulse Resp BP Sys/Ascencio Pulse Ox Last 24 Hr 98.1 F-98.5 F 41-67 17-24 80-103/34-55 99 Gen: NAD at rest Heart: RRR Lung: decreased breath sounds at the bases Abd: soft, nontender Ext: no edema CBC, BMP 01/24/19 05:30 01/25/19 05:30 Active Medications Artificial Tears (Artificial Tears) 1 drop OU Q8H PRN PRN Reason: DRY EYES Sodium Chloride (Normal Saline -) 250 mls @ 3,000 mls/hr IV PRN PRN PRN Reason: Hypotension during Dialysis Stop: 01/25/19 12:00 Rosuvastatin Calcium (Crestor -) 5 mg PO HS [facility] Last Admin: 01/24/19 21:29 Dose: 5 mg Sevelamer Carbonate (Renvela -) 800 mg PO TIDCM [facility] Last Admin: 01/25/19 10:11 Dose: Not Given Warfarin Sodium (Coumadin -) 5 mg PO DAILY@1800 [facility] Last Admin: 01/24/19 17:59 Dose: 5 mg A/P Acute Hypoxic Respiratory Failure improving Acute on Chronic Diastolic Heart Failure Volume Overload Atrial Fibrillation Acute on Chronic Renal Failure requiring HD COPD Anemia Hypercholesterolemia Thrombocytopenia - monitor chest tube output - HD per renal - continue anticoagulation - rate controlled - daily weights - replete lytes - O2 to keep SpO2 >90% - rate control
--- NOTE | 2019-01-25 14:07 | PN ---
Physical Exam: SUBJECTIVE: Patient seen and examined, no new complaints or dyspnea. OBJECTIVE: Vital Signs Period Temp Pulse Resp BP Sys/Ascencio Pulse Ox Last 24 Hr 98.1 F-98.5 F 41-67 17-24 80-103/34-55 99 Intake & Output 01/22/19 01/23/19 01/24/19 01/25/19 23:59 23:59 23:59 23:59 Intake Total 780 480 650 Output Total 400 420 180 230 Balance 380 -420 300 420 Weight 171 lb 172 lb 4.8 oz General: sitting in bed in no acute distress Chest: Bibasilar fine rales, L>R, positive air entry, better effort Abdomen:soft, NT, ND Extremities: trace pedal edema CVS: S1S2 irregular, bradycardic Laboratory Results - last 24 hr 01/25/19 01/25/19 05:30 05:30 PT with INR 29.40 H INR 2.47 H Sodium 138 Potassium 3.2 L Chloride 103 Carbon Dioxide 26 Anion Gap 9 BUN 60 H Creatinine 4.4 H Creat Clearance w eGFR 12.73 Random Glucose 95 Calcium 7.9 L Phosphorus 5.9 H Total Bilirubin 0.3 AST 32 ALT 21 Alkaline Phosphatase 114 Total Protein 5.8 L Albumin 2.6 L Active Medications Generic Name Dose Route Start Last Admin Trade Name Freq PRN Reason Stop Dose Admin Artificial Tears 1 drop 01/17/19 20:23 Artificial Tears OU Q8H PRN DRY EYES Rosuvastatin Calcium 5 mg 01/17/19 22:00 01/24/19 21:29 Crestor - PO 5 mg HS JAYCE Administration Sevelamer Carbonate 800 mg 01/23/19 17:30 01/25/19 12:37 Renvela - PO 800 mg TIDCM JAYCE Administration Warfarin Sodium 5 mg 01/22/19 18:00 01/24/19 17:59 Coumadin - PO 5 mg DAILY@1800 JAYCE Administration Home Medications Medication Instructions Recorded Ranolazine [Ranexa -] 500 mg PO BID 03/22/12 Cholecalciferol (Vitamin D3) 2,000 unit PO DAILY 03/13/18 [Vitamin D -] Vit A/Vit C/Vit E/Zinc/Copper 1 each PO DAILY 03/13/18 [Preservision Areds Tablet] Metoprolol Succinate [Toprol Xl] 25 mg PO DAILY 03/18/18 Losartan Potassium [Cozaar -] 25 mg PO DAILY tablet 10/06/18 Warfarin Sodium 5 mg PO HS 30 Days #30 tablet 10/06/18 Allopurinol [Zyloprim -] 150 mg PO DAILY 12/30/18 Furosemide [Lasix] 40 mg PO DAILY 12/30/18 Rosuvastatin [Crestor -] 3 mg PO HS 12/30/18 ASSESSMENT/PLAN: 88 yom CAD s/p CABG (JHAVERI to mLAD, SVG to RPDA), s/p PCI/LUIS EDUARDO to LAD, persistent AF on Coumadin, diastolic dysfunction with h/o failure, HTN, hypercholesterolemia and carotid stenosis, 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 -Acute on chronic diastolic+/- systolic heart failure exacerbation (prior on lasix drip, now on HD) -Bilateral pleural effusions s/p left chest tube placement 01/13/2019 -Acute hypoxic repiratory failure -Cardiogenic shock off pressors (Prior on dobutamine then levophed drip) -Hypotension suspect cardiogenic -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, suspect cardiorenal from CHF -Perisistent Atrial fibrillation on coumadin -Anemia, suspect multifactorial from renal disease, blood draws, monitor for occult bleed -Coumadin coagulopathy -CAD s/p CABG (JHAVERI to mLAD, SVG to RPDA), s/p PCI/LUIS EDUARDO to LAD -HTN -HLD -Carotid stenosis Plan: Ongoing drainage from left chest tube. Discussed with Dr. Guevara, plan for remove chest tube prior to dc. No current plans for right chest tube or pleurx Ongoing HD for fluid removal. Respiratory status improved.Off HFOT. Bipap prn. HD per renal. s/p permacath 01/10 Metoprolol held given bradycardia and hypotension. Off heparin drip. INR noted, resume coumadin given not plans for surgical intervention Crestor. Resume ranexa as able. s/p 1 unit PRBC and IV iron, monitor. DVTPPX coumadin Prognosis overall poor. Ongoing palliative care input to address overall goals of care. Dispo telemetry level of care. Plan discussed with patient and nursing Dispo planning Not a candidate for LTAC as discussed with CM. Plan for SNF early next week if no new events. Discussed with patient and nursing. Visit type - Emergency Visit Emergency Visit: Yes ED Registration Date: 12/30/18 Care time: The patient presented to the Emergency Department on the above date and was hospitalized for further evaluation of their emergent condition. - New Patient This patient is new to me today: No - Critical Care Critical Care patient: No - Discharge Referral Referred to [facility] Med P.C.: No
[2019-01-25] MEDS ORDERED: POTASSIUM CHLORIDE ORAL LIQUID 20 MEQ/15 ML PO ONE (15:15)
--- NOTE | 2019-01-25 16:11 | PN ---
Progress Note, Physician History of Present Illness: Pt seen and examined at bedside. He is out of bed to chair. He still has the chest tube. - Current Medication List Current Medications: Active Medications Artificial Tears (Artificial Tears) 1 drop OU Q8H PRN PRN Reason: DRY EYES Rosuvastatin Calcium (Crestor -) 5 mg PO HS [facility] Last Admin: 01/24/19 21:29 Dose: 5 mg Sevelamer Carbonate (Renvela -) 800 mg PO TIDCM [facility] Last Admin: 01/25/19 12:37 Dose: 800 mg Warfarin Sodium (Coumadin -) 5 mg PO DAILY@1800 [facility] Last Admin: 01/24/19 17:59 Dose: 5 mg - Objective Vital Signs: Vital Signs Temperature 97.9 F 01/25/19 13:00 Pulse Rate 57 L 01/25/19 13:00 Respiratory Rate 22 H 01/25/19 13:00 Blood Pressure 90/51 L 01/25/19 13:00 O2 Sat by Pulse Oximetry (%) 99 01/25/19 09:00 Constitutional: Yes: Calm Eyes: Yes: Conjunctiva Clear HENT: Yes: Atraumatic Neck: Yes: Supple Cardiovascular: Yes: S1, S2 Respiratory: Yes: On Nasal O2, Other (left side chest tube.) Gastrointestinal: Yes: Soft Genitourinary: Yes: Incontinence Musculoskeletal: Yes: Muscle Weakness Edema: Yes Edema: LLE: 1+, RLE: 1+ Neurological: Yes: Oriented Psychiatric: Yes: Oriented Labs: CBC, BMP 01/24/19 05:30 01/25/19 05:30 INR, PTT INR 2.47 (0.83-1.09) H 01/25/19 05:30 Problem List - Problems (1) [id number] kidney injury Code(s): N17.9 - ACUTE KIDNEY FAILURE, UNSPECIFIED; N18.9 - CHRONIC KIDNEY DISEASE, UNSPECIFIED Qualifiers: Acute renal failure type: unspecified Chronic kidney disease stage: unspecified stage Qualified Code(s): N17.9 - Acute kidney failure, unspecified ; N18.9 - Chronic kidney disease, unspecified (2) Congestive heart failure Code(s): I50.9 - HEART FAILURE, UNSPECIFIED Qualifiers: Heart failure type: unspecified Heart failure chronicity: acute on chronic Qualified Code(s): I50.9 - Heart failure, unspecified Assessment/Plan Current Medications Generic Name Dose Route Start Last Admin Trade Name Freq PRN Reason Stop Dose Admin Artificial Tears 1 drop 01/17/19 20:23 Artificial Tears OU Q8H PRN DRY EYES Rosuvastatin Calcium 5 mg 01/17/19 22:00 01/24/19 21:29 Crestor - PO 5 mg HS [facility] Administration Sevelamer Carbonate 800 mg 01/23/19 17:30 01/25/19 12:37 Renvela - PO 800 mg TIDCM [facility] Administration Warfarin Sodium 5 mg 01/22/19 18:00 01/24/19 17:59 Coumadin - PO 5 mg DAILY@1800 J[facility] Administration Laboratory Tests 01/25/19 05:30 Phosphorus 5.9 H Impression 1. ANGELA 2. CKD 3. CHF 4. hypotension 5. resp failure requiring bipap 6. a-fib 7. hld 8. bilateral pleural effusions 9. anemia 10. hypokalemia Plan - pt tolerated HD today - phos levels improving - cont sevelamer - replace potassium - 3 k bath with HD - pulm follow up for chest tube - replace potassium - renal diet - avoid nsaids
[2019-01-25] MEDS: WARFARIN NA 5 MG TABLET (UD) PO SCH (18:09)
[2019-01-25] MEDS ORDERED: PT OWN MED DRAWER 7, Y5N ONE (21:36)
[2019-01-25] MEDS: ROSUVASTATIN CA 5 MG TABLET (FP) PO SCH (21:38)
[2019-01-26 06:09] LABS: ALBUMIN 2.9 g/dl (3.4-5.0); ALK PHOS 101 U/L (45-117); ANION GAP 6 MMOL/L (8-16); BILIRUBIN,TOTAL 0.4 mg/dL (0.2-1); BLOOD UREA NITROGEN 37 mg/dL (7-18); CHLORIDE 104 mmol/L (98-107); CO2 29 mmol/L (21-32); CREATININE 3.3 mg/dL (0.55-1.3); GLUCOSE,RANDOM 91 mg/dL (74-106); POTASSIUM 3.1 mmol/L (3.5-5.1); SGOT/AST 26 U/L (15-37); SGPT/ALT 18 U/L (13-61); SODIUM 139 mmol/L (136-145); TOT PROT 5.9 g/dl (6.4-8.2)
--- NOTE | 2019-01-26 08:49 | PN ---
Progress Note, Physician Chief Complaint: Events noted Remains in ICU/telemetry History of Present Illness: Patient was seen and examined in ICU. Awake. Chart was reviewed No significant changes Feels better Appears comfortable - Current Medication List Current Medications: Active Medications Artificial Tears (Artificial Tears) 1 drop OU Q8H PRN PRN Reason: DRY EYES Rosuvastatin Calcium (Crestor -) 5 mg PO HS [facility] Last Admin: 01/25/19 21:38 Dose: 5 mg Sevelamer Carbonate (Renvela -) 800 mg PO TIDCM [facility] Last Admin: 01/25/19 18:09 Dose: 800 mg Warfarin Sodium (Coumadin -) 5 mg PO DAILY@1800 [facility] Last Admin: 01/25/19 18:09 Dose: 5 mg - Objective Vital Signs: Vital Signs Temperature 98.1 F 01/26/19 06:00 Pulse Rate 60 01/26/19 06:00 Respiratory Rate 23 H 01/26/19 06:00 Blood Pressure 89/47 L 01/26/19 06:00 O2 Sat by Pulse Oximetry (%) 94 L 01/25/19 21:00 Eyes: Yes: PERRL HENT: Yes: Atraumatic Neck: Yes: Supple Cardiovascular: Yes: Pulse Irregular, S1, S2 Respiratory: Yes: Diminished, Other (Chest tube) Gastrointestinal: Yes: Normal Bowel Sounds, Soft. No: Tenderness Edema: No Additional Findings/Remarks: - Review of Systems Constitutional: denies: Chills, Fever Cardiovascular: reports: Chest Pain. denies: Palpitations, (+) Shortness of Breath Respiratory: reports: Cough. denies: Hemoptysis, Orthopnea, PND, (+) SOB, SOB on Exertion Gastrointestinal: denies: Abdominal Pain, Constipation, Diarrhea, Melena, Nausea , Rectal Bleeding, Vomiting Neurological: denies: Dizziness, Headache, Seizure, Syncope Labs: CBC, BMP 01/24/19 05:30 01/26/19 05:30 INR, PTT INR 2.47 (0.83-1.09) H 01/25/19 05:30 Problem List - Problems (1) Zcquo-zi-jyprgvb kidney injury Code(s): N17.9 - ACUTE KIDNEY FAILURE, UNSPECIFIED; N18.9 - CHRONIC KIDNEY DISEASE, UNSPECIFIED Qualifiers: Acute renal failure type: unspecified Chronic kidney disease stage: unspecified stage Qualified Code(s): N17.9 - Acute kidney failure, unspecified ; N18.9 - Chronic kidney disease, unspecified (2) Acute on chronic diastolic (congestive) heart failure Code(s): I50.33 - ACUTE ON CHRONIC DIASTOLIC (CONGESTIVE) HEART FAILURE (3) CAD (coronary artery disease) Code(s): I25.10 - ATHSCL HEART DISEASE OF [place] CORONARY ARTERY W/O ANG PCTRS Qualifiers: Coronary Disease-Associated Artery/Lesion type: [place] artery [place] vs. transplanted heart: [place] heart Associated angina: without angina Qualified Code(s): I25.10 - Atherosclerotic heart disease of [place] coronary artery without angina pectoris (4) COPD (chronic obstructive pulmonary disease) Code(s): J44.9 - CHRONIC OBSTRUCTIVE PULMONARY DISEASE, UNSPECIFIED Qualifiers: COPD type: unspecified COPD Qualified Code(s): J44.9 - Chronic obstructive pulmonary disease, unspecified (5) Chronic anemia Code(s): D64.9 - ANEMIA, UNSPECIFIED (6) HTN (hypertension) Code(s): I10 - ESSENTIAL (PRIMARY) HYPERTENSION Qualifiers: Hypertension type: essential hypertension Qualified Code(s): I10 - Essential (primary) hypertension (7) Hx of CABG Code(s): Z95.1 - PRESENCE OF AORTOCORONARY BYPASS GRAFT (8) Mitral regurgitation Code(s): I34.0 - NONRHEUMATIC MITRAL (VALVE) INSUFFICIENCY Qualifiers: Cardiac valve disease etiology: nonrheumatic Qualified Code(s): I34.0 - Nonrheumatic mitral (valve) insufficiency Assessment/Plan 1. Acute Hypoxic Respiratory Failure 2. Acute on chronic diastolic heart failure with pleural effusion post left chest tube drainage 3. CAD post CABG/PCI (stent) evidence of demand ischemia angina pectoris 4. Persistent atrial fibrillation [id number] score of 5 on Coumadin therapy with therapeutic INR 5. Hypertension 6. Hypercholesterolemia 7. MR mild to moderate in severity 8. TR moderate in severity 9. Carotid stenosis, moderate in severity 10. COPD 11. Acute on chronic kidney disease, currently on HD via PC 12. Anemia and thrombocytopenia PLAN: 1. Current medical therapy but not on any antihypertensives due to low BP 2. Ideally should be on ACEI or ARBS as hemodynamics tolerate, pending renal function stabilization 3. Continue Crestor 5 mg QHS 4. Left chest tube/pigtail management 5. HD via PC per renal service. Monitor renal function and electrolytes 6. Dose Coumadin per INR 7. Eventual SNF placement Bakari Solitario MD
[2019-01-26] MEDS: SEVELAMER CARBONATE 800 MG TAB (FP) PO SCH ×3 (08:50→18:44)
--- NOTE | 2019-01-26 09:58 | PN ---
Progress Note (short form) - Note Progress Note: PULMONARY Breathing continues to improve. Still with drainage from chest tube. Vital Signs Period Temp Pulse Resp BP Sys/Ascencio Pulse Ox Last 24 Hr 97.9 F-98.4 F 50-64 18-25 75-105/34-51 94-98 Gen: NAD at rest Heart: RRR Lung: decreased breath sounds at the bases Abd: soft, nontender Ext: no edema CBC, BMP 01/24/19 05:30 01/26/19 05:30 Active Medications Artificial Tears (Artificial Tears) 1 drop OU Q8H PRN PRN Reason: DRY EYES Rosuvastatin Calcium (Crestor -) 5 mg PO HS [facility] Last Admin: 01/25/19 21:38 Dose: 5 mg Sevelamer Carbonate (Renvela -) 800 mg PO TIDCM [facility] Last Admin: 01/26/19 08:50 Dose: 800 mg Warfarin Sodium (Coumadin -) 5 mg PO DAILY@1800 [facility] Last Admin: 01/25/19 18:09 Dose: 5 mg A/P Acute Hypoxic Respiratory Failure improving Acute on Chronic Diastolic Heart Failure Volume Overload Atrial Fibrillation Acute on Chronic Renal Failure requiring HD COPD Anemia Hypercholesterolemia Thrombocytopenia - monitor chest tube output, will consider d/c in AM - HD per renal - continue anticoagulation - rate controlled - daily weights - replete lytes - O2 to keep SpO2 >90% - rate control
[2019-01-26 10:17] LABS: INR 3.37 (0.83-1.09); PROTHROMBIN TIME (PATIENT) 40.2 SEC (9.7-13.0)
[2019-01-26] MEDS ORDERED: POTASSIUM CHLORIDE ORAL LIQUID 20 MEQ/15 ML PO ONE (10:45)
--- NOTE | 2019-01-26 13:09 | PN ---
Physical Exam: SUBJECTIVE: Patient seen and examined, denies any dyspnea, dizziness or new complaints. OBJECTIVE: Vital Signs Period Temp Pulse Resp BP Sys/Ascencio Pulse Ox Last 24 Hr 98.1 F-98.4 F 50-60 20-25 75-105/39-47 94-98 Intake & Output 01/23/19 01/24/19 01/25/19 01/26/19 23:59 23:59 23:59 23:59 Intake Total 480 1050 Output Total 420 180 560 Balance -420 300 490 Weight 171 lb 172 lb 4.8 oz 172 lb 4.8 oz General: sitting in bed in no acute distress, having lunch Chest: Bibasilar fine rales, L>R, positive air entry, better effort Abdomen:soft, NT, ND Extremities: trace pedal edema CVS: S1S2 irregular, bradycardic psych: pleasant, co-operative Laboratory Results - last 24 hr 01/26/19 01/26/19 05:30 09:00 PT with INR 40.20 H INR 3.37 H Sodium 139 Potassium 3.1 L Chloride 104 Carbon Dioxide 29 Anion Gap 6 L BUN 37 H Creatinine 3.3 H Creat Clearance w eGFR 17.74 Random Glucose 91 Calcium 8.0 L Total Bilirubin 0.4 AST 26 ALT 18 Alkaline Phosphatase 101 Total Protein 5.9 L Albumin 2.9 L Active Medications Generic Name Dose Route Start Last Admin Trade Name Freq PRN Reason Stop Dose Admin Artificial Tears 1 drop 01/17/19 20:23 Artificial Tears OU Q8H PRN DRY EYES Rosuvastatin Calcium 5 mg 01/17/19 22:00 01/25/19 21:38 Crestor - PO 5 mg HS JAYCE Administration Sevelamer Carbonate 800 mg 01/23/19 17:30 01/26/19 11:40 Renvela - PO 800 mg TIDCM JAYCE Administration ASSESSMENT/PLAN: 88 yom CAD s/p CABG (JHAVERI to mLAD, SVG to RPDA), s/p PCI/LUIS EDUARDO to LAD, persistent AF on Coumadin, diastolic dysfunction with h/o failure, HTN, hypercholesterolemia and carotid stenosis, 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 -Acute on chronic diastolic+/- systolic heart failure exacerbation (prior on lasix drip, now on HD) -Bilateral pleural effusions s/p left chest tube placement 01/13/2019 -Acute hypoxic repiratory failure -Cardiogenic shock off pressors (Prior on dobutamine then levophed drip) -Hypotension suspect cardiogenic -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, suspect cardiorenal from CHF -Perisistent Atrial fibrillation on coumadin -Anemia, suspect multifactorial from renal disease, blood draws, monitor for occult bleed -Coumadin coagulopathy -CAD s/p CABG (JHAVERI to mLAD, SVG to RPDA), s/p PCI/LUIS EDUARDO to LAD -HTN -HLD -Carotid stenosis Plan: Pulmonary input noted, plan for Chest tube removal in 24 hours. No current plans for right chest tube or pleurx Ongoing HD for fluid removal. Respiratory status improved.Off HFOT. Bipap prn. HD per renal. s/p permacath 01/10 Metoprolol held given bradycardia and hypotension. Off heparin drip. INR noted, hold coumadin today. Will resume at lower dose once <3. Crestor. Resume ranexa as able. s/p 1 unit PRBC and IV iron, monitor. DVTPPX coumadin Prognosis overall poor. Ongoing palliative care input to address overall goals of care. Dispo telemetry level of care. Plan discussed with patient and nursing Dispo planning Not a candidate for LTAC as discussed with CM. Plan for SNF early next week if no new events. Discussed with patient. Visit type - Emergency Visit Emergency Visit: Yes ED Registration Date: 12/30/18 Care time: The patient presented to the Emergency Department on the above date and was hospitalized for further evaluation of their emergent condition. - New Patient This patient is new to me today: No - Critical Care Critical Care patient: No - Discharge Referral Referred to [facility] Med P.C.: No
--- NOTE | 2019-01-26 15:05 | PN ---
Progress Note, Physician History of Present Illness: Pt seen and examined at bedside. He is awake and alert. He denies any change in breathing. He is making little urine. - Current Medication List Current Medications: Active Medications Artificial Tears (Artificial Tears) 1 drop OU Q8H PRN PRN Reason: DRY EYES Rosuvastatin Calcium (Crestor -) 5 mg PO HS [facility] Last Admin: 01/25/19 21:38 Dose: 5 mg Sevelamer Carbonate (Renvela -) 800 mg PO TIDCM [facility] Last Admin: 01/26/19 11:40 Dose: 800 mg - Objective Vital Signs: Vital Signs Temperature 97.9 F 01/26/19 08:00 Pulse Rate 46 L 01/26/19 12:00 Respiratory Rate 25 H 01/26/19 12:00 Blood Pressure 80/39 L 01/26/19 12:00 O2 Sat by Pulse Oximetry (%) 94 L 01/26/19 09:00 Constitutional: Yes: Calm Eyes: Yes: Conjunctiva Clear HENT: Yes: Atraumatic Neck: Yes: Supple Cardiovascular: Yes: S1, S2 Respiratory: Yes: Other (left side chest tube) Gastrointestinal: Yes: Soft Genitourinary: Yes: WNL Musculoskeletal: Yes: Muscle Weakness Edema: Yes Edema: LLE: Trace, RLE: Trace Neurological: Yes: Oriented Psychiatric: Yes: Oriented Labs: CBC, BMP 01/24/19 05:30 01/26/19 05:30 INR, PTT INR 3.37 (0.83-1.09) H 01/26/19 09:00 Problem List - Problems (1) Sircu-ka-runzdfi kidney injury Code(s): N17.9 - ACUTE KIDNEY FAILURE, UNSPECIFIED; N18.9 - CHRONIC KIDNEY DISEASE, UNSPECIFIED Qualifiers: Acute renal failure type: unspecified Chronic kidney disease stage: unspecified stage Qualified Code(s): N17.9 - Acute kidney failure, unspecified ; N18.9 - Chronic kidney disease, unspecified (2) Congestive heart failure Code(s): I50.9 - HEART FAILURE, UNSPECIFIED Qualifiers: Heart failure type: unspecified Heart failure chronicity: acute on chronic Qualified Code(s): I50.9 - Heart failure, unspecified Assessment/Plan Current Medications Generic Name Dose Route Start Last Admin Trade Name Freq PRN Reason Stop Dose Admin Artificial Tears 1 drop 01/17/19 20:23 Artificial Tears OU Q8H PRN DRY EYES Rosuvastatin Calcium 5 mg 01/17/19 22:00 01/25/19 21:38 Crestor - PO 5 mg HS JAYCE Administration Sevelamer Carbonate 800 mg 01/23/19 17:30 01/26/19 11:40 Renvela - PO 800 mg TIDCM JAYCE Administration Impression 1. ANGELA 2. CKD 3. CHF 4. hypotension 5. resp failure requiring bipap 6. a-fib 7. hld 8. bilateral pleural effusions 9. anemia 10. hypokalemia 11. ESRD Plan - next HD on Sunday - family and patient want HD at [facility] - cont sevelamer - replace potassium - 3 k bath with HD - monitor chest tube drainage - renal diet - avoid nsaids
[2019-01-26] MEDS ORDERED: PT OWN MED DRAWER 7, Y5N ONE (21:22)
[2019-01-26] MEDS: ROSUVASTATIN CA 5 MG TABLET (FP) PO SCH (21:44)
[2019-01-27 05:58] LABS: INR 3.72 (0.83-1.09); PROTHROMBIN TIME (PATIENT) 44.5 SEC (9.7-13.0)
[2019-01-27 06:29] LABS: ANION GAP 7 MMOL/L (8-16); BLOOD UREA NITROGEN 49 mg/dL (7-18); CALCIUM 7.9 mg/dL (8.5-10.1); CHLORIDE 103 mmol/L (98-107); CO2 27 mmol/L (21-32); GLUCOSE,RANDOM 84 mg/dL (74-106); MAGNESIUM 2.1 mg/dL (1.8-2.4); PHOSPHOROUS 4.2 mg/dL (2.5-4.9); POTASSIUM 3.2 mmol/L (3.5-5.1); SODIUM 136 mmol/L (136-145)
--- NOTE | 2019-01-27 08:11 | PN ---
Teaching Attending Note Name of Resident: Galilea Chakraborty ATTENDING PHYSICIAN STATEMENT I saw and evaluated the patient. I reviewed the resident's note and discussed the case with the resident. I agree with the resident's findings and plan as documented with exceptions below. SUBJECTIVE: Patient seen and examined, no complaints. OBJECTIVE: Vital Signs Period Temp Pulse Resp BP Sys/Ascencio Pulse Ox Last 24 Hr 98 F-98.6 F 46-63 21-26 80-101/36-45 94-94 Intake & Output 01/24/19 01/25/19 01/26/19 01/27/19 23:59 23:59 23:59 23:59 Intake Total 480 1050 360 Output Total 180 560 120 Balance 300 490 360 -120 Weight 172 lb 4.8 oz 172 lb 4.8 oz General: sitting in bed in no acute distress Chest: bibasilar rales, L>R, improved exam and air entry Abdomen:soft, NT, Positive bowel sounds Extremities: trace pedal edema with varicosities CVS:S1S2 bradycardic Psych: pleasant, co-operative Home Medications Medication Instructions Recorded Ranolazine [Ranexa -] 500 mg PO BID 03/22/12 Cholecalciferol (Vitamin D3) 2,000 unit PO DAILY 03/13/18 [Vitamin D -] Vit A/Vit C/Vit E/Zinc/Copper 1 each PO DAILY 03/13/18 [Preservision Areds Tablet] Metoprolol Succinate [Toprol Xl] 25 mg PO DAILY 03/18/18 Losartan Potassium [Cozaar -] 25 mg PO DAILY tablet 10/06/18 Warfarin Sodium 5 mg PO HS 30 Days #30 tablet 10/06/18 Allopurinol [Zyloprim -] 150 mg PO DAILY 12/30/18 Furosemide [Lasix] 40 mg PO DAILY 12/30/18 Rosuvastatin [Crestor -] 3 mg PO HS 12/30/18 Laboratory Results - last 24 hr 01/26/19 01/27/19 01/27/19 09:00 05:30 05:30 PT with INR 40.20 H 44.50 H INR 3.37 H 3.72 H Sodium 136 Potassium 3.2 L Chloride 103 Carbon Dioxide 27 Anion Gap 7 L BUN 49 H Creatinine 4.0 H Creat Clearance w eGFR 14.21 Random Glucose 84 Calcium 7.9 L Phosphorus 4.2 Magnesium 2.1 Microbiology 01/13/19 15:00 Pleural Fluid Gram Stain - Final 01/13/19 15:00 Pleural Fluid Body Fluid Culture - Final NO GROWTH OF AEROBIC ORGANISMS AFTER 48 HOURS INCUBATION 01/13/19 15:00 Pleural Fluid Anaerobic Culture - Final NO ANAEROBES WERE ISOLATED 01/13/19 15:00 Pleural Fluid HESHAM Preparation - Preliminary 01/13/19 15:00 Pleural Fluid Fungal Culture - Preliminary 01/13/19 15:00 Pleural Fluid AFB Smear Concentration - Final 01/13/19 15:00 Pleural Fluid Mycobacterial Culture - Preliminary 12/31/18 12:00 Urine - Urine Lester Urine Culture - Final Enterococcus Faecalis ASSESSMENT AND PLAN: 88 yom CAD s/p CABG (JHAVERI to mLAD, SVG to RPDA), s/p PCI/LUIS EDUARDO to LAD, persistent AF on Coumadin, diastolic dysfunction with h/o failure, HTN, hypercholesterolemia and carotid stenosis, CKD stage II-III (last cr 1.8 in 2018)reportedly taken off lasix/aldactone, planned for PPM on 01/02 at [facility] admitted with progressive dypsnea, on HD now, with ongoing need for HFOT s/p Right chest tube placement 01/13/19. -Acute on chronic diastolic+/- systolic heart failure exacerbation (prior on lasix drip, now on HD) -Bilateral pleural effusions s/p left chest tube placement 01/13/2019 -Acute hypoxic repiratory failure -Cardiogenic shock off pressors (Prior on dobutamine then levophed drip) -Hypotension suspect cardiogenic -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, suspect cardiorenal from CHF -Perisistent Atrial fibrillation on coumadin -Anemia, suspect multifactorial from renal disease, blood draws, monitor for occult bleed -Coumadin coagulopathy -CAD s/p CABG (JHAVERI to mLAD, SVG to RPDA), s/p PCI/LUIS EDUARDO to LAD -HTN -HLD -Carotid stenosis Plan: Pulmonary input noted, discuss about chest tube removal today. No current plans for right chest tube or pleurx Ongoing HD for fluid removal. Respiratory status improved.Off HFOT. Bipap prn. HD per renal. s/p permacath 01/10 Metoprolol held given bradycardia and hypotension. Off heparin drip. INR noted, hold coumadin today. Will resume at lower dose once <3. Crestor. Resume ranexa as able. s/p 1 unit PRBC and IV iron, monitor. DVTPPX coumadin Prognosis overall poor. Ongoing palliative care input to address overall goals of care. Dispo telemetry level of care. Plan discussed with patient and nursing Dispo planning Not a candidate for LTAC as discussed with CM. Plan for SNF in 1- 2 days pending chest tube removal if no concerns. Discussed with patient.
[2019-01-27] MEDS: SEVELAMER CARBONATE 800 MG TAB (FP) PO SCH ×3 (08:29→17:31)
[2019-01-27] MEDS ORDERED: SODIUM CHLORIDE 250 ML IV PRN (08:30)
--- NOTE | 2019-01-27 09:36 | PN ---
Progress Note (short form) - Note Progress Note: Hospitalist to document today. Current decision making still centers on timing of removal of left sided pigtail catheter. Last 3 days of pleural fluid drainage are reported as 420,180 and 520 cc's. Tentatively accepted at [facility] and being reviewed at [facility] dialysis center. Expense of 3 trips a week to the dialysis center and back to SNF being paid for by patient.
--- NOTE | 2019-01-27 09:41 | PN ---
Progress Note, Physician Chief Complaint: Events noted Remains in ICU/telemetry History of Present Illness: Patient was seen and examined in ICU. Awake. Chart was reviewed No significant changes Feels better. Not in distress. Chest tube in place Appears comfortable - Current Medication List Current Medications: Active Medications Artificial Tears (Artificial Tears) 1 drop OU Q8H PRN PRN Reason: DRY EYES Rosuvastatin Calcium (Crestor -) 5 mg PO HS [facility] Last Admin: 01/26/19 21:44 Dose: 5 mg Sevelamer Carbonate (Renvela -) 800 mg PO TIDCM [facility] Last Admin: 01/27/19 08:29 Dose: 800 mg - Objective Vital Signs: Vital Signs Temperature 98 F 01/27/19 06:00 Pulse Rate 55 L 01/27/19 07:52 Respiratory Rate 21 H 01/27/19 07:52 Blood Pressure 96/41 L 01/27/19 07:52 O2 Sat by Pulse Oximetry (%) 94 L 01/27/19 07:52 Eyes: Yes: PERRL HENT: Yes: Atraumatic Neck: Yes: Supple Cardiovascular: Yes: Pulse Irregular, S1, S2 Respiratory: Yes: Diminished, Other (left chest tube) Gastrointestinal: Yes: Normal Bowel Sounds, Soft. No: Tenderness Edema: No Additional Findings/Remarks: - Review of Systems Constitutional: denies: Chills, Fever Cardiovascular: reports: Chest Pain. denies: Palpitations, (+) Shortness of Breath Respiratory: reports: Cough. denies: Hemoptysis, Orthopnea, PND, (+) SOB, SOB on Exertion Gastrointestinal: denies: Abdominal Pain, Constipation, Diarrhea, Melena, Nausea , Rectal Bleeding, Vomiting Neurological: denies: Dizziness, Headache, Seizure, Syncope Labs: CBC, BMP 01/24/19 05:30 01/27/19 05:30 INR, PTT INR 3.72 (0.83-1.09) H 01/27/19 05:30 Problem List - Problems (1) Euzum-ec-eaolkgy kidney injury Code(s): N17.9 - ACUTE KIDNEY FAILURE, UNSPECIFIED; N18.9 - CHRONIC KIDNEY DISEASE, UNSPECIFIED Qualifiers: Acute renal failure type: unspecified Chronic kidney disease stage: unspecified stage Qualified Code(s): N17.9 - Acute kidney failure, unspecified ; N18.9 - Chronic kidney disease, unspecified (2) Acute on chronic diastolic (congestive) heart failure Code(s): I50.33 - ACUTE ON CHRONIC DIASTOLIC (CONGESTIVE) HEART FAILURE (3) CAD (coronary artery disease) Code(s): I25.10 - ATHSCL HEART DISEASE OF [place] CORONARY ARTERY W/O ANG PCTRS Qualifiers: Coronary Disease-Associated Artery/Lesion type: [place] artery [place] vs. transplanted heart: [place] heart Associated angina: without angina Qualified Code(s): I25.10 - Atherosclerotic heart disease of [place] coronary artery without angina pectoris (4) COPD (chronic obstructive pulmonary disease) Code(s): J44.9 - CHRONIC OBSTRUCTIVE PULMONARY DISEASE, UNSPECIFIED Qualifiers: COPD type: unspecified COPD Qualified Code(s): J44.9 - Chronic obstructive pulmonary disease, unspecified (5) Chronic anemia Code(s): D64.9 - ANEMIA, UNSPECIFIED (6) HTN (hypertension) Code(s): I10 - ESSENTIAL (PRIMARY) HYPERTENSION Qualifiers: Hypertension type: essential hypertension Qualified Code(s): I10 - Essential (primary) hypertension (7) Hx of CABG Code(s): Z95.1 - PRESENCE OF AORTOCORONARY BYPASS GRAFT (8) Mitral regurgitation Code(s): I34.0 - NONRHEUMATIC MITRAL (VALVE) INSUFFICIENCY Qualifiers: Cardiac valve disease etiology: nonrheumatic Qualified Code(s): I34.0 - Nonrheumatic mitral (valve) insufficiency Assessment/Plan 1. Acute Hypoxic Respiratory Failure 2. Acute on chronic diastolic heart failure with pleural effusion post left chest tube drainage 3. CAD post CABG/PCI (stent) evidence of demand ischemia angina pectoris 4. Persistent atrial fibrillation [id number] score of 5 on Coumadin therapy with therapeutic INR 5. Hypertension 6. Hypercholesterolemia 7. MR mild to moderate in severity 8. TR moderate in severity 9. Carotid stenosis, moderate in severity 10. COPD 11. Acute on chronic kidney disease, currently on HD via PC 12. Anemia and thrombocytopenia PLAN: 1. Current medical therapy 2. Ideally should be on ACEI or ARBS as hemodynamics tolerate, pending renal function stabilization 3. Continue Crestor 5 mg QHS 4. Left chest tube/pigtail management 5. HD via PC per renal service. Monitor renal function and electrolytes 6. Dose Coumadin per INR 7. Eventual SNF placement Bakari Solitario MD
[2019-01-27] MEDS ORDERED: POTASSIUM CHLORIDE ORAL LIQUID 20 MEQ/15 ML PO ONE ×2 (10:52→20:00)
--- NOTE | 2019-01-27 12:25 | PN ---
Progress Note (short form) - Note Progress Note: PULMONARY Breathing continues to improve. Decreased drainage from chest tube. Vital Signs Period Temp Pulse Resp BP Sys/Ascencio Pulse Ox Last 24 Hr 98 F-98.6 F 48-63 21-26 90-101/36-45 94-94 Gen: NAD at rest Heart: RRR Lung: decreased breath sounds at the bases Abd: soft, nontender Ext: no edema CBC, BMP 01/24/19 05:30 01/27/19 05:30 Active Medications Artificial Tears (Artificial Tears) 1 drop OU Q8H PRN PRN Reason: DRY EYES Rosuvastatin Calcium (Crestor -) 5 mg PO HS [facility] Last Admin: 01/26/19 21:44 Dose: 5 mg Sevelamer Carbonate (Renvela -) 800 mg PO TIDCM [facility] Last Admin: 01/27/19 11:23 Dose: 800 mg A/P Acute Hypoxic Respiratory Failure improving Acute on Chronic Diastolic Heart Failure Volume Overload Atrial Fibrillation Acute on Chronic Renal Failure requiring HD COPD Anemia Hypercholesterolemia Thrombocytopenia - placed chest tube on water seal - CXR in AM, will likely d/c tube in AM - HD per renal - continue anticoagulation - rate controlled - daily weights - replete lytes - O2 to keep SpO2 >90% - rate control
--- NOTE | 2019-01-27 14:29 | PN ---
Progress Note, Physician History of Present Illness: Pt seen and examined at bedside. He is awake and alert. He denies chest pain or palpitations. He is not making much urine. - Current Medication List Current Medications: Active Medications Artificial Tears (Artificial Tears) 1 drop OU Q8H PRN PRN Reason: DRY EYES Rosuvastatin Calcium (Crestor -) 5 mg PO HS [facility] Last Admin: 01/26/19 21:44 Dose: 5 mg Sevelamer Carbonate (Renvela -) 800 mg PO TIDCM [facility] Last Admin: 01/27/19 11:23 Dose: 800 mg - Objective Vital Signs: Vital Signs Temperature 97.9 F 01/27/19 11:00 Pulse Rate 57 L 01/27/19 11:00 Respiratory Rate 23 H 01/27/19 11:00 Blood Pressure 96/53 L 01/27/19 11:00 O2 Sat by Pulse Oximetry (%) 94 L 01/27/19 07:52 Constitutional: Yes: Calm Eyes: Yes: Conjunctiva Clear HENT: Yes: Atraumatic Neck: Yes: Supple Cardiovascular: Yes: S1, S2 Respiratory: Yes: On Nasal O2, Other (left side chest tube) Gastrointestinal: Yes: Soft Genitourinary: Yes: WNL Musculoskeletal: Yes: WNL Edema: Yes Edema: LLE: 1+, RLE: 1+ Integumentary: Yes: Venous Stasis Changes Neurological: Yes: Oriented Psychiatric: Yes: Oriented Labs: CBC, BMP 01/24/19 05:30 01/27/19 05:30 INR, PTT INR 3.72 (0.83-1.09) H 01/27/19 05:30 Problem List - Problems (1) Joetw-ws-oghnluv kidney injury Code(s): N17.9 - ACUTE KIDNEY FAILURE, UNSPECIFIED; N18.9 - CHRONIC KIDNEY DISEASE, UNSPECIFIED Qualifiers: Acute renal failure type: unspecified Chronic kidney disease stage: unspecified stage Qualified Code(s): N17.9 - Acute kidney failure, unspecified ; N18.9 - Chronic kidney disease, unspecified (2) Congestive heart failure Code(s): I50.9 - HEART FAILURE, UNSPECIFIED Qualifiers: Heart failure type: unspecified Heart failure chronicity: acute on chronic Qualified Code(s): I50.9 - Heart failure, unspecified Assessment/Plan Current Medications Generic Name Dose Route Start Last Admin Trade Name Freq PRN Reason Stop Dose Admin Artificial Tears 1 drop 01/17/19 20:23 Artificial Tears OU Q8H PRN DRY EYES Rosuvastatin Calcium 5 mg 01/17/19 22:00 01/26/19 21:44 Crestor - PO 5 mg HS JAYCE Administration Sevelamer Carbonate 800 mg 01/23/19 17:30 01/27/19 11:23 Renvela - PO 800 mg TIDCM JAYCE Administration Impression 1. ANGELA 2. CKD 3. CHF 4. hypotension 5. resp failure requiring bipap 6. a-fib 7. hld 8. bilateral pleural effusions 9. anemia 10. hypokalemia 11. ESRD Plan - HD tomorrow - replace potassium, will give an additional dose later today - repeat labs in am - chest tube care per pulmonary, monitor output - cont sevelamer - 3 k bath with HD - renal diet - avoid nsaids
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
[2019-01-27] MEDS: ROSUVASTATIN CA 5 MG TABLET (FP) PO SCH (22:33)
[2019-01-28 06:51] LABS: INR 3.12 (0.83-1.09); PROTHROMBIN TIME (PATIENT) 37.3 SEC (9.7-13.0)
--- NOTE | 2019-01-28 06:55 | PN ---
Progress Note (short form) - Note Progress Note: Chief Complaint: Events noted, notes reviewed, dyspnea persists but improved, lower extremity edema improved, denies any chest pain History of Present Illness: Seen and examined on telemetry. Events noted, notes reviewed, dyspnea persists but improved, lower extremity edema improved, denies any chest pain HD this AM Echocardiography 12/31/2018 Normal LV size and function/LVEF 60%, mod dilated RV with mild decreased RV function, mild-mod AUTUMN, mild MR, mod TR with RVSP 31 mmHg - Current Medication List Current Medications Artificial Tears (Artificial Tears) 1 drop OU Q8H PRN PRN Reason: DRY EYES Epoetin Denny (Epogen -) 8,000 unit IVPUSH ONCE ONE Stop: 01/28/19 14:30 Sodium Chloride (Normal Saline -) 250 mls @ 3,000 mls/hr IV PRN PRN PRN Reason: Hypotension during Dialysis Stop: 01/28/19 14:29 Rosuvastatin Calcium (Crestor -) 5 mg PO HS [facility] Last Admin: 01/27/19 22:33 Dose: 5 mg Sevelamer Carbonate (Renvela -) 800 mg PO TIDCM [facility] Last Admin: 01/27/19 17:31 Dose: 800 mg Review of Systems Cardiovascular: As noted above Respiratory: denies: Cough or Sputum Production Gastrointestinal: denies: Nausea, Vomiting, Diarrhea, Constipation or Abdominal Discomfort Musculoskeletal: No Symptoms Reported Endocrine: No Symptoms Reported - Objective Vital Signs: Last Vital Signs Temp Pulse Resp BP Pulse Ox 98.0 F 49 L 23 H 107/48 L 96 01/28/19 06:00 01/28/19 06:00 01/28/19 06:00 01/28/19 06:00 01/27/19 21:00 Intake & Output 01/25/19 01/26/19 01/27/19 01/28/19 23:59 23:59 23:59 23:59 Intake Total 1050 360 420 20 Output Total 560 270 50 Balance 490 360 150 -30 Weight 172 lb 4.8 oz 172 lb 4.8 oz 169 lb 6.4 oz Neck: Supple Negative JVD No Bruit Cardiovascular: S1 S2 Irregularly Irregular Grade 2/6 SM Respiratory: Diminished Breath Sounds at the Bases Bilaterally Gastrointestinal: Soft Benign Normal Bowel Sounds Ext: Trace Edema Bilaterally Labs: ABG Results ABG pH 7.34 (7.35-7.45) L 12/31/18 13:02 ABG pCO2 at Pt Temp 44.0 mmHg (35-45) 12/31/18 13:02 ABG pO2 at Pt Temp 115 mmHg (80-105) H 12/31/18 13:02 ABG HCO3 23.2 mmol/L (22-27) 12/31/18 13:02 ABG O2 Sat (Measured) 98.0 % (95-98) 12/31/18 13:02 ABG O2 Content 10.3 % vol (15-22) L 12/31/18 13:02 ABG Base Excess -1.9 meq/l (-2-2) 12/31/18 13:02 CBC, BMP 01/28/19 05:30 INR, PTT INR 3.12 (0.83-1.09) H 01/28/19 05:30 Assessment/Plan ASSESSMENT: 1. Acute on chronic class II-III NYHA classification LV failure related to diastolic LV dysfunction, clinically resolved on HD 2. CAD post CABG/PCI (stent) evidence of demand ischemia angina pectoris 3. Persistent atrial fibrillation [id number] score of 5 on A/C therapy/ Coumadin therapy, supra-therapeutic INR 4. Hypertension, hypotension- resolved 5. Hypercholesterolemia 6. MR mild to moderate in severity 7. TR moderate in severity 8. Carotid stenosis, moderate in severity 9. COPD 10. ESRD on HD 11. Anemia PLAN: 1. Ideally should be on B-Blockers, hemodynamics permitting 2. Ideally should be on ACEI or ARBS, hemodynamics permitting 3. Continue Crestor 4. Continue A/C with Coumadin indefinitely unless contraindicated with caution in view of the above noted anemia (transfuse to maintain Hg equal or > 8.0) 5. HD as per renal service Celeste Rosales M.D.
[2019-01-28 07:04] LABS: ANION GAP 10 MMOL/L (8-16); BLOOD UREA NITROGEN 56 mg/dL (7-18); CALCIUM 8.2 mg/dL (8.5-10.1); CHLORIDE 103 mmol/L (98-107); CO2 24 mmol/L (21-32); CREATININE 4.7 mg/dL (0.55-1.3); GLUCOSE,RANDOM 81 mg/dL (74-106); POTASSIUM 3.7 mmol/L (3.5-5.1); SODIUM 138 mmol/L (136-145)
[2019-01-28] MEDS ORDERED: EPOETIN ALFA 2,000 UNIT/1 ML VIAL IVPUSH ONE (08:00)
[2019-01-28 08:11] LABS: HEMATOCRIT 24.1 % (35.4-49); HEMOGLOBIN 8.3 GM/dL (11.7-16.9); MCH 33.1 pg (25.7-33.7); MCHC 34.5 g/dl (32.0-35.9); PLATELET COUNT 179 K/MM3 (134-434); RBC 2.51 M/mm3 (4.00-5.60); RDW 16.5 % (11.9-15.9); WHITE BLOOD COUNT 4.2 K/mm3 (4.0-10.0)
--- NOTE | 2019-01-28 10:38 | PN ---
Progress Note (short form) - Note Progress Note: Hospitalist to document today. HD in progress. 270 cc chest tube drainage yesterday. When pigtail catheter is removed then plans for SNF and HD will be finalized. At this point family is willing to pay for 3X a week transport back and forth to HD unit from [facility].
[2019-01-28] MEDS: SEVELAMER CARBONATE 800 MG TAB (FP) PO SCH ×3 (10:40→17:47)
--- NOTE | 2019-01-28 11:57 | PN ---
Teaching Attending Note Name of Resident: Galilea Chakraborty ATTENDING PHYSICIAN STATEMENT I saw and evaluated the patient. I reviewed the resident's note and discussed the case with the resident. I agree with the resident's findings and plan as documented with exceptions below. SUBJECTIVE: Patient seen and examined. No complaints. OBJECTIVE: Vital Signs Period Temp Pulse Resp BP Sys/Ascencio Pulse Ox Last 24 Hr 97.6 F-98.2 F 45-62 17-23 90-117/33-50 96-96 Intake & Output 01/25/19 01/26/19 01/27/19 01/28/19 23:59 23:59 23:59 23:59 Intake Total 1050 360 420 20 Output Total 560 270 50 Balance 490 360 150 -30 Weight 172 lb 4.8 oz 172 lb 4.8 oz 169 lb 6.4 oz General: in bed in no acute distress, getting HD Chest: bibasilar rales, More on the right, no wheezing, positive air entry Abdomen: soft, NT Extremities: trace pedal edema Home Medications Medication Instructions Recorded Ranolazine [Ranexa -] 500 mg PO BID 03/22/12 Cholecalciferol (Vitamin D3) 2,000 unit PO DAILY 03/13/18 [Vitamin D -] Vit A/Vit C/Vit E/Zinc/Copper 1 each PO DAILY 03/13/18 [Preservision Areds Tablet] Metoprolol Succinate [Toprol Xl] 25 mg PO DAILY 03/18/18 Losartan Potassium [Cozaar -] 25 mg PO DAILY tablet 10/06/18 Warfarin Sodium 5 mg PO HS 30 Days #30 tablet 10/06/18 Allopurinol [Zyloprim -] 150 mg PO DAILY 12/30/18 Furosemide [Lasix] 40 mg PO DAILY 12/30/18 Rosuvastatin [Crestor -] 3 mg PO HS 12/30/18 Active Medications Artificial Tears (Artificial Tears) 1 drop OU Q8H PRN PRN Reason: DRY EYES Rosuvastatin Calcium (Crestor -) 5 mg PO HS COUNTS INCLUDE 234 BEDS AT THE [facility] Last Admin: 01/27/19 22:33 Dose: 5 mg Sevelamer Carbonate (Renvela -) 800 mg PO TIDCM JAYCE Last Admin: 01/28/19 11:20 Dose: 800 mg Laboratory Results - last 24 hr 01/28/19 01/28/19 01/28/19 05:30 05:30 05:30 WBC 4.2 RBC 2.51 L Hgb 8.3 L Hct 24.1 L MCV 96.0 MCH 33.1 MCHC 34.5 RDW 16.5 H Plt Count 179 D MPV 8.0 PT with INR 37.30 H INR 3.12 H Sodium 138 Potassium 3.7 Chloride 103 Carbon Dioxide 24 Anion Gap 10 BUN 56 H Creatinine 4.7 H Creat Clearance w eGFR 11.80 Random Glucose 81 Calcium 8.2 L CXR images and result from today reviewed ASSESSMENT AND PLAN: 88 yom CAD s/p CABG (JHAVERI to mLAD, SVG to RPDA), s/p PCI/LUIS EDUARDO to LAD, persistent AF on Coumadin, diastolic dysfunction with h/o failure, HTN, hypercholesterolemia and carotid stenosis, 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 -Acute on chronic diastolic+/- systolic heart failure exacerbation (prior on lasix drip, now on HD) -Bilateral pleural effusions s/p left chest tube placement 01/13/2019 -Acute hypoxic repiratory failure -Cardiogenic shock off pressors (Prior on dobutamine then levophed drip) -Hypotension suspect cardiogenic -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, suspect cardiorenal from CHF -Perisistent Atrial fibrillation on coumadin -Anemia, suspect multifactorial from renal disease, blood draws, monitor for occult bleed -Coumadin coagulopathy -CAD s/p CABG (JHAVERI to mLAD, SVG to RPDA), s/p PCI/LUIS EDUARDO to LAD -HTN -HLD -Carotid stenosis Plan: Pulmonary input noted, chest tube on water seal, repeat CXR noted,follow up for Chest tube removal today. No current plans for right chest tube or pleurx Ongoing HD for fluid removal. Respiratory status improved. Off HFOT. Bipap prn. HD per renal. s/p permacath 01/10 Metoprolol held given bradycardia and hypotension. Off heparin drip. INR noted, hold coumadin today. Will resume at lower dose 2.5 mg once INR <3. Crestor. Resume ranexa as able. s/p 1 unit PRBC and IV iron, monitor. DVTPPX coumadin Prognosis overall poor. Ongoing palliative care input to address overall goals of care. Dispo telemetry level of care. Plan discussed with patient and nursing Dispo planning Not a candidate for LTAC as discussed with CM. Plan for SNF in 1- 2 days pending chest tube removal if no concerns. Discussed with patient and nursing.
--- NOTE | 2019-01-28 13:03 | PN ---
Progress Note (short form) - Note Progress Note: PULMONARY Breathing continues to improve. Decreased drainage from chest tube. Vital Signs Period Temp Pulse Resp BP Sys/Ascencio Pulse Ox Last 24 Hr 97.6 F-98.2 F 45-62 17-23 90-117/33-50 96-96 Gen: NAD at rest Heart: RRR Lung: decreased breath sounds at the bases Abd: soft, nontender Ext: no edema CBC, BMP 01/28/19 05:30 01/28/19 05:30 Abnormal Lab Results 01/28/19 01/28/19 01/28/19 05:30 05:30 05:30 RBC 2.51 L Hgb 8.3 L Hct 24.1 L RDW 16.5 H PT with INR 37.30 H INR 3.12 H BUN 56 H Creatinine 4.7 H Calcium 8.2 L Active Medications Artificial Tears (Artificial Tears) 1 drop OU Q8H PRN PRN Reason: DRY EYES Rosuvastatin Calcium (Crestor -) 5 mg PO HS [facility] Last Admin: 01/27/19 22:33 Dose: 5 mg Sevelamer Carbonate (Renvela -) 800 mg PO TIDCM [facility] Last Admin: 01/28/19 11:20 Dose: 800 mg A/P Acute Hypoxic Respiratory Failure improving Acute on Chronic Diastolic Heart Failure Volume Overload Atrial Fibrillation Acute on Chronic Renal Failure requiring HD COPD Anemia Hypercholesterolemia Thrombocytopenia - will remove chest tube - HD per renal - continue anticoagulation - rate controlled - daily weights - replete lytes - O2 to keep SpO2 >90% - rate control
--- NOTE | 2019-01-28 13:57 | PN ---
Progress Note, Physician History of Present Illness: Pt seen and examined at bedside. He is awake and alert. He denies shortness of breath. - Current Medication List Current Medications: Active Medications Artificial Tears (Artificial Tears) 1 drop OU Q8H PRN PRN Reason: DRY EYES Rosuvastatin Calcium (Crestor -) 5 mg PO HS [facility] Last Admin: 01/27/19 22:33 Dose: 5 mg Sevelamer Carbonate (Renvela -) 800 mg PO TIDCM [facility] Last Admin: 01/28/19 11:20 Dose: 800 mg - Objective Vital Signs: Vital Signs Temperature 98.2 F 01/28/19 07:10 Pulse Rate 57 L 01/28/19 10:30 Respiratory Rate 18 01/28/19 10:30 Blood Pressure 99/39 L 01/28/19 10:30 O2 Sat by Pulse Oximetry (%) 96 01/27/19 21:00 Constitutional: Yes: Calm Eyes: Yes: Conjunctiva Clear HENT: Yes: Atraumatic Neck: Yes: Supple Cardiovascular: Yes: S1, S2 Respiratory: Yes: On Nasal O2, Other (chest tube removed) Gastrointestinal: Yes: Soft Genitourinary: Yes: Incontinence Musculoskeletal: Yes: Muscle Weakness Edema: Yes Edema: LLE: 1+, RLE: 1+ Integumentary: Yes: Venous Stasis Changes Neurological: Yes: Oriented Psychiatric: Yes: Oriented Labs: CBC, BMP 01/28/19 05:30 01/28/19 05:30 INR, PTT INR 3.12 (0.83-1.09) H 01/28/19 05:30 Problem List - Problems (1) Geysj-oh-mrqiovq kidney injury Code(s): N17.9 - ACUTE KIDNEY FAILURE, UNSPECIFIED; N18.9 - CHRONIC KIDNEY DISEASE, UNSPECIFIED Qualifiers: Acute renal failure type: unspecified Chronic kidney disease stage: unspecified stage Qualified Code(s): N17.9 - Acute kidney failure, unspecified ; N18.9 - Chronic kidney disease, unspecified (2) Congestive heart failure Code(s): I50.9 - HEART FAILURE, UNSPECIFIED Qualifiers: Heart failure type: unspecified Heart failure chronicity: acute on chronic Qualified Code(s): I50.9 - Heart failure, unspecified Assessment/Plan Current Medications Generic Name Dose Route Start Last Admin Trade Name Freq PRN Reason Stop Dose Admin Artificial Tears 1 drop 01/17/19 20:23 Artificial Tears OU Q8H PRN DRY EYES Rosuvastatin Calcium 5 mg 01/17/19 22:00 01/27/19 22:33 Crestor - PO 5 mg HS JAYCE Administration Sevelamer Carbonate 800 mg 01/23/19 17:30 01/28/19 11:20 Renvela - PO 800 mg TIDCM JAYCE Administration Impression 1. ANGELA 2. CKD 3. CHF 4. hypotension 5. resp failure requiring bipap 6. a-fib 7. hld 8. bilateral pleural effusions 9. anemia 10. hypokalemia 11. ESRD Plan - HD today - pt was not accepted for HD at [facility], will need to find alternate unit - potassium improved - phos improved - chest tube removed - repeat labs in am - 3 k bath with HD - renal diet - avoid nsaids
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
[2019-01-28] MEDS: ROSUVASTATIN CA 5 MG TABLET (FP) PO SCH (21:17)
[2019-01-29 06:09] LABS: INR 2.97 (0.83-1.09); PROTHROMBIN TIME (PATIENT) 35.4 SEC (9.7-13.0)
[2019-01-29 06:28] LABS: ANION GAP 6 MMOL/L (8-16); BLOOD UREA NITROGEN 36 mg/dL (7-18); CALCIUM 8.3 mg/dL (8.5-10.1); CHLORIDE 104 mmol/L (98-107); CO2 29 mmol/L (21-32); CREATININE 3.4 mg/dL (0.55-1.3); GLUCOSE,RANDOM 88 mg/dL (74-106); POTASSIUM 3.2 mmol/L (3.5-5.1); SODIUM 139 mmol/L (136-145)
[2019-01-29 07:38] LABS: HEMATOCRIT 25.1 % (35.4-49); HEMOGLOBIN 8.5 GM/dL (11.7-16.9); MCH 32.5 pg (25.7-33.7); MEAN CELL VOLUME 95.5 fl (80-96); MEAN PLT VOLUME 8.1 fl (7.5-11.1); PLATELET COUNT 152 K/MM3 (134-434); RBC 2.63 M/mm3 (4.00-5.60); RDW 16.4 % (11.9-15.9)
--- NOTE | 2019-01-29 08:30 | PN ---
Teaching Attending Note Name of Resident: Galilea Chakraborty ATTENDING PHYSICIAN STATEMENT I saw and evaluated the patient. I reviewed the resident's note and discussed the case with the resident. I agree with the resident's findings and plan as documented. SUBJECTIVE: OBJECTIVE: Vital Signs Temperature 98.6 F 01/29/19 06:00 Pulse Rate 40 L 01/29/19 06:00 Respiratory Rate 21 H 01/29/19 06:00 Blood Pressure 93/35 L 01/29/19 06:00 O2 Sat by Pulse Oximetry (%) 96 01/28/19 20:24 Elderly man noyt in distress, sick looking HEENT: mm moist, mild anemia, NECK: No JVd No bruit CHEST: Rt sided port for HD s/p Chest tube removal, Left sided decrease AE miniml crepts CVS; s1S2 Ir SM ABD: No distention, non tender Bs + EXT: Trace edema, no calf tenderness [employer]: AOX# non focal CBC, BMP 01/29/19 05:30 CXR: B/L effusion ,Modertae Rt Effusion ASSESSMENT AND PLAN:88 yom CAD s/p CABG (JHAVERI to mLAD, SVG to RPDA), s/p PCI/ LUIS EDUARDO to LAD, persistent AF on Coumadin, diastolic dysfunction with h/o failure, HTN, hypercholesterolemia and carotid stenosis, CKD stage II-III (last cr 1.8 in 10/2018)reportedly taken off lasix/aldactone, planned for PPM on 01/02 at [facility] admitted with progressive dypsnea, on HD now, with ongoing need for O2 inhalation, s/p Right chest tube placement 01/13/19. patient is evaluted by pulmonary and cardiology consulrt planned to Dc a [facility] for further management and inhouse HD. cont current management. Problem List - Problems (1) Acute on chronic diastolic (congestive) heart failure Code(s): I50.33 - ACUTE ON CHRONIC DIASTOLIC (CONGESTIVE) HEART FAILURE (2) Ybvyl-rq-viiltxp kidney injury Assessment/Plan: Now on HD F/U BMP MilD hypokalemia will replelte PO Code(s): N17.9 - ACUTE KIDNEY FAILURE, UNSPECIFIED; N18.9 - CHRONIC KIDNEY DISEASE, UNSPECIFIED Qualifiers: Acute renal failure type: unspecified Chronic kidney disease stage: unspecified stage Qualified Code(s): N17.9 - Acute kidney failure, unspecified ; N18.9 - Chronic kidney disease, unspecified (3) Status post insertion of drug-eluting stent into left anterior descending ( LAD) artery Assessment/Plan: no acute issue Code(s): Z95.5 - PRESENCE OF CORONARY ANGIOPLASTY IMPLANT AND GRAFT (4) HTN (hypertension) Assessment/Plan: Low BP so on hold of BP meds Code(s): I10 - ESSENTIAL (PRIMARY) HYPERTENSION Qualifiers: Hypertension type: essential hypertension Qualified Code(s): I10 - Essential (primary) hypertension (5) Atrial fibrillation Assessment/Plan: rtae controlled decrese dose of coumadin to 2.5 mg and F/U INR Code(s): I48.91 - UNSPECIFIED ATRIAL FIBRILLATION Qualifiers: Atrial fibrillation type: permanent Qualified Code(s): I48.2 - Chronic atrial fibrillation (6) Hx of CABG Assessment/Plan: No actinve issue cont ranexa Code(s): Z95.1 - PRESENCE OF AORTOCORONARY BYPASS GRAFT (7) Pleural effusion Assessment/Plan: b/L due to CHF S/P Rt sided chest tube aspiration now removed. Code(s): J90 - PLEURAL EFFUSION, NOT ELSEWHERE CLASSIFIED
[2019-01-29] MEDS: SEVELAMER CARBONATE 800 MG TAB (FP) PO SCH ×2 (09:43→13:04)
[2019-01-29] MEDS ORDERED: POTASSIUM CHLORIDE ORAL LIQUID 20 MEQ/15 ML PO ONE ×2 (10:00→20:00)
--- NOTE | 2019-01-29 11:34 | PN ---
Progress Note (short form) - Note Progress Note: PULMONARY Chest tube removed yesterday. No shortness of breath or chest pain. Vital Signs Period Temp Pulse Resp BP Sys/Ascencio Pulse Ox Last 24 Hr 97.9 F-98.6 F 40-98 17-26 93-107/35-52 96 Intake & Output 01/26/19 01/27/19 01/28/19 01/29/19 23:59 23:59 23:59 23:59 Intake Total 360 420 320 Output Total 270 50 Balance 360 150 270 Weight 78.154 kg 76.839 kg 75.7 kg Gen: NAD at rest Heart: RRR Lung: decreased breath sounds at the bases Abd: soft, nontender Ext: no edema CBC, BMP 01/29/19 05:30 01/29/19 05:30 Active Medications Artificial Tears (Artificial Tears) 1 drop OU Q8H PRN PRN Reason: DRY EYES Rosuvastatin Calcium (Crestor -) 5 mg PO HS [facility] Last Admin: 01/28/19 21:17 Dose: 5 mg Sevelamer Carbonate (Renvela -) 800 mg PO TIDCM [facility] Last Admin: 01/29/19 09:43 Dose: 800 mg A/P Acute Hypoxic Respiratory Failure improving Acute on Chronic Diastolic Heart Failure Volume Overload Atrial Fibrillation Acute on Chronic Renal Failure requiring HD COPD Anemia Hypercholesterolemia Thrombocytopenia - HD per renal - continue anticoagulation - rate controlled - daily weights - replete lytes - O2 to keep SpO2 >90% - rate control - d/c planning
[2019-01-29] MEDS ORDERED: SODIUM CHLORIDE 250 ML IV PRN (12:36)
--- NOTE | 2019-01-29 12:36 | PN ---
Progress Note, Physician History of Present Illness: Pt seen and examined at bedside. He is awake and alert. He denies shortness of breath. - Current Medication List Current Medications: Active Medications Artificial Tears (Artificial Tears) 1 drop OU Q8H PRN PRN Reason: DRY EYES Rosuvastatin Calcium (Crestor -) 5 mg PO HS [facility] Last Admin: 01/28/19 21:17 Dose: 5 mg Sevelamer Carbonate (Renvela -) 800 mg PO TIDCM [facility] Last Admin: 01/29/19 09:43 Dose: 800 mg - Objective Vital Signs: Vital Signs Temperature 98.6 F 01/29/19 06:00 Pulse Rate 40 L 01/29/19 06:00 Respiratory Rate 21 H 01/29/19 06:00 Blood Pressure 93/35 L 01/29/19 06:00 O2 Sat by Pulse Oximetry (%) 96 01/28/19 20:24 Constitutional: Yes: Calm Eyes: Yes: Conjunctiva Clear HENT: Yes: Atraumatic Cardiovascular: Yes: S1, S2 Respiratory: Yes: On Nasal O2 Gastrointestinal: Yes: Soft Genitourinary: Yes: Incontinence Musculoskeletal: Yes: WNL Edema: Yes Edema: LLE: Trace, RLE: Trace Integumentary: Yes: Venous Stasis Changes Neurological: Yes: Oriented Psychiatric: Yes: Oriented Labs: CBC, BMP 01/29/19 05:30 01/29/19 05:30 INR, PTT INR 2.97 (0.83-1.09) H 01/29/19 05:30 - ....Imaging Chest X-ray: Report Reviewed Problem List - Problems (1) Qzith-or-ebxmpxf kidney injury Code(s): N17.9 - ACUTE KIDNEY FAILURE, UNSPECIFIED; N18.9 - CHRONIC KIDNEY DISEASE, UNSPECIFIED Qualifiers: Acute renal failure type: unspecified Chronic kidney disease stage: unspecified stage Qualified Code(s): N17.9 - Acute kidney failure, unspecified ; N18.9 - Chronic kidney disease, unspecified (2) Congestive heart failure Code(s): I50.9 - HEART FAILURE, UNSPECIFIED Qualifiers: Heart failure type: unspecified Heart failure chronicity: acute on chronic Qualified Code(s): I50.9 - Heart failure, unspecified Assessment/Plan Current Medications Generic Name Dose Route Start Last Admin Trade Name Freq PRN Reason Stop Dose Admin Artificial Tears 1 drop 01/17/19 20:23 Artificial Tears OU Q8H PRN DRY EYES Rosuvastatin Calcium 5 mg 01/17/19 22:00 01/28/19 21:17 Crestor - PO 5 mg HS JAYCE Administration Sevelamer Carbonate 800 mg 01/23/19 17:30 01/29/19 09:43 Renvela - PO 800 mg TIDCM JAYCE Administration Impression 1. ANGELA 2. CKD 3. CHF 4. hypotension 5. resp failure requiring bipap 6. a-fib 7. hld 8. bilateral pleural effusions 9. anemia 10. hypokalemia 11. ESRD Plan - next HD tomorrow - pending placement, send info to [facility] - replace potassium - 3 k bath with HD - renal diet - avoid nsaids
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
--- NOTE | 2019-01-29 16:15 | PN ---
Progress Note, Physician History of Present Illness: Dyspnea improved, O2 requirement weaned off NC, hemodynamics stable, tolerating HD via PC. Left chest tube removed. Toprol held for bradycardia and hypotension. - Current Medication List Current Medications: Active Medications Artificial Tears (Artificial Tears) 1 drop OU Q8H PRN PRN Reason: DRY EYES Epoetin Denny (Epogen -) 10,000 unit IVPUSH ONCE ONE Stop: 01/30/19 12:37 Sodium Chloride (Normal Saline -) 250 mls @ 3,000 mls/hr IV PRN PRN PRN Reason: Hypotension during Dialysis Stop: 01/30/19 12:36 Potassium Chloride (Potassium Chloride Oral Liquid) 40 meq PO ONCE ONE Stop: 01/29/19 20:01 Rosuvastatin Calcium (Crestor -) 5 mg PO HS [facility] Last Admin: 01/28/19 21:17 Dose: 5 mg Sevelamer Carbonate (Renvela -) 800 mg PO TIDCM [facility] Last Admin: 01/29/19 13:04 Dose: 800 mg - Objective Vital Signs: Vital Signs Temperature 98.6 F 01/29/19 06:00 Pulse Rate 40 L 01/29/19 06:00 Respiratory Rate 21 H 01/29/19 06:00 Blood Pressure 93/35 L 01/29/19 06:00 O2 Sat by Pulse Oximetry (%) 96 01/28/19 20:24 Constitutional: Yes: No Distress, Calm, Thin Neck: Yes: Supple Cardiovascular: Yes: Regular Rate and Rhythm Respiratory: Yes: Regular, Diminished Gastrointestinal: Yes: Normal Bowel Sounds, Soft Edema: No Labs: CBC, BMP 01/29/19 05:30 01/29/19 05:30 INR, PTT INR 2.97 (0.83-1.09) H 01/29/19 05:30 - ....Imaging Chest X-ray: Report Reviewed (Bilateral effusions with compressive ATX) Problem List - Problems (1) Brwsw-ys-rdhrzvq kidney injury Code(s): N17.9 - ACUTE KIDNEY FAILURE, UNSPECIFIED; N18.9 - CHRONIC KIDNEY DISEASE, UNSPECIFIED Qualifiers: Acute renal failure type: unspecified Chronic kidney disease stage: unspecified stage Qualified Code(s): N17.9 - Acute kidney failure, unspecified ; N18.9 - Chronic kidney disease, unspecified (2) Acute on chronic diastolic (congestive) heart failure Code(s): I50.33 - ACUTE ON CHRONIC DIASTOLIC (CONGESTIVE) HEART FAILURE (3) CAD (coronary artery disease) Code(s): I25.10 - ATHSCL HEART DISEASE OF [place] CORONARY ARTERY W/O ANG PCTRS Qualifiers: Coronary Disease-Associated Artery/Lesion type: [place] artery [place] vs. transplanted heart: [place] heart Associated angina: without angina Qualified Code(s): I25.10 - Atherosclerotic heart disease of [place] coronary artery without angina pectoris (4) COPD (chronic obstructive pulmonary disease) Code(s): J44.9 - CHRONIC OBSTRUCTIVE PULMONARY DISEASE, UNSPECIFIED Qualifiers: COPD type: unspecified COPD Qualified Code(s): J44.9 - Chronic obstructive pulmonary disease, unspecified (5) Chronic anemia Code(s): D64.9 - ANEMIA, UNSPECIFIED (6) Chronic anticoagulation Code(s): Z79.01 - MCC (CURRENT) USE OF ANTICOAGULANTS (7) HTN (hypertension) Code(s): I10 - ESSENTIAL (PRIMARY) HYPERTENSION Qualifiers: Hypertension type: essential hypertension Qualified Code(s): I10 - Essential (primary) hypertension (8) Hx of CABG Code(s): Z95.1 - PRESENCE OF AORTOCORONARY BYPASS GRAFT (9) SOB (shortness of breath) Code(s): R06.02 - SHORTNESS OF BREATH (10) Status post insertion of drug-eluting stent into left anterior descending ( LAD) artery Code(s): Z95.5 - PRESENCE OF CORONARY ANGIOPLASTY IMPLANT AND GRAFT (11) Anemia Code(s): D64.9 - ANEMIA, UNSPECIFIED Qualifiers: Anemia type: unspecified type Qualified Code(s): D64.9 - Anemia, unspecified (12) Atrial fibrillation Code(s): I48.91 - UNSPECIFIED ATRIAL FIBRILLATION Qualifiers: Atrial fibrillation type: permanent Qualified Code(s): I48.2 - Chronic atrial fibrillation (13) Hyperlipidemia Code(s): E78.5 - HYPERLIPIDEMIA, UNSPECIFIED Qualifiers: Hyperlipidemia type: pure hypercholesterolemia Qualified Code(s): E78.00 - Pure hypercholesterolemia, unspecified; E78.0 - Pure hypercholesterolemia (14) Subendocardial ischemia Code(s): I24.8 - OTHER FORMS OF ACUTE ISCHEMIC HEART DISEASE Assessment/Plan 12/31/2018 Echo: Normal LV size and fxn LVEF 60%, mod dilated RV with mild decreased RV fxn, mild-mod AUTUMN, mild MR, mod TR RVSP 31 mmHg 1. Acute Hypoxic Respiratory Failure improving 2. Acute on chronic diastolic heart failure with pleural effusion post left chest tube drainage since d/mary kate 3. CAD post CABG/PCI (stent) evidence of demand ischemia angina pectoris 4. Persistent atrial fibrillation [id number] score of 5 on Coumadin therapy with therapeutic INR 5. Hypertension 6. Hypercholesterolemia 7. MR mild to moderate in severity 8. TR moderate in severity 9. Carotid stenosis, moderate in severity 10. COPD 11. Acute on chronic kidney disease, currently on HD via PC 12. Anemia and thrombocytopenia PLAN: 1. Currently not on beta mukesh due to low BP 2. Ideally should be on ACEI or ARBS as hemodynamics tolerate, pending renal function stabilization 3. Continue Crestor 5 mg QHS, O2 to keep SpO2 >90% 4. Left chest tube/pigtail d/mary kate by ICU team 5. HD via PC per renal service, replete K 6. Dose coumadin per INR 7. D/c planning to SNF with HD
[2019-01-29 17:19] VITALS: BP 110/45; PULSE 55; TEMP 98.3
[2019-01-30] MEDS ORDERED: EPOETIN ALFA 2,000 UNIT/1 ML VIAL IVPUSH ONE (12:36)
== END 2019-01-29 17:00 | DRG 291 ==
LOC: JER 12:52 → JERBED 17:47 → JICU 12-31 10:08 → J2W 01-20 16:30
PROVIDERS: ADMIT Internal Medicine; ATTEND Internal Medicine
PROC: 05HM33Z Insertion of Infusion Device into Right Internal Jugular Vein, Percutaneous Approach (ICD-10-PCS; 2019-01-04)
PROC: 05HM33Z Insertion of Infusion Device into Right Internal Jugular Vein, Percutaneous Approach (ICD-10-PCS; 2019-01-10)
PROC: 02H633Z Insertion of Infusion Device into Right Atrium, Percutaneous Approach (ICD-10-PCS; 2019-01-10)
PROC: 05HY33Z Insertion of Infusion Device into Upper Vein, Percutaneous Approach (ICD-10-PCS; 2019-01-10)
PROC: 02PY33Z Removal of Infusion Device from Great Vessel, Percutaneous Approach (ICD-10-PCS; 2019-01-10)
PROC: 3E043GC Introduction of Other Therapeutic Substance into Central Vein, Percutaneous Approach (ICD-10-PCS; 2019-01-10)
PROC: B543ZZA Ultrasonography of Right Jugular Veins, Guidance (ICD-10-PCS; 2019-01-10)
PROC: 0JH63XZ Insertion of Tunneled Vascular Access Device into Chest Subcutaneous Tissue and Fascia, Percutaneous Approach (ICD-10-PCS; principal; 2019-01-10 17:30)
PROC: 0W9B30Z Drainage of Left Pleural Cavity with Drainage Device, Percutaneous Approach (ICD-10-PCS; 2019-01-13)
PROC: 5A1D70Z Performance of Urinary Filtration, Intermittent, Less than 6 Hours Per Day (ICD-10-PCS; 2019-01-28)
DX: I13.0 Hypertensive heart and chronic kidney disease with heart failure and stage 1 through stage 4 chronic kidney disease, or unspecified chronic kidney disease (principal); N17.0 Acute kidney failure with tubular necrosis; I50.33 Acute on chronic diastolic (congestive) heart failure; R57.0 Cardiogenic shock; N18.6 End stage renal disease; J96.21 Acute and chronic respiratory failure with hypoxia; N39.0 Urinary tract infection, site not specified; J90 Pleural effusion, not elsewhere classified; I24.8 Other forms of acute ischemic heart disease; D68.32 Hemorrhagic disorder due to extrinsic circulating anticoagulants; I48.2 Chronic atrial fibrillation; J44.9 Chronic obstructive pulmonary disease, unspecified; D64.9 Anemia, unspecified; I25.10 Atherosclerotic heart disease of native coronary artery without angina pectoris; E87.6 Hypokalemia; D69.6 Thrombocytopenia, unspecified; Z99.2 Dependence on renal dialysis; E78.5 Hyperlipidemia, unspecified; I34.0 Nonrheumatic mitral (valve) insufficiency; I36.1 Nonrheumatic tricuspid (valve) insufficiency; I25.119 Atherosclerotic heart disease of native coronary artery with unspecified angina pectoris; Z98.61 Coronary angioplasty status; Z95.1 Presence of aortocoronary bypass graft; E87.70 Fluid overload, unspecified; I95.9 Hypotension, unspecified
CPT/HCPCS: 36415; 36430; 36600; 71045-TC-FY; 74019-TC-FY; 76705-TC; 76775-TC; 76856-TC; 80048; 80053; 81003; 81015; 82272; 82465; 82550; 82553; 82607; 82728; 82746; 82803; 82945; 83516; 83520; 83540; 83550; 83615; 83735; 83880; 83986; 84100; 84155; 84157; 84165; 84484; 85025; 85027; 85610; 85730; 86022; 86038; 86225; 86256; 86704; 86706; 86708; 86803; 86850; 86900; 86901; 86922; 87070; 87075; 87086; 87102; 87116; 87186; 87205; 87206; 87210; 87340; 87522; 88108; 88305-TC; 93005; 93010; 93306-TC; 94010; 94640; 94660; 97010-GP; 97110-GP; 97116-GP; 97140-GP; 97162-GP; 99285-25; J0885; J1250; J1644; J1756; P9038; P9047; P9058

== ENCOUNTER 2019-02-01 18:02 | Inpatient (IN) | payer OTHER, MEDICARE ==
--- NOTE | 2019-02-01 18:20 | PDOC ---
History of Present Illness - General Chief Complaint: Blood Pressure Problem Stated Complaint: Blood Pressure Problem Time Seen by Provider: 02/01/19 18:15 - History of Present Illness Initial Comments: 02/01/19 18:21 Mr. Aleman is an 88 yo male w/ pmh of HTN, HLD, afib on coumadin, carotid stenosis, CAD s/p CABG (LMA to mLAD, SVG to RPDA), s/p PCI/LUIS EDUARDO to LAD, w/ recent admission 12/30-01/29 for acute on chronic diastolic CHF where he was placed on HD (w/ shiley, R sided) for CKD who presents for evaluation of hypotension and shortness of breath at dialysis earlier today. Patient reports he always feels this shortness of breath feeling while lying down. Patient received approximately 15 - 20 minutes of dialysis only before hypotension caused them to stop further dialysis and transfer to ED. Patient's last dialysis session was 2 days ago and without complication. The patient denies chest pain, headache and dizziness. Denies fever, chills, nausea, vomit, diarrhea and constipation. Denies dysuria, frequency, urgency and hematuria. Past History - Past Medical History Allergies/Adverse Reactions: Allergies Allergy/AdvReac Type Severity Reaction Status Date / Time No Known Allergies Allergy Verified 02/01/19 18:08 Home Medications: Ambulatory Orders Ranolazine [Ranexa -] 500 mg PO BID 03/22/12 Cholecalciferol (Vitamin D3) [Vitamin D -] 2,000 unit PO DAILY 03/13/18 Vit A/Vit C/Vit E/Zinc/Copper [Preservision Areds Tablet] 1 each PO DAILY Allopurinol [Zyloprim -] 150 mg PO DAILY 12/30/18 Rosuvastatin [Crestor -] 3 mg PO HS 12/30/18 Polyvinyl Alcohol [Artificial Tears] 1 drop OU Q8H PRN drops 01/29/19 Sevelamer Carbonate [Renvela -] 800 mg PO TIDCM tab 01/29/19 Warfarin Sodium 2.5 mg PO HS 30 Days #30 tablet 01/29/19 Anemia: No Asthma: No Cancer: No Cardiac Disorders: Yes (chf, double bypass 2003,) CVA: No COPD: No CHF: Yes (Stage unknown) Dementia: No Diabetes: No GI Disorders: Yes (C-DIFF, HX OF PERFORATED COLON AFTER HIP SURGERY) Disorders: (NEPHROLITHIASIS) HTN: Yes Hypercholesterolemia: Yes Liver Disease: No Seizures: No Thyroid Disease: No - Surgical History Abdominal Surgery: Yes (12/2011 hemicolectomy for perforated cecum) Appendectomy: Yes Cardiac Surgery: Yes (2 VESSEL CABG,CARDIAC STENT) Cholecystectomy: No Lung Surgery: No Neurologic Surgery: No Orthopedic Surgery: Yes (orif rt forearm; lt hip replacement 10 yrs ago; rt hip 2011) - Immunization History Immunization Up to Date: Yes - Suicide/Smoking/Psychosocial Hx Smoking History: Former smoker Have you smoked in the past 12 months: No Number of Cigarettes Smoked Daily: 0 If you are a former smoker, when did you quit?: 25YR Cigars Per Day: 0 'Breaking Loose' booklet given: 10/04/18 Hx Alcohol Use: No Drug/Substance Use Hx: No Substance Use Type: None Hx Substance Use Treatment: No Review of Systems - Review of Systems Comments:: 02/01/19 18:32 GENERAL/CONSTITUTIONAL: No fever or chills. No weakness. HEAD, EYES, EARS, NOSE AND THROAT: No change in vision. No ear pain or discharge. No sore throat. CARDIOVASCULAR: +SOB as described. No chest pain RESPIRATORY: No cough, wheezing, or hemoptysis. GASTROINTESTINAL: No nausea, vomiting, diarrhea or constipation. GENITOURINARY: No dysuria, frequency, or change in urination. MUSCULOSKELETAL: No joint or muscle swelling or pain. No neck or back pain. SKIN: No rash NEUROLOGIC: No headache, vertigo, loss of consciousness, or change in strength/ sensation. ENDOCRINE: No increased thirst. No abnormal weight change HEMATOLOGIC/LYMPHATIC: No anemia, easy bleeding, or history of blood clots. ALLERGIC/IMMUNOLOGIC: No hives or skin allergy. *Physical Exam - Physical Exam Comments: 02/01/19 18:32 GENERAL: Awake, alert, and fully oriented, in no acute distress HEAD: No signs of trauma, normocephalic, atraumatic EYES: PERRLA, EOMI, sclera anicteric, conjunctiva clear ENT: Auricles normal inspection, hearing grossly normal, nares patent, oropharynx clear without exudates. Moist mucosa NECK: Normal ROM, supple, no lymphadenopathy, JVD, or masses LUNGS: +Coarse breath sounds noted bilaterally in lung bases. No distress, speaks full sentences HEART: Regular rate and rhythm, normal S1 and S2, no murmurs, rubs or gallops, peripheral pulses normal and equal bilaterally. ABDOMEN: Soft, nontender, normoactive bowel sounds. No guarding, no rebound. No masses EXTREMITIES: +Hematomas noted to upper extremities MIRIAM c/w prior blood draws. Otherwise normal inspection, normal range of motion, no edema. No clubbing or cyanosis. NEUROLOGICAL: Cranial nerves II through XII grossly intact. Normal speech, normal gait, no focal sensorimotor deficits SKIN: Warm, Dry, normal turgor, no rashes or lesions noted. ED Treatment Course - LABORATORY CBC & Chemistry Diagram: 02/01/19 19:00 02/01/19 20:09 Medical Decision Making - Medical Decision Making 02/01/19 20:26 Mr. Aleman is an 88 yo male w/ pmh as described who presents for evaluation of hypotension and SOB. Patient noted to have positive lung exam and BP to 90's systolic upon presentation to ER. Patient also noted to be bradycardic to 40's. Presentation concerning for sick sinus syndrome vs. hypervolemia vs. pneumonia vs. ACS. Patient workup started with labs as below for sepsis r/o as well as EKG and CXR. EKG concerning for bradycardia as well as low voltage QRS making read difficulty. CXR significant for MIRIAM pleural effusions R>L. Patient will be admitted for further cardiac workup and dialysis as soon as laboratory evaluation is complete. 02/01/19 21:01 Patient UA / Ucx canceled as patient no longer makes urine. Patient noted to have grossly elevated BNP as below c/w fluid overload. Patient noted to have kidney failure as below and potassium to 5.2. 02/01/19 21:26 Patient will be admitted for further evaluation. ICU consulted who believes patient is stable for telemetry and does not need ICU at this time as he is not symptomatic and pulse / Blood pressure were at similar levels during previous admission. Patient will be admitted for further telemetry evaluation. Cardiology also made aware of presentation. No intervention required at this time. Laboratory Results - last 24 hr 02/01/19 02/01/19 02/01/19 19:00 19:00 19:00 WBC 5.8 RBC 2.72 L Hgb 8.8 L Hct 26.4 L MCV 97.4 H MCH 32.5 MCHC 33.4 RDW 17.3 H Plt Count 105 L D MPV 8.8 Absolute Neuts (auto) 4.4 Neutrophils % 75.2 Lymphocytes % 10.2 D Monocytes % 10.0 Eosinophils % 3.8 Basophils % 0.8 Nucleated RBC % 0 PT with INR 44.00 H INR 3.68 H PTT (Actin FS) 48.2 H Sodium Cancelled Potassium Cancelled Chloride Cancelled Carbon Dioxide Cancelled Anion Gap Cancelled BUN Cancelled Creatinine Cancelled Creat Clearance w eGFR Cancelled Random Glucose Cancelled Lactic Acid Calcium Cancelled Total Bilirubin Cancelled AST Cancelled ALT Cancelled Alkaline Phosphatase Cancelled Creatine Kinase Cancelled Troponin I Cancelled B-Natriuretic Peptide Cancelled Total Protein Cancelled Albumin Cancelled 02/01/19 02/01/19 20:09 20:09 WBC RBC Hgb Hct MCV MCH MCHC RDW Plt Count MPV Absolute Neuts (auto) Neutrophils % Lymphocytes % Monocytes % Eosinophils % Basophils % Nucleated RBC % PT with INR INR PTT (Actin FS) Sodium 139 Potassium 3.2 L Chloride 102 Carbon Dioxide 27 Anion Gap 9 BUN 48 H Creatinine 4.5 H Creat Clearance w eGFR 12.40 Random Glucose 96 Lactic Acid 1.0 Calcium 7.8 L Total Bilirubin 0.3 AST 27 ALT 17 Alkaline Phosphatase 97 Creatine Kinase 108 Troponin I 0.06 H B-Natriuretic Peptide 93193.5 H Total Protein 5.8 L Albumin 2.8 L *DC/Admit/Observation/Transfer Diagnosis at time of Disposition: Bradycardia, Shortness of breath, Pleural effusion Hypervolemia Qualifiers: Hypervolemia type: unspecified Qualified Code(s): E87.70 - Fluid overload, unspecified Hypotension Qualifiers: Hypotension type: unspecified hypotension type Qualified Code(s): I95.9 - Hypotension, unspecified - Discharge Dispostion Decision to Admit order: Yes - Referrals - Patient Instructions - Post Discharge Activity
--- NOTE | 2019-02-01 18:44 | PDOC ---
Documentation entered by Kai Gomes SCRIBE, acting as scribe for Adriano Chne MD. Adriano Chen MD: This documentation has been prepared by the Eliseo montemayor Daniel, SCRIBE, under my direction and personally reviewed by me in its entirety. I confirm that the documentation accurately reflects all work, treatment, procedures, and medical decision making performed by me. Attending Attestation - Resident Resident Name: Jack Pate - ED Attending Attestation I have performed the following: I have examined & evaluated the patient, The case was reviewed & discussed with the resident, I agree w/resident's findings & plan, Exceptions are as noted - HPI HPI: 02/01/19 18:57 The patient is an 88 year old female with a past medical history of HTN, HLD, afib (on coumadin), carotid stenosis, and CAD s/p CABG s/p PCI here today for evaluation of hypotension. The patient was recently admitted on 01/29 for acute on chronic diastolic CHF and was discharged to a rehab facility. Patient started every other day dialysis and was 15-20 minutes into his second treatment when the staff noted he had difficulty breathing and hypotension. The patient reports that he has had orthopnea since December. Patient denies headache, lightheadedness. Denies fever, chills. Denies chest pain, shortness of breath. Denies nausea, vomiting, diarrhea, abdominal pain. Allergies: NKA PCP: Ryan Matos - Physicial Exam PE: 02/01/19 19:37 GENERAL: +chronic ill appearing. Awake, alert, and fully oriented, in no acute distress HEAD: No signs of trauma EYES: PERRLA, EOMI, sclera anicteric, conjunctiva clear ENT: Auricles normal inspection, hearing grossly normal, nares patent. Moist mucosa NECK: Normal ROM, supple, JVD, or masses LUNGS: +crackles at bases bilaterally. Breath sounds equal. No wheezes HEART: Regular rate and rhythm, normal S1 and S2, no murmurs, rubs or gallops CHEST: +catheter right chest that is clean, dry, and intact. ABDOMEN: Soft, nontender. No guarding, no rebound. No masses EXTREMITIES: +trace pitting edema of lower extremities. Normal range of motion. No clubbing or cyanosis. No cords, erythema, or tenderness NEUROLOGICAL: Cranial nerves II through XII grossly intact. Normal speech SKIN: Warm, Dry, normal turgor, no rashes or lesions noted. - Medical Decision Making 02/01/19 19:34 A portion of this note was documented by scribe services under my direction. I have reviewed the details of the note, within reason, and agree with the documentation with the following case summary and management plan written by me. Patient treated in the ED. Nursing notes are reviewed and incorporated into the medical decision-making. Vital signs reviewed. Peripheral IV access obtained by the nurse, laboratory studies are drawn and sent, reviewed and interpreted by myself. Vital Signs Temp Pulse Resp BP Pulse Ox 97.3 F L 81 18 102/46 L 98 02/01/19 18:51 02/01/19 18:51 02/01/19 18:51 02/01/19 18:51 02/01/19 18:51 88-year-old with past mental history of hypertension, hyperlipidemia, atrial for ablation on Coumadin, carotid stenosis, coronary disease status post CABG, recent admission for chronic diastolic heart failure and dialysis presents for hypotension during dialysis. The patient was recently discharged several days ago which the states the patient has been appearing fatigued but without focal symptoms. No fevers or chills. No vomiting or diarrhea. Did note today during dialysis that his blood pressures were low and the were only able to complete about 20 minutes. The patient's EKG demonstrates sinus bradycardia. There is some mild crackles at the bases the lungs. Differential includes congestive heart failure with low blood pressure, worsening CHF, low volume, infectious, metabolic disarray, sick sinus syndrome, other cardiac or renal etiologies. The patient will need labs, chest x-ray, cultures and admission to the hospital. The sinus bradycardia may potentially be the etiology of the symptoms and the patient should be evaluated for pacemaker placement. Heart Score/ECG Review #1 ECG reviewed & interpreted by me at: 18:35 02/01/19 18:45 NSR 48 with short MI, rightward axis, low voltage QRS, nonspecific T wave flattening, no std/nico, QTC 460 msec
[2019-02-01 19:23] LABS: BASO % 0.8 % (0-2.0); EOS % 3.8 % (0-4.5); HEMATOCRIT 26.4 % (35.4-49); HEMOGLOBIN 8.8 GM/dL (11.7-16.9); LYMPH % 10.2 % (8-40); MCH 32.5 pg (25.7-33.7); MCHC 33.4 g/dl (32.0-35.9); MEAN CELL VOLUME 97.4 fl (80-96); MEAN PLT VOLUME 8.8 fl (7.5-11.1); NEUT % 75.2 % (42.8-82.8); PLATELET COUNT 105 K/MM3 (134-434); RBC 2.72 M/mm3 (4.00-5.60); RDW 17.3 % (11.9-15.9); WHITE BLOOD COUNT 5.8 K/mm3 (4.0-10.0)
[2019-02-01 19:58] LABS: INR 3.68 (0.83-1.09)
[2019-02-01 20:00] LABS: ACTIVATED PTT 48.2 SECONDS (25.2-36.5)
[2019-02-01 20:52] LABS: ALBUMIN 2.8 g/dl (3.4-5.0); ALK PHOS 97 U/L (45-117); ANION GAP 9 MMOL/L (8-16); BILIRUBIN,TOTAL 0.3 mg/dL (0.2-1); BLOOD UREA NITROGEN 48 mg/dL (7-18); CALCIUM 7.8 mg/dL (8.5-10.1); CHLORIDE 102 mmol/L (98-107); CO2 27 mmol/L (21-32); CREATININE 4.5 mg/dL (0.55-1.3); GLUCOSE,RANDOM 96 mg/dL (74-106); N-TERMINAL BNP 14315.5 pg/ml (5-450); POTASSIUM 3.2 mmol/L (3.5-5.1); SGOT/AST 27 U/L (15-37); SGPT/ALT 17 U/L (13-61); SODIUM 139 mmol/L (136-145); TOT PROT 5.8 g/dl (6.4-8.2)
[2019-02-01 21:24] LABS: MAGNESIUM 2.1 mg/dL (1.8-2.4); PHOSPHOROUS 5.4 mg/dL (2.5-4.9)
--- NOTE | 2019-02-01 21:59 | PN ---
Teaching Attending Note Name of Resident: Carmen Esposito ATTENDING PHYSICIAN STATEMENT I saw and evaluated the patient. I reviewed the resident's note and discussed the case with the resident. I agree with the resident's findings and plan as documented. SUBJECTIVE: Seen and examined; please see resident note for further historical information. Briefly, this is an 88 y/o man who recently was discharged 01/29 after a prolonged hospitalization for respiratory failure 2/2 CHF exacerbation; he had a chest tube that was removed for pleural effusion, was started on HD via PC (R- IJ), had medication adjustments (per Dr. Ruth's last note due to bradycardia). He was discharged to acute rehab and comes back today with hypotension and bradycardia (SBP 90s, HR 40s). This presented at HD for which he was only able to complete 20 minutes of his session today due to hypotension/jesus. He denies any symptoms at this juncture including CP, SOB, syncope, etc. He is nontoxic and keenly responsive in the ER. Noted to have slight troponemia and elevated BNP but in the setting of advanced renal failure making these values unreliable. Will be brought to the floor for further treatment and monitoring. 10 sys ROS done and negative aside from HPI PMH, PSH, FH, SH reviewed Home Medications Medication Instructions Recorded Ranolazine [Ranexa -] 500 mg PO BID 03/22/12 Cholecalciferol (Vitamin D3) 2,000 unit PO DAILY 03/13/18 [Vitamin D -] Vit A/Vit C/Vit E/Zinc/Copper 1 each PO DAILY 03/13/18 [Preservision Areds Tablet] Allopurinol [Zyloprim -] 150 mg PO DAILY 12/30/18 Rosuvastatin [Crestor -] 3 mg PO HS 12/30/18 Polyvinyl Alcohol [Artificial 1 drop OU Q8H PRN drops 01/29/19 Tears] Sevelamer Carbonate [Renvela -] 800 mg PO TIDCM tab 01/29/19 Warfarin Sodium 2.5 mg PO HS 30 Days #30 tablet 01/29/19 OBJECTIVE: VS, labs, imaging reviewed NAD, AAO, resting in bed HR normal to low, s1/2 Lungs with very minor bibasilar crackles, w/ sym exp NT ND +BS CN2-12 wnl, no fnd Normal mood, appropriate behavior. EKGs reviewed; no apparent high degree AVB, ?P wave, underlying AF Echo reviewed ASSESSMENT AND PLAN: Patient presents from rehab with hypotension and bradycardia noted during HD 1) Bradycardia/Hypotension -BP now 100s/50s, HR 40s-50s. Monitor on telemetry. ER placed consult for CV; followup on their recs. Patient will be appropriate for telemetry. -Avoid any agents that could precipitate the aforementioned; add midodrine with extra pre-HD dose. Does have appropriate chronotropic response. 2) Chronic Diastolic CHF -Reviewed echo; not having sx. BNP elevated but likely due to the CKD with demand. ER placed him on O2; wean off as needed with PRN fluid removal with HD. Doesn't appear frankly overloaded 3) Persistent Afib on Coumadin (CV 5) -Not on rate control; INR slightly over goal. Will have pharmacy dose AC while inpatient. 4) CAD s/p PCI/CABG -Continue home medications; asx. Troponemia likely 2/2 demand. Continue ranexa. 5) Pleural Effusion s/p chest tube -Noted; no further sx. Monitor 6) ESRD on HD -Consult nephrology; high phos noted. Continue phos binder. Monitor QD weights , renal diet. Strict is and os. 7) COPD hx -No exacerbation; no PFTs in chart. Consider OP followup. 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 9) JANETTE -Noted hx; no neuro sx 10) HTN -No home antihypertensives; per #1. 11) HLD -Continue statin 12) Low albumin -Check prealbumin
--- NOTE | 2019-02-01 22:01 | CONSULT ---
Consult - text type - Consultation Consultation Note: [facility] Brief ICU request consult note: Called by ED Resident to evaluate Mr Aleman, a 88 y/o man with hx of CHF, HTN, CAD, dislipidemia, and recent long hospitalization during which time hemodialysis was initiated. He received multiple runs of HD via a RIJ tunneled HD cath while in house and today was receiving his 2nd outpatient HD session. Approxiamtely 15min into session pt was noted to be hypotensive with systolic bp in low 90s. He was bradycardic to high 40s and 50s. Session was terminated and pt was sent to ED. Mr Aleman denies he had chest pain, shortness of breath at rest, syncope. In ED pt HR was mid 40s to mid 50s, again without acute symptoms. SBP was in mid 90s. EKG without acute changes, in Afib with varying rates c/w previous EKG from last admission. One EKG has possible pwaves but this was not sustained. Pt remained awake and without distress. Pt currently has no acute needs for renal replacement. K is <4. He has few bibasilar crackles on exam but is not SOB and in saturating in high 90s on NC. His pro BNP is elevated by he is in chronic renal failure making this wholly unreliable. Reviewing his progress notes and chart from last admission these data points are not from from baseline. Pt is well appearing and non toxic. Initial Vital Signs BP Pulse Ox 90/50 L 96 02/01/19 18:05 02/01/19 18:05 Vital Signs Temp 97.3 F L 02/01/19 18:51 Pulse 81 02/01/19 18:51 Resp 18 02/01/19 18:51 BP 102/46 L 02/01/19 18:51 Pulse Ox 98 02/01/19 18:51 Intake & Output 01/31/19 02/01/19 02/01/19 23:59 11:59 23:59 Weight 77.564 kg Other: Height 6 ft 2 in Body Mass Index (BMI) 21.9 Weight Measurement Method Est/Stated by Patient Home Medications Medication Instructions Recorded Ranolazine [Ranexa -] 500 mg PO BID 03/22/12 Cholecalciferol (Vitamin D3) 2,000 unit PO DAILY 03/13/18 [Vitamin D -] Vit A/Vit C/Vit E/Zinc/Copper 1 each PO DAILY 03/13/18 [Preservision Areds Tablet] Allopurinol [Zyloprim -] 150 mg PO DAILY 12/30/18 Rosuvastatin [Crestor -] 3 mg PO HS 12/30/18 Polyvinyl Alcohol [Artificial 1 drop OU Q8H PRN drops 01/29/19 Tears] Sevelamer Carbonate [Renvela -] 800 mg PO TIDCM tab 01/29/19 Warfarin Sodium 2.5 mg PO HS 30 Days #30 tablet 01/29/19 CBC, BMP 02/01/19 19:00 02/01/19 20:09 PE: GEN: awake, alert, pleasant eld man HEENT: flat neck veins, EOMI PULM: few basilar crackles, no wheezes, no accessory muscle use, R TDC clean, dry, intact ABD: soft, NT EXT: moderate dependent LE edema, pulses present Neuro: grossly intact, non focal CXR pulm vasc congestion and alveolar filling, small effusions c/w CHF and largely unchanged from cxr prior to discharge. A/ 88 y/o man newly on renal replacement transferred from outpt dialysis for hypotension P/ -admit with tele monitoring -suggest midodrine 5mg q8 standing with additional 5mg just prior to dialysis -cardiology/Vero has been seeing pt, there has been consideration of pacemaker, can be revisited while in house - do not replete K -monitor for acute dialysis needs (volume overload, hyperkalemia), Nephrology consult for timing of next session and to confirm Midodrine dosing. Hugo [facility] [phone]
[2019-02-01] MEDS ORDERED: ARTIFICIAL TEARS (POLYVINYL ALCOHOL) OPTH DROPS OU PRN (22:40)
--- NOTE | 2019-02-01 22:48 | HP ---
CHIEF COMPLAINT:hypotension during HD PCP:Dr. Matos HISTORY OF PRESENT ILLNESS: Patient is an 88 year old male with past medical history of HTN, HLD, Afib on coumadin, carotid stenosis, CAD s/p CABG, s/p PCI, was brought in from dialysis clinic after patient was noted to be hypotensive and bradycardic. Patient was recently discharged (01/29/19) for acute on chronic CHF and ESRD and was sent home with a RIJ tunneled cath for dialysis every TTS. This afternoon, patient was sent after noted to be hypotensive about 20 minutes after starting dialysis. Patient reported shortness of breath at that time but improved immediately after he was adjusted to a more sitted position. He was immediately brought to the ED. Patient denies headache, dizziness, chest pain, SOB, fever, chills, abdominal pain, diarrhea. ER course was notable for: (1)H/H 8.8/26.4, Plt 105 (2)BUN/Cr 48/4.5, BNP 30807.5 (3)Trop 0.06 Recent Travel:denies PAST MEDICAL HISTORY: HTN HLD Afib on coumadin carotid stenosis CAD s/p CABG, s/p PCI PAST SURGICAL HISTORY: Hemicolectomy for perforated cecum Appendicitis 2-vessel CABG PCI ORIF rt forearm Left hip replacement Social History: Smoking: previous smoker, quit 25 years ago Alcohol: denies Drugs: denies Corrina from [facility] for rehab Family History: Allergies No Known Allergies Allergy (Verified 02/01/19 18:08) HOME MEDICATIONS: Home Medications Medication Instructions Recorded Ranolazine [Ranexa -] 500 mg PO BID 03/22/12 Cholecalciferol (Vitamin D3) 2,000 unit PO DAILY 03/13/18 [Vitamin D -] Vit A/Vit C/Vit E/Zinc/Copper 1 each PO DAILY 03/13/18 [Preservision Areds Tablet] Allopurinol [Zyloprim -] 150 mg PO DAILY 12/30/18 Rosuvastatin [Crestor -] 3 mg PO HS 12/30/18 Polyvinyl Alcohol [Artificial 1 drop OU Q8H PRN drops 01/29/19 Tears] Sevelamer Carbonate [Renvela -] 800 mg PO TIDCM tab 01/29/19 Warfarin Sodium 2.5 mg PO HS 30 Days #30 tablet 01/29/19 REVIEW OF SYSTEMS CONSTITUTIONAL: Absent: fever, chills, diaphoresis, generalized weakness, malaise, loss of appetite, weight change HEENT: Absent: rhinorrhea, nasal congestion, throat pain, throat swelling, difficulty swallowing, mouth swelling, ear pain, eye pain, visual changes CARDIOVASCULAR: Absent: chest pain, syncope, palpitations, irregular heart rate, lightheadedness , peripheral edema RESPIRATORY: Absent: cough, shortness of breath, dyspnea with exertion, orthopnea, wheezing, stridor, hemoptysis GASTROINTESTINAL: Absent: abdominal pain, abdominal distension, nausea, vomiting, diarrhea, constipation, melena, hematochezia GENITOURINARY: Absent: dysuria, frequency, urgency, hesitancy, hematuria, flank pain, genital pain MUSCULOSKELETAL: Absent: myalgia, arthralgia, joint swelling, back pain, neck pain SKIN: Absent: rash, itching, pallor HEMATOLOGIC/IMMUNOLOGIC: Absent: easy bleeding, easy bruising, lymphadenopathy, frequent infections ENDOCRINE: Absent: unexplained weight gain, unexplained weight loss, heat intolerance, cold intolerance NEUROLOGIC: Absent: headache, focal weakness or paresthesias, dizziness, unsteady gait, seizure, mental status changes, bladder or bowel incontinence PSYCHIATRIC: Absent: anxiety, depression, suicidal or homicidal ideation, hallucinations. PHYSICAL EXAMINATION Vital Signs - 24 hr 02/01/19 02/01/19 02/01/19 18:05 18:49 18:51 Temperature 97.3 F L Pulse Rate 49 L 81 Pulse Rate [ 49 L Left Apical] Respiratory 14 18 Rate Blood Pressure 90/50 L 102/46 L Blood Pressure 103/55 L [Left Arm] O2 Sat by Pulse 96 100 98 Oximetry (%) 02/01/19 02/01/19 21:49 22:20 Temperature Pulse Rate Pulse Rate [ 55 L Left Apical] Respiratory 19 Rate Blood Pressure Blood Pressure 93/48 L [Left Arm] O2 Sat by Pulse 100 100 Oximetry (%) GENERAL: Awake, alert, and fully oriented, in no acute distress. HEAD: Normal with no signs of trauma. EYES: PERRLA, EOMI, sclera anicteric, conjunctiva clear. EARS, NOSE, THROAT:oropharynx clear without exudates. Moist mucous membranes. NECK: Normal range of motion, supple, no JVD. LUNGS: +Bibasilar crackles HEART: Bradycardia, normal S1 and S2 without murmur, rub or gallop. ABDOMEN: Soft, nontender, not distended, normoactive bowel sounds. UPPER EXTREMITIES: 2+ pulses, warm, well-perfused. +ecchymoses bilaterally LOWER EXTREMITIES: 2+ pulses, warm, well-perfused. No calf tenderness. +1 pitting edema bilaterally NEUROLOGICAL: Cranial nerves II-XII intact. Normal speech. Walks with a walker. PSYCHIATRIC: Cooperative. Good eye contact. Appropriate mood and affect. SKIN: Warm, dry, normal turgor. Laboratory Results - last 24 hr 02/01/19 02/01/19 02/01/19 19:00 19:00 19:00 WBC 5.8 RBC 2.72 L Hgb 8.8 L Hct 26.4 L MCV 97.4 H MCH 32.5 MCHC 33.4 RDW 17.3 H Plt Count 105 L D MPV 8.8 Absolute Neuts (auto) 4.4 Neutrophils % 75.2 Lymphocytes % 10.2 D Monocytes % 10.0 Eosinophils % 3.8 Basophils % 0.8 Nucleated RBC % 0 PT with INR 44.00 H INR 3.68 H PTT (Actin FS) 48.2 H Sodium Cancelled Potassium Cancelled Chloride Cancelled Carbon Dioxide Cancelled Anion Gap Cancelled BUN Cancelled Creatinine Cancelled Creat Clearance w eGFR Cancelled Random Glucose Cancelled Lactic Acid Calcium Cancelled Phosphorus Magnesium Total Bilirubin Cancelled AST Cancelled ALT Cancelled Alkaline Phosphatase Cancelled Creatine Kinase Cancelled Troponin I Cancelled B-Natriuretic Peptide Cancelled Total Protein Cancelled Albumin Cancelled 02/01/19 02/01/19 20:09 20:09 WBC RBC Hgb Hct MCV MCH MCHC RDW Plt Count MPV Absolute Neuts (auto) Neutrophils % Lymphocytes % Monocytes % Eosinophils % Basophils % Nucleated RBC % PT with INR INR PTT (Actin FS) Sodium 139 Potassium 3.2 L Chloride 102 Carbon Dioxide 27 Anion Gap 9 BUN 48 H Creatinine 4.5 H Creat Clearance w eGFR 12.40 Random Glucose 96 Lactic Acid 1.0 Calcium 7.8 L Phosphorus 5.4 H Magnesium 2.1 Total Bilirubin 0.3 AST 27 ALT 17 Alkaline Phosphatase 97 Creatine Kinase 108 Troponin I 0.06 H B-Natriuretic Peptide 81635.5 H Total Protein 5.8 L Albumin 2.8 L ASSESSMENT/PLAN: Patient is an 88 year old male with past medical history of HTN, HLD, Afib on coumadin, carotid stenosis, CAD s/p CABG, s/p PCI, was brought in from dialysis clinic after patient was noted to be hypotensive and bradycardic. #Hypotension and Bradycardia during HD: resolved -patient currently at baseline BP and HR -tele monitoring -Consider Midodrine prior to starting HD -Cardiology (Dr. Rosales) consulted. #ESRD on HD (TTS) -No indications for emergent dialysis. -NEphrology (Dr. Montgomery) consulted. #Supratherapeutic INR -INR 3.68 -Will hold coumadin 2.5mg tonight -Repeat INR in the morning #Elevated Troponin -Trop 0.06, chronic, likely from ESRD -No ischemic ST-T wave changes on EKG -will trend trop #Diastolic CHF -Echo (12/31) : EF 60%. LV normal. RV moderately dilated. RV systolic function mildly reduced. -BNP 94339 (increased from previous admission), but likely from ESRD -I&O, daily weights -tele monitoring -Cardiology (Dr. Rosales) consulted. #Pleural effusion -no significant change since previous CXR -patient not in distress, will monitor for now #CAD -Continue Crestor 5mg #COPD: stable -Continue home meds #Anemia: chronic -baseline Hgb 8-9 -will monitor #Thrombocytopenia: chronic -Plt 105 -will continue to monitor #Hypokalemia -K 3.2 -Will continue to monitor #Hyperphosphatemia -Phos 5.4 -will continue home Sevelamer 800mg TID #FEN -Not on any standing fluids -HyperK, hyperphos -Routine bmp monitoring -Renal diet #Prophylaxis -On coumadin (on hold) -SCDs #Disposition -full code -tele Visit type - Emergency Visit Emergency Visit: Yes ED Registration Date: 02/01/19 Care time: The patient presented to the Emergency Department on the above date and was hospitalized for further evaluation of their emergent condition. - New Patient This patient is new to me today: Yes Date on this admission: 02/03/19 - Critical Care Critical Care patient: No
[2019-02-01 23:33] LABS: MAGNESIUM 1.9 mg/dL (1.8-2.4); PHOSPHOROUS 5.5 mg/dL (2.5-4.9)
[2019-02-02 00:57] VITALS: BMI 23.3
--- NOTE | 2019-02-02 07:25 | PN ---
Progress Note (short form) - Note Progress Note: Chief Complaint: Events noted, notes reviewed, hypotension during HD session, asymptomatic, denies any chest pain or dyspnea History of Present Illness: Seen and examined on telemetry. Full consult dictated Echocardiography 12/31/2018 Normal LV size and function/LVEF 60%, mod dilated RV with mild decreased RV function, mild-mod AUTUMN, mild MR, mod TR with RVSP 31 mmHg - Current Medication List Current Medications Allopurinol (Zyloprim -) 150 mg PO DAILY JAYCE Artificial Tears (Artificial Tears) 1 drop OU Q8H PRN PRN Reason: DRY EYES Cholecalciferol (Vitamin D3 -) 2,000 unit PO DAILY [facility] Multivitamins/Minerals/Vitamin C (Tab-A-Vit -) 1 tab PO DAILY JAYCE Rosuvastatin Calcium (Crestor -) 5 mg PO HS JAYCE Sevelamer Carbonate (Renvela -) 800 mg PO TIDCM JAYCE Review of Systems Cardiovascular: As noted above Respiratory: denies: Cough or Sputum Production Gastrointestinal: denies: Nausea, Vomiting, Diarrhea, Constipation or Abdominal Discomfort Musculoskeletal: No Symptoms Reported Endocrine: No Symptoms Reported - Objective Vital Signs: Last Vital Signs Temp Pulse Resp BP Pulse Ox 97.5 F L 48 L 16 100/46 L 98 02/02/19 06:00 02/02/19 06:00 02/02/19 06:00 02/02/19 06:00 02/01/19 23:35 Intake & Output 01/30/19 01/31/19 02/01/19 02/02/19 23:59 23:59 23:59 23:59 Intake Total 60 130 Balance 60 130 Weight 181 lb 7.047 oz Neck: Supple Negative JVD No Bruit Cardiovascular: S1 S2 Irregularly Irregular Grade 2/6 SM Respiratory: Diminished Breath Sounds at the Bases Bilaterally Gastrointestinal: Soft Benign Normal Bowel Sounds Ext: Trace Edema Bilaterally Labs: CBC, BMP 02/02/19 06:10 02/02/19 06:10 Troponin, BNP 02/01/19 02/01/19 02/02/19 19:00 20:09 01:45 Troponin I Cancelled 0.06 H 0.07 H B-Natriuretic Peptide Cancelled 61536.5 H Hepatic Panel Total Bilirubin 0.3 mg/dL (0.2-1) 02/01/19 20:09 AST 27 U/L (15-37) 02/01/19 20:09 ALT 17 U/L (13-61) 02/01/19 20:09 Alkaline Phosphatase 97 U/L (45-117) 02/01/19 20:09 Albumin 2.8 g/dl (3.4-5.0) L 02/01/19 20:09 INR, PTT INR 3.68 (0.83-1.09) H 02/01/19 19:00 Assessment/Plan ASSESSMENT: 1. Hypotension, asymptomatic precluding HD continuation 2. Diastolic LV dysfunction with chronic class I-II NYHA classification LV failure, clinically compensated/euvolemic 3. CAD post CABG/PCI (stent) evidence of demand ischemia angina pectoris 4. Persistent atrial fibrillation [id number] score of 5 on A/C therapy/ Coumadin therapy, supra-therapeutic INR 5. Hypertension history, hypotensive as noted above 6. Hypercholesterolemia 7. MR mild to moderate in severity 8. TR moderate in severity 9. Carotid stenosis, moderate in severity 10. COPD 11. ESRD on HD 12. Anemia/thrombocytopenia PLAN: 1. Recommend initiation of Midodrine therapy to assist with blood pressure maintainance, initiate at 5 mg twice daily and titrate as needed 2. Ideally should be on B-Blockers, hemodynamics permitting, defer at this point 3. Ideally should be on ACEI or ARBS, hemodynamics permitting, defer at this point 4. Continue Crestor 5. Continue A/C with Coumadin indefinitely unless contraindicated with caution in view of the above noted anemia/thrombocytopenia (transfuse to maintain Hg equal or > 8.0, maintain INR 2-3) 6. HD as per renal service Can be D/C home from the cardiovascular point of view Celeste Rosales M.D.
[2019-02-02 07:33] LABS: BASO % 2.1 % (0-2.0); EOS % 5.9 % (0-4.5); HEMATOCRIT 25.6 % (35.4-49); HEMOGLOBIN 8.5 GM/dL (11.7-16.9); LYMPH % 16.3 % (8-40); MCH 32.3 pg (25.7-33.7); MCHC 33.4 g/dl (32.0-35.9); MEAN CELL VOLUME 96.7 fl (80-96); MEAN PLT VOLUME 8.5 fl (7.5-11.1); MONO % 11.9 % (3.8-10.2); NEUT % 63.8 % (42.8-82.8); PLATELET COUNT 81 K/MM3 (134-434); RBC 2.65 M/mm3 (4.00-5.60); RDW 16.8 % (11.9-15.9)
[2019-02-02 07:50] LABS: PROTHROMBIN TIME (PATIENT) 49.1 SEC (9.7-13.0)
[2019-02-02 08:04] LABS: ALBUMIN 2.9 g/dl (3.4-5.0); ALK PHOS 87 U/L (45-117); ANION GAP 11 MMOL/L (8-16); BILIRUBIN,TOTAL 0.5 mg/dL (0.2-1); BLOOD UREA NITROGEN 50 mg/dL (7-18); CHLORIDE 100 mmol/L (98-107); CO2 27 mmol/L (21-32); CREATININE 4.8 mg/dL (0.55-1.3); GLUCOSE,RANDOM 81 mg/dL (74-106); MAGNESIUM 1.9 mg/dL (1.8-2.4); PHOSPHOROUS 6.2 mg/dL (2.5-4.9); SGOT/AST 26 U/L (15-37); SGPT/ALT 16 U/L (13-61); SODIUM 139 mmol/L (136-145); TOT PROT 5.8 g/dl (6.4-8.2)
[2019-02-02 08:26] LABS: POTASSIUM 2.8 mmol/L (3.5-5.1)
[2019-02-02 08:42] LABS: INR 4.1 (0.83-1.09)
--- NOTE | 2019-02-02 09:07 | CON.NEP ---
Consult Consult Specialty:: Nephrology Reason for Consultation:: esrd - History of Present Illness Chief Complaint: hypotension History of Present Illness: this is an 88 y/o man who recently was discharged 01/29 after a prolonged hospitalization for respiratory failure 2/2 CHF exacerbation; he had a chest tube that was removed for pleural effusion, was started on HD via PC (R-IJ). He was being dialyzed and his blood pressure dropped 20 minutes into his treatment so he was brought into the hospital. Says he feels well now. No chest pain or sob. Did have nausea but no vomiting. - History Source History Provided By: Patient, Medical Record Limitations to Obtaining History: No Limitations - Past Medical History Cardio/Vascular: Yes: AFIB, CAD, CHF, HTN, Hyperlipdemia Renal/: Yes: Renal Inusuff Musculoskeletal: Yes: Other (spinal stenosis) - Past Surgical History Past Surgical History: Yes: CABG, Colectomy, Hernia Repair, Joint Replacement (b /l hip replacement ORIF right arm), Stent - Alcohol/Substance Use Hx Alcohol Use: Yes (occaisional social drink) History of Substance Use: reports: None - Smoking History Smoking history: Former smoker Have you smoked in the past 12 months: No Aproximately how many cigarettes per day: 0 If you are a former smoker, when did you quit?: 35 years ago - Social History ADL: Independent History of Recent Travel: No Home Medications - Allergies Allergies/Adverse Reactions: Allergies Allergy/AdvReac Type Severity Reaction Status Date / Time No Known Allergies Allergy Verified 02/01/19 18:08 - Home Medications Home Medications: Ambulatory Orders Ranolazine [Ranexa -] 500 mg PO BID 03/22/12 Cholecalciferol (Vitamin D3) [Vitamin D -] 2,000 unit PO DAILY 03/13/18 Vit A/Vit C/Vit E/Zinc/Copper [Preservision Areds Tablet] 1 each PO DAILY Allopurinol [Zyloprim -] 150 mg PO DAILY 12/30/18 Rosuvastatin [Crestor -] 3 mg PO HS 12/30/18 Polyvinyl Alcohol [Artificial Tears] 1 drop OU Q8H PRN drops 01/29/19 Sevelamer Carbonate [Renvela -] 800 mg PO TIDCM tab 01/29/19 Warfarin Sodium 2.5 mg PO HS 30 Days #30 tablet 01/29/19 Family Disease History - Family Disease History Family Disease History: Heart Disease: Mother, Brother, Other: Father Review of Systems - Review of Systems Constitutional: reports: No Symptoms Eyes: reports: No Symptoms HENT: reports: No Symptoms Neck: reports: No Symptoms Cardiovascular: reports: No Symptoms Respiratory: reports: No Symptoms Gastrointestinal: reports: Nausea Genitourinary: reports: No Symptoms Breasts: reports: No Symptoms Reported Musculoskeletal: reports: No Symptoms Integumentary: reports: No Symptoms Neurological: reports: No Symptoms Endocrine: reports: No Symptoms Hematology/Lymphatic: reports: No Symptoms Psychiatric: reports: No Symptoms Nephrology Consult - Height Height: 6 ft 2 in - Weight Weight: 181 lb 7.047 oz - BMI Body Mass Index (BMI): 23.3 - Lab Results CBC,BMP: CBC, BMP 02/02/19 06:10 02/02/19 06:10 Anion Gap: Anion Gap Anion Gap 11 MMOL/L (8-16) 02/02/19 06:10 - Imaging Chest X-ray: Report Reviewed - Physical Examination Vital Signs: Vital Signs Temperature 97.5 F L 02/02/19 06:00 Pulse Rate 48 L 02/02/19 06:00 Respiratory Rate 16 02/02/19 06:00 Blood Pressure 100/46 L 02/02/19 06:00 O2 Sat by Pulse Oximetry (%) 98 02/01/19 23:35 Constitutional: Yes: Well Nourished, No Distress, Calm Eyes: Yes: Conjunctiva Clear, EOM Intact HENT: Yes: Atraumatic, Normocephalic Neck: Yes: Supple, Trachea Midline Cardiovascular: Yes: Regular Rate and Rhythm Respiratory: Yes: CTA Bilaterally Gastrointestinal: Yes: Normal Bowel Sounds Renal/: No: Bladder Distention Access for Hemodialysis: Permacath Musculoskeletal: Yes: WNL Extremities: Yes: WNL Edema: No Peripheral Pulses WNL: Yes Integumentary: Yes: WNL Wound/Incision: Yes: Clean/Dry Neurological: Yes: Alert, Oriented Psychiatric: Yes: Alert, Oriented Assessment/Plan IMPRESSION esrd chf hypotension of unclear etiology PLAN cardiology recommending midodrine will dialyze again tomorrow monitor electrolytes and hemoglobin MV
[2019-02-02] MEDS ORDERED: PT OWN MED DRAWER 7, Y5N ONE ×2 (09:24→17:44)
--- NOTE | 2019-02-02 09:37 | CONS ---
DATE OF CONSULTATION: 02/02/2019 CONSULTATION REQUESTED BY: Hospitalist service CHIEF COMPLAINT: Evaluation of asymptomatic hypotension. HISTORY: Patient known to our service from the office and recent hospitalization. An 88-year-old male with known history of coronary artery disease, post coronary artery bypass grafting, posterior percutaneous coronary intervention, stenting, angina pectoris, diastolic left ventricular dysfunction with chronic class I to II [place] Heart [employer] classification left ventricular failure, persistent atrial fibrillation on chronic anticoagulation therapy, CHADS2-VASc score of 5, hypertensive cardiovascular disease, recently hypotensive, hypercholesterolemia, mitral valve regurgitation, tricuspid valve regurgitation, carotid stenosis, chronic obstructive pulmonary disease, end-stage renal disease, recently initiated on hemodialysis who presented to [facility] with hypotension noted during dialysis session, although patient was asymptomatic. Patient currently does not report any dizziness or lightheadedness. Patient denies any chest discomfort. Patient denies any dyspnea, orthopnea, paroxysmal nocturnal dyspnea or peripheral edema. Patient denies any palpitation or syncope. Patient reports fatigue and tiredness. Patient recently was scheduled to proceed with permanent pacemaker implantation for management of atrial fibrillation with slow ventricular response. PAST MEDICAL HISTORY: Coronary artery disease, post coronary artery bypass grafting, post percutaneous coronary intervention, stenting, angina pectoris, diastolic left ventricular dysfunction with chronic class I to II [place] Heart Association classification left ventricular failure, permanent atrial fibrillation on chronic anticoagulation therapy, CHADS-VASc score of 5, hypertensive cardiovascular disease, recently hypotensive on no therapy, hypercholesterolemia, mitral valve regurgitation, tricuspid valve regurgitation, carotid stenosis, chronic obstructive pulmonary disease, end-stage renal disease, recently initiated on hemodialysis, chronic anemia, degenerative lumbosacral disk disease with chronic low back pain syndrome and degenerative joint disease. SOCIAL HISTORY: Prior history of tobacco abuse. FAMILY HISTORY: Positive coronary artery disease. ALLERGIES: None reported. MEDICAL THERAPY CURRENTLY: Includes Coumadin; allopurinol 150 mg once a day; vitamin D 2000 international units once a day; multivitamin 1 tablet once a day; Crestor 5 mg once a day; Renvela 800 mg 3 times a day. REVIEW OF SYSTEMS: Head and Neck: Denies headache, photophobia, blurring of vision. Respiratory: No cough or sputum production. Cardiovascular: As noted above. Gastrointestinal: Denies nausea, vomiting, diarrhea, abdominal discomfort. Genitourinary: On hemodialysis. Musculoskeletal: No symptoms reported. PHYSICAL EXAMINATION: Vital Signs: Blood pressure is 100/46 mmHg. Pulse rate is 48 beats per minute. Head and Neck: Pupils equal, reactive to light and accommodation. Extraocular movements are intact. Anicteric sclerae. Negative JVD. No bruit appreciated. Chest: Diminished breath sounds at the bases bilaterally. Cardiovascular: S1, S2, irregularly irregular, grade 2 to 3 over 6 systolic apical murmur. No clicks or gallops. Abdomen: Soft, benign. Normoactive bowel sounds. Extremities: Trace edema. Distal pulses 1+. No calf tenderness. EKG noted atrial fibrillation. CBC revealed white cell count 4.0, hemoglobin 8.5, platelets 81. Basic metabolic profile reveals sodium 139, potassium of 2.8, BUN of 50, creatinine 4.8, glucose 81. Troponin of 0.06, repeat 0.07. BNP 14,315. ASSESSMENT: 1. Hypotension asymptomatic precluding hemodialysis continuation. 2. Diastolic left ventricular dysfunction with chronic class I to II [place] Heart Association classification left ventricular failure clinically compensated/euvolemic. 3. Coronary artery disease, post coronary artery bypass grafting, post percutaneous coronary intervention with stenting with evidence of demand ischemic injury, angina pectoris. 4. Persistent atrial fibrillation, CHADS-VASc score of 5 on chronic anticoagulation therapy, Coumadin therapy. Currently supratherapeutic INR. INR measured 3.68. 5. Hypertension history. Currently hypotensive as noted above. 6. Hypercholesterolemia. 7. Mitral valve regurgitation mild to moderate in severity. 8. Tricuspid valve regurgitation moderate in severity. 9. Carotid stenosis moderate in severity. 10. History of chronic obstructive pulmonary disease. 11. End-stage renal disease on hemodialysis. 12. Anemia/thrombocytopenia. RECOMMENDATION: 1. Initiation of midodrine therapy to assist with blood pressure maintenance, initiate at 5 mg twice daily and titrate as needed. 2. Ideally patient should be on beta-blockers hemodynamics permitting, defer at this point. 3. Ideally patient should be on CAROLYN inhibitors or angiotensin receptor blockers hemodynamics permitting, defer at this point. 4. Continuation of Crestor. 5. Continuation of anticoagulation therapy with Coumadin indefinitely unless it is absolutely contraindicated with caution in view of the above-noted anemia/thrombocytopenia. Transfuse to maintain hemoglobin equal or greater than 8.0 and maintain INR between 2 and 3. 6. Hemodialysis as per renal service. Patient can be discharged home from the cardiovascular point of view. Thank you for the kind referral. CHAVA MONTE M.D. EDEN/[id number]
[2019-02-02] MEDS: MIDODRINE HCL 5 MG TABLET PO SCH ×2 (10:56→18:56)
[2019-02-02] MEDS: SEVELAMER CARBONATE 800 MG TAB (FP) PO SCH ×3 (12:28→18:18)
[2019-02-02] MEDS: ALLOPURINOL 100 MG TABLET (FP) PO SCH (12:37)
[2019-02-02] MEDS: CHOLECALCIFEROL (VITAMIN D3) 1,000 UNIT TABLET (FP) PO SCH (12:39)
[2019-02-02] MEDS: MULTIVITAMINS (DAILY MVI) TABLET (FP) PO SCH (12:40)
--- NOTE | 2019-02-02 12:57 | EKG ---
Test Reason : Blood Pressure : / mmHG Vent. Rate : 047 BPM Atrial Rate : 042 BPM P-R Int : 000 ms QRS Dur : 120 ms QT Int : 378 ms P-R-T Axes : 000 088 268 degrees QTc Int : 334 ms WIDE QRS RHYTHM NON-SPECIFIC INTRA-VENTRICULAR CONDUCTION DELAY NONSPECIFIC ST AND T WAVE ABNORMALITY ABNORMAL ECG Confirmed by MD FREDDIE, UNIQUE ([id number]) on 02/02/2019 12:57:17 PM Referred By: Confirmed By:UNIQUE FRAZIER MD
--- NOTE | 2019-02-02 12:58 | EKG ---
Test Reason : Blood Pressure : / mmHG Vent. Rate : 048 BPM Atrial Rate : 048 BPM P-R Int : 080 ms QRS Dur : 098 ms QT Int : 516 ms P-R-T Axes : 085 093 020 degrees QTc Int : 460 ms POOR DATA QUALITY, INTERPRETATION MAY BE ADVERSELY AFFECTED SINUS BRADYCARDIA WITH SHORT CA RIGHTWARD AXIS LOW VOLTAGE QRS CANNOT RULE OUT ANTEROSEPTAL INFARCT (CITED ON OR BEFORE 30-DEC-2018) ABNORMAL ECG Confirmed by MD FREDDIE, UNIQUE ([id number]) on 02/02/2019 12:57:40 PM Referred By: Confirmed By:UNIQUE FRAZIER MD
[2019-02-02] MEDS ORDERED: POTASSIUM CHLORIDE TABS 20 MEQ TABLET.ER (FP) PO ONE (15:45)
[2019-02-02 18:38] LABS: ALBUMIN 2.7 g/dl (3.4-5.0); ALK PHOS 93 U/L (45-117); ANION GAP 10 MMOL/L (8-16); BILIRUBIN,TOTAL 0.4 mg/dL (0.2-1); BLOOD UREA NITROGEN 55 mg/dL (7-18); CALCIUM 7.6 mg/dL (8.5-10.1); CHLORIDE 100 mmol/L (98-107); CO2 26 mmol/L (21-32); CREATININE 5.2 mg/dL (0.55-1.3); GLUCOSE,RANDOM 115 mg/dL (74-106); POTASSIUM 3.1 mmol/L (3.5-5.1); SGOT/AST 25 U/L (15-37); SGPT/ALT 17 U/L (13-61); SODIUM 136 mmol/L (136-145); TOT PROT 5.9 g/dl (6.4-8.2)
[2019-02-02] MEDS ORDERED: ROSUVASTATIN CA 5 MG TABLET (FP) PO SCH (22:00)
--- NOTE | 2019-02-03 07:12 | PN ---
Progress Note (short form) - Note Progress Note: Chief Complaint: Events noted, notes reviewed, HD at the bedside tolerating thus far, denies any chest pain or dyspnea History of Present Illness: Seen and examined on telemetry. Events noted, notes reviewed, HD at the bedside tolerating thus far, denies any chest pain or dyspnea Echocardiography 12/31/2018 Normal LV size and function/LVEF 60%, mod dilated RV with mild decreased RV function, mild-mod AUTUMN, mild MR, mod TR with RVSP 31 mmHg - Current Medication List Current Medications Allopurinol (Zyloprim -) 150 mg PO DAILY [facility] Last Admin: 02/02/19 12:37 Dose: 150 mg Artificial Tears (Artificial Tears) 1 drop OU Q8H PRN PRN Reason: DRY EYES Cholecalciferol (Vitamin D3 -) 2,000 unit PO DAILY [facility] Last Admin: 02/02/19 12:39 Dose: 2,000 unit Epoetin Denny (Procrit -) 3,000 unit SQ ONCE ONE Stop: 02/02/19 09:15 Sodium Chloride (Normal Saline -) 250 mls @ 3,000 mls/hr IV PRN PRN PRN Reason: Hypotension during Dialysis Stop: 02/03/19 09:14 Midodrine (Proamatine -) 5 mg PO BID-MID [facility] Last Admin: 02/02/19 18:56 Dose: 5 mg Multivitamins/Minerals/Vitamin C (Tab-A-Vit -) 1 tab PO DAILY [facility] Last Admin: 02/02/19 12:40 Dose: 1 tab Rosuvastatin Calcium (Crestor -) 5 mg PO HS [facility] Last Admin: 02/02/19 21:38 Dose: 5 mg Sevelamer Carbonate (Renvela -) 800 mg PO TIDCM [facility] Last Admin: 02/02/19 18:18 Dose: 800 mg Review of Systems Cardiovascular: As noted above Respiratory: denies: Cough or Sputum Production Gastrointestinal: denies: Nausea, Vomiting, Diarrhea, Constipation or Abdominal Discomfort Musculoskeletal: No Symptoms Reported Endocrine: No Symptoms Reported - Objective Vital Signs: Last Vital Signs Temp Pulse Resp BP Pulse Ox 97.6 F 57 L 18 105/44 L 100 02/03/19 02:00 02/03/19 02:00 02/03/19 02:00 02/03/19 02:00 02/02/19 21:00 Intake & Output 01/31/19 02/01/19 02/02/19 02/03/19 23:59 23:59 23:59 23:59 Intake Total 60 450 Balance 60 450 Weight 181 lb 7.047 oz 181 lb 7.047 oz Neck: Supple Negative JVD No Bruit Cardiovascular: S1 S2 Irregularly Irregular Grade 2/6 SM Respiratory: Diminished Breath Sounds at the Bases Bilaterally Gastrointestinal: Soft Benign Normal Bowel Sounds Ext: Trace Edema Bilaterally Labs: CBC, BMP 02/02/19 06:10 02/02/19 18:00 Hepatic Panel Total Bilirubin 0.4 mg/dL (0.2-1) 02/02/19 18:00 AST 25 U/L (15-37) 02/02/19 18:00 ALT 17 U/L (13-61) 02/02/19 18:00 Alkaline Phosphatase 93 U/L (45-117) 02/02/19 18:00 Albumin 2.7 g/dl (3.4-5.0) L 02/02/19 18:00 INR, PTT INR 4.10 (0.83-1.09) H* 02/02/19 06:10 Assessment/Plan ASSESSMENT: 1. Hypotension, asymptomatic precluding HD continuation, initiated on Midodrine 2. Diastolic LV dysfunction with chronic class I-II NYHA classification LV failure, clinically compensated/euvolemic 3. CAD post CABG/PCI (stent) evidence of demand ischemia angina pectoris 4. Persistent atrial fibrillation [id number] score of 5 on A/C therapy/ Coumadin therapy, supra-therapeutic INR 5. Hypertension history, hypotensive as noted above 6. Hypercholesterolemia 7. MR mild to moderate in severity 8. TR moderate in severity 9. Carotid stenosis, moderate in severity 10. COPD 11. ESRD on HD 12. Anemia/thrombocytopenia PLAN: 1. Continue Midodrine therapy to assist with blood pressure maintainance, dose can titrated as needed, can be utilized on HD days only if needed 2. Ideally should be on B-Blockers, hemodynamics permitting, defer at this point 3. Ideally should be on ACEI or ARBS, hemodynamics permitting, defer at this point 4. Continue Crestor 5. Continue A/C with Coumadin indefinitely unless absolutely contraindicated with caution in view of the above noted anemia/thrombocytopenia (transfuse to maintain Hg equal or > 8.0, maintain INR 2-3) 6. HD as per renal service 7. As outlined in yesterdays note can be D/C home from the cardiovascular point of view Celeste Rosales M.D.
[2019-02-03] MEDS: MIDODRINE HCL 5 MG TABLET PO SCH ×2 (07:42→10:49)
--- NOTE | 2019-02-03 07:56 | PN ---
Teaching Attending Note Name of Resident: Galilea Chakraborty ATTENDING PHYSICIAN STATEMENT I saw and evaluated the patient. I reviewed the resident's note and discussed the case with the resident. I agree with the resident's findings and plan as documented. 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 patient was DC to [facility] with HD re admitted with Hypotention and bradycardia, evaluted by Nephrology and acrdiology consult recommonded adding Midodrine and Dc back to [facility] after HD. Problem List - Problems (1) Acute on chronic diastolic (congestive) heart failure Code(s): I50.33 - ACUTE ON CHRONIC DIASTOLIC (CONGESTIVE) HEART FAILURE At present at his base line (2) [id number] kidney injury Assessment/Plan: Recived HD Code(s): N17.9 - ACUTE KIDNEY FAILURE, UNSPECIFIED; N18.9 - CHRONIC KIDNEY DISEASE, UNSPECIFIED Qualifiers: Acute renal failure type: unspecified Chronic kidney disease stage: unspecified stage Qualified Code(s): N17.9 - Acute kidney failure, unspecified ; N18.9 - Chronic kidney disease, unspecified (3) Status post insertion of drug-eluting stent into left anterior descending ( LAD) artery Assessment/Plan: no acute issue Code(s): Z95.5 - PRESENCE OF CORONARY ANGIOPLASTY IMPLANT AND GRAFT (4) HTN (hypertension) Assessment/Plan: Low BP so on hold of BP meds Code(s): I10 - ESSENTIAL (PRIMARY) HYPERTENSION Qualifiers: Hypertension type: essential hypertension Qualified Code(s): I10 - Essential (primary) hypertension (5) Atrial fibrillation Assessment/Plan: rtae controlled decrese dose of coumadin to 2.5 mg and F/U INR Code(s): I48.91 - UNSPECIFIED ATRIAL FIBRILLATION Qualifiers: Atrial fibrillation type: permanent Qualified Code(s): I48.2 - Chronic atrial fibrillation (6) Hx of CABG Assessment/Plan: No actinve issue cont ranexa Code(s): Z95.1 - PRESENCE OF AORTOCORONARY BYPASS GRAFT (7) Pleural effusion Assessment/Plan: b/L due to CHF S/P Rt sided chest tube aspiration now removed. Code(s): J90 - PLEURAL EFFUSION, NOT ELSEWHERE CLASSIFIED (8) Hypokalemia Assessment/Plan: still low K will replete f/u BMP. (9) Supratherapeutic INR Assessment/Plan: Hold coumadin, monitor INR daily resume back on reduced dose once INR is around < 2.5 (10) Hypotention: Assessment/Plan: Patient BP is stable after adding Midodrine Disposition; All constant are agreed that patient can be Dc home to [facility] after HD
[2019-02-03 08:36] LABS: BASO % 1.4 % (0-2.0); EOS % 4.3 % (0-4.5); HEMATOCRIT 24.8 % (35.4-49); HEMOGLOBIN 8.3 GM/dL (11.7-16.9); LYMPH % 15.1 % (8-40); MCH 32.1 pg (25.7-33.7); MCHC 33.5 g/dl (32.0-35.9); MEAN CELL VOLUME 95.7 fl (80-96); MEAN PLT VOLUME 7.8 fl (7.5-11.1); NEUT % 68.2 % (42.8-82.8); PLATELET COUNT 90 K/MM3 (134-434); RBC 2.59 M/mm3 (4.00-5.60); RDW 16.2 % (11.9-15.9)
[2019-02-03] MEDS ORDERED: SODIUM CHLORIDE 250 ML IV PRN (09:00)
[2019-02-03] MEDS ORDERED: EPOETIN ALFA 3,000 UNIT/1 ML ML SQ ONE (09:00)
[2019-02-03 09:11] LABS: ALBUMIN 2.9 g/dl (3.4-5.0); ALK PHOS 87 U/L (45-117); ANION GAP 12 MMOL/L (8-16); BILIRUBIN,TOTAL 0.4 mg/dL (0.2-1); BLOOD UREA NITROGEN 61 mg/dL (7-18); CALCIUM 7.7 mg/dL (8.5-10.1); CHLORIDE 99 mmol/L (98-107); CO2 27 mmol/L (21-32); CREATININE 5.7 mg/dL (0.55-1.3); GLUCOSE,RANDOM 83 mg/dL (74-106); POTASSIUM 3.3 mmol/L (3.5-5.1); SGOT/AST 24 U/L (15-37); SGPT/ALT 17 U/L (13-61); SODIUM 138 mmol/L (136-145); TOT PROT 5.7 g/dl (6.4-8.2)
[2019-02-03 09:31] LABS: PROTHROMBIN TIME (PATIENT) 50.5 SEC (9.7-13.0)
--- NOTE | 2019-02-03 09:35 | PN ---
Progress Note (short form) - Note Progress Note: Hospitalist to document today. Transferred back to the hospital from the [facility] where he was having inpatient dialysis but significantly lower BP readings. He could not be dialyzed hence the transfer. There were no significant changes in his lab so Dr. Frank Rosales placed the patient on Midodrine. BP today 109/56.
[2019-02-03] MEDS ORDERED: POTASSIUM CHLORIDE ORAL LIQUID 20 MEQ/15 ML PO ONE (10:00)
[2019-02-03 10:28] LABS: INR 4.22 (0.83-1.09)
[2019-02-03] MEDS: SEVELAMER CARBONATE 800 MG TAB (FP) PO SCH ×2 (10:43→12:06)
[2019-02-03] MEDS: MULTIVITAMINS (DAILY MVI) TABLET (FP) PO SCH (10:44)
[2019-02-03] MEDS: ALLOPURINOL 100 MG TABLET (FP) PO SCH (10:44)
[2019-02-03] MEDS: CHOLECALCIFEROL (VITAMIN D3) 1,000 UNIT TABLET (FP) PO SCH (10:46)
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
--- NOTE | 2019-02-03 11:55 | PN ---
Progress Note, Physician History of Present Illness: Pt seen and examined at bedside. He is awake and alert. He tolerated HD. He feels that his breathing is improved. His bp is improved with midodrine. - Current Medication List Current Medications: Active Medications Allopurinol (Zyloprim -) 150 mg PO DAILY FORMERLY [facility], [facility]1983 Last Admin: 02/03/19 10:44 Dose: 150 mg Artificial Tears (Artificial Tears) 1 drop OU Q8H PRN PRN Reason: DRY EYES Cholecalciferol (Vitamin D3 -) 2,000 unit PO DAILY [facility]LY [facility], [facility] Last Admin: 02/03/19 10:46 Dose: 2,000 unit Sodium Chloride (Normal Saline -) 250 mls @ 3,000 mls/hr IV PRN PRN PRN Reason: Hypotension during Dialysis Stop: 02/04/19 08:59 Midodrine (Proamatine -) 5 mg PO BID-MID FOR[facility]LY [facility], [facility] Last Admin: 02/03/19 10:49 Dose: Not Given Multivitamins/Minerals/Vitamin C (Tab-A-Vit -) 1 tab PO DAILY FOR[facility]LY [facility], [facility] Last Admin: 02/03/19 10:44 Dose: 1 tab Rosuvastatin Calcium (Crestor -) 5 mg PO HS [facility], [facility] Last Admin: 02/02/19 21:38 Dose: 5 mg Sevelamer Carbonate (Renvela -) 800 mg PO TIDCM FOR[facility], [facility] Last Admin: 02/03/19 10:43 Dose: Not Given - Objective Vital Signs: Vital Signs Temperature 98.2 F 02/03/19 07:10 Pulse Rate 63 02/03/19 10:35 Respiratory Rate 18 02/03/19 10:35 Blood Pressure 114/53 L 02/03/19 10:35 O2 Sat by Pulse Oximetry (%) 100 02/02/19 21:00 Constitutional: Yes: Calm Eyes: Yes: Conjunctiva Clear HENT: Yes: Atraumatic Neck: Yes: Supple Cardiovascular: Yes: S1, S2 Respiratory: Yes: On Nasal O2 Gastrointestinal: Yes: Soft Genitourinary: Yes: WNL Musculoskeletal: Yes: WNL Edema: LLE: Trace, RLE: Trace Neurological: Yes: Oriented Psychiatric: Yes: Oriented Labs: CBC, BMP 02/03/19 07:15 02/03/19 10:30 INR, PTT INR 4.22 (0.83-1.09) H* 02/03/19 08:30 Assessment/Plan Current Medications Generic Name Dose Route Start Last Admin Trade Name Brandon PRN Reason Stop Dose Admin Allopurinol 150 mg 02/02/19 10:00 02/03/19 10:44 Zyloprim - PO 150 mg DAILY JAYCE Administration Artificial Tears 1 drop 02/01/19 22:40 Artificial Tears OU Q8H PRN DRY EYES Cholecalciferol 2,000 unit 02/02/19 10:00 02/03/19 10:46 Vitamin D3 - PO 2,000 unit DAILY JAYCE Administration Sodium Chloride 250 mls @ 3,000 mls/hr 02/03/19 09:00 Normal Saline - IV 02/04/19 08:59 PRN PRN Hypotension during Dialysis Midodrine 5 mg 02/02/19 10:00 02/03/19 10:49 Proamatine - PO Not Given BID-MID JAYCE Multivitamins/Minerals/Vitamin C 1 tab 02/02/19 10:00 02/03/19 10:44 Tab-A-Vit - PO 1 tab DAILY JAYCE Administration Rosuvastatin Calcium 5 mg 02/02/19 22:00 02/02/19 21:38 Crestor - PO 5 mg HS JAYCE Administration Sevelamer Carbonate 800 mg 02/02/19 08:00 02/03/19 10:43 Renvela - PO Not Given TIDCM JAYCE Impression 1. ESRD 2. CKD 3. CHF 4. hypotension 5. resp failure requiring bipap 6. a-fib 7. hld 8. bilateral pleural effusions 9. anemia 10. hypokalemia Plan - HD today - bp meds stopped - pt on midodrine - replace potassium - discussed with medical team
[2019-02-03 14:48] VITALS: TEMP 98
[2019-02-03 17:54] VITALS: BP 100/57; PULSE 64
[2019-02-05 02:19] LABS: HBSAG SCREEN Negative (Negative); HEP B CORE AB, TOT Negative (Negative)
== END 2019-02-03 16:30 | DRG 312 ==
LOC: JER 18:02 → JERBED 21:10 → J4S 23:14
PROVIDERS: ADMIT Internal Medicine; ATTEND Internal Medicine
PROC: 5A1D70Z Performance of Urinary Filtration, Intermittent, Less than 6 Hours Per Day (ICD-10-PCS; principal; 2019-02-03)
DX: I95.3 Hypotension of hemodialysis (principal); N18.6 End stage renal disease; J96.00 Acute respiratory failure, unspecified whether with hypoxia or hypercapnia; I48.1 Persistent atrial fibrillation; J90 Pleural effusion, not elsewhere classified; I13.2 Hypertensive heart and chronic kidney disease with heart failure and with stage 5 chronic kidney disease, or end stage renal disease; I50.32 Chronic diastolic (congestive) heart failure; R00.1 Bradycardia, unspecified; E87.6 Hypokalemia; I25.10 Atherosclerotic heart disease of native coronary artery without angina pectoris; Z98.61 Coronary angioplasty status; Z95.1 Presence of aortocoronary bypass graft; E78.5 Hyperlipidemia, unspecified; Z99.2 Dependence on renal dialysis; D64.9 Anemia, unspecified; D69.6 Thrombocytopenia, unspecified; I34.0 Nonrheumatic mitral (valve) insufficiency; I36.1 Nonrheumatic tricuspid (valve) insufficiency
CPT/HCPCS: 36415; 71045-TC-FY; 80053; 82550; 82565; 83605; 83735; 83880; 84100; 84443; 84484; 84520; 85025; 85610; 85730; 86704; 86706; 86708; 86803; 86850; 86900; 86901; 87040; 87340; 93005; 93010; 99285-25; J0885

== ENCOUNTER 2019-02-03 18:44 | Emergency (ER) | payer OTHER, MEDICARE ==
[2019-02-03 19:39] VITALS: TEMP 98.5; BMI 21.8
--- NOTE | 2019-02-03 19:42 | PDOC ---
History of Present Illness - General Chief Complaint: Blood Pressure Problem Stated Complaint: LOW BLOOD PRESSURE Time Seen by Provider: 02/03/19 19:32 - History of Present Illness Initial Comments: 02/03/19 20:42 Patient is an 88 year old male with past medical history of HTN, HLD, Afib on coumadin, carotid stenosis, CAD s/p CABG, s/p PCI, was brought in from dialysis clinic after patient was noted to be hypotensive and bradycardic and subsequently discharged after being started on midodrine twice a day. Last dose was this morning at 7:42am, BP upon discharge was 100/57 at 16:25. Upon arrival at [facility], His systolic BP was 88 so he was sent back to our ED. Here patient is asymptomatic, only complaining of bleeding at various site over his arms which are bandaged, attributed to his supratherapeutic INR (for which Coumadin was held) Patient dfenies dizziness, chest pain, sob n/v/d. Past History - Past Medical History Allergies/Adverse Reactions: Allergies Allergy/AdvReac Type Severity Reaction Status Date / Time No Known Allergies Allergy Verified 02/03/19 19:39 Home Medications: Ambulatory Orders Ranolazine [Ranexa -] 500 mg PO BID 03/22/12 Cholecalciferol (Vitamin D3) [Vitamin D -] 2,000 unit PO DAILY 03/13/18 Vit A/Vit C/Vit E/Zinc/Copper [Preservision Areds Tablet] 1 each PO DAILY Allopurinol [Zyloprim -] 150 mg PO DAILY 12/30/18 Rosuvastatin [Crestor -] 3 mg PO HS 12/30/18 Polyvinyl Alcohol [Artificial Tears] 1 drop OU Q8H PRN drops 01/29/19 Sevelamer Carbonate [Renvela -] 800 mg PO TIDCM tab 01/29/19 Midodrine HCl [Proamatine -] 5 mg PO BID-MID tablet 02/03/19 Warfarin Sodium 2.5 mg PO HS 30 Days #30 tablet 02/03/19 Anemia: Yes Asthma: No Cancer: No Cardiac Disorders: No (CHF, 2V CABG, carotic stenosis,CAD,AFib, PCI w/ LUIS EDUARDO) CVA: No COPD: Yes CHF: Yes (HFpEF (Heart Failure with preserved Ejection Fraction)) Dementia: No Diabetes: No GI Disorders: Yes (C-DIFF, HX OF PERFORATED COLON AFTER HIP SURGERY) Disorders: Yes (NEPHROLITHIASIS) HTN: Yes Hypercholesterolemia: Yes Liver Disease: No Seizures: No Thyroid Disease: No - Surgical History Abdominal Surgery: Yes (12/2011 hemicolectomy for perforated cecum) Appendectomy: Yes Cardiac Surgery: Yes (2 VESSEL CABG,CARDIAC STENT) Cholecystectomy: No Lung Surgery: No Neurologic Surgery: No Orthopedic Surgery: Yes (orif rt forearm; lt hip replacement 10 yrs ago; rt hip 2011) - Immunization History Immunization Up to Date: Yes - Suicide/Smoking/Psychosocial Hx Smoking History: Never smoked Have you smoked in the past 12 months: No Number of Cigarettes Smoked Daily: 0 If you are a former smoker, when did you quit?: 35 years ago Cigars Per Day: 0 Information on smoking cessation initiated: No 'Breaking Loose' booklet given: 10/04/18 Hx Alcohol Use: No Drug/Substance Use Hx: No Substance Use Type: None Hx Substance Use Treatment: No Review of Systems - Review of Systems Able to Perform ROS?: Yes Is the patient limited Greek proficient: No Constitutional: No: Symptoms Reported HEENTM: No: Symptoms Reported Respiratory: No: Symptoms reported Cardiac (ROS): No: Symptoms Reported ABD/GI: No: Symptoms Reported : No: Symptoms Reported Musculoskeletal: No: Symptoms Reported Integumentary: Yes: See HPI Neurological: No: Symptoms reported All Other Systems: Reviewed and Negative *Physical Exam - Vital Signs Last Vital Signs Temp Pulse Resp BP Pulse Ox 98.5 F 61 18 86/50 L 96 02/03/19 19:00 02/03/19 19:00 02/03/19 19:00 02/03/19 19:00 02/03/19 19:00 - Physical Exam General Appearance: Yes: Thin HEENT: positive: EOMI, JASON, Normal ENT Inspection Respiratory/Chest: positive: Lungs Clear, Normal Breath Sounds. negative: Chest Tender, Respiratory Distress Cardiovascular: positive: Regular Rhythm, Regular Rate, S1, S2 Gastrointestinal/Abdominal: positive: Normal Bowel Sounds, Flat, Soft. negative : Tender Musculoskeletal: positive: Normal Inspection. negative: CVA Tenderness Extremity: positive: Normal Capillary Refill, Normal Inspection, Normal Range of Motion Integumentary: positive: Warm, Other (Small skin tears over arms, not actively bleeding. ) Neurologic: positive: Fully Oriented, Alert, Normal Mood/Affect Medical Decision Making - Medical Decision Making 02/03/19 21:29 Patient missed his second dose of midodrine today. Spoke to Dr. Montgomery who saw the patient this morning and advised to give missed dose of midodrine and reassess BP. BP now at 98. Called rehab center to let them know of the patient usual bp around 98-100. Unable to reach Dr. Clarke x2 Reassured patient that bleeding is from supratherapeutic INR, readdressed instructions to stop Coumadin until coumadin therapeutic. Wounds in the arm redressed. Ok to send back to nursing care facility *DC/Admit/Observation/Transfer Diagnosis at time of Disposition: Low blood pressure - Discharge Dispostion Disposition: HOME Condition at time of disposition: Fair Decision to Admit order: No - Referrals - Patient Instructions Printed Discharge Instructions: DI for Hypotension, Midodrina Additional Instructions: Please take your Midodrine medication to assist with blood pressure. Please take it twice a day. Please don't take Warfarin tonight 02/03/19 and check your INR tomorrow. If in therapeutic range, continue to take 2.5 mg as prescribed. IT needs to be adjusted accordingly. Please see discharge instructions from your earlier discharge today. Come back to the emergency department for any new, worsening or concerning symptom. - Post Discharge Activity
[2019-02-03] MEDS ORDERED: MIDODRINE HCL 5 MG TABLET PO ONE (20:20)
[2019-02-03 20:21] VITALS: PULSE 56
[2019-02-03] MEDS ORDERED: BACITRACIN 0.9 GM PACKET ONE (21:11)
[2019-02-03 23:08] VITALS: BP 91/44
--- NOTE | 2019-02-04 00:41 | PDOC ---
Documentation entered by Domenic Miller SCRIBE, acting as scribe for Shannan Davis MD. Shannan Davis MD: This documentation has been prepared by the Paul montemayor Matthew, SCRIBE, under my direction and personally reviewed by me in its entirety. I confirm that the documentation accurately reflects all work, treatment, procedures, and medical decision making performed by me. Attending Attestation - Resident Resident Name: Grady Jean - ED Attending Attestation I have performed the following: I have examined & evaluated the patient, The case was reviewed & discussed with the resident, I agree w/resident's findings & plan, Exceptions are as noted - HPI HPI: 02/03/19 20:59 Patient is an 88 year old male with a significant past medical history of HTN, HLD, Afib on coumadin, carotid stenosis, CAD s/p CABG, s/p PCI who presents to the ED with complaints of hypotension that began earlier this evening. As per [facility] staff, patient was discharged from this hospital earlier today at 4:30pm and [facility] They report upon arrival, patient's systolic blood pressure was found to be 88, prompting them to send the patient back to the ED for further evaluation. Denies chest pain, Sob. Denies nausea, vomiting. Denies fever, chills. Denies contact with sick individuals, out of state travelling. Denies constipation, diarrhea. Denies dysuria, hematuria. Denies any other symptoms. Allergies: None Social history: Former smoker. No alcohol. No illicit drugs. Surgical history: Hemicolectomy for perforated cecum, Appendicitis, 2-vessel CABG, PCI, ORIF, rt forearm, Left hip replacement PMD: None - Physicial Exam PE: 02/03/19 21:28 tall ,slender 88 yo male d/c from the hospital at 4:30 today and sent to his facilty but he was sent back when his SBP was found to be 88 head ncat neck supple lungs good air mvmt, no rales,no wheezing cvs reg irreg torso rt sided dialysis access abd flat,nontender skin avulsive wounds on his b/l forearms ,no active bleeding,good ulnar and radial pulses ext +1 LE edema b/l neuro axox3,moving all extremities - Medical Decision Making 02/03/19 21:32 pt chronically has a systolic blood pressure in the 90s and had been written for midodrine which he had not taken this afternoon - after receiving his afternoon midodrine his systolic blood pressure was 98 -I removed his old kerlex bandages to examine his avulsive forearm wounds due to chronic coumadin use ,there was no purulence,no active bleeding pt will be discharged back to his facility 02/03/19 22:03 02/03/19 22:06
--- NOTE | 2019-02-04 12:34 | EKG ---
Test Reason : Blood Pressure : / mmHG Vent. Rate : 071 BPM Atrial Rate : 060 BPM P-R Int : 000 ms QRS Dur : 114 ms QT Int : 460 ms P-R-T Axes : 000 099 -36 degrees QTc Int : 499 ms BASELINE ARTIFACT ACCELERATED JUNCTIONAL RHYTHM RIGHTWARD AXIS INCOMPLETE RIGHT BUNDLE BRANCH BLOCK CANNOT RULE OUT ANTERIOR INFARCT , AGE UNDETERMINED ABNORMAL ECG Confirmed by MD FREDDIE, UNIQUE ([id number]) on 02/04/2019 12:34:02 PM Referred By: Confirmed By:UNIQUE FRAZIER MD
== END 2019-02-04 00:55 ==
LOC: JER 18:44
DX: I95.9 Hypotension, unspecified (principal); I13.2 Hypertensive heart and chronic kidney disease with heart failure and with stage 5 chronic kidney disease, or end stage renal disease; N18.6 End stage renal disease; I50.89 Other heart failure; N17.8 Other acute kidney failure; Z99.2 Dependence on renal dialysis; Z95.1 Presence of aortocoronary bypass graft; Z95.5 Presence of coronary angioplasty implant and graft; E78.00 Pure hypercholesterolemia, unspecified; I48.91 Unspecified atrial fibrillation; Z79.01 Long term (current) use of anticoagulants; I65.29 Occlusion and stenosis of unspecified carotid artery; J44.9 Chronic obstructive pulmonary disease, unspecified; D64.9 Anemia, unspecified; Z87.442 Personal history of urinary calculi; Z96.643 Presence of artificial hip joint, bilateral; Z87.19 Personal history of other diseases of the digestive system
CPT/HCPCS: 93005; 93010; 99283-25

== ENCOUNTER 2019-02-13 23:28 | Inpatient (IN) | payer OTHER, MEDICARE ==
--- NOTE | 2019-02-13 23:39 | PDOC ---
History of Present Illness - General Stated Complaint: RESPPIRATORY DISTRESS Time Seen by Provider: 02/13/19 23:38 History Source: Patient, Spouse () Exam Limitations: No Limitations - History of Present Illness Initial Comments: Pt is an 88 yo M, with PMH of HTN, HLD, Afib (on coumadin), carotid stenosis, CAD (s/p CABG and PCI), dCHF on dialysis (T/R/S), who is presenting via EMS from [facility] with complaints of acute SOB since this afternoon after his dialysis session. Pt has been recently admitted to ICU for b/l pleural effusions, requiring pressors at that time. Pt has been persistently hypotensive 2/2 dialysis sessions, requiring midodrine for BP maintenance. He also endorses generalized fatigue and diminished PO intake due to decreased appetite and nausea. Per the pts , the pt had some AMS after his dialysis session, with systolic BP in the 80s, and seemed confused about where he was. Pt is normally A/O and has been wheel-chair bound since ICU discharge. Pt was found to have INR yesterday of >9, and coumadin was held. Pt denies any fevers/ chills, headache, vision changes, syncope, chest pain, palpitations, vomiting, abdominal pain, urinary symptoms, blood in his stool or urine, diarrhea/ constipation, or leg swelling from baseline. Social: Pt denies any cigarette, alcohol, or drug use. Pt denies any recent travel or sick contacts. Surgical: perforated bowel, L hip fracture, CABG/PCI. Family: no relevant history. 02/14/19 06:14 -- Denise Aleman: [phone]; also pts HCP. PT IS DNR/DNI, confirmed 02/14/2019, forms in chart. 02/14/19 06:16 Past History - Travel Traveled outside of the country in the last 30 days: No Close contact w/someone who was outside of country & ill: No - Past Medical History Allergies/Adverse Reactions: Allergies Allergy/AdvReac Type Severity Reaction Status Date / Time No Known Allergies Allergy Verified 02/03/19 19:39 Home Medications: Ambulatory Orders Ranolazine [Ranexa -] 500 mg PO BID 03/22/12 Cholecalciferol (Vitamin D3) [Vitamin D -] 2,000 unit PO DAILY 03/13/18 Vit A/Vit C/Vit E/Zinc/Copper [Preservision Areds Tablet] 1 each PO DAILY Allopurinol [Zyloprim -] 150 mg PO DAILY 12/30/18 Rosuvastatin [Crestor -] 3 mg PO HS 12/30/18 Polyvinyl Alcohol [Artificial Tears] 1 drop OU Q8H PRN drops 01/29/19 Sevelamer Carbonate [Renvela -] 800 mg PO TIDCM tab 01/29/19 Midodrine HCl [Proamatine -] 5 mg PO BID-MID tablet 02/03/19 Warfarin Sodium 2.5 mg PO HS 30 Days #30 tablet 02/03/19 Anemia: Yes Asthma: No Cancer: No Cardiac Disorders: No (CHF, 2V CABG, carotic stenosis,CAD,AFib, PCI w/ LUIS EDUARDO) CVA: No COPD: Yes CHF: Yes (HFpEF (Heart Failure with preserved Ejection Fraction)) Dementia: No Diabetes: No GI Disorders: Yes (C-DIFF, HX OF PERFORATED COLON AFTER HIP SURGERY) Disorders: Yes (NEPHROLITHIASIS) HTN: Yes Hypercholesterolemia: Yes Liver Disease: No Seizures: No Thyroid Disease: No - Surgical History Abdominal Surgery: Yes (12/2011 hemicolectomy for perforated cecum) Appendectomy: Yes Cardiac Surgery: Yes (2 VESSEL CABG,CARDIAC STENT) Cholecystectomy: No Lung Surgery: No Neurologic Surgery: No Orthopedic Surgery: Yes (orif rt forearm; lt hip replacement 10 yrs ago; rt hip 2011) - Immunization History Immunization Up to Date: Yes - Suicide/Smoking/Psychosocial Hx Smoking History: Never smoked Have you smoked in the past 12 months: No Number of Cigarettes Smoked Daily: 0 If you are a former smoker, when did you quit?: 35 years ago Cigars Per Day: 0 'Breaking Loose' booklet given: 10/04/18 Hx Alcohol Use: No Drug/Substance Use Hx: No Substance Use Type: None Hx Substance Use Treatment: No Review of Systems - Review of Systems Able to Perform ROS?: Yes Is the patient limited Polish proficient: No Constitutional: Yes: Loss of Appetite, Malaise, Weakness, Unexplained wgt Loss ( weight loss since ICU stay). No: Chills, Diaphoresis, Fever, Night Sweats, Weight Stable HEENTM: No: Blurred Vision, Double Vision, Nose Pain, Nose Congestion, Throat Pain, Throat Swelling, Difficulty Swallowing Respiratory: Yes: Shortness of Breath, SOB at Rest. No: Cough, Orthopnea, Wheezing, Productive cough, Hemoptysis Cardiac (ROS): No: Chest Pain, Edema, Irregular Heart Rate, Lightheadedness, Palpitations, Syncope, Chest Tightness ABD/GI: Yes: Diarrhea (chronic loose stool, prior occult negative), Poor Appetite, Poor Fluid Intake. No: Abdominal Distended, Constipated, Nausea, Rectal Bleeding, Vomiting, Abdominal cramping : Yes: Other (minimal urine production since dialysis). No: Burning, Dysuria , Pain, Urgency Musculoskeletal: Yes: Muscle Weakness (generalized fatigue and weakness, no focal deficits). No: Back Pain, Joint Pain, Muscle Pain Integumentary: Yes: Bruising (bruising around IV lines). No: Rash Neurological: No: Headache, Numbness, Weakness, Unsteady Gait (has been wheelchair bound since last ICU admission), Dizziness Psychiatric: Yes: Change in Appetite. No: Depression, Stressors, Sleep Pattern Change Endocrine: No: Increased Urine, Change in Weight Hematologic/Lymphatic: Yes: Anemia, Easy Bleeding, Easy Bruising. No: Blood Clots *Physical Exam - Physical Exam Comments: hypotensive (95/45 on presentation), 99% on 2L NC, shallow inspirations, pt afebrile. Pt appears pale with cachectic body habitus. Pt alert and oriented x3. Responds appropriately to all questions. morning nanny generally intact, muscular strength and sensation intact. No midline spinal tenderness, step-offs, or crepitus. Soft lipoma without tenderness on cervical spine (chronic). Head normocephalic, atraumatic. Eyes PERRLA, EOMI. Oropharynx without erythema or exudates, no LAD b/l. Dried blood around chapped lips, no obvious gingival or oral active bleeding. No nasal congestion, hearing intact. Clear heart sounds, S1/S2, no JVD, or heart murmur. B/l pitting edema with hyperpigmented skin on both legs up to mid hatch. Diminished lung sounds at b/l posterior bases, mild intercostal retractions. No obvious crackles nor wheezing. Access line present on upper R chest wall, with no obvious erythema nor drainage. No abdominal or CVA tenderness to palpation, no rebound, no guarding. Abdomen soft, non-distended, and with normoactive bowel sounds. Well-healed midline abdominal scar. Pt wearing diaper. B/l ecchymosis with skin bandages on b/l forearms from IV access. Skin without jaundice or rash. 02/14/19 01:03 02/14/19 02:56 02/14/19 05:03 02/14/19 05:46 ED Treatment Course - LABORATORY CBC & Chemistry Diagram: 02/14/19 00:20 02/14/19 00:20 Medical Decision Making - Medical Decision Making Pt was seen at bedside, also will be seen by attending Dr. Nicole. Pt presenting with complaints of acute SOB since this afternoon after his dialysis session. Pt has been recently admitted to ICU for b/l pleural effusions, requiring pressors at that time. Pt has been persistently hypotensive 2/2 dialysis sessions, requiring midodrine for BP maintenance. He also endorses generalized fatigue and diminished PO intake due to decreased appetite and nausea. Per the pts , the pt had some AMS after his dialysis session, with systolic BP in the 80s, and seemed confused about where he was. Pt is normally A /O and has been wheel-chair bound since ICU discharge. Pt was found to have INR yesterday of >9, and coumadin was held. Pt denies any fevers/chills, headache, vision changes, syncope, chest pain, palpitations, vomiting, abdominal pain, urinary symptoms, blood in his stool or urine, diarrhea/constipation, or leg swelling from baseline. Considering subsequent pleural effusions vs bleeding 2/2 to supratherapeutic coumadin (GI bleed, urine) with subsequent anemia vs ACS vs HF exacerbation vs infection vs electrolyte imbalances vs failure to thrive 2/2 decreased PO intake. Ordered work-up including CBC, CMP, VBG, Mg, cardiac profile, ECG, chest x-ray, coags, and type & screen. Pt provided 2 L NC O2 for SOB. Will continue to reassess pt and monitor for symptomatic improvement. ECG: Junctional rhythm with occasional PVC, RAD. Diffuse ST segment flattening. No significant changes from prior ECG. 02/14/19 01:04 Pt developed low-grade fever (rectal) of 99.8 -- ordered blood cultures and lactic acid. CBC: H/H 5.8/17.8 (hb over 8 on prior discharge) -- ordered 1L packed RBCs and sent stool for occult blood. CMP: K 2.6, BUN/Cr 38/3/5 (pt baseline after dialysis) -- ordered 3x 10 meq KCL riders; pt has been minimally tolerating PO intake Trop 0.21 -- likely demand, no acute EKG changes INR was still pending, called lab who stated they had issue with barcode and the machine, had to be re-run. INR resulted as >15 -- ordered 5 mg IV Vitamin K and 2 units of FFP Stool for occult blood positive -- started 40 mg IV protonix Pt was accepted to hospitalist team (Dr. Lynn) for ICU; hospitalist team requested stat non-contrast head CT to eval for bleed. Also ordered additional PO KCl, but pts family declined, as they did not feel that he could tolerate the treatment. Documented by nursing staff. ICU team saw pt at bedside. Ordered protonix drip. Took pt for CT scan of head on the monitor. I accompanied the pt to CT with nursing staff. Pt stable during the imaging and was in NAD. Family signed DNR and DNI form, placed in chart. CT head negative for acute pathology. Pt remains stable in the ER and has 3 peripheral lines with interventions running. Pts HR in 50s, MAP >65; pt awakens when stimulated and answers questions appropriately. 02/14/19 05:21 02/14/19 05:48 Pt remains stable -- MAP >65 and is resting comfortably. Pending ICU bed. 02/14/19 06:16 *DC/Admit/Observation/Transfer Diagnosis at time of Disposition: Acute on chronic diastolic (congestive) heart failure, ESRD (end stage renal disease) on dialysis, Hx of CABG, SOB (shortness of breath) Anemia Qualifiers: Anemia type: unspecified type Qualified Code(s): D64.9 - Anemia, unspecified Warfarin toxicity Qualifiers: Encounter type: initial encounter Injury intent: accidental or unintentional Qualified Code(s): T45.511A - Poisoning by anticoagulants, accidental ( unintentional), initial encounter - Discharge Dispostion Condition at time of disposition: Guarded Decision to Admit order: Yes - Referrals Referrals: Ryan Matos MD [Staff Physician] - Celeste Rosales MD [Staff Physician] - - Patient Instructions - Post Discharge Activity
[2019-02-14 00:34] LABS: VENOUS PC02 60.5 mmHg (41-51); VENOUS PH 7.34 (7.31-7.41); VENOUS PO2 45.8 mmHg (30-40)
[2019-02-14 00:45] LABS: BASO % 0.8 % (0-2.0); EOS % 2.6 % (0-4.5); HEMATOCRIT 17.8 % (35.4-49); LYMPH % 13.4 % (8-40); MCH 31.8 pg (25.7-33.7); MCHC 32.7 g/dl (32.0-35.9); MEAN CELL VOLUME 97.3 fl (80-96); MEAN PLT VOLUME 8.7 fl (7.5-11.1); MONO % 9.5 % (3.8-10.2); NEUT % 73.7 % (42.8-82.8); PLATELET COUNT 57 K/MM3 (134-434); RBC 1.83 M/mm3 (4.00-5.60); RDW 16.6 % (11.9-15.9); WHITE BLOOD COUNT 5.8 K/mm3 (4.0-10.0)
--- NOTE | 2019-02-14 00:46 | PDOC ---
Documentation entered by Rosa Chung SCRIBE, acting as scribe for Sonia Nicole DO. Sonia Nicole, DO: This documentation has been prepared by the Sheldon montemayor Adrianna, SCRIBE, under my direction and personally reviewed by me in its entirety. I confirm that the documentation accurately reflects all work, treatment, procedures, and medical decision making performed by me. Attending Attestation - Resident Resident Name: Radha Guevara - ED Attending Attestation I have performed the following: I have examined & evaluated the patient, The case was reviewed & discussed with the resident, I agree w/resident's findings & plan, Exceptions are as noted - HPI HPI: The patient is an 88 year old male, with a significant PMH of coronary artery disease (s/p CABG, s/p PCI with LUIS EDUARDO), heart failure with preserved ejection fraction, atrial fibrillation (on Coumadin), carotid stenosis, C-diff, perforated colon (after hip surgery), nephrolithiasis, hypertension, hyperlipidemia, chronic obstructive pulmonary disease. and anemia, who presents to the emergency department BIBA from [facility] for hypotension, shortness of breath, and altered mental status for one day. As per patients , he was working on PT earlier today following dialysis, when he became hypotensive (systolic was in the 80s) and short of breath. She does state that this typically happens after treatment. Patients additionally notes he became slightly altered, not knowing where he was. She states that the patient has decreased appetite, occasional urine with minimal output, and bilateral LE edema at baseline, secondary to recent ICU admission. Patient is in wheelchair at baseline. Rehab facility notes his INR yesterday was 9. The patient denies chest pain, headache and dizziness. Denies fever, chills, nausea, vomit, diarrhea and constipation. Denies dysuria, frequency, urgency and hematuria. Allergies: NKA Past surgical history: hemicolectomy for perforated cecum, appendectomy, 2 vessel CABG, cardiac stent, ORIF of right forearm, bilateral hip replacements Social history: No reported PCP: Dr. Ryan Matos 02/14/19 00:47 - Physicial Exam PE: GENERAL: +Diffuse generalized weakness, cannot sit up or lift extremities. + Thin. +Pale. +Cachectic.. Awake, alert, and fully oriented. HEAD: No signs of trauma EYES: +Pale conjunctiva. PERRLA, EOMI, sclera anicteric. ENT: +Pale oral mucous membranes that appear dry. Auricles normal inspection, hearing grossly normal, nares patent, oropharynx clear without exudates. Moist mucosa NECK: +Lipoma to the cervical spine. Normal ROM, supple, no lymphadenopathy, JVD. LUNGS: +Diminished breath sounds at bilateral bases. No wheezes, and no crackles CHEST: +Right upper chest wall dialysis placement. +Resolving ecchymosis from dialysis placement on chest wall. No active bleeding. HEART: +Bradycardic. Regular rate and rhythm, normal S1 and S2, no murmurs, rubs or gallops ABDOMEN: Soft, nontender, normoactive bowel sounds. No guarding, no rebound. No masses EXTREMITIES: +2+ pitting edema of the bilateral lower extremities. No clubbing or cyanosis. No cords, erythema, or tenderness. Pedal pulses intact. NEUROLOGICAL: Cranial nerves II through XII grossly intact. Normal speech. SKIN: +Pale. Warm, Dry, normal turgor, no rashes or lesions noted. 02/14/19 00:54 - Critical Care Time Total Critical Care Time: 35 Critical Care Statement: The care of this patient involved high complexity decision making to prevent further life threatening deterioration of the patient 's condition and/or to evaluate & treat vital organ system(s) failure or risk of failure. - Medical Decision Making 02/14/19 00:42 I, Dr. Sonia Nicole, DO, attest that this document has been prepared under my direction and personally reviewed by me in its entirety. I further attest, that it accurately reflects all work, treatment, procedures and medical decision -making performed by me. 02/14/19 00:43 a/p: 88yo male with sob after HD today along with generalized weakness -pt is on anticoag for afib - inr yesterday per the fam was 9 -pt arrives pale - HD catheter to R chest wall -pt mildly tachypnic -pale conjunctiva -denies bleeding -denies abd pain -denies cp -too weak to sit up on his own or participate in PT -will send labs, concern for symptomatic anemia -pt did have a full HD session today -pt has 2+ pitting edema to LE -recent chest tube for fluid overload removed on last admission for pleural effusion -ekg/cxr ordered -will monitor and reassess 02/14/19 01:13 hgb 5.8 will consent for blood transfusion 02/14/19 01:26 blood consent obtain from the dark brown stool - sent for heme 02/14/19 01:47 potassium 2.6 will replace 02/14/19 01:47 pt will need to be admitted to [facility] Heart Score/ECG Review - ECG Intrepretation Comment:: 02/14/19 00:42 afib at 54, nl axis, pvc, q waves anterior waves which are age indeterminate, t wave flattening diffusely, no acute changes, unchanged from prior
[2019-02-14 01:12] LABS: HEMOGLOBIN 5.8 GM/dL (11.7-16.9)
[2019-02-14 01:26] LABS: ALBUMIN 2.5 g/dl (3.4-5.0); ALK PHOS 66 U/L (45-117); ANION GAP 6 MMOL/L (8-16); BILIRUBIN,TOTAL 0.5 mg/dL (0.2-1); BLOOD UREA NITROGEN 38 mg/dL (7-18); CALCIUM 7.9 mg/dL (8.5-10.1); CHLORIDE 101 mmol/L (98-107); CO2 33 mmol/L (21-32); CREATININE 3.5 mg/dL (0.55-1.3); GLUCOSE,RANDOM 92 mg/dL (74-106); SGOT/AST 37 U/L (15-37); SGPT/ALT 18 U/L (13-61); SODIUM 139 mmol/L (136-145); TOT PROT 5.3 g/dl (6.4-8.2)
[2019-02-14 01:28] LABS: POTASSIUM 2.6 mmol/L (3.5-5.1)
[2019-02-14] MEDS ORDERED: ACETAMINOPHEN 1000 MG/100 ML VIAL (NON FORMULARY) IVPB ONE (02:05)
[2019-02-14] MEDS ORDERED: ACETAMINOPHEN INJECTION 100 ML IVPB ONE (02:13)
[2019-02-14] MEDS ORDERED: PANTOPRAZOLE SODIUM 40 MG VIAL IVPUSH ONE (02:14)
[2019-02-14] MEDS: KCL 10 MEQ IVPB 10 MEQ/100 ML INFUS.BAG IVPB SCH ×9 (02:15→18:34)
[2019-02-14] MEDS ORDERED: PANTOPRAZOLE SODIUM 40 MG/100 ML BAG IVPB ONE (02:32)
[2019-02-14] MEDS ORDERED: POTASSIUM CHLORIDE ORAL LIQUID 20 MEQ/15 ML PO ONE (02:47)
[2019-02-14 03:02] LABS: INR > 15.00 (0.83-1.09)
[2019-02-14] MEDS ORDERED: PHYTONADIONE 10 MG/1 ML AMP IVPB ONE ×2 (03:08→05:10)
[2019-02-14] MEDS ORDERED: KCL 10 MEQ IVPB 20 MEQ/200 ML INFUS.BAG IVPB ONE (03:19)
[2019-02-14] MEDS ORDERED: POTASSIUM CHLORIDE ORAL LIQUID 20 MEQ/15 ML ONE ×2 (03:19→03:26)
--- NOTE | 2019-02-14 03:23 | HP ---
CHIEF COMPLAINT: anemia, hypokalemia PCP: Shawna HISTORY OF PRESENT ILLNESS: 88yo man with multiple comorbidities brought in from [facility] after he was found to have abnormal INR- 9 and was hypotensive. Also some respiratory distress as per his family members. ER course was notable for: (1) IV potassium (2) cxr (3) ekg Recent Travel:no PAST MEDICAL HISTORY: CAD (s/p CABG, s/p PCI w/ LUIS EDUARDO), CHF, afib (on Coumadin), carotid stenosis, C-diff, perforated colon (after hip surgery), nephrolithiasis , HTN, DLP, COPD and anemia PAST SURGICAL HISTORY: Hemicolectomy for perforated cecum, Appendectomy, 2- vessel CABG, ORIF, Left hip replacement Social History: Smoking:former Alcohol: no Drugs: no Family History: unable to obtain Allergies No Known Allergies Allergy (Verified 02/03/19 19:39) HOME MEDICATIONS: Home Medications Medication Instructions Recorded Ranolazine [Ranexa -] 500 mg PO BID 03/22/12 Cholecalciferol (Vitamin D3) 2,000 unit PO DAILY 03/13/18 [Vitamin D -] Vit A/Vit C/Vit E/Zinc/Copper 1 each PO DAILY 03/13/18 [Preservision Areds Tablet] Allopurinol [Zyloprim -] 150 mg PO DAILY 12/30/18 Rosuvastatin [Crestor -] 3 mg PO HS 12/30/18 Polyvinyl Alcohol [Artificial 1 drop OU Q8H PRN drops 01/29/19 Tears] Sevelamer Carbonate [Renvela -] 800 mg PO TIDCM tab 01/29/19 Midodrine HCl [Proamatine -] 5 mg PO BID-MID tablet 02/03/19 Warfarin Sodium 2.5 mg PO HS 30 Days #30 tablet 02/03/19 REVIEW OF SYSTEMS-unable to obtain as patient has altered mental status, not answering questions PHYSICAL EXAMINATION Vital Signs - 24 hr 02/13/19 02/14/19 23:41 02:00 Temperature 97.5 F L 99.6 F Pulse Rate 52 L Pulse Rate [ 52 L Apical] Respiratory 32 H 24 H Rate Blood Pressure 95/45 L Blood Pressure 101/51 L [Left Arm] O2 Sat by Pulse 99 100 Oximetry (%) GENERAL: Awake, altered mentation, HEAD: Normal with no signs of trauma. EYES: Pupils equal, round and reactive to light, extraocular movements intact, sclera anicteric, conjunctiva clear. No lid lag. EARS, NOSE, THROAT: Ears normal, nares patent, dried blood around labia NECK: Normal range of motion, supple without lymphadenopathy, JVD, or masses. LUNGS: Breath sounds equal, clear to auscultation bilaterally. No wheezes, and no crackles. No accessory muscle use. HEART: Regular rate and rhythm, normal S1 and S2 without murmur, rub or gallop. ABDOMEN: Soft, nontender, not distended, normoactive bowel sounds, no guarding, midline scar MUSCULOSKELETAL: Normal range of motion at all joints. No bony deformities or tenderness. No CVA tenderness. UPPER EXTREMITIES: 2+ pulses, warm, well-perfused. No cyanosis. No clubbing. No peripheral edema. LOWER EXTREMITIES: 2+ pulses, warm, well-perfused. No calf tenderness. No peripheral edema. NEUROLOGICAL: unable to assess PSYCHIATRIC: Cooperative. Good eye contact. Appropriate mood and affect. SKIN: Warm, dry, normal turgor, +eccymosis Laboratory Results - last 24 hr 02/14/19 02/14/19 02/14/19 00:20 00:20 00:20 WBC 5.8 RBC 1.83 L Hgb 5.8 L* Hct 17.8 L D MCV 97.3 H MCH 31.8 MCHC 32.7 RDW 16.6 H Plt Count 57 L D MPV 8.7 D Absolute Neuts (auto) 4.3 Neutrophils % 73.7 Lymphocytes % 13.4 Monocytes % 9.5 Eosinophils % 2.6 Basophils % 0.8 Nucleated RBC % 0 PT with INR No Result Required. INR > 15.00 H* VBG pH 7.34 POC VBG pCO2 60.5 H POC VBG pO2 45.8 H VBG HCO3 31.9 H VBG O2 Sat (Shruthi) 78.0 VBG Base Excess 6.2 H Sodium Potassium Chloride Carbon Dioxide Anion Gap BUN Creatinine Creat Clearance w eGFR Random Glucose Lactic Acid Calcium Magnesium Total Bilirubin AST ALT Alkaline Phosphatase Creatine Kinase Creatine Kinase Index CK-MB (CK-2) Troponin I Total Protein Albumin Stool Occult Blood Blood Type Antibody Screen Crossmatch 02/14/19 02/14/19 02/14/19 00:20 00:20 01:27 WBC RBC Hgb Hct MCV MCH MCHC RDW Plt Count MPV Absolute Neuts (auto) Neutrophils % Lymphocytes % Monocytes % Eosinophils % Basophils % Nucleated RBC % PT with INR INR VBG pH POC VBG pCO2 POC VBG pO2 VBG HCO3 VBG O2 Sat (Shruthi) VBG Base Excess Sodium 139 Potassium 2.6 L* Chloride 101 Carbon Dioxide 33 H Anion Gap 6 L BUN 38 H Creatinine 3.5 H Creat Clearance w eGFR 16.57 Random Glucose 92 Lactic Acid Calcium 7.9 L Magnesium 2.0 Total Bilirubin 0.5 AST 37 ALT 18 Alkaline Phosphatase 66 Creatine Kinase 200 Creatine Kinase Index 2.3 CK-MB (CK-2) 4.7 H Troponin I 0.21 H Total Protein 5.3 L Albumin 2.5 L Stool Occult Blood Positive Blood Type O POSITIVE Antibody Screen Negative Crossmatch See Detail 02/14/19 02:11 WBC RBC Hgb Hct MCV MCH MCHC RDW Plt Count MPV Absolute Neuts (auto) Neutrophils % Lymphocytes % Monocytes % Eosinophils % Basophils % Nucleated RBC % PT with INR INR VBG pH POC VBG pCO2 POC VBG pO2 VBG HCO3 VBG O2 Sat (Shruthi) VBG Base Excess Sodium Potassium Chloride Carbon Dioxide Anion Gap BUN Creatinine Creat Clearance w eGFR Random Glucose Lactic Acid 1.1 Calcium Magnesium Total Bilirubin AST ALT Alkaline Phosphatase Creatine Kinase Creatine Kinase Index CK-MB (CK-2) Troponin I Total Protein Albumin Stool Occult Blood Blood Type Antibody Screen Crossmatch CXR reviewed ekg -reviewed- junctional rhythm vs afib, PVCs, possible slight U waves seen on EKG ASSESSMENT/PLAN: #Severe symptomatic anemia- suspected GI bleed in setting of elevated INR->15- likely coumadin toxicity, positive FOBT+ -admit to ICU for monitoring -2 PRBCs ordered -5mg vitamin K IV -FFP 2 units -repeat PT,PTT, cbc after blood products -GI consult suspected GI bleed -avoid heparin, coumadin, or ASA -monitor for bleeding #AMS - must r/o intracranial hemorrhage -head CT to r/o intracranial bleed #Severe hypokalemia with possible U waves - may be from overaggressive HD -supplenent K IV and PO -cardiac monitoring #Borderline hypotension- chronic, normal lactate-not hypoperfusing , absence of tachycardia -monitor BP -NO indication for central venous access at this time especially in setting of coagulopathy -avoid antihypertensives at this time #ESRD -renal consult #Tropinemia- likely secondary to demand ischemia from severe anemia -trend troponins -echo -cardiology consult placed #DVT ppx -SCDs -INR supratherapeutic #Advanced directive -patient is DNR Visit type - Emergency Visit Emergency Visit: Yes ED Registration Date: 02/14/19 Care time: The patient presented to the Emergency Department on the above date and was hospitalized for further evaluation of their emergent condition. - New Patient This patient is new to me today: Yes Date on this admission: 02/14/19 - Critical Care Critical Care patient: Yes Total Critical Care Time (in minutes): 30 Critical Care Statement: The care of this patient involved high complexity decision making to prevent further life threatening deterioration of the patient 's condition and/or to evaluate & treat vital organ system(s) failure or risk of failure.
[2019-02-14] MEDS ORDERED: PHYTONADIONE 10 MG/1 ML AMP ONE ×2 (03:26→06:25)
[2019-02-14] MEDS ORDERED: ONDANSETRON 4 MG/2 ML VIAL IVPUSH PRN (03:49)
--- NOTE | 2019-02-14 03:52 | CONSULT ---
Consultation: REQUESTING PROVIDER: Dr. Guevara CONSULT REQUEST: We have been asked to medically evaluate this patient for GI bleed ; . HISTORY OF PRESENT ILLNESS: This is a 88 year old male with a significant medical history including CAD s/p CABG (JHAVERI to mLAD, SVG to RPDA), s/p PCI/LUIS EDUARDO to LAD, persistent AF on Coumadin , diastolic dysfunction, HTN, hypercholesterolemia and carotid stenosis, CKD on HD starting in december 2018, sent over from [facility] due to lethargy, poor oral intake, found to be hypotensive with INR of 15, H/H 5.8/17.8, stool occult blood positive. As per patient DNR, not DNI. Patient lethargic unable to answer questions Recent hospitalization includes: b/l pleural effusion that required rt chest tube; cardiogenic shock placed on dobutamine/levophed required, currently maintained on midodrine. Renal failure requiring HD, now with permacath. Dialysis TTS. REVIEW OF SYSTEMS: n/a PHYSICAL EXAMINATION Vital Signs - 24 hr 02/13/19 02/14/19 23:41 02:00 Temperature 97.5 F L 99.6 F Pulse Rate 52 L Pulse Rate [ 52 L Apical] Respiratory 32 H 24 H Rate Blood Pressure 95/45 L Blood Pressure 101/51 L [Left Arm] O2 Sat by Pulse 99 100 Oximetry (%) GENERAL:very pale; lethargic; not arousable; moans HEAD: Normal with no signs of trauma. THROAT: oropharynx clear without exudates. dry mucous membranes. dried blood on lips and tongue NECK: JVD LUNGS:decreased breath sounds b/l HEART: jesus and irreg rhythm, normal S1 and S2 without murmur, rub or gallop. ABDOMEN: Soft, nontender, not distended, normoactive bowel sounds, no guarding, no rebound, no masses. No hepatomegaly or splenomegaly. MUSCULOSKELETAL: Normal range of motion at all joints. No bony deformities or tenderness. No CVA tenderness. UPPER EXTREMITIES: 2+ pulses, warm, well-perfused. No cyanosis. No clubbing. Cap refill <2 seconds. No peripheral edema. LOWER EXTREMITIES: 2+ pulses, warm, well-perfused. No calf tenderness. b/l 2+ peripheral edema. NEUROLOGICAL: lethargic ; hardly arousable SKIN: Warm, dry, normal turgor, no rashes or lesions noted. Laboratory Results - last 24 hr 02/14/19 02/14/19 02/14/19 00:20 00:20 00:20 WBC 5.8 RBC 1.83 L Hgb 5.8 L* Hct 17.8 L D MCV 97.3 H MCH 31.8 MCHC 32.7 RDW 16.6 H Plt Count 57 L D MPV 8.7 D Absolute Neuts (auto) 4.3 Neutrophils % 73.7 Lymphocytes % 13.4 Monocytes % 9.5 Eosinophils % 2.6 Basophils % 0.8 Nucleated RBC % 0 PT with INR No Result Required. INR > 15.00 H* VBG pH 7.34 POC VBG pCO2 60.5 H POC VBG pO2 45.8 H VBG HCO3 31.9 H VBG O2 Sat (Shruthi) 78.0 VBG Base Excess 6.2 H Sodium Potassium Chloride Carbon Dioxide Anion Gap BUN Creatinine Creat Clearance w eGFR Random Glucose Lactic Acid Calcium Magnesium Total Bilirubin AST ALT Alkaline Phosphatase Creatine Kinase Creatine Kinase Index CK-MB (CK-2) Troponin I Total Protein Albumin Stool Occult Blood Blood Type Antibody Screen Crossmatch 02/14/19 02/14/19 02/14/19 00:20 00:20 01:27 WBC RBC Hgb Hct MCV MCH MCHC RDW Plt Count MPV Absolute Neuts (auto) Neutrophils % Lymphocytes % Monocytes % Eosinophils % Basophils % Nucleated RBC % PT with INR INR VBG pH POC VBG pCO2 POC VBG pO2 VBG HCO3 VBG O2 Sat (Shruthi) VBG Base Excess Sodium 139 Potassium 2.6 L* Chloride 101 Carbon Dioxide 33 H Anion Gap 6 L BUN 38 H Creatinine 3.5 H Creat Clearance w eGFR 16.57 Random Glucose 92 Lactic Acid Calcium 7.9 L Magnesium 2.0 Total Bilirubin 0.5 AST 37 ALT 18 Alkaline Phosphatase 66 Creatine Kinase 200 Creatine Kinase Index 2.3 CK-MB (CK-2) 4.7 H Troponin I 0.21 H Total Protein 5.3 L Albumin 2.5 L Stool Occult Blood Positive Blood Type O POSITIVE Antibody Screen Negative Crossmatch See Detail 02/14/19 02:11 WBC RBC Hgb Hct MCV MCH MCHC RDW Plt Count MPV Absolute Neuts (auto) Neutrophils % Lymphocytes % Monocytes % Eosinophils % Basophils % Nucleated RBC % PT with INR INR VBG pH POC VBG pCO2 POC VBG pO2 VBG HCO3 VBG O2 Sat (Shruthi) VBG Base Excess Sodium Potassium Chloride Carbon Dioxide Anion Gap BUN Creatinine Creat Clearance w eGFR Random Glucose Lactic Acid 1.1 Calcium Magnesium Total Bilirubin AST ALT Alkaline Phosphatase Creatine Kinase Creatine Kinase Index CK-MB (CK-2) Troponin I Total Protein Albumin Stool Occult Blood Blood Type Antibody Screen Crossmatch Active Medications Generic Name Dose Route Start Last Admin Trade Name Freq PRN Reason Stop Dose Admin Allopurinol 150 mg 02/14/19 10:00 Zyloprim - PO DAILY JAYCE Chlorhexidine Gluconate 1 applic 02/14/19 22:00 Hibiclens For Decolonization - TP HS JAYCE Potassium Chloride 10 meq in 100 mls @ 100 mls/hr 02/14/19 01:45 02/14/19 03: 22 Potassium Chloride 10 Meq Premix Ivpb - IVPB 02/14/19 04:44 100 mls/hr Q60M JAYCE Administration Pantoprazole Sodium 80 mg/ 100 mls @ 10 mls/hr 02/14/19 04:00 Sodium Chloride IVPB Q10H JAYCE 8 MG/HR Midodrine 5 mg 02/14/19 10:00 Proamatine - PO BID JAYCE Mupirocin 1 applic 02/14/19 10:00 Bactroban Ointment (For Decolonization) - NS 02/19/19 09:59 BID [facility] Ondansetron HCl 4 mg 02/14/19 03:49 Zofran Injection IVPUSH Q8H PRN NAUSEA Ranolazine 500 mg 02/14/19 10:00 Ranexa - PO BID JAYCE Rosuvastatin Calcium 5 mg 02/14/19 22:00 Crestor - PO HS JAYCE Sevelamer Carbonate 800 mg 02/14/19 06:00 Renvela - PO TID JAYCE Echocardiography 12/31/2018 Normal LV size and function/LVEF 60%, mod dilated RV with mild decreased RV function, mild-mod AUTUMN, mild MR, mod TR with RVSP 31 mmHg ASSESSMENT/PLAN: This is a 88 year old male with history of CAD, CHF, atrial fibrillation, CKD on HD, anemia who presents with lethargy, found to have INR 15 and a hemoglobin of 5.8. #Acute GI Bleed #AMS/metabolic encephalopathy #warfarin toxicity #hypotension #hypokalemia #troponemia #diastolic LV dysfunction #persistent atrial fibrillation #carotid stenosis #copd #CKD on HD #chronic respiratory failure #pleural effusions #Anemia #thrombocytopenia -npo, peripheral access -protonix drip -received 5m vit k in ER; will give another 5mgIV vit K infused over 30-60min; -2 units of FFP ordered, 2UPRBC ordered -repeat cbc, pt/INR -would transfuse platelets after prbc; as they are currently 57 and he is has acute bleed -monitor for overload -stat head ct ; r/o bleed -repeat cxr; as patient has chronic pleural effusions -monitor BP for now as patient has chronic asymptomatic hypotension; -potassium was replaced prior; would not over correct as patient is on dialysis -supp o2 as needed -inhaled bronchodilators prn -trend troponin as likely demand -BB/lucius held to due to hemdynamics; cont statin VTE; hold all anticoagulation GI; on protonix drip Discuss goal of care; as per family they do not want EGD/colonoscopy Dispo: We will continue to follow the patient. Thank you for this consultative opportunity. Visit type - Emergency Visit Emergency Visit: Yes ED Registration Date: 02/14/19 Care time: The patient presented to the Emergency Department on the above date and was hospitalized for further evaluation of their emergent condition. - New Patient This patient is new to me today: Yes Date on this admission: 02/14/19 - Critical Care Critical Care patient: Yes Total Critical Care Time (in minutes): 45 Critical Care Statement: The care of this patient involved high complexity decision making to prevent further life threatening deterioration of the patient 's condition and/or to evaluate & treat vital organ system(s) failure or risk of failure.
--- NOTE | 2019-02-14 03:58 | CONSULT ---
Consultation: REQUESTING PROVIDER: CONSULT REQUEST: We have been asked to medically evaluate this patient for ( specify). HISTORY OF PRESENT ILLNESS: REVIEW OF SYSTEMS: CONSTITUTIONAL: Absent: fever, chills, diaphoresis, generalized weakness, malaise, loss of appetite, weight change HEENT: Absent: rhinorrhea, nasal congestion, throat pain, throat swelling, difficulty swallowing, mouth swelling, ear pain, eye pain, visual changes CARDIOVASCULAR: Absent: chest pain, syncope, palpitations, irregular heart rate, lightheadedness , peripheral edema RESPIRATORY: Absent: cough, shortness of breath, dyspnea with exertion, orthopnea, wheezing, stridor, hemoptysis GASTROINTESTINAL: Absent: abdominal pain, abdominal distension, nausea, vomiting, diarrhea, constipation, melena, hematochezia GENITOURINARY: Absent: dysuria, frequency, urgency, hesitancy, hematuria, flank pain, genital pain MUSCULOSKELETAL: Absent: myalgia, arthralgia, joint swelling, back pain, neck pain SKIN: Absent: rash, itching, pallor HEMATOLOGIC/IMMUNOLOGIC: Absent: easy bleeding, easy bruising, lymphadenopathy, frequent infections ENDOCRINE: Absent: unexplained weight gain, unexplained weight loss, heat intolerance, cold intolerance NEUROLOGIC: Absent: headache, focal weakness or paresthesias, dizziness, unsteady gait, seizure, mental status changes, bladder or bowel incontinence PSYCHIATRIC: Absent: anxiety, depression, suicidal or homicidal ideation, hallucinations. PHYSICAL EXAMINATION Vital Signs - 24 hr 02/13/19 02/14/19 23:41 02:00 Temperature 97.5 F L 99.6 F Pulse Rate 52 L Pulse Rate [ 52 L Apical] Respiratory 32 H 24 H Rate Blood Pressure 95/45 L Blood Pressure 101/51 L [Left Arm] O2 Sat by Pulse 99 100 Oximetry (%) GENERAL: Awake, alert, and fully oriented, in no acute distress. HEAD: Normal with no signs of trauma. EYES: Pupils equal, round and reactive to light, extraocular movements intact, sclera anicteric, conjunctiva clear. No lid lag. EARS, NOSE, THROAT: Ears normal, nares patent, oropharynx clear without exudates. Moist mucous membranes. NECK: Normal range of motion, supple without lymphadenopathy, JVD, or masses. LUNGS: Breath sounds equal, clear to auscultation bilaterally. No wheezes, and no crackles. No accessory muscle use. HEART: Regular rate and rhythm, normal S1 and S2 without murmur, rub or gallop. ABDOMEN: Soft, nontender, not distended, normoactive bowel sounds, no guarding, no rebound, no masses. No hepatomegaly or splenomegaly. MUSCULOSKELETAL: Normal range of motion at all joints. No bony deformities or tenderness. No CVA tenderness. UPPER EXTREMITIES: 2+ pulses, warm, well-perfused. No cyanosis. No clubbing. Cap refill <2 seconds. No peripheral edema. LOWER EXTREMITIES: 2+ pulses, warm, well-perfused. No calf tenderness. No peripheral edema. NEUROLOGICAL: Cranial nerves II-XII intact. Normal speech. Normal gait. PSYCHIATRIC: Cooperative. Good eye contact. Appropriate mood and affect. SKIN: Warm, dry, normal turgor, no rashes or lesions noted. Laboratory Results - last 24 hr 02/14/19 02/14/19 02/14/19 00:20 00:20 00:20 WBC 5.8 RBC 1.83 L Hgb 5.8 L* Hct 17.8 L D MCV 97.3 H MCH 31.8 MCHC 32.7 RDW 16.6 H Plt Count 57 L D MPV 8.7 D Absolute Neuts (auto) 4.3 Neutrophils % 73.7 Lymphocytes % 13.4 Monocytes % 9.5 Eosinophils % 2.6 Basophils % 0.8 Nucleated RBC % 0 PT with INR No Result Required. INR > 15.00 H* VBG pH 7.34 POC VBG pCO2 60.5 H POC VBG pO2 45.8 H VBG HCO3 31.9 H VBG O2 Sat (Shruthi) 78.0 VBG Base Excess 6.2 H Sodium Potassium Chloride Carbon Dioxide Anion Gap BUN Creatinine Creat Clearance w eGFR Random Glucose Lactic Acid Calcium Magnesium Total Bilirubin AST ALT Alkaline Phosphatase Creatine Kinase Creatine Kinase Index CK-MB (CK-2) Troponin I Total Protein Albumin Stool Occult Blood Blood Type Antibody Screen Crossmatch 02/14/19 02/14/19 02/14/19 00:20 00:20 01:27 WBC RBC Hgb Hct MCV MCH MCHC RDW Plt Count MPV Absolute Neuts (auto) Neutrophils % Lymphocytes % Monocytes % Eosinophils % Basophils % Nucleated RBC % PT with INR INR VBG pH POC VBG pCO2 POC VBG pO2 VBG HCO3 VBG O2 Sat (Shruthi) VBG Base Excess Sodium 139 Potassium 2.6 L* Chloride 101 Carbon Dioxide 33 H Anion Gap 6 L BUN 38 H Creatinine 3.5 H Creat Clearance w eGFR 16.57 Random Glucose 92 Lactic Acid Calcium 7.9 L Magnesium 2.0 Total Bilirubin 0.5 AST 37 ALT 18 Alkaline Phosphatase 66 Creatine Kinase 200 Creatine Kinase Index 2.3 CK-MB (CK-2) 4.7 H Troponin I 0.21 H Total Protein 5.3 L Albumin 2.5 L Stool Occult Blood Positive Blood Type O POSITIVE Antibody Screen Negative Crossmatch See Detail 02/14/19 02:11 WBC RBC Hgb Hct MCV MCH MCHC RDW Plt Count MPV Absolute Neuts (auto) Neutrophils % Lymphocytes % Monocytes % Eosinophils % Basophils % Nucleated RBC % PT with INR INR VBG pH POC VBG pCO2 POC VBG pO2 VBG HCO3 VBG O2 Sat (Shruthi) VBG Base Excess Sodium Potassium Chloride Carbon Dioxide Anion Gap BUN Creatinine Creat Clearance w eGFR Random Glucose Lactic Acid 1.1 Calcium Magnesium Total Bilirubin AST ALT Alkaline Phosphatase Creatine Kinase Creatine Kinase Index CK-MB (CK-2) Troponin I Total Protein Albumin Stool Occult Blood Blood Type Antibody Screen Crossmatch Active Medications Generic Name Dose Route Start Last Admin Trade Name Freq PRN Reason Stop Dose Admin Allopurinol 150 mg 02/14/19 10:00 Zyloprim - PO DAILY JAYCE Chlorhexidine Gluconate 1 applic 02/14/19 22:00 Hibiclens For Decolonization - TP HS [facility] Chlorhexidine Gluconate 1 applic 02/14/19 22:00 Hibiclens For Decolonization - TP HS JAYCE Potassium Chloride 10 meq in 100 mls @ 100 mls/hr 02/14/19 01:45 02/14/19 03: 22 Potassium Chloride 10 Meq Premix Ivpb - IVPB 02/14/19 04:44 100 mls/hr Q60M JAYCE Administration Pantoprazole Sodium 80 mg/ 100 mls @ 10 mls/hr 02/14/19 04:00 Sodium Chloride IVPB Q10H JAYCE 8 MG/HR Midodrine 5 mg 02/14/19 10:00 Proamatine - PO BID JAYCE Mupirocin 1 applic 02/14/19 10:00 Bactroban Ointment (For Decolonization) - NS 02/19/19 09:59 BID JAYCE Mupirocin 1 applic 02/14/19 10:00 Bactroban Ointment (For Decolonization) - NS 02/19/19 09:59 BID JAYCE Ondansetron HCl 4 mg 02/14/19 03:49 Zofran Injection IVPUSH Q8H PRN NAUSEA Ranolazine 500 mg 02/14/19 10:00 Ranexa - PO BID JAYCE Rosuvastatin Calcium 5 mg 02/14/19 22:00 Crestor - PO HS JAYCE Sevelamer Carbonate 800 mg 02/14/19 06:00 Renvela - PO TID JAYCE ASSESSMENT/PLAN: Dispo: We will continue to follow the patient. Thank you for this consultative opportunity.
[2019-02-14] MEDS ORDERED: PANTOPRAZOLE SODIUM 80 MG/200 ML BAG IVPB ONE (06:25)
[2019-02-14] MEDS: PANTOPRAZOLE SODIUM 80 MG in SODIUM CHLORIDE 100 ML IVPB SCH ×3 (06:30→17:51)
[2019-02-14] MEDS ORDERED: KCL 10 MEQ IVPB 30 MEQ/300 ML INFUS.BAG IVPB ONE (08:26)
[2019-02-14 08:28] LABS: BASO % 0.8 % (0-2.0); EOS % 2.6 % (0-4.5); HEMATOCRIT 19.6 % (35.4-49); LYMPH % 15.2 % (8-40); MCH 31.5 pg (25.7-33.7); MCHC 32.8 g/dl (32.0-35.9); MEAN PLT VOLUME 8.9 fl (7.5-11.1); MONO % 11.1 % (3.8-10.2); NEUT % 70.3 % (42.8-82.8); PLATELET COUNT 61 K/MM3 (134-434); RBC 2.04 M/mm3 (4.00-5.60); WHITE BLOOD COUNT 4.9 K/mm3 (4.0-10.0)
[2019-02-14 08:40] LABS: INR 3.18 (0.83-1.09)
[2019-02-14 08:43] LABS: ACTIVATED PTT 49.4 SECONDS (25.2-36.5)
[2019-02-14] MEDS ORDERED: VANCOMYCIN 1 GRAM (PRE-DOCKED) 1,000 MG/250 ML BAG IVPB ONE ×3 (09:16→13:04)
[2019-02-14] MEDS ORDERED: PIPERACILLIN/TAZOB 2.25 GM 2.25 GM in DEXTROSE 5%-WATER - 50 ML IVPB ONE (09:17)
[2019-02-14 09:24] LABS: ANION GAP 6 MMOL/L (8-16); BLOOD UREA NITROGEN 41 mg/dL (7-18); CHLORIDE 102 mmol/L (98-107); CO2 31 mmol/L (21-32); CREATININE 3.8 mg/dL (0.55-1.3); GLUCOSE,RANDOM 92 mg/dL (74-106); MAGNESIUM 2.1 mg/dL (1.8-2.4); N-TERMINAL BNP 26654.2 pg/ml (5-450); PHOSPHOROUS 3.1 mg/dL (2.5-4.9); SODIUM 138 mmol/L (136-145)
[2019-02-14] MEDS ORDERED: ALLOPURINOL 100 MG TABLET (FP) ONE (09:42)
[2019-02-14] MEDS ORDERED: PIPERACILLIN/TAZOB 2.25 GM 2.25 GM/50 ML BAG IVPB ONE (09:43)
[2019-02-14] MEDS ORDERED: MUPIROCIN 2% TOPICAL OINTMENT FOR DECOLONIZATION NS SCH (10:00)
[2019-02-14 10:04] LABS: POTASSIUM 2.7 mmol/L (3.5-5.1)
--- NOTE | 2019-02-14 10:10 | PN ---
Progress Note (short form) - Note Progress Note: ID consult dictated imp/reccd 88 yo man with afib on coumadi, CAD s/p cabg, recently started HD via Permacath s/p HD yesterday inr was 9 and coumadin was held developed sob and sent to ED with lethargy and SOB found to be anemic hgb 5.8 with guaic positive stool INR greater then 15 received PRBC and FFP now alert and NAD he has melena this am GI bleed coagulopathy due to coumadin doubt infection blood cultures have been sent and he was given vanco/zosyn- will follow ESRD/HD GI consult transfusio f/u cultures vancomycin level in am observe off antibiotics DNR/DNI Problem List - Problems (1) GI bleed Code(s): K92.2 - GASTROINTESTINAL HEMORRHAGE, UNSPECIFIED (2) Warfarin toxicity Code(s): T45.511A - POISONING BY ANTICOAGULANTS, ACCIDENTAL, INIT Qualifiers: Encounter type: initial encounter Injury intent: accidental or unintentional Qualified Code(s): T45.511A - Poisoning by anticoagulants, accidental (unintentional), initial encounter (3) ESRD (end stage renal disease) on dialysis Code(s): N18.6 - END STAGE RENAL DISEASE; Z99.2 - DEPENDENCE ON RENAL DIALYSIS
--- NOTE | 2019-02-14 10:26 | ECHO ---
Name: MALIA ALANIS Exam:Adult Echocardiogram Study Date: 02/14/2019 09:29 AM Age: 88 yrs Reason For Study: +TROPONIN R/O SEGMENTAL WALL MOTION ABNORMALITIES Height: 70 in Weight: 150 lb BSA: 1.8 m2 MMode/2D Measurements & Calculations IVSd: 0.98 cm Ao root diam: 3.4 cm LVIDd: 5.3 cm LA dimension: 4.1 cm LVIDs: 4.1 cm LVPWd: 0.89 cm EDV(Teich): 132.6 ml LVOT diam: 2.0 cm ESV(Teich): 74.5 ml Doppler Measurements & Calculations MV E max skip: 115.2 cm/sec Ao V2 max: 185.2 cm/sec MV A max skip: 62.0 cm/sec Ao max P.7 mmHg MV E/A: 1.9 Ao V2 mean: 115.0 cm/sec MV dec time: 0.15 sec Ao mean P.0 mmHg Ao V2 VTI: 36.8 cm AIMEE(I,D): 1.3 cm2 AIMEE(V,D): 1.2 cm2 LV V1 max P.9 mmHg MR max skip: 382.2 cm/sec LV V1 mean P.89 mmHg MR max P.6 mmHg LV V1 max: 68.6 cm/sec LV V1 mean: 44.0 cm/sec LV V1 VTI: 14.6 cm SV(LVOT): 47.8 ml TR max skip: 288.5 cm/sec TR max P.7 mmHg Med Peak E' Skip: 5.8 cm/sec Med E/e': 19.8 Lat Peak E' Skip: 11.5 cm/sec Lat E/e': 10.0 Left Ventricle Ejection Fraction = 50%. Flattened septum is consistent with RV pressure overload. Right Ventricle The right ventricle is moderately dilated. The right ventricular systolic function is moderate to sev erely reduced. Atria The left atrium is mildly dilated. The right atrium is mildly dilated. Mitral Valve There is moderate mitral annular calcification. There is no mitral valve stenosis. There is mild mitr al regurgitation. Tricuspid Valve The tricuspid valve is not well visualized, but is grossly normal. There is severe tricuspid regurgit ation. Right ventricular systolic pressure is elevated at 40-50mmHg. Aortic Valve The aortic valve opens well. No hemodynamically significant valvular aortic stenosis. No aortic regur gitation is present. Pulmonic Valve The pulmonic valve is not well seen, but is grossly normal. There is no pulmonic valvular stenosis. Great Vessels The aortic root is normal size. Pericardium/Pleura There is no pericardial effusion. Interpretation Summary Flattened septum is consistent with RV pressure overload. Ejection Fraction = 50%. The right ventricle is moderately dilated. The right ventricular systolic function is moderate to severely reduced. The left atrium is mildly dilated. The right atrium is mildly dilated. There is moderate mitral annular calcification. There is mild mitral regurgitation. There is severe tricuspid regurgitation. Right ventricular systolic pressure is elevated at 40-50mmHg. There is no pericardial effusion. MD Ramirez *Ryder 02/14/2019 10:25 AM
--- NOTE | 2019-02-14 10:39 | EKG ---
Test Reason : Blood Pressure : / mmHG Vent. Rate : 055 BPM Atrial Rate : 055 BPM P-R Int : 000 ms QRS Dur : 118 ms QT Int : 396 ms P-R-T Axes : 000 095 238 degrees QTc Int : 378 ms JUNCTIONAL RHYTHM WITH OCCASIONAL PREMATURE VENTRICULAR COMPLEXES RIGHTWARD AXIS CANNOT RULE OUT ANTERIOR INFARCT (CITED ON OR BEFORE 03-FEB-2019) ABNORMAL ECG WHEN COMPARED WITH ECG OF 03-FEB-2019 19:43, PREMATURE VENTRICULAR COMPLEXES ARE NOW PRESENT Confirmed by SHERWIN FISHMAN MD ([id number]) on 02/14/2019 10:38:45 AM Referred By: Confirmed By:SHERWIN FISHMAN MD
[2019-02-14] MEDS: RANOLAZINE E.R. 500 MG TABLET (FP) PO SCH ×2 (10:45→21:42)
[2019-02-14] MEDS: MIDODRINE HCL 5 MG TABLET PO SCH ×2 (10:45→17:52)
[2019-02-14] MEDS: ALLOPURINOL 300 MG TABLET (FP) PO SCH (10:45)
[2019-02-14] MEDS: SEVELAMER CARBONATE 800 MG TAB (FP) PO SCH ×3 (10:46→17:41)
--- NOTE | 2019-02-14 10:55 | CONS ---
DATE OF CONSULTATION: 02/14/2019 REQUESTING PHYSICIAN: Hospitalist service. HISTORY OF PRESENT ILLNESS: This is an 88-year-old man with a past medical history of hypertension, coronary artery disease, atrial fibrillation on Coumadin, who was recently started on dialysis about 2 months ago and presently in a rehab facility. He is dialyzed via permacath. Apparently, yesterday at dialysis, he had a normal dialysis with no event. Afterwards, he complained of acute shortness of breath and last night was sent to the emergency room. He has chronic low blood pressure and has been recently started on midodrine. Patient was found yesterday to have an INR greater than 9 and his Coumadin was held. He was found in the emergency room to have a hemoglobin of 5.8, platelets of 57,000, and INR of over 15. He was given blood and FFP. He had cultures sent, as well. He received a dose of vancomycin and Zosyn. This morning, he is awake, he is alert. He denies any abdominal pain or chest pain, and he is having melena. He is on his second unit of blood and he received FFP. His repeat INR is now 3. There are no fevers or chills. PAST MEDICAL HISTORY: Notable for coronary artery disease, congestive heart failure, atrial fibrillation, carotid stenosis. He has a history of C. difficile. He has a history of perforated colon, end-stage renal disease, dialysis, hypertension, COPD, anemia. SURGICAL HISTORY: Notable for he had a perforated colon after he had a left hip replacement and he required a hemicolectomy. He has a history of appendectomy. He has had a CABG in the past. He has also had an ORIF of his right forearm, a left hip replacement 10 years ago, and a right hip in 2011. The hemicolectomy was in 2011 after the colonic perforation. SOCIAL HISTORY: He was living at home, but after he started dialysis, he has been staying at a rehab facility. He stopped smoking 35 years ago. There is no history of substance abuse. ALLERGIES: He has no known drug allergies. REVIEW OF SYSTEMS: As per HPI. He makes very little urine. He has no abdominal pain or chest pain. MEDICATIONS: Include Renvela, Crestor, Ranexa, midodrine, vitamin D, Zyloprim, and he is on Coumadin, which is being held. PHYSICAL EXAMINATION General: He is awake and alert. Vital signs: Temperature is 97.8, heart rate is 64, blood pressure is 90/41, respiratory rate 20, he is saturating 99% on 4 L. HEENT: He is normocephalic. His eyes are anicteric. He has very dry oral mucosa. He has a little bit of blood in his mouth, but he denies any vomiting. Neck: Supple. Lungs: Have diminished breath sounds at the bases. Heart: Regular rate and rhythm. He has a well-healed sternal incision. Abdomen: Soft. He has good bowel sounds. It is nontender. Extremities: Without edema. DIAGNOSTIC DATA: White count 4.9, hemoglobin this morning was 5.8, repeat after transfusion is pending, platelets are 61,000. INR was 15; on repeat is 3. BUN 41, creatinine 3.8. LFTs from last night were normal. Troponin is 0.19. Stool occult blood is positive. Blood cultures are pending. Chest x-ray, there is bilateral pulmonary and pleural changes have diminished. He has sternal sutures and clips. He has a right IJ. He has a large heart. SUMMARY: This is an elderly man admitted with an international normalized ratio of over 15 with anemia and a gastrointestinal bleed. He is having sharad melena at this time. He had a head CT done in the emergency room that was no acute disease. He is being transfused. His coagulopathy is being corrected. GI consult has been requested. He received a dose of vancomycin and Zosyn to cover for possible sepsis. Blood cultures are pending. Would follow his vancomycin level and blood cultures. He does have a permacath which makes him a risk for catheter-related infection. I think his chest x-ray findings were explained by his volume status, and I do not think he has pneumonia at this time. Withhold further antibiotics and have him evaluated by GI. I spoke with Dr. Matos and this was his primary attending as well as with Dr. Shaw regarding his care. PATRICK ROBLEDO M.D. [id number]
--- NOTE | 2019-02-14 11:03 | CON.CARD ---
Consult Consult Specialty:: Cardiology Referred by:: Ryan Matos MD Reason for Consultation:: Supratherapeutic INR, acute blood loss anemia - History of Present Illness Chief Complaint: Hypotension, dyspnea History of Present Illness: Patient is an 88 year old male with underlying history of CAD s/p CABG (JHAVERI to mLAD, SVG to RPDA), s/p PCI/LUIS EDUARDO to LAD, persistent AF on Coumadin, diastolic dysfunction with history of acute on chronic heart failure, HTN, hypercholesterolemia, carotid stenosis, ESRD on HF via PC who presents with worsening shortness of breath, lethargy, hypotension in context of supratherapeutic INR, acute blood loss anemia, guaiac positive stools and melena. Patient received 2 units PRBC, 2 units FFP. Recent hospitalization 2018 includes: b/l pleural effusion that required rt chest tube; cardiogenic shock placed on dobutamine/levophed required, currently maintained on midodrine. Renal failure requiring HD, now with permacath. Dialysis TTS. - History Source History Provided By: Medical Record Limitations to Obtaining History: Clinical Condition - Past Medical History Cardio/Vascular: Yes: AFIB, CAD, CHF, HTN, Hyperlipdemia Renal/: Yes: Renal Inusuff Musculoskeletal: Yes: Other (spinal stenosis) - Past Surgical History Past Surgical History: Yes: CABG, Colectomy, Hernia Repair, Joint Replacement (b /l hip replacement ORIF right arm), Stent - Alcohol/Substance Use Hx Alcohol Use: No History of Substance Use: reports: None - Smoking History Smoking history: Never smoked Have you smoked in the past 12 months: No Aproximately how many cigarettes per day: 0 If you are a former smoker, when did you quit?: 35 years ago - Social History ADL: Independent History of Recent Travel: No Home Medications - Allergies Allergies/Adverse Reactions: Allergies Allergy/AdvReac Type Severity Reaction Status Date / Time No Known Allergies Allergy Verified 02/03/19 19:39 - Home Medications Home Medications: Ambulatory Orders Ranolazine [Ranexa -] 500 mg PO BID 03/22/12 Cholecalciferol (Vitamin D3) [Vitamin D -] 1,000 unit PO DAILY 03/13/18 Vit A/Vit C/Vit E/Zinc/Copper [Preservision Areds Tablet] 1 each PO DAILY 05/30/ 18 Allopurinol [Zyloprim -] 150 mg PO DAILY 12/30/18 Rosuvastatin [Crestor -] 5 mg PO HS 12/30/18 Polyvinyl Alcohol [Artificial Tears] 1 drop OU Q8H PRN drops 01/29/19 Sevelamer Carbonate [Renvela -] 800 mg PO TIDCM tab 01/29/19 Midodrine HCl [Proamatine -] 5 mg PO BID-MID tablet 02/03/19 Family Disease History - Family Disease History Family Disease History: Heart Disease: Mother, Brother, Other: Father Review of Systems - Review of Systems Respiratory: reports: SOB Vital Signs: Vital Signs Temperature 97.8 F 02/14/19 06:35 Pulse Rate 54 L 02/14/19 06:35 Respiratory Rate 20 02/14/19 06:35 Blood Pressure 90/41 L 02/14/19 06:35 O2 Sat by Pulse Oximetry (%) 99 02/14/19 06:35 Constitutional: Yes: No Distress, Calm, Thin Neck: Yes: Supple Respiratory: Yes: Regular, Diminished, On Nasal O2 Gastrointestinal: Yes: Soft, Hypoactive Bowel Sounds Cardiovascular: Yes: Pulse Irregular JVD: No Carotid Bruit: No Heart Sounds: Yes: S1, S2 Murmur: Yes: Systolic Murmur, Grade 1 Edema: No - Other Data Labs, Other Data: CBC, BMP 02/14/19 08:13 02/14/19 08:13 INR, PTT INR 3.18 (0.83-1.09) H 02/14/19 08:13 Troponin, BNP 02/14/19 02/14/19 00:20 08:13 Troponin I 0.21 H 0.19 H B-Natriuretic Peptide 32733.2 H Troponin, BNP 02/14/19 02/14/19 00:20 08:13 Troponin I 0.21 H 0.19 H B-Natriuretic Peptide 35698.2 H Imaging - Results Chest X-ray: Report Reviewed ( pulmonary vascular congestion, bilateral effusions) Cat Scan: Report Reviewed (02/14/2019 Bilateral pleural effusions, cholelithiasis, ascites no RP hematoma No acute stroke or bleed) Problem List - Problems (1) Cor pulmonale (chronic) Code(s): I27.81 - COR PULMONALE (CHRONIC) (2) ESRD (end stage renal disease) on dialysis Code(s): N18.6 - END STAGE RENAL DISEASE; Z99.2 - DEPENDENCE ON RENAL DIALYSIS (3) GI bleed Code(s): K92.2 - GASTROINTESTINAL HEMORRHAGE, UNSPECIFIED Qualifiers: GI bleed type/associated pathology: melena Qualified Code(s): K92.1 - Melena (4) Hx of CABG Code(s): Z95.1 - PRESENCE OF AORTOCORONARY BYPASS GRAFT (5) Warfarin toxicity Code(s): T45.511A - POISONING BY ANTICOAGULANTS, ACCIDENTAL, INIT Qualifiers: Encounter type: initial encounter Injury intent: accidental or unintentional Qualified Code(s): T45.511A - Poisoning by anticoagulants, accidental (unintentional), initial encounter (6) Anemia Code(s): D64.9 - ANEMIA, UNSPECIFIED Qualifiers: Anemia type: unspecified type Qualified Code(s): D64.9 - Anemia, unspecified (7) Elevated INR Code(s): R79.1 - ABNORMAL COAGULATION PROFILE (8) Hypotension Code(s): I95.9 - HYPOTENSION, UNSPECIFIED Qualifiers: Hypotension type: other hypotension type Qualified Code(s): I95.89 - Other hypotension (9) Pulmonary hypertension Code(s): I27.2 - OTHER SECONDARY PULMONARY HYPERTENSION * DO NOT USE * (10) Status post insertion of drug-eluting stent into left anterior descending ( LAD) artery Code(s): Z95.5 - PRESENCE OF CORONARY ANGIOPLASTY IMPLANT AND GRAFT (11) Subendocardial ischemia Code(s): I24.8 - OTHER FORMS OF ACUTE ISCHEMIC HEART DISEASE (12) Hyperlipidemia Code(s): E78.5 - HYPERLIPIDEMIA, UNSPECIFIED Qualifiers: Hyperlipidemia type: pure hypercholesterolemia Qualified Code(s): E78.00 - Pure hypercholesterolemia, unspecified; E78.0 - Pure hypercholesterolemia Assessment/Plan 02/14/2019 Echo: Normal LV size and low normal LV fxn LVEF 50%, mod dilated with mod-severe decrease RV fxn, D shaped septum from RV pressure overload, mild AUTUMN, mild MR, severe TR, RVSP 40-50 mmHg, no pericardial effusion 12/31/2018 Echo: Normal LV size and fxn LVEF 60%, mod dilated RV with mild decreased RV fxn, mild-mod AUTUMN, mild MR, mod TR RVSP 31 mmHg 1. Acute Hypoxic Respiratory Failure 2. Acute blood loss anemia referable to GI bleed in context of supratherapeutic INR 3. Chronic diastolic heart failure with pleural effusion post left pigtail, cor pulmonale 4. CAD post CABG/PCI (stent) evidence of demand ischemia angina pectoris 5. Persistent atrial fibrillation [id number] score of 5 on Coumadin therapy with supratherapeutic INR 6. Toxic metabolic encephelopathy 7. Hypercholesterolemia 8. MR mild to moderate in severity 9. TR severe in severity 10. Carotid stenosis, moderate in severity 11. COPD 12. ESRD on HD via PC with hypokalemia 13. Anemia and thrombocytopenia PLAN: 1. Transfuse to maintain Hgb>8.0, anticoagulation reversed, anticoagulation to be held pending hemostasis, trend trops to document peak 2. GI evaluation, IV Protonix 3. Continue Crestor 5 mg QHS, O2 to keep SpO2 >90%, midodrine 5 bid with uptitration as hemodynamics 4. HD via PC per renal service, replete K 5. Thank you for consultative opportunity
[2019-02-14 11:04] LABS: HEMOGLOBIN 6.4 GM/dL (11.7-16.9)
--- NOTE | 2019-02-14 11:05 | PN ---
Progress Note (short form) - Note Progress Note: Dr. Shaw to document today. Hb 5.8 INR 15 now corrected. Gross melena in diaper. placed him on DNR?DNI; If he regains medical decision making this will have to be readdressed.
--- NOTE | 2019-02-14 11:19 | PN ---
Teaching Attending Note Name of Resident: Gaurav Thonre ATTENDING PHYSICIAN STATEMENT I saw and evaluated the patient. I reviewed the resident's note and discussed the case with the resident. I agree with the resident's findings and plan as documented. SUBJECTIVE: Pt seen and examined in the ER. Received 2 units PRBC, 2 units FFP. Does endorse some shortness of breath. Lethargic but arousable. OBJECTIVE: Vital Signs Period Temp Pulse Resp BP Sys/Ascencio Pulse Ox Last 24 Hr 97.5 F-99.6 F 51-60 16-32 90-101/41-51 99-100 Intake & Output 02/11/19 02/12/19 02/13/19 02/14/19 23:59 23:59 23:59 23:59 Weight 68.039 kg Gen: lethargic, pale, cachectic Heart: irregular Lung: decreased breath sounds at the bases Abd: soft, nontender Ext: no edema CBC, BMP 02/14/19 08:13 02/14/19 08:13 CXR: pulmonary vascular congestion, bilateral effusions Active Medications Allopurinol (Zyloprim -) 150 mg PO DAILY [facility] Last Admin: 02/14/19 10:45 Dose: 150 mg Chlorhexidine Gluconate (Hibiclens For Decolonization -) 1 applic TP HS [facility] Pantoprazole Sodium 80 mg/ (Sodium Chloride) 100 mls @ 10 mls/hr IVPB Q10H [facility] Last Admin: 02/14/19 06:30 Dose: 10 mls/hr Midodrine (Proamatine -) 5 mg PO BID-MID [facility] Last Admin: 02/14/19 10:45 Dose: 5 mg Mupirocin (Bactroban Ointment (For Decolonization) -) 1 applic NS BID [facility] Stop: 02/19/19 09:59 Ondansetron HCl (Zofran Injection) 4 mg IVPUSH Q8H PRN PRN Reason: NAUSEA Ranolazine (Ranexa -) 500 mg PO BID [facility] Last Admin: 02/14/19 10:45 Dose: 500 mg Rosuvastatin Calcium (Crestor -) 5 mg PO HS [facility] Sevelamer Carbonate (Renvela -) 800 mg PO TIDCM [facility] Last Admin: 02/14/19 10:46 Dose: 800 mg ASSESSMENT AND PLAN: Acute Hypoxic Respiratory Failure r/o GI vs Retroperitoneal Bleed Anemia/Thrombocytopenia Acute on Chronic Diastolic Heart Failure Atrial Fibrillation Supratherapeutic INR CAD s/p CABG Mitral Regurgitation COPD ESRD on HD - monitor H/H, coags - transfuse as needed - holding anticoagulation - protonix - CT A/P - GI eval - HD per renal - O2 to keep SpO2 >90% - hold antihypertensives - aspiration precautions - rate control - ICU monitoring critical care time spent in reviewing chart, evaluating patient and formulating plan 35 min
--- NOTE | 2019-02-14 11:35 | PN ---
Physical Exam: SUBJECTIVE: Patient seen and examined at bedside. Patient lethargic but easily rousable to voice. Patient has no new complaints. OBJECTIVE: Vital Signs Period Temp Pulse Resp BP Sys/Ascencio Pulse Ox Last 24 Hr 97.5 F-99.6 F 51-60 16-32 90-101/41-51 99-100 GENERAL: The patient is lethargic, easily rousable to voice, able to follow commands. Answers questions intermittently, but correctly. HEAD: Normal with no signs of trauma. EYES: PERRL, extraocular movements intact, sclera anicteric, conjunctival pallor noted. No ptosis. ENT: Ears normal, nares patent, Dried blood noted around the oropharynx . NECK: Trachea midline, full range of motion, supple. LUNGS: Breath sounds equal, Decreased breath sounds at the bases. HEART: Regular rate and rhythm, S1, S2. Systolic ejection murmur heard at the LUSB ABDOMEN: Soft, nontender, mildly distended, normoactive bowel sounds, no guarding, no rebound, no hepatosplenomegaly, no masses. EXTREMITIES: 2+ pulses, warm, well-perfused, no edema. NEUROLOGICAL: Cranial nerves II through X grossly intact. Normal speech, gait not observed. SKIN: Warm, dry, normal turgor. Ecchymoses noted over both arms. Laboratory Results - last 24 hr 02/14/19 02/14/19 02/14/19 00:20 00:20 00:20 WBC 5.8 RBC 1.83 L Hgb 5.8 L* Hct 17.8 L D MCV 97.3 H MCH 31.8 MCHC 32.7 RDW 16.6 H Plt Count 57 L D MPV 8.7 D Absolute Neuts (auto) 4.3 Neutrophils % 73.7 Lymphocytes % 13.4 Monocytes % 9.5 Eosinophils % 2.6 Basophils % 0.8 Nucleated RBC % 0 PT with INR No Result Required. INR > 15.00 H* PTT (Actin FS) VBG pH 7.34 POC VBG pCO2 60.5 H POC VBG pO2 45.8 H VBG HCO3 31.9 H VBG O2 Sat (Shruthi) 78.0 VBG Base Excess 6.2 H Sodium Potassium Chloride Carbon Dioxide Anion Gap BUN Creatinine Creat Clearance w eGFR Random Glucose Lactic Acid Calcium Phosphorus Magnesium Total Bilirubin AST ALT Alkaline Phosphatase Creatine Kinase Creatine Kinase Index CK-MB (CK-2) Troponin I B-Natriuretic Peptide Total Protein Albumin Stool Occult Blood Blood Type Antibody Screen Crossmatch 02/14/19 02/14/19 02/14/19 00:20 00:20 01:27 WBC RBC Hgb Hct MCV MCH MCHC RDW Plt Count MPV Absolute Neuts (auto) Neutrophils % Lymphocytes % Monocytes % Eosinophils % Basophils % Nucleated RBC % PT with INR INR PTT (Actin FS) VBG pH POC VBG pCO2 POC VBG pO2 VBG HCO3 VBG O2 Sat (Shruthi) VBG Base Excess Sodium 139 Potassium 2.6 L* Chloride 101 Carbon Dioxide 33 H Anion Gap 6 L BUN 38 H Creatinine 3.5 H Creat Clearance w eGFR 16.57 Random Glucose 92 Lactic Acid Calcium 7.9 L Phosphorus Magnesium 2.0 Total Bilirubin 0.5 AST 37 ALT 18 Alkaline Phosphatase 66 Creatine Kinase 200 Creatine Kinase Index 2.3 CK-MB (CK-2) 4.7 H Troponin I 0.21 H B-Natriuretic Peptide Total Protein 5.3 L Albumin 2.5 L Stool Occult Blood Positive Blood Type O POSITIVE Antibody Screen Negative Crossmatch See Detail 02/14/19 02/14/19 02/14/19 02:11 08:13 08:13 WBC 4.9 RBC 2.04 L Hgb 6.4 L* Hct 19.6 L MCV 96.0 MCH 31.5 MCHC 32.8 RDW 17.0 H Plt Count 61 L MPV 8.9 Absolute Neuts (auto) 3.4 Neutrophils % 70.3 Lymphocytes % 15.2 Monocytes % 11.1 H Eosinophils % 2.6 Basophils % 0.8 Nucleated RBC % 0 PT with INR INR PTT (Actin FS) VBG pH POC VBG pCO2 POC VBG pO2 VBG HCO3 VBG O2 Sat (Shruthi) VBG Base Excess Sodium 138 Potassium 2.7 L* Chloride 102 Carbon Dioxide 31 Anion Gap 6 L BUN 41 H Creatinine 3.8 H Creat Clearance w eGFR 15.07 Random Glucose 92 Lactic Acid 1.1 Calcium 8.0 L Phosphorus 3.1 Magnesium 2.1 Total Bilirubin AST ALT Alkaline Phosphatase Creatine Kinase 178 Creatine Kinase Index 2.5 CK-MB (CK-2) 4.6 H Troponin I 0.19 H B-Natriuretic Peptide 28600.2 H Total Protein Albumin Stool Occult Blood Blood Type Antibody Screen Crossmatch 02/14/19 08:13 WBC RBC Hgb Hct MCV MCH MCHC RDW Plt Count MPV Absolute Neuts (auto) Neutrophils % Lymphocytes % Monocytes % Eosinophils % Basophils % Nucleated RBC % PT with INR 38.00 H INR 3.18 H PTT (Actin FS) 49.4 H VBG pH POC VBG pCO2 POC VBG pO2 VBG HCO3 VBG O2 Sat (Shruthi) VBG Base Excess Sodium Potassium Chloride Carbon Dioxide Anion Gap BUN Creatinine Creat Clearance w eGFR Random Glucose Lactic Acid Calcium Phosphorus Magnesium Total Bilirubin AST ALT Alkaline Phosphatase Creatine Kinase Creatine Kinase Index CK-MB (CK-2) Troponin I B-Natriuretic Peptide Total Protein Albumin Stool Occult Blood Blood Type Antibody Screen Crossmatch Active Medications Generic Name Dose Route Start Last Admin Trade Name Freq PRN Reason Stop Dose Admin Allopurinol 150 mg 02/14/19 10:00 02/14/19 10:45 Zyloprim - PO 150 mg DAILY JAYCE Administration Chlorhexidine Gluconate 1 applic 02/14/19 22:00 Hibiclens For Decolonization - TP HS JAYCE Pantoprazole Sodium 80 mg/ 100 mls @ 10 mls/hr 02/14/19 04:00 02/14/19 06:30 Sodium Chloride IVPB 10 mls/hr Q10H JAYCE Administration 8 MG/HR Midodrine 5 mg 02/14/19 10:00 02/14/19 10:45 Proamatine - PO 5 mg BID-MID JAYCE Administration Mupirocin 1 applic 02/14/19 10:00 Bactroban Ointment (For Decolonization) - NS 02/19/19 09:59 BID JAYCE Ondansetron HCl 4 mg 02/14/19 03:49 Zofran Injection IVPUSH Q8H PRN NAUSEA Ranolazine 500 mg 02/14/19 10:00 02/14/19 10:45 Ranexa - PO 500 mg BID JAYCE Administration Rosuvastatin Calcium 5 mg 02/14/19 22:00 Crestor - PO HS JAYCE Sevelamer Carbonate 800 mg 02/14/19 08:00 02/14/19 10:46 Renvela - PO 800 mg TIDCM JAYCE Administration ASSESSMENT/PLAN: The patient is a 88 year old male w/ PMH CAD s/p CABG & PCI/LUIS EDUARDO to LAD, AF on Coumadin, dCHF , HTN, HLD, CKD on HD who was sent from [facility] rehab due to lethargy, poor oral intake, found to be hypotensive with INR of 15 and sharad melena. Neuro: -patient lethargic, but easily rousable and answers questions; close to basline per family Cardio: -Patient tachycardic and hypotensive on arrival -INR >15 -improved after total 2U FFP & 10mg Vit K; RPT INR 3 -BP improved s/p 3units PRBC -4th units ordered, but held due to Hb 7.2 and concerns for fluid overload in HD patient w/ CHF -Monitor fluid status closely for signs of overload -RPT CBC at midnight to monitor for continued bleeding. Pulmonary: -h/o CHF; required volume during resuscitation -saturating well on 5L NC; not on O2 at home -maintain saturation >90% GI: -GI consulted -family declines EGD/colonoscopy -transfuse to maintain Hb >7 -reverse coumadin FEN: -no fluids indicated -repleted potassium; recheck @midnight -NPO for GIB Prophy: -SCDs -holding AC while actively bleeding. Dispo: -Admit ICU -Patient DNR/DNI Visit type - Emergency Visit Emergency Visit: Yes ED Registration Date: 02/14/19 Care time: The patient presented to the Emergency Department on the above date and was hospitalized for further evaluation of their emergent condition. - New Patient This patient is new to me today: Yes Date on this admission: 02/14/19 - Critical Care Critical Care patient: Yes Total Critical Care Time (in minutes): 40 Critical Care Statement: The care of this patient involved high complexity decision making to prevent further life threatening deterioration of the patient 's condition and/or to evaluate & treat vital organ system(s) failure or risk of failure. - Discharge Referral Referred to [facility] Med P.C.: No
[2019-02-14 13:52] LABS: HEMATOCRIT 21.9 % (35.4-49); HEMOGLOBIN 7.2 GM/dL (11.7-16.9); MCH 31.1 pg (25.7-33.7); MCHC 32.6 g/dl (32.0-35.9); MEAN CELL VOLUME 95.2 fl (80-96); MEAN PLT VOLUME 8.4 fl (7.5-11.1); PLATELET COUNT 64 K/MM3 (134-434); RDW 16.8 % (11.9-15.9); WHITE BLOOD COUNT 5.1 K/mm3 (4.0-10.0)
[2019-02-14 14:21] LABS: ALBUMIN 2.7 g/dl (3.4-5.0); ALK PHOS 67 U/L (45-117); ANION GAP 7 MMOL/L (8-16); BILIRUBIN,TOTAL 0.8 mg/dL (0.2-1); BLOOD UREA NITROGEN 44 mg/dL (7-18); CHLORIDE 102 mmol/L (98-107); CO2 31 mmol/L (21-32); CREATININE 3.9 mg/dL (0.55-1.3); GLUCOSE,RANDOM 95 mg/dL (74-106); SGOT/AST 36 U/L (15-37); SGPT/ALT 21 U/L (13-61); SODIUM 139 mmol/L (136-145); TOT PROT 5.8 g/dl (6.4-8.2)
--- NOTE | 2019-02-14 16:03 | CONSULT ---
Consult Consult Specialty:: Nephrology Reason for Consultation:: ESRD - History of Present Illness Chief Complaint: dyspnea History of Present Illness: Pt is an 88 year old male with pmhx of ESRD, anemia, a-fib, CAD and CHF who presented with dyspnea. He was last dialyzed yesterday. He was found to be anemic and was admitted for transfusion. He was initially lethargic on admission but improved with prbc. He was javy found to have an elevated INR. He denies chest pain. - History Source History Provided By: Patient, Medical Record - Past Medical History Cardio/Vascular: Yes: AFIB, CAD, CHF, HTN, Hyperlipdemia Renal/: Yes: Renal Failure, Renal Inusuff, Hemodialysis Musculoskeletal: Yes: Other (spinal stenosis) - Past Surgical History Past Surgical History: Yes: CABG, Colectomy, Hernia Repair, Joint Replacement (b /l hip replacement ORIF right arm), Stent - Alcohol/Substance Use Hx Alcohol Use: No History of Substance Use: reports: None - Smoking History Smoking history: Former smoker Have you smoked in the past 12 months: No Aproximately how many cigarettes per day: 0 If you are a former smoker, when did you quit?: 35 years ago - Social History ADL: Independent History of Recent Travel: No Home Medications - Allergies Allergies/Adverse Reactions: Allergies Allergy/AdvReac Type Severity Reaction Status Date / Time No Known Allergies Allergy Verified 02/03/19 19:39 - Home Medications Home Medications: Ambulatory Orders Ranolazine [Ranexa -] 500 mg PO BID 03/22/12 Cholecalciferol (Vitamin D3) [Vitamin D -] 1,000 unit PO DAILY 03/13/18 Vit A/Vit C/Vit E/Zinc/Copper [Preservision Areds Tablet] 1 each PO DAILY Allopurinol [Zyloprim -] 150 mg PO DAILY 12/30/18 Rosuvastatin [Crestor -] 5 mg PO HS 12/30/18 Polyvinyl Alcohol [Artificial Tears] 1 drop OU Q8H PRN drops 01/29/19 Sevelamer Carbonate [Renvela -] 800 mg PO TIDCM tab 01/29/19 Midodrine HCl [Proamatine -] 5 mg PO BID-MID tablet 02/03/19 Family Disease History - Family Disease History Family Disease History: Heart Disease: Mother, Brother, Other: Father Review of Systems - Review of Systems Constitutional: reports: Malaise Eyes: reports: No Symptoms HENT: reports: No Symptoms Cardiovascular: reports: Edema, Shortness of Breath Respiratory: reports: Cough, SOB Gastrointestinal: reports: No Symptoms Genitourinary: reports: No Symptoms Musculoskeletal: reports: Muscle Weakness Neurological: reports: Change in LOC Endocrine: reports: No Symptoms Psychiatric: reports: No Symptoms Physical Exam Vital Signs: Vital Signs Temperature 97.6 F 02/14/19 15:00 Pulse Rate 61 02/14/19 15:00 Respiratory Rate 19 02/14/19 15:00 Blood Pressure 96/73 02/14/19 15:00 O2 Sat by Pulse Oximetry (%) 99 02/14/19 15:00 Constitutional: Yes: Calm Eyes: Yes: Conjunctiva Clear HENT: Yes: Atraumatic Neck: Yes: Supple Cardiovascular: Yes: S1, S2 Respiratory: Yes: On Nasal O2 Gastrointestinal: Yes: Normal Bowel Sounds, Soft Renal/: Yes: Incontinence Musculoskeletal: Yes: Muscle Weakness Edema: Yes Edema: LLE: 1+, RLE: 1+ Integumentary: Yes: WNL Neurological: Yes: Oriented Psychiatric: Yes: Oriented Labs: CBC, BMP 02/14/19 13:23 02/14/19 13:23 Laboratory Tests 02/14/19 02/14/19 02/14/19 00:20 00:20 08:13 WBC Hgb 5.8 L* 6.4 L* Potassium 2.6 L* 02/14/19 02/14/19 02/14/19 08:13 13:23 13:23 WBC 5.1 Hgb 7.2 L Potassium 2.7 L* 3.0 L Imaging - Results Cat Scan: Report Reviewed Assessment/Plan Current Medications Generic Name Dose Route Start Last Admin Trade Name Freq PRN Reason Stop Dose Admin Allopurinol 150 mg 02/14/19 10:00 02/14/19 10:45 Zyloprim - PO 150 mg DAILY JAYCE Administration Chlorhexidine Gluconate 1 applic 02/14/19 22:00 Hibiclens For Decolonization - TP HS JAYCE Pantoprazole Sodium 80 mg/ 100 mls @ 10 mls/hr 02/14/19 04:00 02/14/19 15:00 Sodium Chloride IVPB 10 mls/hr Q10H JAYCE Administration 8 MG/HR Potassium Chloride 10 meq in 100 mls @ 100 mls/hr 02/14/19 16:00 Potassium Chloride 10 Meq Premix Ivpb - IVPB 02/14/19 18:59 Q60M JAYCE Midodrine 5 mg 02/14/19 10:00 02/14/19 10:45 Proamatine - PO 5 mg BID-MID JAYCE Administration Mupirocin 1 applic 02/14/19 10:00 Bactroban Ointment (For Decolonization) - NS 02/19/19 09:59 BID JAYCE Ondansetron HCl 4 mg 02/14/19 03:49 Zofran Injection IVPUSH Q8H PRN NAUSEA Ranolazine 500 mg 02/14/19 10:00 02/14/19 10:45 Ranexa - PO 500 mg BID JAYCE Administration Rosuvastatin Calcium 5 mg 02/14/19 22:00 Crestor - PO HS JAYCE Sevelamer Carbonate 800 mg 02/14/19 08:00 02/14/19 15:07 Renvela - PO Not Given TIDCM JAYCE Impression 1. ESRD 2. CKD 3. CHF 4. hypotension 5. resp failure requiring bipap 6. a-fib 7. hld 8. bilateral pleural effusions 9. anemia 10. hypokalemia 11. coumadin tox Plan - transfuse prbc - replace potassium - monitor in ICU - family and pt are discussing weather or not they want to continue dialysis - monitor bp - titrate up dose of midodrine as needed
--- NOTE | 2019-02-14 17:19 | CON.GI ---
Consult Consult Specialty:: Gastroenterology Referred by:: Dr Matos Reason for Consultation:: Anemia - History of Present Illness Chief Complaint: Too lethargic to express History of Present Illness: 88M developed an altered mental status and hypotension while at dialysis which prompted this admission. His INR is markedly elevated and black stools has been noted. No hematemesis. His and family members are at his bedside and have expressed that they want no heroic measures or endoscopy undertaken and tell me that intend to stop his dialysis. I saw Cliff in the office on 11/04/18 when he was having paradoxical diarrhea due to fecal impaction which was managed with Miralax. 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 His last colonoscopy was done on 07/12/12 when universal diverticulosis and a patent anastomosis was found. He underwent a right hemicolectomy in the past for a cecal perforation related to ileus. He has recently been hypotensive during his dialyses and been in clinical decline. - History Source History Provided By: Family Member, Medical Record Limitations to Obtaining History: Clinical Condition - Past Medical History Cardio/Vascular: Yes: AFIB, CAD (CABG 2003 , coronary stent 2008), CHF, HTN, Hyperlipdemia Gastrointestinal: Yes: Diverticulosis, Other (colon polyps remotely) Renal/: Yes: Renal Inusuff, Renal Calculi Infectious Disease: Yes: C-Diff (01/24), VREF (UTI) Musculoskeletal: Yes: Other (spinal stenosis) Rheumatology: Yes: Gout Additional Medical History: macular degeneration - Past Surgical History Past Surgical History: Yes: AV Fistula/Graft, CABG (08/18), Cataract Removal ( bilateral), Colectomy (R hemicolectomy for cecal perforation during postop ileus ), Colonoscopy, Hernia Repair, Joint Replacement (b/l hip replacement ORIF right arm), Stent, Upper Endoscopy Additional Surgical History: hammer toe surgery - Alcohol/Substance Use Hx Alcohol Use: Yes (socially until dialysis) History of Substance Use: reports: None - Smoking History Smoking history: Former smoker Have you smoked in the past 12 months: No Aproximately how many cigarettes per day: 0 If you are a former smoker, when did you quit?: 1971 - Social History Usual Living Arrangement: With Spouse ADL: Independent 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 Place of : [facility] History of Recent Travel: No Home Medications - Allergies Allergies/Adverse Reactions: Allergies Allergy/AdvReac Type Severity Reaction Status Date / Time No Known Allergies Allergy Verified 02/03/19 19:39 - Home Medications Home Medications: Ambulatory Orders Ranolazine [Ranexa -] 500 mg PO BID 03/22/12 Cholecalciferol (Vitamin D3) [Vitamin D -] 1,000 unit PO DAILY 03/13/18 Vit A/Vit C/Vit E/Zinc/Copper [Preservision Areds Tablet] 1 each PO DAILY Allopurinol [Zyloprim -] 150 mg PO DAILY 12/30/18 Rosuvastatin [Crestor -] 5 mg PO HS 12/30/18 Polyvinyl Alcohol [Artificial Tears] 1 drop OU Q8H PRN drops 01/29/19 Sevelamer Carbonate [Renvela -] 800 mg PO TIDCM tab 01/29/19 Midodrine HCl [Proamatine -] 5 mg PO BID-MID tablet 02/03/19 Family Disease History - Family Disease History Family Disease History: Heart Disease: Mother (CVA), Brother (prostate cancer), CA: Brother, Other: Father (CVA), Mother Review of Systems Unable to obtain ROS, reason: lethargy Physical Exam-GI Vital Signs: Vital Signs Temperature 97.6 F 02/14/19 15:00 Pulse Rate 61 02/14/19 15:00 Respiratory Rate 19 02/14/19 15:00 Blood Pressure 96/73 02/14/19 15:00 O2 Sat by Pulse Oximetry (%) 99 02/14/19 15:00 CBC,CMP WBC 5.1 K/mm3 (4.0-10.0) 02/14/19 13:23 RBC 2.30 M/mm3 (4.00-5.60) L 02/14/19 13:23 Hgb 7.2 GM/dL (11.7-16.9) L 02/14/19 13:23 Hct 21.9 % (35.4-49) L 02/14/19 13:23 MCV 95.2 fl (80-96) 02/14/19 13:23 MCH 31.1 pg (25.7-33.7) 02/14/19 13:23 MCHC 32.6 g/dl (32.0-35.9) 02/14/19 13:23 RDW 16.8 % (11.9-15.9) H 02/14/19 13:23 Plt Count 64 K/MM3 (134-434) L 02/14/19 13:23 MPV 8.4 fl (7.5-11.1) 02/14/19 13:23 Absolute Neuts (auto) 3.4 K/mm3 (1.5-8.0) 02/14/19 08:13 Neutrophils % 70.3 % (42.8-82.8) 02/14/19 08:13 Lymphocytes % 15.2 % (8-40) 02/14/19 08:13 Monocytes % 11.1 % (3.8-10.2) H 02/14/19 08:13 Eosinophils % 2.6 % (0-4.5) 02/14/19 08:13 Basophils % 0.8 % (0-2.0) 02/14/19 08:13 Nucleated RBC % 0 % (0-0) 02/14/19 08:13 Sodium 139 mmol/L (136-145) 02/14/19 13:23 Potassium 3.0 mmol/L (3.5-5.1) L 02/14/19 13:23 Chloride 102 mmol/L (98-107) 02/14/19 13:23 Carbon Dioxide 31 mmol/L (21-32) 02/14/19 13:23 Anion Gap 7 MMOL/L (8-16) L 02/14/19 13:23 BUN 44 mg/dL (7-18) H 02/14/19 13:23 Creatinine 3.9 mg/dL (0.55-1.3) H 02/14/19 13:23 Creat Clearance w eGFR 14.63 (>60) 02/14/19 13:23 Random Glucose 95 mg/dL (74-106) 02/14/19 13:23 Lactic Acid 1.1 mmol/L (0.4-2.0) 02/14/19 02:11 Calcium 8.0 mg/dL (8.5-10.1) L 02/14/19 13:23 Phosphorus 3.1 mg/dL (2.5-4.9) 02/14/19 08:13 Magnesium 2.1 mg/dL (1.8-2.4) 02/14/19 08:13 Total Bilirubin 0.8 mg/dL (0.2-1) 02/14/19 13:23 AST 36 U/L (15-37) 02/14/19 13:23 ALT 21 U/L (13-61) 02/14/19 13:23 Alkaline Phosphatase 67 U/L (45-117) 02/14/19 13:23 Creatine Kinase 178 U/L (26-308) 02/14/19 08:13 Creatine Kinase Index 2.5 % (0.0-5.0) 02/14/19 08:13 CK-MB (CK-2) 4.6 ng/mL (0.5-3.6) H 02/14/19 08:13 Troponin I 0.16 ng/ml (0.00-0.05) H 02/14/19 13:23 B-Natriuretic Peptide 08560.2 pg/ml (5-450) H 02/14/19 08:13 Total Protein 5.8 g/dl (6.4-8.2) L 02/14/19 13:23 Albumin 2.7 g/dl (3.4-5.0) L 02/14/19 13:23 CBC,CMP WBC 5.1 K/mm3 (4.0-10.0) 02/14/19 13:23 RBC 2.30 M/mm3 (4.00-5.60) L 02/14/19 13:23 Hgb 7.2 GM/dL (11.7-16.9) L 02/14/19 13:23 Hct 21.9 % (35.4-49) L 02/14/19 13:23 MCV 95.2 fl (80-96) 02/14/19 13:23 MCH 31.1 pg (25.7-33.7) 02/14/19 13:23 MCHC 32.6 g/dl (32.0-35.9) 02/14/19 13:23 RDW 16.8 % (11.9-15.9) H 02/14/19 13:23 Plt Count 64 K/MM3 (134-434) L 02/14/19 13:23 MPV 8.4 fl (7.5-11.1) 02/14/19 13:23 Absolute Neuts (auto) 3.4 K/mm3 (1.5-8.0) 02/14/19 08:13 Neutrophils % 70.3 % (42.8-82.8) 02/14/19 08:13 Lymphocytes % 15.2 % (8-40) 02/14/19 08:13 Monocytes % 11.1 % (3.8-10.2) H 02/14/19 08:13 Eosinophils % 2.6 % (0-4.5) 02/14/19 08:13 Basophils % 0.8 % (0-2.0) 02/14/19 08:13 Nucleated RBC % 0 % (0-0) 02/14/19 08:13 Sodium 139 mmol/L (136-145) 02/14/19 13:23 Potassium 3.0 mmol/L (3.5-5.1) L 02/14/19 13:23 Chloride 102 mmol/L (98-107) 02/14/19 13:23 Carbon Dioxide 31 mmol/L (21-32) 02/14/19 13:23 Anion Gap 7 MMOL/L (8-16) L 02/14/19 13:23 BUN 44 mg/dL (7-18) H 02/14/19 13:23 Creatinine 3.9 mg/dL (0.55-1.3) H 02/14/19 13:23 Creat Clearance w eGFR 14.63 (>60) 02/14/19 13:23 Random Glucose 95 mg/dL (74-106) 02/14/19 13:23 Lactic Acid 1.1 mmol/L (0.4-2.0) 02/14/19 02:11 Calcium 8.0 mg/dL (8.5-10.1) L 02/14/19 13:23 Phosphorus 3.1 mg/dL (2.5-4.9) 02/14/19 08:13 Magnesium 2.1 mg/dL (1.8-2.4) 02/14/19 08:13 Total Bilirubin 0.8 mg/dL (0.2-1) 02/14/19 13:23 AST 36 U/L (15-37) 02/14/19 13:23 ALT 21 U/L (13-61) 02/14/19 13:23 Alkaline Phosphatase 67 U/L (45-117) 02/14/19 13:23 Creatine Kinase 178 U/L (26-308) 02/14/19 08:13 Creatine Kinase Index 2.5 % (0.0-5.0) 02/14/19 08:13 CK-MB (CK-2) 4.6 ng/mL (0.5-3.6) H 02/14/19 08:13 Troponin I 0.16 ng/ml (0.00-0.05) H 02/14/19 13:23 B-Natriuretic Peptide 40133.2 pg/ml (5-450) H 02/14/19 08:13 Total Protein 5.8 g/dl (6.4-8.2) L 02/14/19 13:23 Albumin 2.7 g/dl (3.4-5.0) L 02/14/19 13:23 Constitutional: Yes: Other (lethargic, agonal breathing) Neck: Yes: Trachea Midline Cardiovascular: Yes: Pulse Irregular, Other (healed median sternotomy incision) Respiratory: Yes: CTA Bilaterally Gastrointestinal Inspection: Yes: Scars (healed vertical periumbilical incision) ...Auscultate: Yes: Hypoactive Bowel Sounds ...Palpate: Yes: Soft, Other (nontender) ...Rectal Exam: Yes: Deferred (surrounded by family) Labs: CBC, BMP 02/14/19 13:23 02/14/19 13:23 INR, PTT INR 3.18 (0.83-1.09) H 02/14/19 08:13 Problem List - Problems (1) Altered mental status Code(s): R41.82 - ALTERED MENTAL STATUS, UNSPECIFIED (2) History of right hemicolectomy Code(s): Z90.49 - ACQUIRED ABSENCE OF OTHER SPECIFIED PARTS OF DIGESTIVE TRACT (3) Colon polyp Code(s): K63.5 - POLYP OF COLON (4) Diverticulosis Code(s): K57.90 - DVRTCLOS OF INTEST, PART UNSP, W/O PERF OR ABSCESS W/O BLEED (5) Constipation Code(s): K59.00 - CONSTIPATION, UNSPECIFIED (6) ESRD (end stage renal disease) on dialysis Code(s): N18.6 - END STAGE RENAL DISEASE; Z99.2 - DEPENDENCE ON RENAL DIALYSIS (7) GI bleed Code(s): K92.2 - GASTROINTESTINAL HEMORRHAGE, UNSPECIFIED Qualifiers: GI bleed type/associated pathology: melena Qualified Code(s): K92.1 - Melena (8) Hx of CABG Code(s): Z95.1 - PRESENCE OF AORTOCORONARY BYPASS GRAFT (9) Warfarin toxicity Code(s): T45.511A - POISONING BY ANTICOAGULANTS, ACCIDENTAL, INIT Qualifiers: Encounter type: initial encounter Injury intent: accidental or unintentional Qualified Code(s): T45.511A - Poisoning by anticoagulants, accidental (unintentional), initial encounter (10) Anemia Code(s): D64.9 - ANEMIA, UNSPECIFIED Qualifiers: Anemia type: unspecified type Qualified Code(s): D64.9 - Anemia, unspecified (11) Atrial fibrillation Code(s): I48.91 - UNSPECIFIED ATRIAL FIBRILLATION Qualifiers: Atrial fibrillation type: permanent Qualified Code(s): I48.2 - Chronic atrial fibrillation (12) Congestive heart failure Code(s): I50.9 - HEART FAILURE, UNSPECIFIED Qualifiers: Heart failure type: unspecified Heart failure chronicity: acute on chronic Qualified Code(s): I50.9 - Heart failure, unspecified Assessment/Plan Impression: 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 Cannot exclude alternate bleeding etiologies such as ulcers, erosive GERD or gastritis, ischemic colitis, diverticuli or neoplasms etc Plan: Family request no endoscopic intervention Transfuse as needed Reverse the warfarin effect PPI drip empirically Dr Garza is covering this weekend. Please call him if decision is changed regarding endoscopic intervention
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
--- NOTE | 2019-02-14 18:52 | PN ---
Teaching Attending Note Name of Resident: Galilea Chakraborty ATTENDING PHYSICIAN STATEMENT I saw and evaluated the patient. I reviewed the resident's note and discussed the case with the resident. I agree with the resident's findings and plan as documented. SUBJECTIVE: unable to obtain on first evaluation as was obtunded, on revisit was awake and conversant OBJECTIVE: Last Vital Signs Temp Pulse Resp BP Pulse Ox 36.4 C 54 L 18 100/44 L 99 02/14/19 18:42 02/14/19 18:42 02/14/19 18:42 02/14/19 18:42 02/14/19 15:00 Gen: obtunded in am, improved to nad and alert HEENT: dried blood in mouth Pulm: ronchorous in all lung roman CV: bradycardic w/o m/r/g Abd: hypoactive bowel sounds, s/nt/nd Ext: no c/c/e CBC, BMP 02/14/19 13:23 02/14/19 13:23 ASSESSMENT AND PLAN: -case d/w ICU, nephrology, and ID -will give empiric antibiotics as acute onset, possible infection -improved transfusion, close monitoring in the ICU -PPI gtt -potassium replacement -coumadin reversed with FFP and vitamin K -head CT negative for acute bleed -family requests DNR/DNI and currently declining endoscopy -considering hospice 70 minutes spent in critical care time with patient Problem List - Problems (1) Acute blood loss anemia Code(s): D62 - ACUTE POSTHEMORRHAGIC ANEMIA (2) Warfarin toxicity Code(s): T45.511A - POISONING BY ANTICOAGULANTS, ACCIDENTAL, INIT Qualifiers: Encounter type: initial encounter Injury intent: accidental or unintentional Qualified Code(s): T45.511A - Poisoning by anticoagulants, accidental (unintentional), initial encounter (3) Acute on chronic diastolic (congestive) heart failure Code(s): I50.33 - ACUTE ON CHRONIC DIASTOLIC (CONGESTIVE) HEART FAILURE (4) Altered mental status Code(s): R41.82 - ALTERED MENTAL STATUS, UNSPECIFIED (5) ESRD (end stage renal disease) on dialysis Code(s): N18.6 - END STAGE RENAL DISEASE; Z99.2 - DEPENDENCE ON RENAL DIALYSIS (6) GI bleed Code(s): K92.2 - GASTROINTESTINAL HEMORRHAGE, UNSPECIFIED Qualifiers: GI bleed type/associated pathology: melena Qualified Code(s): K92.1 - Melena (7) Hypokalemia Code(s): E87.6 - HYPOKALEMIA (8) CAD (coronary artery disease) Code(s): I25.10 - ATHSCL HEART DISEASE OF [place] CORONARY ARTERY W/O ANG PCTRS Qualifiers: Coronary Disease-Associated Artery/Lesion type: [place] artery [place] vs. transplanted heart: [place] heart Associated angina: without angina Qualified Code(s): I25.10 - Atherosclerotic heart disease of [place] coronary artery without angina pectoris (9) Hypotension Code(s): I95.9 - HYPOTENSION, UNSPECIFIED Qualifiers: Hypotension type: other hypotension type Qualified Code(s): I95.89 - Other hypotension (10) Atrial fibrillation Code(s): I48.91 - UNSPECIFIED ATRIAL FIBRILLATION Qualifiers: Atrial fibrillation type: permanent Qualified Code(s): I48.2 - Chronic atrial fibrillation (11) Hyperlipidemia Code(s): E78.5 - HYPERLIPIDEMIA, UNSPECIFIED Qualifiers: Hyperlipidemia type: pure hypercholesterolemia Qualified Code(s): E78.00 - Pure hypercholesterolemia, unspecified; E78.0 - Pure hypercholesterolemia
[2019-02-14] MEDS: ROSUVASTATIN CA 5 MG TABLET (FP) PO SCH (21:39)
[2019-02-14] MEDS: CHLORHEXIDINE GLUCONATE 4% CLEANSER FOR DECOLONIZATION TP SCH (21:42)
[2019-02-14] MEDS ORDERED: CHLORHEXIDINE GLUCONATE 4% CLEANSER FOR DECOLONIZATION TP SCH (22:00)
[2019-02-14] MEDS: MUPIROCIN 2% TOPICAL OINTMENT FOR DECOLONIZATION NS SCH ×2 (22:01→22:35)
[2019-02-15 01:06] LABS: HEMATOCRIT 25.1 % (35.4-49); HEMOGLOBIN 8.2 GM/dL (11.7-16.9); MCH 30.7 pg (25.7-33.7); MCHC 32.7 g/dl (32.0-35.9); MEAN CELL VOLUME 93.8 fl (80-96); MEAN PLT VOLUME 8.7 fl (7.5-11.1); PLATELET COUNT 78 K/MM3 (134-434); RBC 2.67 M/mm3 (4.00-5.60); RDW 18.4 % (11.9-15.9); WHITE BLOOD COUNT 6.4 K/mm3 (4.0-10.0)
[2019-02-15 01:32] LABS: ANION GAP 8 MMOL/L (8-16); BLOOD UREA NITROGEN 45 mg/dL (7-18); CALCIUM 7.7 mg/dL (8.5-10.1); CHLORIDE 102 mmol/L (98-107); CO2 31 mmol/L (21-32); CREATININE 4.5 mg/dL (0.55-1.3); GLUCOSE,RANDOM 87 mg/dL (74-106); POTASSIUM 3.2 mmol/L (3.5-5.1); SODIUM 140 mmol/L (136-145)
[2019-02-15] MEDS: PANTOPRAZOLE SODIUM 80 MG in SODIUM CHLORIDE 100 ML IVPB SCH ×3 (04:03→14:21)
[2019-02-15 06:49] LABS: HEMATOCRIT 26.7 % (35.4-49); HEMOGLOBIN 8.8 GM/dL (11.7-16.9); MCH 30.8 pg (25.7-33.7); MCHC 33.1 g/dl (32.0-35.9); MEAN CELL VOLUME 92.8 fl (80-96); MEAN PLT VOLUME 8.3 fl (7.5-11.1); PLATELET COUNT 94 K/MM3 (134-434); RBC 2.88 M/mm3 (4.00-5.60); RDW 18.1 % (11.9-15.9)
[2019-02-15 07:04] LABS: INR 1.44 (0.83-1.09); PROTHROMBIN TIME (PATIENT) 17.1 SEC (9.7-13.0)
[2019-02-15 07:21] LABS: ALK PHOS 74 U/L (45-117); ANION GAP 9 MMOL/L (8-16); BILIRUBIN,TOTAL 0.9 mg/dL (0.2-1); BLOOD UREA NITROGEN 48 mg/dL (7-18); CALCIUM 8.3 mg/dL (8.5-10.1); CHLORIDE 101 mmol/L (98-107); CO2 31 mmol/L (21-32); CREATININE 4.7 mg/dL (0.55-1.3); GLUCOSE,RANDOM 79 mg/dL (74-106); MAGNESIUM 2.2 mg/dL (1.8-2.4); PHOSPHOROUS 4.2 mg/dL (2.5-4.9); POTASSIUM 3.1 mmol/L (3.5-5.1); SGOT/AST 34 U/L (15-37); SGPT/ALT 19 U/L (13-61); SODIUM 140 mmol/L (136-145)
--- NOTE | 2019-02-15 09:13 | PN ---
Progress Note (short form) - Note Progress Note: awake and alert no complaints of chest or abdominal pain prior admission in January -had right pleural effusion requiring chest tube family has declined endoscopy no cough on nasal canulla Vital Signs Period Temp Pulse Resp BP Sys/Ascencio Pulse Ox Last 24 Hr 97.1 F-98.1 F 50-61 15-21 91-110/41-73 99-99 cor-rrr llungs decreased bs at bases abd soft, NT ext no edema CBC, BMP 02/15/19 05:30 02/15/19 05:30 Microbiology 02/14/19 02:11 Blood - Peripheral Venous Blood Culture - Preliminary NO GROWTH OBTAINED AFTER 24 HOURS, INCUBATION TO CONTINUE FOR 4 DAYS. 02/14/19 02:09 Blood - Peripheral Venous Blood Culture - Preliminary NO GROWTH OBTAINED AFTER 24 HOURS, INCUBATION TO CONTINUE FOR 4 DAYS. cxray -suspect right pleural effusion imp/reccd GI bleed coagulopathy due to coumadin coagulopathy-resolved suspect recurrent right pleural effusion-try to get erect cxray esrd/hd observe off antibiotics DNR/DNI Problem List - Problems (1) GI bleed Code(s): K92.2 - GASTROINTESTINAL HEMORRHAGE, UNSPECIFIED Qualifiers: GI bleed type/associated pathology: melena Qualified Code(s): K92.1 - Melena (2) Warfarin toxicity Code(s): T45.511A - POISONING BY ANTICOAGULANTS, ACCIDENTAL, INIT Qualifiers: Encounter type: initial encounter Injury intent: accidental or unintentional Qualified Code(s): T45.511A - Poisoning by anticoagulants, accidental (unintentional), initial encounter (3) ESRD (end stage renal disease) on dialysis Code(s): N18.6 - END STAGE RENAL DISEASE; Z99.2 - DEPENDENCE ON RENAL DIALYSIS
--- NOTE | 2019-02-15 09:26 | PN ---
Progress Note, Physician History of Present Illness: Patient is an 88 year old male with underlying history of CAD s/p CABG (JHAVERI to mLAD, SVG to RPDA), s/p PCI/LUIS EDUARDO to LAD, persistent AF on Coumadin, diastolic dysfunction with history of acute on chronic heart failure, HTN, hypercholesterolemia, carotid stenosis, ESRD on HF via PC who presents with worsening shortness of breath, lethargy, hypotension in context of supratherapeutic INR, acute blood loss anemia, guaiac positive stools and melena. Patient received 2 units PRBC, 2 units FFP. Recent hospitalization 2018 includes: b/l pleural effusion that required rt chest tube; cardiogenic shock placed on dobutamine/levophed required, currently maintained on midodrine. Renal failure requiring HD, now with permacath. Dialysis TTS. - Current Medication List Current Medications: Active Medications Allopurinol (Zyloprim -) 150 mg PO DAILY [facility] Last Admin: 02/14/19 10:45 Dose: 150 mg Chlorhexidine Gluconate (Hibiclens For Decolonization -) 1 applic TP [facility] Last Admin: 02/14/19 21:42 Dose: 1 applic Pantoprazole Sodium 80 mg/ (Sodium Chloride) 100 mls @ 10 mls/hr IVPB Q10H [facility] Last Admin: 02/15/19 04:03 Dose: Not Given Midodrine (Proamatine -) 5 mg PO BID-MID [facility] Last Admin: 02/14/19 17:52 Dose: Not Given Mupirocin (Bactroban Ointment (For Decolonization) -) 1 applic NS BID [facility] Stop: 02/19/19 09:59 Last Admin: 02/14/19 22:35 Dose: 1 applic Ondansetron HCl (Zofran Injection) 4 mg IVPUSH Q8H PRN PRN Reason: NAUSEA Ranolazine (Ranexa -) 500 mg PO BID [facility] Last Admin: 02/14/19 21:42 Dose: Not Given Rosuvastatin Calcium (Crestor -) 5 mg PO HS [facility] Last Admin: 02/14/19 21:39 Dose: Not Given Sevelamer Carbonate (Renvela -) 800 mg PO TIDCM [facility] Last Admin: 02/14/19 17:41 Dose: Not Given - Objective Vital Signs: Vital Signs Temperature 98.1 F 02/15/19 06:00 Pulse Rate 61 02/15/19 08:00 Respiratory Rate 21 H 02/15/19 08:00 Blood Pressure 103/54 L 02/15/19 08:00 O2 Sat by Pulse Oximetry (%) 99 02/14/19 21:00 Eyes: Yes: WNL, Conjunctiva Clear, EOM Intact HENT: Yes: WNL, Atraumatic, Normocephalic Neck: Yes: WNL, Supple, Trachea Midline Cardiovascular: Yes: WNL, Regular Rate and Rhythm Respiratory: Yes: WNL, Regular, CTA Bilaterally Gastrointestinal: Yes: WNL, Normal Bowel Sounds Genitourinary: Yes: WNL Musculoskeletal: Yes: WNL Extremities: Yes: WNL Edema: No Integumentary: Yes: WNL Neurological: Yes: WNL, Alert, Oriented ...Motor Strength: WNL Psychiatric: Yes: WNL Labs: CBC, BMP 02/15/19 05:30 02/15/19 05:30 INR, PTT INR 1.44 (0.83-1.09) H 02/15/19 05:30 Assessment/Plan 02/14/2019 Echo: Normal LV size and low normal LV fxn LVEF 50%, mod dilated with mod-severe decrease RV fxn, D shaped septum from RV pressure overload, mild AUTUMN, mild MR, severe TR, RVSP 40-50 mmHg, no pericardial effusion 12/31/2018 Echo: Normal LV size and fxn LVEF 60%, mod dilated RV with mild decreased RV fxn, mild-mod AUTUMN, mild MR, mod TR RVSP 31 mmHg 1. Acute Hypoxic Respiratory Failure 2. Acute blood loss anemia referable to GI bleed in context of supratherapeutic INR 3. Chronic diastolic heart failure with pleural effusion post left pigtail, cor pulmonale 4. CAD post CABG/PCI (stent) evidence of demand ischemia angina pectoris 5. Persistent atrial fibrillation [id number] score of 5 on Coumadin therapy with supratherapeutic INR 6. Toxic metabolic encephelopathy 7. Hypercholesterolemia 8. MR mild to moderate in severity 9. TR severe in severity 10. Carotid stenosis, moderate in severity 11. COPD 12. ESRD on HD via PC with hypokalemia 13. Anemia and thrombocytopenia PLAN: 1. Transfuse to maintain Hgb>8.0, anticoagulation reversed, anticoagulation to be held pending hemostasis, trend trops to document peak 2. GI evaluation, IV Protonix 3. Continue Crestor 5 mg QHS, O2 to keep SpO2 >90%, midodrine 5 bid with uptitration as hemodynamics 4. HD via PC per renal service, replete K cc time spent [address] Ruth
[2019-02-15] MEDS: MUPIROCIN 2% TOPICAL OINTMENT FOR DECOLONIZATION NS SCH ×2 (10:21→21:22)
--- NOTE | 2019-02-15 10:24 | PN ---
Progress Note (short form) - Note Progress Note: Seen and examined in the ICU: -Hgb stable -BP stable -cont on PPI drip -denies: RICHARD/SOB/CP/N/V -DNR/DNI per GOC discussions Current Medications Allopurinol (Zyloprim -) 150 mg PO DAILY [facility] Last Admin: 02/14/19 10:45 Dose: 150 mg Chlorhexidine Gluconate (Hibiclens For Decolonization -) 1 applic TP HS [facility] Last Admin: 02/14/19 21:42 Dose: 1 applic Pantoprazole Sodium 80 mg/ (Sodium Chloride) 100 mls @ 10 mls/hr IVPB Q10H [facility] Last Admin: 02/15/19 10:17 Dose: 10 mls/hr Midodrine (Proamatine -) 5 mg PO BID-MID [facility] Last Admin: 02/14/19 17:52 Dose: Not Given Mupirocin (Bactroban Ointment (For Decolonization) -) 1 applic NS BID [facility] Stop: 02/19/19 09:59 Last Admin: 02/15/19 10:21 Dose: 1 applic Ondansetron HCl (Zofran Injection) 4 mg IVPUSH Q8H PRN PRN Reason: NAUSEA Ranolazine (Ranexa -) 500 mg PO BID [facility] Last Admin: 02/14/19 21:42 Dose: Not Given Rosuvastatin Calcium (Crestor -) 5 mg PO HS [facility] Last Admin: 02/14/19 21:39 Dose: Not Given Sevelamer Carbonate (Renvela -) 800 mg PO TIDCM [facility] Last Admin: 02/14/19 17:41 Dose: Not Given Vital Signs Period Temp Pulse Resp BP Sys/Ascencio Pulse Ox Last 24 Hr 97.1 F-98.1 F 50-61 15-21 91-110/41-73 99-99 Intake & Output 02/12/19 02/13/19 02/14/19 02/15/19 23:59 23:59 23:59 23:59 Intake Total 630 70 Output Total 0 Balance 630 70 Weight 68.039 kg 68.039 kg 75.977 kg Exam: General: awake, alert w/o distress HEENT: PERRL CV: NSR Pulm: diminished RLL otherwise CTA Abd: SNTND +BS Ext: WWP, no edema Neuro: AOx3, JETER CBC, BMP 02/15/19 05:30 02/15/19 05:30 ASSESSMENT AND PLAN: Acute Hypoxic Respiratory Failure Most likely UGIB Anemia/Thrombocytopenia Acute on Chronic Diastolic Heart Failure Atrial Fibrillation Supratherapeutic INR CAD s/p CABG Mitral Regurgitation COPD ESRD on HD - monitor H/H, coags - transfuse as needed for goal hgb >7.0 - holding anticoagulation - protonix drip 72hr then BID dosing - GI following: no EGD/c-scope per family - advance diet - HD per renal, on going GOC discussions about continuing therapy - O2 to keep SpO2 >90% - hold antihypertensives - aspiration precautions - rate control - DNR/DNI, critical care time spent in reviewing chart, evaluating patient and formulating plan 35 min Sae FLORES
[2019-02-15] MEDS ORDERED: PT OWN MED DRAWER 7, Y5N ONE ×3 (10:35→21:09)
[2019-02-15] MEDS: RANOLAZINE E.R. 500 MG TABLET (FP) PO SCH ×2 (10:35→21:23)
[2019-02-15] MEDS: SEVELAMER CARBONATE 800 MG TAB (FP) PO SCH ×3 (10:36→17:56)
--- NOTE | 2019-02-15 10:36 | PN ---
Progress Note, Physician Chief Complaint: Mr Aleman says he is feeling better today. Denies cp, sob, n/v. - Current Medication List Current Medications: Active Medications Allopurinol (Zyloprim -) 150 mg PO DAILY [facility] Last Admin: 02/14/19 10:45 Dose: 150 mg Chlorhexidine Gluconate (Hibiclens For Decolonization -) 1 applic TP HS [facility] Last Admin: 02/14/19 21:42 Dose: 1 applic Pantoprazole Sodium 80 mg/ (Sodium Chloride) 100 mls @ 10 mls/hr IVPB Q10H [facility] Last Admin: 02/15/19 10:17 Dose: 10 mls/hr Midodrine (Proamatine -) 5 mg PO BID-MID [facility] Last Admin: 02/14/19 17:52 Dose: Not Given Mupirocin (Bactroban Ointment (For Decolonization) -) 1 applic NS BID [facility] Stop: 02/19/19 09:59 Last Admin: 02/15/19 10:21 Dose: 1 applic Ondansetron HCl (Zofran Injection) 4 mg IVPUSH Q8H PRN PRN Reason: NAUSEA Ranolazine (Ranexa -) 500 mg PO BID [facility] Last Admin: 02/14/19 21:42 Dose: Not Given Rosuvastatin Calcium (Crestor -) 5 mg PO [facility] Last Admin: 02/14/19 21:39 Dose: Not Given Sevelamer Carbonate (Renvela -) 800 mg PO TIDCM [facility] Last Admin: 02/14/19 17:41 Dose: Not Given - Objective Vital Signs: Vital Signs Temperature 36.3 C L 02/15/19 10:00 Pulse Rate 72 02/15/19 10:00 Respiratory Rate 18 02/15/19 10:00 Blood Pressure 109/45 L 02/15/19 10:00 O2 Sat by Pulse Oximetry (%) 99 02/14/19 21:00 Constitutional: Yes: Well Nourished, No Distress, Calm Cardiovascular: Yes: Regular Rate and Rhythm. No: Gallop, Murmur, Rub Respiratory: Yes: Regular, On Nasal O2, Rhonchi. No: CTA Bilaterally, Rales, Wheezes Gastrointestinal: Yes: Normal Bowel Sounds, Soft. No: Distention, Tenderness Extremities: Yes: WNL Edema: No Labs: CBC, BMP 02/15/19 05:30 02/15/19 05:30 INR, PTT INR 1.44 (0.83-1.09) H 02/15/19 05:30 Problem List - Problems (1) Acute blood loss anemia Code(s): D62 - ACUTE POSTHEMORRHAGIC ANEMIA (2) Warfarin toxicity Code(s): T45.511A - POISONING BY ANTICOAGULANTS, ACCIDENTAL, INIT Qualifiers: Encounter type: initial encounter Injury intent: accidental or unintentional Qualified Code(s): T45.511A - Poisoning by anticoagulants, accidental (unintentional), initial encounter (3) Acute on chronic diastolic (congestive) heart failure Code(s): I50.33 - ACUTE ON CHRONIC DIASTOLIC (CONGESTIVE) HEART FAILURE (4) Altered mental status Code(s): R41.82 - ALTERED MENTAL STATUS, UNSPECIFIED (5) ESRD (end stage renal disease) on dialysis Code(s): N18.6 - END STAGE RENAL DISEASE; Z99.2 - DEPENDENCE ON RENAL DIALYSIS (6) GI bleed Code(s): K92.2 - GASTROINTESTINAL HEMORRHAGE, UNSPECIFIED Qualifiers: GI bleed type/associated pathology: melena Qualified Code(s): K92.1 - Melena (7) Hypokalemia Code(s): E87.6 - HYPOKALEMIA (8) CAD (coronary artery disease) Code(s): I25.10 - ATHSCL HEART DISEASE OF [place] CORONARY ARTERY W/O ANG PCTRS Qualifiers: Coronary Disease-Associated Artery/Lesion type: [place] artery [place] vs. transplanted heart: [place] heart Associated angina: without angina Qualified Code(s): I25.10 - Atherosclerotic heart disease of [place] coronary artery without angina pectoris (9) Hypotension Code(s): I95.9 - HYPOTENSION, UNSPECIFIED Qualifiers: Hypotension type: other hypotension type Qualified Code(s): I95.89 - Other hypotension (10) Atrial fibrillation Code(s): I48.91 - UNSPECIFIED ATRIAL FIBRILLATION Qualifiers: Atrial fibrillation type: permanent Qualified Code(s): I48.2 - Chronic atrial fibrillation (11) Hyperlipidemia Code(s): E78.5 - HYPERLIPIDEMIA, UNSPECIFIED Qualifiers: Hyperlipidemia type: pure hypercholesterolemia Qualified Code(s): E78.00 - Pure hypercholesterolemia, unspecified; E78.0 - Pure hypercholesterolemia Assessment/Plan -bleeding appears to have stopped, s/p 3 units -will continue protonix gtt currently -can change to IV bid tomorrow if H/H remains stable or continues to improve -will trial clear liquid diet -INR corrected, will not be able to restart coumadin since risk of catastrophic GI bleed outweighs benefit of stroke protection -will d/w Dr Montgomery potassium replacement -case d/w Dr Monroe, no signs of infection so no need for empiric antibiotics -continue midodrine for hypotension -continue ICU monitoring today -if stable, transfer to telemetry tomorrow -continue current management 32 minutes in critical care time spent with patient
[2019-02-15] MEDS: MIDODRINE HCL 5 MG TABLET PO SCH ×3 (10:37→21:23)
[2019-02-15] MEDS: ALLOPURINOL 300 MG TABLET (FP) PO SCH (10:37)
--- NOTE | 2019-02-15 12:46 | PN ---
Progress Note (short form) - Note Progress Note: coverage for Dr Marquez seen in ICU No active bleeding , now on clear liquids, no abdominal pain Hgb 8 abd: soft ,non-tednder, no masses A> GI bleed--resolved R> advance diet as tolerated
[2019-02-15] MEDS ORDERED: POTASSIUM CHLORIDE ORAL LIQUID 20 MEQ/15 ML PO ONE ×2 (13:36→22:00)
[2019-02-15] MEDS ORDERED: SODIUM CHLORIDE 250 ML IV PRN (13:40)
--- NOTE | 2019-02-15 13:40 | PN ---
Progress Note, Physician History of Present Illness: Pt seen and examined at bedside. He is awake and alert. He does have shortness of breath. He is markedly improved from yesterday. He does agree to HD today. - Current Medication List Current Medications: Active Medications Allopurinol (Zyloprim -) 150 mg PO DAILY [facility] Last Admin: 02/15/19 10:37 Dose: 150 mg Chlorhexidine Gluconate (Hibiclens For Decolonization -) 1 applic TP [facility] Last Admin: 02/14/19 21:42 Dose: 1 applic Pantoprazole Sodium 80 mg/ (Sodium Chloride) 100 mls @ 10 mls/hr IVPB Q10H [facility] Last Admin: 02/15/19 10:17 Dose: 10 mls/hr Mupirocin (Bactroban Ointment (For Decolonization) -) 1 applic NS BID [facility] Stop: 02/19/19 09:59 Last Admin: 02/15/19 10:21 Dose: 1 applic Ondansetron HCl (Zofran Injection) 4 mg IVPUSH Q8H PRN PRN Reason: NAUSEA Potassium Chloride (Potassium Chloride Oral Liquid) 40 meq PO ONCE ONE Stop: 02/15/19 13:37 Potassium Chloride (Potassium Chloride Oral Liquid) 40 meq PO ONCE ONE Stop: 02/15/19 22:01 Ranolazine (Ranexa -) 500 mg PO BID [facility] Last Admin: 02/15/19 10:35 Dose: 500 mg Rosuvastatin Calcium (Crestor -) 5 mg PO [facility] Last Admin: 02/14/19 21:39 Dose: Not Given Sevelamer Carbonate (Renvela -) 800 mg PO TIDCM [facility] Last Admin: 02/15/19 13:32 Dose: 800 mg - Objective Vital Signs: Vital Signs Temperature 97.3 F L 02/15/19 10:00 Pulse Rate 49 L 02/15/19 12:00 Respiratory Rate 21 H 02/15/19 12:00 Blood Pressure 92/46 L 02/15/19 12:00 O2 Sat by Pulse Oximetry (%) 99 02/15/19 11:00 Constitutional: Yes: Calm Eyes: Yes: Conjunctiva Clear HENT: Yes: Atraumatic Cardiovascular: Yes: S1, S2 Respiratory: Yes: Diminished, On Nasal O2 Gastrointestinal: Yes: Soft Genitourinary: Yes: Incontinence Musculoskeletal: Yes: Muscle Weakness Edema: Yes Edema: LLE: 1+, RLE: 1+ Neurological: Yes: Oriented Psychiatric: Yes: Oriented Labs: CBC, BMP 02/15/19 05:30 02/15/19 05:30 INR, PTT INR 1.44 (0.83-1.09) H 02/15/19 05:30 - ....Imaging Chest X-ray: Report Reviewed Problem List - Problems (1) Acute on chronic diastolic (congestive) heart failure Code(s): I50.33 - ACUTE ON CHRONIC DIASTOLIC (CONGESTIVE) HEART FAILURE (2) Altered mental status Code(s): R41.82 - ALTERED MENTAL STATUS, UNSPECIFIED (3) ESRD (end stage renal disease) on dialysis Code(s): N18.6 - END STAGE RENAL DISEASE; Z99.2 - DEPENDENCE ON RENAL DIALYSIS Assessment/Plan Current Medications Generic Name Dose Route Start Last Admin Trade Name Freq PRN Reason Stop Dose Admin Allopurinol 150 mg 02/14/19 10:00 02/15/19 10:37 Zyloprim - PO 150 mg DAILY [facility] Administration Chlorhexidine Gluconate 1 applic 02/14/19 22:00 02/14/19 21:42 Hibiclens For Decolonization - TP 1 applic HS [facility] Administration Pantoprazole Sodium 80 mg/ 100 mls @ 10 mls/hr 02/14/19 17:45 02/15/19 10:17 Sodium Chloride IVPB 10 mls/hr Q10H [facility] Administration 8 MG/HR Midodrine 5 mg 02/15/19 14:00 Proamatine - PO TID [facility] Mupirocin 1 applic 02/14/19 10:00 02/15/19 10:21 Bactroban Ointment (For Decolonization) - NS 02/19/19 09:59 1 applic BID [facility] Administration Ondansetron HCl 4 mg 02/14/19 03:49 Zofran Injection IVPUSH Q8H PRN NAUSEA Potassium Chloride 40 meq 02/15/19 13:36 Potassium Chloride Oral Liquid PO 02/15/19 13:37 ONCE ONE Potassium Chloride 40 meq 02/15/19 22:00 Potassium Chloride Oral Liquid PO 02/15/19 22:01 ONCE ONE Ranolazine 500 mg 02/14/19 10:00 02/15/19 10:35 Ranexa - PO 500 mg BID [facility] Administration Rosuvastatin Calcium 5 mg 02/14/19 22:00 02/14/19 21:39 Crestor - PO Not Given HS [facility] Sevelamer Carbonate 800 mg 02/14/19 08:00 02/15/19 13:32 Renvela - PO 800 mg TIDCM [facility] Administration Impression 1. ESRD 2. CKD 3. CHF 4. hypotension 5. resp failure requiring bipap 6. a-fib 7. hld 8. bilateral pleural effusions 9. anemia 10. hypokalemia 11. coumadin tox Plan - hg is improved - will give epogen - will arrange for HD, family and pt agree - 3 k bath on hd - replace potassium - repeat labs in am - discussed with ICU team - increase midodrine dose
[2019-02-15] MEDS ORDERED: EPOETIN ALFA 10,000 UNIT/1 ML VIAL IVPUSH ONE (14:00)
[2019-02-15] MEDS: ALBUMIN HUMAN 25% 12.5 GM/50 ML VIAL IVPB SCH ×4 (14:20→16:50)
[2019-02-15 16:12] VITALS: BMI 23.9
[2019-02-15] MEDS ORDERED: MIDODRINE HCL 5 MG TABLET PO ONE (16:45)
[2019-02-15] MEDS ORDERED: SODIUM CHLORIDE 1,000 ML IV STA (22:01)
[2019-02-15] MEDS: ROSUVASTATIN CA 5 MG TABLET (FP) PO SCH (22:13)
[2019-02-15] MEDS: CHLORHEXIDINE GLUCONATE 4% CLEANSER FOR DECOLONIZATION TP SCH (22:13)
[2019-02-16] MEDS: PANTOPRAZOLE SODIUM 80 MG in SODIUM CHLORIDE 100 ML IVPB SCH ×3 (00:28→20:40)
[2019-02-16 06:52] LABS: BASO % 0.6 % (0-2.0); EOS % 1.7 % (0-4.5); HEMATOCRIT 24.3 % (35.4-49); HEMOGLOBIN 8.1 GM/dL (11.7-16.9); MCH 31.5 pg (25.7-33.7); MCHC 33.2 g/dl (32.0-35.9); MEAN CELL VOLUME 94.8 fl (80-96); MEAN PLT VOLUME 8.1 fl (7.5-11.1); MONO % 9.3 % (3.8-10.2); NEUT % 78.4 % (42.8-82.8); PLATELET COUNT 62 K/MM3 (134-434); RBC 2.56 M/mm3 (4.00-5.60); RDW 18.9 % (11.9-15.9); WHITE BLOOD COUNT 5.9 K/mm3 (4.0-10.0)
[2019-02-16 07:24] LABS: ANION GAP 7 MMOL/L (8-16); BLOOD UREA NITROGEN 30 mg/dL (7-18); CALCIUM 7.6 mg/dL (8.5-10.1); CHLORIDE 105 mmol/L (98-107); CO2 31 mmol/L (21-32); CREATININE 3.5 mg/dL (0.55-1.3); GLUCOSE,RANDOM 111 mg/dL (74-106); MAGNESIUM 1.7 mg/dL (1.8-2.4); PHOSPHOROUS 3.7 mg/dL (2.5-4.9); POTASSIUM 3.5 mmol/L (3.5-5.1); SODIUM 142 mmol/L (136-145)
[2019-02-16 07:42] LABS: INR 2.34 (0.83-1.09); PROTHROMBIN TIME (PATIENT) 27.8 SEC (9.7-13.0)
[2019-02-16] MEDS: SEVELAMER CARBONATE 800 MG TAB (FP) PO SCH ×3 (08:47→18:29)
[2019-02-16] MEDS: ALLOPURINOL 300 MG TABLET (FP) PO SCH (09:09)
[2019-02-16] MEDS: RANOLAZINE E.R. 500 MG TABLET (FP) PO SCH ×2 (09:09→22:43)
--- NOTE | 2019-02-16 09:10 | PN ---
Progress Note (short form) - Note Progress Note: Seen and examined in ICU -iHD yesterday (-1.5) -hypotensive overnight required 750mg -increased SOB placed on NRB overnight, now back on NC -met with family re GOC: considering home vs in patient hospice Current Medications Allopurinol (Zyloprim -) 150 mg PO DAILY [facility] Last Admin: 02/15/19 10:37 Dose: 150 mg Chlorhexidine Gluconate (Hibiclens For Decolonization -) 1 applic TP HS [facility] Last Admin: 02/15/19 22:13 Dose: 1 applic Pantoprazole Sodium 80 mg/ (Sodium Chloride) 100 mls @ 10 mls/hr IVPB Q10H [facility] Last Admin: 02/16/19 00:28 Dose: 10 mls/hr Sodium Chloride (Normal Saline -) 250 mls @ 3,000 mls/hr IV PRN PRN PRN Reason: Hypotension during Dialysis Stop: 02/16/19 13:40 Midodrine (Proamatine -) 5 mg PO TID-MID [facility] Mupirocin (Bactroban Ointment (For Decolonization) -) 1 applic NS BID [facility] Stop: 02/19/19 09:59 Last Admin: 02/15/19 21:22 Dose: 1 applic Ondansetron HCl (Zofran Injection) 4 mg IVPUSH Q8H PRN PRN Reason: NAUSEA Ranolazine (Ranexa -) 500 mg PO BID [facility] Last Admin: 02/15/19 21:23 Dose: 500 mg Rosuvastatin Calcium (Crestor -) 5 mg PO HS [facility] Last Admin: 02/15/19 22:13 Dose: 5 mg Sevelamer Carbonate (Renvela -) 800 mg PO TIDCM [facility] Last Admin: 02/16/19 08:47 Dose: 800 mg Vital Signs Period Temp Pulse Resp BP Sys/Ascencio Pulse Ox Last 24 Hr 97.2 F-98.8 F 49-72 14-31 81-109/33-55 96-100 Intake & Output 02/13/19 02/14/19 02/15/19 02/16/19 23:59 23:59 23:59 23:59 Intake Total 630 1580 120 Output Total 0 Balance 630 1580 120 Weight 68.039 kg 68.039 kg 75.75 kg 76.657 kg Exam: General: awake, alert w/o distress HEENT: PERRL CV: NSR Pulm: diminished RLL otherwise CTA Abd: SNTND +BS Ext: WWP, no edema Neuro: AOx3, JETER CBC, BMP 02/16/19 05:30 02/16/19 05:30 ASSESSMENT AND PLAN: Acute Hypoxic Respiratory Failure Most likely UGIB Anemia/Thrombocytopenia Acute on Chronic Diastolic Heart Failure Atrial Fibrillation Supratherapeutic INR CAD s/p CABG Mitral Regurgitation COPD ESRD on HD - monitor H/H, coags - transfuse as needed for goal hgb >7.0 - holding anticoagulation - protonix drip 72hr then BID dosing - GI following: no EGD/c-scope per family - advance diet - HD per renal, on going GOC discussions about continuing therapy: discussing home vs hospice care - O2 to keep SpO2 >90% - hold antihypertensives - aspiration precautions - rate control - DNR/DNI - stable for floor transfer critical care time spent in reviewing chart, evaluating patient and formulating plan 35 min Sae FLORES
[2019-02-16] MEDS: MUPIROCIN 2% TOPICAL OINTMENT FOR DECOLONIZATION NS SCH ×2 (09:33→13:08)
[2019-02-16] MEDS ORDERED: MIDODRINE HCL 5 MG TABLET PO SCH (10:00)
--- NOTE | 2019-02-16 10:10 | PN ---
Progress Note, Physician History of Present Illness: Patient is an 88 year old male with underlying history of CAD s/p CABG (JHAVERI to mLAD, SVG to RPDA), s/p PCI/LUIS EDUARDO to LAD, persistent AF on Coumadin, diastolic dysfunction with history of acute on chronic heart failure, HTN, hypercholesterolemia, carotid stenosis, ESRD on HF via PC who presents with worsening shortness of breath, lethargy, hypotension in context of supratherapeutic INR, acute blood loss anemia, guaiac positive stools and melena. Patient received 2 units PRBC, 2 units FFP. Recent hospitalization 2018 includes: b/l pleural effusion that required rt chest tube; cardiogenic shock placed on dobutamine/levophed required, currently maintained on midodrine. Renal failure requiring HD, now with permacath. Dialysis TTS. - Current Medication List Current Medications: Active Medications Allopurinol (Zyloprim -) 150 mg PO DAILY [facility] Last Admin: 02/16/19 09:09 Dose: 150 mg Chlorhexidine Gluconate (Hibiclens For Decolonization -) 1 applic TP HS [facility] Last Admin: 02/15/19 22:13 Dose: 1 applic Pantoprazole Sodium 80 mg/ (Sodium Chloride) 100 mls @ 10 mls/hr IVPB Q10H [facility] Last Admin: 02/16/19 09:33 Dose: 10 mls/hr Sodium Chloride (Normal Saline -) 250 mls @ 3,000 mls/hr IV PRN PRN PRN Reason: Hypotension during Dialysis Stop: 02/16/19 13:40 Midodrine (Proamatine -) 5 mg PO TID-MID [facility] Last Admin: 02/16/19 09:08 Dose: 5 mg Mupirocin (Bactroban Ointment (For Decolonization) -) 1 applic NS BID [facility] Stop: 02/19/19 09:59 Last Admin: 02/16/19 09:33 Dose: 1 applic Ondansetron HCl (Zofran Injection) 4 mg IVPUSH Q8H PRN PRN Reason: NAUSEA Ranolazine (Ranexa -) 500 mg PO BID [facility] Last Admin: 02/16/19 09:09 Dose: 500 mg Rosuvastatin Calcium (Crestor -) 5 mg PO HS [facility] Last Admin: 02/15/19 22:13 Dose: 5 mg Sevelamer Carbonate (Renvela -) 800 mg PO TIDCM [facility] Last Admin: 02/16/19 08:47 Dose: 800 mg - Objective Vital Signs: Vital Signs Temperature 97.9 F 02/16/19 06:00 Pulse Rate 60 02/16/19 08:00 Respiratory Rate 14 02/16/19 08:00 Blood Pressure 93/46 L 02/16/19 08:00 O2 Sat by Pulse Oximetry (%) 100 02/16/19 08:36 Eyes: Yes: WNL, Conjunctiva Clear, EOM Intact HENT: Yes: WNL, Atraumatic, Normocephalic Neck: Yes: WNL, Supple, Trachea Midline Cardiovascular: Yes: WNL, Regular Rate and Rhythm Respiratory: Yes: WNL, Regular, CTA Bilaterally Gastrointestinal: Yes: WNL, Normal Bowel Sounds Genitourinary: Yes: WNL Musculoskeletal: Yes: WNL Extremities: Yes: WNL Edema: No Integumentary: Yes: WNL Neurological: Yes: WNL, Alert, Oriented ...Motor Strength: WNL Psychiatric: Yes: WNL Labs: CBC, BMP 02/16/19 05:30 02/16/19 05:30 INR, PTT INR 2.34 (0.83-1.09) H 02/16/19 05:30 Assessment/Plan 02/14/2019 Echo: Normal LV size and low normal LV fxn LVEF 50%, mod dilated with mod-severe decrease RV fxn, D shaped septum from RV pressure overload, mild AUTUMN, mild MR, severe TR, RVSP 40-50 mmHg, no pericardial effusion 12/31/2018 Echo: Normal LV size and fxn LVEF 60%, mod dilated RV with mild decreased RV fxn, mild-mod AUTUMN, mild MR, mod TR RVSP 31 mmHg 1. Acute Hypoxic Respiratory Failure 2. Acute blood loss anemia referable to GI bleed in context of supratherapeutic INR 3. Chronic diastolic heart failure with pleural effusion post left pigtail, cor pulmonale 4. CAD post CABG/PCI (stent) evidence of demand ischemia angina pectoris 5. Persistent atrial fibrillation [id number] score of 5 on Coumadin therapy with supratherapeutic INR 6. Toxic metabolic encephelopathy 7. Hypercholesterolemia 8. MR mild to moderate in severity 9. TR severe in severity 10. Carotid stenosis, moderate in severity 11. COPD 12. ESRD on HD via PC with hypokalemia 13. Anemia and thrombocytopenia PLAN: 1. Transfuse to maintain Hgb>8.0, anticoagulation reversed, anticoagulation to be held pending hemostasis, trend trops to document peak 2. GI evaluation, IV Protonix 3. Continue Crestor 5 mg QHS, O2 to keep SpO2 >90%, midodrine 5 bid with uptitration as hemodynamics 4. HD via PC per renal service, replete K cc time spent [address] Ruth
--- NOTE | 2019-02-16 10:58 | PN ---
Progress Note, Physician Chief Complaint: Mr Aleman says he feels bad but cannot tell me why. Denies cp, sob, n/v, abdominal pain. Cannot tell me how he is feeling aside from "bad" and "not right ". - Current Medication List Current Medications: Active Medications Allopurinol (Zyloprim -) 150 mg PO DAILY [facility] Last Admin: 02/16/19 09:09 Dose: 150 mg Chlorhexidine Gluconate (Hibiclens For Decolonization -) 1 applic TP HS [facility] Last Admin: 02/15/19 22:13 Dose: 1 applic Pantoprazole Sodium 80 mg/ (Sodium Chloride) 100 mls @ 10 mls/hr IVPB Q10H [facility] Last Admin: 02/16/19 09:33 Dose: 10 mls/hr Sodium Chloride (Normal Saline -) 250 mls @ 3,000 mls/hr IV PRN PRN PRN Reason: Hypotension during Dialysis Stop: 02/16/19 13:40 Midodrine (Proamatine -) 5 mg PO TID-MID [facility] Last Admin: 02/16/19 09:08 Dose: 5 mg Mupirocin (Bactroban Ointment (For Decolonization) -) 1 applic NS BID [facility] Stop: 02/19/19 09:59 Last Admin: 02/16/19 09:33 Dose: 1 applic Ondansetron HCl (Zofran Injection) 4 mg IVPUSH Q8H PRN PRN Reason: NAUSEA Ranolazine (Ranexa -) 500 mg PO BID [facility] Last Admin: 02/16/19 09:09 Dose: 500 mg Rosuvastatin Calcium (Crestor -) 5 mg PO [facility] Last Admin: 02/15/19 22:13 Dose: 5 mg Sevelamer Carbonate (Renvela -) 800 mg PO TIDCM [facility] Last Admin: 02/16/19 08:47 Dose: 800 mg - Objective Vital Signs: Vital Signs Temperature 36.6 C 02/16/19 10:00 Pulse Rate 58 L 02/16/19 10:00 Respiratory Rate 23 H 02/16/19 10:00 Blood Pressure 97/44 L 02/16/19 10:00 O2 Sat by Pulse Oximetry (%) 100 02/16/19 08:36 Constitutional: Yes: Well Nourished, No Distress, Calm Cardiovascular: Yes: Regular Rate and Rhythm. No: Gallop, Murmur, Rub Respiratory: Yes: Regular, On Nasal O2, Rhonchi (bilateral, R>L). No: CTA Bilaterally, Rales, Wheezes Gastrointestinal: Yes: Normal Bowel Sounds, Distention. No: Tenderness Extremities: Yes: WNL Edema: No Labs: CBC, BMP 02/16/19 05:30 02/16/19 05:30 INR, PTT INR 2.34 (0.83-1.09) H 02/16/19 05:30 Problem List - Problems (1) Acute blood loss anemia Code(s): D62 - ACUTE POSTHEMORRHAGIC ANEMIA (2) Warfarin toxicity Code(s): T45.511A - POISONING BY ANTICOAGULANTS, ACCIDENTAL, INIT Qualifiers: Encounter type: initial encounter Injury intent: accidental or unintentional Qualified Code(s): T45.511A - Poisoning by anticoagulants, accidental (unintentional), initial encounter (3) Acute on chronic diastolic (congestive) heart failure Code(s): I50.33 - ACUTE ON CHRONIC DIASTOLIC (CONGESTIVE) HEART FAILURE (4) Altered mental status Code(s): R41.82 - ALTERED MENTAL STATUS, UNSPECIFIED (5) ESRD (end stage renal disease) on dialysis Code(s): N18.6 - END STAGE RENAL DISEASE; Z99.2 - DEPENDENCE ON RENAL DIALYSIS (6) GI bleed Code(s): K92.2 - GASTROINTESTINAL HEMORRHAGE, UNSPECIFIED Qualifiers: GI bleed type/associated pathology: melena Qualified Code(s): K92.1 - Melena (7) Hypokalemia Code(s): E87.6 - HYPOKALEMIA (8) CAD (coronary artery disease) Code(s): I25.10 - ATHSCL HEART DISEASE OF [place] CORONARY ARTERY W/O ANG PCTRS Qualifiers: Coronary Disease-Associated Artery/Lesion type: [place] artery [place] vs. transplanted heart: [place] heart Associated angina: without angina Qualified Code(s): I25.10 - Atherosclerotic heart disease of [place] coronary artery without angina pectoris (9) Hypotension Code(s): I95.9 - HYPOTENSION, UNSPECIFIED Qualifiers: Hypotension type: other hypotension type Qualified Code(s): I95.89 - Other hypotension (10) Atrial fibrillation Code(s): I48.91 - UNSPECIFIED ATRIAL FIBRILLATION Qualifiers: Atrial fibrillation type: permanent Qualified Code(s): I48.2 - Chronic atrial fibrillation (11) Hyperlipidemia Code(s): E78.5 - HYPERLIPIDEMIA, UNSPECIFIED Qualifiers: Hyperlipidemia type: pure hypercholesterolemia Qualified Code(s): E78.00 - Pure hypercholesterolemia, unspecified; E78.0 - Pure hypercholesterolemia Assessment/Plan -patient says feeling bad but cannot explain -case d/w ID, does not appear infection -did have renal diet this am, may be having difficulty tolerating as stomach was distended -monitor, may need to decrease to full liquid or back to clears -H/H decreased today but above 7 -will check cbc tonight as well to make sure does not need further transfusions -s/p HD yesterday -potassium normal today -INR increased today, unclear as off of coumadin -will give vitamin k 1mg IV x1 -replace magnesium -continue protonix gtt -continue current management 32 minutes in critical care time spent with patient
[2019-02-16] MEDS ORDERED: PHYTONADIONE 10 MG/1 ML AMP IVPB ONE ×2 (10:59→12:00)
[2019-02-16] MEDS ORDERED: ONDANSETRON 4 MG/2 ML VIAL IVPUSH PRN (11:51)
[2019-02-16] MEDS ORDERED: MAGNESIUM 1GM/D5W - 1 GM/100 ML IVPB IVPB ONE ×2 (12:00→14:00)
[2019-02-16] MEDS ORDERED: MAGNESIUM SULF 50% (8.12 MEQ/2 ML-1 GM VIAL) IVPB ONE (14:15)
[2019-02-16] MEDS: MIDODRINE HCL 5 MG TABLET PO SCH ×2 (14:20→18:29)
--- NOTE | 2019-02-16 16:07 | PN ---
Progress Note, Physician History of Present Illness: Pt seen and examined at bedside. He is now in the medical sousa. He was hypotensive overnight and required fluid boluses. - Current Medication List Current Medications: Active Medications Allopurinol (Zyloprim -) 150 mg PO DAILY JAYCE Pantoprazole Sodium 80 mg/ (Sodium Chloride) 100 mls @ 10 mls/hr IVPB Q10H JAYCE Midodrine (Proamatine -) 5 mg PO TID-MID JAYCE Last Admin: 02/16/19 14:20 Dose: 5 mg Ondansetron HCl (Zofran Injection) 4 mg IVPUSH Q8H PRN PRN Reason: NAUSEA Ranolazine (Ranexa -) 500 mg PO BID JAYCE Rosuvastatin Calcium (Crestor -) 5 mg PO HS JAYCE Sevelamer Carbonate (Renvela -) 800 mg PO TIDCM [facility] Last Admin: 02/16/19 14:20 Dose: 800 mg - Objective Vital Signs: Vital Signs Temperature 97.9 F 02/16/19 10:00 Pulse Rate 58 L 02/16/19 10:00 Respiratory Rate 23 H 02/16/19 10:00 Blood Pressure 107/44 L 02/16/19 14:00 O2 Sat by Pulse Oximetry (%) 97 02/16/19 11:04 Constitutional: Yes: Calm Eyes: Yes: Conjunctiva Clear HENT: Yes: Atraumatic Neck: Yes: Supple Cardiovascular: Yes: S1, S2 Respiratory: Yes: On Nasal O2 Gastrointestinal: Yes: Normal Bowel Sounds, Soft Genitourinary: Yes: Incontinence Musculoskeletal: Yes: Muscle Weakness Edema: Yes Edema: LLE: 1+, RLE: 1+ Neurological: Yes: Oriented Psychiatric: Yes: Oriented Labs: CBC, BMP 02/16/19 05:30 02/16/19 05:30 INR, PTT INR 2.34 (0.83-1.09) H 02/16/19 05:30 Problem List - Problems (1) Acute on chronic diastolic (congestive) heart failure Code(s): I50.33 - ACUTE ON CHRONIC DIASTOLIC (CONGESTIVE) HEART FAILURE (2) Altered mental status Code(s): R41.82 - ALTERED MENTAL STATUS, UNSPECIFIED (3) ESRD (end stage renal disease) on dialysis Code(s): N18.6 - END STAGE RENAL DISEASE; Z99.2 - DEPENDENCE ON RENAL DIALYSIS Assessment/Plan Current Medications Generic Name Dose Route Start Last Admin Trade Name Freq PRN Reason Stop Dose Admin Allopurinol 150 mg 02/17/19 10:00 Zyloprim - PO DAILY JAYCE Pantoprazole Sodium 80 mg/ 100 mls @ 10 mls/hr 02/16/19 19:45 Sodium Chloride IVPB Q10H JAYCE 8 MG/HR Midodrine 5 mg 02/16/19 14:00 02/16/19 14:20 Proamatine - PO 5 mg TID-MID JAYCE Administration Ondansetron HCl 4 mg 02/16/19 11:51 Zofran Injection IVPUSH Q8H PRN NAUSEA Ranolazine 500 mg 02/16/19 22:00 Ranexa - PO BID JAYCE Rosuvastatin Calcium 5 mg 02/16/19 22:00 Crestor - PO HS JAYCE Sevelamer Carbonate 800 mg 02/16/19 12:00 02/16/19 14:20 Renvela - PO 800 mg TIDCM JAYCE Administration Impression 1. ESRD 2. CKD 3. CHF 4. hypotension 5. resp failure requiring bipap 6. a-fib 7. hld 8. bilateral pleural effusions 9. anemia 10. hypokalemia 11. coumadin tox Plan - pt had HD yesterday - family are still discussing GOC - s/p prbc transfusion - cont midodrine - prognosis poor
[2019-02-16 16:40] LABS: HEMATOCRIT 23.2 % (35.4-49); HEMOGLOBIN 7.5 GM/dL (11.7-16.9); MCH 30.8 pg (25.7-33.7); MCHC 32.1 g/dl (32.0-35.9); MEAN CELL VOLUME 95.8 fl (80-96); MEAN PLT VOLUME 8.5 fl (7.5-11.1); PLATELET COUNT 67 K/MM3 (134-434); RBC 2.42 M/mm3 (4.00-5.60); RDW 18.7 % (11.9-15.9); WHITE BLOOD COUNT 5.2 K/mm3 (4.0-10.0)
[2019-02-16] MEDS ORDERED: MUPIROCIN 2% TOPICAL OINTMENT FOR DECOLONIZATION NS SCH (22:00)
[2019-02-16] MEDS ORDERED: ROSUVASTATIN CA 5 MG TABLET (FP) PO SCH (22:00)
[2019-02-16] MEDS ORDERED: CHLORHEXIDINE GLUCONATE 4% CLEANSER FOR DECOLONIZATION TP SCH (22:00)
[2019-02-16] MEDS ORDERED: PT OWN MED DRAWER 7, Y5N ONE (22:18)
[2019-02-17] MEDS ORDERED: PT OWN MED DRAWER 7, Y5N ONE ×2 (05:24→16:47)
[2019-02-17] MEDS: PANTOPRAZOLE SODIUM 80 MG in SODIUM CHLORIDE 100 ML IVPB SCH (05:38)
[2019-02-17 07:52] LABS: BASO % 0.8 % (0-2.0); EOS % 0.9 % (0-4.5); HEMATOCRIT 24.1 % (35.4-49); HEMOGLOBIN 7.8 GM/dL (11.7-16.9); LYMPH % 11.7 % (8-40); MCH 31.2 pg (25.7-33.7); MCHC 32.5 g/dl (32.0-35.9); MEAN PLT VOLUME 8.4 fl (7.5-11.1); MONO % 10.5 % (3.8-10.2); NEUT % 76.1 % (42.8-82.8); PLATELET COUNT 73 K/MM3 (134-434); RBC 2.51 M/mm3 (4.00-5.60); RDW 18.2 % (11.9-15.9); WHITE BLOOD COUNT 4.2 K/mm3 (4.0-10.0)
[2019-02-17 08:15] LABS: ANION GAP 8 MMOL/L (8-16); BLOOD UREA NITROGEN 40 mg/dL (7-18); CALCIUM 8.5 mg/dL (8.5-10.1); CHLORIDE 105 mmol/L (98-107); CO2 28 mmol/L (21-32); CREATININE 4.5 mg/dL (0.55-1.3); GLUCOSE,RANDOM 97 mg/dL (74-106); MAGNESIUM 2.3 mg/dL (1.8-2.4); PHOSPHOROUS 2.8 mg/dL (2.5-4.9); SODIUM 141 mmol/L (136-145)
[2019-02-17 08:19] LABS: INR 1.89 (0.83-1.09); PROTHROMBIN TIME (PATIENT) 22.5 SEC (9.7-13.0)
--- NOTE | 2019-02-17 09:40 | PN ---
Progress Note (short form) - Note Progress Note: Hospitalist to document today. Lethargic not really responding to me in any meaningful manner. After a detailed discussion with the it was decided that the goals of care include only comfort care. IV MS for SOB and pain. No dialysis and No lab tests. We will convert To MS drip depending on his response to IV MS 1 mg so that his comfort will be consistent and not be marked by periods of SOB with comfortable breathing.
--- NOTE | 2019-02-17 09:50 | PN ---
Progress Note (short form) - Note Progress Note: PULMONARY Lethargic, mumbles but not answering questions. Vital Signs Period Temp Pulse Resp BP Sys/Ascencio Pulse Ox Last 24 Hr 97.2 F-98.3 F 55-61 18-23 90-107/40-61 97-98 Gen: lethargic, tachypneic with shallow breaths Heart: RRR Lung: poor effort Abd: soft, edematous Ext: no edema CBC, BMP 02/17/19 06:30 02/17/19 06:30 Active Medications Allopurinol (Zyloprim -) 150 mg PO DAILY [facility] Pantoprazole Sodium 80 mg/ (Sodium Chloride) 100 mls @ 10 mls/hr IVPB Q10H [facility] Last Admin: 02/17/19 05:38 Dose: 10 mls/hr Midodrine (Proamatine -) 5 mg PO TID-MID [facility] Last Admin: 02/16/19 18:29 Dose: 5 mg Ondansetron HCl (Zofran Injection) 4 mg IVPUSH Q8H PRN PRN Reason: NAUSEA Potassium Chloride (Potassium Chloride Oral Liquid) 40 meq PO BID [facility] Stop: 02/17/19 22:01 Ranolazine (Ranexa -) 500 mg PO BID [facility] Last Admin: 02/16/19 22:43 Dose: 500 mg Rosuvastatin Calcium (Crestor -) 5 mg PO HS [facility] Last Admin: 02/16/19 22:43 Dose: 5 mg Sevelamer Carbonate (Renvela -) 800 mg PO TIDCM [facility] Last Admin: 02/16/19 18:29 Dose: 800 mg A/P Acute Hypoxic Respiratory Failure r/o GI Bleed Anemia/Thrombocytopenia Acute on Chronic Diastolic Heart Failure Atrial Fibrillation Supratherapeutic INR CAD s/p CABG Mitral Regurgitation COPD ESRD on HD - monitor H/H, coags - transfuse as needed - holding anticoagulation - protonix - HD per renal - O2 to keep SpO2 >90% - hold antihypertensives - aspiration precautions - rate control - pt DNR/DNI, comfort measures would be appropriate at this time
[2019-02-17] MEDS ORDERED: ALLOPURINOL 300 MG TABLET (FP) PO SCH (10:00)
[2019-02-17] MEDS ORDERED: POTASSIUM CHLORIDE ORAL LIQUID 20 MEQ/15 ML PO SCH (10:00)
[2019-02-17] MEDS ORDERED: morphine CARPU-JECT 2 MG/1 ML DISP.SYRIN IVPUSH PRN (11:39)
--- NOTE | 2019-02-17 11:47 | PN ---
Progress Note, Physician History of Present Illness: Lethargic, poorly responsive. - Current Medication List Current Medications: Active Medications Allopurinol (Zyloprim -) 150 mg PO DAILY [facility] Pantoprazole Sodium 80 mg/ (Sodium Chloride) 100 mls @ 10 mls/hr IVPB Q10H [facility] Last Admin: 02/17/19 05:38 Dose: 10 mls/hr Midodrine (Proamatine -) 5 mg PO TID-MID [facility] Last Admin: 02/16/19 18:29 Dose: 5 mg Morphine Sulfate (Morphine Injection -) 1 mg IVPUSH Q3H PRN PRN Reason: respiratory distress Ondansetron HCl (Zofran Injection) 4 mg IVPUSH Q8H PRN PRN Reason: NAUSEA Potassium Chloride (Potassium Chloride Oral Liquid) 40 meq PO BID [facility] Stop: 02/17/19 22:01 Ranolazine (Ranexa -) 500 mg PO BID [facility] Last Admin: 02/16/19 22:43 Dose: 500 mg Rosuvastatin Calcium (Crestor -) 5 mg PO HS [facility] Last Admin: 02/16/19 22:43 Dose: 5 mg Sevelamer Carbonate (Renvela -) 800 mg PO TIDCM [facility] Last Admin: 02/16/19 18:29 Dose: 800 mg - Objective Vital Signs: Vital Signs Temperature 97.4 F L 02/17/19 07:01 Pulse Rate 55 L 02/17/19 07:01 Respiratory Rate 20 02/17/19 07:01 Blood Pressure 102/44 L 02/17/19 07:01 O2 Sat by Pulse Oximetry (%) 98 02/17/19 08:01 Constitutional: Yes: No Distress, Calm, Thin Neck: Yes: Supple Cardiovascular: Yes: Pulse Irregular Respiratory: Yes: Regular, Diminished, On Nasal O2 Gastrointestinal: Yes: Soft, Hypoactive Bowel Sounds Edema: No Labs: CBC, BMP 02/17/19 06:30 02/17/19 06:30 INR, PTT INR 1.89 (0.83-1.09) H 02/17/19 06:30 Problem List - Problems (1) Cor pulmonale (chronic) Code(s): I27.81 - COR PULMONALE (CHRONIC) (2) ESRD (end stage renal disease) on dialysis Code(s): N18.6 - END STAGE RENAL DISEASE; Z99.2 - DEPENDENCE ON RENAL DIALYSIS (3) GI bleed Code(s): K92.2 - GASTROINTESTINAL HEMORRHAGE, UNSPECIFIED Qualifiers: GI bleed type/associated pathology: melena Qualified Code(s): K92.1 - Melena (4) Hx of CABG Code(s): Z95.1 - PRESENCE OF AORTOCORONARY BYPASS GRAFT (5) Warfarin toxicity Code(s): T45.511A - POISONING BY ANTICOAGULANTS, ACCIDENTAL, INIT Qualifiers: Encounter type: initial encounter Injury intent: accidental or unintentional Qualified Code(s): T45.511A - Poisoning by anticoagulants, accidental (unintentional), initial encounter (6) Anemia Code(s): D64.9 - ANEMIA, UNSPECIFIED Qualifiers: Anemia type: unspecified type Qualified Code(s): D64.9 - Anemia, unspecified (7) Elevated INR Code(s): R79.1 - ABNORMAL COAGULATION PROFILE (8) Hypotension Code(s): I95.9 - HYPOTENSION, UNSPECIFIED Qualifiers: Hypotension type: other hypotension type Qualified Code(s): I95.89 - Other hypotension (9) Pulmonary hypertension Code(s): I27.2 - OTHER SECONDARY PULMONARY HYPERTENSION * DO NOT USE * (10) Status post insertion of drug-eluting stent into left anterior descending ( LAD) artery Code(s): Z95.5 - PRESENCE OF CORONARY ANGIOPLASTY IMPLANT AND GRAFT (11) Subendocardial ischemia Code(s): I24.8 - OTHER FORMS OF ACUTE ISCHEMIC HEART DISEASE (12) Hyperlipidemia Code(s): E78.5 - HYPERLIPIDEMIA, UNSPECIFIED Qualifiers: Hyperlipidemia type: pure hypercholesterolemia Qualified Code(s): E78.00 - Pure hypercholesterolemia, unspecified; E78.0 - Pure hypercholesterolemia Assessment/Plan 02/14/2019 Echo: Normal LV size and low normal LV fxn LVEF 50%, mod dilated with mod-severe decrease RV fxn, D shaped septum from RV pressure overload, mild AUTUMN, mild MR, severe TR, RVSP 40-50 mmHg, no pericardial effusion 12/31/2018 Echo: Normal LV size and fxn LVEF 60%, mod dilated RV with mild decreased RV fxn, mild-mod AUTUMN, mild MR, mod TR RVSP 31 mmHg 1. Acute Hypoxic Respiratory Failure 2. Acute blood loss anemia referable to GI bleed in context of supratherapeutic INR 3. Chronic diastolic heart failure with pleural effusion post left pigtail, cor pulmonale 4. CAD post CABG/PCI (stent) evidence of demand ischemia angina pectoris 5. Persistent atrial fibrillation [id number] score of 5 on Coumadin therapy with supratherapeutic INR 6. Toxic metabolic encephelopathy 7. Hypercholesterolemia 8. MR mild to moderate in severity 9. TR severe in severity 10. Carotid stenosis, moderate in severity 11. COPD 12. ESRD on HD via PC with hypokalemia 13. Anemia and thrombocytopenia PLAN: 1. Transfuse to maintain Hgb>8.0, anticoagulation reversed, anticoagulation to be held pending hemostasis, trops have peaked 2. GI evaluation, IV Protonix 3. Continue Crestor 5 mg QHS, Ranexa 500 bid, O2 to keep SpO2 >90%, midodrine 5 tid with uptitration as hemodynamics 4. HD via PC per renal service, replete K 5. Pt DNR/DNI, comfort measures would be appropriate at this time
--- NOTE | 2019-02-17 11:53 | PN.GI ---
GI Progress Note Subjective: GI NOte: Cliff has again become lethargic and noncommunicative today. His nurse reports that there is no overt bleeding. Palliative care consulting - Objective Vital Signs: Vital Signs Temperature 97.4 F L 02/17/19 07:01 Pulse Rate 55 L 02/17/19 07:01 Respiratory Rate 20 02/17/19 07:01 Blood Pressure 102/44 L 02/17/19 07:01 O2 Sat by Pulse Oximetry (%) 98 02/17/19 08:01 Laboratory Tests 02/14/19 02/15/19 02/15/19 13:23 05:30 05:30 Hgb 7.2 L 8.8 L Hct 21.9 L BUN Creatinine Total Bilirubin 0.9 02/16/19 02/16/19 02/17/19 05:30 16:25 06:30 Hgb 8.1 L 7.5 L 7.8 L Hct BUN Creatinine Total Bilirubin 02/17/19 06:30 Hgb Hct BUN 40 H Creatinine 4.5 H Total Bilirubin Constitutional: Other (Lethargic) ...Auscultate: Yes: Hypoactive Bowel Sounds ...Palpate: Yes: Soft Labs: CBC, BMP 02/17/19 06:30 02/17/19 06:30 INR, PTT INR 1.89 (0.83-1.09) H 02/17/19 06:30 Assessment/Plan Impression: 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 Cannot exclude alternate bleeding etiologies such as ulcers, erosive GERD or gastritis, ischemic colitis, diverticuli or neoplasms etc Plan: Family requested no endoscopic intervention. Will honor Transfuse as needed Will switch to PPI BID Problem List - Problems (1) Warfarin toxicity Code(s): T45.511A - POISONING BY ANTICOAGULANTS, ACCIDENTAL, INIT Qualifiers: Encounter type: initial encounter Injury intent: accidental or unintentional Qualified Code(s): T45.511A - Poisoning by anticoagulants, accidental (unintentional), initial encounter (2) GI bleed Code(s): K92.2 - GASTROINTESTINAL HEMORRHAGE, UNSPECIFIED Qualifiers: GI bleed type/associated pathology: melena Qualified Code(s): K92.1 - Melena (3) Altered mental status Code(s): R41.82 - ALTERED MENTAL STATUS, UNSPECIFIED (4) History of right hemicolectomy Code(s): Z90.49 - ACQUIRED ABSENCE OF OTHER SPECIFIED PARTS OF DIGESTIVE TRACT (5) Colon polyp Code(s): K63.5 - POLYP OF COLON (6) Diverticulosis Code(s): K57.90 - DVRTCLOS OF INTEST, PART UNSP, W/O PERF OR ABSCESS W/O BLEED (7) Constipation Code(s): K59.00 - CONSTIPATION, UNSPECIFIED (8) ESRD (end stage renal disease) on dialysis Code(s): N18.6 - END STAGE RENAL DISEASE; Z99.2 - DEPENDENCE ON RENAL DIALYSIS (9) Hx of CABG Code(s): Z95.1 - PRESENCE OF AORTOCORONARY BYPASS GRAFT (10) Anemia Code(s): D64.9 - ANEMIA, UNSPECIFIED Qualifiers: Anemia type: unspecified type Qualified Code(s): D64.9 - Anemia, unspecified (11) Atrial fibrillation Code(s): I48.91 - UNSPECIFIED ATRIAL FIBRILLATION Qualifiers: Atrial fibrillation type: permanent Qualified Code(s): I48.2 - Chronic atrial fibrillation (12) Congestive heart failure Code(s): I50.9 - HEART FAILURE, UNSPECIFIED Qualifiers: Heart failure type: unspecified Heart failure chronicity: acute on chronic Qualified Code(s): I50.9 - Heart failure, unspecified
[2019-02-17] MEDS ORDERED: morphine SULFATE 4 MG/ML VIAL IVPUSH PRN (14:29)
[2019-02-17] MEDS: RANOLAZINE E.R. 500 MG TABLET (FP) PO SCH (14:31)
[2019-02-17] MEDS: SEVELAMER CARBONATE 800 MG TAB (FP) PO SCH (14:31)
[2019-02-17] MEDS: MIDODRINE HCL 5 MG TABLET PO SCH ×2 (14:31→14:32)
--- NOTE | 2019-02-17 15:12 | PN ---
Progress Note, Physician History of Present Illness: Pt seen and examined at bedside. He is awake. He is having respiratory distress. His family are at bedside. Pt will be on hospice care and they want to stop HD. - Current Medication List Current Medications: Active Medications Allopurinol (Zyloprim -) 150 mg PO DAILY [facility] Last Admin: 02/17/19 14:32 Dose: Not Given Midodrine (Proamatine -) 5 mg PO TID-MID [facility] Last Admin: 02/17/19 14:32 Dose: Not Given Morphine Sulfate (Morphine Sulfate) 1 mg IVPUSH Q3H PRN PRN Reason: respiratory distress Last Admin: 02/17/19 14:38 Dose: 1 mg Ondansetron HCl (Zofran Injection) 4 mg IVPUSH Q8H PRN PRN Reason: NAUSEA Pantoprazole Sodium (Protonix Iv) 40 mg IVPUSH BID JAYCE Potassium Chloride (Potassium Chloride Oral Liquid) 40 meq PO BID [facility] Stop: 02/17/19 22:01 Ranolazine (Ranexa -) 500 mg PO BID [facility] Last Admin: 02/17/19 14:31 Dose: Not Given Rosuvastatin Calcium (Crestor -) 5 mg PO HS [facility] Last Admin: 02/16/19 22:43 Dose: 5 mg Sevelamer Carbonate (Renvela -) 800 mg PO TIDCM [facility] Last Admin: 02/17/19 14:31 Dose: Not Given - Objective Vital Signs: Vital Signs Temperature 97.4 F L 02/17/19 14:59 Pulse Rate 56 L 02/17/19 14:59 Respiratory Rate 22 H 02/17/19 14:59 Blood Pressure 109/45 L 02/17/19 14:59 O2 Sat by Pulse Oximetry (%) 98 02/17/19 08:01 Constitutional: Yes: Moderate Distress Eyes: Yes: Conjunctiva Clear Cardiovascular: Yes: S1, S2 Respiratory: Yes: On Nasal O2, Rhonchi Gastrointestinal: Yes: Soft Genitourinary: Yes: Incontinence Musculoskeletal: Yes: Muscle Weakness Edema: Yes Edema: LLE: 1+, RLE: 1+ Neurological: Yes: Lethargy Labs: CBC, BMP 02/17/19 06:30 02/17/19 06:30 INR, PTT INR 1.89 (0.83-1.09) H 05/06/19 06:30 Problem List - Problems (1) Acute on chronic diastolic (congestive) heart failure Code(s): I50.33 - ACUTE ON CHRONIC DIASTOLIC (CONGESTIVE) HEART FAILURE (2) Altered mental status Code(s): R41.82 - ALTERED MENTAL STATUS, UNSPECIFIED (3) ESRD (end stage renal disease) on dialysis Code(s): N18.6 - END STAGE RENAL DISEASE; Z99.2 - DEPENDENCE ON RENAL DIALYSIS Assessment/Plan Current Medications Generic Name Dose Route Start Last Admin Trade Name Freq PRN Reason Stop Dose Admin Allopurinol 150 mg 02/17/19 10:00 02/17/19 14:32 Zyloprim - PO Not Given DAILY JAYCE Midodrine 5 mg 02/16/19 14:00 02/17/19 14:32 Proamatine - PO Not Given TID-MID JAYCE Morphine Sulfate 1 mg 02/17/19 14:29 02/17/19 14:38 Morphine Sulfate IVPUSH 1 mg Q3H PRN Administration respiratory distress Ondansetron HCl 4 mg 02/16/19 11:51 Zofran Injection IVPUSH Q8H PRN NAUSEA Pantoprazole Sodium 40 mg 02/17/19 22:00 Protonix Iv IVPUSH BID JAYCE Potassium Chloride 40 meq 02/17/19 10:00 Potassium Chloride Oral Liquid PO 02/17/19 22:01 BID JAYCE Ranolazine 500 mg 02/16/19 22:00 02/17/19 14:31 Ranexa - PO Not Given BID JAYCE Rosuvastatin Calcium 5 mg 02/16/19 22:00 02/16/19 22:43 Crestor - PO 5 mg HS JAYCE Administration Sevelamer Carbonate 800 mg 02/16/19 12:00 02/17/19 14:31 Renvela - PO Not Given TIDCM JAYCE Impression 1. ESRD 2. CKD 3. CHF 4. hypotension 5. resp failure requiring bipap 6. a-fib 7. hld 8. bilateral pleural effusions 9. anemia 10. hypokalemia 11. coumadin tox Plan - discussed with family, they want to stop HD - cont oxygen - pt will start morphine - will be on standby
[2019-02-17] MEDS ORDERED: MORPHINE 100 MG in SODIUM CHLORIDE 98 ML IVPB SCH (15:15)
[2019-02-17] MEDS ORDERED: SCOPOLAMINE HYDROBROMIDE 1 PATCH PATCH.TD72 TD SCH (15:30)
--- NOTE | 2019-02-17 16:42 | PN ---
Teaching Attending Note Name of Resident: Luther Lang ATTENDING PHYSICIAN STATEMENT I saw and evaluated the patient. I reviewed the resident's note and discussed the case with the resident. I agree with the resident's findings and plan as documented. SUBJECTIVE: unable to obtain OBJECTIVE: Last Vital Signs Temp Pulse Resp BP Pulse Ox 36.3 C L 56 L 22 H 109/45 L 98 02/17/19 14:59 02/17/19 14:59 02/17/19 14:59 02/17/19 14:59 02/17/19 08:01 Gen: obtunded Pulm: shallow breathing with ronchi CV: bradycardia Abd: +bs, s/nd, slight distention Ext: no c/c/e CBC, BMP 02/17/19 06:30 02/17/19 06:30 ASSESSMENT AND PLAN: -case d/w Dr Virk and Dr Montgomery -begin inpatient hospice -stop unnecessary medications -begin morphine gtt, titrate to comfort -prn ativan -scopolamine patch Problem List - Problems (1) Acute blood loss anemia Code(s): D62 - ACUTE POSTHEMORRHAGIC ANEMIA (2) Warfarin toxicity Code(s): T45.511A - POISONING BY ANTICOAGULANTS, ACCIDENTAL, INIT Qualifiers: Encounter type: initial encounter Injury intent: accidental or unintentional Qualified Code(s): T45.511A - Poisoning by anticoagulants, accidental (unintentional), initial encounter (3) Acute on chronic diastolic (congestive) heart failure Code(s): I50.33 - ACUTE ON CHRONIC DIASTOLIC (CONGESTIVE) HEART FAILURE (4) Altered mental status Code(s): R41.82 - ALTERED MENTAL STATUS, UNSPECIFIED (5) ESRD (end stage renal disease) on dialysis Code(s): N18.6 - END STAGE RENAL DISEASE; Z99.2 - DEPENDENCE ON RENAL DIALYSIS (6) GI bleed Code(s): K92.2 - GASTROINTESTINAL HEMORRHAGE, UNSPECIFIED Qualifiers: GI bleed type/associated pathology: melena Qualified Code(s): K92.1 - Melena (7) Hypokalemia Code(s): E87.6 - HYPOKALEMIA (8) CAD (coronary artery disease) Code(s): I25.10 - ATHSCL HEART DISEASE OF [place] CORONARY ARTERY W/O ANG PCTRS Qualifiers: Coronary Disease-Associated Artery/Lesion type: [place] artery [place] vs. transplanted heart: [place] heart Associated angina: without angina Qualified Code(s): I25.10 - Atherosclerotic heart disease of [place] coronary artery without angina pectoris (9) Hypotension Code(s): I95.9 - HYPOTENSION, UNSPECIFIED Qualifiers: Hypotension type: other hypotension type Qualified Code(s): I95.89 - Other hypotension (10) Atrial fibrillation Code(s): I48.91 - UNSPECIFIED ATRIAL FIBRILLATION Qualifiers: Atrial fibrillation type: permanent Qualified Code(s): I48.2 - Chronic atrial fibrillation (11) Hyperlipidemia Code(s): E78.5 - HYPERLIPIDEMIA, UNSPECIFIED Qualifiers: Hyperlipidemia type: pure hypercholesterolemia Qualified Code(s): E78.00 - Pure hypercholesterolemia, unspecified; E78.0 - Pure hypercholesterolemia
--- NOTE | 2019-02-17 16:54 | PN ---
Physical Exam: SUBJECTIVE: Patient seen and examined at bedside. Pt is obtunded. Unable to obtain history. OBJECTIVE: Vital Signs Period Temp Pulse Resp BP Sys/Ascencio Pulse Ox Last 24 Hr 97.4 F-98.3 F 55-57 18-22 97-109/42-61 97-98 GENERAL: The patient is obtunded. EYES: PERRL LUNGS: Shallow breathing w/use of accessory muscles. HEART: Bradycardic, S1, S2 ABDOMEN: Soft, nontender, nondistended, normoactive bowel sounds NEUROLOGICAL: Obtunded. PSYCH: Obtunded SKIN: Warm, dry Laboratory Results - last 24 hr 02/14/19 02/16/19 02/17/19 00:20 16:25 06:30 WBC 5.2 4.2 RBC 2.42 L 2.51 L Hgb 7.5 L 7.8 L Hct 23.2 L 24.1 L MCV 95.8 96.0 MCH 30.8 31.2 MCHC 32.1 32.5 RDW 18.7 H 18.2 H Plt Count 67 L 73 L MPV 8.5 8.4 Absolute Neuts (auto) 3.2 Neutrophils % 76.1 Lymphocytes % 11.7 Monocytes % 10.5 H Eosinophils % 0.9 Basophils % 0.8 Nucleated RBC % 0 Manual Slide Review Slide review Platelet Comment Decreased PT with INR INR Sodium Potassium Chloride Carbon Dioxide Anion Gap BUN Creatinine Creat Clearance w eGFR Random Glucose Calcium Phosphorus Magnesium Blood Type O POSITIVE Antibody Screen Negative Crossmatch See Detail 02/17/19 02/17/19 06:30 06:30 WBC RBC Hgb Hct MCV MCH MCHC RDW Plt Count MPV Absolute Neuts (auto) Neutrophils % Lymphocytes % Monocytes % Eosinophils % Basophils % Nucleated RBC % Manual Slide Review Platelet Comment PT with INR 22.50 H INR 1.89 H Sodium 141 Potassium 3.0 L Chloride 105 Carbon Dioxide 28 Anion Gap 8 BUN 40 H Creatinine 4.5 H Creat Clearance w eGFR 12.40 Random Glucose 97 Calcium 8.5 Phosphorus 2.8 Magnesium 2.3 Blood Type Antibody Screen Crossmatch Active Medications Generic Name Dose Route Start Last Admin Trade Name Freq PRN Reason Stop Dose Admin Morphine Sulfate 100 mg/ 100 mls @ 1 mls/hr 02/17/19 15:15 02/17/19 16:44 Sodium Chloride IVPB 1 mg/hr TITR JAYCE 1 mls/hr Administration Protocol 1 MG/HR Lorazepam 1 mg 02/17/19 15:18 Ativan Injection - IVPUSH Q3H PRN ANXIETY Morphine Sulfate 1 mg 02/17/19 14:29 02/17/19 14:38 Morphine Sulfate IVPUSH 1 mg Q3H PRN Administration respiratory distress Ondansetron HCl 4 mg 02/16/19 11:51 Zofran Injection IVPUSH Q8H PRN NAUSEA Pantoprazole Sodium 40 mg 02/17/19 22:00 Protonix Iv IVPUSH BID JAYCE Scopolamine HBr 1 patch 02/17/19 15:30 Transderm-Scop - TD Q72H JAYCE ASSESSMENT/PLAN: 88 y/o M w/PMH of CAD s/p CABG, Afib, dCHF, HTN, HLD, carotid stenosis, ESRD on HD presented to the ER for lethargy. Pt found to have supratherapeutic INR an danemia requiring transfusions. Goals of care made by family are now for comfort measures only. -Inpatient hospice -Morphine drip, titrate to keep pt comfortable -Ativan PRN for agitation -Scopolamine patch -D/c'd non-comfort meds -DNR/DNI Visit type - Emergency Visit Emergency Visit: Yes ED Registration Date: 02/14/19 Care time: The patient presented to the Emergency Department on the above date and was hospitalized for further evaluation of their emergent condition. - New Patient This patient is new to me today: Yes Date on this admission: 02/17/19 - Critical Care Critical Care patient: No
[2019-02-17 17:21] VITALS: BP 104/57; PULSE 54; TEMP 97.5
[2019-02-17] MEDS ORDERED: PANTOPRAZOLE SODIUM 40 MG VIAL IVPUSH SCH (22:00)
--- NOTE | 2019-02-17 23:34 | HOSP ---
Subjective - Review of Symptoms Subjective: Paged to examine patient. Patient unresponsive, even to painful stimuli, pupils fixed and non reactive. patient has no spontaneous breathing, no heart sounds or breath sounds. No carotid or femoral pulses present. Time of 23:30 on . Physical Examination Vital Signs: Vital Signs Temperature 97.5 F L 02/17/19 17:20 Pulse Rate 54 L 02/17/19 17:20 Respiratory Rate 20 02/17/19 17:20 Blood Pressure 104/57 L 02/17/19 17:20 O2 Sat by Pulse Oximetry (%) 98 02/17/19 08:01 Labs: CBC, BMP 02/17/19 06:30 02/17/19 06:30 Visit type - Emergency Visit Emergency Visit: No - New Patient This patient is new to me today: Yes Date on this admission: 02/17/19 - Critical Care Critical Care patient: No
== END 2019-02-17 23:30 | disposition expired | DRG 377 ==
LOC: SUPCPDRO 23:28 → JER 23:28 → JERBED 02-14 01:31 → JICU 02-14 14:52 → J8W 02-16 12:10
PROVIDERS: ADMIT Internal Medicine; ATTEND Internal Medicine
PROC: 30233K1 Transfusion of Nonautologous Frozen Plasma into Peripheral Vein, Percutaneous Approach (ICD-10-PCS; principal; 2019-02-14)
PROC: 30233N1 Transfusion of Nonautologous Red Blood Cells into Peripheral Vein, Percutaneous Approach (ICD-10-PCS; 2019-02-14)
PROC: 5A1D70Z Performance of Urinary Filtration, Intermittent, Less than 6 Hours Per Day (ICD-10-PCS; 2019-02-15)
DX: K92.2 Gastrointestinal hemorrhage, unspecified (principal); N18.6 End stage renal disease; I50.33 Acute on chronic diastolic (congestive) heart failure; G93.41 Metabolic encephalopathy; J96.01 Acute respiratory failure with hypoxia; I13.2 Hypertensive heart and chronic kidney disease with heart failure and with stage 5 chronic kidney disease, or end stage renal disease; I24.8 Other forms of acute ischemic heart disease; D68.9 Coagulation defect, unspecified; I48.1 Persistent atrial fibrillation; D62 Acute posthemorrhagic anemia; I25.10 Atherosclerotic heart disease of native coronary artery without angina pectoris; E78.5 Hyperlipidemia, unspecified; J44.9 Chronic obstructive pulmonary disease, unspecified; R00.0 Tachycardia, unspecified; E87.6 Hypokalemia; I65.29 Occlusion and stenosis of unspecified carotid artery; I27.20 Pulmonary hypertension, unspecified; I27.81 Cor pulmonale (chronic); T45.515A Adverse effect of anticoagulants, initial encounter; K57.90 Diverticulosis of intestine, part unspecified, without perforation or abscess without bleeding; M10.9 Gout, unspecified; R41.82 Altered mental status, unspecified; K63.5 Polyp of colon; H35.30 Unspecified macular degeneration; I07.1 Rheumatic tricuspid insufficiency; K59.00 Constipation, unspecified; D69.6 Thrombocytopenia, unspecified; I95.9 Hypotension, unspecified; Z66 Do not resuscitate; T45.511A Poisoning by anticoagulants, accidental (unintentional), initial encounter; Z96.643 Presence of artificial hip joint, bilateral; Z99.2 Dependence on renal dialysis; Z95.1 Presence of aortocoronary bypass graft; Z79.01 Long term (current) use of anticoagulants; Z87.442 Personal history of urinary calculi
CPT/HCPCS: 36415; 36430; 36511; 70450-TC; 71045-TC-FY; 74176-TC; 80048; 80053; 82272; 82550; 82553; 82803; 83605; 83735; 83880; 84100; 84484; 85025; 85027; 85610; 85730; 86850; 86900; 86901; 86922; 87040; 93005; 93010; 93306-TC; 94660; 99285-25; G0480; J0131; J0885; J7030; P9017; P9038; P9047; P9058